=== PATIENT | female | born 1970 | race Caucasian/White ===

== ENCOUNTER 2019-12-21 15:41 | Inpatient (IN) | payer MEDICARE, OTHER ==
[~2019-12-21] VITALS: Ht 182.9 cm; Wt 209.6 kg
[2019-12-21] MEDS ORDERED: HUMALOG KW100 UNIT/1 SC (15:50)
[2019-12-21] MEDS ORDERED: TRESIBA FL200 UNIT/2 SC (15:50)
[2019-12-21] MEDS ORDERED: HYDACE10B PO (15:51)
[2019-12-21] MEDS ORDERED: POTA10T PO (15:51)
[2019-12-21] MEDS ORDERED: HYDRA25 (15:52)
[2019-12-21] MEDS ORDERED: FURO40 PO (15:52)
[2019-12-21] MEDS ORDERED: METO25 (15:52)
[2019-12-21] MEDS ORDERED: Isosorbide Mono30 MG PO (15:52)
[2019-12-21] MEDS ORDERED: ZOCOR20 MG PO (15:53)
[2019-12-21] MEDS ORDERED: LEVSOD112 PO (15:53)
[2019-12-21] MEDS ORDERED: GABA400 PO (15:54)
[2019-12-21] MEDS ORDERED: ALPR1 PO (15:54)
[2019-12-21] MEDS ORDERED: ZOLP10 PO (15:54)
[2019-12-21] MEDS ORDERED: Aspirin EC81 MG PO (15:55)
[2019-12-21] MEDS ORDERED: VENL75ER PO (15:55)
[2019-12-21] MEDS ORDERED: SYMBICORT 80-10.2 GM INH (15:55)
[2019-12-21] MEDS ORDERED: NITR100CA PO ×2 (15:55→21:38)
[2019-12-21] MEDS ORDERED: ALBU2.5V5 INH (15:55)
[2019-12-21 16:38] LABS: BASOPHILS ABSOLUTE AUTO 0.03 K/mm3 (0.00-0.23); BASOPHILS PERCENT AUTO 0 % (0-2); EOSINOPHILS ABSOLUTE AUTO 0.51 K/mm3 (0.00-0.68); EOSINOPHILS PERCENT AUTO 6 % (0-6); Hematocrit 30.5 % (33.0-51.0); Hemoglobin 8.5 g/dL (11.5-16.0); IMMATURE GRAN ABSOLUTE AUTO 0.04 K/mm3 (0.00-0.10); IMMATURE GRAN PERCENT AUTO 1 % (0-1); LYMPHOCYTES ABSOLUTE AUTO 0.43 K/mm3 (0.84-5.20); LYMPHOCYTES PERCENT AUTO 5 % (21-46); MONOCYTES ABSOLUTE AUTO 0.41 K/mm3 (0.16-1.47); MONOCYTES PERCENT AUTO 5 % (4-13); Mean Corpuscular HGB 25.6 pg (26.0-34.0); Mean Corpuscular HGB Conc 27.9 g/dL (31.5-36.5); Mean Corpuscular Volume 92 fL (80-100); NEUTROPHILS ABSOLUTE AUTO 6.52 K/mm3 (1.96-9.15); NEUTROPHILS PERCENT AUTO 82 % (41-73); Platelet Count 279 K/mm3 (150-400); RDW Coefficient Variation 15.9 % (11.7-14.2); RDW Standard Deviation 53.3 fL (35.1-46.3); Red Blood Cell Count 3.32 M/mm3 (3.80-5.20); White Blood Cell Count 7.94 K/mm3 (4.00-11.30)
[2019-12-21 16:48] LABS: C-REACTIVE PROTEIN, EXT RANGE 5.59 mg/dL (0.000-0.300)
[2019-12-21 16:50] LABS: Albumin, Blood 2.9 g/dL (3.4-5.0); Albumin/Globulin Ratio 0.8 (0.8-1.8); Bilirubin, Total 0.3 mg/dL (0.1-1.0); Bun/Creatinine Ratio 23.2 (12.0-20.0); Calcium, Blood 8.9 mg/dL (8.5-10.1); Creatinine, Blood 1.64 mg/dL (0.40-1.00); Globulin, Blood 3.8 g/dL (2.2-4.0); Total Protein, Blood 6.7 g/dL (6.4-8.2)
[2019-12-21] MEDS ORDERED: TRULICITY1.5 MG/0.1 SC (18:03)
[2019-12-21] MEDS ORDERED: Neurontin400 MG PO (18:04)
[2019-12-21] MEDS ORDERED: HYDHCL25 PO (18:04)
[2019-12-21] MEDS ORDERED: HYDRA25 PO (18:05)
[2019-12-21] MEDS ORDERED: TORSE20 PO (18:05)
[2019-12-21] MEDS ORDERED: EUTHYROX112 MC1 PO (18:06)
[2019-12-21] MEDS ORDERED: Simvastatin20 MG PO (18:06)
[2019-12-21] MEDS ORDERED: METOPROLOL TART25 MG PO (18:06)
[2019-12-21] MEDS ORDERED: ISOSORBIDE MONO30 MG PO (18:06)
[2019-12-21] MEDS ORDERED: K-Dur 20 meq T20 MEQ PO (18:07)
[2019-12-21] MEDS ORDERED: Norco 10-325 T1 EACH PO (21:40)
[2019-12-21 22:40] LABS: Source, Urine Clean Catch
[2019-12-21 22:54] LABS: Appearance, Urine Clear (Clear); Bilirubin, Urine Neg (Neg); Blood, Urine Neg (Neg); Color, Urine Yellow (P-Yellow); Glucose Qualitative, Urine Neg (Neg); Ketones, Urine Neg (Neg); Leukocyte Esterase, Urine Neg (Neg); Nitrite, Urine Neg (Neg); Protein, Urine Neg (Neg); Specific Gravity, Urine 1.015 (1.003-1.022); Urobilinogen, Urine NORM (Normal)
--- NOTE | 2019-12-22 04:13 | NUR ---
SHIFT SUMMARY PT WAS NEW ER ADMIT ([id number]), XFER'D VIA SLIDER, PT STATES SHE IS UNABLE TO AMBULATE AT THIS TIME, C/O PAIN IN LEGS & BACK (STATES WORST PAIN IS IN L LEG), MEDICATED PER JUN FOR PAIN, NO OTHER C/O ANY KIND, CLEANED & LIGHTLY DRESSED BLE AND PLACED CHUCKES UNDER FOR MODERATE WEEPING, PT SLEPT T/O THE NIGHT, SLEEPING AT THIS TIME, CALL LIGHT IN REACH, WILL CONT TO MONITOR UNTIL REPORT GIVEN TO DAY RN.
[2019-12-22 05:43] LABS: BASOPHILS ABSOLUTE AUTO 0.04 K/mm3 (0.00-0.23); BASOPHILS PERCENT AUTO 0 % (0-2); EOSINOPHILS ABSOLUTE AUTO 0.45 K/mm3 (0.00-0.68); EOSINOPHILS PERCENT AUTO 5 % (0-6); Hematocrit 31.9 % (33.0-51.0); IMMATURE GRAN ABSOLUTE AUTO 0.05 K/mm3 (0.00-0.10); IMMATURE GRAN PERCENT AUTO 1 % (0-1); LYMPHOCYTES ABSOLUTE AUTO 0.34 K/mm3 (0.84-5.20); LYMPHOCYTES PERCENT AUTO 4 % (21-46); MONOCYTES ABSOLUTE AUTO 0.56 K/mm3 (0.16-1.47); MONOCYTES PERCENT AUTO 6 % (4-13); Mean Corpuscular HGB 25.8 pg (26.0-34.0); Mean Corpuscular HGB Conc 28.2 g/dL (31.5-36.5); Mean Corpuscular Volume 91 fL (80-100); Mean Platelet Volume 10.9 fL (9.1-12.4); NEUTROPHILS ABSOLUTE AUTO 7.79 K/mm3 (1.96-9.15); NEUTROPHILS PERCENT AUTO 84 % (41-73); Platelet Count 305 K/mm3 (150-400); RDW Coefficient Variation 15.9 % (11.7-14.2); RDW Standard Deviation 52.3 fL (35.1-46.3); Red Blood Cell Count 3.49 M/mm3 (3.80-5.20); White Blood Cell Count 9.23 K/mm3 (4.00-11.30)
[2019-12-22 06:07] LABS: Bun/Creatinine Ratio 21.5 (12.0-20.0); Calcium, Blood 8.4 mg/dL (8.5-10.1); Creatinine, Blood 1.58 mg/dL (0.40-1.00); Potassium, Blood 3.9 mmol/L (3.5-5.5)
--- NOTE | 2019-12-22 17:16 | NUR ---
SHIFT SUMMARY PATIENT ALERT, ORIENTED, AND COOPERATIVE WITH CARE. PATIENT'S LEGS CONTINUE TO WEEP. PATIENT BEDBOUND AT THIS TIME, STATES SHE WALKS OCCASIONALLY AT HOME. PATIENT REFUSED TO WORK WITH THERAPY THIS AFTERNOON. PATIENT'S SON IN THE ROOM THIS AFTERNOON TO VISIT. PATIENT REFUSED BREAKFAST AND LUNCH THIS SHIFT. PATIENT MEDICATED FOR PAIN THROUGHOUT THIS SHIFT. PATIENT DENIES NEEDS THROUGHOUT THIS SHIFT. PATIENT CURRENTLY SITTING UP IN BED WATCHING TELEVISION.
[2019-12-23 05:28] LABS: BASOPHILS ABSOLUTE AUTO 0.02 K/mm3 (0.00-0.23); BASOPHILS PERCENT AUTO 0 % (0-2); EOSINOPHILS PERCENT AUTO 0 % (0-6); Hematocrit 29.5 % (33.0-51.0); Hemoglobin 8.2 g/dL (11.5-16.0); IMMATURE GRAN ABSOLUTE AUTO 0.02 K/mm3 (0.00-0.10); IMMATURE GRAN PERCENT AUTO 0 % (0-1); LYMPHOCYTES ABSOLUTE AUTO 0.31 K/mm3 (0.84-5.20); LYMPHOCYTES PERCENT AUTO 5 % (21-46); MONOCYTES PERCENT AUTO 3 % (4-13); Mean Corpuscular HGB 25.8 pg (26.0-34.0); Mean Corpuscular HGB Conc 27.8 g/dL (31.5-36.5); Mean Corpuscular Volume 93 fL (80-100); NEUTROPHILS ABSOLUTE AUTO 6.31 K/mm3 (1.96-9.15); NEUTROPHILS PERCENT AUTO 92 % (41-73); Platelet Count 264 K/mm3 (150-400); RDW Coefficient Variation 15.5 % (11.7-14.2); RDW Standard Deviation 53.1 fL (35.1-46.3); Red Blood Cell Count 3.18 M/mm3 (3.80-5.20); White Blood Cell Count 6.86 K/mm3 (4.00-11.30)
[2019-12-23 05:51] LABS: Bun/Creatinine Ratio 23.9 (12.0-20.0); Calcium, Blood 8.5 mg/dL (8.5-10.1); Creatinine, Blood 1.59 mg/dL (0.40-1.00); Potassium, Blood 4.7 mmol/L (3.5-5.5)
--- NOTE | 2019-12-23 18:44 | NUR ---
SHIFT SUMMARY PATIENT IS PLEASANT, ALERT AND ORIENTED. SHE DOES NOTE THAT SHE REQUESTS TO BE TURNED EVERY TWO HOURS. SHE STATES NO ONE HAD BEEN DOING THAT FOR HER AT THIS TIME. DENIES ANY OTHER CONCERNS AT THIS TIME. SHE IS JUST STARTING TO FEEL BETTER. HER BLOOD SUGARS ARE GOING UP AT THIS TIME.
--- NOTE | 2019-12-24 07:26 | NUR ---
SHIFT SUMMARY PATIENT ALERT AND ORIENTED. REQUIRES MAX ASSISTANCE FROM TWO PEOPLE FOR ALL BED MOBILITY. PATIENT ASKING FOR PAIN MEDS EVERY TWO HOURS WHILE AWAKE. MEDICATED PER EMAR. BED IN LOWEST POSITION WITH WHEELS LOCKED. CALL LIGHT WITHIN REACH. REPORT GIVEN TO ONCOMING RN.
--- NOTE | 2019-12-25 07:05 | NUR ---
SHIFT SUMMARY PATIENT ALERT AND ORIENTED. STAYED IN BED AND SLEPT MOST OF THE NIGHT. CHANGED PATIENT'S PURE WICK. IV PATENT AND FLUSHED. PATIENT MEDICATED FOR PAIN NEEDED PER EMAR. BED IN LOWEST POSITION WITH WHEELS LOCKED. CALL LIGHT WITHIN REACH. REPORT GIVEN TO ONCOMING RN.
--- NOTE | 2019-12-25 18:14 | NUR ---
SHIFT SUMMARY PATIENT IS PLEASANT, ALERT AND ORIENTED. SHE HAD WOUND CARE DONE TODAY AND A BED BATH. SHE DENIES ANY CONCERNS AT THIS TIME. HER PAIN IS GETTING BETTER EXCEPT DURING WOUND CARE. LEGS ARE DRAINING QUITE A BIT NOW. STILL HAS THE PURE WICK IN PLACE. SHE IS GETTING STRONGER AND IS ABLE TO HELP PULL HERSELF UP IN BED.
--- NOTE | 2019-12-26 07:23 | NUR ---
SHIFT SUMMARY PATIENT ALERT AND ORIENTED. MEDICATED NEEDED PER EMAR FOR PAIN. IV PATENT AND FLUSHED. PATIENT SLEPT WELL OVERNIGHT. BED IN LOWEST POSITION WITH WHEELS LOCKED. CALL LIGHT WITHIN REACH. REPORT GIVEN TO ONCOMING RN.
[2019-12-26 10:01] LABS: Percent Saturation 13.7 % (15.0-50.0)
[2019-12-26] MEDS ORDERED: FLUZONE QU IM (10:07)
[2019-12-26] MEDS ORDERED: SENN187 PO (10:07)
--- NOTE | 2019-12-26 16:59 | NUR ---
Initial spiritual care note: Maryjane was pleasantly dismissive. She denied concerns and told me she is being d/c to rehab today. She is hopeful for recovery and tells me she has strong support from family.
== END 2019-12-26 18:13 | DRG 543 ==
LOC: ER 15:41 → ERHOLD 15:43 → MEDS 20:49 → ENPENDDIS 12-26 09:35 → MEDS 12-26 18:13
PROVIDERS: Emergency Medicine; Family Medicine; Hospitalist; Internal Medicine; Nurse Practitioner Acute Care; ADMIT Internal Medicine
DX: M48.56XA Collapsed vertebra, not elsewhere classified, lumbar region, initial encounter for fracture (principal); Z68.44 Body mass index [BMI] 60.0-69.9, adult; E11.22 Type 2 diabetes mellitus with diabetic chronic kidney disease; E11.51 Type 2 diabetes mellitus with diabetic peripheral angiopathy without gangrene; E11.621 Type 2 diabetes mellitus with foot ulcer; N18.3 Chronic kidney disease, stage 3 (moderate); Z79.4 Long term (current) use of insulin; E66.01 Morbid (severe) obesity due to excess calories; D64.9 Anemia, unspecified; I89.0 Lymphedema, not elsewhere classified; E03.9 Hypothyroidism, unspecified; E78.5 Hyperlipidemia, unspecified; F41.8 Other specified anxiety disorders; F17.210 Nicotine dependence, cigarettes, uncomplicated; G47.00 Insomnia, unspecified; I12.9 Hypertensive chronic kidney disease with stage 1 through stage 4 chronic kidney disease, or unspecified chronic kidney disease
CPT/HCPCS: 36415; 72100; 73590; 80048; 80053; 81003; 82728; 82947; 83540; 83550; 83690; 85025; 85651; 86140; 94640; 94660; 94760; 94762; 96372; 96374; 96375; 96376; 97110; 97162; 97530; 99285-25; 99407; A9270; A9270-GY; G0378; J1170; J1644; J2270; J7509; U0002

== ENCOUNTER 2020-01-23 00:32 | Day surgery (SDC) | payer MEDICARE, OTHER ==
[~2020-01-23 00:32] MED LIST: ALBU2.5V5 INH; ALPR1 PO; Aspirin EC81 MG PO; EUTHYROX112 MC1 PO; FLUZONE QU IM; FURO40 PO; GABA400 PO; HUMALOG KW100 UNIT/1 SC; HYDACE10B PO; HYDHCL25 PO; HYDRA25; HYDRA25 PO; ISOSORBIDE MONO30 MG PO; Isosorbide Mono30 MG PO; K-Dur 20 meq T20 MEQ PO; LEVSOD112 PO; METO25; METOPROLOL TART25 MG PO; NITR100CA PO; Neurontin400 MG PO; Norco 10-325 T1 EACH PO; POTA10T PO; SENN187 PO; SYMBICORT 80-10.2 GM INH; Simvastatin20 MG PO; TORSE20 PO; TRESIBA FL200 UNIT/2 SC; TRULICITY1.5 MG/0.1 SC; VENL75ER PO; ZOCOR20 MG PO; ZOLP10 PO
== END 2020-01-23 22:40 | disposition home or self-care (01) ==
LOC: WOUND 00:32
DX: I87.2 Venous insufficiency (chronic) (peripheral) (principal); E10.622 Type 1 diabetes mellitus with other skin ulcer; E10.22 Type 1 diabetes mellitus with diabetic chronic kidney disease; E10.40 Type 1 diabetes mellitus with diabetic neuropathy, unspecified; L97.819 Non-pressure chronic ulcer of other part of right lower leg with unspecified severity; L97.829 Non-pressure chronic ulcer of other part of left lower leg with unspecified severity; L89.622 Pressure ulcer of left heel, stage 2; F17.200 Nicotine dependence, unspecified, uncomplicated; J44.9 Chronic obstructive pulmonary disease, unspecified; N18.6 End stage renal disease; Z79.899 Other long term (current) drug therapy; Z88.0 Allergy status to penicillin
CPT/HCPCS: G0463

== ENCOUNTER 2020-02-08 18:59 | Inpatient (IN) | payer MEDICARE, OTHER ==
[~2020-02-08] VITALS: Ht 182.9 cm; Wt 172.4 kg
[~2020-02-08 18:59] MED LIST changes: -ALBU2.5V5 INH; -ALPR1 PO; -Aspirin EC81 MG PO; -FURO40 PO; -HUMALOG KW100 UNIT/1 SC; -HYDHCL25 PO; -HYDRA25 PO; -ISOSORBIDE MONO30 MG PO; -K-Dur 20 meq T20 MEQ PO; -LEVSOD112 PO; -METOPROLOL TART25 MG PO; -Neurontin400 MG PO; -SYMBICORT 80-10.2 GM INH; -TRESIBA FL200 UNIT/2 SC; -TRULICITY1.5 MG/0.1 SC; -VENL75ER PO; -ZOCOR20 MG PO; -ZOLP10 PO
[2020-02-08 20:23] LABS: BASOPHILS ABSOLUTE AUTO 0.03 K/mm3 (0.00-0.23); BASOPHILS PERCENT AUTO 1 % (0-2); EOSINOPHILS ABSOLUTE AUTO 0.35 K/mm3 (0.00-0.68); EOSINOPHILS PERCENT AUTO 8 % (0-6); Hematocrit 29.2 % (33.0-51.0); Hemoglobin 8.4 g/dL (11.5-16.0); IMMATURE GRAN ABSOLUTE AUTO 0.01 K/mm3 (0.00-0.10); IMMATURE GRAN PERCENT AUTO 0 % (0-1); LYMPHOCYTES ABSOLUTE AUTO 0.35 K/mm3 (0.84-5.20); LYMPHOCYTES PERCENT AUTO 8 % (21-46); MONOCYTES PERCENT AUTO 7 % (4-13); Mean Corpuscular HGB 25.1 pg (26.0-34.0); Mean Corpuscular HGB Conc 28.8 g/dL (31.5-36.5); Mean Corpuscular Volume 87 fL (80-100); Mean Platelet Volume 11.5 fL (9.1-12.4); NEUTROPHILS ABSOLUTE AUTO 3.43 K/mm3 (1.96-9.15); NEUTROPHILS PERCENT AUTO 77 % (41-73); Platelet Count 232 K/mm3 (150-400); RDW Coefficient Variation 16.6 % (11.7-14.2); RDW Standard Deviation 53.2 fL (35.1-46.3); Red Blood Cell Count 3.34 M/mm3 (3.80-5.20); White Blood Cell Count 4.47 K/mm3 (4.00-11.30)
[2020-02-08] MEDS ORDERED: ZOCOR20 MG PO (20:40)
[2020-02-08] MEDS ORDERED: LEVSOD112 PO (20:40)
[2020-02-08] MEDS ORDERED: FURO40 PO (20:40)
[2020-02-08] MEDS ORDERED: Neurontin400 MG PO (20:41)
[2020-02-08] MEDS ORDERED: SYMBICORT 80-10.2 GM INH (20:41)
[2020-02-08] MEDS ORDERED: HYDHCL25 PO (20:41)
[2020-02-08] MEDS ORDERED: ISOSORBIDE MONO60 MG PO (20:42)
[2020-02-08] MEDS ORDERED: HYDRA25 PO (20:42)
[2020-02-08] MEDS ORDERED: METOPROLOL TART25 MG PO (20:42)
[2020-02-08] MEDS ORDERED: K-Dur 20 meq T20 MEQ PO (20:42)
[2020-02-08] MEDS ORDERED: CYCL10 PO (20:44)
[2020-02-08 20:45] LABS: Albumin/Globulin Ratio 0.8 (0.8-1.8); BASOPHILS ABSOLUTE MAN 0.04 K/mm3 (0.00-0.23); BASOPHILS PERCENT MAN 1 % (0-2); Bilirubin, Total 0.5 mg/dL (0.1-1.0); Bun/Creatinine Ratio 14.7 (12.0-20.0); Calcium, Blood 8.8 mg/dL (8.5-10.1); Creatinine, Blood 1.56 mg/dL (0.40-1.00); EOSINOPHILS ABSOLUTE MAN 0.22 K/mm3 (0.00-0.68); EOSINOPHILS PERCENT MAN 5 % (0-6); Globulin, Blood 3.6 g/dL (2.2-4.0); LYMPHOCYTES ABSOLUTE MAN 0.17 K/mm3 (0.84-5.20); LYMPHOCYTES PERCENT MAN 4 % (21-46); MONOCYTES ABSOLUTE MAN 0.17 K/mm3 (0.16-1.47); MONOCYTES PERCENT MAN 4 % (4-13); NEUTROPHILS ABSOLUTE MAN 3.84 K/mm3 (1.96-9.15); Potassium, Blood 4.3 mmol/L (3.5-5.5); SEG NEUTROPHILS PERCENT MAN 86 % (41-73); TOTAL CELLS COUNTED 100; Total Protein, Blood 6.6 g/dL (6.4-8.2)
[2020-02-08] MEDS ORDERED: TRESIBA FL200 UNIT/2 SC (20:46)
[2020-02-08] MEDS ORDERED: Venlafaxine HCl75 MG PO (20:46)
[2020-02-08] MEDS ORDERED: TRULICITY1.5 MG/0.1 SC (20:47)
[2020-02-08] MEDS ORDERED: ZOLP10 PO (20:47)
[2020-02-08] MEDS ORDERED: ALPR1 PO (20:47)
[2020-02-08] MEDS ORDERED: Aspirin EC81 MG PO (20:48)
[2020-02-08] MEDS ORDERED: ZOFRAN4 MG PO (21:00)
[2020-02-08] MEDS ORDERED: ALBU90OI INH (21:01)
[2020-02-08] MEDS ORDERED: NOVOLOG FL100 UNIT/3 SC (21:01)
[2020-02-09 02:08] LABS: Source, Urine Clean Catch
[2020-02-09 02:14] LABS: Bilirubin, Urine Neg (Neg); Blood, Urine Neg (Neg); Glucose Qualitative, Urine Neg (Neg); Ketones, Urine Neg (Neg); Leukocyte Esterase, Urine 1+ (Neg); Nitrite, Urine Neg (Neg); Protein, Urine Neg (Neg); Urobilinogen, Urine NORM (Normal)
[2020-02-09 02:16] LABS: Appearance, Urine Clear (Clear); Color, Urine Yellow (P-Yellow)
[2020-02-09 02:24] LABS: Bacteria Few /hpf; Red Blood Cells, Urine Not Seen /hpf (0-2); Squamous Epithelial Cells Few /hpf (Few); White Blood Cells, Urine 0-2 /hpf (0-5)
--- NOTE | 2020-02-09 04:54 | NUR ---
COTTON BUYER SUMMARY A/OX4. SEVERAL ULCERS TO LLE, CELLULITIS BILATERALLY. SEE PICTURES IN CHART. PT GIVEN OT DOSE OF HER EVENING MEDICATIONS. C/O SEVERE BACK PAIN, MEDICATED PER EMAR. COMPLIANT WITH CPAP, CONTINOUS BIOX IN PLACE. VSS. NO ACUTE DISTRESS NOTED. BED IN LOWEST POSITION WITH CALL LIGHT IN REACH. WILL CONTINUE TO MONITOR AND REPORT TO ONCOMING RN.
[2020-02-09 05:50] LABS: BASOPHILS ABSOLUTE AUTO 0.03 K/mm3 (0.00-0.23); BASOPHILS PERCENT AUTO 1 % (0-2); EOSINOPHILS ABSOLUTE AUTO 0.35 K/mm3 (0.00-0.68); EOSINOPHILS PERCENT AUTO 11 % (0-6); Hematocrit 26.2 % (33.0-51.0); Hemoglobin 7.5 g/dL (11.5-16.0); IMMATURE GRAN ABSOLUTE AUTO 0.02 K/mm3 (0.00-0.10); IMMATURE GRAN PERCENT AUTO 1 % (0-1); LYMPHOCYTES ABSOLUTE AUTO 0.35 K/mm3 (0.84-5.20); LYMPHOCYTES PERCENT AUTO 11 % (21-46); MONOCYTES ABSOLUTE AUTO 0.27 K/mm3 (0.16-1.47); MONOCYTES PERCENT AUTO 8 % (4-13); Mean Corpuscular HGB 24.9 pg (26.0-34.0); Mean Corpuscular HGB Conc 28.6 g/dL (31.5-36.5); Mean Corpuscular Volume 87 fL (80-100); Mean Platelet Volume 11.5 fL (9.1-12.4); NEUTROPHILS ABSOLUTE AUTO 2.29 K/mm3 (1.96-9.15); NEUTROPHILS PERCENT AUTO 69 % (41-73); Platelet Count 202 K/mm3 (150-400); RDW Coefficient Variation 16.6 % (11.7-14.2); RDW Standard Deviation 51.8 fL (35.1-46.3); Red Blood Cell Count 3.01 M/mm3 (3.80-5.20); White Blood Cell Count 3.31 K/mm3 (4.00-11.30)
[2020-02-09 06:05] LABS: Albumin, Blood 2.6 g/dL (3.4-5.0); Albumin/Globulin Ratio 0.8 (0.8-1.8); Bilirubin, Total 0.4 mg/dL (0.1-1.0); Bun/Creatinine Ratio 14.6 (12.0-20.0); Calcium, Blood 8.5 mg/dL (8.5-10.1); Creatinine, Blood 1.64 mg/dL (0.40-1.00); Globulin, Blood 3.4 g/dL (2.2-4.0); Potassium, Blood 3.9 mmol/L (3.5-5.5)
--- NOTE | 2020-02-09 18:35 | NUR ---
PT SLEPT LAST THIS MORNING, AWAKE, ALERT AND ORIENTED T/O THE REST OF THE SHIFT WITH SHORT NAPS. SHE DID WORK WITH O.T THIS MORNING, ABLE TO STAND, TRANSFER AND AMBULATE SHORT DISTANCE. NO ACUTE CHANGES NOTED THIS SHIFT, WILL CONTINUE TO MONITOR AND REPORT TO ONCOMING RN
--- NOTE | 2020-02-09 19:10 | NUR ---
ASSUMED CARE RECEIVED REPORT FROM MAGDALENO STEVENS. ASSUMED CARE OF PT. PT RESTING COMFORTABLY AT THIS TIME, NO S/S ACUTE DISTRESS NOTED, RESPS EVEN AND UNLABORED. DENIES NEEDS. CALL LIGHT, POSSESSIONS IN REACH, BED IN LOW POSITION. WILL CONTINUE TO MONITOR.
--- NOTE | 2020-02-09 21:20 | NUR ---
SPOKE TO DR. RIVERS REGARDING PT'S CRITICAL BLOOD GLUCOSE. ORDERS RECEIVED. CONTINUE TO MONITOR.
--- NOTE | 2020-02-10 00:32 | NUR ---
SPOKE TO DR. BLAKE REGARDING PT'S RECEIVING IVPB ABX. ORDERS RECEIVED FOR TKO IVF. CONTINUE TO MONITOR.
[2020-02-10 05:39] LABS: BASOPHILS ABSOLUTE AUTO 0.03 K/mm3 (0.00-0.23); BASOPHILS PERCENT AUTO 1 % (0-2); EOSINOPHILS PERCENT AUTO 12 % (0-6); Hematocrit 27.4 % (33.0-51.0); Hemoglobin 7.9 g/dL (11.5-16.0); IMMATURE GRAN ABSOLUTE AUTO 0.01 K/mm3 (0.00-0.10); IMMATURE GRAN PERCENT AUTO 0 % (0-1); LYMPHOCYTES ABSOLUTE AUTO 0.46 K/mm3 (0.84-5.20); LYMPHOCYTES PERCENT AUTO 14 % (21-46); MONOCYTES ABSOLUTE AUTO 0.34 K/mm3 (0.16-1.47); MONOCYTES PERCENT AUTO 10 % (4-13); Mean Corpuscular HGB 25.1 pg (26.0-34.0); Mean Corpuscular HGB Conc 28.8 g/dL (31.5-36.5); Mean Corpuscular Volume 87 fL (80-100); Mean Platelet Volume 10.9 fL (9.1-12.4); NEUTROPHILS ABSOLUTE AUTO 2.16 K/mm3 (1.96-9.15); NEUTROPHILS PERCENT AUTO 64 % (41-73); Platelet Count 226 K/mm3 (150-400); RDW Standard Deviation 53.6 fL (35.1-46.3); Red Blood Cell Count 3.15 M/mm3 (3.80-5.20)
[2020-02-10 06:14] LABS: Bun/Creatinine Ratio 15.3 (12.0-20.0); Calcium, Blood 8.9 mg/dL (8.5-10.1); Creatinine, Blood 1.57 mg/dL (0.40-1.00); Potassium, Blood 3.9 mmol/L (3.5-5.5)
--- NOTE | 2020-02-10 06:53 | NUR ---
SPOKE TO DR. BLAKE REGARDING PT'S CRITICAL BLOOD GLUCOSE AND INTERVENTIONS DONE. NO NEW ORDERS RECEIVED. CONTINUE TO MONITOR.
--- NOTE | 2020-02-10 07:44 | NUR ---
SHIFT SUMMARY PT SLEPT ON AND OFF T/O NIGHT, TOLERATED CPAP WELL. PAIN MANAGED WITH MEDS PER EMAR. BLOOD GLUCOSE LEVELS UNSTABLE T/O NIGHT D/T PT NOT EATING MUCH, SEE PRIOR NOTES. CBG 84 AFTER SYRINGE OF D50 ADMINISTERED THIS AM, ALONG WITH A SNACK. PT ASLEEP AT THIS TIME, RESPS EVEN AND UNLABORED, O2 SATS STABLE ON 2L O2/NC. VS AND AM LABS REVIEWED. PT DENIES NEEDS. CALL LIGHT, POSSESSIONS IN REACH, BED IN LOW POSITION. REPORT GIVEN TO MAGDALENO LEONARDO.
[2020-02-10] MEDS ORDERED: LACTOBACILLUS1 EAC4 PO (12:44)
[2020-02-10] MEDS ORDERED: CLIN150 PO (12:45)
[2020-02-10] MEDS ORDERED: Norco 5-325 Ta1 EACH PO (14:32)
== END 2020-02-10 14:53 | disposition home health service (06) | DRG 603 ==
LOC: ER 18:59 → MEDS 19:00
PROVIDERS: Emergency Medicine; Student in an Organized Health Care Education/Training Program; ADMIT Internal Medicine
DX: L03.115 Cellulitis of right lower limb (principal); Z68.43 Body mass index [BMI] 50.0-59.9, adult; L03.116 Cellulitis of left lower limb; J45.909 Unspecified asthma, uncomplicated; E10.22 Type 1 diabetes mellitus with diabetic chronic kidney disease; I12.9 Hypertensive chronic kidney disease with stage 1 through stage 4 chronic kidney disease, or unspecified chronic kidney disease; N18.30 Chronic kidney disease, stage 3 unspecified; D63.1 Anemia in chronic kidney disease; E78.5 Hyperlipidemia, unspecified; E03.9 Hypothyroidism, unspecified; E87.6 Hypokalemia; G89.29 Other chronic pain; M54.9 Dorsalgia, unspecified; F32.9 Major depressive disorder, single episode, unspecified; F41.9 Anxiety disorder, unspecified; G47.00 Insomnia, unspecified; E66.01 Morbid (severe) obesity due to excess calories; M19.90 Unspecified osteoarthritis, unspecified site; F17.210 Nicotine dependence, cigarettes, uncomplicated; Z86.14 Personal history of Methicillin resistant Staphylococcus aureus infection; Z88.0 Allergy status to penicillin; Z79.82 Long term (current) use of aspirin; Z79.4 Long term (current) use of insulin; Z79.899 Other long term (current) drug therapy
CPT/HCPCS: 36415; 71045; 80048; 80053; 81001; 82947; 83880; 85025; 87070; 87077; 87147; 87186; 87205; 94640; 94660; 94760; 94762; 96365; 96366; 96367; 96372; 96375; 96376; 97165; 97530; 99285-25; A9270; A9270-GY; G0378; J0696; J1650; J1885; J2405; J3010; J3370; J7030; J7050

== ENCOUNTER → 2020-04-12 | Outpatient (CLI) | payer MEDICARE, OTHER ==
[~2020-04-12] MED LIST changes: +ALBU90OI INH; +ALPR1 PO; +Aspirin EC81 MG PO; +CLIN150 PO; +CYCL10 PO; +FURO40 PO; +HYDHCL25 PO; +HYDRA25 PO; +ISOSORBIDE MONO60 MG PO; +K-Dur 20 meq T20 MEQ PO; +LACTOBACILLUS1 EAC4 PO; +LEVSOD112 PO; +METOPROLOL TART25 MG PO; +NOVOLOG FL100 UNIT/3 SC; +Neurontin400 MG PO; +Norco 5-325 Ta1 EACH PO; +SYMBICORT 80-10.2 GM INH; +TRESIBA FL200 UNIT/2 SC; +TRULICITY1.5 MG/0.1 SC; +Venlafaxine HCl75 MG PO; +ZOCOR20 MG PO; +ZOFRAN4 MG PO; +ZOLP10 PO
[2020-04-12 17:57] LABS: BASOPHILS ABSOLUTE AUTO 0.05 K/mm3 (0.00-0.23); BASOPHILS PERCENT AUTO 1 % (0-2); EOSINOPHILS ABSOLUTE AUTO 0.45 K/mm3 (0.00-0.68); EOSINOPHILS PERCENT AUTO 9 % (0-6); Hematocrit 34.3 % (33.0-51.0); Hemoglobin 10.2 g/dL (11.5-16.0); IMMATURE GRAN ABSOLUTE AUTO 0.02 K/mm3 (0.00-0.10); IMMATURE GRAN PERCENT AUTO 0 % (0-1); LYMPHOCYTES ABSOLUTE AUTO 0.35 K/mm3 (0.84-5.20); LYMPHOCYTES PERCENT AUTO 7 % (21-46); MONOCYTES ABSOLUTE AUTO 0.33 K/mm3 (0.16-1.47); MONOCYTES PERCENT AUTO 7 % (4-13); Mean Corpuscular HGB 26.7 pg (26.0-34.0); Mean Corpuscular HGB Conc 29.7 g/dL (31.5-36.5); Mean Corpuscular Volume 90 fL (80-100); Mean Platelet Volume 11.6 fL (9.1-12.4); NEUTROPHILS ABSOLUTE AUTO 3.62 K/mm3 (1.96-9.15); NEUTROPHILS PERCENT AUTO 75 % (41-73); Platelet Count 253 K/mm3 (150-400); RDW Coefficient Variation 15.9 % (11.7-14.2); RDW Standard Deviation 52.9 fL (35.1-46.3); RETICULOCYTE ABSOLUTE 0.0615 M/mm3 (0.0200-0.1100); RETICULOCYTE COUNT PERCENT 1.61 % (0.50-2.50); Red Blood Cell Count 3.82 M/mm3 (3.80-5.20); White Blood Cell Count 4.82 K/mm3 (4.00-11.30)
[2020-04-12 18:14] LABS: Creatinine, Blood 1.45 mg/dL (0.40-1.00); Free Thyroxine 1.33 ng/dL (0.70-1.60); Potassium, Blood 4.3 mmol/L (3.5-5.5)
[2020-04-12 18:36] LABS: Thyroid Stimulating Hormone 2.88 uIU/mL (0.360-4.800)
== END ==
LOC: LAB 14:52 → LAB SHORT 14:52
PROVIDERS: Physician Assistant
DX: N18.30 Chronic kidney disease, stage 3 unspecified (principal); D63.1 Anemia in chronic kidney disease; D50.8 Other iron deficiency anemias; D51.9 Vitamin B12 deficiency anemia, unspecified; E03.9 Hypothyroidism, unspecified
CPT/HCPCS: 80048; 82607; 82746; 83540; 83550; 84439; 84443; 85025; 85045

== ENCOUNTER → 2020-05-03 | Outpatient (CLI) | payer MEDICARE, OTHER ==
[2020-05-03 19:48] LABS: BASOPHILS ABSOLUTE AUTO 0.07 K/mm3 (0.00-0.23); BASOPHILS PERCENT AUTO 1 % (0-2); EOSINOPHILS ABSOLUTE AUTO 0.57 K/mm3 (0.00-0.68); EOSINOPHILS PERCENT AUTO 10 % (0-6); Hematocrit 34.3 % (33.0-51.0); Hemoglobin 10.2 g/dL (11.5-16.0); IMMATURE GRAN ABSOLUTE AUTO 0.02 K/mm3 (0.00-0.10); IMMATURE GRAN PERCENT AUTO 0 % (0-1); LYMPHOCYTES ABSOLUTE AUTO 0.31 K/mm3 (0.84-5.20); LYMPHOCYTES PERCENT AUTO 6 % (21-46); MONOCYTES PERCENT AUTO 6 % (4-13); Mean Corpuscular HGB 27.1 pg (26.0-34.0); Mean Corpuscular HGB Conc 29.7 g/dL (31.5-36.5); Mean Corpuscular Volume 91 fL (80-100); Mean Platelet Volume 11.3 fL (9.1-12.4); NEUTROPHILS ABSOLUTE AUTO 4.19 K/mm3 (1.96-9.15); NEUTROPHILS PERCENT AUTO 77 % (41-73); Platelet Count 227 K/mm3 (150-400); RDW Coefficient Variation 14.9 % (11.7-14.2); RDW Standard Deviation 49.9 fL (35.1-46.3); Red Blood Cell Count 3.76 M/mm3 (3.80-5.20); White Blood Cell Count 5.46 K/mm3 (4.00-11.30)
[2020-05-03 20:03] LABS: Albumin, Blood 3.3 g/dL (3.4-5.0); Bilirubin, Direct 0.2 mg/dL (0.0-0.3); Bun/Creatinine Ratio 25.6 (12.0-20.0); Creatinine, Blood 1.56 mg/dL (0.40-1.00); Phosphorus, Blood 4.4 mg/dL (2.5-4.9); Potassium, Blood 4.4 mmol/L (3.5-5.5)
[2020-05-03 20:07] LABS: Percent Saturation 22.3 % (15.0-50.0)
[2020-05-03 20:29] LABS: Albumin/Globulin Ratio 0.8 (0.8-1.8); Bilirubin, Indirect 0.3 mg/dL (0.1-0.7); Bilirubin, Total 0.5 mg/dL (0.1-1.0); Globulin, Blood 4.2 g/dL (2.2-4.0); Thyroid Stimulating Hormone 2.82 uIU/mL (0.360-4.800); Total Protein, Blood 7.5 g/dL (6.4-8.2)
[2020-05-07 17:10] LABS: ALBUMIN 3.2 g/dL (2.9-4.4); ALPHA-1-GLOBULIN 0.3 g/dL (0.0-0.4); ALPHA-2-GLOBULIN 0.9 g/dL (0.4-1.0); GAMMA GLOBULIN 1.2 g/dL (0.4-1.8); GLOBULIN, TOTAL 3.5 g/dL (2.2-3.9); IMMUNOGLOBULIN A, QN, SERUM 349 mg/dL (87-352); IMMUNOGLOBULIN G, QN, SERUM 1057 mg/dL (586-1602); IMMUNOGLOBULIN M, QN, SERUM 49 mg/dL (26-217); M-SPIKE Not Observed g/dL (Not Observed); PROTEIN, TOTAL, SERUM 6.7 g/dL (6.0-8.5)
[2020-05-11 08:10] LABS: ANTIGLOMERULAR BM AB 4 units (0-20)
[2020-05-16 10:10] LABS: ANA DIRECT Positive (Negative); ANTI-CENTROMERE B ANTIBODIES <0.2 AI (0.0-0.9); ANTI-DNA (DS) AB QN <0 IU/mL (0-9); ANTI-JO-1 <0.2 AI (0.0-0.9); ANTICHROMATIN ANTIBODIES <0.2 AI (0.0-0.9); ANTIMYELOPEROXIDASE (MPO) ABS <9.0 U/mL (0.0-9.0); ANTIPROTEINASE 3 (PR-3) ABS 5.6 U/mL (0.0-3.5); ANTIRIBOSOMAL P ANTIBODIES <0.2 AI (0.0-0.9); ANTISCLERODERMA-70 ANTIBODIES <0.2 AI (0.0-0.9); ATYPICAL PANCA <1:20 titer (Neg:<1:20); CYTOPLASMIC (C-ANCA) <1:20 titer (Neg:<1:20); PERINUCLEAR (P-ANCA) <1:20 titer (Neg:<1:20); SJOGREN'S ANTI-SS-A <0.2 AI (0.0-0.9); SJOGREN'S ANTI-SS-B <0.2 AI (0.0-0.9); SMITH ANTIBODIES <0.2 AI (0.0-0.9); SMITH/RNP ANTIBODIES <0.2 AI (0.0-0.9)
== END | disposition home or self-care (01) ==
LOC: LAB SHORT 16:12 → LAB 16:12
PROVIDERS: Internal Medicine Nephrology
DX: N18.30 Chronic kidney disease, stage 3 unspecified (principal); N25.81 Secondary hyperparathyroidism of renal origin; E55.9 Vitamin D deficiency, unspecified; E78.00 Pure hypercholesterolemia, unspecified; R76.9 Abnormal immunological finding in serum, unspecified; R94.5 Abnormal results of liver function studies; R94.6 Abnormal results of thyroid function studies; D51.8 Other vitamin B12 deficiency anemias; D52.8 Other folate deficiency anemias; D50.9 Iron deficiency anemia, unspecified
CPT/HCPCS: 80053; 82248; 82533; 82607; 82728; 82746; 82784; 83516; 83520; 83540; 83550; 83883; 83970; 84100; 84155; 84165; 84443; 85025; 86256; 86334

== ENCOUNTER → 2020-05-31 | Outpatient (CLI) | payer MEDICARE, OTHER ==
[2020-05-31 18:12] LABS: Hematocrit 33.5 % (33.0-51.0); Hemoglobin 10.1 g/dL (11.5-16.0); Mean Corpuscular HGB 27.8 pg (26.0-34.0); Mean Corpuscular HGB Conc 30.1 g/dL (31.5-36.5); Mean Corpuscular Volume 92 fL (80-100); Mean Platelet Volume 11.5 fL (9.1-12.4); Platelet Count 232 K/mm3 (150-400); RDW Coefficient Variation 14.2 % (11.7-14.2); RDW Standard Deviation 48.6 fL (35.1-46.3); Red Blood Cell Count 3.63 M/mm3 (3.80-5.20); White Blood Cell Count 4.67 K/mm3 (4.00-11.30)
[2020-05-31 19:19] LABS: BAND PERCENT MAN 1 % (0-8); BASOPHILS ABSOLUTE MAN 0.04 K/mm3 (0.00-0.23); BASOPHILS PERCENT MAN 1 % (0-2); EOSINOPHILS PERCENT MAN 15 % (0-6); LYMPHOCYTES ABSOLUTE MAN 0.14 K/mm3 (0.84-5.20); LYMPHOCYTES PERCENT MAN 3 % (21-46); MONOCYTES ABSOLUTE MAN 0.09 K/mm3 (0.16-1.47); MONOCYTES PERCENT MAN 2 % (4-13); NEUTROPHILS ABSOLUTE MAN 3.68 K/mm3 (1.96-9.15); SEG NEUTROPHILS PERCENT MAN 78 % (41-73); TOTAL CELLS COUNTED 100
[2020-05-31 20:08] LABS: Albumin, Blood 3.4 g/dL (3.4-5.0); Bilirubin, Direct 0.2 mg/dL (0.0-0.3); Bilirubin, Indirect 0.3 mg/dL (0.1-0.7); Bilirubin, Total 0.5 mg/dL (0.1-1.0); Bun/Creatinine Ratio 33.6 (12.0-20.0); Calcium, Blood 8.7 mg/dL (8.5-10.1); Creatinine, Blood 1.49 mg/dL (0.40-1.00); Globulin, Blood 3.3 g/dL (2.2-4.0); Phosphorus, Blood 5.6 mg/dL (2.5-4.9); Potassium, Blood 4.4 mmol/L (3.5-5.5); Total Protein, Blood 6.7 g/dL (6.4-8.2)
== END | disposition home or self-care (01) ==
LOC: LAB SHORT 17:15 → PLD 17:15
PROVIDERS: Internal Medicine Nephrology
DX: N18.30 Chronic kidney disease, stage 3 unspecified (principal); E55.9 Vitamin D deficiency, unspecified; E78.00 Pure hypercholesterolemia, unspecified; R76.9 Abnormal immunological finding in serum, unspecified; R94.5 Abnormal results of liver function studies; R94.6 Abnormal results of thyroid function studies
CPT/HCPCS: 80053; 82248; 84100; 85025

== ENCOUNTER → 2020-06-07 | Outpatient (CLI) | payer MEDICARE, OTHER ==
[2020-06-07 21:34] LABS: Albumin, Blood 3.3 g/dL (3.4-5.0); Albumin/Globulin Ratio 0.9 (0.8-1.8); Bilirubin, Direct 0.2 mg/dL (0.0-0.3); Bilirubin, Indirect 0.8 mg/dL (0.1-0.7); Bun/Creatinine Ratio 32.7 (12.0-20.0); Calcium, Blood 8.8 mg/dL (8.5-10.1); Creatinine, Blood 1.53 mg/dL (0.40-1.00); Globulin, Blood 3.5 g/dL (2.2-4.0); Phosphorus, Blood 4.6 mg/dL (2.5-4.9); Total Protein, Blood 6.8 g/dL (6.4-8.2)
[2020-06-07 21:41] LABS: Creatinine Urine 29.3 mg/dL (27.00-270.00); Protein, Urine Quantitative 10.1 mg/dL (0.0-11.9)
[2020-06-09 09:11] LABS: HBSAG SCREEN Negative (Negative); HEP A AB, IGM Negative (Negative); HEP B CORE AB, IGM Negative (Negative); HEP C VIRUS AB <0.1 (0.0-0.9)
== END | disposition home or self-care (01) ==
LOC: LAB 20:39 → LAB SHORT 20:39
PROVIDERS: Physician Assistant
DX: E55.9 Vitamin D deficiency, unspecified (principal); E78.00 Pure hypercholesterolemia, unspecified; N25.81 Secondary hyperparathyroidism of renal origin; B18.9 Chronic viral hepatitis, unspecified; R76.9 Abnormal immunological finding in serum, unspecified; R94.6 Abnormal results of thyroid function studies
CPT/HCPCS: 80053; 80074; 82043; 82248; 82570; 84100; 84156

== ENCOUNTER → 2020-06-29 | Outpatient (CLI) | payer MEDICARE, OTHER ==
[2020-06-29 17:15] LABS: Hemoglobin 10.2 g/dL (11.5-16.0)
[2020-06-29 17:24] LABS: Albumin, Blood 3.5 g/dL (3.4-5.0); Anion Gap 5 mmol/L (6-16); Blood Urea Nitrogen 41 mg/dL (8-24); Bun/Creatinine Ratio 27.7 (12.0-20.0); CO2, Blood 32 mmol/L (21-32); Calcium, Blood 9.1 mg/dL (8.5-10.1); Chloride, Blood 106 mmol/L (98-108); Creatinine, Blood 1.48 mg/dL (0.40-1.00); Glomerular Filtration Rate 39 (60-); Glucose, Blood 206 mg/dL (70-99); Phosphorus, Blood 4.8 mg/dL (2.5-4.9); Potassium, Blood 4.6 mmol/L (3.5-5.5); Sodium, Blood 143 mmol/L (136-145)
== END | disposition home or self-care (01) ==
LOC: LAB 14:39 → LAB SHORT 14:39
PROVIDERS: Internal Medicine Nephrology
DX: I13.0 Hypertensive heart and chronic kidney disease with heart failure and stage 1 through stage 4 chronic kidney disease, or unspecified chronic kidney disease (principal); I50.9 Heart failure, unspecified; N18.9 Chronic kidney disease, unspecified
CPT/HCPCS: 80069; 85014; 85018

== ENCOUNTER → 2020-07-02 | Outpatient (CLI) | payer MEDICARE, OTHER ==
[2020-07-02 18:12] LABS: Appearance, Urine Cloudy (Clear); Bilirubin, Urine Neg (Neg); Blood, Urine 5+ (Neg); Color, Urine Amber (P-Yellow); Glucose Qualitative, Urine Neg (Neg); Ketones, Urine Neg (Neg); Leukocyte Esterase, Urine 3+ (Neg); Nitrite, Urine Neg (Neg); Protein, Urine 3+ (Neg); Urobilinogen, Urine NORM (Normal)
[2020-07-02 18:33] LABS: Red Blood Cells, Urine 50-100 /hpf (0-2); Squamous Epithelial Cells Mod /hpf (Few); White Blood Cells, Urine 25-50 /hpf (0-5)
[2020-07-02 18:34] LABS: Bacteria Many /hpf
== END | disposition home or self-care (01) ==
LOC: LAB SHORT 13:40 → LAB 13:40
PROVIDERS: Family Medicine
DX: N39.0 Urinary tract infection, site not specified (principal)
CPT/HCPCS: 81001; 87077; 87086; 87186

== ENCOUNTER → 2020-09-18 | Outpatient (CLI) | payer MEDICARE, OTHER | END | disposition home or self-care (01) | LOC: LAB SHORT 12:00 → LAB 12:00 | DX: N39.0 Urinary tract infection, site not specified (principal) | CPT/HCPCS: 87077; 87086; 87186 ==

== ENCOUNTER → 2020-10-26 | Outpatient (CLI) | payer MEDICARE, OTHER ==
[2020-10-26 16:32] LABS: Alanine Aminotransfer (ALT/SGP 85 U/L (12-78); Albumin, Blood 3.5 g/dL (3.4-5.0); Albumin/Globulin Ratio 0.8 (0.8-1.8); Alk Phos 445 U/L (50-136); Amylase, Blood 27 U/L (25-115); Anion Gap 4 mmol/L (6-16); Aspartate Aminotrans (AST/SGOT 59 U/L (12-37); Bilirubin, Direct 0.2 mg/dL (0.0-0.3); Bilirubin, Indirect 0.2 mg/dL (0.1-0.7); Bilirubin, Total 0.4 mg/dL (0.1-1.0); Blood Urea Nitrogen 48 mg/dL (8-24); Bun/Creatinine Ratio 28.7 (12.0-20.0); CO2, Blood 31 mmol/L (21-32); Calcium, Blood 9.2 mg/dL (8.5-10.1); Chloride, Blood 103 mmol/L (98-108); Creatinine, Blood 1.67 mg/dL (0.40-1.00); Globulin, Blood 4.4 g/dL (2.2-4.0); Glomerular Filtration Rate 32 (60-); Glucose, Blood 198 mg/dL (70-99); Phosphorus, Blood 4.5 mg/dL (2.5-4.9); Potassium, Blood 4.7 mmol/L (3.5-5.5); Sodium, Blood 138 mmol/L (136-145); Total Protein, Blood 7.9 g/dL (6.4-8.2)
== END | disposition home or self-care (01) ==
LOC: LAB SHORT 13:55 → LAB 13:55
PROVIDERS: Internal Medicine Nephrology
DX: E10.622 Type 1 diabetes mellitus with other skin ulcer (principal); E10.22 Type 1 diabetes mellitus with diabetic chronic kidney disease; N18.30 Chronic kidney disease, stage 3 unspecified; I13.0 Hypertensive heart and chronic kidney disease with heart failure and stage 1 through stage 4 chronic kidney disease, or unspecified chronic kidney disease; I50.9 Heart failure, unspecified; I89.0 Lymphedema, not elsewhere classified
CPT/HCPCS: 80053; 82150; 82248; 83690; 84100; 85018

== ENCOUNTER → 2020-12-14 | Outpatient (CLI) | payer MEDICARE, OTHER ==
[2020-12-17 13:08] LABS: HPV 16 Negative (Negative); HPV 18 Negative (Negative); HPV OTHER HR TYPES Negative (Negative)
== END | disposition home or self-care (01) ==
LOC: LAB 14:21 → LAB SHORT 14:21
PROVIDERS: Obstetrics & Gynecology
DX: Z01.419 Encounter for gynecological examination (general) (routine) without abnormal findings (principal)
CPT/HCPCS: 87624; G0123

== ENCOUNTER → 2021-02-22 | Outpatient (CLI) | payer MEDICARE, OTHER ==
[2021-02-22 17:02] LABS: BASOPHILS ABSOLUTE AUTO 0.06 K/mm3 (0.00-0.23); BASOPHILS PERCENT AUTO 1 % (0-2); EOSINOPHILS ABSOLUTE AUTO 0.65 K/mm3 (0.00-0.68); EOSINOPHILS PERCENT AUTO 8 % (0-6); Hematocrit 36.2 % (33.0-51.0); Hemoglobin 10.9 g/dL (11.5-16.0); IMMATURE GRAN ABSOLUTE AUTO 0.02 K/mm3 (0.00-0.10); IMMATURE GRAN PERCENT AUTO 0 % (0-1); LYMPHOCYTES ABSOLUTE AUTO 0.38 K/mm3 (0.84-5.20); LYMPHOCYTES PERCENT AUTO 5 % (21-46); MONOCYTES ABSOLUTE AUTO 0.43 K/mm3 (0.16-1.47); MONOCYTES PERCENT AUTO 6 % (4-13); Mean Corpuscular HGB 28.8 pg (26.0-34.0); Mean Corpuscular HGB Conc 30.1 g/dL (31.5-36.5); Mean Corpuscular Volume 96 fL (80-100); Mean Platelet Volume 11.6 fL (9.1-12.4); NEUTROPHILS ABSOLUTE AUTO 6.27 K/mm3 (1.96-9.15); NEUTROPHILS PERCENT AUTO 80 % (41-73); Platelet Count 254 K/mm3 (150-400); RDW Coefficient Variation 13.2 % (11.7-14.2); RDW Standard Deviation 46.9 fL (35.1-46.3); Red Blood Cell Count 3.79 M/mm3 (3.80-5.20); White Blood Cell Count 7.81 K/mm3 (4.00-11.30)
[2021-02-22 17:29] LABS: Alanine Aminotransfer (ALT/SGP 20 U/L (12-78); Albumin/Globulin Ratio 0.8 (0.8-1.8); Alk Phos 385 U/L (50-136); Anion Gap 6 mmol/L (6-16); Aspartate Aminotrans (AST/SGOT 13 U/L (12-37); Bilirubin, Total 0.4 mg/dL (0.1-1.0); Blood Urea Nitrogen 33 mg/dL (8-24); Bun/Creatinine Ratio 18.4 (12.0-20.0); CHOL/HDL RATIO 2.7; CO2, Blood 29 mmol/L (21-32); Calcium, Blood 8.1 mg/dL (8.5-10.1); Chloride, Blood 105 mmol/L (98-108); Cholesterol 105 mg/dL (50-200); Creatinine, Blood 1.79 mg/dL (0.40-1.00); Globulin, Blood 3.6 g/dL (2.2-4.0); Glomerular Filtration Rate 30 (60-); Glucose, Blood 112 mg/dL (70-99); HDL Cholesterol 39 mg/dL (>39); LDL/HDL RATIO 1.2; Low Density Lipoprotein Chol 46 mg/dL (0-110); Potassium, Blood 4.6 mmol/L (3.5-5.5); Sodium, Blood 140 mmol/L (136-145); Total Protein, Blood 6.6 g/dL (6.4-8.2); Triglycerides 99 mg/dL (30-160); Very Low Density Lipoprot Chol 19 mg/dL (6-32)
[2021-02-24 07:10] LABS: HIV SCREEN 4TH GENERATION WRFX Non Reactive (Non Reactive)
== END | disposition home or self-care (01) ==
LOC: LAB SHORT 15:30 → LAB 15:30
PROVIDERS: Physician Assistant
DX: Z00.00 Encounter for general adult medical examination without abnormal findings (principal); Z11.59 Encounter for screening for other viral diseases; I10 Essential (primary) hypertension; E78.5 Hyperlipidemia, unspecified
CPT/HCPCS: 80053; 80061; 85025; 86803; 87389

== ENCOUNTER → 2021-03-05 | Outpatient (CLI) | payer MEDICARE, OTHER ==
[2021-03-05 20:13] LABS: Albumin, Blood 3.1 g/dL (3.4-5.0); Anion Gap 8 mmol/L (6-16); Blood Urea Nitrogen 32 mg/dL (8-24); Bun/Creatinine Ratio 19.4 (12.0-20.0); CO2, Blood 30 mmol/L (21-32); Calcium, Blood 8.5 mg/dL (8.5-10.1); Chloride, Blood 103 mmol/L (98-108); Creatinine, Blood 1.65 mg/dL (0.40-1.00); Glomerular Filtration Rate 33 (60-); Glucose, Blood 177 mg/dL (70-99); Potassium, Blood 4.2 mmol/L (3.5-5.5); Sodium, Blood 141 mmol/L (136-145)
== END ==
LOC: LAB 18:15 → LAB SHORT 18:15
PROVIDERS: Internal Medicine Nephrology
DX: N18.30 Chronic kidney disease, stage 3 unspecified (principal)
CPT/HCPCS: 80069; 85018

== ENCOUNTER → 2021-04-19 | Outpatient (CLI) | payer MEDICARE, OTHER ==
[2021-04-19 17:31] LABS: Albumin, Blood 3.1 g/dL (3.4-5.0); Anion Gap 3 mmol/L (6-16); Blood Urea Nitrogen 35 mg/dL (8-24); CO2, Blood 32 mmol/L (21-32); Calcium, Blood 8.8 mg/dL (8.5-10.1); Chloride, Blood 102 mmol/L (98-108); Creatinine, Blood 1.52 mg/dL (0.40-1.00); Glomerular Filtration Rate 36 (60-); Glucose, Blood 149 mg/dL (70-99); Phosphorus, Blood 4.4 mg/dL (2.5-4.9); Potassium, Blood 4.5 mmol/L (3.5-5.5); Sodium, Blood 137 mmol/L (136-145)
== END | disposition home or self-care (01) ==
LOC: LAB SHORT 16:21
PROVIDERS: Internal Medicine Nephrology
DX: N18.2 Chronic kidney disease, stage 2 (mild) (principal); D63.1 Anemia in chronic kidney disease
CPT/HCPCS: 80069; 85018

== ENCOUNTER → 2021-06-04 | Outpatient (CLI) | payer MEDICARE, OTHER ==
[2021-06-04 18:24] LABS: Albumin, Blood 2.9 g/dL (3.4-5.0); Anion Gap 4 mmol/L (6-16); Blood Urea Nitrogen 32 mg/dL (8-24); Bun/Creatinine Ratio 23.4 (12.0-20.0); CO2, Blood 30 mmol/L (21-32); Calcium, Blood 8.5 mg/dL (8.5-10.1); Chloride, Blood 105 mmol/L (98-108); Creatinine, Blood 1.37 mg/dL (0.40-1.00); Glomerular Filtration Rate 40 (60-); Glucose, Blood 196 mg/dL (70-99); Phosphorus, Blood 4.6 mg/dL (2.5-4.9); Potassium, Blood 4.4 mmol/L (3.5-5.5); Sodium, Blood 139 mmol/L (136-145)
== END | disposition home or self-care (01) ==
LOC: LAB 14:17 → LAB SHORT 14:17
PROVIDERS: Internal Medicine Nephrology
DX: N18.2 Chronic kidney disease, stage 2 (mild) (principal); D63.1 Anemia in chronic kidney disease
CPT/HCPCS: 80069; 85018

== ENCOUNTER → 2021-11-12 | Outpatient (CLI) | payer MEDICARE, OTHER | END | disposition home or self-care (01) | LOC: LAB SHORT 13:29 → LAB 13:29 | DX: N39.0 Urinary tract infection, site not specified (principal) | CPT/HCPCS: 87077; 87086; 87186 ==

== ENCOUNTER → 2021-11-18 | Outpatient (CLI) | payer MEDICARE, OTHER ==
[2021-11-19 12:37] LABS: U Amphetamine Screen Not Detected; U Barbituate Screen Not Detected; U Benzodiazapine Screen Not Detected; U Buprenorphine Screen Not Detected; U Cannabinoids Screen Not Detected; U Cocaine Screen Not Detected; U Methadone Screen Not Detected; U Methamphetamine Screen Not Detected; U Opiates Screen Not Detected; U Oxycodone Screen DETECTED; U Phencyclidine Screen Not Detected; U Propoxyphene Screen Not Detected
== END | disposition home or self-care (01) ==
LOC: LAB SHORT 16:21 → LAB 16:21
PROVIDERS: Physician Assistant
DX: M54.9 Dorsalgia, unspecified (principal); Z79.891 Long term (current) use of opiate analgesic

== ENCOUNTER → 2022-01-21 | Outpatient (CLI) | payer MEDICARE, OTHER ==
[2022-01-21 17:42] LABS: Source, Urine Clean Catch
[2022-01-21 17:59] LABS: Appearance, Urine Clear (Clear); Bilirubin, Urine Neg (Neg); Blood, Urine 1+ (Neg); Color, Urine Yellow (P-Yellow); Glucose Qualitative, Urine Neg (Neg); Ketones, Urine Neg (Neg); Leukocyte Esterase, Urine 1+ (Neg); Nitrite, Urine Neg (Neg); Protein, Urine Neg (Neg); Specific Gravity, Urine 1.015 (1.003-1.022); Urobilinogen, Urine NORM (Normal)
[2022-01-21 18:20] LABS: Red Blood Cells, Urine 0-2 /hpf (0-2); Renal Epithelial Rare /hpf (0-Rare)
[2022-01-21 18:21] LABS: Bacteria Few /hpf; Hyaline Casts 0-2 /lpf (0-2); Squamous Epithelial Cells Few /hpf (Few)
== END | disposition home or self-care (01) ==
LOC: LAB 16:44 → LAB SHORT 16:44
PROVIDERS: Physician Assistant
DX: Z09 Encounter for follow-up examination after completed treatment for conditions other than malignant neoplasm (principal); Z87.440 Personal history of urinary (tract) infections
CPT/HCPCS: 81001; 87077; 87086; 87186

== ENCOUNTER → 2022-02-12 | Outpatient (CLI) | payer MEDICARE, OTHER ==
[2022-02-12 17:14] LABS: Hematocrit 33.3 % (33.0-51.0); Hemoglobin 10.4 g/dL (11.5-16.0); Mean Corpuscular HGB 28.3 pg (26.0-34.0); Mean Corpuscular HGB Conc 31.2 g/dL (31.5-36.5); Mean Corpuscular Volume 91 fL (80-100); Mean Platelet Volume 11.2 fL (9.1-12.4); Platelet Count 246 K/mm3 (150-400); RDW Coefficient Variation 13.3 % (11.7-14.2); RDW Standard Deviation 43.9 fL (35.1-46.3); Red Blood Cell Count 3.67 M/mm3 (3.80-5.20); White Blood Cell Count 5.52 K/mm3 (4.00-11.30)
[2022-02-12 17:44] LABS: Albumin, Blood 3.1 g/dL (3.4-5.0); Albumin/Globulin Ratio 0.9 (0.8-1.8); Bilirubin, Total 0.4 mg/dL (0.1-1.0); Calcium, Blood 8.2 mg/dL (8.5-10.1); Creatinine, Blood 1.35 mg/dL (0.40-1.00); Globulin, Blood 3.6 g/dL (2.2-4.0); Potassium, Blood 4.1 mmol/L (3.5-5.5); Total Protein, Blood 6.7 g/dL (6.4-8.2)
== END | disposition home or self-care (01) ==
LOC: LAB 16:30 → LAB SHORT 16:30
PROVIDERS: Physician Assistant
DX: I50.9 Heart failure, unspecified (principal); N18.30 Chronic kidney disease, stage 3 unspecified; I89.0 Lymphedema, not elsewhere classified
CPT/HCPCS: 80053; 85027

== ENCOUNTER 2022-02-14 01:07 | Day surgery (SDC) | payer MEDICARE, OTHER | END 2022-02-14 23:12 | disposition home or self-care (01) | LOC: WOUND 01:07 | DX: E10.622 Type 1 diabetes mellitus with other skin ulcer (principal); L97.322 Non-pressure chronic ulcer of left ankle with fat layer exposed; F17.200 Nicotine dependence, unspecified, uncomplicated; Z88.0 Allergy status to penicillin; E10.621 Type 1 diabetes mellitus with foot ulcer; L97.321 Non-pressure chronic ulcer of left ankle limited to breakdown of skin; L97.412 Non-pressure chronic ulcer of right heel and midfoot with fat layer exposed; L97.512 Non-pressure chronic ulcer of other part of right foot with fat layer exposed; L03.115 Cellulitis of right lower limb; I89.0 Lymphedema, not elsewhere classified; E10.42 Type 1 diabetes mellitus with diabetic polyneuropathy | CPT/HCPCS: G0463 ==

== ENCOUNTER 2022-02-17 10:56 | Day surgery (SDC) | payer MEDICARE, OTHER | END 2022-02-17 23:09 | disposition home or self-care (01) | LOC: WOUND 10:56 | DX: E10.42 Type 1 diabetes mellitus with diabetic polyneuropathy (principal); I83.228 Varicose veins of left lower extremity with both ulcer of other part of lower extremity and inflammation; L97.321 Non-pressure chronic ulcer of left ankle limited to breakdown of skin; L03.116 Cellulitis of left lower limb; E10.59 Type 1 diabetes mellitus with other circulatory complications; E87.6 Hypokalemia; I89.0 Lymphedema, not elsewhere classified; L97.412 Non-pressure chronic ulcer of right heel and midfoot with fat layer exposed; L97.512 Non-pressure chronic ulcer of other part of right foot with fat layer exposed; I79.8 Other disorders of arteries, arterioles and capillaries in diseases classified elsewhere ==

== ENCOUNTER 2022-02-24 02:02 | Day surgery (SDC) | payer MEDICARE, OTHER | END 2022-02-24 23:24 | disposition home or self-care (01) | LOC: WOUND 02:02 | DX: L03.116 Cellulitis of left lower limb (principal); L97.322 Non-pressure chronic ulcer of left ankle with fat layer exposed; L97.412 Non-pressure chronic ulcer of right heel and midfoot with fat layer exposed; L97.512 Non-pressure chronic ulcer of other part of right foot with fat layer exposed; I83.228 Varicose veins of left lower extremity with both ulcer of other part of lower extremity and inflammation; E10.42 Type 1 diabetes mellitus with diabetic polyneuropathy; E10.622 Type 1 diabetes mellitus with other skin ulcer; E10.22 Type 1 diabetes mellitus with diabetic chronic kidney disease; E10.40 Type 1 diabetes mellitus with diabetic neuropathy, unspecified | CPT/HCPCS: A9270 ==

== ENCOUNTER 2022-03-10 01:18 | Day surgery (SDC) | payer MEDICARE, OTHER | END 2022-03-10 22:56 | disposition home or self-care (01) | LOC: WOUND 01:18 | DX: E10.622 Type 1 diabetes mellitus with other skin ulcer (principal); L97.322 Non-pressure chronic ulcer of left ankle with fat layer exposed; L03.116 Cellulitis of left lower limb; L97.512 Non-pressure chronic ulcer of other part of right foot with fat layer exposed; L97.412 Non-pressure chronic ulcer of right heel and midfoot with fat layer exposed; I83.228 Varicose veins of left lower extremity with both ulcer of other part of lower extremity and inflammation; L03.115 Cellulitis of right lower limb; R77.0 Abnormality of albumin; E10.621 Type 1 diabetes mellitus with foot ulcer; E10.22 Type 1 diabetes mellitus with diabetic chronic kidney disease; N18.30 Chronic kidney disease, stage 3 unspecified; E11.40 Type 2 diabetes mellitus with diabetic neuropathy, unspecified ==

== ENCOUNTER 2022-03-17 01:50 | Day surgery (SDC) | payer MEDICARE, OTHER | END 2022-03-17 23:03 | disposition home or self-care (01) | LOC: WOUND 01:50 | DX: E10.621 Type 1 diabetes mellitus with foot ulcer (principal); E10.622 Type 1 diabetes mellitus with other skin ulcer; I83.228 Varicose veins of left lower extremity with both ulcer of other part of lower extremity and inflammation; L97.222 Non-pressure chronic ulcer of left calf with fat layer exposed; L97.512 Non-pressure chronic ulcer of other part of right foot with fat layer exposed; L97.412 Non-pressure chronic ulcer of right heel and midfoot with fat layer exposed; S91.302A Unspecified open wound, left foot, initial encounter; S91.002D Unspecified open wound, left ankle, subsequent encounter; S91.302D Unspecified open wound, left foot, subsequent encounter; S91.104D Unspecified open wound of right lesser toe(s) without damage to nail, subsequent encounter; L03.115 Cellulitis of right lower limb; E10.42 Type 1 diabetes mellitus with diabetic polyneuropathy; I89.0 Lymphedema, not elsewhere classified; R77.0 Abnormality of albumin | CPT/HCPCS: A9270; G0463 ==

== ENCOUNTER 2022-03-24 01:25 | Day surgery (SDC) | payer MEDICARE, OTHER | END 2022-03-24 22:50 | disposition home or self-care (01) | LOC: WOUND 01:25 | DX: E10.621 Type 1 diabetes mellitus with foot ulcer (principal); L03.116 Cellulitis of left lower limb; I87.2 Venous insufficiency (chronic) (peripheral); L97.522 Non-pressure chronic ulcer of other part of left foot with fat layer exposed; L97.512 Non-pressure chronic ulcer of other part of right foot with fat layer exposed; L97.222 Non-pressure chronic ulcer of left calf with fat layer exposed; E10.42 Type 1 diabetes mellitus with diabetic polyneuropathy; N18.30 Chronic kidney disease, stage 3 unspecified; E10.22 Type 1 diabetes mellitus with diabetic chronic kidney disease; E10.622 Type 1 diabetes mellitus with other skin ulcer | CPT/HCPCS: A9270 ==

== ENCOUNTER 2022-03-31 02:01 | Day surgery (SDC) | payer MEDICARE, OTHER | END 2022-03-31 23:05 | disposition home or self-care (01) | LOC: WOUND 02:01 | DX: E10.621 Type 1 diabetes mellitus with foot ulcer (principal); L97.412 Non-pressure chronic ulcer of right heel and midfoot with fat layer exposed; L97.512 Non-pressure chronic ulcer of other part of right foot with fat layer exposed; S91.302D Unspecified open wound, left foot, subsequent encounter; S91.002D Unspecified open wound, left ankle, subsequent encounter; I83.228 Varicose veins of left lower extremity with both ulcer of other part of lower extremity and inflammation; S91.104D Unspecified open wound of right lesser toe(s) without damage to nail, subsequent encounter; L03.115 Cellulitis of right lower limb; E10.42 Type 1 diabetes mellitus with diabetic polyneuropathy; I89.0 Lymphedema, not elsewhere classified; R77.0 Abnormality of albumin | CPT/HCPCS: A9270 ==

== ENCOUNTER 2022-04-21 03:10 | Day surgery (SDC) | payer MEDICARE, OTHER | END 2022-04-21 23:07 | disposition home or self-care (01) | LOC: WOUND 03:10 | DX: L97.412 Non-pressure chronic ulcer of right heel and midfoot with fat layer exposed (principal); L97.512 Non-pressure chronic ulcer of other part of right foot with fat layer exposed; S91.302D Unspecified open wound, left foot, subsequent encounter; S91.002D Unspecified open wound, left ankle, subsequent encounter; I83.228 Varicose veins of left lower extremity with both ulcer of other part of lower extremity and inflammation; S91.104D Unspecified open wound of right lesser toe(s) without damage to nail, subsequent encounter; L03.115 Cellulitis of right lower limb; E10.42 Type 1 diabetes mellitus with diabetic polyneuropathy; I89.0 Lymphedema, not elsewhere classified; R77.0 Abnormality of albumin; E10.22 Type 1 diabetes mellitus with diabetic chronic kidney disease; N18.30 Chronic kidney disease, stage 3 unspecified; E10.40 Type 1 diabetes mellitus with diabetic neuropathy, unspecified; X58.XXXD Exposure to other specified factors, subsequent encounter | CPT/HCPCS: A9270 ==

== ENCOUNTER 2022-04-28 01:14 | Day surgery (SDC) | payer MEDICARE, OTHER | END 2022-04-28 22:52 | disposition home or self-care (01) | LOC: WOUND 01:14 | DX: E10.622 Type 1 diabetes mellitus with other skin ulcer (principal); L97.412 Non-pressure chronic ulcer of right heel and midfoot with fat layer exposed; L97.512 Non-pressure chronic ulcer of other part of right foot with fat layer exposed; I83.228 Varicose veins of left lower extremity with both ulcer of other part of lower extremity and inflammation; L03.115 Cellulitis of right lower limb; E10.42 Type 1 diabetes mellitus with diabetic polyneuropathy; I89.0 Lymphedema, not elsewhere classified; R77.0 Abnormality of albumin ==

== ENCOUNTER → 2022-05-05 | Outpatient (CLI) | payer MEDICARE, OTHER ==
[2022-05-05 17:57] LABS: U Amphetamine Screen Not Detected; U Barbituate Screen Not Detected; U Benzodiazapine Screen DETECTED; U Buprenorphine Screen Not Detected; U Cannabinoids Screen Not Detected; U Cocaine Screen Not Detected; U Methadone Screen Not Detected; U Methamphetamine Screen Not Detected; U Opiates Screen DETECTED; U Oxycodone Screen Not Detected; U Phencyclidine Screen Not Detected; U Propoxyphene Screen Not Detected
== END | disposition home or self-care (01) ==
LOC: LAB SHORT 16:00
PROVIDERS: Physician Assistant
DX: N39.0 Urinary tract infection, site not specified (principal); Z79.899 Other long term (current) drug therapy
CPT/HCPCS: 87077; 87086; 87186

== ENCOUNTER 2022-05-12 00:31 | Day surgery (SDC) | payer MEDICARE, OTHER | END 2022-05-12 23:11 | disposition home or self-care (01) | LOC: WOUND 00:31 | DX: E10.621 Type 1 diabetes mellitus with foot ulcer (principal); L97.412 Non-pressure chronic ulcer of right heel and midfoot with fat layer exposed; L97.512 Non-pressure chronic ulcer of other part of right foot with fat layer exposed; S91.302D Unspecified open wound, left foot, subsequent encounter; S91.002D Unspecified open wound, left ankle, subsequent encounter; I83.228 Varicose veins of left lower extremity with both ulcer of other part of lower extremity and inflammation; L03.115 Cellulitis of right lower limb; E10.42 Type 1 diabetes mellitus with diabetic polyneuropathy; I89.0 Lymphedema, not elsewhere classified; R77.0 Abnormality of albumin | CPT/HCPCS: A9270 ==

== ENCOUNTER 2022-06-02 01:03 | Day surgery (SDC) | payer MEDICARE, OTHER | END 2022-06-02 23:37 | disposition short-term general hospital (02) | LOC: WOUND 01:03 | DX: I83.228 Varicose veins of left lower extremity with both ulcer of other part of lower extremity and inflammation (principal); L97.412 Non-pressure chronic ulcer of right heel and midfoot with fat layer exposed; L97.512 Non-pressure chronic ulcer of other part of right foot with fat layer exposed; S91.302D Unspecified open wound, left foot, subsequent encounter; S91.002D Unspecified open wound, left ankle, subsequent encounter; S91.104D Unspecified open wound of right lesser toe(s) without damage to nail, subsequent encounter; L03.115 Cellulitis of right lower limb; E10.42 Type 1 diabetes mellitus with diabetic polyneuropathy; E10.622 Type 1 diabetes mellitus with other skin ulcer; L97.222 Non-pressure chronic ulcer of left calf with fat layer exposed; I89.0 Lymphedema, not elsewhere classified; R77.0 Abnormality of albumin | CPT/HCPCS: G0463 ==

== ENCOUNTER 2022-06-09 00:58 | Day surgery (SDC) | payer MEDICARE, OTHER | END 2022-06-09 22:49 | disposition home or self-care (01) | LOC: WOUND 00:58 | DX: E10.622 Type 1 diabetes mellitus with other skin ulcer (principal); L97.222 Non-pressure chronic ulcer of left calf with fat layer exposed; L97.822 Non-pressure chronic ulcer of other part of left lower leg with fat layer exposed; L97.412 Non-pressure chronic ulcer of right heel and midfoot with fat layer exposed; L97.512 Non-pressure chronic ulcer of other part of right foot with fat layer exposed; S91.302D Unspecified open wound, left foot, subsequent encounter; S91.002D Unspecified open wound, left ankle, subsequent encounter; S91.104D Unspecified open wound of right lesser toe(s) without damage to nail, subsequent encounter; I83.228 Varicose veins of left lower extremity with both ulcer of other part of lower extremity and inflammation; I89.0 Lymphedema, not elsewhere classified; L03.115 Cellulitis of right lower limb; E10.42 Type 1 diabetes mellitus with diabetic polyneuropathy; R77.0 Abnormality of albumin; N18.30 Chronic kidney disease, stage 3 unspecified; E10.22 Type 1 diabetes mellitus with diabetic chronic kidney disease | CPT/HCPCS: A9270; G0463 ==

== ENCOUNTER 2022-06-23 00:27 | Day surgery (SDC) | payer MEDICARE, OTHER | END 2022-06-23 23:12 | disposition home or self-care (01) | LOC: WOUND 00:27 | DX: E10.622 Type 1 diabetes mellitus with other skin ulcer (principal); L97.222 Non-pressure chronic ulcer of left calf with fat layer exposed; I83.228 Varicose veins of left lower extremity with both ulcer of other part of lower extremity and inflammation; L97.822 Non-pressure chronic ulcer of other part of left lower leg with fat layer exposed; L97.812 Non-pressure chronic ulcer of other part of right lower leg with fat layer exposed; S91.302D Unspecified open wound, left foot, subsequent encounter; S91.002D Unspecified open wound, left ankle, subsequent encounter; S91.104D Unspecified open wound of right lesser toe(s) without damage to nail, subsequent encounter; X58.XXXD Exposure to other specified factors, subsequent encounter; L03.115 Cellulitis of right lower limb; E10.42 Type 1 diabetes mellitus with diabetic polyneuropathy; I89.0 Lymphedema, not elsewhere classified; R77.0 Abnormality of albumin; E10.22 Type 1 diabetes mellitus with diabetic chronic kidney disease; N18.30 Chronic kidney disease, stage 3 unspecified | CPT/HCPCS: A9270 ==

== ENCOUNTER 2022-06-30 00:18 | Day surgery (SDC) | payer MEDICARE, OTHER | END 2022-06-30 22:40 | disposition home or self-care (01) | LOC: WOUND 00:18 | DX: E10.621 Type 1 diabetes mellitus with foot ulcer (principal); L97.412 Non-pressure chronic ulcer of right heel and midfoot with fat layer exposed; L97.512 Non-pressure chronic ulcer of other part of right foot with fat layer exposed; S91.302D Unspecified open wound, left foot, subsequent encounter; S91.002D Unspecified open wound, left ankle, subsequent encounter; I83.228 Varicose veins of left lower extremity with both ulcer of other part of lower extremity and inflammation; S91.104D Unspecified open wound of right lesser toe(s) without damage to nail, subsequent encounter; L03.115 Cellulitis of right lower limb; E10.42 Type 1 diabetes mellitus with diabetic polyneuropathy; I89.0 Lymphedema, not elsewhere classified; R77.0 Abnormality of albumin ==

== ENCOUNTER 2022-07-07 00:50 | Day surgery (SDC) | payer MEDICARE, OTHER | END 2022-07-07 22:42 | disposition home or self-care (01) | LOC: WOUND 00:50 | DX: E10.622 Type 1 diabetes mellitus with other skin ulcer (principal); L97.222 Non-pressure chronic ulcer of left calf with fat layer exposed; I89.0 Lymphedema, not elsewhere classified; I87.2 Venous insufficiency (chronic) (peripheral); L97.812 Non-pressure chronic ulcer of other part of right lower leg with fat layer exposed; L97.822 Non-pressure chronic ulcer of other part of left lower leg with fat layer exposed; L97.412 Non-pressure chronic ulcer of right heel and midfoot with fat layer exposed; L97.512 Non-pressure chronic ulcer of other part of right foot with fat layer exposed; S91.302D Unspecified open wound, left foot, subsequent encounter; S91.002D Unspecified open wound, left ankle, subsequent encounter; I83.228 Varicose veins of left lower extremity with both ulcer of other part of lower extremity and inflammation; S91.104D Unspecified open wound of right lesser toe(s) without damage to nail, subsequent encounter; L03.115 Cellulitis of right lower limb; E10.42 Type 1 diabetes mellitus with diabetic polyneuropathy; Z72.0 Tobacco use; N18.32 Chronic kidney disease, stage 3b; E10.22 Type 1 diabetes mellitus with diabetic chronic kidney disease | CPT/HCPCS: 99406; A9270 ==

== ENCOUNTER 2022-07-14 01:08 | Day surgery (SDC) | payer MEDICARE, OTHER | END 2022-07-14 22:51 | disposition home or self-care (01) | LOC: WOUND 01:08 | DX: I89.0 Lymphedema, not elsewhere classified (principal); E10.22 Type 1 diabetes mellitus with diabetic chronic kidney disease; N18.30 Chronic kidney disease, stage 3 unspecified; E10.42 Type 1 diabetes mellitus with diabetic polyneuropathy; Z72.0 Tobacco use | CPT/HCPCS: A9270 ==

== ENCOUNTER 2022-07-21 01:10 | Day surgery (SDC) | payer MEDICARE, OTHER | END 2022-07-21 22:37 | disposition home or self-care (01) | LOC: WOUND 01:10 | DX: I83.228 Varicose veins of left lower extremity with both ulcer of other part of lower extremity and inflammation (principal); L97.812 Non-pressure chronic ulcer of other part of right lower leg with fat layer exposed; L97.822 Non-pressure chronic ulcer of other part of left lower leg with fat layer exposed; L97.412 Non-pressure chronic ulcer of right heel and midfoot with fat layer exposed; L97.512 Non-pressure chronic ulcer of other part of right foot with fat layer exposed; S91.302D Unspecified open wound, left foot, subsequent encounter; S91.002D Unspecified open wound, left ankle, subsequent encounter; S91.104D Unspecified open wound of right lesser toe(s) without damage to nail, subsequent encounter; L03.115 Cellulitis of right lower limb; E10.42 Type 1 diabetes mellitus with diabetic polyneuropathy; I89.0 Lymphedema, not elsewhere classified; R77.0 Abnormality of albumin; Z72.0 Tobacco use; X58.XXXD Exposure to other specified factors, subsequent encounter | CPT/HCPCS: 99406; A9270 ==

== ENCOUNTER 2022-07-28 00:20 | Day surgery (SDC) | payer MEDICARE, OTHER | END 2022-07-28 22:54 | disposition home or self-care (01) | LOC: WOUND 00:20 | DX: I83.228 Varicose veins of left lower extremity with both ulcer of other part of lower extremity and inflammation (principal); L97.812 Non-pressure chronic ulcer of other part of right lower leg with fat layer exposed; L97.822 Non-pressure chronic ulcer of other part of left lower leg with fat layer exposed; L97.412 Non-pressure chronic ulcer of right heel and midfoot with fat layer exposed; L97.512 Non-pressure chronic ulcer of other part of right foot with fat layer exposed; S91.302D Unspecified open wound, left foot, subsequent encounter; S91.002D Unspecified open wound, left ankle, subsequent encounter; S91.104D Unspecified open wound of right lesser toe(s) without damage to nail, subsequent encounter; X58.XXXD Exposure to other specified factors, subsequent encounter; L03.115 Cellulitis of right lower limb; E10.42 Type 1 diabetes mellitus with diabetic polyneuropathy; I89.0 Lymphedema, not elsewhere classified; R77.0 Abnormality of albumin; Z72.0 Tobacco use ==

== ENCOUNTER 2022-08-04 08:00 | Day surgery (SDC) | payer MEDICARE, OTHER | END 2022-08-04 23:59 | disposition home or self-care (01) | LOC: WOUND 08:00 | DX: E10.622 Type 1 diabetes mellitus with other skin ulcer (principal); E10.22 Type 1 diabetes mellitus with diabetic chronic kidney disease; N18.30 Chronic kidney disease, stage 3 unspecified; I89.0 Lymphedema, not elsewhere classified; L97.329 Non-pressure chronic ulcer of left ankle with unspecified severity; L89.613 Pressure ulcer of right heel, stage 3; L97.812 Non-pressure chronic ulcer of other part of right lower leg with fat layer exposed; L97.822 Non-pressure chronic ulcer of other part of left lower leg with fat layer exposed; L97.412 Non-pressure chronic ulcer of right heel and midfoot with fat layer exposed; L97.512 Non-pressure chronic ulcer of other part of right foot with fat layer exposed; L03.115 Cellulitis of right lower limb; E10.42 Type 1 diabetes mellitus with diabetic polyneuropathy; E10.621 Type 1 diabetes mellitus with foot ulcer | CPT/HCPCS: 99406; A9270; G0463 ==

== ENCOUNTER 2022-08-11 02:14 | Day surgery (SDC) | payer MEDICARE, OTHER | END 2022-08-11 22:50 | disposition home or self-care (01) | LOC: WOUND 02:14 | DX: L89.613 Pressure ulcer of right heel, stage 3 (principal); L97.822 Non-pressure chronic ulcer of other part of left lower leg with fat layer exposed; I89.0 Lymphedema, not elsewhere classified; L97.812 Non-pressure chronic ulcer of other part of right lower leg with fat layer exposed; L97.412 Non-pressure chronic ulcer of right heel and midfoot with fat layer exposed; L97.512 Non-pressure chronic ulcer of other part of right foot with fat layer exposed; S91.302D Unspecified open wound, left foot, subsequent encounter; S91.002D Unspecified open wound, left ankle, subsequent encounter; I83.228 Varicose veins of left lower extremity with both ulcer of other part of lower extremity and inflammation; E10.42 Type 1 diabetes mellitus with diabetic polyneuropathy; E10.22 Type 1 diabetes mellitus with diabetic chronic kidney disease; N18.30 Chronic kidney disease, stage 3 unspecified; E10.621 Type 1 diabetes mellitus with foot ulcer; E10.622 Type 1 diabetes mellitus with other skin ulcer | CPT/HCPCS: A9270 ==

== ENCOUNTER 2022-08-25 01:32 | Day surgery (SDC) | payer MEDICARE, OTHER | END 2022-08-25 22:52 | disposition home or self-care (01) | LOC: WOUND 01:32 | DX: I89.0 Lymphedema, not elsewhere classified (principal); L89.899 Pressure ulcer of other site, unspecified stage; I83.228 Varicose veins of left lower extremity with both ulcer of other part of lower extremity and inflammation; L97.822 Non-pressure chronic ulcer of other part of left lower leg with fat layer exposed; L89.893 Pressure ulcer of other site, stage 3; L97.812 Non-pressure chronic ulcer of other part of right lower leg with fat layer exposed; L97.412 Non-pressure chronic ulcer of right heel and midfoot with fat layer exposed; L97.512 Non-pressure chronic ulcer of other part of right foot with fat layer exposed; S91.302D Unspecified open wound, left foot, subsequent encounter; S91.002D Unspecified open wound, left ankle, subsequent encounter; S91.104D Unspecified open wound of right lesser toe(s) without damage to nail, subsequent encounter; L89.613 Pressure ulcer of right heel, stage 3; L03.115 Cellulitis of right lower limb; E10.42 Type 1 diabetes mellitus with diabetic polyneuropathy; X58.XXXD Exposure to other specified factors, subsequent encounter | CPT/HCPCS: A9270 ==

== ENCOUNTER 2022-08-29 02:43 | Day surgery (SDC) | payer MEDICARE, OTHER | END 2022-08-31 22:51 | disposition home or self-care (01) | LOC: WOUND 02:43 | DX: L97.822 Non-pressure chronic ulcer of other part of left lower leg with fat layer exposed (principal); L89.613 Pressure ulcer of right heel, stage 3; L89.899 Pressure ulcer of other site, unspecified stage; L97.812 Non-pressure chronic ulcer of other part of right lower leg with fat layer exposed; L97.412 Non-pressure chronic ulcer of right heel and midfoot with fat layer exposed; L97.512 Non-pressure chronic ulcer of other part of right foot with fat layer exposed; I89.0 Lymphedema, not elsewhere classified; S91.302D Unspecified open wound, left foot, subsequent encounter; S91.002D Unspecified open wound, left ankle, subsequent encounter; S91.104D Unspecified open wound of right lesser toe(s) without damage to nail, subsequent encounter; X58.XXXD Exposure to other specified factors, subsequent encounter; I83.228 Varicose veins of left lower extremity with both ulcer of other part of lower extremity and inflammation; L03.115 Cellulitis of right lower limb; Z72.0 Tobacco use | CPT/HCPCS: 87070; 87075; 87076; 87077; 87185; 87186; 87205; A9270; G0463 ==

== ENCOUNTER → 2022-08-29 | Outpatient (CLI) | payer MEDICARE, OTHER | END | disposition home or self-care (01) | LOC: LAB 15:41 → LAB SHORT 15:41 | DX: N39.0 Urinary tract infection, site not specified (principal) | CPT/HCPCS: 87077; 87086; 87186 ==

== ENCOUNTER 2022-09-08 03:56 | Day surgery (SDC) | payer MEDICARE, OTHER | END 2022-09-08 22:55 | disposition home or self-care (01) | LOC: WOUND 03:56 | DX: E11.621 Type 2 diabetes mellitus with foot ulcer (principal); L97.525 Non-pressure chronic ulcer of other part of left foot with muscle involvement without evidence of necrosis; L89.899 Pressure ulcer of other site, unspecified stage; L89.893 Pressure ulcer of other site, stage 3; L97.822 Non-pressure chronic ulcer of other part of left lower leg with fat layer exposed; L97.812 Non-pressure chronic ulcer of other part of right lower leg with fat layer exposed; L97.412 Non-pressure chronic ulcer of right heel and midfoot with fat layer exposed; L97.512 Non-pressure chronic ulcer of other part of right foot with fat layer exposed; S91.302D Unspecified open wound, left foot, subsequent encounter; S91.002D Unspecified open wound, left ankle, subsequent encounter; I83.228 Varicose veins of left lower extremity with both ulcer of other part of lower extremity and inflammation; S91.104D Unspecified open wound of right lesser toe(s) without damage to nail, subsequent encounter; L89.613 Pressure ulcer of right heel, stage 3; L03.115 Cellulitis of right lower limb; I89.0 Lymphedema, not elsewhere classified; R77.0 Abnormality of albumin; Z72.0 Tobacco use; X58.XXXD Exposure to other specified factors, subsequent encounter ==

== ENCOUNTER 2022-09-15 03:12 | Day surgery (SDC) | payer MEDICARE, OTHER | END 2022-09-15 23:00 | disposition home or self-care (01) | LOC: WOUND 03:12 | DX: E10.621 Type 1 diabetes mellitus with foot ulcer (principal); I89.0 Lymphedema, not elsewhere classified; N18.30 Chronic kidney disease, stage 3 unspecified; E10.22 Type 1 diabetes mellitus with diabetic chronic kidney disease; L89.613 Pressure ulcer of right heel, stage 3; E10.622 Type 1 diabetes mellitus with other skin ulcer; L97.822 Non-pressure chronic ulcer of other part of left lower leg with fat layer exposed; L97.812 Non-pressure chronic ulcer of other part of right lower leg with fat layer exposed; L97.412 Non-pressure chronic ulcer of right heel and midfoot with fat layer exposed; L97.512 Non-pressure chronic ulcer of other part of right foot with fat layer exposed; S91.302D Unspecified open wound, left foot, subsequent encounter; S91.002D Unspecified open wound, left ankle, subsequent encounter; I83.228 Varicose veins of left lower extremity with both ulcer of other part of lower extremity and inflammation; S91.104D Unspecified open wound of right lesser toe(s) without damage to nail, subsequent encounter; L03.115 Cellulitis of right lower limb; E10.42 Type 1 diabetes mellitus with diabetic polyneuropathy; R77.0 Abnormality of albumin; Z72.0 Tobacco use ==

== ENCOUNTER 2022-09-19 01:10 | Day surgery (SDC) | payer MEDICARE, OTHER | END 2022-09-19 22:55 | disposition home or self-care (01) | LOC: WOUND 01:10 | DX: I83.228 Varicose veins of left lower extremity with both ulcer of other part of lower extremity and inflammation (principal); L97.812 Non-pressure chronic ulcer of other part of right lower leg with fat layer exposed; L97.822 Non-pressure chronic ulcer of other part of left lower leg with fat layer exposed; L97.412 Non-pressure chronic ulcer of right heel and midfoot with fat layer exposed; L97.512 Non-pressure chronic ulcer of other part of right foot with fat layer exposed; S91.302D Unspecified open wound, left foot, subsequent encounter; S91.002D Unspecified open wound, left ankle, subsequent encounter; S91.104D Unspecified open wound of right lesser toe(s) without damage to nail, subsequent encounter; L89.613 Pressure ulcer of right heel, stage 3; L03.115 Cellulitis of right lower limb; E10.42 Type 1 diabetes mellitus with diabetic polyneuropathy; E10.622 Type 1 diabetes mellitus with other skin ulcer; E10.621 Type 1 diabetes mellitus with foot ulcer; I89.0 Lymphedema, not elsewhere classified; R77.0 Abnormality of albumin; Z72.0 Tobacco use ==

== ENCOUNTER → 2022-09-19 | Outpatient (CLI) | payer MEDICARE, OTHER | LOC: LAB 17:40 → LAB SHORT 17:40 | DX: N39.0 Urinary tract infection, site not specified (principal) | CPT/HCPCS: 87077; 87086; 87186 ==

== ENCOUNTER 2022-09-26 02:16 | Day surgery (SDC) | payer MEDICARE, OTHER | END 2022-09-26 23:03 | disposition home or self-care (01) | LOC: WOUND 02:16 | DX: I83.228 Varicose veins of left lower extremity with both ulcer of other part of lower extremity and inflammation (principal); L97.812 Non-pressure chronic ulcer of other part of right lower leg with fat layer exposed; L97.822 Non-pressure chronic ulcer of other part of left lower leg with fat layer exposed; L97.412 Non-pressure chronic ulcer of right heel and midfoot with fat layer exposed; L97.512 Non-pressure chronic ulcer of other part of right foot with fat layer exposed; S91.302D Unspecified open wound, left foot, subsequent encounter; S91.002D Unspecified open wound, left ankle, subsequent encounter; S91.104D Unspecified open wound of right lesser toe(s) without damage to nail, subsequent encounter; L89.613 Pressure ulcer of right heel, stage 3; L03.115 Cellulitis of right lower limb; E10.42 Type 1 diabetes mellitus with diabetic polyneuropathy; I89.0 Lymphedema, not elsewhere classified; R77.0 Abnormality of albumin; X58.XXXD Exposure to other specified factors, subsequent encounter; Z72.0 Tobacco use | CPT/HCPCS: A9270 ==

== ENCOUNTER 2022-10-10 01:41 | Day surgery (SDC) | payer MEDICARE, OTHER | END 2022-10-10 22:38 | disposition home or self-care (01) | LOC: WOUND 01:41 | DX: E10.621 Type 1 diabetes mellitus with foot ulcer (principal); I83.228 Varicose veins of left lower extremity with both ulcer of other part of lower extremity and inflammation; L97.525 Non-pressure chronic ulcer of other part of left foot with muscle involvement without evidence of necrosis; L89.613 Pressure ulcer of right heel, stage 3; L97.412 Non-pressure chronic ulcer of right heel and midfoot with fat layer exposed; L97.812 Non-pressure chronic ulcer of other part of right lower leg with fat layer exposed; L97.822 Non-pressure chronic ulcer of other part of left lower leg with fat layer exposed; L97.512 Non-pressure chronic ulcer of other part of right foot with fat layer exposed; S91.302D Unspecified open wound, left foot, subsequent encounter; S91.002D Unspecified open wound, left ankle, subsequent encounter; S91.104D Unspecified open wound of right lesser toe(s) without damage to nail, subsequent encounter; L03.115 Cellulitis of right lower limb; E10.42 Type 1 diabetes mellitus with diabetic polyneuropathy; I89.0 Lymphedema, not elsewhere classified; X58.XXXD Exposure to other specified factors, subsequent encounter; R30.0 Dysuria | CPT/HCPCS: 81001; 87077; 87086; 87186; 99406; A9270 ==

== ENCOUNTER 2022-10-17 04:04 | Day surgery (SDC) | payer MEDICARE, OTHER | END 2022-10-17 22:33 | disposition home or self-care (01) | LOC: WOUND 04:04 | DX: E10.621 Type 1 diabetes mellitus with foot ulcer (principal); I83.228 Varicose veins of left lower extremity with both ulcer of other part of lower extremity and inflammation; L97.522 Non-pressure chronic ulcer of other part of left foot with fat layer exposed; L89.613 Pressure ulcer of right heel, stage 3; L97.812 Non-pressure chronic ulcer of other part of right lower leg with fat layer exposed; L97.822 Non-pressure chronic ulcer of other part of left lower leg with fat layer exposed; L97.412 Non-pressure chronic ulcer of right heel and midfoot with fat layer exposed; L97.512 Non-pressure chronic ulcer of other part of right foot with fat layer exposed; S91.302D Unspecified open wound, left foot, subsequent encounter; S91.002D Unspecified open wound, left ankle, subsequent encounter; S91.104D Unspecified open wound of right lesser toe(s) without damage to nail, subsequent encounter; L03.115 Cellulitis of right lower limb; E10.42 Type 1 diabetes mellitus with diabetic polyneuropathy; I89.0 Lymphedema, not elsewhere classified; R77.0 Abnormality of albumin; Z72.0 Tobacco use; X58.XXXD Exposure to other specified factors, subsequent encounter | CPT/HCPCS: 99406; A9270 ==

== ENCOUNTER → 2022-10-17 | Outpatient (CLI) | payer MEDICARE, OTHER | END | disposition home or self-care (01) | LOC: LAB SHORT 13:18 → PLD 13:18 → LAB 13:18 | DX: N93.8 Other specified abnormal uterine and vaginal bleeding (principal) | CPT/HCPCS: 88305 ==

== ENCOUNTER 2022-10-24 05:53 | Day surgery (SDC) | payer MEDICARE, OTHER | END 2022-10-24 22:34 | disposition home or self-care (01) | LOC: WOUND 05:53 | DX: E10.621 Type 1 diabetes mellitus with foot ulcer (principal); L97.522 Non-pressure chronic ulcer of other part of left foot with fat layer exposed; L97.412 Non-pressure chronic ulcer of right heel and midfoot with fat layer exposed; L97.512 Non-pressure chronic ulcer of other part of right foot with fat layer exposed; S91.302D Unspecified open wound, left foot, subsequent encounter; S91.002D Unspecified open wound, left ankle, subsequent encounter; I83.228 Varicose veins of left lower extremity with both ulcer of other part of lower extremity and inflammation; S91.104D Unspecified open wound of right lesser toe(s) without damage to nail, subsequent encounter; L89.613 Pressure ulcer of right heel, stage 3; L03.115 Cellulitis of right lower limb; E10.42 Type 1 diabetes mellitus with diabetic polyneuropathy; I89.0 Lymphedema, not elsewhere classified; R77.0 Abnormality of albumin; Z72.0 Tobacco use; E10.622 Type 1 diabetes mellitus with other skin ulcer; L97.812 Non-pressure chronic ulcer of other part of right lower leg with fat layer exposed | CPT/HCPCS: 99406; G0463 ==

== ENCOUNTER 2022-10-31 03:18 | Day surgery (SDC) | payer MEDICARE, OTHER ==
[~2022-10-31 03:18] MED LIST changes: -Bumetanide2 MG PO; -DOCUZEN 8.6-501 EACH PO; +K-Dur 20 meq T20 MEQ PO; -LISI10 PO; -METO5 PO; -METO5A PO; -MIRALAX17 GM PO; -OXYC10ER PO; -POTCHL20ER PO; -SPIR25 PO
== END 2022-10-31 22:46 | disposition home or self-care (01) ==
LOC: WOUND 03:18
DX: E10.621 Type 1 diabetes mellitus with foot ulcer (principal); L97.522 Non-pressure chronic ulcer of other part of left foot with fat layer exposed; I89.0 Lymphedema, not elsewhere classified; S91.302D Unspecified open wound, left foot, subsequent encounter; S91.002D Unspecified open wound, left ankle, subsequent encounter; I83.228 Varicose veins of left lower extremity with both ulcer of other part of lower extremity and inflammation; E10.42 Type 1 diabetes mellitus with diabetic polyneuropathy; R77.0 Abnormality of albumin; Z72.0 Tobacco use; E10.22 Type 1 diabetes mellitus with diabetic chronic kidney disease; E10.40 Type 1 diabetes mellitus with diabetic neuropathy, unspecified; N18.30 Chronic kidney disease, stage 3 unspecified
CPT/HCPCS: 99406; G0463

== ENCOUNTER → 2022-10-31 | Outpatient (CLI) | payer MEDICARE, OTHER ==
[~2022-10-31] MED LIST changes: +Bumetanide2 MG PO; +DOCUZEN 8.6-501 EACH PO; -K-Dur 20 meq T20 MEQ PO; +LISI10 PO; +METO5 PO; +METO5A PO; +MIRALAX17 GM PO; +OXYC10ER PO; +POTCHL20ER PO; +SPIR25 PO
[2022-10-31 18:48] LABS: U Amphetamine Screen Not Detected; U Barbituate Screen Not Detected; U Benzodiazapine Screen DETECTED; U Buprenorphine Screen Not Detected; U Cannabinoids Screen DETECTED; U Cocaine Screen Not Detected; U Methadone Screen Not Detected; U Methamphetamine Screen Not Detected; U Opiates Screen Not Detected; U Oxycodone Screen Not Detected; U Phencyclidine Screen Not Detected; U Propoxyphene Screen Not Detected
== END | disposition home or self-care (01) ==
LOC: LAB 17:37 → LAB SHORT 17:37
PROVIDERS: Nurse Practitioner Family
DX: Z51.81 Encounter for therapeutic drug level monitoring (principal); Z79.899 Other long term (current) drug therapy

== ENCOUNTER 2022-11-07 01:36 | Day surgery (SDC) | payer MEDICARE, OTHER ==
[2022-11-16] MEDS ORDERED: OXYC10ER (10:16)
== END 2022-11-07 23:06 | disposition home or self-care (01) ==
LOC: WOUND 01:36
DX: E10.621 Type 1 diabetes mellitus with foot ulcer (principal); E10.622 Type 1 diabetes mellitus with other skin ulcer; L97.522 Non-pressure chronic ulcer of other part of left foot with fat layer exposed; L97.822 Non-pressure chronic ulcer of other part of left lower leg with fat layer exposed; L97.812 Non-pressure chronic ulcer of other part of right lower leg with fat layer exposed; L97.412 Non-pressure chronic ulcer of right heel and midfoot with fat layer exposed; L97.512 Non-pressure chronic ulcer of other part of right foot with fat layer exposed; S91.302D Unspecified open wound, left foot, subsequent encounter; S91.002D Unspecified open wound, left ankle, subsequent encounter; I83.228 Varicose veins of left lower extremity with both ulcer of other part of lower extremity and inflammation; L89.613 Pressure ulcer of right heel, stage 3; L03.115 Cellulitis of right lower limb; E10.42 Type 1 diabetes mellitus with diabetic polyneuropathy; R77.0 Abnormality of albumin; Z72.0 Tobacco use; E10.22 Type 1 diabetes mellitus with diabetic chronic kidney disease; N18.30 Chronic kidney disease, stage 3 unspecified
CPT/HCPCS: G0463

== ENCOUNTER → 2022-11-07 | Outpatient (CLI) | payer MEDICARE, OTHER ==
[2022-11-07 13:57] LABS: Source, Urine Clean Catch
[2022-11-07 14:51] LABS: Appearance, Urine Hazy (Clear); Bilirubin, Urine Neg (Neg); Blood, Urine 1+ (Neg); Glucose Qualitative, Urine Neg (Neg); Ketones, Urine Neg (Neg); Leukocyte Esterase, Urine 3+ (Neg); Nitrite, Urine Pos (Neg); Protein, Urine Neg (Neg); Specific Gravity, Urine 1.015 (1.003-1.022); Urobilinogen, Urine NORM (Normal)
[2022-11-07 15:05] LABS: Color, Urine Pale Yellow (P-Yellow)
[2022-11-07 15:06] LABS: White Blood Cells, Urine TNTC /hpf (0-5)
[2022-11-07 15:07] LABS: Bacteria Many /hpf; Squamous Epithelial Cells Few /hpf (Few)
== END | disposition home or self-care (01) ==
LOC: LAB SHORT 13:56 → LAB 13:56
PROVIDERS: Obstetrics & Gynecology
DX: N34.2 Other urethritis (principal)
CPT/HCPCS: 81001; 87077; 87086; 87186

== ENCOUNTER 2022-11-10 22:01 | Emergency (ER) | payer MEDICARE, OTHER ==
[~2022-11-10] VITALS: Ht 182.9 cm; Wt 204.1 kg
[2022-11-10 22:44] LABS: BASOPHILS ABSOLUTE AUTO 0.05 K/mm3 (0.00-0.23); BASOPHILS PERCENT AUTO 1 % (0-2); EOSINOPHILS ABSOLUTE AUTO 0.67 K/mm3 (0.00-0.68); EOSINOPHILS PERCENT AUTO 8 % (0-6); Hematocrit 32.8 % (33.0-51.0); Hemoglobin 10.5 g/dL (11.5-16.0); IMMATURE GRAN ABSOLUTE AUTO 0.03 K/mm3 (0.00-0.10); IMMATURE GRAN PERCENT AUTO 0 % (0-1); LYMPHOCYTES PERCENT AUTO 7 % (21-46); MONOCYTES ABSOLUTE AUTO 0.39 K/mm3 (0.16-1.47); MONOCYTES PERCENT AUTO 5 % (4-13); Mean Corpuscular HGB 28.9 pg (26.0-34.0); Mean Corpuscular Volume 90 fL (80-100); Mean Platelet Volume 11.9 fL (9.1-12.4); NEUTROPHILS ABSOLUTE AUTO 6.53 K/mm3 (1.96-9.15); NEUTROPHILS PERCENT AUTO 79 % (41-73); Platelet Count 246 K/mm3 (150-400); RDW Coefficient Variation 13.7 % (11.7-14.2); RDW Standard Deviation 45.4 fL (35.1-46.3); Red Blood Cell Count 3.63 M/mm3 (3.80-5.20); White Blood Cell Count 8.27 K/mm3 (4.00-11.30)
[2022-11-10 22:48] VITALS: BP 178/97
[2022-11-10 23:03] LABS: Albumin, Blood 3.5 g/dL (3.4-5.0); Albumin/Globulin Ratio 0.8 (0.8-1.8); Bilirubin, Total 0.2 mg/dL (0.1-1.0); Bun/Creatinine Ratio 40.6 (12.0-20.0); Calcium, Blood 8.4 mg/dL (8.5-10.1); Creatinine, Blood 1.92 mg/dL (0.40-1.00); Globulin, Blood 4.2 g/dL (2.2-4.0); Potassium, Blood 4.1 mmol/L (3.5-5.5); Total Protein, Blood 7.7 g/dL (6.4-8.2)
[2022-11-16] MEDS ORDERED: OXYC10ER (10:16)
== END 2022-11-10 23:44 | disposition home or self-care (01) ==
LOC: ER 22:01
PROVIDERS: Student in an Organized Health Care Education/Training Program
DX: N17.9 Acute kidney failure, unspecified (principal); E86.0 Dehydration; Z88.0 Allergy status to penicillin; Z79.899 Other long term (current) drug therapy; Z79.82 Long term (current) use of aspirin; I12.9 Hypertensive chronic kidney disease with stage 1 through stage 4 chronic kidney disease, or unspecified chronic kidney disease; E10.22 Type 1 diabetes mellitus with diabetic chronic kidney disease; N18.30 Chronic kidney disease, stage 3 unspecified; E10.40 Type 1 diabetes mellitus with diabetic neuropathy, unspecified; J45.909 Unspecified asthma, uncomplicated; E78.5 Hyperlipidemia, unspecified; F17.200 Nicotine dependence, unspecified, uncomplicated
CPT/HCPCS: 80053; 85025; 99283

== ENCOUNTER → 2022-11-12 | Outpatient (CLI) | payer MEDICARE, OTHER ==
[~2022-11-12] MED LIST changes: +Bumetanide2 MG PO; +DOCUZEN 8.6-501 EACH PO; -K-Dur 20 meq T20 MEQ PO; +LISI10 PO; +METO5 PO; +METO5A PO; +MIRALAX17 GM PO; +OXYC10ER PO; +POTCHL20ER PO; +SPIR25 PO
[2022-11-12 17:43] LABS: U Amphetamine Screen Not Detected; U Barbituate Screen Not Detected; U Benzodiazapine Screen DETECTED; U Buprenorphine Screen Not Detected; U Cannabinoids Screen DETECTED; U Cocaine Screen Not Detected; U Methadone Screen Not Detected; U Methamphetamine Screen Not Detected; U Opiates Screen Not Detected; U Oxycodone Screen Not Detected; U Phencyclidine Screen Not Detected; U Propoxyphene Screen Not Detected
== END | disposition home or self-care (01) ==
LOC: LAB SHORT 14:00 → LAB 14:00
PROVIDERS: Nurse Practitioner Family
DX: Z51.81 Encounter for therapeutic drug level monitoring (principal); G89.29 Other chronic pain; Z79.891 Long term (current) use of opiate analgesic

== ENCOUNTER 2022-11-13 14:49 | Emergency (ER) | payer MEDICARE, OTHER ==
[~2022-11-13] VITALS: Ht 182.9 cm; Wt 199.6 kg
[~2022-11-13 14:49] MED LIST changes: -Bumetanide2 MG PO; -DOCUZEN 8.6-501 EACH PO; +K-Dur 20 meq T20 MEQ PO; -LISI10 PO; -METO5 PO; -METO5A PO; -MIRALAX17 GM PO; -OXYC10ER PO; -POTCHL20ER PO; -SPIR25 PO
[2022-11-13 14:53] VITALS: BP 129/71
[2022-11-13 15:20] LABS: BASOPHILS ABSOLUTE AUTO 0.05 K/mm3 (0.00-0.23); BASOPHILS PERCENT AUTO 1 % (0-2); EOSINOPHILS ABSOLUTE AUTO 0.58 K/mm3 (0.00-0.68); EOSINOPHILS PERCENT AUTO 9 % (0-6); Hematocrit 30.4 % (33.0-51.0); Hemoglobin 9.6 g/dL (11.5-16.0); IMMATURE GRAN ABSOLUTE AUTO 0.02 K/mm3 (0.00-0.10); IMMATURE GRAN PERCENT AUTO 0 % (0-1); LYMPHOCYTES ABSOLUTE AUTO 0.52 K/mm3 (0.84-5.20); LYMPHOCYTES PERCENT AUTO 8 % (21-46); MONOCYTES ABSOLUTE AUTO 0.29 K/mm3 (0.16-1.47); MONOCYTES PERCENT AUTO 4 % (4-13); Mean Corpuscular HGB Conc 31.6 g/dL (31.5-36.5); Mean Corpuscular Volume 92 fL (80-100); Mean Platelet Volume 11.9 fL (9.1-12.4); NEUTROPHILS ABSOLUTE AUTO 5.16 K/mm3 (1.96-9.15); NEUTROPHILS PERCENT AUTO 78 % (41-73); Platelet Count 245 K/mm3 (150-400); RDW Coefficient Variation 13.8 % (11.7-14.2); RDW Standard Deviation 46.3 fL (35.1-46.3); Red Blood Cell Count 3.31 M/mm3 (3.80-5.20); White Blood Cell Count 6.62 K/mm3 (4.00-11.30)
[2022-11-13 15:26] LABS: Source, Urine Clean Catch
[2022-11-13 15:32] LABS: Appearance, Urine Clear (Clear); Bilirubin, Urine Neg (Neg); Blood, Urine Neg (Neg); Color, Urine Yellow (P-Yellow); Glucose Qualitative, Urine Neg (Neg); Ketones, Urine Neg (Neg); Leukocyte Esterase, Urine Neg (Neg); Nitrite, Urine Neg (Neg); Protein, Urine Neg (Neg); Urobilinogen, Urine NORM (Normal)
[2022-11-13 15:41] LABS: Albumin, Blood 3.2 g/dL (3.4-5.0); Albumin/Globulin Ratio 0.8 (0.8-1.8); Bilirubin, Total 0.3 mg/dL (0.1-1.0); Bun/Creatinine Ratio 31.3 (12.0-20.0); Calcium, Blood 8.4 mg/dL (8.5-10.1); Creatinine, Blood 2.3 mg/dL (0.40-1.00); Globulin, Blood 4.1 g/dL (2.2-4.0); Potassium, Blood 5.4 mmol/L (3.5-5.5); Total Protein, Blood 7.3 g/dL (6.4-8.2)
== END 2022-11-13 17:48 | disposition home or self-care (01) ==
LOC: ER 14:49
PROVIDERS: Physician Assistant
DX: R10.9 Unspecified abdominal pain (principal); Z88.0 Allergy status to penicillin; Z79.899 Other long term (current) drug therapy; Z79.4 Long term (current) use of insulin; F17.200 Nicotine dependence, unspecified, uncomplicated; E11.40 Type 2 diabetes mellitus with diabetic neuropathy, unspecified; E11.22 Type 2 diabetes mellitus with diabetic chronic kidney disease; N18.30 Chronic kidney disease, stage 3 unspecified; D63.1 Anemia in chronic kidney disease; M19.90 Unspecified osteoarthritis, unspecified site; E78.5 Hyperlipidemia, unspecified; G47.00 Insomnia, unspecified
CPT/HCPCS: 80053; 81003; 85025; 96360; 99284-25; A9270; J7030

== ENCOUNTER 2022-11-16 01:47 | Inpatient (IN) | payer MEDICARE, OTHER ==
[~2022-11-16] VITALS: Ht 182.9 cm; Wt 173.0 kg
[~2022-11-16 01:47] MED LIST changes: -K-Dur 20 meq T20 MEQ PO; +POTCHL20ER PO
[2022-11-16 03:03] LABS: BASOPHILS ABSOLUTE AUTO 0.05 K/mm3 (0.00-0.23); BASOPHILS PERCENT AUTO 1 % (0-2); EOSINOPHILS ABSOLUTE AUTO 0.63 K/mm3 (0.00-0.68); EOSINOPHILS PERCENT AUTO 7 % (0-6); Hematocrit 31.5 % (33.0-51.0); Hemoglobin 10.1 g/dL (11.5-16.0); IMMATURE GRAN ABSOLUTE AUTO 0.02 K/mm3 (0.00-0.10); IMMATURE GRAN PERCENT AUTO 0 % (0-1); LYMPHOCYTES PERCENT AUTO 7 % (21-46); MONOCYTES ABSOLUTE AUTO 0.55 K/mm3 (0.16-1.47); MONOCYTES PERCENT AUTO 6 % (4-13); Mean Corpuscular HGB 29.5 pg (26.0-34.0); Mean Corpuscular HGB Conc 32.1 g/dL (31.5-36.5); Mean Corpuscular Volume 92 fL (80-100); Mean Platelet Volume 11.8 fL (9.1-12.4); NEUTROPHILS PERCENT AUTO 79 % (41-73); Platelet Count 260 K/mm3 (150-400); RDW Coefficient Variation 14.2 % (11.7-14.2); RDW Standard Deviation 47.5 fL (35.1-46.3); Red Blood Cell Count 3.42 M/mm3 (3.80-5.20); White Blood Cell Count 8.85 K/mm3 (4.00-11.30)
[2022-11-16 03:08] LABS: Source, Urine Clean Catch
[2022-11-16 03:15] LABS: Bilirubin, Urine Neg (Neg); Blood, Urine Neg (Neg); Glucose Qualitative, Urine Neg (Neg); Ketones, Urine Neg (Neg); Leukocyte Esterase, Urine Neg (Neg); Nitrite, Urine Neg (Neg); Protein, Urine Neg (Neg); Urobilinogen, Urine NORM (Normal)
[2022-11-16 03:18] LABS: Appearance, Urine Clear (Clear); Color, Urine Yellow (P-Yellow)
[2022-11-16 03:29] LABS: Albumin, Blood 3.3 g/dL (3.4-5.0); Albumin/Globulin Ratio 0.8 (0.8-1.8); Bilirubin, Total 0.3 mg/dL (0.1-1.0); Bun/Creatinine Ratio 23.8 (12.0-20.0); Calcium, Blood 8.5 mg/dL (8.5-10.1); Creatinine, Blood 3.28 mg/dL (0.40-1.00); Potassium, Blood 5.9 mmol/L (3.5-5.5); Total Protein, Blood 7.3 g/dL (6.4-8.2)
[2022-11-16 05:12] LABS: Magnesium, Blood 2.7 mg/dL (1.6-2.4); Phosphorus, Blood 6.7 mg/dL (2.5-4.9)
[2022-11-16 09:56] VITALS: BP 120/78
[2022-11-16] MEDS ORDERED: OXYC10ER PO (10:16)
[2022-11-16] MEDS ORDERED: LISI10 PO (10:17)
[2022-11-16 13:35] LABS: Bun/Creatinine Ratio 24.7 (12.0-20.0); Calcium, Blood 8.5 mg/dL (8.5-10.1); Creatinine, Blood 3.08 mg/dL (0.40-1.00); Potassium, Blood 5.2 mmol/L (3.5-5.5)
--- NOTE | 2022-11-16 13:53 | NUR ---
RN SPOKE TO DR. HESS VIA TELEPHONE. DR. HESS WITH ORDERS FOR NEW MEDICATIONS AND LABS.
--- NOTE | 2022-11-16 13:54 | NUR ---
DURING ADMISSION, PT EDUCATED ON FIRE IGNITION SOURCES AND [facility]'S POLICIES REGARDING FIRE SAFETY.
[2022-11-16 15:29] VITALS: BP 83/58
--- NOTE | 2022-11-16 16:10 | NUR ---
RN CONSULTED WITH RESPIRATORY THERAPY PT USES A TRILOGY TO SLEEP AT NIGHT. THIS RN CALLED PT'S SON, DALTON AT [phone], AND LEFT A VOICEMAIL REQUESTING THAT HE BRING IN PT'S TRILOGY MACHINE. PT PREVIOUSLY STATED THAT SHE DIDN'T BELIEVE HER FAMILY WOULD BRING IN HER TRIOLOGY MACHINE.
[2022-11-16 19:30] VITALS: BP 108/64
--- NOTE | 2022-11-16 19:46 | NUR ---
SHIFT ASSESSMENT PT IS A&0 X4, ROOM AIR DURING THE DAY. NEEDS TRIOLOGY OR CPAP FOR NIGHT. PT HAS A LARGE BODY HABITUS, AND MOVES SLOWLY AND PAINFULLY. TWO PERSON ASSIST RECOMMENDED FOR ANY TRANSFER. PT HAS PUREWICK IN PLACE TO CONTINUOUS MODERATE SUCTION (120) DRAINING DARK YELLOW URINE WITH A FOULD ODOR. PT WAS PREVIOUSLY TREATED FOR A UTI PRIOR TO ADMISSION. PT DENIES DYSURIA. SHE IS INCONTINENT. DIABETES TYPE 1, DEXCOM IN PLACE. ADA/RENAL DIET, DOESN'T EAT PORK OR BEEF. IV TO THE RIGHT AC. LYMPHEDEMA TO BLE, WITH REDDENED SKIN AND WEEPING FROM THE RLE. PT HAS HX OF CHRONIC BACK PAIN. ALSO DIABETIC NEUROPATHY. PT IS A WOUND CLINIC PT, SHE HAS A CONSULT FOR INPATIENT WOUND CARE. SKIN IS ANSHUL WITH SCABS SCATTERED ON BUE/LLE. PT LIVES AT HOME WITH HER SON, WHO IS HER PRIMARY CAREGIVER. PLAN IS TO CONSULT WITH DR. HESS, RECHECK LABS IN THE MORNING.
[2022-11-17 02:35] VITALS: BP 118/73
[2022-11-17 04:22] LABS: Hematocrit 30.1 % (33.0-51.0); Hemoglobin 9.5 g/dL (11.5-16.0)
[2022-11-17 04:45] LABS: Albumin, Blood 2.8 g/dL (3.4-5.0); Anion Gap 7 mmol/L (6-16); Blood Urea Nitrogen 79 mg/dL (8-24); Bun/Creatinine Ratio 27.1 (12.0-20.0); CO2, Blood 23 mmol/L (21-32); Calcium, Blood 8.1 mg/dL (8.5-10.1); Chloride, Blood 104 mmol/L (98-108); Creatinine, Blood 2.92 mg/dL (0.40-1.00); Glomerular Filtration Rate 19 (60-); Glucose, Blood 174 mg/dL (70-99); Magnesium, Blood 2.9 mg/dL (1.6-2.4); Phosphorus, Blood 6.5 mg/dL (2.5-4.9); Potassium, Blood 4.9 mmol/L (3.5-5.5); Sodium, Blood 134 mmol/L (136-145)
--- NOTE | 2022-11-17 05:10 | NUR ---
SHIFT SUMMARY PT ORIENTED & COOPERATIVE T/O SHIFT. MEDICATED FOR PAIN TWICE AND ANXIETY ONCE THIS SHIFT. PT GIVEN A ONE TIME DOSE OF INSULIN EARLIER IN THE SHIFT FOR BLOOD SUGAR OF 290. SEE PREVIOUS NOTE. 15 UNITS OF LANTUS GIVEN OVERNIGHT. PT NORMALLY TAKES LANTUS IN THE AM. VS REVIEWED. NO OTHER ACUTE CHANGES IN ASSESSMENT AT THIS TIME. CALL LIGHT IN REACH. CPAP IN PLACE FOR NIGHTTIME. RESPIRATIONS EVEN & UNLABORED WHILE RESTING WITH EYES CLOSED.
[2022-11-17 08:04] VITALS: BP 117/69
[2022-11-17 16:22] VITALS: BP 97/60
--- NOTE | 2022-11-17 18:38 | NUR ---
SHIFT SUMMARY: PT A&O X4. PT PLEASANT AND COOPERATIVE WITH ALL CARE. PT HAS CHRONIC BACK PAIN THAT WAS MEDICATED PER EMAR WELL HEAT PACK. LANTUS CHANGED TO HOME AM DOSAGE INSTEAD OF PM. DULERA ORDERED PER RESPIRATORY THERAPIST. WOUND RN UNABLE TO COMPLETE WOUND CONSULT THIS SHIFT. STATED TO MYSELF AND PT THAT SHE WOULD LIKELY ROUND ALTITUDE CHAMBER TECHNICIAN TOMORROW. BANDAGES ON LLE CHANGED BY THIS RN. PT MAINTAINING 02 SATS ON RA THROUGHOUT SHIFT. PUREWICK IN PLACE WITH OCCASIONAL CHANGE. TELE IN PLACE W/O EVENTS. CALL LIGHT IN REACH. BED IN LOWEST POSITION. WILL CONTINUE TO MONITOR.
[2022-11-17 19:38] VITALS: BP 119/59
[2022-11-18 05:54] LABS: Albumin, Blood 2.7 g/dL (3.4-5.0); Anion Gap 9 mmol/L (6-16); Blood Urea Nitrogen 78 mg/dL (8-24); Bun/Creatinine Ratio 29.8 (12.0-20.0); CO2, Blood 22 mmol/L (21-32); Calcium, Blood 7.9 mg/dL (8.5-10.1); Chloride, Blood 101 mmol/L (98-108); Creatinine, Blood 2.62 mg/dL (0.40-1.00); Glomerular Filtration Rate 21 (60-); Glucose, Blood 346 mg/dL (70-99); Magnesium, Blood 2.8 mg/dL (1.6-2.4); Phosphorus, Blood 6.9 mg/dL (2.5-4.9); Potassium, Blood 5.5 mmol/L (3.5-5.5); Sodium, Blood 132 mmol/L (136-145)
[2022-11-18 05:58] LABS: Hematocrit 28.6 % (33.0-51.0)
[2022-11-18 06:15] VITALS: BP 135/63
--- NOTE | 2022-11-18 06:15 | NUR ---
SHIFT SUMMARY PT ORIENTED & COOPERATIVE THIS SHIFT. MEDICATED FOR PAIN TWICE AND ANXIIETY ONCE. SEE EMAR. PT STATES BACK PAIN IS WORSE AT THE END OF THE DAY FOR HER. WOUND CARE TO BE IN TODAY TO CONSULT ON PTS WOUNDS. NEW IV PLACED TO R FA 20G. NO CARDIAC EVENTS PER FINDING FASTENER. PT EDUCATED ON FOLLOWING HER FLUID RESTRICTION. PT WILL ASK FOR MORE FLUID THAN ALLOWED BUT IS UNDERSTANDING WHEN REMINDED OF HER FLUID RESTRICTION. NO OTHER ACUTE CHANGES IN ASSESSMENT AT THIS TIME. VS REVIEWED. CALL LIGHT IN REACH.
[2022-11-18 07:59] VITALS: BP 131/57
--- NOTE | 2022-11-18 15:12 | NUR ---
WOUND CARE STEPHANIE IS A MUTUAL PT OF AND KNOWN TO THIS RN. PT REPORTS ALL OVER ITCHING. TELEPHONE ORDER RECIEVED FOR DAILY LORATADINE AND EUCERINE LOTION. PT MAY APPLY LOTION PRN. L HEEL WITH LARGE DEEP TISSUE INJURY. PLEASE FLOAT AT ALL TIMES. WOUND PHOTOS AND ASSESSMENTS IN HARD CHART. ORDERS IN [employer]
[2022-11-18 16:03] VITALS: BP 129/59
--- NOTE | 2022-11-18 18:42 | NUR ---
SHIFT SUMMARY: PT A&O X4. PT PLEASANT AND COOPERATIVE WITH CARE. WOUND RNNIKOLE ARRIVED THIS AM TO ASSESS, CLEANSE, AND DRESS WOUNDS. WOUND ORDERS IN PLACE. PT STATED SHE WAS ITCHY ALL OVER TODAY. LORATADINE ORDERED AND GIVEN. NO C/O ITCHING SINCE. PT CONTINUE TO BE IN QUITE A BIT OF PAIN. PAIN MEDS GIVEN TWICE PER EMAR. PUREWICK IN PLACE DRAINING YELLOW URINE. RECLINER PLACED IN ROOM TO GET PT MOVING OOB. CALL LIGHT IN REACH. BED IN LOWEST POSITION. WILL CONTINUE TO MONITOR.
[2022-11-18 20:00] VITALS: BP 122/53
[2022-11-19 04:47] VITALS: BP 145/76
[2022-11-19 05:49] LABS: Hematocrit 27.9 % (33.0-51.0)
[2022-11-19 06:28] LABS: Albumin, Blood 2.8 g/dL (3.4-5.0); Anion Gap 7 mmol/L (6-16); Blood Urea Nitrogen 79 mg/dL (8-24); Bun/Creatinine Ratio 33.3 (12.0-20.0); CO2, Blood 26 mmol/L (21-32); Calcium, Blood 8.2 mg/dL (8.5-10.1); Chloride, Blood 102 mmol/L (98-108); Creatinine, Blood 2.37 mg/dL (0.40-1.00); Glomerular Filtration Rate 24 (60-); Glucose, Blood 175 mg/dL (70-99); Magnesium, Blood 2.9 mg/dL (1.6-2.4); Phosphorus, Blood 6.1 mg/dL (2.5-4.9); Potassium, Blood 4.5 mmol/L (3.5-5.5); Sodium, Blood 135 mmol/L (136-145)
--- NOTE | 2022-11-19 06:48 | NUR ---
SHIFT SUMMARY: NO NEW ACUTE CHANGES IN PATIENT CONDITION THIS SHIFT. PATIENT A&OX4. CALM, PLEASANT AND COOPERATIVE c CARE. USES CALL LIGHT APPROPRIATELY AND ABLE TO MAKE NEEDS KNOWN. DENIES CP/PRESSURE, SOB, N/V. ON TELE, SR HR IN THE HIGH 80'S BPM. PLUS THREE EDEMA TO BLE'S. REPORTS PAIN 6-9/10 TO LOWER BACK, WELL CONTROLLED c PAIN MEDS PER EMAR AND REPOSITIONING. LLE DRESSING C/D/I. BLE'S ELEVATED ON PILLOWS. INCONTINENCE OF URINE, PUREWICK SYSTEM IN PLACED AND CONNECTED TO SUCTION. RECEIVED SCHEDULED MEDS PER EMAR. VITAL SIGNS REVIEWED. CONTACT ISOLATIONS FOR MRSA IN WOUND. CALL LIGHT IN REACH. PATIENT EDUCATED ON NON SMOKING POLICY, RISK OF INJURY AND IGNITION SOURCES WHEN O2 IN USE. PATIENT DENIES SMOKING AND VERBALIZED UNDERSTANDING.
[2022-11-19 07:32] VITALS: BP 130/60
[2022-11-19 15:53] VITALS: BP 177/82
--- NOTE | 2022-11-19 18:29 | NUR ---
SHIFT SUMMARY IS A&O X 4. VSS. IS PLEASANT & COPERATIVE WITH ALL CARE. UNEVENTFUL SHIFT. PT'S BG'S ARE RUNNING HIGH. MAY BENEFIT FROM AN INCREASE IN HER LONG ACTING INSULIN. PT REPORTS SHE TAKES 38 UNITS OF GLARGINE AT HOME. MIGHT BENEFIT FROM AN INCREASE IN HER HOME DOSING & FROM A BID DOSING TO STABILIZE HER BG'S. PT UP TO CHAIR FOR APPROX 4.5 HRS TODAY[address] PUREWICK IN PLACE. UO RESPONDING TO IV BUMEX. PER WOUND RN NIKOLE, WOUND QI CHANGES ARE DUE TO BE CHANGED TOMORROW, ORIGINAL DRSNG'S PLACED YESTERDAY. MEDICATED FOR C/O CHRONIC BACK PAIN PER EMAR WITH GOOD RELIEF REPORTED BY PT WITH EACH DOSING. RENAL LABS ARE SHOWING A TRENDING IMPROVEMENT.
[2022-11-19 20:02] VITALS: BP 145/62
[2022-11-20] VITALS (9 sets, daily range): BP systolic 122–151; BP diastolic 65–87
--- NOTE | 2022-11-20 03:49 | NUR ---
SHIFT SUMMARY. SHIFT HAS BEEN MOSTLY UNREMARKABLE. AOX4, PLEASANT, COOPERATIVE WITH CARE. PAIN ADEQUATELY MANAGED VIA EMAR. PT IS TOLERATING FLUID RESTRICTION MOSTLY WELL BUT HAS REQUESTED FLUIDS OVER ALOTTED AMOUNT. AGREEABLE TO EDUCATION ON NEED FOR FLUID RESTRICTION. CPAP ON THROUGH MOST OF SHIFT. PUREWICK IN PLACE AND FUNCTIONING WELL. CALLS APPROPRIATELY. BED LOCKED IN LOWEST POSITION. CALL LIGHT LEFT WITHIN REACH.
[2022-11-20 06:02] LABS: Hematocrit 28.9 % (33.0-51.0)
[2022-11-20 06:13] LABS: Albumin, Blood 2.8 g/dL (3.4-5.0); Anion Gap 6 mmol/L (6-16); Blood Urea Nitrogen 80 mg/dL (8-24); Bun/Creatinine Ratio 38.1 (12.0-20.0); CO2, Blood 28 mmol/L (21-32); Calcium, Blood 8.2 mg/dL (8.5-10.1); Chloride, Blood 105 mmol/L (98-108); Glomerular Filtration Rate 28 (60-); Glucose, Blood 207 mg/dL (70-99); Magnesium, Blood 2.7 mg/dL (1.6-2.4); Phosphorus, Blood 5.8 mg/dL (2.5-4.9); Potassium, Blood 3.9 mmol/L (3.5-5.5); Sodium, Blood 139 mmol/L (136-145)
--- NOTE | 2022-11-20 10:02 | NUR ---
THIS RN CALLED DR. HESS ON HIS CELL PHONE TO VERIFY IV LASIX ORDER OF 160 [address] HESS REPLIED THAT THIS ORDER IS CORRECT.
--- NOTE | 2022-11-20 17:00 | NUR ---
PATIENT IS ALERT AND ORIENTED AND COOPERATIVE WITH CARE. ON RA AND CONTINUOUS PULSE OXIMETRY. DR. HESS ORDERED IV LASIX TODAY, PATIENT HAS TOLERATED TWO DOSES TODAY. PATIENT WORKED WITH PT THIS AFTERNOON. SHE IS AMBULATORY, WALKED INTO THE [facility] TODAY. SHE TRANSFERRED TO THE [facility] AND HAD A XL BM AND THEN SAT IN THE RECLINER FOR A COUPLE HOURS. PATIENT REQUESTED THE PUREWICK BE PLACED ONCE SHE GOT BACK IN BED BECAUSE SHE WAS TOO TIRED TO GET OOB AND SIT ON THE BSC TO VOID. DR. DUARTE DC'D THE DILADID THIS SHIFT, THE PATIENT WAS UPSET ABOUT THIS. SHE C/O 9/10 LOW BACK PAIN WHILE SITTING IN THE RECLINER IN NO APPARENT DISTRESS, MEDICATED PER EMAR. SHE REPORTED NO SIGNIFICANT PAIN RELIEF FROM THE PAIN MEDICATION THAT WAS ADMINISTERED BUT SAID HER PAIN ALSO WAS NOT WORSE. NEW IV PLACED THIS AFTERNOON. PATIENT CALLS APPROPRIATELY. WILL CONTINUE TO MONITOR
[2022-11-21 02:26] VITALS: BP 124/53
--- NOTE | 2022-11-21 04:44 | NUR ---
SHIFT SUMMARY. SHIFT HAS BEEN MOSTLY UNREMARKABLE. AOX4, PLEASANT, COOPERATIVE WITH CARE. REMAINS WITHIN LIMITS OF 1000ML FLUID RESTRICTION BUT IS FREQUENTLY COMPLAINING ABOUT PARAMETERS OF FLUID RESTRICTION. SOMEWHAT AMENABLE TO EDUCATION ON NEED FOR FLUID RESTRICTION BUT CONTINUES TO VOICE COMPLAINTS RELATED. UNDERSTANDS NEED. 1 PERSON TRANSFER. CPAP ON THROUGH NIGHT. PAIN WELL MANAGED ON CURRENT MEDICATION REGIMEN. CALLS APPROPRIATELY. PUREWICK IN PLACE. BED LOCKED IN LOWEST POSITION. CALL LIGHT LEFT WITHIN REACH.
[2022-11-21 05:59] LABS: Hematocrit 29.5 % (33.0-51.0); Hemoglobin 9.1 g/dL (11.5-16.0)
[2022-11-21 06:31] LABS: Albumin, Blood 2.9 g/dL (3.4-5.0); Anion Gap 6 mmol/L (6-16); Blood Urea Nitrogen 78 mg/dL (8-24); Bun/Creatinine Ratio 39.2 (12.0-20.0); CO2, Blood 30 mmol/L (21-32); Calcium, Blood 8.6 mg/dL (8.5-10.1); Chloride, Blood 101 mmol/L (98-108); Creatinine, Blood 1.99 mg/dL (0.40-1.00); Glomerular Filtration Rate 30 (60-); Glucose, Blood 378 mg/dL (70-99); Magnesium, Blood 2.6 mg/dL (1.6-2.4); Phosphorus, Blood 5.2 mg/dL (2.5-4.9); Potassium, Blood 3.5 mmol/L (3.5-5.5); Sodium, Blood 137 mmol/L (136-145)
[2022-11-21 07:32] VITALS: BP 141/67
[2022-11-21 10:49] VITALS: BP 126/54
[2022-11-21 15:41] VITALS: BP 148/65
[2022-11-21 19:52] VITALS: BP 151/69
[2022-11-22 03:25] VITALS: BP 132/62
--- NOTE | 2022-11-22 04:02 | NUR ---
SHIFT SUMMARY. SHIFT HAS BEEN LARGELY UNREMARKABLE. AOX4, PLEASANT, COOPERATIVE WITH CARE. STEADY 1-PERSON ASSIST TRANSFER. CALLS APPROPRIATELY. PAIN WELL MANAGED ON CURRENT MEDICATION REGIMEN. CPAP ON THROUGHOUT MOST OF SHIFT. HAS SLEPT SPORADICALLY. CALLS APPROPRIATELY. BED LOCKED IN LOWEST POSITION. CALL LIGHT LEFT WITHIN REACH.
[2022-11-22 06:11] LABS: Hematocrit 29.3 % (33.0-51.0); Hemoglobin 9.4 g/dL (11.5-16.0)
[2022-11-22 07:10] LABS: Albumin, Blood 2.9 g/dL (3.4-5.0); Anion Gap 8 mmol/L (6-16); Blood Urea Nitrogen 74 mg/dL (8-24); Bun/Creatinine Ratio 38.9 (12.0-20.0); CO2, Blood 30 mmol/L (21-32); Calcium, Blood 8.6 mg/dL (8.5-10.1); Chloride, Blood 100 mmol/L (98-108); Glomerular Filtration Rate 31 (60-); Glucose, Blood 195 mg/dL (70-99); Magnesium, Blood 2.5 mg/dL (1.6-2.4); Phosphorus, Blood 4.6 mg/dL (2.5-4.9); Sodium, Blood 138 mmol/L (136-145)
[2022-11-22 07:22] VITALS: BP 125/71
[2022-11-22 16:54] VITALS: BP 150/72
--- NOTE | 2022-11-22 18:04 | NUR ---
SHIFT SUMMARY PT AOX4, I P SBA C FWW. PT WAS UP IN THE CHAIR PART OF THE DAY AND TOLERATED IT WELL. PT C/O PAIN AND NAUSEA, MEDICATED PER THE EMAR. SHE HAD A BLOOD SUGAR OF 47 AT DINNER TIME, DR. DUARTE NOTIFIED AND ORDERED D50. PT'S BLOOD SUGAR WAS 107 20 MINUTES LATER, HELD PM INSULIN A RESULT. PT COOPERATIVE AND MAKES HER NEEDS KNOWN. MAK CHANGED THIS SHIFT AND PUT BACK INTO PLACE WHEN PT RETURNED TO BED. FIRE SAFETY PROCEDURES AND PROTOCOLS DISCUSSED AND THE PT AGREED. PT IS ON RA. CALL LIGHT WITHIN REACH, BED IN THE LOWEST POSITION. WILL REPORT TO ONCOMING NURSE.
[2022-11-22 20:33] VITALS: BP 156/86
[2022-11-23 02:58] VITALS: BP 149/65
--- NOTE | 2022-11-23 04:15 | NUR ---
SHIFT SUMMARY ADMITTED FOR FLUID OVERLOAD. FULL CODE. CONTACT PRECAUTIONS FOR MRSA IN WOUND. WE ARE DIURESING HER, ADMINISTERING IV ANTIB RX, AND ALBUMIN. 1000 ML FLUID RESTRICTION. ACHS CBG'S - HIGH SS. RENAL DIET. CPAP @ HS. 1 ASSIST W/FWW - BSC. I DID ACCQUIRE A BARIATRIC BSC THIS SHIFT, I HAVE REQUESTED A BARIATRIC BED. MONITORING ELECTROLYTE LABS. DR. HESS IS RENAL CONSULT.
[2022-11-23 05:09] LABS: Hematocrit 28.5 % (33.0-51.0)
[2022-11-23 05:37] LABS: Albumin, Blood 3.1 g/dL (3.4-5.0); Anion Gap 7 mmol/L (6-16); Blood Urea Nitrogen 69 mg/dL (8-24); Bun/Creatinine Ratio 34.8 (12.0-20.0); CO2, Blood 32 mmol/L (21-32); Calcium, Blood 8.4 mg/dL (8.5-10.1); Chloride, Blood 99 mmol/L (98-108); Creatinine, Blood 1.98 mg/dL (0.40-1.00); Glomerular Filtration Rate 30 (60-); Glucose, Blood 287 mg/dL (70-99); Magnesium, Blood 2.4 mg/dL (1.6-2.4); Phosphorus, Blood 4.3 mg/dL (2.5-4.9); Potassium, Blood 3.4 mmol/L (3.5-5.5); Sodium, Blood 138 mmol/L (136-145)
[2022-11-23 08:22] VITALS: BP 139/80
--- NOTE | 2022-11-23 10:21 | NUR ---
ATTEMPTED MED PASS AT 0930 AND 1030. PT IS VERY TIRED AND REQUESTING TO SLEEP LONGER BEFORE PO MEDS. EMPHASIZED THE IMPORTANCE OF TAKING MEDICAITONS ON SCHEDULE. INFORMED OF THE RISK OF POTASSIUM LOSS WITH DURETICS AND THE NEED TO TAKE POTASSIUM PRESCRIBED. PT WANTS TO WAIT 20 MORE MINS.
--- NOTE | 2022-11-23 11:34 | NUR ---
PT DECLINING TO TAKE MORNING PO MEDICATION BECAUSE SHE FEELS TOO TIRED. PT NOT ABLE TO STAY AWAKE DURING CONVERSATION. DR. DUARTE NOTIFIED. VBG ORDERED.
[2022-11-23 11:59] LABS: Base Excess Venous 8.6 mmol/L; Bicarbonate Venous 30.8 mmol/L (24.0-30.0); PCO2 Venous 67.2 mmHg (38-42); pH Blood Venous 7.32 (7.34-7.37)
--- NOTE | 2022-11-23 12:11 | NUR ---
VBG RESULTS COMPLETE. NOTIFIED DR. DUARTE, OK TO HOLD MEDICAITONS FOR NOW, WILL DO REPEAT VBG AT 1600.
--- NOTE | 2022-11-23 14:08 | NUR ---
PT IS ALERT AND ORIENTED X4. STATES THAT SHE DOESNT REMEMBER ANYTHING FROM THIS MORNING. PT IS SITTING UP EATING, PO MEDICATIONS GIVEN.
[2022-11-23 15:20] VITALS: BP 144/65
[2022-11-23 16:31] LABS: Base Excess Venous 12.1 mmol/L; Bicarbonate Venous 34.9 mmol/L (24.0-30.0); PCO2 Venous 41.2 mmHg (38-42); pH Blood Venous 7.53 (7.34-7.37)
--- NOTE | 2022-11-23 16:55 | NUR ---
PT REPEAT VBG COMPLETE. NOTIFIED DR. DUARTE. PT HAS BEEN OFF OF CPAP SINCE 1230 SHE IS ALERT AND ORIENTEDX4. NO CHANGES AT THIS TIME. CONTINUE TO MONITOR MENTATION FOR CHANGES
--- NOTE | 2022-11-23 16:58 | NUR ---
SHIFT SUMMARY PT IS ALERT AND ORIENTED X4 SITTING UP IN BED. DENIES PAIN IN CHEST AND SOB. PT WOULD REALLY LIKE TO HAVE A BARIATRIC BED IF POSSIBLE. PLS SEE PREVIOUS NURSE NOTES FOR DETAILS ON DAYS EVENTS.
[2022-11-23 20:32] VITALS: BP 166/86
[2022-11-23 22:41] VITALS: BP 128/67
[2022-11-23 22:45] VITALS: BP 122/78
[2022-11-24 00:02] VITALS: BP 122/66
[2022-11-24 03:17] VITALS: BP 125/61
[2022-11-24 05:16] LABS: Hematocrit 29.1 % (33.0-51.0); Hemoglobin 9.3 g/dL (11.5-16.0)
[2022-11-24 05:43] LABS: Albumin, Blood 3.5 g/dL (3.4-5.0); Anion Gap 10 mmol/L (6-16); Blood Urea Nitrogen 69 mg/dL (8-24); Bun/Creatinine Ratio 35.9 (12.0-20.0); CO2, Blood 31 mmol/L (21-32); Calcium, Blood 8.6 mg/dL (8.5-10.1); Chloride, Blood 96 mmol/L (98-108); Creatinine, Blood 1.92 mg/dL (0.40-1.00); Glomerular Filtration Rate 31 (60-); Glucose, Blood 289 mg/dL (70-99); Magnesium, Blood 2.5 mg/dL (1.6-2.4); Phosphorus, Blood 4.4 mg/dL (2.5-4.9); Potassium, Blood 3.2 mmol/L (3.5-5.5); Sodium, Blood 137 mmol/L (136-145)
--- NOTE | 2022-11-24 07:46 | NUR ---
shift summmary- Pt alert and oriented 1pa to the bathroom when needed. iv bumex drip unning continuiously. Pt in bed cpap in placed sleeping soundly, 0600 meds not given d/t pt sleeping passed on to day rn the need for these meds to be given. pt did not go to sleep until 0400. bp has remained stable t/o the night, pt sleeping in bed, call light in reach no s&s of distress.
[2022-11-24 07:59] VITALS: BP 129/65
[2022-11-24 14:59] VITALS: BP 134/78
--- NOTE | 2022-11-24 16:48 | NUR ---
SHIFT SUMMARY PT A&OX4, COOPERATIVE WITH CARE. PT HAD MOMENTS OF IRRITABILITY R/T NOT RECEIVING THE MEALS SHE HAD ORDERED. NO ACUTE CHANGES THIS SHIFT. TREATED FOR LOW BACK PAIN WITH ALEYDA TWICE TODAY. PATIENT DENIED HEADACHE, SOB, CHEST PAIN, OR DIZZINESS. WORKED WELL WITH PT. PATIENT IS CURRENTLY SITING IN HER RECLINER WATCHING TV AND WAITING FOR DINNER. CALL LIGHT IS WITHIN REACH.
[2022-11-24 20:06] VITALS: BP 147/71
[2022-11-24 21:44] LABS: Influenza A, PCR NEGATIVE (NEGATIVE); Influenza B, PCR NEGATIVE (NEGATIVE); Resp Syncytial Virus, PCR NEGATIVE (NEGATIVE); SARS-Cov-2 (COVID-19) PCR, MMC NEGATIVE (NEGATIVE)
[2022-11-25 04:13] VITALS: BP 125/62
[2022-11-25 05:23] LABS: Hematocrit 29.9 % (33.0-51.0); Hemoglobin 9.3 g/dL (11.5-16.0)
--- NOTE | 2022-11-25 05:41 | NUR ---
SHIFT SUMMARY A/OX4, 1P ASSIST. BUMEX GTT INFUSING PER EMAR. PUREWICK IN PLACE. COMPLIANT WITH CPAP T/O NIGHT. C/O PAIN TO LOWER BACK AND BILATERAL LEGS, MEDICATED PER EMAR. PT REPORTED RECENT COVID EXPOSURE, RAPID COVID COMPLETED WHICH WAS NEGATIVE. VSS, NO ACUTE CHANGES AT THIS TIME. BED IN LOWEST POSITION WITH CALL LIGHT IN REACH. WILL CONTINUE TO MONITOR AND REPORT TO ONCOMING RN.
[2022-11-25 05:52] LABS: Albumin, Blood 3.6 g/dL (3.4-5.0); Anion Gap 10 mmol/L (6-16); Blood Urea Nitrogen 70 mg/dL (8-24); Bun/Creatinine Ratio 34.7 (12.0-20.0); CO2, Blood 33 mmol/L (21-32); Calcium, Blood 8.8 mg/dL (8.5-10.1); Chloride, Blood 96 mmol/L (98-108); Creatinine, Blood 2.02 mg/dL (0.40-1.00); Glomerular Filtration Rate 29 (60-); Glucose, Blood 352 mg/dL (70-99); Magnesium, Blood 2.4 mg/dL (1.6-2.4); Phosphorus, Blood 4.7 mg/dL (2.5-4.9); Potassium, Blood 3.6 mmol/L (3.5-5.5); Sodium, Blood 139 mmol/L (136-145)
[2022-11-25 08:02] VITALS: BP 153/75
--- NOTE | 2022-11-25 14:28 | NUR ---
PATIENT COMPLAINING OF "DEHYDRATION" AND FEELING WOOZY FROM HAVING HIGH BLOOD SUGARS. DESHAWN AND GERALD BOTH AGREE TO CONTINUE 1L DAILY FLUID RESTRICTION. PATIENT NOTED TO BE UPSET BUT WILLING TO COMPLY.
[2022-11-25 14:39] VITALS: BP 151/64
--- NOTE | 2022-11-25 16:36 | NUR ---
SHIFT SUMMARY A&Ox4, COOPERATIVE WITH CARE. PATIENT SEMI-COMPLIANT WITH FLUID RESTRICTION T/O SHIFT. DESHAWN AND GERALD ARE FIRM ON THE 1L FLUID RESTRICTION AND PATIENT WAS INFORMED. BLOOG SUGARS ABOVE 350 T/O SHIFT. COMPLAINED OF "WOOZINESS" AND VEBALIZED SHE WAS DEHYDRATED. WOUND CARE COMPLETED BY MAGDALENO AGUSTIN. PATIENT USES A PUREWICK WHILE IN BED. COMPLAINED OF PAIN TO HER LOW BACK AND LEGS AND MEDICATED PER EMAR PROTOCOL. BLE 3+ PITTING EDEMA, NO WEEPING NOTED. USES CPAP AT NIGHT. PATIENT MAKES HER NEEDS KNOWN. MOEENLTY SITTING UP IN BED, WATCHING TV. CALL LIGHT IN REACH.
[2022-11-25 19:35] VITALS: BP 133/70
[2022-11-26 02:19] VITALS: BP 131/62
[2022-11-26 05:46] LABS: Hematocrit 29.8 % (33.0-51.0); Hemoglobin 9.1 g/dL (11.5-16.0)
[2022-11-26 06:06] LABS: Albumin, Blood 3.8 g/dL (3.4-5.0); Anion Gap 5 mmol/L (6-16); Blood Urea Nitrogen 78 mg/dL (8-24); Bun/Creatinine Ratio 37.3 (12.0-20.0); CO2, Blood 36 mmol/L (21-32); Calcium, Blood 8.9 mg/dL (8.5-10.1); Chloride, Blood 97 mmol/L (98-108); Creatinine, Blood 2.09 mg/dL (0.40-1.00); Glomerular Filtration Rate 28 (60-); Glucose, Blood 326 mg/dL (70-99); Magnesium, Blood 2.4 mg/dL (1.6-2.4); Phosphorus, Blood 5.3 mg/dL (2.5-4.9); Potassium, Blood 4.1 mmol/L (3.5-5.5); Sodium, Blood 138 mmol/L (136-145)
--- NOTE | 2022-11-26 06:23 | NUR ---
SHIFT SUMMARY PURE WIK IN PLACE AND WORKING WELL. BED SHEETS CHANGED OVERNIGHT. ZACHARY CARE COMPLETED BY RN. PT MEDICATED FOR PAIN ONCE THIS SHIFT. SEE EMAR. NO OTHER ACUTE CHANGES IN ASSESSMENT AT THIS TIME. VS REVIEWED. CALL LIGHT IN REACH. PT CURRENTLY RESTING IN BED WITH EVEN & UNLABORED RESPIRATIONS. CPAP IN PLACE.
[2022-11-26 08:01] VITALS: BP 165/83
[2022-11-26] MEDS ORDERED: Bumetanide2 MG PO (12:07)
[2022-11-26] MEDS ORDERED: Isosorbide Mono30 MG PO (12:14)
[2022-11-26] MEDS ORDERED: DOCUZEN 8.6-501 EACH PO (12:20)
[2022-11-26] MEDS ORDERED: MIRALAX17 GM PO (12:21)
[2022-11-26] MEDS ORDERED: METO5 PO (12:21)
[2022-11-26] MEDS ORDERED: SPIR25 PO (12:22)
[2022-11-26] MEDS ORDERED: METO5A PO (12:23)
[2022-11-26] MEDS ORDERED: NOVOLOG FL100 UNIT/3 SC (12:26)
--- NOTE | 2022-11-26 13:26 | NUR ---
DC- RN BROUGHT PT DOWNSTAIRS FOR DC TO SON. PT IN STABLE CONDITION. PT LEFT WITH ALL BELONGINGS. ALL DC PAPERWORK SIGNED AND VERBALLY AGREED TO UNDERSTANDING.
== END 2022-11-26 13:10 | disposition home or self-care (01) | DRG 682 ==
LOC: ER 01:47 → MEDS 08:11 → ENPENDDIS 11-26 11:13 → MEDS 11-26 13:10
PROVIDERS: Emergency Medicine; Internal Medicine; Internal Medicine Nephrology; Nurse Practitioner Acute Care; ADMIT Internal Medicine
PROC: 5A09357 Assistance with Respiratory Ventilation, Less than 24 Consecutive Hours, Continuous Positive Airway Pressure (ICD-10-PCS; principal; 2022-11-16)
DX: N17.0 Acute kidney failure with tubular necrosis (principal); G93.41 Metabolic encephalopathy; E87.20 Acidosis, unspecified; E87.1 Hypo-osmolality and hyponatremia; Z68.43 Body mass index [BMI] 50.0-59.9, adult; L03.115 Cellulitis of right lower limb; L03.116 Cellulitis of left lower limb; M54.50 Low back pain, unspecified; G89.29 Other chronic pain; G47.33 Obstructive sleep apnea (adult) (pediatric); E66.01 Morbid (severe) obesity due to excess calories; K80.20 Calculus of gallbladder without cholecystitis without obstruction; Z20.822 Contact with and (suspected) exposure to COVID-19; E78.5 Hyperlipidemia, unspecified; J44.9 Chronic obstructive pulmonary disease, unspecified; D63.1 Anemia in chronic kidney disease; E87.5 Hyperkalemia; F11.90 Opioid use, unspecified, uncomplicated; M19.90 Unspecified osteoarthritis, unspecified site; E87.6 Hypokalemia; G47.00 Insomnia, unspecified; N25.81 Secondary hyperparathyroidism of renal origin; E03.9 Hypothyroidism, unspecified; I89.0 Lymphedema, not elsewhere classified; E87.70 Fluid overload, unspecified; E10.40 Type 1 diabetes mellitus with diabetic neuropathy, unspecified; M51.9 Unspecified thoracic, thoracolumbar and lumbosacral intervertebral disc disorder; F41.9 Anxiety disorder, unspecified; F32.A Depression, unspecified; F17.210 Nicotine dependence, cigarettes, uncomplicated; E10.649 Type 1 diabetes mellitus with hypoglycemia without coma; K59.00 Constipation, unspecified; E10.22 Type 1 diabetes mellitus with diabetic chronic kidney disease; E83.39 Other disorders of phosphorus metabolism; N18.4 Chronic kidney disease, stage 4 (severe); I12.9 Hypertensive chronic kidney disease with stage 1 through stage 4 chronic kidney disease, or unspecified chronic kidney disease; Z79.01 Long term (current) use of anticoagulants; Z79.4 Long term (current) use of insulin; Z79.899 Other long term (current) drug therapy; Z79.2 Long term (current) use of antibiotics; Z90.710 Acquired absence of both cervix and uterus; Z88.0 Allergy status to penicillin; Z86.14 Personal history of Methicillin resistant Staphylococcus aureus infection; Z79.82 Long term (current) use of aspirin; Z79.890 Hormone replacement therapy; Z99.89 Dependence on other enabling machines and devices; Z79.51 Long term (current) use of inhaled steroids; Z74.09 Other reduced mobility
CPT/HCPCS: 0241U; 36415; 74176; 80048; 80053; 80069; 81003; 82550; 82803; 82947; 83735; 84100; 85014; 85018; 85025; 93005; 93010; 93306; 94640; 94660; 94664; 94762; 96361; 96365; 96374; 96375; 97110; 97112; 97116; 97161; 97530; 99285-25; A9270; J0612; J0696; J0881; J1170; J1650; J1815; J1940; J2405; J2765; J7030; J7050; P9047

== ENCOUNTER 2022-12-12 00:49 | Day surgery (SDC) | payer MEDICARE, OTHER ==
[~2022-12-12 00:49] MED LIST changes: +Bumetanide2 MG PO; +DOCUZEN 8.6-501 EACH PO; +LISI10 PO; +METO5 PO; +METO5A PO; +MIRALAX17 GM PO; +OXYC10ER PO; +SPIR25 PO
== END 2022-12-12 22:48 | disposition home or self-care (01) ==
LOC: WOUND 00:49
DX: L97.322 Non-pressure chronic ulcer of left ankle with fat layer exposed (principal); L89.613 Pressure ulcer of right heel, stage 3; L97.812 Non-pressure chronic ulcer of other part of right lower leg with fat layer exposed; L97.822 Non-pressure chronic ulcer of other part of left lower leg with fat layer exposed; L97.412 Non-pressure chronic ulcer of right heel and midfoot with fat layer exposed; L97.512 Non-pressure chronic ulcer of other part of right foot with fat layer exposed; S91.302D Unspecified open wound, left foot, subsequent encounter; S91.002D Unspecified open wound, left ankle, subsequent encounter; S91.104D Unspecified open wound of right lesser toe(s) without damage to nail, subsequent encounter; X58.XXXD Exposure to other specified factors, subsequent encounter; I83.228 Varicose veins of left lower extremity with both ulcer of other part of lower extremity and inflammation; L03.115 Cellulitis of right lower limb; E10.42 Type 1 diabetes mellitus with diabetic polyneuropathy; I89.0 Lymphedema, not elsewhere classified
CPT/HCPCS: G0463

== ENCOUNTER 2022-12-22 11:25 | Day surgery (SDC) | payer MEDICARE, OTHER ==
[2022-12-23] MEDS ORDERED: PREG150 PO (05:19)
[2022-12-23] MEDS ORDERED: ASCO500 PO (08:31)
[2022-12-23] MEDS ORDERED: FERSU300 PO (08:31)
[2022-12-23] MEDS ORDERED: ZINC50 M3 PO (08:32)
[2022-12-23] MEDS ORDERED: [UNRECOGNIZED DRUG - OTHER] PO (08:33)
== END 2022-12-22 22:57 | disposition home or self-care (01) ==
LOC: WOUND 11:25
DX: E10.622 Type 1 diabetes mellitus with other skin ulcer (principal); E10.621 Type 1 diabetes mellitus with foot ulcer; L97.812 Non-pressure chronic ulcer of other part of right lower leg with fat layer exposed; L97.822 Non-pressure chronic ulcer of other part of left lower leg with fat layer exposed; L97.412 Non-pressure chronic ulcer of right heel and midfoot with fat layer exposed; L97.512 Non-pressure chronic ulcer of other part of right foot with fat layer exposed; S91.302D Unspecified open wound, left foot, subsequent encounter; S91.002D Unspecified open wound, left ankle, subsequent encounter; S91.104D Unspecified open wound of right lesser toe(s) without damage to nail, subsequent encounter; L89.613 Pressure ulcer of right heel, stage 3; L03.115 Cellulitis of right lower limb; E10.42 Type 1 diabetes mellitus with diabetic polyneuropathy; I89.0 Lymphedema, not elsewhere classified; R77.0 Abnormality of albumin; Z72.0 Tobacco use; I83.228 Varicose veins of left lower extremity with both ulcer of other part of lower extremity and inflammation
CPT/HCPCS: G0463

== ENCOUNTER 2022-12-22 15:11 | Inpatient (IN) | payer MEDICARE, OTHER ==
[~2022-12-22] VITALS: Ht 182.9 cm; Wt 169.9 kg
[2022-12-22 15:56] LABS: BASOPHILS ABSOLUTE AUTO 0.02 K/mm3 (0.00-0.23); BASOPHILS PERCENT AUTO 0 % (0-2); EOSINOPHILS PERCENT AUTO 6 % (0-6); Hematocrit 19.9 % (33.0-51.0); Hemoglobin 6.3 g/dL (11.5-16.0); IMMATURE GRAN ABSOLUTE AUTO 0.04 K/mm3 (0.00-0.10); IMMATURE GRAN PERCENT AUTO 1 % (0-1); LYMPHOCYTES ABSOLUTE AUTO 0.42 K/mm3 (0.84-5.20); LYMPHOCYTES PERCENT AUTO 6 % (21-46); MONOCYTES ABSOLUTE AUTO 0.28 K/mm3 (0.16-1.47); MONOCYTES PERCENT AUTO 4 % (4-13); Mean Corpuscular HGB 29.3 pg (26.0-34.0); Mean Corpuscular HGB Conc 31.7 g/dL (31.5-36.5); Mean Corpuscular Volume 93 fL (80-100); NEUTROPHILS ABSOLUTE AUTO 6.08 K/mm3 (1.96-9.15); NEUTROPHILS PERCENT AUTO 84 % (41-73); Platelet Count 125 K/mm3 (150-400); RDW Coefficient Variation 15.9 % (11.7-14.2); RDW Standard Deviation 49.1 fL (35.1-46.3); Red Blood Cell Count 2.15 M/mm3 (3.80-5.20); White Blood Cell Count 7.24 K/mm3 (4.00-11.30)
[2022-12-22 16:37] LABS: Albumin, Blood 3.2 g/dL (3.4-5.0); Bilirubin, Total 0.3 mg/dL (0.1-1.0); Bun/Creatinine Ratio 35.5 (12.0-20.0); Calcium, Blood 7.2 mg/dL (8.5-10.1); Creatinine, Blood 4.73 mg/dL (0.40-1.00); Globulin, Blood 3.3 g/dL (2.2-4.0); Potassium, Blood 6.4 mmol/L (3.5-5.5); Total Protein, Blood 6.5 g/dL (6.4-8.2)
[2022-12-22 21:05] LABS: C-REACTIVE PROTEIN, EXT RANGE 2.74 mg/dL (0.000-0.300)
[2022-12-22 21:06] LABS: International Normalized Ratio 0.98; Prothrombin Time Results 10.3 Sec (9.7-11.5)
[2022-12-22 21:09] LABS: Bun/Creatinine Ratio 38.3 (12.0-20.0); Calcium, Blood 6.9 mg/dL (8.5-10.1); Creatinine, Blood 4.62 mg/dL (0.40-1.00); Potassium, Blood 5.1 mmol/L (3.5-5.5)
[2022-12-23] VITALS (19 sets, daily range): BP systolic 66–141; BP diastolic 42–115
[2022-12-23] MEDS ORDERED: PREG150 PO (05:19)
[2022-12-23] MEDS ORDERED: FERSU300 PO (08:31)
[2022-12-23] MEDS ORDERED: ASCO500 PO (08:31)
[2022-12-23] MEDS ORDERED: ZINC50 M3 PO (08:32)
[2022-12-23] MEDS ORDERED: [UNRECOGNIZED DRUG - OTHER] PO (08:33)
[2022-12-23 08:45] LABS: BASOPHILS ABSOLUTE AUTO 0.03 K/mm3 (0.00-0.23); BASOPHILS PERCENT AUTO 1 % (0-2); EOSINOPHILS ABSOLUTE AUTO 0.35 K/mm3 (0.00-0.68); EOSINOPHILS PERCENT AUTO 7 % (0-6); Hematocrit 23.9 % (33.0-51.0); Hemoglobin 7.5 g/dL (11.5-16.0); IMMATURE GRAN ABSOLUTE AUTO 0.02 K/mm3 (0.00-0.10); IMMATURE GRAN PERCENT AUTO 0 % (0-1); LYMPHOCYTES ABSOLUTE AUTO 0.47 K/mm3 (0.84-5.20); LYMPHOCYTES PERCENT AUTO 9 % (21-46); MONOCYTES ABSOLUTE AUTO 0.24 K/mm3 (0.16-1.47); MONOCYTES PERCENT AUTO 5 % (4-13); Mean Corpuscular HGB 28.8 pg (26.0-34.0); Mean Corpuscular HGB Conc 31.4 g/dL (31.5-36.5); Mean Corpuscular Volume 92 fL (80-100); Mean Platelet Volume 12.9 fL (9.1-12.4); NEUTROPHILS ABSOLUTE AUTO 4.27 K/mm3 (1.96-9.15); NEUTROPHILS PERCENT AUTO 79 % (41-73); Platelet Count 119 K/mm3 (150-400); RDW Coefficient Variation 16.9 % (11.7-14.2); RDW Standard Deviation 51.6 fL (35.1-46.3); White Blood Cell Count 5.38 K/mm3 (4.00-11.30)
[2022-12-23 09:08] LABS: Magnesium, Blood 3.7 mg/dL (1.6-2.4)
[2022-12-23 09:50] LABS: Albumin, Blood 3.2 g/dL (3.4-5.0); Albumin/Globulin Ratio 0.9 (0.8-1.8); Bilirubin, Total 0.3 mg/dL (0.1-1.0); Bun/Creatinine Ratio 38.4 (12.0-20.0); Creatinine, Blood 4.45 mg/dL (0.40-1.00); Globulin, Blood 3.4 g/dL (2.2-4.0); Phosphorus, Blood 10.7 mg/dL (2.5-4.9); Potassium, Blood 5.6 mmol/L (3.5-5.5); Total Protein, Blood 6.6 g/dL (6.4-8.2)
[2022-12-23 17:11] LABS: Hematocrit 19.1 % (33.0-51.0)
[2022-12-24] VITALS (27 sets, daily range): BP systolic 81–127; BP diastolic 43–96
[2022-12-24 04:33] LABS: Hemoglobin 7.2 g/dL (11.5-16.0); Mean Corpuscular HGB 30.1 pg (26.0-34.0); Mean Corpuscular HGB Conc 32.7 g/dL (31.5-36.5); Mean Corpuscular Volume 92 fL (80-100); Platelet Count 95 K/mm3 (150-400); RDW Coefficient Variation 16.3 % (11.7-14.2); RDW Standard Deviation 51.2 fL (35.1-46.3); Red Blood Cell Count 2.39 M/mm3 (3.80-5.20); White Blood Cell Count 4.13 K/mm3 (4.00-11.30)
[2022-12-24 04:44] LABS: Magnesium, Blood 3.7 mg/dL (1.6-2.4)
[2022-12-24 04:48] LABS: Mean Platelet Volume 13.3 fL (9.1-12.4)
[2022-12-24 06:01] LABS: BASOPHILS PERCENT MAN 0 % (0-2); EOSINOPHILS ABSOLUTE MAN 0.41 K/mm3 (0.00-0.68); EOSINOPHILS PERCENT MAN 10 % (0-6); LYMPHOCYTES ABSOLUTE MAN 0.41 K/mm3 (0.84-5.20); LYMPHOCYTES PERCENT MAN 10 % (21-46); MONOCYTES ABSOLUTE MAN 0.04 K/mm3 (0.16-1.47); MONOCYTES PERCENT MAN 1 % (4-13); NEUTROPHILS ABSOLUTE MAN 3.26 K/mm3 (1.96-9.15); SEG NEUTROPHILS PERCENT MAN 79 % (41-73); TOTAL CELLS COUNTED 100
[2022-12-24 06:45] LABS: Albumin, Blood 3.1 g/dL (3.4-5.0); CO2, Blood 23 mmol/L (21-32); Calcium, Blood 6.7 mg/dL (8.5-10.1); Creatinine, Blood 4.84 mg/dL (0.40-1.00); Glomerular Filtration Rate 10 (60-); Glucose, Blood 63 mg/dL (70-99)
[2022-12-24 07:03] LABS: Blood Urea Nitrogen 163 mg/dL (8-24); Bun/Creatinine Ratio 33.7 (12.0-20.0); Phosphorus, Blood 11.2 mg/dL (2.5-4.9)
[2022-12-24 14:04] LABS: Anion Gap 10 mmol/L (6-16); Chloride, Blood 104 mmol/L (98-108); Potassium, Blood 5.8 mmol/L (3.5-5.5); Sodium, Blood 137 mmol/L (136-145)
[2022-12-24 17:46] LABS: Hematocrit 22.8 % (33.0-51.0); Hemoglobin 7.4 g/dL (11.5-16.0)
[2022-12-24 18:34] LABS: Albumin, Blood 3.5 g/dL (3.4-5.0); Anion Gap 12 mmol/L (6-16); Blood Urea Nitrogen 161 mg/dL (8-24); Bun/Creatinine Ratio 34.5 (12.0-20.0); CO2, Blood 22 mmol/L (21-32); Calcium, Blood 6.9 mg/dL (8.5-10.1); Chloride, Blood 101 mmol/L (98-108); Creatinine, Blood 4.67 mg/dL (0.40-1.00); Glomerular Filtration Rate 11 (60-); Glucose, Blood 121 mg/dL (70-99); Phosphorus, Blood 10.8 mg/dL (2.5-4.9); Potassium, Blood 4.9 mmol/L (3.5-5.5); Sodium, Blood 135 mmol/L (136-145)
[2022-12-25 04:12] VITALS: BP 118/55
[2022-12-25 05:19] LABS: BASOPHILS ABSOLUTE AUTO 0.02 K/mm3 (0.00-0.23); BASOPHILS PERCENT AUTO 1 % (0-2); EOSINOPHILS ABSOLUTE AUTO 0.26 K/mm3 (0.00-0.68); EOSINOPHILS PERCENT AUTO 6 % (0-6); Hematocrit 22.6 % (33.0-51.0); Hemoglobin 7.4 g/dL (11.5-16.0); IMMATURE GRAN ABSOLUTE AUTO 0.02 K/mm3 (0.00-0.10); IMMATURE GRAN PERCENT AUTO 1 % (0-1); LYMPHOCYTES ABSOLUTE AUTO 0.32 K/mm3 (0.84-5.20); LYMPHOCYTES PERCENT AUTO 8 % (21-46); MONOCYTES ABSOLUTE AUTO 0.22 K/mm3 (0.16-1.47); MONOCYTES PERCENT AUTO 5 % (4-13); Mean Corpuscular HGB 29.8 pg (26.0-34.0); Mean Corpuscular HGB Conc 32.7 g/dL (31.5-36.5); Mean Corpuscular Volume 91 fL (80-100); NEUTROPHILS PERCENT AUTO 80 % (41-73); Platelet Count 102 K/mm3 (150-400); RDW Coefficient Variation 16.5 % (11.7-14.2); RDW Standard Deviation 53.6 fL (35.1-46.3); Red Blood Cell Count 2.48 M/mm3 (3.80-5.20); White Blood Cell Count 4.14 K/mm3 (4.00-11.30)
[2022-12-25 05:29] LABS: Mean Platelet Volume 13.3 fL (9.1-12.4)
[2022-12-25 05:40] LABS: Magnesium, Blood 3.5 mg/dL (1.6-2.4)
[2022-12-25 06:22] LABS: Albumin, Blood 3.3 g/dL (3.4-5.0); Anion Gap 12 mmol/L (6-16); CO2, Blood 22 mmol/L (21-32); Calcium, Blood 6.5 mg/dL (8.5-10.1); Chloride, Blood 102 mmol/L (98-108); Creatinine, Blood 4.38 mg/dL (0.40-1.00); Glomerular Filtration Rate 11 (60-); Glucose, Blood 147 mg/dL (70-99); Sodium, Blood 136 mmol/L (136-145)
[2022-12-25 06:24] LABS: Blood Urea Nitrogen 169 mg/dL (8-24); Bun/Creatinine Ratio 38.6 (12.0-20.0); Phosphorus, Blood 10.2 mg/dL (2.5-4.9)
[2022-12-25 07:34] VITALS: BP 115/90
[2022-12-25 09:25] VITALS: BP 134/74
[2022-12-25 11:25] VITALS: BP 115/88
[2022-12-25 16:04] VITALS: BP 130/60
[2022-12-25 20:30] VITALS: BP 111/94
[2022-12-26 00:40] VITALS: BP 137/57
[2022-12-26 05:30] VITALS: BP 124/54
[2022-12-26 06:54] LABS: Hematocrit 22.6 % (33.0-51.0); Hemoglobin 7.2 g/dL (11.5-16.0); Mean Corpuscular HGB 29.6 pg (26.0-34.0); Mean Corpuscular HGB Conc 31.9 g/dL (31.5-36.5); Mean Corpuscular Volume 93 fL (80-100); Platelet Count 104 K/mm3 (150-400); RDW Coefficient Variation 16.6 % (11.7-14.2); RDW Standard Deviation 55.5 fL (35.1-46.3); Red Blood Cell Count 2.43 M/mm3 (3.80-5.20); White Blood Cell Count 4.64 K/mm3 (4.00-11.30)
[2022-12-26 07:40] LABS: BASOPHILS PERCENT MAN 0 % (0-2); EOSINOPHILS ABSOLUTE MAN 0.23 K/mm3 (0.00-0.68); EOSINOPHILS PERCENT MAN 5 % (0-6); LYMPHOCYTES ABSOLUTE MAN 0.32 K/mm3 (0.84-5.20); LYMPHOCYTES PERCENT MAN 7 % (21-46); MONOCYTES ABSOLUTE MAN 0.13 K/mm3 (0.16-1.47); MONOCYTES PERCENT MAN 3 % (4-13); NEUTROPHILS ABSOLUTE MAN 3.94 K/mm3 (1.96-9.15); SEG NEUTROPHILS PERCENT MAN 85 % (41-73); TOTAL CELLS COUNTED 100
[2022-12-26 08:14] LABS: Magnesium, Blood 3.4 mg/dL (1.6-2.4)
[2022-12-26 08:41] LABS: Albumin, Blood 3.5 g/dL (3.4-5.0); Albumin/Globulin Ratio 1.1 (0.8-1.8); Bilirubin, Total 0.4 mg/dL (0.1-1.0); Bun/Creatinine Ratio 33.4 (12.0-20.0); Calcium, Blood 6.9 mg/dL (8.5-10.1); Creatinine, Blood 4.4 mg/dL (0.40-1.00); Globulin, Blood 3.2 g/dL (2.2-4.0); Phosphorus, Blood 9.1 mg/dL (2.5-4.9); Potassium, Blood 4.3 mmol/L (3.5-5.5); Total Protein, Blood 6.7 g/dL (6.4-8.2)
[2022-12-26 09:13] VITALS: BP 137/67
[2022-12-26 12:04] VITALS: BP 102/66
[2022-12-26] MEDS ORDERED: FURO80 PO (15:17)
[2022-12-26] MEDS ORDERED: MIDO5 PO (16:14)
== END 2022-12-26 17:48 | disposition home or self-care (01) | DRG 605 ==
LOC: ER 15:11 → PCU 20:59 → ERHOLD 20:59 → ER 20:59 → EDBEDREQSVC 22:17 → PCU 12-23 04:58
PROVIDERS: Internal Medicine; Internal Medicine Nephrology; Nurse Practitioner Acute Care; Student in an Organized Health Care Education/Training Program; ADMIT Internal Medicine
PROC: 30233N1 Transfusion of Nonautologous Red Blood Cells into Peripheral Vein, Percutaneous Approach (ICD-10-PCS; principal; 2022-12-22)
DX: S80.11XA Contusion of right lower leg, initial encounter (principal); L03.115 Cellulitis of right lower limb; N17.9 Acute kidney failure, unspecified; D62 Acute posthemorrhagic anemia; E87.20 Acidosis, unspecified; Z68.42 Body mass index [BMI] 45.0-49.9, adult; N25.81 Secondary hyperparathyroidism of renal origin; N18.4 Chronic kidney disease, stage 4 (severe); E87.1 Hypo-osmolality and hyponatremia; F11.20 Opioid dependence, uncomplicated; W18.30XA Fall on same level, unspecified, initial encounter; E10.22 Type 1 diabetes mellitus with diabetic chronic kidney disease; E10.42 Type 1 diabetes mellitus with diabetic polyneuropathy; I12.9 Hypertensive chronic kidney disease with stage 1 through stage 4 chronic kidney disease, or unspecified chronic kidney disease; I45.10 Unspecified right bundle-branch block; E87.5 Hyperkalemia; I95.9 Hypotension, unspecified; M54.9 Dorsalgia, unspecified; G89.29 Other chronic pain; D63.1 Anemia in chronic kidney disease; E10.69 Type 1 diabetes mellitus with other specified complication; E66.01 Morbid (severe) obesity due to excess calories; M19.90 Unspecified osteoarthritis, unspecified site; F41.9 Anxiety disorder, unspecified; F32.A Depression, unspecified; E78.5 Hyperlipidemia, unspecified; F17.210 Nicotine dependence, cigarettes, uncomplicated; E83.39 Other disorders of phosphorus metabolism; G47.33 Obstructive sleep apnea (adult) (pediatric); Z88.0 Allergy status to penicillin; Z79.890 Hormone replacement therapy; Z79.4 Long term (current) use of insulin; Z79.82 Long term (current) use of aspirin; Z90.710 Acquired absence of both cervix and uterus; Z86.19 Personal history of other infectious and parasitic diseases; Z79.899 Other long term (current) drug therapy; J45.909 Unspecified asthma, uncomplicated; Z79.1 Long term (current) use of non-steroidal anti-inflammatories (NSAID)
CPT/HCPCS: 36415; 36430; 71046; 73701; 76770; 80048; 80053; 80069; 82330; 82550; 82947; 83036; 83605; 83735; 84100; 85014; 85018; 85025; 85610; 85730; 86140; 86850; 86900; 86901; 86923; 93005; 93010; 94640; 94644; 94660; 94664; 94762; 96361; 96374-59; 96375-59; 97110; 97162; 97165; 97530; 97535; 99285-25; A9270; C9113; G0463; J0612; J0881; J1170; J1815; J1940; J2405; J7030; J7040; J7799; P9016; P9047; Q2036; Q9967

== ENCOUNTER 2023-01-02 17:55 | Inpatient (IN) | payer MEDICARE, OTHER ==
[~2023-01-02] VITALS: Ht 182.9 cm; Wt 200.0 kg
[~2023-01-02 17:55] MED LIST changes: +ASCO500 PO; +FERSU300 PO; +FURO80 PO; +MIDO5 PO; +PREG150 PO; +ZINC50 M3 PO; +[UNRECOGNIZED DRUG - OTHER] PO
[2023-01-02 20:03] LABS: BASOPHILS ABSOLUTE AUTO 0.01 K/mm3 (0.00-0.23); BASOPHILS PERCENT AUTO 0 % (0-2); EOSINOPHILS ABSOLUTE AUTO 0.14 K/mm3 (0.00-0.68); EOSINOPHILS PERCENT AUTO 2 % (0-6); Hematocrit 22.2 % (33.0-51.0); Hemoglobin 6.9 g/dL (11.5-16.0); IMMATURE GRAN ABSOLUTE AUTO 0.03 K/mm3 (0.00-0.10); IMMATURE GRAN PERCENT AUTO 0 % (0-1); LYMPHOCYTES ABSOLUTE AUTO 0.19 K/mm3 (0.84-5.20); LYMPHOCYTES PERCENT AUTO 3 % (21-46); MONOCYTES ABSOLUTE AUTO 0.44 K/mm3 (0.16-1.47); MONOCYTES PERCENT AUTO 6 % (4-13); Mean Corpuscular HGB 28.9 pg (26.0-34.0); Mean Corpuscular HGB Conc 31.1 g/dL (31.5-36.5); Mean Corpuscular Volume 93 fL (80-100); Mean Platelet Volume 12.4 fL (9.1-12.4); NEUTROPHILS ABSOLUTE AUTO 6.56 K/mm3 (1.96-9.15); NEUTROPHILS PERCENT AUTO 89 % (41-73); Platelet Count 237 K/mm3 (150-400); RDW Coefficient Variation 15.6 % (11.7-14.2); RDW Standard Deviation 53.1 fL (35.1-46.3); Red Blood Cell Count 2.39 M/mm3 (3.80-5.20); White Blood Cell Count 7.37 K/mm3 (4.00-11.30)
[2023-01-02 20:12] LABS: Source, Urine Foley catheter
[2023-01-02 20:18] LABS: Bilirubin, Urine Neg (Neg); Blood, Urine Neg (Neg); Glucose Qualitative, Urine Neg (Neg); Ketones, Urine Neg (Neg); Leukocyte Esterase, Urine 1+ (Neg); Nitrite, Urine Neg (Neg); Protein, Urine 1+ (Neg); Urobilinogen, Urine NORM (Normal)
[2023-01-02 20:20] LABS: Albumin, Blood 3.1 g/dL (3.4-5.0); Albumin/Globulin Ratio 0.8 (0.8-1.8); Bilirubin, Total 0.3 mg/dL (0.1-1.0); Calcium, Blood 7.8 mg/dL (8.5-10.1); Creatinine, Blood 7.55 mg/dL (0.40-1.00); Globulin, Blood 4.1 g/dL (2.2-4.0); Potassium, Blood 6.1 mmol/L (3.5-5.5); Total Protein, Blood 7.2 g/dL (6.4-8.2)
[2023-01-02 20:25] LABS: Appearance, Urine Hazy (Clear); Color, Urine Yellow (P-Yellow)
[2023-01-02 20:28] LABS: Bacteria Many /hpf; Squamous Epithelial Cells Mod /hpf (Few)
[2023-01-03] VITALS (10 sets, daily range): BP systolic 94–153; BP diastolic 55–130
[2023-01-03 00:18] LABS: Bun/Creatinine Ratio 25.3 (12.0-20.0); Calcium, Blood 7.4 mg/dL (8.5-10.1); Creatinine, Blood 7.24 mg/dL (0.40-1.00); Potassium, Blood 5.7 mmol/L (3.5-5.5)
[2023-01-03 08:12] LABS: Hematocrit 23.4 % (33.0-51.0); Hemoglobin 7.4 g/dL (11.5-16.0); Mean Corpuscular HGB 28.9 pg (26.0-34.0); Mean Corpuscular HGB Conc 31.6 g/dL (31.5-36.5); Mean Corpuscular Volume 91 fL (80-100); Platelet Count 216 K/mm3 (150-400); RDW Coefficient Variation 15.7 % (11.7-14.2); RDW Standard Deviation 51.7 fL (35.1-46.3); Red Blood Cell Count 2.56 M/mm3 (3.80-5.20); White Blood Cell Count 5.88 K/mm3 (4.00-11.30)
[2023-01-03 08:35] LABS: Magnesium, Blood 3.2 mg/dL (1.6-2.4)
[2023-01-03 08:43] LABS: BASOPHILS ABSOLUTE MAN 0.05 K/mm3 (0.00-0.23); BASOPHILS PERCENT MAN 1 % (0-2); EOSINOPHILS ABSOLUTE MAN 0.17 K/mm3 (0.00-0.68); EOSINOPHILS PERCENT MAN 3 % (0-6); LYMPHOCYTES % ATYPICAL MANUAL 1 % (0-0); LYMPHOCYTES ABSOLUTE MAN 0.35 K/mm3 (0.84-5.20); LYMPHOCYTES PERCENT MAN 5 % (21-46); MONOCYTES ABSOLUTE MAN 0.23 K/mm3 (0.16-1.47); MONOCYTES PERCENT MAN 4 % (4-13); NEUTROPHILS ABSOLUTE MAN 5.05 K/mm3 (1.96-9.15); SEG NEUTROPHILS PERCENT MAN 86 % (41-73); TOTAL CELLS COUNTED 100
[2023-01-03 08:44] LABS: Albumin/Globulin Ratio 0.8 (0.8-1.8); Bilirubin, Total 0.8 mg/dL (0.1-1.0); Bun/Creatinine Ratio 25.7 (12.0-20.0); Calcium, Blood 7.6 mg/dL (8.5-10.1); Creatinine, Blood 7.16 mg/dL (0.40-1.00); Globulin, Blood 3.8 g/dL (2.2-4.0); Total Protein, Blood 6.8 g/dL (6.4-8.2)
[2023-01-03] MEDS ORDERED: GABA400 PO ×2 (14:47)
[2023-01-03] MEDS ORDERED: Prozac20 MG PO (14:49)
[2023-01-03] MEDS ORDERED: LOSA25 PO (14:50)
[2023-01-03] MEDS ORDERED: POTCHL20ER PO ×2 (14:54)
[2023-01-03] MEDS ORDERED: METO2.5 PO ×2 (14:56)
[2023-01-03] MEDS ORDERED: LISI5 PO ×2 (14:57)
[2023-01-03] MEDS ORDERED: CYCL10 PO ×2 (14:58)
--- NOTE | 2023-01-03 16:57 | NUR ---
SHIFT SUMMARY PT ARRIVED TO PCU AT APPROX. 1115 AND WAS A MAX ASSIST TO PCU BED VIA SLIDER SHEET. SHE IS SOMNOLENT BETWEEN PT CARE AND IS ORIENTED TO SELF, PLACE, AND SITUATION. BP AND HR STABLE. SPO2 MAINTAINED >95% VIA 2L WHEN AWAKE OR HOME TRILOGY WHEN SLEEPING. SPO2 HAS DROPPED TO 77% WHILE ON HOME CPAP THEREFORE JOSE M RESPIRATORY THERAPIST IS CURRENTLY AT BEDSIDE ADJUSTING SETTINGS TO MAINTAIN O2, WILL CONTINUE TO MONITOR. PT HAS REPORTED CHEST PAIN RATED 9-10/10 IN L CHEST AREA, DR. DUARTE MADE AWARE, TROPONIN LAB WAS DRAWN AND WAS NOTED TO 33 NORMAL. ALSO PLEASE SEE EMAR FOR PAIN MANAGEMENT. PHOTOS TAKEN OF RLE AND ARE IN CHART. COCCYX AREA NOTED TO BE RED/BLANCHABLE AND INTACT, MEPILEX DRESSING AND BARRIER CREAM APPLIED, PT IS ALSO FLOATED ON PILLOWS TO KEEP OFF PRESSURE POINTS. POTASSIUM LAB VALUES TRENDED THIS AFTERNOON AND DR. HESS MADE AWARE OF POTASSIUM VALUE BY THIS RN AT APPROX. 1245. PG WAS PLACED IN MERON BY WOOL HAT FLANGERMAGDALENO ALBA AND IS SALINE LOCKED. PT'S MOTHER IS AT BEDSIDE, CALL LIGHT IS W/IN REACH.
[2023-01-03 22:31] LABS: Vancomycin, Random 14.3 ug/mL
[2023-01-04] VITALS (42 sets, daily range): BP systolic 55–941; BP diastolic 36–148
[2023-01-04 05:44] LABS: Hematocrit 20.3 % (33.0-51.0); Hemoglobin 6.3 g/dL (11.5-16.0)
--- NOTE | 2023-01-04 06:13 | NUR ---
End of shift note. Pt has rested between cares. Significant complaints of pain each time staff assists with any movement. Pt has been medicated regularly. Pt seems to only tolerate 25mcg of Fentanyl or has more episodes of apnea, even while wearing the bipap. RLE remains open to air. Escar area looks to be sloughing away, some noted drainage. Ybarra in place. Pt is able to make needs known, call light is within reach.
[2023-01-04 06:15] LABS: Magnesium, Blood 3.2 mg/dL (1.6-2.4)
[2023-01-04 06:34] LABS: Albumin, Blood 3.4 g/dL (3.4-5.0); Anion Gap 13 mmol/L (6-16); CO2, Blood 21 mmol/L (21-32); Calcium, Blood 7.2 mg/dL (8.5-10.1); Chloride, Blood 103 mmol/L (98-108); Creatinine, Blood 6.98 mg/dL (0.40-1.00); Glomerular Filtration Rate 7 (60-); Glucose, Blood 170 mg/dL (70-99); Potassium, Blood 5.5 mmol/L (3.5-5.5); Sodium, Blood 137 mmol/L (136-145)
[2023-01-04 06:41] LABS: Blood Urea Nitrogen 187 mg/dL (8-24); Bun/Creatinine Ratio 26.8 (12.0-20.0)
[2023-01-04 06:43] LABS: Phosphorus, Blood 10.8 mg/dL (2.5-4.9)
--- NOTE | 2023-01-04 14:45 | NUR ---
01/04/23 1445 Malika Arredondo NO PREOP ANTIBIOTICS ORDERED PATIENT RECEIVED MEROPENUM 1GM AT 0953.
--- NOTE | 2023-01-04 16:06 | NUR ---
SHIFT SUMMARY/TRANSFER: PT LETHARGIC, SLEEPS OFTEN WAKES EASILY TO STAFF/FAMILY IN ROOM, ORIENTED TO SELF, LOCATION AND SITUATION. O2 SATS MAINTAINED >93% ON HOME TRILOGY WHILE SLEEPING OR 2 L/MIN NC WHILE AWAKE. SR ON MONITOR W/RATE 80s, PT DENIES CP. PT MEDICATED PER EMAR FOR C/O RLE PAIN. ALL ASSESSMENTS FOR IGNITABLE SOURCES HAVE BEEN NEGATIVE. 1 UNIT PRBC INFUSED PRIOR TO PT GOING TO OR FOR SURGICAL PROCEDURE THIS AFTERNOON. PT SENT TO ICU POST PROCEDURE, REPORT GIVEN TO MARKY Pineda RN IN ICU RECEIVING PT.
[2023-01-04 16:57] LABS: BASOPHILS ABSOLUTE AUTO 0.01 K/mm3 (0.00-0.23); BASOPHILS PERCENT AUTO 0 % (0-2); EOSINOPHILS ABSOLUTE AUTO 0.15 K/mm3 (0.00-0.68); EOSINOPHILS PERCENT AUTO 3 % (0-6); Hemoglobin 6.4 g/dL (11.5-16.0); IMMATURE GRAN ABSOLUTE AUTO 0.04 K/mm3 (0.00-0.10); IMMATURE GRAN PERCENT AUTO 1 % (0-1); LYMPHOCYTES ABSOLUTE AUTO 0.21 K/mm3 (0.84-5.20); LYMPHOCYTES PERCENT AUTO 4 % (21-46); MONOCYTES PERCENT AUTO 7 % (4-13); Mean Corpuscular HGB 29.2 pg (26.0-34.0); Mean Corpuscular Volume 91 fL (80-100); NEUTROPHILS ABSOLUTE AUTO 4.86 K/mm3 (1.96-9.15); NEUTROPHILS PERCENT AUTO 86 % (41-73); Platelet Count 216 K/mm3 (150-400); RDW Coefficient Variation 15.7 % (11.7-14.2); RDW Standard Deviation 52.4 fL (35.1-46.3); Red Blood Cell Count 2.19 M/mm3 (3.80-5.20); White Blood Cell Count 5.67 K/mm3 (4.00-11.30)
[2023-01-04 17:43] LABS: Albumin, Blood 2.9 g/dL (3.4-5.0); Albumin/Globulin Ratio 1.1 (0.8-1.8); Bilirubin, Total 0.8 mg/dL (0.1-1.0); Bun/Creatinine Ratio 25.1 (12.0-20.0); Calcium, Blood 7.1 mg/dL (8.5-10.1); Globulin, Blood 2.6 g/dL (2.2-4.0); Potassium, Blood 5.6 mmol/L (3.5-5.5); Total Protein, Blood 5.5 g/dL (6.4-8.2)
--- NOTE | 2023-01-04 18:16 | NUR ---
DAY SHIFT SUMMARY PT ARRIVED FROM THE OR TO ICU 7 LYING IN BED ASLEEP W NON-REBREATHER MASK AT 15L. PT'S BP VERY SOFT ON ARRIVAL, THIS RN GETTING REEPORT FROM DR. BLOCK THAT THE PT HAD EBL OF 500ML IN SURGERY. PT'S BP REMAINED LOW W MAPS <60 SO PROVIDER CONTACTED AND ORDER FOR PICC LINE AND LEVOPHED OBTAINED. BY THE TIME THE PICC LINE WAS IN PLACE THE PT'S MENTATION HAD IMPROVED SO SHE WAS GIVEN HER 18OO MIDODRINE WELL HER IV ALBUMIN. PT'S BP IMPROVING W THIS NOT REQUIRING THE LEVOPHED AT THIS TIME. PT HAS WOUND VAC ON RLE THAT WAS PLACED IN HE OR, WOUND VAC RUNNING DRAINING BLOODY DISCHARGE INTO COLLECTION CANISTER. BP CURRENTLY STABLE W MAP >65. MONITOR SHOWING SR 80'S W BBB. REPEAT LABS DRAWN IN ICU SHOWING HEMAGLOBIN <7 SO PROVIDER NOTIFIED AND 1 UNIT PRBC'S ORDERED WELL REPEAT H&H AT 2300. PT'S K LEVEL AT 5.6 SO PROVIDER NOTIFIED AND ORDERS TO RECHECK K LEVEL AT [address] HESS CALLED AND ASKED ABOUT CONSULTING IR FOR PERMACATH PLAECEMENT, CONSULT ORDER FOR IR OBTAINED. PT HAS MAINTAINED SPO2 >92% ON HOME TRILOGY W 2L BLEED IN. PT IS ALERT AND COMMUNICATING APPROPRIATELY W STAFF. PT HAS ZAMAN CATHETER THAT IS DRAINING SMALL AMOUNT OF CLEAR YELLOW URINE. PT'S FAMILY AT BEDSIDE. WILL REPORT TO ONCOMING RN.
[2023-01-04 23:15] LABS: Hematocrit 20.6 % (33.0-51.0); Hemoglobin 6.6 g/dL (11.5-16.0)
[2023-01-04 23:45] LABS: Potassium, Blood 5.6 mmol/L (3.5-5.5); Vancomycin, Random 20.6 ug/mL
[2023-01-05] VITALS (103 sets, daily range): BP systolic 76–160; BP diastolic 43–96
[2023-01-05 00:24] LABS: Albumin, Blood 3.4 g/dL (3.4-5.0); Anion Gap 15 mmol/L (6-16); Blood Urea Nitrogen 187 mg/dL (8-24); Bun/Creatinine Ratio 27.6 (12.0-20.0); CO2, Blood 18 mmol/L (21-32); Calcium, Blood 6.8 mg/dL (8.5-10.1); Chloride, Blood 104 mmol/L (98-108); Creatinine, Blood 6.77 mg/dL (0.40-1.00); Glomerular Filtration Rate 7 (60-); Glucose, Blood 235 mg/dL (70-99); Phosphorus, Blood 11.7 mg/dL (2.5-4.9); Sodium, Blood 137 mmol/L (136-145)
--- NOTE | 2023-01-05 01:40 | NUR ---
CALL TO DESHAWN HESS CALLED WITH RESULTS OF 2300 LABS. ORDER FOR RENAL FUNCTION LABS AND TO CALL BACK. ONCE LABS RESULTED, DESHAWN CALLED AGAIN WITH LAB RESULTS. ORDERS RECEIVED TO CHANGE BICARB GTT AND GIVE ONE UNIT PRBC WITH DIALYSIS, AND TO CONFIRM IR CONSULT. ORDER REPEATED BACK AND REVIEWED WITH DR HESS THAT IR HAD BEEN CONSULTED AND HAD NOT SEEN PT YET.
[2023-01-05 04:04] LABS: BASOPHILS ABSOLUTE AUTO 0.01 K/mm3 (0.00-0.23); BASOPHILS PERCENT AUTO 0 % (0-2); EOSINOPHILS ABSOLUTE AUTO 0.04 K/mm3 (0.00-0.68); EOSINOPHILS PERCENT AUTO 1 % (0-6); Hemoglobin 6.2 g/dL (11.5-16.0); IMMATURE GRAN ABSOLUTE AUTO 0.02 K/mm3 (0.00-0.10); IMMATURE GRAN PERCENT AUTO 1 % (0-1); LYMPHOCYTES PERCENT AUTO 5 % (21-46); MONOCYTES ABSOLUTE AUTO 0.29 K/mm3 (0.16-1.47); MONOCYTES PERCENT AUTO 7 % (4-13); Mean Corpuscular HGB 29.4 pg (26.0-34.0); Mean Corpuscular HGB Conc 32.6 g/dL (31.5-36.5); Mean Corpuscular Volume 90 fL (80-100); Mean Platelet Volume 11.3 fL (9.1-12.4); NEUTROPHILS ABSOLUTE AUTO 3.72 K/mm3 (1.96-9.15); NEUTROPHILS PERCENT AUTO 87 % (41-73); Platelet Count 188 K/mm3 (150-400); RDW Coefficient Variation 15.7 % (11.7-14.2); RDW Standard Deviation 51.4 fL (35.1-46.3); Red Blood Cell Count 2.11 M/mm3 (3.80-5.20); White Blood Cell Count 4.28 K/mm3 (4.00-11.30)
[2023-01-05 04:31] LABS: Albumin, Blood 3.3 g/dL (3.4-5.0); Albumin/Globulin Ratio 1.3 (0.8-1.8); Bilirubin, Total 0.6 mg/dL (0.1-1.0); Bun/Creatinine Ratio 26.2 (12.0-20.0); Calcium, Blood 6.8 mg/dL (8.5-10.1); Creatinine, Blood 6.79 mg/dL (0.40-1.00); Globulin, Blood 2.6 g/dL (2.2-4.0); Potassium, Blood 5.6 mmol/L (3.5-5.5); Total Protein, Blood 5.9 g/dL (6.4-8.2)
--- NOTE | 2023-01-05 06:44 | NUR ---
ASSUMED CARE ASSUMED CARE AT 1900. BEDSIDE REPORT DONE AND ONE UNIT OF PRBC STARTED WITH DAY RN. PT INITIALLY CONFUSED, BUT SLOWLY WAS ABLE TO ANSWER ORIENTATION QUESTIONS CORRECTLY. DROWSY BUT FOLLOWS COMMANDS. ABLE TO MOVE ALL EXTREMITIES. BP SOFT. MAP GREATER THEN 65. ON HOME CPAP WITH 2L O2. ON 2L NC WHEN OFF CPAP. SR WITH BBB RATE 90'S. C/O 10/10 PAIN IN BACK. PT HAD DIFFICULTY RATING PAIN AND WAS SLOW TO ANSWER WHEN EDUCATED ON PAIN RATING SCALE. AT TIMES PT WILL STATE "I DON'T KNOW, I DON'T KNOW". PT MEDICATED PER EMAR. WOUND VAC TO RLE, RED DRAINAGE. ZAMAN PATENT AND DRAINING TO GRAVITY. ASSISTED PT ONTO BEDPAN AND PT HAD SMALL BM. PT TRANSFERRED TO BARIATRIC BED.
--- NOTE | 2023-01-05 06:54 | NUR ---
SHIFT SUMMARY NO ACUTE EVENTS T/O NIGHT. MORNING LABS CALLED TO DR HESS. ORDER TO GIVE ONE UNIT PRBC NOW AND ONE UNIT WITH DIALYSIS. PT FORGETFUL AT TIMES, AND FALLS ASLEEP EASILY. MEDICATED FOR PAIN PER EMAR. ON BIPAP MOST OF THE NIGHT. VSS. WOUND VAC TO RLE. ZAMAN PATENT AND DRAINING TO GRAVITY.
--- NOTE | 2023-01-05 10:18 | NUR ---
PT UPDATE PT TO [facility] VIA HOSPITAL BED AT 1016. VS STABLE, PT ON BIPAP OXYGEN SATURATION > 90%.
--- NOTE | 2023-01-05 10:19 | NUR ---
ASSUMPTION OF CARE REPORT RECEIVED FROM NOC RN. PT RESTING IN BED. RESPONSIVE TO VERBAL STIMULI, ANSWERS SOME QUESTIONS APPROPRIATELY AND FOLLOWS SOME COMMANDS. HR 90'S SR, MAP >65. PT ON BIPAP OXYGEN SATURATION > 95%. WOUND VAC IN PLACE TO RLE WITH GOOD SUCTION, NO LEAKING NOTED. PICC LINE TO MERON, PIV TO LAC. ZAMAN PATENT DRIAINING YELLOW URINE TO GRAVITY.
[2023-01-05 14:26] LABS: Hematocrit 23.9 % (33.0-51.0); Hemoglobin 7.9 g/dL (11.5-16.0)
--- NOTE | 2023-01-05 17:27 | NUR ---
WOUND CARE SPOKE WITH DR. EGAN HE IS CONCERNED WITH THE FRIABILITY OF WOUND. HE WOULD LIKE WOUND VAC LEFT IN PLACE WITH FIRST WOUND VAC CHANGE WED 01/07. PRIMARY RN NOTIFIED
--- NOTE | 2023-01-05 18:29 | NUR ---
SHIFT SUMMARY PT RESTING IN BED. RESPONDS TO VERBAL STIMULI, ANSWERS MOST QUESTIONS APPROPRIATELY, ABLE TO MAKE NEEDS KNOWN. HR 90'S SR, BBB. MAP > 65. PT ON BIPAP, OXYGEN SATURATION > 90%. WOUND VAC IN PLACE WITH GOOD SUCTION, NO LEAKING NOTED. PICC LINE TO MERON, PIV TO LAC. ZAMAN IN PLACE DRAINING YELLOW URINE TO GRAVITY. PERMACATH IN PLACE TO RIGHT CHEST. PT TOLERATED DIALYSIS WELL.
--- NOTE | 2023-01-05 22:42 | NUR ---
USED TWO CEILING LIFTS TO BOOST PT UP IN BED. PT TOLERATES THIS FAIR. DID TALK PT THRU PROCEDURE AND MOVEMENT. PT CONTINUES WITH HER HOME TRILOGY. MAINTAINS SATURATIONS > 90 PERCENT. OXYCODONE 10MG ADMINISTERED FOR GENERAL PAIN. PT UPGRADED HER PAIN SCALE FROM 6/10 TO 10/10 SHE WAS RECEIVING HER DOSE OF OXYCODONE. PT HAS NO COMPLAINTS OF PAIN AT THIS TIME.
[2023-01-06] VITALS (37 sets, daily range): BP systolic 86–142; BP diastolic 45–84
[2023-01-06 05:07] LABS: BASOPHILS PERCENT AUTO 0 % (0-2); EOSINOPHILS ABSOLUTE AUTO 0.17 K/mm3 (0.00-0.68); EOSINOPHILS PERCENT AUTO 4 % (0-6); Hematocrit 22.2 % (33.0-51.0); Hemoglobin 7.4 g/dL (11.5-16.0); IMMATURE GRAN ABSOLUTE AUTO 0.03 K/mm3 (0.00-0.10); IMMATURE GRAN PERCENT AUTO 1 % (0-1); LYMPHOCYTES ABSOLUTE AUTO 0.18 K/mm3 (0.84-5.20); LYMPHOCYTES PERCENT AUTO 4 % (21-46); MONOCYTES ABSOLUTE AUTO 0.45 K/mm3 (0.16-1.47); MONOCYTES PERCENT AUTO 9 % (4-13); Mean Corpuscular HGB 29.5 pg (26.0-34.0); Mean Corpuscular HGB Conc 33.3 g/dL (31.5-36.5); Mean Corpuscular Volume 88 fL (80-100); Mean Platelet Volume 11.5 fL (9.1-12.4); NEUTROPHILS ABSOLUTE AUTO 4.09 K/mm3 (1.96-9.15); NEUTROPHILS PERCENT AUTO 83 % (41-73); Platelet Count 182 K/mm3 (150-400); RDW Coefficient Variation 16.3 % (11.7-14.2); RDW Standard Deviation 53.1 fL (35.1-46.3); Red Blood Cell Count 2.51 M/mm3 (3.80-5.20); White Blood Cell Count 4.92 K/mm3 (4.00-11.30)
[2023-01-06 05:56] LABS: Alanine Aminotransfer (ALT/SGP 10 U/L (12-78); Albumin, Blood 3.1 g/dL (3.4-5.0); Alk Phos 78 U/L (50-136); Anion Gap 11 mmol/L (6-16); Aspartate Aminotrans (AST/SGOT 20 U/L (12-37); Bilirubin, Total 0.6 mg/dL (0.1-1.0); Blood Urea Nitrogen 127 mg/dL (8-24); Bun/Creatinine Ratio 24.5 (12.0-20.0); CO2, Blood 25 mmol/L (21-32); Calcium, Blood 7.5 mg/dL (8.5-10.1); Chloride, Blood 105 mmol/L (98-108); Creatinine, Blood 5.19 mg/dL (0.40-1.00); Globulin, Blood 3.1 g/dL (2.2-4.0); Glomerular Filtration Rate 9 (60-); Glucose, Blood 148 mg/dL (70-99); Magnesium, Blood 2.7 mg/dL (1.6-2.4); Potassium, Blood 4.4 mmol/L (3.5-5.5); Sodium, Blood 141 mmol/L (136-145); Total Protein, Blood 6.2 g/dL (6.4-8.2); Vancomycin, Random 23.3 ug/mL
[2023-01-06 05:59] LABS: Phosphorus, Blood 8.6 mg/dL (2.5-4.9)
--- NOTE | 2023-01-06 06:00 | NUR ---
PT HAS CONTINUED WEARING HER TRILOGY MASK THROUGHOUT THE NIGHT. PT HAS IMPROVED IN TOLERANCE OF TURNS IN BED. WOUND VAC CONTINUES WITH SAIGEOUS DRAINAGE. DRESSING OVER VAC CDI. DR HESS HAS COME IN TO SEE PT, AND TOLD PT THAT SHE WOULD BE RECEIVING DIALYSIS AGAIN TODAY. WILL CONTINUE TO MONITOR PT, AND WILL REPORT OFF TO ONCOMING RN.
[2023-01-06 11:58] LABS: PCO2 Arterial 48.4 mmHg (35-45); PO2 Arterial 77.3 mmHg (80-100); pH Blood Arterial 7.35 (7.35-7.45)
--- NOTE | 2023-01-06 17:55 | NUR ---
SHIFT SUMMARY NO ACUTE CHANGES THIS SHIFT. PT HAS REMAINED LETHARGIC THROUHGOUT THE SHIFT, BUT DOES AWAKEN BREIFLY TO VERBAL STIMULI. PT IS ALERT TO SELF, BUT IS CONFUSED AND UNABLE TO ANSWER MOST QUESTIONS. PT ON HOME TRILOGY BIPAP WITH 4L O2 BLEED IN MOST OF THIS SHIFT. PT PLACED ON 3L O2 NC FOR SHORT BREAKS THIS AFTERNOON. PICC TO MERON WITH CPN INFUSING AT 75 ML/HR. WOUNDS/SWELLING TO BLE'S REMAINS UNCHANGED. WOUND VAC TO RLE REMAINS INTACT WITH ORDERED SUCTION PRESSURE. MINIMAL OUTPUT NOTED FROM WOUND VAC. DP PULSES REMAIN PRESENT VIA DOPPLER. ZAMAN REMAINS IN PLACE WITH MINIMAL OUTPUT NOTED THIS SHIFT. PT RECIEVED DIALYSIS THIS MORNING. PERMACATH TO RIGHT CHEST REMAINS C/D/I. VITAL SIGNS STABLE. WILL CONTINUE TO MONITOR AND REPORT OFF TO ONCOMING RN.
--- NOTE | 2023-01-06 18:55 | NUR ---
RHYTHM CHANGE PT NOTED TO BE CRYING OUT AND WIDE COMPLEX RHYTHM CHANGE NOTED ON MONITOR THAT WAS SELF LIMITING, THEN PT QUICKLY RETURNED TO BASELINE ECG RHYTHM. PT DENIES CHEST PAIN OR TIGHTNESS, BUT COMPLAINS OF BACK AND LEG PAIN. EKG DONE AND CAPTURED RHYTHM CHANGE. DR PEPPER NOTIFIED. LAB ORDERS RECIEVED. WILL CONTINUE TO MONITOR.
--- NOTE | 2023-01-06 19:21 | NUR ---
ASSUMED CARE OF PT AT 1900. REPORT RECEIVED. PT PRESENTS IN BED. ON NASAL CANNULA MAINTAINING > 90 PERCENT SATURATIONS. PT STATES THAT SHE IS HAVING PAIN. HAS BEEN MEDICATED WITH FENTANYL BY OFFGOING RN. WILL AWAIT RESULTS. ELECTROLYTES DRAWN PER NEW ORDER FROM DR PEPPER SECONDARY TO PREVIOUS RHYTHM CHANGE. PENDING RESULTS. PT CURRENTLY SLEEPING IN BED. WILL REVIEW CHART AND PLAN OF CARE FOR THIS PT.
[2023-01-06 20:09] LABS: HBSAG SCREEN Negative (Negative); HCV AB Non Reactive (Non Reactive); HEP A AB, IGM Negative (Negative); HEP B CORE AB, IGM Negative (Negative)
[2023-01-06 20:09] LABS: Albumin, Blood 3.4 g/dL (3.4-5.0); Albumin/Globulin Ratio 1.1 (0.8-1.8); Bilirubin, Total 0.9 mg/dL (0.1-1.0); Bun/Creatinine Ratio 21.9 (12.0-20.0); Creatinine, Blood 3.61 mg/dL (0.40-1.00); Globulin, Blood 3.1 g/dL (2.2-4.0); Magnesium, Blood 2.3 mg/dL (1.6-2.4); Phosphorus, Blood 6.2 mg/dL (2.5-4.9); Total Protein, Blood 6.5 g/dL (6.4-8.2)
--- NOTE | 2023-01-06 22:13 | NUR ---
PT RETURNS TO WIDE COMPLEX TACHYCARDIA. EKG DONE TO CAPTURE RHYTHM. ADDED TROPONIN TO LABS DRAWN. ELEVATED TROPONIN RECEIVED. CALL MADE TO VLADIMIR WIGGINS NP-HOSPITALIST. ORDERS RECEIVED. PT DOES HAVE NAUSEA WITH SMALL EMESIS PRIOR TO RHYTHM CHANGE. PT CURRENTLY BACK TO HER INTRINSIC RHYTHM SHE HAD BEFORE. WILL CONTINUE TO MONITOR.
[2023-01-06 23:54] LABS: Vancomycin, Random 18.6 ug/mL
[2023-01-07] VITALS (27 sets, daily range): BP systolic 93–146; BP diastolic 47–73
[2023-01-07 04:31] LABS: Hematocrit 24.1 % (33.0-51.0); Hemoglobin 7.6 g/dL (11.5-16.0); Mean Corpuscular HGB 28.8 pg (26.0-34.0); Mean Corpuscular HGB Conc 31.5 g/dL (31.5-36.5); Mean Corpuscular Volume 91 fL (80-100); Mean Platelet Volume 11.3 fL (9.1-12.4); Platelet Count 169 K/mm3 (150-400); RDW Coefficient Variation 15.7 % (11.7-14.2); RDW Standard Deviation 52.1 fL (35.1-46.3); Red Blood Cell Count 2.64 M/mm3 (3.80-5.20); White Blood Cell Count 3.85 K/mm3 (4.00-11.30)
[2023-01-07 04:52] LABS: Ferritin, Serum 355 ng/mL (8-252); Iron Serum 15 ug/dL (50-170); Magnesium, Blood 2.4 mg/dL (1.6-2.4); Percent Saturation 11.9 % (15.0-50.0); Total Iron Binding Capacity 126 ug/dL (250-450)
[2023-01-07 04:53] LABS: Anion Gap 14 mmol/L (6-16); Blood Urea Nitrogen 84 mg/dL (8-24); Bun/Creatinine Ratio 22.3 (12.0-20.0); CO2, Blood 24 mmol/L (21-32); Calcium, Blood 7.6 mg/dL (8.5-10.1); Chloride, Blood 99 mmol/L (98-108); Creatinine, Blood 3.77 mg/dL (0.40-1.00); Glomerular Filtration Rate 14 (60-); Glucose, Blood 344 mg/dL (70-99); Phosphorus, Blood 6.9 mg/dL (2.5-4.9); Potassium, Blood 4.1 mmol/L (3.5-5.5); Sodium, Blood 137 mmol/L (136-145); Triglycerides 129 mg/dL (30-160)
--- NOTE | 2023-01-07 06:44 | NUR ---
PT HAS PULLED OFF HER MASK FOR HER TRILOGY SEVERAL TIMES THIS NIGHT WITHOUT REQUESTING SUPPLEMENTAL OXYGEN. PT DOES DESATURATE TO 85-87 PERCENT ON ROOM AIR. PT ALSO HAS SCRATCHED AT HER SCABS ON HER ARMS, AND HER CHEST WHICH CAUSED HER TO BLEED. EACH SITE NOW BANDAGED. CAUTIONED PT ABOUT REOPENING WOUNDS. PT TEARFUL THIS NIGHT AND STATES SHE FEELS SCARED. ENCOURAGED PT TO DISCUSS HER FEARS, AND WAYS TO ALLIEVIATE THEM. PT HAS BEEN MEDICATED ONCE WITH OXYCODONE 10MG FOR GENERAL PAIN. PT HAS REMAINED IN SINUS RHTHYM WITH BBB. TROPONINS HAD TRENDED DOWN. INFORMED PT THAT SHE WOULD BE HAVING AN ECHOCARDIOGRAM DONE THIS DAY. DR HESS HAS COME IN TO SEE PT. PT IS TO HAVE DIALYSIS AGAIN TODAY. WILL CONTINUE TO MONITOR PT, AND WILL REPORT OFF TO ONCOMING RN.
--- NOTE | 2023-01-07 08:19 | NUR ---
ASSUMED CARE REPORT FROM LAURY DOLAN AT 0700. PT RESTING IN BED. WAKES c VERBAL STIMULI. A&OX 2, FOLLOWS SIMPLE COMMANDS. TEARFUL AND ANXIOUS. C/O 10/10 GENERALIZED PAIN, MEDICATED c FENTANYL ORDERED c RELIEF. PT APPEARS TO RETURN TO SLEEP WHEN UNDISTURBED. LUNGS CLEAR, DIM IN BASES, NON PRODUCTIVE COUGH. 2L VIA NC. O2 SATS >95%. PT ALSO HAS HOME TRILOGY AT BEDSIDE. BBB, RATE 80-90'S. BP STABLE. 2+ EDEMA TO BLE, PT HAS SCABING AND ECCHYMOSIS OVER MULTIPLE AREAS OF BODY. BLE HAS DISCOLORATION, SCABS AND SCALING. WOUND VAC TO RLE, DUE TO BE CHANGED THIS SHIFT. WOUND VAC c -125 MMHG SUCTION. BLOODY DRAINAGE IN VAC. COCCYX RED BUT BLANCHABLE. q2 TURNS. ENCOURAGED PT TO PARTICIPATE IN CARE AND c PO INTAKE. PT REFUSING. PICC TO RUE, DRESSING TO BE CHANGED THIS SHIFT. WILL CONTINUE TO MONITOR.
[2023-01-07 11:53] LABS: Vancomycin, Random 30.9 ug/mL
--- NOTE | 2023-01-07 17:02 | NUR ---
WOUND CARE WOUND VAC DRESSING CHANGED. PT PREMEDICATED FOR PAIN. WOUND VAC TURNED OFF AND NORMAL SALINE TO FOAM TO RELEASE SUCTION FOR 30MIN BEFORE REMOVING. TWO PIECES OF BLACK FOAM REMOVED WOUND CLEANSED WITH NORMAL SALINE. VERBAL ORDER RECIEVED FROM DR. TOMAS GRIFFITH TO USE SILVER NITRATE FOR EXCESS BLEEDING 3 STICKS USED FOR FRIABLE TISSUE. PERIWOUND WINDOWPANED WITH TRANSPARENT FILM XEROFORM PLACED TO WOUND BED TO PROTECT FRIABLE TISSUE, FOUR PIECES BLACK FOAM REAPPLIED. VAC SET TO CONTINUOUS 120MMHG. PT EMOTIONALY LABILE AT TIMES BUT EASILY DISTRACTED. PT WITH CHRONIC STAGE 3 PI TO R CALCANEUS. RECOMMEND CALCIUM ALGINATE TO WOUND BED, COVER BORDERED FOAM AND HEEL PROTECTOR. PHOTO AND ASSESSMENTS IN HARD CHART. WOUND RN WILL FOLLOW
--- NOTE | 2023-01-07 17:39 | NUR ---
SHIFT SUMMARY NO ACUTE CHANGES THIS SHIFT. STATUS CHANGED TO MED c TELE THIS SHIFT. DIALYSIS COMPLETED, TOLERATED WELL, 3L OFF. WOUND VAC CHANGED BY NIKOLE ORTHOPEDIC SURGEON. PICS UPDATED IN CHART. DRESSING PLACED TO RIGHT HEEL PER RECOMMENDATIONS. PT TEARFUL c CARE, RELUCTANT TO PARTICIPATE, ENCOURAGED. PT/OT TO SEE PT TOMORROW. PT REMAINED ON 2L VIA NC. VSS. CPN INFUSING, ATTEMPTED TO GIVE PT NEPRO, VOMITED. PAIN DIFFICULT TO CONTROL THIS SHIFT. STATES PAIN 10/10. DOES SLEEP WHEN UNDISTURBED. BED BATH COMPLETE. WILL CONTINUE TO MONITOR UNTIL REPORT TO ONCOMING NURSE.
--- NOTE | 2023-01-07 20:00 | NUR ---
ASSUMED CARE OF PT AT 1900. REPORT RECEIVED. PT PRESENTS IN BED. ALERT TO VERBAL. DISCUSSED PLAN OF CARE FOR THIS PT. WOUND VAC INTACT AND AT GOAL RATE TO RIGHT LOWER EXTREMITY. PT DOES DEMONSTRATE SOME SHORT TERM MEMORY DEFICITS. WILL REVIEW CHART AND PLAN OF CARE FOR THIS PT.
[2023-01-08] VITALS (18 sets, daily range): BP systolic 105–147; BP diastolic 54–119
[2023-01-08 05:17] LABS: Hematocrit 24.4 % (33.0-51.0); Hemoglobin 7.9 g/dL (11.5-16.0)
[2023-01-08 05:46] LABS: Albumin, Blood 3.2 g/dL (3.4-5.0); Anion Gap 13 mmol/L (6-16); Blood Urea Nitrogen 55 mg/dL (8-24); Bun/Creatinine Ratio 18.5 (12.0-20.0); CO2, Blood 25 mmol/L (21-32); Calcium, Blood 8.4 mg/dL (8.5-10.1); Chloride, Blood 96 mmol/L (98-108); Creatinine, Blood 2.97 mg/dL (0.40-1.00); Glomerular Filtration Rate 18 (60-); Glucose, Blood 429 mg/dL (70-99); Magnesium, Blood 2.1 mg/dL (1.6-2.4); Potassium, Blood 3.6 mmol/L (3.5-5.5); Sodium, Blood 134 mmol/L (136-145)
--- NOTE | 2023-01-08 06:45 | NUR ---
PT HAS BEEN REMOVING HER OXIMETER, AND HER OXYGEN AT TIMES THROUGHOUT THE NIGHT. HAS BEEN REMINDED THAT BY DOING SO HER SATURATIONS WERE RUNNING LOW. PT DOES VERBALLY AGREE TO KEEP OXYGEN ON AT THIS TIME. NO NAUSEA THIS NIGHT. BLOOD GLUCOSES HAVE REMAINED HIGH. DR HESS COMES IN TO SEE PT. DOES STATE THAT SHE IS TO HAVE DIALYSIS TODAY. WILL CONTINUE TO MONITOR PT, AND WILL REPORT OFF TO ONCOMING RN.
--- NOTE | 2023-01-08 07:00 | NUR ---
ASSUMPTION OF CARE: ASSUMED CARE OF PATIENT WITH FERNANDO SOTO. PATIENT SLEEPING SOUNDLY IN BED. AWAKENS TO VERBAL STIMULI. PATIENT'S SPO2 >92% ON 2L VIA NC. BREATHING IS EVENING AND UNLABORED. PATIENT SNORING WHEN ASLEEP. PATIENTS HR IN THE 70S TO 80S. SBP IN THE 130S. PATIENT IS SLOW TO RESPOND. PATIENT IS TEARFUL THIS AM, STATING "I HATE THIS". PATIENT HAD DIFFICULTY ARTICULATING BEYOND THIS STATEMENT. PATIENT IS HESITANT TO PARTICIPATE IN CARE. PROVIDED SUPPORT AND ENCOURAGEMENT.
[2023-01-08 09:04] LABS: Vancomycin, Random 20.6 ug/mL
--- NOTE | 2023-01-08 11:10 | NUR ---
TRANSFER OF CARE TO SURGICAL UNIT: PATIENT TRANSFERRED TO SURGICAL UNIT POST DIALYSIS. REPORT CALLED TO MGADALENO DUBON. PATIENT BELONGINGS TRANSFERRED TO ROOM 227.
--- NOTE | 2023-01-08 14:00 | NUR ---
MARIUSZ FROM PHYSICAL THERAPY ATTEMPTED TO SEE PT. MARIUSZ REPORTED THAT PT STATES SHE IS HEARING CATS. SHE IS ALERT AND ORIENTED X2-3, SHE NEEDED REORIENTED TO PLACE.
--- NOTE | 2023-01-08 15:55 | NUR ---
PT ARRIVED TO THE ROOM FROM DIALYSIS AT APPROXIMATELY 1110. PT RESTING COMFORTABLY IN BED. SHE DENIES PAIN. CALL LIGHT WITHIN REACH.
--- NOTE | 2023-01-08 15:58 | NUR ---
DR. PEPPER NOTIFIED OF BLOOD GLUCOSE LEVEL OF 353 WITH LUNCH AND THAT SHE WAS COVERED WITH LOW SLIDING SCALE PER DR. PEPPER SHE WOULD LIKE TO CONTINUE WITH LOW SLIDING SCALE COVERAGE.
--- NOTE | 2023-01-08 19:41 | NUR ---
SHIFT SUMMARY PT'S BLOOD GLUCOSE HAS BEEN ELEVATED AT LUNCH AND DINNER, DR. PEPPER NOTIFIED AND CORRECTION SCALE INCREASED. PT STILL DECLINING MEALS, SHE STATES SHE HAS A DECREASED APPETITE, DENIES NAUSEA. PT HAS DECLINED PAIN SINCE ARRIVAL TO THE ROOM. PT HAS HAD MILD AUDITORY HALLUCINATIONS AND HAS BEEN ORIENTED X2-3, DR. PEPPER NOTIFIED. PT RESTING IN BED CALL LIGHT WITHIN REACH.
[2023-01-09] VITALS (16 sets, daily range): BP systolic 74–164; BP diastolic 34–84
[2023-01-09 05:29] LABS: Hematocrit 23.4 % (33.0-51.0); Hemoglobin 7.5 g/dL (11.5-16.0)
[2023-01-09 07:17] LABS: Albumin, Blood 3.4 g/dL (3.4-5.0); Anion Gap 8 mmol/L (6-16); Blood Urea Nitrogen 57 mg/dL (8-24); Bun/Creatinine Ratio 15.8 (12.0-20.0); CO2, Blood 29 mmol/L (21-32); Calcium, Blood 8.3 mg/dL (8.5-10.1); Chloride, Blood 98 mmol/L (98-108); Glomerular Filtration Rate 14 (60-); Glucose, Blood 436 mg/dL (70-99); Phosphorus, Blood 3.3 mg/dL (2.5-4.9); Potassium, Blood 3.4 mmol/L (3.5-5.5); Sodium, Blood 135 mmol/L (136-145); Vancomycin, Random 26.7 ug/mL
--- NOTE | 2023-01-09 08:40 | NUR ---
SUMMARY PT DEPRESSED TONIGHT. REASSURANCE GIVEN.
--- NOTE | 2023-01-09 09:44 | NUR ---
DIALYSIS- PT CALLED STAFF OVER TO HER TO LET US KNOW THAT SHE WAS SEEING A TALL BLONDE MAN AT THE FOOT OF HER BED. SHE VERBALIZED THAT SHE KNEW THAT SHE WAS HALLUCINATING, AND STATED THAT IT WASNT BOTHERING HER BUT SHE JUST WANTED TO LET US KNOW- RELAYED THIS INFORMATION TO HER FLOOR NURSE.
--- NOTE | 2023-01-09 12:35 | NUR ---
PT BACK TO ROOM FROM DIALYSIS.
--- NOTE | 2023-01-09 15:30 | NUR ---
TELE REPORTED PT HAVING PROLONGED QT, NOTIFIED DR PEPPER.
--- NOTE | 2023-01-09 15:58 | NUR ---
WOUND CARE RLE WOUND VAC CHANGED PER ORDER. FOUR PIECES BLACK FOAM AND XEROFORM REMOVED, WOUND CLEANSED WITH NS, THREE PIECES BLACK FOAM REAPPLIED. NOTED THAT WOUND VAC SET TO 140MMHG, SET TO ORDERED CONTINUOUS 120MMHG. PT TOLERATED WELL
[2023-01-09 16:42] LABS: Magnesium, Blood 1.6 mg/dL (1.6-2.4)
[2023-01-09 16:44] LABS: Thyroid Stimulating Hormone 6.28 uIU/mL (0.360-4.800)
[2023-01-09 16:45] LABS: Phosphorus, Blood 1.8 mg/dL (2.5-4.9); Potassium, Blood 3.2 mmol/L (3.5-5.5)
--- NOTE | 2023-01-09 17:17 | NUR ---
SUMMARY NO ACUTE CHANGES T/O SHIFT. PT HAD DIALYSIS THIS AM, AT WHICH TIME DIALYSIS REPORTED PT STATED HAVING HALLUCINATIONS. PT WAS CALM AND AWARE THEY WERE HALLUCINATIONS. HAS NOT REPORTED ANY HALLUCINATIONS SINCE ARRIVING BACK FROM DIALYSIS. WOUND VAC DRESSING CHANGED BY KEVIN/STARCH TREATING ASSISTANT THIS AFTERNOON. PT HAS ORDERS TO ADVANCE DIET TOLERATED; PLANS ON EATING DINNER FAMILY BRINGS IN. DISCUSSED ADVANCING DIET FROM CLEARS TO SOLID FOOD; PT BECAME DEFENSIVE AND THOUGHT RN WAS "JUDGING" HER. EXPLAINED NO JUDGMENT WAS INVOLVED, JUST WANTED TO CLARIFY THAT PT FELT COMFORTABLE ADVANCING TO REGULAR CONSISTENCY FOOD WHEN HAS TAKEN MINIMAL CLEAR LIQUID IN PUT T/O DAY. COVERED CBGS T/O DAY PER ORDERS. CALL LIGHT IN REACH.
[2023-01-10 04:15] VITALS: BP 146/89
[2023-01-10 05:35] LABS: Hematocrit 22.8 % (33.0-51.0); Hemoglobin 7.3 g/dL (11.5-16.0)
[2023-01-10 06:15] LABS: Albumin, Blood 3.3 g/dL (3.4-5.0); Anion Gap 5 mmol/L (6-16); Blood Urea Nitrogen 48 mg/dL (8-24); Bun/Creatinine Ratio 15.1 (12.0-20.0); CO2, Blood 31 mmol/L (21-32); Calcium, Blood 8.4 mg/dL (8.5-10.1); Chloride, Blood 101 mmol/L (98-108); Creatinine, Blood 3.18 mg/dL (0.40-1.00); Glomerular Filtration Rate 17 (60-); Glucose, Blood 388 mg/dL (70-99); Magnesium, Blood 1.9 mg/dL (1.6-2.4); Phosphorus, Blood 2.2 mg/dL (2.5-4.9); Potassium, Blood 3.3 mmol/L (3.5-5.5); Sodium, Blood 137 mmol/L (136-145)
[2023-01-10 07:48] VITALS: BP 145/69
--- NOTE | 2023-01-10 08:11 | NUR ---
SUMMARY POD #6 I&D R.LEG NO CHANGES NOTED THROUGH THE NIGHT, PT CONTINUES TO HAVE OCCASIONAL CONFUSION, VSS, CPAP WHILE SLEEPING, PAIN WNL, WOUND VAC INTACT, RESTING QUIETLY THIS AM, CALL LIGHT IN REACH, REPORT GIVEN TO DUNCAN DOLAN.
--- NOTE | 2023-01-10 12:44 | NUR ---
BLOOD SUGAR: PT HAS >400 BS THIS AFTERNOON. MD NOTIFIED. TPN STOPPED. 2 EXTRA UNITS GIVEN PLUS SLIDING SCALE.
[2023-01-10 14:54] VITALS: BP 129/86
--- NOTE | 2023-01-10 18:13 | NUR ---
PT HAS BEEN STABLE THIS SHIFT. POD #6. WOUND VAC REMAINS INTACT WITH SCANT SEROSANGUINOUS DRAINAGE. CONTACT ISO FOR MRSA. NO DIALYSIS THIS SHIFT. LAB WORK TO REPEAT IN AM. DIALYSIS CATH TO RCW WNL. PICC INFUSING AT TKO. CPN DC'D, BLOOD SUGARS ELEVATED. PT EATING AND DRINKING APPROPRIATELY. PT WORKED WITH THERAPY TO SIT UP IN CHAIR. PT 2-3 ASSIST BACK TO BED WITH LIFT. BL HEEL DRESSINGS CDI. PT VOIDING WELL. BM TODAY. PT USES [facility] FOR URGENCY INCONTINENCE. PT CALLS APPROPRIATELY NEEDED.
[2023-01-10 19:56] VITALS: BP 97/53
[2023-01-10 20:02] VITALS: BP 101/60
--- NOTE | 2023-01-10 22:10 | NUR ---
DISCHARGE PT EDUCATED WITH POST OP EDUCATION PACKET. PT STATED ALL QUESTIONS HAD BEEN ANSWERED AND THAT SHE FELT SAFE TO DISCHARGE HOME. PT REPORTS BEING ABLE TO AMBULATE AND TOLLERATE PERFORMING PERSONAL ADL'S. NO IV LINE PRESENT. TELE REMOVED. PT VOIDING, PASSING FLATTUS, AND TOLLERATING PO INTAKE. INSTRUCTED TO CALL [facility] OFFICE FOR FOLLOWUP. EDUCATED ON HOME PAIN MEDICATION. FRIEND ARRIVED TO ASSIT PT WITH [facility]. SENIOR MANAGER [employer]GERS [employer] ACQUISITIONS WHEELED PT OUT TO CAR.
[2023-01-11] VITALS (22 sets, daily range): BP systolic 81–151; BP diastolic 36–68
[2023-01-11 04:18] LABS: Hematocrit 22.2 % (33.0-51.0); Hemoglobin 7.1 g/dL (11.5-16.0); Mean Corpuscular Volume 91 fL (80-100); Mean Platelet Volume 11.6 fL (9.1-12.4); Platelet Count 198 K/mm3 (150-400); RDW Coefficient Variation 14.8 % (11.7-14.2); RDW Standard Deviation 48.2 fL (35.1-46.3); Red Blood Cell Count 2.45 M/mm3 (3.80-5.20); White Blood Cell Count 5.42 K/mm3 (4.00-11.30)
[2023-01-11 04:40] LABS: Albumin, Blood 3.3 g/dL (3.4-5.0); Anion Gap 8 mmol/L (6-16); Blood Urea Nitrogen 62 mg/dL (8-24); Bun/Creatinine Ratio 14.9 (12.0-20.0); CO2, Blood 28 mmol/L (21-32); Calcium, Blood 8.3 mg/dL (8.5-10.1); Chloride, Blood 99 mmol/L (98-108); Creatinine, Blood 4.17 mg/dL (0.40-1.00); Glomerular Filtration Rate 12 (60-); Glucose, Blood 154 mg/dL (70-99); Magnesium, Blood 1.8 mg/dL (1.6-2.4); Phosphorus, Blood 2.6 mg/dL (2.5-4.9); Potassium, Blood 3.3 mmol/L (3.5-5.5); Sodium, Blood 135 mmol/L (136-145)
--- NOTE | 2023-01-11 05:08 | NUR ---
SHIFT SUMMARY POD 7 I&D OF R LOWER EXTREMITY/ PATEL. WOUND VAC IN PLACE. VS WNL FOR PT. NO ACUTE CHANGES OVERNIGHT. PT SLEPT THROUGHOUT MOST OF THE NIGHT, COMPLIANT WITH CPAP. PT OFFERED ATTENS BRIEF CHANGE/CHECK, PT DENIED, SHE STATED "I FEEL DRY." PT DENIED REPOSITIONING IN BED, SHE DID NOT AMBULATE THIS SHIFT. CALL LIGHT WITHIN REACH, BED IN LOWEST POSITION, WILL REPORT TO DAY RN.
--- NOTE | 2023-01-11 16:20 | NUR ---
SHIFT SUMMARY: POD 7 RIGHT PATEL I&D PATIENT IS A&OX4. PAIN IS MANAGED WITH PO OXY. SHE IS TOLERATING PO INTAKE. PATIENT DID HAVE DIALYSIS THIS MORNING. HER PICC LINE IN HER MERON IS SALINE LOCKED. HER WOUND VAC ON THE RIGHT PATEL HAS THE BLACK FOAM COMPRESSED AND SUCTIONING. SHE IS ABLE TO WIGGLE ALL FINGERS AND TOES WHEN ASKED. PATIENT HAS ATTENDS IN PLACE. WHEN ASKED TO HAVE ATTENDS CHANGED SHE STATES "I DON'T THINK I'M WET YET". SHE IS LAYING IN BED WITH CALL LIGHT IN REACH.
--- NOTE | 2023-01-11 23:08 | NUR ---
NAUSEA PT REPORTED NAUSEA. GIVEN IV ZOFRAN, PT REPORTS RELIEF. PT REPORTED NAUSEA THIS AM.
[2023-01-12] VITALS (16 sets, daily range): BP systolic 90–134; BP diastolic 39–98
[2023-01-12 04:19] LABS: Hematocrit 22.1 % (33.0-51.0)
--- NOTE | 2023-01-12 04:35 | NUR ---
SHIFT SUMMARY POD 8 R PATEL I&D. NO ACUTE CHNAGES OVERNIGHT. VS WNL FOR PT. WOUND VAC RETAINS TIGHT SEAL/SUCTION, DRAINING BROWN LIQUID. 2 BILAT MEPILEX'S PLACES ON LOWER SHINS DUE TO DOG SCRATCHES. PT SLEPT THROUGHOUT MOST OF THE NIGHT, BIPAP COMPLIANT. TOLERATING PO INTAKE. ATTENS IN PLACE, HER SON HELPED HER CHNAGE INTO A NEW ONE AT THE BEGINNING OF THE SHIFT. BED IN LOWEST POSITION, CALL LIGHT WITHIN REACH, WILL REPORT TO DAY RN.
[2023-01-12 04:48] LABS: Albumin, Blood 3.6 g/dL (3.4-5.0); Anion Gap 7 mmol/L (6-16); Blood Urea Nitrogen 50 mg/dL (8-24); Bun/Creatinine Ratio 13.2 (12.0-20.0); CO2, Blood 29 mmol/L (21-32); Calcium, Blood 8.3 mg/dL (8.5-10.1); Chloride, Blood 100 mmol/L (98-108); Creatinine, Blood 3.79 mg/dL (0.40-1.00); Glomerular Filtration Rate 14 (60-); Glucose, Blood 331 mg/dL (70-99); Magnesium, Blood 2.1 mg/dL (1.6-2.4); Phosphorus, Blood 3.5 mg/dL (2.5-4.9); Potassium, Blood 3.7 mmol/L (3.5-5.5); Sodium, Blood 136 mmol/L (136-145)
--- NOTE | 2023-01-12 13:22 | NUR ---
RESEARCH ANALYST NIKOLE HERE TO CHANGE PT'S WOUND VAC DRESSING BUT PT REFUSED. HOME HEALTH IS SCHEDULED TO SEE PT ON THURSDAY FOR DRESSING CHANGE PER MAGDALENO AGUSTIN.
[2023-01-12] MEDS ORDERED: DOXY100 PO (14:09)
[2023-01-12] MEDS ORDERED: METO25 PO ×2 (14:09)
--- NOTE | 2023-01-12 14:24 | NUR ---
WOUND CARE PT DECLINES WOUND VAC DRESSING CHANGE. PT REPORTS NEED TO MAKE IT TO DIALYSIS OUTPATIENT CLINIC AFTER DISCHARGE AND BEFORE HER SON NEEDS TO BE AT WORK. EDUCATED ON WOUND VAC DRESSING CHANGE SCHEDULE AND RISK. PT VERBALIZED UNDERSTANDING. SHE REPORTS HH WILL CHANGE WED AND THEN SHE WILL BE "BACK ON SCHEDULE"
--- NOTE | 2023-01-12 15:08 | NUR ---
DISCHARGE SUMMARY PT A&OX4, VSS/RA, GOYO PO, DIALYSIS TODAY, PAIN MANAGED, STAND PIVOT TO WC, PICC LINE REMOVED. LEFT FLOOR VIA PERSONAL WC TO GO HOME WITH SON, WITH ALL PERSONAL POSSESSIONS INCLUDING WOUND VAC. NOÉ TO DELIVER FWW AT PT HOME.
== END 2023-01-12 14:36 | disposition home or self-care (01) | DRG 280 ==
LOC: ER 17:55 → ERHOLD 21:06 → PCU 21:06 → SURS 21:06 → ICUE 21:06 → PCU 01-03 11:21 → ICUE 01-04 15:22 → SURS 01-08 11:24
PROVIDERS: Emergency Medicine; Internal Medicine; Internal Medicine Nephrology; Nurse Practitioner Acute Care; Orthopaedic Surgery; ADMIT Student in an Organized Health Care Education/Training Program
PROC: 0Y9H0ZZ Drainage of Right Lower Leg, Open Approach (ICD-10-PCS; 2023-01-04)
PROC: 0HBKXZZ Excision of Right Lower Leg Skin, External Approach (ICD-10-PCS; 2023-01-04)
PROC: 0T9B70Z Drainage of Bladder with Drainage Device, Via Natural or Artificial Opening (ICD-10-PCS; 2023-01-04)
PROC: 30233N1 Transfusion of Nonautologous Red Blood Cells into Peripheral Vein, Percutaneous Approach (ICD-10-PCS; principal; 2023-01-05)
PROC: 0JH63XZ Insertion of Tunneled Vascular Access Device into Chest Subcutaneous Tissue and Fascia, Percutaneous Approach (ICD-10-PCS; 2023-01-05)
PROC: 02HV33Z Insertion of Infusion Device into Superior Vena Cava, Percutaneous Approach (ICD-10-PCS; 2023-01-05)
PROC: 4A033R1 Measurement of Arterial Saturation, Peripheral, Percutaneous Approach (ICD-10-PCS; 2023-01-05)
PROC: 5A09357 Assistance with Respiratory Ventilation, Less than 24 Consecutive Hours, Continuous Positive Airway Pressure (ICD-10-PCS; 2023-01-06)
PROC: 5A1D70Z Performance of Urinary Filtration, Intermittent, Less than 6 Hours Per Day (ICD-10-PCS; 2023-01-07)
DX: E10.52 Type 1 diabetes mellitus with diabetic peripheral angiopathy with gangrene (principal); N18.6 End stage renal disease; I21.A1 Myocardial infarction type 2; D62 Acute posthemorrhagic anemia; I96 Gangrene, not elsewhere classified; E87.1 Hypo-osmolality and hyponatremia; E87.20 Acidosis, unspecified; Z68.41 Body mass index [BMI] 40.0-44.9, adult; F11.20 Opioid dependence, uncomplicated; L03.116 Cellulitis of left lower limb; L03.115 Cellulitis of right lower limb; L97.819 Non-pressure chronic ulcer of other part of right lower leg with unspecified severity; N17.9 Acute kidney failure, unspecified; Z51.5 Encounter for palliative care; E87.5 Hyperkalemia; D63.1 Anemia in chronic kidney disease; M54.9 Dorsalgia, unspecified; K80.20 Calculus of gallbladder without cholecystitis without obstruction; E78.5 Hyperlipidemia, unspecified; E66.01 Morbid (severe) obesity due to excess calories; F41.9 Anxiety disorder, unspecified; F32.A Depression, unspecified; J44.9 Chronic obstructive pulmonary disease, unspecified; F17.210 Nicotine dependence, cigarettes, uncomplicated; E03.9 Hypothyroidism, unspecified; G89.4 Chronic pain syndrome; J45.20 Mild intermittent asthma, uncomplicated; G47.33 Obstructive sleep apnea (adult) (pediatric); S80.11XA Contusion of right lower leg, initial encounter; Z86.19 Personal history of other infectious and parasitic diseases; E10.22 Type 1 diabetes mellitus with diabetic chronic kidney disease; I95.89 Other hypotension; I27.20 Pulmonary hypertension, unspecified; E10.42 Type 1 diabetes mellitus with diabetic polyneuropathy; E83.39 Other disorders of phosphorus metabolism; I35.0 Nonrheumatic aortic (valve) stenosis; I45.10 Unspecified right bundle-branch block; M17.9 Osteoarthritis of knee, unspecified; E87.6 Hypokalemia; D50.9 Iron deficiency anemia, unspecified; E10.621 Type 1 diabetes mellitus with foot ulcer; Z88.0 Allergy status to penicillin; Z79.890 Hormone replacement therapy; Z79.82 Long term (current) use of aspirin; Z90.710 Acquired absence of both cervix and uterus; Z79.4 Long term (current) use of insulin; Z99.2 Dependence on renal dialysis; Z79.899 Other long term (current) drug therapy; Y83.8 Other surgical procedures as the cause of abnormal reaction of the patient, or of later complication, without mention of misadventure at the time of the procedure
CPT/HCPCS: 36415; 36430; 36558; 36569; 36600; 51702; 71045; 73700; 76770; 76937; 77001; 80048; 80053; 80069; 80074; 80202; 81001; 82330; 82728; 82803; 82947; 83540; 83550; 83605; 83735; 84100; 84132; 84443; 84478; 84484; 85014; 85018; 85025; 85027; 86317; 86850; 86900; 86901; 86923; 87040; 87077; 93005; 93010; 94640; 94660; 94664; 94760; 94762; 96365-59; 96375-59; 97161; 97166; 97530; 97535; 99152; 99153; 99291-25; A9270; C1750; C1751; C1769; C1887; C1894; C8929; J0612; J0881; J1100; J1644; J1815; J2185; J2250; J2405; J2704; J2765; J2916; J3010; J3370; J3480; J7030; J7040; J7050; J7060; J7070; J7131; P9016; P9046; P9047; Q9957

== ENCOUNTER 2023-01-15 11:59 | Inpatient (IN) | payer MEDICARE, OTHER ==
[~2023-01-15] VITALS: Ht 182.9 cm; Wt 163.8 kg
[2023-01-15] VITALS (8 sets, daily range): BP systolic 71–106; BP diastolic 36–88
[~2023-01-15 11:59] MED LIST changes: +DOXY100 PO; +LISI5 PO; +LOSA25 PO; +METO2.5 PO; +METO25 PO; +Prozac20 MG PO
[2023-01-15 12:44] LABS: BASOPHILS ABSOLUTE AUTO 0.06 K/mm3 (0.00-0.23); BASOPHILS PERCENT AUTO 1 % (0-2); EOSINOPHILS ABSOLUTE AUTO 0.37 K/mm3 (0.00-0.68); EOSINOPHILS PERCENT AUTO 4 % (0-6); Hematocrit 25.5 % (33.0-51.0); Hemoglobin 7.9 g/dL (11.5-16.0); IMMATURE GRAN ABSOLUTE AUTO 0.08 K/mm3 (0.00-0.10); IMMATURE GRAN PERCENT AUTO 1 % (0-1); LYMPHOCYTES ABSOLUTE AUTO 0.58 K/mm3 (0.84-5.20); LYMPHOCYTES PERCENT AUTO 6 % (21-46); MONOCYTES ABSOLUTE AUTO 0.73 K/mm3 (0.16-1.47); MONOCYTES PERCENT AUTO 7 % (4-13); Mean Corpuscular Volume 94 fL (80-100); Mean Platelet Volume 11.9 fL (9.1-12.4); NEUTROPHILS ABSOLUTE AUTO 8.77 K/mm3 (1.96-9.15); NEUTROPHILS PERCENT AUTO 83 % (41-73); Platelet Count 328 K/mm3 (150-400); RDW Coefficient Variation 17.2 % (11.7-14.2); RDW Standard Deviation 53.7 fL (35.1-46.3); Red Blood Cell Count 2.72 M/mm3 (3.80-5.20); White Blood Cell Count 10.59 K/mm3 (4.00-11.30)
[2023-01-15 12:51] LABS: Bun/Creatinine Ratio 7.9 (12.0-20.0); C-REACTIVE PROTEIN, EXT RANGE 5.38 mg/dL (0.000-0.300); Calcium, Blood 8.3 mg/dL (8.5-10.1); Creatinine, Blood 5.2 mg/dL (0.40-1.00); Magnesium, Blood 1.9 mg/dL (1.6-2.4); Potassium, Blood 3.5 mmol/L (3.5-5.5)
--- NOTE | 2023-01-15 18:53 | NUR ---
PT ARRIVED TO [facility] VIA GURNEY FROM ER. PT SLID OVER TO BED BY CLINICAL STAFF. PT IS AWAKE, ALERT AND ORIENTED X 4. SEE DOCUMENTED VS AND ADMISSION ASSESSMENT. PT STATES HER RLE WOUND HAS BEEN BLEEDING AROUND THE WOUND VAC DRESSING, IT WAS CHANGED BY HH RN RECENTLY. THIS RN REMOVED OLD DRESSING AND CLEANSED THE WOUND, NEW BLACK FOAM CUT AND SHAPED TO COVER THE WOUND BED, COVERED IN TRANSPERENT DRESSING UNTIL THERE WERE NO AIR LEAKS. PT TOLERATED WELL. THIS RN CONTACTED THE HOSPITALIST FOR MED REC ORDERS. DR HESS CONSULTED AND ORDERS RECIEVED. BLADDER SCANNED FOR 14MLS. PT STATES SHE HAS NOT VOIDED X 4 DAYS. ORIENTED TO ROOM AND CALL LIGHT. NO QUESTIONS OR CONCERNS AT THIS TIME. PT ABLE TO USE CALL LIGHT FOR NEEDS, WILL CONTINUE TO MONITOR AND GIVE REPORT TO ONCOMING RN.
--- NOTE | 2023-01-15 21:06 | NUR ---
CARE ASSUMPTION this rn assumed care at 1900 from elvin downs. tele sr 90s. patient blood pressure is soft. spo2 >95% on room air. patient is alert and oriented x4. patient is able to make her needs known. patient reports no chest pain/pressure, pain, or shortness of breath. see shift assessment for further detials. md young by to see the patient this evening. fluid restriction in place, 1500. plan of care is up to date.
[2023-01-16] VITALS (24 sets, daily range): BP systolic 56–110; BP diastolic 44–75
[2023-01-16 03:42] LABS: Hematocrit 22.7 % (33.0-51.0); Hemoglobin 7.2 g/dL (11.5-16.0); Mean Corpuscular HGB 29.3 pg (26.0-34.0); Mean Corpuscular HGB Conc 31.7 g/dL (31.5-36.5); Mean Corpuscular Volume 92 fL (80-100); Mean Platelet Volume 12.1 fL (9.1-12.4); Platelet Count 317 K/mm3 (150-400); RDW Coefficient Variation 17.4 % (11.7-14.2); RDW Standard Deviation 53.3 fL (35.1-46.3); Red Blood Cell Count 2.46 M/mm3 (3.80-5.20); White Blood Cell Count 11.24 K/mm3 (4.00-11.30)
[2023-01-16 04:31] LABS: Albumin, Blood 3.6 g/dL (3.4-5.0); Anion Gap 9 mmol/L (6-16); Blood Urea Nitrogen 45 mg/dL (8-24); Bun/Creatinine Ratio 7.6 (12.0-20.0); CO2, Blood 29 mmol/L (21-32); Calcium, Blood 8.1 mg/dL (8.5-10.1); Chloride, Blood 97 mmol/L (98-108); Creatinine, Blood 5.94 mg/dL (0.40-1.00); Glomerular Filtration Rate 8 (60-); Glucose, Blood 279 mg/dL (70-99); Phosphorus, Blood 4.3 mg/dL (2.5-4.9); Potassium, Blood 3.7 mmol/L (3.5-5.5); Sodium, Blood 135 mmol/L (136-145)
--- NOTE | 2023-01-16 04:53 | NUR ---
CALL TO MD fay rn called md young to inform him of patients map being below <60. patient is not symptomatic. no new orders placed at this time.
--- NOTE | 2023-01-16 05:54 | NUR ---
SHIFT SUMMARY patient neuro remains intact. blood pressure remains soft with maps from 50-60s. no acute changes. see pervious notes. plan of care up to date.
--- NOTE | 2023-01-16 16:51 | NUR ---
PT'S BP'S HAVE IMPROVED SLIGHTLY THROUGH OUT THE SHIFT WITH BLOOD TRANSFUSION, ALBUMIN, AND MIDODRINE. SHE IS ALERT AND ORIENTED, DENIES CP AND SOB. PAIN HAS BEEN AN INTERMITTENT ISSUE WHICH HAS BEEN WELL CONTROLLED WITH ROXICODONE. SHE WENT TO DIALYSIS, 3L OF FLUID WERE REMOVED. SHE HAS BEEN RESTING WELL IN BED. SHE IS WITHIN HER FLUID RESTRICTION. WOUND VAC IS FUNCTIONING. SHE REPORTS THAT SHE HAS NOT PRODUCED URINE IN DAYS BECAUSE OF DIALYSIS. BLOOD SUGARS HAVE BEEN WELL CONTROLLED WITH SHORT AND LONG ACTING INSULIN. REKHA. HYPTENSION CONTINUES
--- NOTE | 2023-01-16 19:46 | NUR ---
Wound vac started leaking at 1830 but no leak was found. Wound vac dressing taken down and new dressing placed with 2 suction ports and Y site to [facility]. Wound was cleaned with skintegrety. Wound bed with granulation tissue noted. 2 large black foam were required for dressing change. Pt tolerated well. Call light in reach.
--- NOTE | 2023-01-16 22:40 | NUR ---
ASSUMPTION OF CARE: PATIENT IS SITTING UPRIGHT IN BED, DAY CUSTOMS IMPORT SPECIALIST AT TIME OF ASSUMPTION OF CARE WAS REDRESSING HER RLE WOUND VAC DRESSING. WHICH IS MUCH IMPROVED HOOKED UP TO SUCTIONS WITH LITTLE OUTPUT AT THIS TIME, DAY PRIMARY RN ENDORSED FLUCATING AMOUNTS OF OUTPUT. PATIENT IS ALERT AND ORIENTED, PAINFUL. DENIES CHEST PAIN PRESSURE SOB, DIZZINESS OR LIGHTHEADEDNESS. PATIENT IS LARGER BUT REFUSING HER Q2 REPOSITIONS AT THIS TIME. FROM MYSELF OR PATIENT CARE TECHS. ON RA. DENIES BM FOR 2 DAYS, AND ENDORSES NORMAL FOR HER. PATIETN WITH INCREASED CBG, NO NEW ORDERS, CONTINUE TO MONITOR, SAVANNAH THROUGH THE NIGHT TO ENSURE NO CONTINUE INCREASE. PATIENT ALSO ENDORSES DROPPING CBG IN THE NIGHT. PATIENT OTHER WOUNDS ARE COVERED BY MEPILEX'S. MAP HAS BEEN [id number] THAN 65. PRN PAIN MEDS, NOTHING INFUSING CURRENLTY.
[2023-01-17] VITALS (20 sets, daily range): BP systolic 76–170; BP diastolic 36–77
--- NOTE | 2023-01-17 03:17 | NUR ---
END OF SHIFT: ONLY CHANGES FROM ASSUMPTION ARE PATIENT HAS BEEN SLOWLY DECREASING ON MAP, HOWEVER, IS SLEEPING WELL WILL SAVANNAH WILL AWAKE. MAP STILL >60. ON HOME TRILOGY, RT AWARE. WILL SAVANNAH CBG WITH AM LABS. NO CONCERNS FROM THIS RN. REDRESSED WOUND VAC WITH GRAIN SAMPLER AND NOW IS RUNNING WELL.
[2023-01-17 04:12] LABS: Hematocrit 24.9 % (33.0-51.0); Hemoglobin 7.9 g/dL (11.5-16.0)
[2023-01-17 04:31] LABS: Albumin, Blood 3.8 g/dL (3.4-5.0); Anion Gap 8 mmol/L (6-16); Blood Urea Nitrogen 37 mg/dL (8-24); Bun/Creatinine Ratio 7.6 (12.0-20.0); CO2, Blood 29 mmol/L (21-32); Calcium, Blood 8.2 mg/dL (8.5-10.1); Chloride, Blood 97 mmol/L (98-108); Creatinine, Blood 4.85 mg/dL (0.40-1.00); Glomerular Filtration Rate 10 (60-); Glucose, Blood 420 mg/dL (70-99); Potassium, Blood 3.6 mmol/L (3.5-5.5); Sodium, Blood 134 mmol/L (136-145)
--- NOTE | 2023-01-17 05:14 | NUR ---
INCREASED CBG: CBG TAKEN TO SAVANNAH IF CBG INCREASED FROM HS CBG. WHICH IT WAS INCREASED CALL TO RESIDENT ONE TIME 5 UNITS LISPRO X NOW ROUGHLY AT TIME OF LAB DRAW, PER RESIDENT. WILL SEE AM CBG.
--- NOTE | 2023-01-17 10:21 | NUR ---
PT IS A/O X4. DENIES CHEST PAIN AND SOB. SHE REPORTS CONTINUED 8/10 PAIN TO RT LEG STATING "THEY KEPT PICKING ON IT ALL NIGHT SO IT'S SORE" REFERRING TO WOUND VAC DRESSING CHANGE X2 LAST NOC THE WOUND SEAL WOULD NOT MAINTAIN SUCTION, THE DRESSING DID REQUIRE CHANGING. ACCORDING TO NOC SHE HAD A RESTFUL NIGHT SLEEP DESPITE PAIN. BLOOD SUGARS ARE HIGH THIS MORNING THIS WAS ADDRESSED WITH DR HERMAN. PT EXPRESSES THAT SHE UNDERSTANDS EDUCATION ABOUT DIABETIC DIET BUT HAS FAMILY BRING HER FOODS THAT ARE NOT RENAL OR DIABETIC FRIENDLY AND EATS THEM REGARDLESS OF EDUCATION. SHE IS CURRENTLY IN DIALYSIS. SHE HAS MANY COMPLAINTS OF PAIN AND ITCHING PRIOR TO LEAVING FOR DIALYSIS, SHE WAS TREATED FOR A 8/10 PAIN BEFORE LEAVING AND FOR ITCH WITH BENADRYL.
--- NOTE | 2023-01-17 15:38 | NUR ---
PT WITH HYPOTENSION NOTED, BUT IS IMPROVED FROM YESTERDAY. WOUND VAC DRESSING FAILS AGAIN THIS SHIFT, PT STATING THAT CHANGING THE DRESSING WILL BE TOO PAINFUL FOR HER, OUR BEST ATTEMPT WAS MADE TO MEND THE DRESSING IN WHICH GOOD SUCTION WAS ABLE TO BE MAINTAINED TO THE WOUND AFTER MENDING THE DRESSING. SHE REPORTS 7-8/10 PAIN T/O THE DAY, SHE IS TREATED FOR PAIN WITH CAUTION PRESSURES ARE SOFT. SHE HAS MANY COMPLAINTS ABOUT THE FOOD SHE IS SERVED AND IS REFUSING FOOD THAT IS SERVED STATING "I'M A PICKY EATER". I CALLED THE DIETARY OFFICE AND ATTEMPTS WERE MADE TO PUT TOGETHER A TRAY THAT SHE WILL EAT, SHE ALSO REFSUED ANY OF THE PROTEIN ON THE TRAY AND COMPLAINED, I CALLED THE DIETARY OFFICE AGAIN TO ATTEMPT TO DESIGN A TRAY THAT THE PATIENT WILL EAT. I OFFERED THE PATIENT RESOURCES ABOUT RENAL AND ADA DIET WHICH SHE REFUSED STATING "AT HOME MY BLOOD SUGARS ARE FINE", SHE REPORTS THAT SHE DOES NOT LIKE MOST MEATS "EXCEPT HAMBURGER", AND ALSO DOES NOT LIKE MEAT SUBSTITUTIONS. SHE REFUSED A DIETARY CONSULT.
--- NOTE | 2023-01-17 17:19 | NUR ---
PT CHANGED TO MEDCIAL STATUS WITHOUT TELE
--- NOTE | 2023-01-17 20:41 | NUR ---
CARE ASSUMPTION this rn assumed care at 1900. vital signs stable, blood pressure is soft, maps >60. md is aware of blood pressure and it is being managed with medication, see emar. patient is alert and oriented x4. perrla. patient is able to make needs known. patient reports pain in lower back and right leg, rated at 8 on a scale of 0-10, with 10 being the worst. patient recieved pain medication per emar, and upon reassessment patient at 6. patient reports no chest pain/pressure. generalized edema and edema in right lower extremity. patient reports no shortness of breath. clear upper lobes in lung and dim in lower lobes. patient has wound vac to right leg. plan of care is up to date. call light within reach and bed in lowest position.
[2023-01-18 04:17] VITALS: BP 95/57
--- NOTE | 2023-01-18 06:14 | NUR ---
SHIFT SUMMARY patient neuro remains unchaged. vital stable. patient slept majority of the night. no acute changes.
[2023-01-18 12:49] LABS: Glucose, Blood 631 mg/dL (70-99)
[2023-01-18 13:05] VITALS: BP 109/72
--- NOTE | 2023-01-18 13:43 | NUR ---
PT ATE SEVERAL PORTIONS OF POPCORN AND SUN CHIPS LAST NOC DESPITE ONGOING EDUCATION ABOUT DIET. THIS MORNING TRAY CONSISTED OF HEAVY CARBOHYDRATES, PT DID EAT HER ENTIRE TRAY THIS AM. THIS AFTERNOON HER BLOOD SUGAR WITH POC WAS NOTED TO BE "HI" WITH CONFIRMATION FROM LAB HER BLOOD SUGAR WAS NOTED TO BE 631, DR HERNANDEZ WAS CONSULTED WHEN THE HI RESULT WAS NOTED THE PLAN WAS TO GIVE SLIDING SCALE AND BEGIN CARB COUNT. SHE REFUSED A MAJORITY OF HER FOOD TRAY FOR LUNCH STATING THAT SHE WILL NOT EAT THE MEATS THAT WERE PRESENTED TO HER, SHE REFUSED ALL PROTEIN ON HER TRAY, SHE DID HOWEVER EAT SOME OF HER VEGETABLES AND SALAD. SHE WAS TREATED WITH 11 UNITS OF HUMALOG TO COVER THE 631 BLOOD SUGAR.
[2023-01-18 16:05] VITALS: BP 125/70
--- NOTE | 2023-01-18 17:08 | NUR ---
BLOOD SUGARS HAVE COME DOWN TO 340 FROM 631. BLOOD PRESSURES HAVE IMPROVED DURING THIS SHIFT. THERE ARE NO FURTHER ISSUES TO DISCUSS
--- NOTE | 2023-01-18 18:00 | NUR ---
PT'S BLOOD SUGARS HAVE IMPROVED FROM 631 TO 340 WITH THE ADDITION OF CARB COUNT. SHE IS RESTING WELL IN BED. SHE HAS BEEN WILLING TO EAT A MAJORITY OF HER DINNER TRAY
[2023-01-18 20:33] VITALS: BP 93/45
--- NOTE | 2023-01-18 23:07 | NUR ---
NO CHANGES ONLY IMPROVEMENT FROM PREVIOUS SHIFT WIHT PATIENT, A/O X 4. NO CONCERNS. WOUND DRESSING ON R LOWER EXTREMITY REINFORCED BETTER, IODINE TO TOES DUE TO DRY CRACKING SKIN. BED BATH BY PCT. DENIES CHEST PAIN PRESSURE OR SOB. TRILOGY AT BEDSIDE, CONTINUOUS MONITORING WHEN ASLEEP
[2023-01-19] VITALS (20 sets, daily range): BP systolic 88–138; BP diastolic 41–73
[2023-01-19 05:21] LABS: Hematocrit 26.2 % (33.0-51.0); Hemoglobin 8.2 g/dL (11.5-16.0)
[2023-01-19 05:46] LABS: Anion Gap 9 mmol/L (6-16); Blood Urea Nitrogen 43 mg/dL (8-24); Bun/Creatinine Ratio 7.8 (12.0-20.0); CO2, Blood 28 mmol/L (21-32); Calcium, Blood 8.9 mg/dL (8.5-10.1); Chloride, Blood 99 mmol/L (98-108); Creatinine, Blood 5.53 mg/dL (0.40-1.00); Glomerular Filtration Rate 9 (60-); Glucose, Blood 198 mg/dL (70-99); Magnesium, Blood 2.2 mg/dL (1.6-2.4); Phosphorus, Blood 5.1 mg/dL (2.5-4.9); Potassium, Blood 4.4 mmol/L (3.5-5.5); Sodium, Blood 136 mmol/L (136-145)
--- NOTE | 2023-01-19 16:44 | NUR ---
WOUND VAC CHANGED AT 1530, GOOD GRANULATION, MINIMAL BLEEDING. PATIENT TOLERATED WELL. ACHIEVED SEAL.
--- NOTE | 2023-01-19 17:57 | NUR ---
SHIFT SUMMARY ALERT, ORIENTED, PLEASANT COOPERATIVE. DIALYSIS COMPLETED IN AM, 3L OFF. WORKED WITH PT IN AFTERNOON, SBA WITH FWW TO AMBULATE IN ROOM. WOUND VAC CHANGED IN AFTERNOON. MEDICAL STATUS NO TELE. BP CONTINUED TO IMPROVE TO NORMAL RANGE SUPPORTED WITH MIDODRINE. USES HOME TRILOGY AT [facility], ROOM AIR DURING DAY. SENT HOME TRILOGY HOME WITH MOTHER, PLAN TO USE HOSP BIPAP TONIGHT. [facility] DOES NOT MANAGE HOME TRILOGY BIPAPS. PATIENT WILL USE FACILITY BIPAP WHILE AT [facility]. TOLERATING RENAL/ADA DIET. BLOOD SUGARS COVERED PER SS AND CARB INTAKE. NO BM THIS SHIFT. OLIGURIA, PULL UPS CHANGED ONCE. MOTHER TO VISIT DURING LATE AFTERNOON. PLAN TO DISCHARGE TO [facility] TOMORROW 01/20/23. WILL REPORT TO REAL ESTATE ASSET MANAGER RN.
--- NOTE | 2023-01-19 22:03 | NUR ---
ASSUMPTION OF CARE: PATIENT IS ONLY IMPROVING ABLE TO WORK WITH PT DURING DAY, AND PLAN FOR DC TO [facility] TOMORROW. PATIETN WILL BE USING OUR BIPAP FOR THE NIGHT, FAMILY TOOK EXTRA BELONGINGS. PATIENT WITH RECENT WOUND VAC CHANGE DURING DAY. VSBaldo, A/OX4 NO CONCERNS FROM THIS RN
[2023-01-20] VITALS (19 sets, daily range): BP systolic 93–139; BP diastolic 61–104
--- NOTE | 2023-01-20 04:55 | NUR ---
EOS: NO CHANGES FROM ASSUMPTION OF CARE VSS. SLEEPING WELL ON BIPAP. BLOOD PRESSURE STABLE. MIDODRINE ON BOARD. TOLERATING BIPAP WELL, SPO2 HOLDING NO OBVIOUS SIGNS OF APNEA WITH BIPAP ON, NO CONCERNS FROM THIS RN AT THIS TIME.
[2023-01-20 09:27] LABS: SARS-Cov-2 (COVID-19) PCR, MMC NEGATIVE (NEGATIVE)
[2023-01-20] MEDS ORDERED: FAMO10 PO ×2 (10:46)
[2023-01-20] MEDS ORDERED: FEROSUL325 M1 PO ×2 (10:47)
[2023-01-20] MEDS ORDERED: VISBIOME 112.51 EACH PO ×2 (10:48)
--- NOTE | 2023-01-20 16:29 | NUR ---
REPORT TO YOSELIN DOLAN. DC'D VIA WHEEL CHAIR WITH WOUND VAC AND BELONGINGS AND AMBULANCE CREW.
== END 2023-01-20 16:29 | DRG 314 ==
LOC: ER 11:59 → PCU 14:34
PROVIDERS: Family Medicine; Internal Medicine; Internal Medicine Nephrology; Student in an Organized Health Care Education/Training Program; ADMIT Internal Medicine
PROC: 5A1D70Z Performance of Urinary Filtration, Intermittent, Less than 6 Hours Per Day (ICD-10-PCS; principal; 2023-01-17)
DX: I95.9 Hypotension, unspecified (principal); N18.6 End stage renal disease; I50.32 Chronic diastolic (congestive) heart failure; N17.9 Acute kidney failure, unspecified; N25.81 Secondary hyperparathyroidism of renal origin; E87.1 Hypo-osmolality and hyponatremia; F11.20 Opioid dependence, uncomplicated; L97.913 Non-pressure chronic ulcer of unspecified part of right lower leg with necrosis of muscle; I12.0 Hypertensive chronic kidney disease with stage 5 chronic kidney disease or end stage renal disease; E03.9 Hypothyroidism, unspecified; E10.22 Type 1 diabetes mellitus with diabetic chronic kidney disease; E10.51 Type 1 diabetes mellitus with diabetic peripheral angiopathy without gangrene; E10.40 Type 1 diabetes mellitus with diabetic neuropathy, unspecified; E78.5 Hyperlipidemia, unspecified; I27.20 Pulmonary hypertension, unspecified; I08.0 Rheumatic disorders of both mitral and aortic valves; G89.29 Other chronic pain; M54.9 Dorsalgia, unspecified; I89.0 Lymphedema, not elsewhere classified; D63.1 Anemia in chronic kidney disease; E83.39 Other disorders of phosphorus metabolism; M54.2 Cervicalgia; M51.9 Unspecified thoracic, thoracolumbar and lumbosacral intervertebral disc disorder; M19.90 Unspecified osteoarthritis, unspecified site; F41.9 Anxiety disorder, unspecified; F32.A Depression, unspecified; E88.09 Other disorders of plasma-protein metabolism, not elsewhere classified; G47.00 Insomnia, unspecified; F17.210 Nicotine dependence, cigarettes, uncomplicated; K80.20 Calculus of gallbladder without cholecystitis without obstruction; E87.70 Fluid overload, unspecified; R60.0 Localized edema; G47.33 Obstructive sleep apnea (adult) (pediatric); J45.20 Mild intermittent asthma, uncomplicated; Z99.2 Dependence on renal dialysis; Z88.0 Allergy status to penicillin; Z74.09 Other reduced mobility
CPT/HCPCS: 36415; 36430; 51798; 71045; 72040; 80048; 80069; 82330; 82947; 83605; 83735; 84132; 84145; 85014; 85018; 85025; 85027; 85651; 86140; 86850; 86900; 86901; 86923; 87040; 93005; 93010; 94640; 94660; 94664; 94762; 96361; 96374; 96375; 97110; 97161; 97164; 97165; 97530; 99285-25; A9270; J0881; J1644; J1815; J1885; J3010; J7030; P9016; P9046; P9047; U0002

== ENCOUNTER 2023-02-06 05:06 | Day surgery (SDC) | payer MEDICARE, OTHER ==
[~2023-02-06 05:06] MED LIST changes: +FAMO10 PO; +FEROSUL325 M1 PO; +VISBIOME 112.51 EACH PO
== END 2023-02-06 22:50 | disposition home or self-care (01) ==
LOC: WOUND 05:06
DX: E10.622 Type 1 diabetes mellitus with other skin ulcer (principal); E10.22 Type 1 diabetes mellitus with diabetic chronic kidney disease; L97.322 Non-pressure chronic ulcer of left ankle with fat layer exposed; E10.621 Type 1 diabetes mellitus with foot ulcer; L97.412 Non-pressure chronic ulcer of right heel and midfoot with fat layer exposed; N18.30 Chronic kidney disease, stage 3 unspecified; S91.302D Unspecified open wound, left foot, subsequent encounter; S91.002D Unspecified open wound, left ankle, subsequent encounter; I83.228 Varicose veins of left lower extremity with both ulcer of other part of lower extremity and inflammation; S91.104D Unspecified open wound of right lesser toe(s) without damage to nail, subsequent encounter; L89.613 Pressure ulcer of right heel, stage 3; E10.42 Type 1 diabetes mellitus with diabetic polyneuropathy; I89.0 Lymphedema, not elsewhere classified; R77.0 Abnormality of albumin; Z72.0 Tobacco use
CPT/HCPCS: G0463

== ENCOUNTER 2023-02-17 13:30 | Observation (INO) | payer MEDICARE, OTHER ==
[~2023-02-17] VITALS: Ht 182.9 cm; Wt 149.7 kg
[2023-02-17 14:06] VITALS: BP 108/48
[2023-02-17 15:13] LABS: BASOPHILS ABSOLUTE AUTO 0.05 K/mm3 (0.00-0.23); BASOPHILS PERCENT AUTO 1 % (0-2); EOSINOPHILS ABSOLUTE AUTO 0.22 K/mm3 (0.00-0.68); EOSINOPHILS PERCENT AUTO 3 % (0-6); Hematocrit 29.2 % (33.0-51.0); Hemoglobin 9.2 g/dL (11.5-16.0); IMMATURE GRAN ABSOLUTE AUTO 0.02 K/mm3 (0.00-0.10); IMMATURE GRAN PERCENT AUTO 0 % (0-1); LYMPHOCYTES ABSOLUTE AUTO 0.18 K/mm3 (0.84-5.20); LYMPHOCYTES PERCENT AUTO 3 % (21-46); MONOCYTES ABSOLUTE AUTO 0.43 K/mm3 (0.16-1.47); MONOCYTES PERCENT AUTO 7 % (4-13); Mean Corpuscular HGB 30.4 pg (26.0-34.0); Mean Corpuscular HGB Conc 31.5 g/dL (31.5-36.5); Mean Corpuscular Volume 96 fL (80-100); Mean Platelet Volume 10.3 fL (9.1-12.4); NEUTROPHILS ABSOLUTE AUTO 5.52 K/mm3 (1.96-9.15); NEUTROPHILS PERCENT AUTO 86 % (41-73); Platelet Count 298 K/mm3 (150-400); RDW Coefficient Variation 18.3 % (11.7-14.2); RDW Standard Deviation 64.9 fL (35.1-46.3); Red Blood Cell Count 3.03 M/mm3 (3.80-5.20); White Blood Cell Count 6.42 K/mm3 (4.00-11.30)
[2023-02-17 15:20] LABS: Calcium, Ionized (POC) 1.08 mmol/L (1.10-1.46); Chloride (POC) 93 mmol/L (98-108); Creatinine (POC) 7.4 mg/dL (0.6-1.0); Glucose (ISTAT POC) 63 mg/dL (70-99); Hemoglobin (POC) 9.9 g/dL (12.0-16.0); Potassium (POC) 4.5 mmol/L (3.5-5.5); Sodium (POC) 130 mmol/L (135-148); Total CO2 (POC) 27 mmol/L (21-32)
[2023-02-17 15:29] LABS: Bun/Creatinine Ratio 10.2 (12.0-20.0); Calcium, Blood 9.2 mg/dL (8.5-10.1); Creatinine, Blood 6.26 mg/dL (0.40-1.00); Potassium, Blood 4.5 mmol/L (3.5-5.5)
[2023-02-17 15:31] LABS: International Normalized Ratio 0.93; Prothrombin Time Results 9.8 Sec (9.7-11.5)
[2023-02-17] MEDS ORDERED: METO25 PO (16:14)
[2023-02-17] MEDS ORDERED: Isosorbide Mono30 MG PO (16:15)
--- NOTE | 2023-02-17 16:54 | NUR ---
PT DC BACK TO [facility] VIA [facility]. GUS
== END 2023-02-17 16:54 | disposition home or self-care (01) ==
LOC: ER 13:30 → SURS 13:31
PROVIDERS: Student in an Organized Health Care Education/Training Program; ADMIT Radiology Diagnostic Radiology
PROC: 0J2TXYZ Change Other Device in Trunk Subcutaneous Tissue and Fascia, External Approach (ICD-10-PCS; principal; 2023-02-17)
DX: T82.42XA Displacement of vascular dialysis catheter, initial encounter (principal); E10.22 Type 1 diabetes mellitus with diabetic chronic kidney disease; I12.0 Hypertensive chronic kidney disease with stage 5 chronic kidney disease or end stage renal disease; N18.6 End stage renal disease; E10.40 Type 1 diabetes mellitus with diabetic neuropathy, unspecified; F41.9 Anxiety disorder, unspecified; F32.A Depression, unspecified; Z99.2 Dependence on renal dialysis; Z88.0 Allergy status to penicillin; Z79.899 Other long term (current) drug therapy; Z79.4 Long term (current) use of insulin
CPT/HCPCS: 36581; 77001; 80047; 80048; 82947; 85014; 85025; 85610; 85730; 99284-25; C1750; C1769; J1644; J7040

== ENCOUNTER → 2023-02-18 | Outpatient (CLI) | payer MEDICARE, OTHER ==
[~2023-02-18] MED LIST changes: +Acetaminophen325 M1 PO; +ONDA4 PO; +THERA-D2000 UNIT PO; +VANCOMYCIN
== END ==
LOC: LAB 14:30 → LAB SHORT 14:30
DX: M86.171 Other acute osteomyelitis, right ankle and foot (principal)
CPT/HCPCS: 87070; 87075; 87077; 87186; 87205

== ENCOUNTER 2023-02-20 20:46 | Emergency (ER) | payer MEDICARE, OTHER ==
[~2023-02-20] VITALS: Ht 182.9 cm; Wt 149.7 kg
[~2023-02-20 20:46] MED LIST changes: -Acetaminophen325 M1 PO; -ONDA4 PO; -THERA-D2000 UNIT PO; -VANCOMYCIN
[2023-02-20 21:14] LABS: BASOPHILS PERCENT AUTO 0 % (0-2); EOSINOPHILS PERCENT AUTO 4 % (0-6); Hematocrit 23.8 % (33.0-51.0); Hemoglobin 7.6 g/dL (11.5-16.0); IMMATURE GRAN ABSOLUTE AUTO 0.01 K/mm3 (0.00-0.10); IMMATURE GRAN PERCENT AUTO 0 % (0-1); LYMPHOCYTES ABSOLUTE AUTO 0.37 K/mm3 (0.84-5.20); LYMPHOCYTES PERCENT AUTO 14 % (21-46); MONOCYTES ABSOLUTE AUTO 0.24 K/mm3 (0.16-1.47); MONOCYTES PERCENT AUTO 9 % (4-13); Mean Corpuscular HGB 30.6 pg (26.0-34.0); Mean Corpuscular HGB Conc 31.9 g/dL (31.5-36.5); Mean Corpuscular Volume 96 fL (80-100); Mean Platelet Volume 11.1 fL (9.1-12.4); NEUTROPHILS ABSOLUTE AUTO 1.98 K/mm3 (1.96-9.15); NEUTROPHILS PERCENT AUTO 73 % (41-73); Platelet Count 186 K/mm3 (150-400); RDW Standard Deviation 60.4 fL (35.1-46.3); Red Blood Cell Count 2.48 M/mm3 (3.80-5.20)
[2023-02-20 21:38] LABS: Albumin, Blood 2.6 g/dL (3.4-5.0); Albumin/Globulin Ratio 0.6 (0.8-1.8); Bilirubin, Total 0.3 mg/dL (0.1-1.0); Bun/Creatinine Ratio 10.8 (12.0-20.0); Calcium, Blood 7.6 mg/dL (8.5-10.1); Creatinine, Blood 10.3 mg/dL (0.40-1.00); Potassium, Blood 5.8 mmol/L (3.5-5.5); Total Protein, Blood 6.6 g/dL (6.4-8.2)
[2023-02-21 00:45] VITALS: BP 115/52
== END 2023-02-21 00:47 | disposition home or self-care (01) ==
LOC: ER 20:46
PROVIDERS: Emergency Medicine
DX: U07.1 COVID-19 (principal); Z99.81 Dependence on supplemental oxygen; J45.909 Unspecified asthma, uncomplicated; E10.22 Type 1 diabetes mellitus with diabetic chronic kidney disease; N18.6 End stage renal disease; Z99.2 Dependence on renal dialysis; D64.9 Anemia, unspecified; E66.01 Morbid (severe) obesity due to excess calories; Z68.44 Body mass index [BMI] 60.0-69.9, adult; M19.90 Unspecified osteoarthritis, unspecified site; M54.9 Dorsalgia, unspecified; G89.29 Other chronic pain; Z79.82 Long term (current) use of aspirin; Z79.51 Long term (current) use of inhaled steroids; Z79.891 Long term (current) use of opiate analgesic; Z79.899 Other long term (current) drug therapy; Z88.0 Allergy status to penicillin; Z88.8 Allergy status to other drugs, medicaments and biological substances
CPT/HCPCS: 71046; 80053; 85025; 93005; 93010; 99285-25; A9270

== ENCOUNTER 2023-02-22 16:33 | Inpatient (IN) | payer MEDICARE, OTHER ==
[~2023-02-22] VITALS: Ht 182.9 cm; Wt 149.1 kg
[2023-02-22 17:52] LABS: BASOPHILS ABSOLUTE AUTO 0.02 K/mm3 (0.00-0.23); BASOPHILS PERCENT AUTO 1 % (0-2); EOSINOPHILS ABSOLUTE AUTO 0.05 K/mm3 (0.00-0.68); EOSINOPHILS PERCENT AUTO 1 % (0-6); Hematocrit 24.3 % (33.0-51.0); Hemoglobin 7.8 g/dL (11.5-16.0); IMMATURE GRAN ABSOLUTE AUTO 0.01 K/mm3 (0.00-0.10); IMMATURE GRAN PERCENT AUTO 0 % (0-1); LYMPHOCYTES ABSOLUTE AUTO 0.22 K/mm3 (0.84-5.20); LYMPHOCYTES PERCENT AUTO 6 % (21-46); MONOCYTES ABSOLUTE AUTO 0.36 K/mm3 (0.16-1.47); MONOCYTES PERCENT AUTO 9 % (4-13); Mean Corpuscular HGB 30.5 pg (26.0-34.0); Mean Corpuscular HGB Conc 32.1 g/dL (31.5-36.5); Mean Corpuscular Volume 95 fL (80-100); Mean Platelet Volume 11.4 fL (9.1-12.4); NEUTROPHILS ABSOLUTE AUTO 3.31 K/mm3 (1.96-9.15); NEUTROPHILS PERCENT AUTO 83 % (41-73); Platelet Count 165 K/mm3 (150-400); RDW Coefficient Variation 16.7 % (11.7-14.2); RDW Standard Deviation 58.4 fL (35.1-46.3); Red Blood Cell Count 2.56 M/mm3 (3.80-5.20); White Blood Cell Count 3.97 K/mm3 (4.00-11.30)
[2023-02-22 18:05] LABS: Albumin, Blood 2.7 g/dL (3.4-5.0); Albumin/Globulin Ratio 0.6 (0.8-1.8); Bilirubin, Total 0.3 mg/dL (0.1-1.0); Bun/Creatinine Ratio 9.6 (12.0-20.0); Calcium, Blood 8.1 mg/dL (8.5-10.1); Creatinine, Blood 6.58 mg/dL (0.40-1.00); Globulin, Blood 4.4 g/dL (2.2-4.0); Potassium, Blood 3.9 mmol/L (3.5-5.5); Total Protein, Blood 7.1 g/dL (6.4-8.2)
[2023-02-22 18:14] LABS: Base Excess Venous 0.6 mmol/L; Bicarbonate Venous 24.1 mmol/L (24.0-30.0); PCO2 Venous 57.9 mmHg (38-42); pH Blood Venous 7.28 (7.34-7.37)
[2023-02-22 19:27] LABS: Base Excess Venous -1.3 mmol/L; Bicarbonate Venous 23.1 mmol/L (24.0-30.0); PCO2 Venous 58.7 mmHg (38-42); pH Blood Venous 7.25 (7.34-7.37)
[2023-02-22 21:50] LABS: Base Excess Venous 0.8 mmol/L; Bicarbonate Venous 24.9 mmol/L (24.0-30.0); PCO2 Venous 51.7 mmHg (38-42); pH Blood Venous 7.32 (7.34-7.37)
[2023-02-22 22:30] VITALS: BP 157/57
[2023-02-23] VITALS (18 sets, daily range): BP systolic 87–135; BP diastolic 53–93
[2023-02-23 04:05] LABS: BASOPHILS PERCENT AUTO 0 % (0-2); EOSINOPHILS ABSOLUTE AUTO 0.03 K/mm3 (0.00-0.68); EOSINOPHILS PERCENT AUTO 2 % (0-6); Hematocrit 21.6 % (33.0-51.0); IMMATURE GRAN PERCENT AUTO 0 % (0-1); LYMPHOCYTES ABSOLUTE AUTO 0.31 K/mm3 (0.84-5.20); LYMPHOCYTES PERCENT AUTO 23 % (21-46); MONOCYTES ABSOLUTE AUTO 0.22 K/mm3 (0.16-1.47); MONOCYTES PERCENT AUTO 17 % (4-13); Mean Corpuscular HGB 30.3 pg (26.0-34.0); Mean Corpuscular HGB Conc 32.4 g/dL (31.5-36.5); Mean Corpuscular Volume 94 fL (80-100); Mean Platelet Volume 11.5 fL (9.1-12.4); NEUTROPHILS ABSOLUTE AUTO 0.77 K/mm3 (1.96-9.15); NEUTROPHILS PERCENT AUTO 58 % (41-73); Platelet Count 146 K/mm3 (150-400); RDW Coefficient Variation 16.5 % (11.7-14.2); RDW Standard Deviation 56.8 fL (35.1-46.3); Red Blood Cell Count 2.31 M/mm3 (3.80-5.20); White Blood Cell Count 1.33 K/mm3 (4.00-11.30)
--- NOTE | 2023-02-23 05:20 | NUR ---
SHIFT SUMMARY. PT ARRIVED ON UNIT LATE LAST NIGHT. AOX4, PLEASANT, COOPERATIVE WITH CARE. ADMITTED FOR ARF. HAS BEEN SATTING WELL ON 3 L O2 VIA NC WHILE AWAKE AND BIPAP WHILE SLEEPING. BEDREST AT THIS TIME. PT IS CURRENTLY LIVING AT [facility] FOR REHAB ON CELLULITIS OF RLE AND HAS NOT BEEN WALKING SINCE DEVELOPING COVID ABOUT A WEEK AGO PER PT. PHOTOS TAKEN FOR CHART. ADMIT PROCESS INCLUDING ASSESSMENT COMPLETED. PT REPORTS CHRONIC PAIN THAT HAS SO FAR BEEN WELL MANAGED VIA EMAR. ABX ADMINISTERED ON SCHEDULE WITHOUT DIFFICULTY. PT EDUCATED HAMMER OPERATOR LIGHT USE AND HAS BEEN USING IT APPROPRIATELY FOR ASSISTANCE THUS FAR. BED LOCKED IN LOWEST POSITION. CALL LIGHT LEFT WITHIN REACH.
[2023-02-23 09:06] LABS: Albumin, Blood 2.5 g/dL (3.4-5.0); Anion Gap 12 mmol/L (6-16); Blood Urea Nitrogen 66 mg/dL (8-24); Bun/Creatinine Ratio 9.1 (12.0-20.0); CO2, Blood 25 mmol/L (21-32); Calcium, Blood 8.1 mg/dL (8.5-10.1); Chloride, Blood 96 mmol/L (98-108); Creatinine, Blood 7.28 mg/dL (0.40-1.00); Glomerular Filtration Rate 6 (60-); Glucose, Blood 166 mg/dL (70-99); Magnesium, Blood 2.8 mg/dL (1.6-2.4); Phosphorus, Blood 6.3 mg/dL (2.5-4.9); Potassium, Blood 4.2 mmol/L (3.5-5.5); Sodium, Blood 133 mmol/L (136-145)
[2023-02-23] MEDS ORDERED: ONDA4 PO (10:27)
[2023-02-23] MEDS ORDERED: THERA-D2000 UNIT PO (10:27)
[2023-02-23] MEDS ORDERED: FAMO10 PO (10:29)
--- NOTE | 2023-02-23 11:20 | NUR ---
UPDATE PT FELL ASLEEP AND DESATURATED TO MID 80'S. PT PLACED ON BIPAP AND SATS INCREASED TO 98%. PT ENCOURAGED TO CALL WHEN SHE WAKES UP AND CAN COME OFF BIPAP. WILL CONTINUE TO MONITOR
[2023-02-23] MEDS ORDERED: FURO80 PO (13:02)
[2023-02-23] MEDS ORDERED: Acetaminophen325 M1 PO (13:02)
[2023-02-23] MEDS ORDERED: DOXY100 PO (13:03)
[2023-02-23] MEDS ORDERED: VISBIOME 112.51 EACH PO (13:03)
[2023-02-23] MEDS ORDERED: VANCOMYCIN (13:05)
--- NOTE | 2023-02-23 16:46 | NUR ---
SHIFT SUMMARY PT REMAINS ALERT AND ORIENTED. PT HAS BEEN ON ROOM AIR MOST OF SHIFT AND ON BIPAP FOR NAP NEEDED. PT RECEIVED DIALYSIS IN ROOM THIS SHIFT. VANCO INFUSING PER ORDERS AND PLAN FOR PATIENT TO RETURN TO [facility] THIS EVENING. TRANSPORT TO BE HERE AT APPROXIMATELY 1800. WILL CONTINUE TO MONITOR UNTIL THEN
== END 2023-02-23 18:21 | DRG 177 ==
LOC: ER 16:33 → PCU 21:27
PROVIDERS: Internal Medicine Nephrology; Student in an Organized Health Care Education/Training Program; ADMIT Internal Medicine
PROC: 5A09357 Assistance with Respiratory Ventilation, Less than 24 Consecutive Hours, Continuous Positive Airway Pressure (ICD-10-PCS; principal; 2023-02-22)
PROC: 5A1D70Z Performance of Urinary Filtration, Intermittent, Less than 6 Hours Per Day (ICD-10-PCS; 2023-02-22)
DX: U07.1 COVID-19 (principal); J18.9 Pneumonia, unspecified organism; J96.02 Acute respiratory failure with hypercapnia; N18.6 End stage renal disease; J96.01 Acute respiratory failure with hypoxia; F11.20 Opioid dependence, uncomplicated; E87.29 Other acidosis; N25.81 Secondary hyperparathyroidism of renal origin; E87.1 Hypo-osmolality and hyponatremia; I50.32 Chronic diastolic (congestive) heart failure; I13.2 Hypertensive heart and chronic kidney disease with heart failure and with stage 5 chronic kidney disease, or end stage renal disease; Z68.41 Body mass index [BMI] 40.0-44.9, adult; J44.0 Chronic obstructive pulmonary disease with (acute) lower respiratory infection; D63.1 Anemia in chronic kidney disease; G47.33 Obstructive sleep apnea (adult) (pediatric); B95.62 Methicillin resistant Staphylococcus aureus infection as the cause of diseases classified elsewhere; E10.40 Type 1 diabetes mellitus with diabetic neuropathy, unspecified; E10.22 Type 1 diabetes mellitus with diabetic chronic kidney disease; M54.9 Dorsalgia, unspecified; G89.29 Other chronic pain; M19.90 Unspecified osteoarthritis, unspecified site; E78.5 Hyperlipidemia, unspecified; F41.9 Anxiety disorder, unspecified; F32.A Depression, unspecified; G47.00 Insomnia, unspecified; F17.210 Nicotine dependence, cigarettes, uncomplicated; E83.41 Hypermagnesemia; E03.9 Hypothyroidism, unspecified; E66.01 Morbid (severe) obesity due to excess calories; E10.649 Type 1 diabetes mellitus with hypoglycemia without coma; E87.70 Fluid overload, unspecified; Z88.0 Allergy status to penicillin; Z99.2 Dependence on renal dialysis; Z79.899 Other long term (current) drug therapy; Z79.51 Long term (current) use of inhaled steroids; Z79.82 Long term (current) use of aspirin; Z79.4 Long term (current) use of insulin; Z98.890 Other specified postprocedural states; Z79.2 Long term (current) use of antibiotics; Z90.710 Acquired absence of both cervix and uterus; Z91.158 Patient's noncompliance with renal dialysis for other reason; Z79.890 Hormone replacement therapy
CPT/HCPCS: 36415; 71045; 80053; 80069; 82803; 82947; 83735; 84145; 84443; 85025; 93005; 93010; 94640; 94660; 94664; 94762; 99285-25; A9270; J0456; J0696; J0881; J1644; J1815; J3370; J7050

== ENCOUNTER 2023-03-06 03:55 | Day surgery (SDC) | payer MEDICARE ==
[~2023-03-06 03:55] MED LIST changes: +Acetaminophen325 M1 PO; +ONDA4 PO; +THERA-D2000 UNIT PO; +VANCOMYCIN
== END 2023-03-06 22:50 | disposition home or self-care (01) ==
LOC: WOUND 03:55
DX: I83.228 Varicose veins of left lower extremity with both ulcer of other part of lower extremity and inflammation (principal); E10.22 Type 1 diabetes mellitus with diabetic chronic kidney disease; N18.30 Chronic kidney disease, stage 3 unspecified; E10.621 Type 1 diabetes mellitus with foot ulcer; L97.412 Non-pressure chronic ulcer of right heel and midfoot with fat layer exposed; E10.622 Type 1 diabetes mellitus with other skin ulcer; L97.812 Non-pressure chronic ulcer of other part of right lower leg with fat layer exposed; L97.322 Non-pressure chronic ulcer of left ankle with fat layer exposed; L89.613 Pressure ulcer of right heel, stage 3; E10.42 Type 1 diabetes mellitus with diabetic polyneuropathy; I89.0 Lymphedema, not elsewhere classified; R77.0 Abnormality of albumin; T81.31XD Disruption of external operation (surgical) wound, not elsewhere classified, subsequent encounter; Z72.0 Tobacco use; Y83.8 Other surgical procedures as the cause of abnormal reaction of the patient, or of later complication, without mention of misadventure at the time of the procedure
CPT/HCPCS: 82947; G0463

== ENCOUNTER 2023-03-14 10:05 | Inpatient (IN) | payer MEDICARE, OTHER ==
[~2023-03-14] VITALS: Ht 185.4 cm; Wt 153.4 kg
[2023-03-14] VITALS (25 sets, daily range): BP systolic 80–164; BP diastolic 36–127
[2023-03-14 10:40] LABS: Chloride (POC) 95 mmol/L (98-108); Creatinine (POC) 12.6 mg/dL (0.6-1.0); Glucose (ISTAT POC) 48 mg/dL (70-99); Hemoglobin (POC) 7.5 g/dL (12.0-16.0); Potassium (POC) 6.4 mmol/L (3.5-5.5); Sodium (POC) 128 mmol/L (135-148); Total CO2 (POC) 21 mmol/L (21-32)
[2023-03-14 10:55] LABS: BASOPHILS ABSOLUTE AUTO 0.02 K/mm3 (0.00-0.23); BASOPHILS PERCENT AUTO 0 % (0-2); EOSINOPHILS ABSOLUTE AUTO 0.14 K/mm3 (0.00-0.68); EOSINOPHILS PERCENT AUTO 2 % (0-6); Hematocrit 23.6 % (33.0-51.0); Hemoglobin 7.3 g/dL (11.5-16.0); IMMATURE GRAN ABSOLUTE AUTO 0.03 K/mm3 (0.00-0.10); IMMATURE GRAN PERCENT AUTO 0 % (0-1); LYMPHOCYTES ABSOLUTE AUTO 0.32 K/mm3 (0.84-5.20); LYMPHOCYTES PERCENT AUTO 4 % (21-46); MONOCYTES ABSOLUTE AUTO 0.68 K/mm3 (0.16-1.47); MONOCYTES PERCENT AUTO 9 % (4-13); Mean Corpuscular HGB 29.7 pg (26.0-34.0); Mean Corpuscular HGB Conc 30.9 g/dL (31.5-36.5); Mean Corpuscular Volume 96 fL (80-100); Mean Platelet Volume 11.5 fL (9.1-12.4); NEUTROPHILS ABSOLUTE AUTO 6.75 K/mm3 (1.96-9.15); NEUTROPHILS PERCENT AUTO 85 % (41-73); Platelet Count 221 K/mm3 (150-400); RDW Coefficient Variation 16.2 % (11.7-14.2); RDW Standard Deviation 57.1 fL (35.1-46.3); Red Blood Cell Count 2.46 M/mm3 (3.80-5.20); White Blood Cell Count 7.94 K/mm3 (4.00-11.30)
[2023-03-14 11:22] LABS: Albumin, Blood 2.6 g/dL (3.4-5.0); Albumin/Globulin Ratio 0.6 (0.8-1.8); Bilirubin, Total 0.4 mg/dL (0.1-1.0); Bun/Creatinine Ratio 9.5 (12.0-20.0); Globulin, Blood 4.2 g/dL (2.2-4.0); Potassium, Blood 6.6 mmol/L (3.5-5.5); Total Protein, Blood 6.8 g/dL (6.4-8.2)
[2023-03-14 11:23] LABS: Creatinine, Blood 11.5 mg/dL (0.40-1.00)
[2023-03-14 14:46] LABS: Percent Saturation 16.5 % (15.0-50.0)
--- NOTE | 2023-03-14 15:30 | NUR ---
Patient arrived from ER via gurney and monitor. Obese patient with medical terminologist wound to right brand to calf, two lacerations to left shein addressed in er. One with 2 sutures and one with one. When rolling her over to clean back side and remove old sheets there was a a 7inch full thickness bleeding skin tear. She was alert and oriented and is able to communicate her needs. She is on RA ansd sats >90%. Dialysis is on there way to start dialysis. She has dialysis port to right chest, 20ga IV LAC and 20ga LH. LAC infusing D5 at 100mls
--- NOTE | 2023-03-14 16:00 | NUR ---
Had CN assist with turning to access right posterior thigh and cleaned wound and used Mastec around area. I used twezzers to pull skin together and placed steri strips to keep skin connected accross wound. After that was pulled altogether i placed an absorbant dressing over entire area and then used foam tape to pull skin together on outside to releive stress around wound.
--- NOTE | 2023-03-14 19:00 | NUR ---
CARE ASSUMPTION THIS RN ASSUMED CARE OF THE PT AT BEDSIDE FROM MATA Quiros RN. AT THIS TIME PT RECIEVING HEMODIALYSIS W SALES PERFORMANCE MANAGER AT BEDSIDE. PT IS ON BIPAP W SPO2 >92%. BP ELEVATED BEING MONITORED FROM DIALYSIS MACHINE. MONITOR SHOWING ST 111 W BBB. PT IS ALERT TO SELF AND MOVING HER ARMS W/O PURPOSE IN THE BED. ICU DIRECTOR OF PREMIUM SEAT SALES AT BEDSIDE SHORTLY AFTER CARE ASSUMPTION REQUESTING THAT PT BE MOVED TO ICU. MATA Quiros DAYSALLIE RN AGREEING TO GIVE REPORT TO ELECTRICAL ENGINEERING PROFESSOR THIS RN HAS ONLY ONSUMED CARE OF PT MOMENTS EARLIER.
[2023-03-14 19:23] LABS: Bun/Creatinine Ratio 5.8 (12.0-20.0); Calcium, Blood 8.7 mg/dL (8.5-10.1); Creatinine, Blood 1.71 mg/dL (0.40-1.00)
[2023-03-14 19:24] LABS: Potassium, Blood 2.1 mmol/L (3.5-5.5)
--- NOTE | 2023-03-14 19:30 | NUR ---
Patient started Dialysis at 1645 and was tolerating well. She went into arrythmias around 1800 after call from [employer] and went to look at rhythm. Called Dr Spivey to assess rhythn and she came after sending pic. We had already got 12 lead and showed her that. Dialysis continued. Patient very drowsy but otherwise asymptomatic and was arouable and ablee to answer questions. Dr Spivey had us semiconductor testing group leader to [place] with patches and run strip. We pushed 6 mg Adenosine and within a minute converted to SR. I had already called ICU nurse to help verify rhythm and we got code cart by room prior to conversion. After all over patient still very tired but arousable. Before Dr Spivey left she wanted 5mg Metoprolol IV and placed order for Q6 PRN as well. Dialysis continued. Gave report to PCU nurse and shortly after patient had several more runs and PCU charge nurse spoke with ICU and is moving. I went over and gave report to PIPE MACHINE OPERATOR. Patient will be transferred when done with Dialysis.
[2023-03-14 19:42] LABS: Base Excess Venous 0.1 mmol/L; Bicarbonate Venous 24.7 mmol/L (24.0-30.0); PCO2 Venous 31.1 mmHg (38-42); pH Blood Venous 7.49 (7.34-7.37)
[2023-03-14 22:42] LABS: Albumin, Blood 2.2 g/dL (3.4-5.0); Anion Gap 10 mmol/L (6-16); Blood Urea Nitrogen 53 mg/dL (8-24); Bun/Creatinine Ratio 8.2 (12.0-20.0); CO2, Blood 27 mmol/L (21-32); Calcium, Blood 7.3 mg/dL (8.5-10.1); Chloride, Blood 96 mmol/L (98-108); Creatinine, Blood 6.48 mg/dL (0.40-1.00); Glomerular Filtration Rate 7 (60-); Glucose, Blood 90 mg/dL (70-99); Phosphorus, Blood 5.6 mg/dL (2.5-4.9); Sodium, Blood 133 mmol/L (136-145)
[2023-03-14 22:43] LABS: Potassium, Blood 4.3 mmol/L (3.5-5.5)
--- NOTE | 2023-03-14 23:00 | NUR ---
ARRIVAL TO ICU PT ARRIVED TO ICU 13 AT 2100 FROM PCU; DIALYSIS COMPLETED IN PCU BEFORE TRANSFER. SHE IS REACTIVE TO VERBAL STIMULI BUT RESTLESS AND PICKING AT LEADS AND LINES. V30 BIPAP MASK ON WITH SPO2 >95%. HR 90'S. SBP 100'S. FIRST GLUCOSE DRAWN AT 2200 AND POC SHOWED 34; CALL MADE TO HOSPITALIST WHO PROVIDED ORDERS. EXTENSIVE WOUNDS TO BLE; SEVERAL PICTURES IN CHART. WHILE DRESSING WOUNDS, THIS RN ATTEMPTED TO ROTATE PT LEFT LEG MEDIALLY AND PT YELLED OUT IN PAIN; WHEN ASKED SHE SAID THAT THIS WAS A NEW PAIN; ANOTHER CALL MADE TO HOSPITALIST WHO PROVIDED ORDERS FOR PORTABLE XRAY OF HER HIPS. ONCE DONE A CALL MADE TO DR KAUFFMAN TO INTERPRET, HE STATED THAT IT WAS VERY CHALLENGING TO READ XRAY BUT THERE WAS NOTHING OBVIOUSLY BROKEN AND THAT IF SHE IS STABLE, THE DAY SHIFT TEAM CAN REEVALUATE IN THE AM. D5 INFUSING AT 100ML/HR. SEE ADMISSION ASSESSMENT FOR FULL ASSESSMENT.
[2023-03-15] VITALS (62 sets, daily range): BP systolic 62–155; BP diastolic 44–139
--- NOTE | 2023-03-15 00:50 | NUR ---
UPDATE CHECKED PT GLUCOSE VIA POC WHICH READ 65. CALL MADE TO DR KAUFFMAN REGARDING DECREASE IN GLUCOSE. NEW ORDERS PROVIDED TO START D10 GTT.
[2023-03-15] MEDS ORDERED: GABA400 PO (02:12)
[2023-03-15 04:47] LABS: BASOPHILS ABSOLUTE AUTO 0.03 K/mm3 (0.00-0.23); BASOPHILS PERCENT AUTO 1 % (0-2); EOSINOPHILS ABSOLUTE AUTO 0.19 K/mm3 (0.00-0.68); EOSINOPHILS PERCENT AUTO 5 % (0-6); Hematocrit 20.1 % (33.0-51.0); Hemoglobin 6.2 g/dL (11.5-16.0); IMMATURE GRAN ABSOLUTE AUTO 0.02 K/mm3 (0.00-0.10); IMMATURE GRAN PERCENT AUTO 1 % (0-1); LYMPHOCYTES ABSOLUTE AUTO 0.36 K/mm3 (0.84-5.20); LYMPHOCYTES PERCENT AUTO 9 % (21-46); MONOCYTES ABSOLUTE AUTO 0.55 K/mm3 (0.16-1.47); MONOCYTES PERCENT AUTO 13 % (4-13); Mean Corpuscular HGB 29.1 pg (26.0-34.0); Mean Corpuscular HGB Conc 30.8 g/dL (31.5-36.5); Mean Corpuscular Volume 94 fL (80-100); Mean Platelet Volume 11.7 fL (9.1-12.4); NEUTROPHILS PERCENT AUTO 73 % (41-73); Platelet Count 181 K/mm3 (150-400); RDW Coefficient Variation 15.8 % (11.7-14.2); RDW Standard Deviation 54.4 fL (35.1-46.3); Red Blood Cell Count 2.13 M/mm3 (3.80-5.20); White Blood Cell Count 4.25 K/mm3 (4.00-11.30)
[2023-03-15 05:02] LABS: Albumin, Blood 2.3 g/dL (3.4-5.0); Anion Gap 11 mmol/L (6-16); Blood Urea Nitrogen 55 mg/dL (8-24); Bun/Creatinine Ratio 8.1 (12.0-20.0); CO2, Blood 26 mmol/L (21-32); Calcium, Blood 7.5 mg/dL (8.5-10.1); Chloride, Blood 95 mmol/L (98-108); Creatinine, Blood 6.82 mg/dL (0.40-1.00); Glomerular Filtration Rate 7 (60-); Glucose, Blood 90 mg/dL (70-99); Magnesium, Blood 2.5 mg/dL (1.6-2.4); Phosphorus, Blood 6.4 mg/dL (2.5-4.9); Potassium, Blood 4.4 mmol/L (3.5-5.5); Sodium, Blood 132 mmol/L (136-145)
--- NOTE | 2023-03-15 06:41 | NUR ---
END OF SHIFT SUMMARY PT MENTATION HAS IMPROVED. SHE IS COMMUNICATING IN FULL SENTENCES AND MAKING HER NEEDS KNOWN; SHE STATED THAT SHE DID NOT REMEMBER BEING IN PCU BUT DOES REMEMBER THE FALL AT HOME. FENTANYL GIVEN ONCE FOR PAIN TO "LOWER BACK AND TAILBONE". AFEBRILE. SPO2 >98% ON 2L NC. HR 90-100, NO RHYTHM CHANGES SINCE ARRIVAL TO ICU. SBP 80-100. PT TOLERATING PO INTAKE WELL, WAS ABLE TO DRINK FLUIDS AND EAT SNACKS. BLE WOUNDS NOTED WITH DRESSINGS C/D/I. PERMACATH NOTED TO RT CHEST WALL. POWERGLIDE TO LUE INFUSING D10 AT 75ML/HR. GLUCOSE SLOWLY IMPROVING. WILL REPORT TO AM RN WHEN AVAILALBLE.
--- NOTE | 2023-03-15 06:47 | NUR ---
END OF SHIFT SUMMARY NO EVENTS FROM LAST NOTE. HE CONT TO BE A/O X4 AND ABLE TO MAKE HIS NEEDS KNOWN. PRN MORPHINE HAS HELPED CHEST PAIN. AFEBRILE. SPO2 >95% ON RA. HR 70-80'S. SBP 130-150'S; LABETALOL GIVEN ONCE AND MINIMALLY HELPFUL; NITRO NOW INFUSING AT 10MCG/MIN. PT HAD A TOTAL OF 400ML OF EMESIS OUTPUT; CONT TO HAVE MILD NAUSEA AT THIS TIME. PT UP TO THE TOILET WITH MINIMAL ASSIST FOR CORD MANAGMEMENT. RT RADIAL SITE CONT TO HAVE BRUISING, NO NEW BLEEDING NOTED. HEPARIN INFUSING AT 10UNITS/KG/HR. AGGRASTAT CONT TO INFUSE AT 18ML/HR. WILL REPORT TO AM RN WHEN AVAILABLE.
--- NOTE | 2023-03-15 07:00 | NUR ---
ASSUMPTION OF CARE PT RECEIVING D10 75ML/HR. SHE IS ALERT AND ORIENTED WITH PLEASANT AFFECT. SHE HAS DIFFICULTY REMEMBERING EVENTS FROM LAST NIGHT BUT IS ABLE TO EXPLAIN WHY SHE IS AT THE HOSPITAL. SHE ASSISTS WITH CARE ABLE. C/O CHRONIC PAIN, MEDICATED PER EMAR. SHE IS ON 2L NC WITH SPO2 >95%. LUNGS ARE CLEAR, DIMINISHED IN BASES. SINUS RHYTHM ON MONITOR WITH RATE IN 90S. BP STABLE WITH MAP >65. PT STS SHE HAS DIFFICULTY WITH HYPOTENSION AT HOME AND MIDODRINE WAS RECENTLY STARTED AND IT HAS BEEN BENEFICIAL. WHEN ASKED WHAT A NORMAL LOW BLOOD PRESSURE FOR HER IS, SHE STS "LIKE 70S/50S". SHE REMAINS EDEMATOUS THROUGHOUT. SHE IS TOLERATED PO WELL AND ATE BREAKFAST. CBG >120. SHE REPORTS ANURIA. WOUND DRESSINGS C/D/I. DR HESS ROUNDED THIS AM. PLAN FOR DIALYSIS TOMORROW. ORDERS RECEIVED TO TRANSFUSE 1 UNIT PRBCS. PLAN TO TITRATE D10 DRIP AND DISCONTINUE THIS AFTERNOON. DR ROWE ROUNDED AND UPDATED PT ON CARDIAC EVENTS FROM LAST NIGHT. PLAN FOR ECHO THIS AM.
[2023-03-15 14:34] LABS: Hematocrit 19.8 % (33.0-51.0); Hemoglobin 6.3 g/dL (11.5-16.0)
--- NOTE | 2023-03-15 16:42 | NUR ---
UPDATE PT RECEIVED 1 UNIT PRBCS, REPEAT H+H DONE. ORDER RECEIVED TO TRANSFUSE A SECOND UNIT OF PRBCS THAT IS CURRENTLY INFUSING. WOUND CARE OF L PATEL AND L THIGH COMPLETED.
--- NOTE | 2023-03-15 18:00 | NUR ---
SHIFT SUMMARY PT IS ALERT AND ORIENTED. SHE HAS TIME PERIODS WHERE SHE IS MORE ALERT AND TALKATIVE BUT THEN BECOMES DROWSY AND SLEEPS. SHE REPORTS FEELING BETTER THAN YESTERDAY. SHE REMEMBERS FALLING AT HOME AND COMING TO THE HOSPITAL BUT DOES NOT REMEMBER EVENTS FROM YESTERDAY EVENING. SHE HAS BEEN ON RA WHILE AWAKE, BUT 2L WHILE SLEEPING. SHE DENIED CPAP THROUGHOUT THE DAY. LUNGS ARE CLEAR THROUGHOUT. SINUS RHYTHM WITH BBB ON MONITOR WITH RATE IN 80S-90S. BP HAS BEEN LABILE THROUGHOUT THE DAY. PT REPORTS CHRONIC HYPOTENSION AND STS SHE RECENTLY STARTED TAKING MIDODRINE AND IT HAS BEEN HELPING. PT REPORTS OLIGURIA BUT PT DID HAVE ONE LARGE INCONTINENT VOID. SHE HAS BEEN TOLERATING PO INTAKE. D10 DISCONTINUED THIS AFTERNOON. R PATEL WOUND CLEANSED AND REDRESSED. R POSTERIOR THIGH WOUND DRESSING CHANGED. INPATIENT WOUND CONSULT PLACED. PT RECEIVED 1 UNIT PRBCS AND IS CURRENTLY RECEIVING HER SECOND UNIT. PER DR HESS, RECHECK H+H WITH AM LABS. BED IN LOW POSITION, CALL LIGHT WITHIN REACH.
--- NOTE | 2023-03-15 22:54 | NUR ---
ASSUMED CARE AT 1900 PT LAYING IN BED SLEEPING AT SHIFT CHANGE. SHE IS A/O X4 AND ABLE TO MAKE HER NEEDS KNOWN; GENERALIZED WEAKNESS NOTED. PT C/O 01/13 PAIN RELATED HER FALL YESTERDAY, PRN PAIN MEDS AVAILABLE AND GIVEN. AFEBRILE. SPO2 >98% ON 2L NC; PLAN TO WEAR CPAP WHILE SLEEPING. HR 80-90'S. SBP 100'S. TOLERATING PO INTAKE WELL. DIALYSIS PORT TO RT CHEST WALL NOTED, DRESSING C/D/I. WOUNDS TO BLE NOTED WITH DRESSINGS STILL C/D/I. SEE SHIFT ASSESSMENT FOR FULL ASSESSMENT.
[2023-03-16] VITALS (43 sets, daily range): BP systolic 83–137; BP diastolic 38–116
[2023-03-16 04:28] LABS: BASOPHILS ABSOLUTE AUTO 0.03 K/mm3 (0.00-0.23); BASOPHILS PERCENT AUTO 1 % (0-2); EOSINOPHILS PERCENT AUTO 8 % (0-6); Hematocrit 22.6 % (33.0-51.0); Hemoglobin 7.2 g/dL (11.5-16.0); IMMATURE GRAN ABSOLUTE AUTO 0.02 K/mm3 (0.00-0.10); IMMATURE GRAN PERCENT AUTO 1 % (0-1); LYMPHOCYTES ABSOLUTE AUTO 0.42 K/mm3 (0.84-5.20); LYMPHOCYTES PERCENT AUTO 11 % (21-46); MONOCYTES ABSOLUTE AUTO 0.53 K/mm3 (0.16-1.47); MONOCYTES PERCENT AUTO 14 % (4-13); Mean Corpuscular HGB 29.4 pg (26.0-34.0); Mean Corpuscular HGB Conc 31.9 g/dL (31.5-36.5); Mean Corpuscular Volume 92 fL (80-100); Mean Platelet Volume 11.5 fL (9.1-12.4); NEUTROPHILS ABSOLUTE AUTO 2.42 K/mm3 (1.96-9.15); NEUTROPHILS PERCENT AUTO 65 % (41-73); Platelet Count 178 K/mm3 (150-400); RDW Coefficient Variation 15.7 % (11.7-14.2); RDW Standard Deviation 53.3 fL (35.1-46.3); Red Blood Cell Count 2.45 M/mm3 (3.80-5.20); White Blood Cell Count 3.72 K/mm3 (4.00-11.30)
--- NOTE | 2023-03-16 06:18 | NUR ---
END OF SHIFT SUMMARY NO ACUTE EVENTS OVERNIGHT. SHE WAS ABLE TO TAKE SEVERAL NAPS THAT WERE 2 HOURS LONG. SHE CONT TO BE A/O X4 AND ABLE TO MAKE HER NEEDS KNOWN. PAIN DOWN TO 7/10 AFTER GIVING OXYCODONE Q4HR. AFEBRILE. ON 2L NC ALL NIGHT; DECLINED CPAP USE WHILE SLEEPING. HR 80'S AND NSR. SBP 80-100. PT TOLERATING PO FLUID WELL. PERMACATH TO RT CHEST NOTED; DRESSING C/D/I. NO CHANGES TO BLE WOUNDS. PT SALINE LOCKED. DR HESS AT BEDSIDE THIS AM AND STATED THAT DIALYSIS WOULD OCCURE TODAY. WILL REPORT TO AM RN WHEN AVAILABLE.
[2023-03-16 06:57] LABS: Albumin, Blood 2.1 g/dL (3.4-5.0); Anion Gap 12 mmol/L (6-16); Blood Urea Nitrogen 60 mg/dL (8-24); Bun/Creatinine Ratio 7.9 (12.0-20.0); CO2, Blood 25 mmol/L (21-32); Calcium, Blood 7.6 mg/dL (8.5-10.1); Chloride, Blood 95 mmol/L (98-108); Creatinine, Blood 7.59 mg/dL (0.40-1.00); Glomerular Filtration Rate 6 (60-); Glucose, Blood 207 mg/dL (70-99); Potassium, Blood 5.1 mmol/L (3.5-5.5); Sodium, Blood 132 mmol/L (136-145)
[2023-03-16 07:23] LABS: Phosphorus, Blood 8.5 mg/dL (2.5-4.9)
--- NOTE | 2023-03-16 15:19 | NUR ---
WOUND CARE PT IS A MUTUAL PT OF WOUND CENTER AND KNOWN TO THIS RN. ANTERIOR RLE WOUND IS CLEANSED WITH DERMAL WOUND AND COVERED WITH CALCIUM ALGINATE/ABD/TAPE. HYPERGRANULATION TISSUE NOTED WITH NO SIGNIFICANT CHANGE FROM LAST WOUND CLINIC VISIT. MORE CONCERNING TO THIS RN IS SIGNIFICANT DECLINE AND INCREASED PAIN TO R CALCANEOUS DM FOOT ULCER. DR. DUARTE NOTIFIED WITH X-RAY/ PODIATRY CONSULT. DR. ALVAREZ OFFICE NOTIFIED BY PHONE
--- NOTE | 2023-03-16 17:19 | NUR ---
Transferred care at 1715, report given to RN assuming care. No acute needs at time of report. See chart for further details.
--- NOTE | 2023-03-16 17:52 | NUR ---
ASSUMPTION OF CARE REPORT RECEIVED FROM BENNIE DOLAN. PT A&OX4, FOLLOWING COMMANDS, WEAKLY BRISENO. USING LIFT TO TURN PT. PT TOLERATING PO INTAKE WELL. RECEIVED DIALYSIS TODAY, 2L OFF. XRAY OF R FOOT TODAY FOR CONCERNS OF POSSIBLE OSTEO, NO SIGNS ON XRAY. WOUND CARE NURSE IN THIS EVENING TO ATTEND TO MULTIPLE WOUNDS. PT DENIES ANY OTHER NEEDS AT THIS TIME, NOW MEDICAL STATUS.
--- NOTE | 2023-03-16 21:29 | NUR ---
ASSUMED CARE PT IS A&O X4; SPO2 >92% ON 2LNC; MAP >65; NSR IN THE 70-80'S. PT DENIES CP, SOB, OR NAUSEA. COMPLAINS OF LOWER BACK/BOTTOM PAIN (TURNING Q2H). MEDI-HONEY APPLIED TO RIGHT HEEL PER ORDER W/ MEPILEX COVERING AND FOAM FOOTWEAR APPLIED. PT STATES THE PAIN "ISN'T TOO BAD RIGHT NOW" FOR RIGHT HEEL. DRESSINGS IN PLACE FOR PATEL AND THIGH.
[2023-03-17] VITALS (61 sets, daily range): BP systolic 76–123; BP diastolic 49–98
--- NOTE | 2023-03-17 00:32 | NUR ---
UPDATE PT NOW ON BIPAP 17/01; BACKUP RATE OF 16.
[2023-03-17 03:16] LABS: Hematocrit 23.1 % (33.0-51.0); Hemoglobin 7.2 g/dL (11.5-16.0)
[2023-03-17 03:34] LABS: Albumin, Blood 2.1 g/dL (3.4-5.0); Anion Gap 9 mmol/L (6-16); Blood Urea Nitrogen 44 mg/dL (8-24); Bun/Creatinine Ratio 7.2 (12.0-20.0); CO2, Blood 28 mmol/L (21-32); Calcium, Blood 7.8 mg/dL (8.5-10.1); Chloride, Blood 101 mmol/L (98-108); Creatinine, Blood 6.09 mg/dL (0.40-1.00); Glomerular Filtration Rate 8 (60-); Glucose, Blood 264 mg/dL (70-99); Magnesium, Blood 2.5 mg/dL (1.6-2.4); Phosphorus, Blood 6.8 mg/dL (2.5-4.9); Potassium, Blood 4.3 mmol/L (3.5-5.5); Sodium, Blood 138 mmol/L (136-145); Vancomycin, Random 23.3 ug/mL
--- NOTE | 2023-03-17 05:45 | NUR ---
SHIFT SUMMARY PT REMAINS A&O X4; SPO2 >92% ON BIPAP 17/01, BACKUP RATE OF 16 SINCE MIDNIGHT; MAP >65; NSR 70-80'S. PT HAD FEW MAP'S <65; DR KAUFFMAN WAS CALLED W/ ORDERS FOR MIDODRINE AND LEVOPHED. MIDODRINE WAS ADMINISTERED; LEVOPHED HAS NOT BEEN INITIATED. PT CONTINUES TO DENY CP, SOB, OR NAUSEA. SLEPT/RESTED QUIETLY T/O MOST OF NIGHT. PT HAS NOT PRODUCED ANY URINE THIS EVENING; STATES THIS IS NORMAL AND THAT SHE ONLY PRODUCES A "TINY BIT EVERY FEW DAYS". DRESSINGS PATENT. NO OTHER EVENTS THIS EVENING.
--- NOTE | 2023-03-17 06:25 | NUR ---
UPDATE DR HESS AT BEDSIDE. OK TO DC URINE COLLECTION ORDERS D/T PT BEING ANURIC. MIDODRINE ORDER CHANGED TO QID; SAME DOSAGE.
--- NOTE | 2023-03-17 08:00 | NUR ---
INITIAL ASSESSMENT PATIENT ALERT AND ORIENTED X 4, AFEBRILE. PATIENT BEING GIVEN PRN PAIN MEDICATIONS FOR COMPLAINTS OF BACK AND BOTTOM PAIN. PATIENT WEAK; LIMITED RANGE OF MOTION TO LOWER EXTREMITIES. PATIENT IS BEING REPOSITIONED WITH THE CEILING LIFT. LUNGS CLEAR AND DIM. PATIENT SATTING 90% AND GREATER ON RA. PATIENT IN SR, HR IN THE 70S. SBP 80S TO 90S. PATIENT RECEIVING SCHEDULED MIDODRINE QID. GI APPEARS WNL. LAST BM DOCUMENTED 2 DAYS AGO. PATIENT ANURIC; DIALYSIS PATIENT. PATIENT RECEIVING SCHEDULED LASIX DAILY. PATIENT HAS MULTIPLE WOUNDS, SKIN TEARS, ABRASIONS/ LACERATIONS. PICS IN PATIENT CHART. IVS FLUSHED AND SALINE LOCKED. PERMACATH TO R CHEST. BED LOW, CALL LIGHT IN REACH. CARE CONTINUES. BED LOW, CALL LIGHT IN REACH.
[2023-03-17 08:16] LABS: HEPATITIS B SURFACE ANTIBODY <3.10 IU/L
[2023-03-17 10:55] LABS: HEPATITIS B SURFACE ANTIGEN Negative (Negative)
--- NOTE | 2023-03-17 12:00 | NUR ---
PATIENT AFEBRILE. NO COMPLAINTS OF PAIN AT THIS TIME. PATIENT DROWSY. HR IN THE 70S. SBP 80S TO LOW 100S. PATIENT RECEIVING DIALYSIS AT THIS TIME. BLOOD SUGAR 149; NO COVERAGE INDICATED. NO OTHER ACUTE CHANGES TO NOTE ON AT THIS TIME. CARE CONTINUES.
--- NOTE | 2023-03-17 16:05 | NUR ---
PATIENT AFEBRILE. HR IN THE 80S. SBP 90S TO LOW 100S. PATIENT SATTING 90% AND GREATER ON 2 L NC. BLOOD SUGAR 184; COVERAGE GIVEN. COMPLETE BED BATH PERFORMED. ALL WOUNDS CLEANSED AND REDRESSED. NO OTHER ACUTE CHANGES TO NOTE ON AT THIS TIME. CARE CONTINUES.
--- NOTE | 2023-03-17 17:00 | NUR ---
ASSUMED CARE FROM ANIL RN IN ICU. A&OX4. ABLE TO MAKE NEEDS KNOWN. PATIENT COMFORTABLE IN BED. NO ISSUES OR CONERNS AT THIS TIME. VSS. TELE REQUESTED. BED IN LOWEST POSITION. CALL LIGHT WITHIN REACH.
--- NOTE | 2023-03-17 17:08 | NUR ---
SHIFT SUMMARY PATIENT REMAINED ALERT AND ORIENTED X 4, AFEBRILE. PATIENT AWAKE PRIOR TO DIALYSIS. PATIENT HAS BEEN NAPPING ON AND OFF SINCE DIALYSIS TOOK PLACE. PATIENT REMAINED WEAK BUT ABLE TO MOVE EXTREMITIES; VERY LIMITIED RANGE TO LEGS AND FEET. PATIENT GIVEN PRN OXY AND TYLENOL FOR COMPLAINTS OF BACK AND BOTTOM PAIN. PATIENT GIVEN PRN BENADRYL OT FOR COMPLAINTS OF ITCHY SKIN. PATIENT REMAINED SATTING 90% AND GREATER ON RA TO 2 L NC. PATIENT REMAINED IN SR, HR 70S TO 90S. SBP 80S TO 120S. NO BM THIS SHIFT. PATIENT HAD POOR APPETITE. PATIENT REMAINED ANURIC. PATIENT HAD COMPLETE BED BATH THIS SHIFT. ALL WOUNDS CLEANSED AND REDRESSED THIS SHIFT. DIALYSIS TOOK 3 L OFF. ADMIT HX COMPLETED THIS SHIFT WITH PATIENT. BLOOD SUGARS 258, 149 AND 184 THIS SHIFT. LONG ACTING AND SS INSULIN STARTED THIS AM. REPORT GIVEN TO ASSUMING NURSE.
--- NOTE | 2023-03-17 17:22 | NUR ---
PATIENT SUCCESSFULLY TRANSFERRED TO MEDICAL FLOOR, ROOM 354. ALL BELONGINGS SENT WITH PATIENT.
[2023-03-18] VITALS (19 sets, daily range): BP systolic 94–135; BP diastolic 42–73
--- NOTE | 2023-03-18 04:00 | NUR ---
SUMMARY: PT A/OX4, CALLS APPROPRIATELY TO SPECIFY NEEDS AND IS PLEASANT AND COOPERATIVE W/CARE. SHE REMAINS BEDREST W/LIFT REQUIRED OOB TO CHAIR D/T BLE WEAKNESS, DECONDITIONING, WOUNDS AND LIMITED ROM OF LEGS AND FEET. BUE STRENGTH AND MOVEMENT WNL AND PT IS ABLE TO EAT/FEED SELF AND PERFORM MOST ADL'S W/MINIMAL ASSIST. TURN SCHEDULE MAINTAINED AND LEGS FLOATED FOR SBD PREVENTION. HD CATH IS PRESENT TO R.CW AND PT IS ANURIC ON DIALYSIS W/1500ML FLUID RESTRICT ENFORCED. ZACHARY CARE PROVIDED AND DISPOSABLE CHUCKS TO BE CHANGED PRN FOR SELDOM INCONTINENCE. DX'S TO BLE'S REMAIN C/D/I. ANTERIOR RLE SURGICAL DX AND R.HEEL DX BOTH DUE TO BE CHANGED TODAY, WILL ENSURE DAY RN IS AWARE. PRN OXYCONTIN RECIEVED FOR GOOD EFFECT. VSS/AFEBRILE AND SHE REMAINS S.ORLY-NSR AT 50'S-70'S BPM. SHE TOLERATES CPAP AT HS W/CONT BIOX INTACT. NO ACUTE CHANES. WCTM AND REPORT TO DAY RN.
[2023-03-18 06:07] LABS: Hematocrit 24.3 % (33.0-51.0); Hemoglobin 7.6 g/dL (11.5-16.0)
[2023-03-18 06:32] LABS: Albumin, Blood 2.6 g/dL (3.4-5.0); Anion Gap 8 mmol/L (6-16); Blood Urea Nitrogen 26 mg/dL (8-24); Bun/Creatinine Ratio 5.5 (12.0-20.0); CO2, Blood 30 mmol/L (21-32); Calcium, Blood 8.1 mg/dL (8.5-10.1); Chloride, Blood 98 mmol/L (98-108); Creatinine, Blood 4.72 mg/dL (0.40-1.00); Glomerular Filtration Rate 10 (60-); Glucose, Blood 204 mg/dL (70-99); Magnesium, Blood 2.1 mg/dL (1.6-2.4); Potassium, Blood 4.2 mmol/L (3.5-5.5); Sodium, Blood 136 mmol/L (136-145); Vancomycin, Random 19.2 ug/mL
--- NOTE | 2023-03-18 18:26 | NUR ---
PT IS DROWSY TODAY. 4.5L REMOVED WITH DIALYSIS TODAY. PAIN HAS BEEN WELL CONTROLLED WITH MEDICATION. DR. ALVAREZ AT BEDSIDE THIS EVENING. PER MD, PLS REDRESS PER WOUND CARE ORDER ONCE BLEEDING STOPS. NO ACUTE CHANGES THIS SHIFT. PT INTAKE IS POOR. PEDODONTIST CONSULTED. BED IS IN THE LOWEST POSITION. WITH CALL LIGHT IN REACH. PT DECLINED TO SIT IN CHAIR FOR MEALS DUE TO BEING SO DROWSY.
[2023-03-19] VITALS (19 sets, daily range): BP systolic 96–127; BP diastolic 41–70
--- NOTE | 2023-03-19 04:17 | NUR ---
SHIFT SUMMARY PATIENT HAD NO ACUTE CHANGES. AXOX 4 AND BEDREST. CBG 105. DENIES CHEST PAIN, SOB, AND N/V. ON 2L O2 NC. POWERGLIDE CONCEPCIÓN ARM. PIV INTACT. TELE MONITOR NSR 72. VSS/AFEBRILE. MEDIHONEY APPLIED TO RIGHT HEEL AND DRESSING CHANGED. RESTED IN BED T/O SHIFT. CALL LIGHT IN REACH. BED IN LOWEST POSITION. WILL CONTINUE TO MONITOR UNTIL DAY SHIFT NURSE ASSUMES CARE.
[2023-03-19 05:58] LABS: Hematocrit 25.4 % (33.0-51.0); Hemoglobin 7.8 g/dL (11.5-16.0)
[2023-03-19 06:18] LABS: Albumin, Blood 2.8 g/dL (3.4-5.0); Anion Gap 6 mmol/L (6-16); Blood Urea Nitrogen 25 mg/dL (8-24); Bun/Creatinine Ratio 5.4 (12.0-20.0); CO2, Blood 32 mmol/L (21-32); Calcium, Blood 8.4 mg/dL (8.5-10.1); Chloride, Blood 100 mmol/L (98-108); Glomerular Filtration Rate 11 (60-); Glucose, Blood 186 mg/dL (70-99); Magnesium, Blood 2.4 mg/dL (1.6-2.4); Phosphorus, Blood 4.7 mg/dL (2.5-4.9); Potassium, Blood 3.9 mmol/L (3.5-5.5); Sodium, Blood 138 mmol/L (136-145); Vancomycin, Random 24.4 ug/mL
[2023-03-19 16:25] LABS: GBM, IGG MULTIPLEX BEAD ASSAY 0 AU/mL (0-19); MYELOPEROXIDASE (MPO) AB,IGG 0 AU/mL (0-19); SERINE PROTEINASE 3 PR3 AB,IGG 0 AU/mL (0-19)
--- NOTE | 2023-03-19 17:06 | NUR ---
PT AOX4 AND COOPERATIVE OF CARE. PT TREATED FOR PAIN AND ITCHING PER EMAR. PT HAD DIALYSIS TODAY. PT RESTING IN BED CALL LIGHT WITHIN REACH WILL CONTINUE TO MONITOR.
[2023-03-20] VITALS (16 sets, daily range): BP systolic 91–149; BP diastolic 31–86
--- NOTE | 2023-03-20 04:10 | NUR ---
SHIFT SUMMARY PATIENT HAD NO ACUTE CHANGES. AXOX 4 AND BEDREST. POWERGLIDE CONCEPCIÓN ARM INTACT. TELE MONITOR NSR 6. CBG 238. ON 2L O2 NC. FLUID RESTRICTIONS 1,500 mL. VSS/AFEBRILE. DENIES CHEST PAIN AND SOB. NAUSEOUS X ONE AND IV ZOFRAN GIVEN PRN. CALL LIGHT IN REACH. BED IN LOWEST POSITION. WILL CONTINUE TO MONITOR UNTIL DAY SHIFT NURSE ASSUMES CARE.
[2023-03-20 05:16] LABS: Hematocrit 26.8 % (33.0-51.0)
[2023-03-20 05:59] LABS: Anion Gap 5 mmol/L (6-16); Blood Urea Nitrogen 30 mg/dL (8-24); Bun/Creatinine Ratio 7.8 (12.0-20.0); CO2, Blood 31 mmol/L (21-32); Calcium, Blood 8.6 mg/dL (8.5-10.1); Chloride, Blood 101 mmol/L (98-108); Creatinine, Blood 3.86 mg/dL (0.40-1.00); Glomerular Filtration Rate 13 (60-); Glucose, Blood 306 mg/dL (70-99); Magnesium, Blood 2.2 mg/dL (1.6-2.4); Phosphorus, Blood 4.1 mg/dL (2.5-4.9); Potassium, Blood 3.9 mmol/L (3.5-5.5); Sodium, Blood 137 mmol/L (136-145); Vancomycin, Random 20.1 ug/mL
[2023-03-20 15:08] LABS: SARS-Cov-2 (COVID-19) PCR, MMC NEGATIVE (NEGATIVE)
[2023-03-20] MEDS ORDERED: JUVEN PACKET1 EAC3 PO (17:47)
[2023-03-20] MEDS ORDERED: Vitamin B-Comp1 EACH PO (17:48)
[2023-03-20] MEDS ORDERED: SEVEC800 PO (17:50)
[2023-03-20] MEDS ORDERED: MEDIHONEY TOP (17:50)
--- NOTE | 2023-03-20 18:33 | NUR ---
PT DISCHARGED AT 1830 VIA [facility]. PACKET WAS GIVEN TO DRIVERS. PT WAS LIFTED TO [facility] AND PERSONAL BELONGINGS TRANSFERED WITH HER. REPORT WAS CALLED OVER TO PSYCHIATRIC PRIOR TO TRANSPORT. NO DISTRESS NOTED. PT HAS BEEN AOX4 AND COOPERATIVE OF CARE. PT TREATED FOR NAUSEA,PAIN AND ITCHING PER EMAR. PT RECIEVED DIALYSIS TODAY.
[2023-03-20 18:50] LABS: ANA PATTERN Speckled; ANTINUCLEAR AB (ANA),HEP-2,IGG Detected (<1:80)
== END 2023-03-20 18:31 | DRG 622 ==
LOC: ER 10:05 → ICUE 14:37 → MEDS 14:37 → PCU 14:37 → ICUE 15:22 → MEDS 03-17 17:26 → ENPENDDIS 03-20 12:17 → MEDS 03-20 18:31
PROVIDERS: Internal Medicine; Internal Medicine Cardiovascular Disease; Internal Medicine Nephrology; Physician Assistant; ADMIT Family Medicine
PROC: 30233N1 Transfusion of Nonautologous Red Blood Cells into Peripheral Vein, Percutaneous Approach (ICD-10-PCS; principal; 2023-03-14)
PROC: 5A1D70Z Performance of Urinary Filtration, Intermittent, Less than 6 Hours Per Day (ICD-10-PCS; 2023-03-14)
PROC: 0JBN0ZZ Excision of Right Lower Leg Subcutaneous Tissue and Fascia, Open Approach (ICD-10-PCS; 2023-03-18)
DX: E10.622 Type 1 diabetes mellitus with other skin ulcer (principal); G92.8 Other toxic encephalopathy; L89.613 Pressure ulcer of right heel, stage 3; I50.33 Acute on chronic diastolic (congestive) heart failure; L97.419 Non-pressure chronic ulcer of right heel and midfoot with unspecified severity; F11.20 Opioid dependence, uncomplicated; I47.20 Ventricular tachycardia, unspecified; I13.2 Hypertensive heart and chronic kidney disease with heart failure and with stage 5 chronic kidney disease, or end stage renal disease; E87.1 Hypo-osmolality and hyponatremia; N18.6 End stage renal disease; N25.81 Secondary hyperparathyroidism of renal origin; E10.649 Type 1 diabetes mellitus with hypoglycemia without coma; E10.22 Type 1 diabetes mellitus with diabetic chronic kidney disease; M51.36 Other intervertebral disc degeneration, lumbar region; F41.9 Anxiety disorder, unspecified; G89.29 Other chronic pain; E03.9 Hypothyroidism, unspecified; E87.5 Hyperkalemia; G47.33 Obstructive sleep apnea (adult) (pediatric); E66.01 Morbid (severe) obesity due to excess calories; J44.9 Chronic obstructive pulmonary disease, unspecified; D63.1 Anemia in chronic kidney disease; E10.42 Type 1 diabetes mellitus with diabetic polyneuropathy; S71.111A Laceration without foreign body, right thigh, initial encounter; B95.62 Methicillin resistant Staphylococcus aureus infection as the cause of diseases classified elsewhere; F32.A Depression, unspecified; B96.1 Klebsiella pneumoniae [K. pneumoniae] as the cause of diseases classified elsewhere; J45.909 Unspecified asthma, uncomplicated; E83.39 Other disorders of phosphorus metabolism; E88.09 Other disorders of plasma-protein metabolism, not elsewhere classified; I27.20 Pulmonary hypertension, unspecified; W19.XXXA Unspecified fall, initial encounter; Z88.0 Allergy status to penicillin; Z91.048 Other nonmedicinal substance allergy status; Z79.82 Long term (current) use of aspirin; Z79.890 Hormone replacement therapy; Z79.4 Long term (current) use of insulin; Z79.51 Long term (current) use of inhaled steroids; Z79.899 Other long term (current) drug therapy; Z79.2 Long term (current) use of antibiotics; Z86.14 Personal history of Methicillin resistant Staphylococcus aureus infection; Z99.2 Dependence on renal dialysis; Z90.710 Acquired absence of both cervix and uterus; Z98.890 Other specified postprocedural states; Z91.199 Patient's noncompliance with other medical treatment and regimen due to unspecified reason; Z86.16 Personal history of COVID-19; Z87.891 Personal history of nicotine dependence; Z87.01 Personal history of pneumonia (recurrent); Z91.158 Patient's noncompliance with renal dialysis for other reason; Z68.30 Body mass index [BMI] 30.0-30.9, adult
CPT/HCPCS: 36415; 36430; 73502; 73630; 80047; 80048; 80053; 80069; 80202; 82607; 82728; 82746; 82803; 82947; 83036; 83516; 83540; 83550; 83605; 83735; 84484; 85014; 85018; 85025; 85651; 86039; 86141; 86334; 86850; 86900; 86901; 86923; 87040; 87340; 93005; 93010; 93306; 94640; 94660; 94664; 94760; 94762; 96374; 97166; 97530; 99285-25; A9270; J0153; J0612; J0692; J0881; J1644; J1815; J2405; J3010; J3370; J7040; J7050; J7060; J7070; P9016; P9047; U0002

== ENCOUNTER 2023-04-22 02:36 | Day surgery (SDC) | payer MEDICARE, OTHER ==
[~2023-04-22 02:36] MED LIST changes: +JUVEN PACKET1 EAC3 PO; +MEDIHONEY TOP; +SEVEC800 PO; +Vitamin B-Comp1 EACH PO
== END 2023-04-22 23:21 | disposition home or self-care (01) ==
LOC: WOUND 02:36
DX: L89.613 Pressure ulcer of right heel, stage 3 (principal); L97.812 Non-pressure chronic ulcer of other part of right lower leg with fat layer exposed; L97.822 Non-pressure chronic ulcer of other part of left lower leg with fat layer exposed; L97.412 Non-pressure chronic ulcer of right heel and midfoot with fat layer exposed; L97.512 Non-pressure chronic ulcer of other part of right foot with fat layer exposed; S91.302D Unspecified open wound, left foot, subsequent encounter; S91.002D Unspecified open wound, left ankle, subsequent encounter; I83.228 Varicose veins of left lower extremity with both ulcer of other part of lower extremity and inflammation; L03.115 Cellulitis of right lower limb; E10.42 Type 1 diabetes mellitus with diabetic polyneuropathy; E10.622 Type 1 diabetes mellitus with other skin ulcer; E10.621 Type 1 diabetes mellitus with foot ulcer; R77.0 Abnormality of albumin; Z72.0 Tobacco use
CPT/HCPCS: G0463

== ENCOUNTER 2023-04-29 02:57 | Day surgery (SDC) | payer MEDICARE, OTHER | END 2023-04-29 23:01 | disposition home or self-care (01) | LOC: WOUND 02:57 | DX: L89.613 Pressure ulcer of right heel, stage 3 (principal); E10.622 Type 1 diabetes mellitus with other skin ulcer; E10.621 Type 1 diabetes mellitus with foot ulcer; S80.811D Abrasion, right lower leg, subsequent encounter; E10.22 Type 1 diabetes mellitus with diabetic chronic kidney disease; N18.30 Chronic kidney disease, stage 3 unspecified; T81.31XD Disruption of external operation (surgical) wound, not elsewhere classified, subsequent encounter; L97.812 Non-pressure chronic ulcer of other part of right lower leg with fat layer exposed; L97.822 Non-pressure chronic ulcer of other part of left lower leg with fat layer exposed; L97.412 Non-pressure chronic ulcer of right heel and midfoot with fat layer exposed; I83.228 Varicose veins of left lower extremity with both ulcer of other part of lower extremity and inflammation; L03.115 Cellulitis of right lower limb; E10.42 Type 1 diabetes mellitus with diabetic polyneuropathy; I89.0 Lymphedema, not elsewhere classified; R77.0 Abnormality of albumin; Z72.0 Tobacco use; Y83.8 Other surgical procedures as the cause of abnormal reaction of the patient, or of later complication, without mention of misadventure at the time of the procedure; X58.XXXD Exposure to other specified factors, subsequent encounter | CPT/HCPCS: A9270 ==

== ENCOUNTER 2023-05-06 02:58 | Day surgery (SDC) | payer MEDICARE, OTHER | END 2023-05-06 23:18 | disposition home or self-care (01) | LOC: WOUND 02:58 | DX: L89.613 Pressure ulcer of right heel, stage 3 (principal); L97.812 Non-pressure chronic ulcer of other part of right lower leg with fat layer exposed; E10.622 Type 1 diabetes mellitus with other skin ulcer; L97.822 Non-pressure chronic ulcer of other part of left lower leg with fat layer exposed; L97.412 Non-pressure chronic ulcer of right heel and midfoot with fat layer exposed; L97.512 Non-pressure chronic ulcer of other part of right foot with fat layer exposed; S91.302D Unspecified open wound, left foot, subsequent encounter; S91.002D Unspecified open wound, left ankle, subsequent encounter; I83.228 Varicose veins of left lower extremity with both ulcer of other part of lower extremity and inflammation; S91.104D Unspecified open wound of right lesser toe(s) without damage to nail, subsequent encounter; L03.115 Cellulitis of right lower limb; E10.42 Type 1 diabetes mellitus with diabetic polyneuropathy; R77.0 Abnormality of albumin; Z72.0 Tobacco use; E10.621 Type 1 diabetes mellitus with foot ulcer | CPT/HCPCS: G0463 ==

== ENCOUNTER 2023-05-20 00:18 | Day surgery (SDC) | payer MEDICARE, OTHER ==
[2023-05-20] MEDS ORDERED: Lidocaine HCl 4% Topical Soln 50 ML BTL ONE (12:46)
== END 2023-05-20 22:40 | disposition home or self-care (01) ==
LOC: WOUND 00:18
DX: L89.613 Pressure ulcer of right heel, stage 3 (principal); L97.812 Non-pressure chronic ulcer of other part of right lower leg with fat layer exposed; L97.822 Non-pressure chronic ulcer of other part of left lower leg with fat layer exposed; L97.412 Non-pressure chronic ulcer of right heel and midfoot with fat layer exposed; L97.512 Non-pressure chronic ulcer of other part of right foot with fat layer exposed; S91.302D Unspecified open wound, left foot, subsequent encounter; S91.002D Unspecified open wound, left ankle, subsequent encounter; I83.228 Varicose veins of left lower extremity with both ulcer of other part of lower extremity and inflammation; S91.104D Unspecified open wound of right lesser toe(s) without damage to nail, subsequent encounter; L03.115 Cellulitis of right lower limb; I89.0 Lymphedema, not elsewhere classified; R77.0 Abnormality of albumin; Z72.0 Tobacco use
CPT/HCPCS: 99406; A6214; G0463

== ENCOUNTER 2023-05-23 10:08 | Inpatient (IN) | payer MEDICARE, OTHER ==
[2023-05-23] VITALS (11 sets, daily range): BP systolic 111–212; BP diastolic 53–154
[~2023-05-23] VITALS: Ht 182.9 cm; Wt 159.9 kg
[2023-05-23] MEDS ORDERED: Albuterol 2.5 MG/3 ML VIAL INH SCH (10:20)
[2023-05-23 10:48] LABS: Bicarbonate Venous 23.3 mmol/L (24.0-30.0); PCO2 Venous 48.6 mmHg (38-42); pH Blood Venous 7.32 (7.34-7.37)
[2023-05-23 10:54] LABS: BASOPHILS ABSOLUTE AUTO 0.03 K/mm3 (0.00-0.23); BASOPHILS PERCENT AUTO 1 % (0-2); EOSINOPHILS ABSOLUTE AUTO 0.26 K/mm3 (0.00-0.68); EOSINOPHILS PERCENT AUTO 6 % (0-6); Hematocrit 27.9 % (33.0-51.0); Hemoglobin 8.6 g/dL (11.5-16.0); IMMATURE GRAN ABSOLUTE AUTO 0.01 K/mm3 (0.00-0.10); IMMATURE GRAN PERCENT AUTO 0 % (0-1); LYMPHOCYTES ABSOLUTE AUTO 0.42 K/mm3 (0.84-5.20); LYMPHOCYTES PERCENT AUTO 10 % (21-46); MONOCYTES ABSOLUTE AUTO 0.42 K/mm3 (0.16-1.47); MONOCYTES PERCENT AUTO 10 % (4-13); Mean Corpuscular HGB 29.8 pg (26.0-34.0); Mean Corpuscular HGB Conc 30.8 g/dL (31.5-36.5); Mean Corpuscular Volume 97 fL (80-100); Mean Platelet Volume 10.9 fL (9.1-12.4); NEUTROPHILS ABSOLUTE AUTO 3.07 K/mm3 (1.96-9.15); NEUTROPHILS PERCENT AUTO 73 % (41-73); Platelet Count 211 K/mm3 (150-400); RDW Coefficient Variation 14.6 % (11.7-14.2); RDW Standard Deviation 51.2 fL (35.1-46.3); Red Blood Cell Count 2.89 M/mm3 (3.80-5.20); White Blood Cell Count 4.21 K/mm3 (4.00-11.30)
[2023-05-23 11:16] LABS: Albumin, Blood 2.8 g/dL (3.4-5.0); Albumin/Globulin Ratio 0.7 (0.8-1.8); Bilirubin, Total 0.7 mg/dL (0.1-1.0); Bun/Creatinine Ratio 10.4 (12.0-20.0); Calcium, Blood 8.8 mg/dL (8.5-10.1); Creatinine, Blood 7.96 mg/dL (0.40-1.00); Potassium, Blood 5.6 mmol/L (3.5-5.5); Total Protein, Blood 6.8 g/dL (6.4-8.2)
[2023-05-23] MEDS ORDERED: Glucose Oral Gel 15 GM TUBE PO ONE (11:20)
[2023-05-23 11:31] LABS: Influenza A, PCR NEGATIVE (NEGATIVE); Influenza B, PCR NEGATIVE (NEGATIVE); SARS-Cov-2 (COVID-19) PCR, MMC NEGATIVE (NEGATIVE)
[2023-05-23 11:57] LABS: Resp Syncytial Virus, PCR POSITIVE (NEGATIVE)
[2023-05-23] MEDS ORDERED: FLU VACC QS2023-24(6MOS UP)/PF 60 MCG/0.5 ML SYRINGE IM PRN (12:15)
[2023-05-23] MEDS ORDERED: Dextrose 50% 50 ML Syringe IV PRN (12:20)
[2023-05-23] MEDS ORDERED: Acetaminophen 325 MG TABLET PO PRN ×2 (12:20→18:00)
[2023-05-23] MEDS ORDERED: Ipratropium/Albuterol SulF 2.5-0.5MG/3 ML Amp INH PRN (12:35)
[2023-05-23] MEDS ORDERED: Anticoagulant Sod Citrate Soln 3 ML SYR INJ PRN (13:55)
[2023-05-23] MEDS ORDERED: Albumin (Human) 25gm/100ml 100 ML IV SCH (14:00)
[2023-05-23] MEDS ORDERED: Ipratropium/Albuterol SulF 2.5-0.5MG/3 ML Amp INH SCH (15:30)
[2023-05-23] MEDS ORDERED: Albuterol 2.5 MG/3 ML VIAL INH PRN (15:30)
[2023-05-23] MEDS ORDERED: Insulin Regular 100 Unit/ML 1ML Dose SC SCH (16:30)
[2023-05-23] MEDS ORDERED: Insulin Regular 100 UNIT/ML 10ML Vial SC SCH (16:30)
[2023-05-23] MEDS ORDERED: FERSU300 PO (17:10)
[2023-05-23] MEDS ORDERED: Prozac20 MG PO (17:10)
[2023-05-23] MEDS ORDERED: Calcium Acetat667 MG PO (17:11)
[2023-05-23] MEDS ORDERED: GUAI600T33 PO (17:11)
[2023-05-23] MEDS ORDERED: TRESIBA FL200 UNIT/2 SC (17:12)
[2023-05-23] MEDS ORDERED: GABA400 PO (17:14)
[2023-05-23] MEDS ORDERED: OXYC5 PO (18:10)
[2023-05-23] MEDS ORDERED: MORP15ER PO (18:10)
[2023-05-23] MEDS ORDERED: Mometasone/Formoterol MDI 100/5 mcg 13 GM INH SCH (18:15)
--- NOTE | 2023-05-23 18:18 | NUR ---
SHIFT SUMMARY ARRIVED TO FLOOR THIS SHIFT, WOUND TO RIGHT LOWER LEG DRESSED WITH MRALINE WRAP, DECLINING TO LET STAFF UNWRAP AT THIS TIME, WILL PASS INFO TO NOC RN. DIALYSIS PORT TO RIGHT UPPER CHEST, TREE FARMER IN ROOM TO DIALIZE AT THIS TIME. A/O X4. C/O PAIN 11/13 TO RIGHT SIDE AND BACK, CALLED DR OLIVER FOR HOME PAIN MEDS, CURRENTLY UPDATING MED REC. STATES TO USING A LIFT FOR MOBILITY AT [facility], AT [facility] FOR REHAB FOR THE PAST 4 MONTHS. SEES WOUND CLINIC FOR RIGHT LEG WOUND. CONTACT/DROPLET ISOLATION INITIATED. CARES ONGOING.
--- NOTE | 2023-05-23 20:59 | NUR ---
ADDENDUM TO TX NOTES: TO ROOM 330 @ APPROX 1400 TO START HEMODIALYSIS ON PT. PT IS A NEW ADMIT FROM ER, ADMITTED WITH RSV/SOB. EQUIPMENT TO ROOM AND SET UP. PT HAS NOT ARRIVED FROM ER.[id number] DR HESS UPDATED VIA PHONE. UNABLE TO START TX DUE TO TEMPERATURE OF WATER. MACHINE REGISTERING 49C. HOT AND COLD SIDES OF FAUCET DISPENSING VERY HOT WATER. BLOOD RETURNED AND TX NOT INITIATED MACHINE WOULD NOT RUN AND KEPT GOING INTO BYPASS. PRIMARY RN CALLED AND UPDATED. MAINTENANCE CALLED. TX STARTED AT 1710 AFTER WATER TEMPS DECREASED AND WARD SECRETARY AND TEST REDONE. PT TOLERATED TX WELL, SHE REQUESTS TO RUN 2 HOURS WITH THE UNDERSTANDING OF REPEAT TX IN AM.
[2023-05-23] MEDS ORDERED: Arginine/Glutamine/Calcium Hmb 1 Packet PO SCH (21:00)
[2023-05-23] MEDS ORDERED: Gabapentin 400 MG Cap PO SCH ×2 (21:00)
[2023-05-23] MEDS ORDERED: GuaiFENesin 600 MG TabCR PO SCH (21:00)
[2023-05-23] MEDS ORDERED: Ascorbic Acid 500 MG Tab PO SCH (21:00)
[2023-05-23] MEDS ORDERED: Midodrine 5 MG Tab PO SCH (21:00)
[2023-05-23] MEDS ORDERED: Atorvastatin 10 MG Tab PO SCH (21:00)
[2023-05-23] MEDS ORDERED: Morphine Sulfate IR 15 MG Tab PO PRN (21:15)
[2023-05-23] MEDS ORDERED: OxyCODONE HCL 5 MG TAB PO PRN (21:15)
--- NOTE | 2023-05-23 21:17 | NUR ---
NEUROPHYSIOLOGY TECH REPORTS POSSIBLE ST ELEVATION REPORTING HARD TO READ STRIP. PCU CHARGE STACIA REPORTS TO GET A SET OF VITALS AND GET A SET OF EYES ON PATIENT. RT HAS BEEN IN ROOM AND CURRENTLY AN RN STOVE INSTALLER TO GET VITALS AND CHANGE ATTENDS. PATIENT IN PAIN AND HER HOME PAIN MEDS WERE SUPPOSED TO ORDERED ON DAY SHIFT PER DAY RN. HOSPITALIST VLADIMIR MEJIA ORDERING HOME PAIN MEDS.
--- NOTE | 2023-05-23 21:24 | NUR ---
TOBACCO PACKING MACHINE OPERATOR YEN IN ROOM AND CALLED VLADIMIR MEJIA AND ORDERED STAT LABS AND EKG. CLOUD AUTOMATION TESTER IN ROOM DOING EKG. LAB NOTIFIED TO DO STAT LABS. T=98.6 P=116 R=19 DX=998/57 MAP 80 ON 3L STATING 95%.
[2023-05-23] MEDS ORDERED: Nitroglycerin 0.4 MG SUBL ONE (21:38)
[2023-05-23] MEDS ORDERED: Nitroglycerin 0.4 MG SUBL SL PRN (21:40)
[2023-05-23 21:43] LABS: Base Excess Venous 1.2 mmol/L; Bicarbonate Venous 25.4 mmol/L (24.0-30.0); PCO2 Venous 36.3 mmHg (38-42); pH Blood Venous 7.45 (7.34-7.37)
[2023-05-23] MEDS ORDERED: Darbepoetin Alfa In Albumn Sol 60 MCG/0.3 ML Syringe SC SCH (22:00)
[2023-05-23 22:05] LABS: Bun/Creatinine Ratio 10.3 (12.0-20.0); Calcium, Blood 8.4 mg/dL (8.5-10.1); Creatinine, Blood 6.14 mg/dL (0.40-1.00); Potassium, Blood 4.7 mmol/L (3.5-5.5)
[2023-05-23] MEDS ORDERED: Calcium Gluconate 10% 1,000 MG in NS 50 ML IV ONE (22:20)
--- NOTE | 2023-05-23 22:25 | NUR ---
SUPERINTENDENT MARINE OIL TERMINAL YEN REPORTS EKG SHOWS NO JUNCTIONAL RHYTHM OR ST ELEVATION, SHOWING ST 116. NITRO ORDERED AND GIVEN X ONE PER YEN ICU/VLADIMIR BUTTON TUFTING MACHINE OPERATOR RN FOR CHEST PAIN. CHEST PAIN RESOVED. NOTE: PATIENT HAD FINISHED DIALYSIS AFTER SHIFT CHANGE. NUCLEAR MEDICINE TECHNOLOGIST REPORTING 2.1 L TAKEN OFF. ALBUMIN ADMINISTER JUST BEFORE SHIFT CHANGE. CBG 213. VLADIMIR BUTTON TUFTING MACHINE OPERATOR ORDERED: NS 50 mL/CA GLUCONATE ORDERED: VBG LABS BY RT ORDERED: PORTABLE CHEST X-RAY " " [place]. SUPERINTENDENT MARINE OIL TERMINAL YEN REPORTS PATIENT NOW ON BIPAP SETUP BY RT. RECEIVED PAIN MEDS PER EMAR FOR BACK PAIN. YEN REPORTS HEADING BACK TO ICU. PATIENT RESTING IN BED WATCHING TV. WCTM.
[2023-05-24] VITALS (15 sets, daily range): BP systolic 111–1385; BP diastolic 54–690
--- NOTE | 2023-05-24 04:50 | NUR ---
PLODDER OPERATOR SUMMARY PT C/O PAIN AT START OF SHIFT BUT NO ORDERS FOR PAIN MEDS. PT HOME MED LIST REVIEWED AND ORDERS RECIEVED ISAMAR MEJIA TO GIVE HER HOEM REGIMINE OF MORPHINE AND OXYCODONE. PT WAS ADMINISTERED THESE AND REPORTED GOOD RELIEF. PT HAD EPISONE OF STACH AND RAPID RESPONSE TEAM ARRIVED DUE TO PT ALSO HAVING DIALYSIS THAT DAY AND THIER FAMILIARITY WITH THIS PT. PT COMPLETED STAT LABS, CHEST X-RAY AND BIPAP WAS PLACED. NITRO WAS ALSO GIVEN X 1 DUE TO PT CONTINUED CHEST PAIN. NO FURTHER EVENTS OCCURED. PT RESTING COMFORTABLY FOLLOWING THIS EVENT AND SLEPT PART OF THE NIGHT. DIALYSIS REPORTED TAKING OFF 2.1L YESTERDAY AND WILL RETURN TODAY. 05/24/23 ERIK NOVAK RN WILL RETURN
[2023-05-24 05:06] LABS: BASOPHILS ABSOLUTE AUTO 0.03 K/mm3 (0.00-0.23); BASOPHILS PERCENT AUTO 1 % (0-2); EOSINOPHILS ABSOLUTE AUTO 0.19 K/mm3 (0.00-0.68); EOSINOPHILS PERCENT AUTO 5 % (0-6); Hematocrit 24.2 % (33.0-51.0); Hemoglobin 7.5 g/dL (11.5-16.0); IMMATURE GRAN ABSOLUTE AUTO 0.01 K/mm3 (0.00-0.10); IMMATURE GRAN PERCENT AUTO 0 % (0-1); LYMPHOCYTES ABSOLUTE AUTO 0.41 K/mm3 (0.84-5.20); LYMPHOCYTES PERCENT AUTO 12 % (21-46); MONOCYTES ABSOLUTE AUTO 0.36 K/mm3 (0.16-1.47); MONOCYTES PERCENT AUTO 10 % (4-13); Mean Corpuscular HGB 29.8 pg (26.0-34.0); Mean Corpuscular Volume 96 fL (80-100); Mean Platelet Volume 10.9 fL (9.1-12.4); NEUTROPHILS ABSOLUTE AUTO 2.51 K/mm3 (1.96-9.15); NEUTROPHILS PERCENT AUTO 71 % (41-73); Platelet Count 185 K/mm3 (150-400); RDW Coefficient Variation 14.8 % (11.7-14.2); RDW Standard Deviation 52.4 fL (35.1-46.3); Red Blood Cell Count 2.52 M/mm3 (3.80-5.20); White Blood Cell Count 3.51 K/mm3 (4.00-11.30)
[2023-05-24 05:36] LABS: Magnesium, Blood 3.1 mg/dL (1.6-2.4)
[2023-05-24 05:41] LABS: Albumin, Blood 3.1 g/dL (3.4-5.0); Anion Gap 8 mmol/L (6-16); Blood Urea Nitrogen 66 mg/dL (8-24); Bun/Creatinine Ratio 10.3 (12.0-20.0); CO2, Blood 27 mmol/L (21-32); Calcium, Blood 8.5 mg/dL (8.5-10.1); Chloride, Blood 100 mmol/L (98-108); Creatinine, Blood 6.39 mg/dL (0.40-1.00); Glomerular Filtration Rate 7 (60-); Glucose, Blood 158 mg/dL (70-99); Potassium, Blood 4.9 mmol/L (3.5-5.5); Sodium, Blood 135 mmol/L (136-145)
[2023-05-24 05:43] LABS: Phosphorus, Blood 8.1 mg/dL (2.5-4.9)
[2023-05-24] MEDS ORDERED: Levothyroxine Sodium 0.125 MG Tab PO SCH (06:00)
[2023-05-24] MEDS ORDERED: Insulin Regular 100 UNIT/ML 10ML Vial SC SCH (07:30)
[2023-05-24] MEDS ORDERED: MethylPREDNISolone Sod Succ 125 MG Vial IV ONE (08:00)
[2023-05-24] MEDS ORDERED: Calcium Acetate 667 MG Gel Cap PO SCH (08:30)
[2023-05-24] MEDS ORDERED: Ferrous Sulfate 325 MG Tab PO SCH (09:00)
[2023-05-24] MEDS ORDERED: Famotidine 20 MG Tab PO SCH (09:00)
[2023-05-24] MEDS ORDERED: Heparin Sodium,Porcine 5,000 UNIT/0.5 ML SDV SC SCH (09:00)
[2023-05-24] MEDS ORDERED: FLUoxetine HCL 20 MG CAP PO SCH (09:00)
[2023-05-24] MEDS ORDERED: Cholecalciferol 1000 Unit Tablet (=25MCG) PO SCH (09:00)
[2023-05-24] MEDS ORDERED: Aspirin 81 MG TabEC PO SCH (09:00)
--- NOTE | 2023-05-24 18:12 | NUR ---
SHIFT REPORT REPORT RECEIVED VERIFIED PT PT A/O VERY PLEASENT CURRENTLY ON BIPAP AND GOYO WELL. PT SLEEPING COMFORTABLE DIALYSIS TO BE DONE AROUND 1300, DR HESS IN AND ROUNDED ON PT NO CHANGE IN CONDITION. 1400 MAINTANANCE IN TO FIX WATER ISSUES BEFORE DIALYSIS STARTS. DIALYSIS IN PROGRESS PT GOYO WELL AND EATING DINNER. WILL CONT TO MONITOR
[2023-05-24] MEDS ORDERED: Insulin Regular 100 UNIT/ML 10ML Vial SC ONE (21:10)
[2023-05-25] VITALS (18 sets, daily range): BP systolic 92–135; BP diastolic 40–90
[2023-05-25 04:46] LABS: BASOPHILS ABSOLUTE AUTO 0.02 K/mm3 (0.00-0.23); BASOPHILS PERCENT AUTO 1 % (0-2); EOSINOPHILS PERCENT AUTO 0 % (0-6); Hematocrit 23.9 % (33.0-51.0); Hemoglobin 7.4 g/dL (11.5-16.0); IMMATURE GRAN ABSOLUTE AUTO 0.02 K/mm3 (0.00-0.10); IMMATURE GRAN PERCENT AUTO 1 % (0-1); LYMPHOCYTES PERCENT AUTO 11 % (21-46); MONOCYTES ABSOLUTE AUTO 0.27 K/mm3 (0.16-1.47); MONOCYTES PERCENT AUTO 10 % (4-13); Mean Corpuscular HGB 29.5 pg (26.0-34.0); Mean Corpuscular Volume 95 fL (80-100); Mean Platelet Volume 11.1 fL (9.1-12.4); NEUTROPHILS ABSOLUTE AUTO 2.19 K/mm3 (1.96-9.15); NEUTROPHILS PERCENT AUTO 78 % (41-73); Platelet Count 186 K/mm3 (150-400); RDW Coefficient Variation 14.3 % (11.7-14.2); RDW Standard Deviation 49.2 fL (35.1-46.3); Red Blood Cell Count 2.51 M/mm3 (3.80-5.20)
[2023-05-25 05:04] LABS: Albumin, Blood 2.9 g/dL (3.4-5.0); Anion Gap 6 mmol/L (6-16); Blood Urea Nitrogen 57 mg/dL (8-24); Bun/Creatinine Ratio 10.8 (12.0-20.0); CO2, Blood 30 mmol/L (21-32); Calcium, Blood 8.3 mg/dL (8.5-10.1); Chloride, Blood 96 mmol/L (98-108); Glomerular Filtration Rate 9 (60-); Glucose, Blood 462 mg/dL (70-99); Magnesium, Blood 2.9 mg/dL (1.6-2.4); Phosphorus, Blood 7.8 mg/dL (2.5-4.9); Potassium, Blood 5.3 mmol/L (3.5-5.5); Sodium, Blood 132 mmol/L (136-145)
--- NOTE | 2023-05-25 05:47 | NUR ---
SHIFT SUMMARY PATIENT IS ALERT AND ORIENTED. PATIENT HAS HAD NO ACUTE EVENTS THIS SHIFT. VITAL SIGNS REVIEWED. PATIENT HAS HAD PAIN THIS SHIFT, MEDICATED FOR PAIN ONCE THIS SHIFT. PATIENT HAS HAD NO COMPLAINTS OF SOB, NAUSEA, OR VOMITTING THIS SHIFT. BED IN LOCKED AND LOWEST POSITION. CALL LIGHT IN PLACE. WILL MONITOR UNTIL SHIFT CHANGE.
[2023-05-25] MEDS ORDERED: Anticoagulant Sod Citrate Soln 3 ML SYR INJ PRN (07:20)
[2023-05-25] MEDS ORDERED: Insulin Regular 100 UNIT/ML 10ML Vial SC SCH ×2 (07:30→11:30)
[2023-05-25] MEDS ORDERED: Sodium Zirconium Cyclosilicate 10 GM Packet PO SCH (09:00)
[2023-05-25] MEDS ORDERED: Insulin Glargine-Yfgn 100 Unit/mL 3 ML SYR SC SCH (09:00)
[2023-05-25] MEDS ORDERED: Albumin (Human) 25gm/100ml 100 ML IV SCH (09:05)
--- NOTE | 2023-05-25 11:58 | NUR ---
REPORT RECEIVED VERIFIED PT A/O AND ON BIPAP, FSBS ELEVATED AND MD AWARE NEW ORDERS WRITTEN, 20 UNITS GIVEN AND PT TAKEN TO DIALYSIS 0900
--- NOTE | 2023-05-25 12:00 | NUR ---
1200 PT BACK FROM DIALYSIS A/O, 4 LITERS REMOVED PER REPORT. FSBS 331 WHEN RETURNED AND COVERED.
--- NOTE | 2023-05-25 18:48 | NUR ---
NO CHANGE IN PT CONDITION, REQUESTED O2 TREATMENT AND VSS WNL. WOUND TREATMENT NURSE CAME IN AND DID DRESSING CHANGE STATED IT LOOKED MUCH BETTER AND WROTE ORDERS. FSBS STILL ELEVATED, 415 PT WAS COVERED WITH INSULIN AND MD WAS MADE AWARE, NO CHANGE IN CONDITON, PT WILL BE CHECKED BEFORE BED.
[2023-05-26] VITALS (16 sets, daily range): BP systolic 95–150; BP diastolic 37–99
[2023-05-26 04:53] LABS: BASOPHILS ABSOLUTE AUTO 0.03 K/mm3 (0.00-0.23); BASOPHILS PERCENT AUTO 1 % (0-2); EOSINOPHILS ABSOLUTE AUTO 0.22 K/mm3 (0.00-0.68); EOSINOPHILS PERCENT AUTO 5 % (0-6); Hematocrit 24.4 % (33.0-51.0); Hemoglobin 7.4 g/dL (11.5-16.0); IMMATURE GRAN ABSOLUTE AUTO 0.01 K/mm3 (0.00-0.10); IMMATURE GRAN PERCENT AUTO 0 % (0-1); LYMPHOCYTES ABSOLUTE AUTO 0.54 K/mm3 (0.84-5.20); LYMPHOCYTES PERCENT AUTO 12 % (21-46); MONOCYTES ABSOLUTE AUTO 0.29 K/mm3 (0.16-1.47); MONOCYTES PERCENT AUTO 7 % (4-13); Mean Corpuscular HGB 29.5 pg (26.0-34.0); Mean Corpuscular HGB Conc 30.3 g/dL (31.5-36.5); Mean Corpuscular Volume 97 fL (80-100); Mean Platelet Volume 10.8 fL (9.1-12.4); NEUTROPHILS ABSOLUTE AUTO 3.34 K/mm3 (1.96-9.15); NEUTROPHILS PERCENT AUTO 75 % (41-73); Platelet Count 203 K/mm3 (150-400); RDW Coefficient Variation 14.5 % (11.7-14.2); RDW Standard Deviation 51.1 fL (35.1-46.3); Red Blood Cell Count 2.51 M/mm3 (3.80-5.20); White Blood Cell Count 4.43 K/mm3 (4.00-11.30)
--- NOTE | 2023-05-26 05:22 | NUR ---
SHIFT SUMMARY PATIENT IS ALERT AND ORIENTED. PATIENT HAS HAD NO ACUTE EVENTS THIS SHIFT. VITAL SIGNS REVIEWED. PATIENT HAS COMPLAINED OF PAIN THIS SHIFT AND MEDICATED PER EMAR. PATIENT HAS NOT COMPLAINED OF SOB, NAUSEA, OR VOMITTING THIS SHIFT. PATIENT HAS BEEN SLEEPING MOST OF SHIFT. PATIENT HAS BEEN WEARING BIPAP MOST OF SHIFT WITHOUT ISSUE. BED IN LOCKED AND LOWEST POSITION. CALL LIGHT IN PLACE. WILL MONITOR UNTIL SHIFT CHANGE.
[2023-05-26 05:53] LABS: Albumin, Blood 3.3 g/dL (3.4-5.0); Anion Gap 5 mmol/L (6-16); Blood Urea Nitrogen 45 mg/dL (8-24); Bun/Creatinine Ratio 9.9 (12.0-20.0); CO2, Blood 32 mmol/L (21-32); Calcium, Blood 8.5 mg/dL (8.5-10.1); Chloride, Blood 100 mmol/L (98-108); Creatinine, Blood 4.53 mg/dL (0.40-1.00); Ferritin, Serum 709 ng/mL (8-252); Glomerular Filtration Rate 11 (60-); Glucose, Blood 175 mg/dL (70-99); Iron Serum 30 ug/dL (50-170); Magnesium, Blood 2.8 mg/dL (1.6-2.4); Percent Saturation 21.9 % (15.0-50.0); Sodium, Blood 137 mmol/L (136-145); Total Iron Binding Capacity 137 ug/dL (250-450)
[2023-05-26] MEDS ORDERED: Anticoagulant Sod Citrate Soln 3 ML SYR INJ PRN (07:05)
[2023-05-26] MEDS ORDERED: Albumin (Human) 25gm/100ml 100 ML IV SCH (07:15)
[2023-05-26] MEDS ORDERED: Alteplase Recombinant 2 MG / Vial IV ONE (09:25)
[2023-05-26] MEDS ORDERED: LOKELMA10 GM PO (11:22)
[2023-05-26] MEDS ORDERED: HUMULIN R100 UNIT/2 SC (11:22)
[2023-05-26 13:20] LABS: Influenza A, PCR NEGATIVE (NEGATIVE); Influenza B, PCR NEGATIVE (NEGATIVE); SARS-Cov-2 (COVID-19) PCR, MMC NEGATIVE (NEGATIVE)
[2023-05-26 13:35] LABS: Resp Syncytial Virus, PCR POSITIVE (NEGATIVE)
--- NOTE | 2023-05-26 17:00 | NUR ---
DISCHARGED TO [facility] VIA W/C AFTER BEING MECHANICALLY LIFTED IN TO W/C. REPORT CALLED TO WOO AT [facility].
== END 2023-05-26 16:40 | DRG 640 ==
LOC: ER 10:08 → MEDS 12:14 → ENPENDDIS 05-26 09:53 → MEDS 05-26 16:40
PROVIDERS: Emergency Medicine; Internal Medicine Nephrology; Nurse Practitioner Acute Care; ADMIT Family Medicine
DX: E87.70 Fluid overload, unspecified (principal); I50.33 Acute on chronic diastolic (congestive) heart failure; J96.21 Acute and chronic respiratory failure with hypoxia; N18.6 End stage renal disease; J96.22 Acute and chronic respiratory failure with hypercapnia; I13.2 Hypertensive heart and chronic kidney disease with heart failure and with stage 5 chronic kidney disease, or end stage renal disease; E87.1 Hypo-osmolality and hyponatremia; E87.4 Mixed disorder of acid-base balance; J06.9 Acute upper respiratory infection, unspecified; B97.4 Respiratory syncytial virus as the cause of diseases classified elsewhere; E87.5 Hyperkalemia; D63.1 Anemia in chronic kidney disease; E11.649 Type 2 diabetes mellitus with hypoglycemia without coma; E11.22 Type 2 diabetes mellitus with diabetic chronic kidney disease; E11.40 Type 2 diabetes mellitus with diabetic neuropathy, unspecified; G47.30 Sleep apnea, unspecified; I89.0 Lymphedema, not elsewhere classified; E78.5 Hyperlipidemia, unspecified; F41.9 Anxiety disorder, unspecified; F32.A Depression, unspecified; E03.9 Hypothyroidism, unspecified; G47.00 Insomnia, unspecified; G89.4 Chronic pain syndrome; J44.9 Chronic obstructive pulmonary disease, unspecified; M19.90 Unspecified osteoarthritis, unspecified site; D72.819 Decreased white blood cell count, unspecified; E83.39 Other disorders of phosphorus metabolism; Z99.81 Dependence on supplemental oxygen; Z99.2 Dependence on renal dialysis; Z79.891 Long term (current) use of opiate analgesic; Z88.0 Allergy status to penicillin; Z79.82 Long term (current) use of aspirin; Z79.4 Long term (current) use of insulin; Z79.51 Long term (current) use of inhaled steroids; Z79.890 Hormone replacement therapy; Z72.0 Tobacco use; Z11.52 Encounter for screening for COVID-19
CPT/HCPCS: 0241U; 36415; 71045; 80048; 80053; 80069; 82330; 82607; 82728; 82746; 82803; 82947; 83540; 83550; 83735; 84484; 85025; 93005; 93010; 94640; 94660; 94664; 94762; 99285-25; A9270; J0612; J0881; J1644; J1815; J2930; J2997; P9047

== ENCOUNTER 2023-06-03 02:14 | Day surgery (SDC) | payer MEDICARE, OTHER ==
[~2023-06-03 02:14] MED LIST changes: +Calcium Acetat667 MG PO; +GUAI600T33 PO; +HUMULIN R100 UNIT/2 SC; +LOKELMA10 GM PO; +MORP15ER PO; +OXYC5 PO
[2023-06-03] MEDS ORDERED: Lidocaine HCl 4% Topical Soln 50 ML BTL ONE (12:32)
== END 2023-06-03 22:51 | disposition home or self-care (01) ==
LOC: WOUND 02:14
DX: T81.31XD Disruption of external operation (surgical) wound, not elsewhere classified, subsequent encounter (principal); I89.0 Lymphedema, not elsewhere classified; E10.622 Type 1 diabetes mellitus with other skin ulcer; L97.812 Non-pressure chronic ulcer of other part of right lower leg with fat layer exposed; L97.822 Non-pressure chronic ulcer of other part of left lower leg with fat layer exposed; E10.621 Type 1 diabetes mellitus with foot ulcer; L97.412 Non-pressure chronic ulcer of right heel and midfoot with fat layer exposed; S91.302D Unspecified open wound, left foot, subsequent encounter; S91.002D Unspecified open wound, left ankle, subsequent encounter; I83.228 Varicose veins of left lower extremity with both ulcer of other part of lower extremity and inflammation; S91.104D Unspecified open wound of right lesser toe(s) without damage to nail, subsequent encounter; L89.613 Pressure ulcer of right heel, stage 3; L03.115 Cellulitis of right lower limb; E10.42 Type 1 diabetes mellitus with diabetic polyneuropathy; Z72.0 Tobacco use; Y83.8 Other surgical procedures as the cause of abnormal reaction of the patient, or of later complication, without mention of misadventure at the time of the procedure

== ENCOUNTER 2023-07-15 02:24 | Day surgery (SDC) | payer MEDICARE, OTHER | END 2023-07-15 23:29 | disposition home or self-care (01) | LOC: WOUND 02:24 | DX: E10.622 Type 1 diabetes mellitus with other skin ulcer (principal); L97.812 Non-pressure chronic ulcer of other part of right lower leg with fat layer exposed; L97.822 Non-pressure chronic ulcer of other part of left lower leg with fat layer exposed; L97.412 Non-pressure chronic ulcer of right heel and midfoot with fat layer exposed; L97.512 Non-pressure chronic ulcer of other part of right foot with fat layer exposed; S91.302D Unspecified open wound, left foot, subsequent encounter; S91.002D Unspecified open wound, left ankle, subsequent encounter; I83.228 Varicose veins of left lower extremity with both ulcer of other part of lower extremity and inflammation; S91.104D Unspecified open wound of right lesser toe(s) without damage to nail, subsequent encounter; L89.613 Pressure ulcer of right heel, stage 3; L03.115 Cellulitis of right lower limb; E10.42 Type 1 diabetes mellitus with diabetic polyneuropathy; I89.0 Lymphedema, not elsewhere classified; R77.0 Abnormality of albumin; Z72.0 Tobacco use; E10.22 Type 1 diabetes mellitus with diabetic chronic kidney disease; N18.30 Chronic kidney disease, stage 3 unspecified | CPT/HCPCS: G0463 ==

== ENCOUNTER 2023-07-27 13:52 | Inpatient (IN) | payer MEDICARE, OTHER ==
[~2023-07-27] VITALS: Ht 182.9 cm; Wt 159.9 kg
[2023-07-27] VITALS (12 sets, daily range): BP systolic 101–176; BP diastolic 52–143
[~2023-07-27 13:52] MED LIST changes: +EUTHYROX125 MCG PO; -LEVSOD112 PO; -MIDO5 PO; +MIDODRINE HCL10 M2 PO
[2023-07-27 14:39] LABS: BASOPHILS ABSOLUTE AUTO 0.05 K/mm3 (0.00-0.23); BASOPHILS PERCENT AUTO 1 % (0-2); EOSINOPHILS ABSOLUTE AUTO 0.31 K/mm3 (0.00-0.68); EOSINOPHILS PERCENT AUTO 6 % (0-6); Hematocrit 31.6 % (33.0-51.0); IMMATURE GRAN ABSOLUTE AUTO 0.03 K/mm3 (0.00-0.10); IMMATURE GRAN PERCENT AUTO 1 % (0-1); LYMPHOCYTES ABSOLUTE AUTO 0.44 K/mm3 (0.84-5.20); LYMPHOCYTES PERCENT AUTO 9 % (21-46); MONOCYTES PERCENT AUTO 8 % (4-13); Mean Corpuscular HGB 31.4 pg (26.0-34.0); Mean Corpuscular HGB Conc 31.6 g/dL (31.5-36.5); Mean Corpuscular Volume 99 fL (80-100); Mean Platelet Volume 11.6 fL (9.1-12.4); NEUTROPHILS ABSOLUTE AUTO 3.93 K/mm3 (1.96-9.15); NEUTROPHILS PERCENT AUTO 76 % (41-73); Platelet Count 202 K/mm3 (150-400); RDW Coefficient Variation 14.9 % (11.7-14.2); RDW Standard Deviation 54.4 fL (35.1-46.3); Red Blood Cell Count 3.18 M/mm3 (3.80-5.20); White Blood Cell Count 5.16 K/mm3 (4.00-11.30)
[2023-07-27 15:13] LABS: Albumin, Blood 3.1 g/dL (3.4-5.0); Albumin/Globulin Ratio 0.7 (0.8-1.8); Bilirubin, Total 0.7 mg/dL (0.1-1.0); Bun/Creatinine Ratio 11.1 (12.0-20.0); Calcium, Blood 7.9 mg/dL (8.5-10.1); Creatinine, Blood 10.7 mg/dL (0.40-1.00); Globulin, Blood 4.2 g/dL (2.2-4.0); Potassium, Blood 6.1 mmol/L (3.5-5.5); Total Protein, Blood 7.3 g/dL (6.4-8.2)
[2023-07-27] MEDS ORDERED: Albuterol 2.5 MG/3 ML VIAL INH SCH (15:45)
[2023-07-27] MEDS ORDERED: Insulin Regular 100 Unit/ML 1ML Dose IV ONE ×2 (15:45→18:25)
[2023-07-27] MEDS ORDERED: Dextrose 50% 50 ML Syringe IV ONE (15:45)
[2023-07-27] MEDS ORDERED: Calcium Gluconate 10% 100 MG/ML INJ IV ONE (15:45)
[2023-07-27 16:05] LABS: Magnesium, Blood 3.5 mg/dL (1.6-2.4)
[2023-07-27 16:07] LABS: Thyroid Stimulating Hormone 2.8 uIU/mL (0.360-4.800)
[2023-07-27 16:57] LABS: Source, Urine Clean Catch
[2023-07-27 17:07] LABS: Appearance, Urine Turbid (Clear); Bilirubin, Urine Neg (Neg); Blood, Urine 5+ (Neg); Color, Urine Yellow (P-Yellow); Glucose Qualitative, Urine 4+ (Neg); Ketones, Urine Neg (Neg); Leukocyte Esterase, Urine 3+ (Neg); Nitrite, Urine Pos (Neg); Protein, Urine 3+ (Neg); Urobilinogen, Urine NORM (Normal)
[2023-07-27 17:26] LABS: Bacteria Many /hpf; Squamous Epithelial Cells Few /hpf (Few); White Blood Cells, Urine TNTC /hpf (0-5)
[2023-07-27 17:39] LABS: Base Excess Venous -11.3 mmol/L; Bicarbonate Venous 15.8 mmol/L (24.0-30.0); PCO2 Venous 47.7 mmHg (38-42); pH Blood Venous 7.17 (7.34-7.37)
[2023-07-27 17:44] LABS: Influenza A, PCR NEGATIVE (NEGATIVE); Influenza B, PCR NEGATIVE (NEGATIVE); Resp Syncytial Virus, PCR NEGATIVE (NEGATIVE); SARS-Cov-2 (COVID-19) PCR, MMC NEGATIVE (NEGATIVE)
[2023-07-27] MEDS ORDERED: NS 1,000 ML IV SCH (17:50)
[2023-07-27] MEDS ORDERED: CefTRIAXone Sodium 1,000 MG in NS 50 ML IV ONE (17:50)
[2023-07-27] MEDS ORDERED: Acetaminophen 325 MG TABLET PO PRN (18:20)
[2023-07-27] MEDS ORDERED: Sodium Bicarb 8.4% 1 MEQ/ML 50 ML Vial IV ONE (18:20)
[2023-07-27] MEDS ORDERED: Dextrose 10% 250 ML IV SCH (19:00)
[2023-07-27 19:54] LABS: Albumin, Blood 3.3 g/dL (3.4-5.0); Anion Gap 21 mmol/L (3-11); Blood Urea Nitrogen 119 mg/dL (8-24); CO2, Blood 20 mmol/L (21-32); Calcium, Blood 8.1 mg/dL (8.5-10.1); Chloride, Blood 96 mmol/L (98-108); Glomerular Filtration Rate 4 (60-); Glucose, Blood 191 mg/dL (70-99); Phosphorus, Blood 12.8 mg/dL (2.5-4.9); Potassium, Blood 5.7 mmol/L (3.5-5.5); Sodium, Blood 131 mmol/L (136-145)
[2023-07-27] MEDS ORDERED: Anticoagulant Sod Citrate Soln 3 ML SYR INJ PRN (20:05)
[2023-07-27] MEDS ORDERED: Insulin Glargine-Yfgn 100 Unit/mL 3 ML SYR SC SCH (21:00)
[2023-07-27] MEDS ORDERED: Insulin Regular 100 UNIT/ML 10ML Vial SC SCH (21:00)
[2023-07-27] MEDS ORDERED: Lactobacil 2-S.Thermo-Bifido 1 1 Cap PO SCH (21:00)
[2023-07-27 21:05] LABS: Phosphorus, Blood 13.3 mg/dL (2.5-4.9)
--- NOTE | 2023-07-27 21:41 | NUR ---
ADMISSION ASSESSMENT: PT ARRIVED TO PCU ROOM 1 FROM ED AT 2019. PT WAS TRANSFERRED TO BED ON SLIDER SHEET, NON AMBULATORY AT THIS TIME. REPORTS SHE USES A WALKER AT BASELINE BUT HAS BEEN UNABLE TO USE THE PAST FEW DAYS. SHE REPORTS SHE IS SUPPOSED TO GET DIALYSIS 3X WEEKLY BUT HAS NOT GONE SINCE THURSDAY. SHE IS AXO X 3 IN ROOM UNABLE TO STATE PRESIDENT. SHE IS HAVING HALLUCINATIONS IN ROOM STATING THINGS ARE "TOUCHING" AND "SPRAYING" HER. TALKING TO FAMILY MEMBERS WHO ARE NOT IN THE ROOM. PT ALSO DX WITH UTI WHICH COULD BE A CAUSE OF THE HALLUCINATIONS. PER ER NURSE THESE WERE NOTED IN ER WELL. PT DENEIS AND C/P. HR NSR AT 81BPM. DENIES ANY C/P. STATES ON/OFF SOB WITH COUGH, USES TRILOGY AT HOME, PLACED ON 2 L N/C IN ROOM TO MAINTAIN SATS OF 90-97%. SIDNEY N/V/D. HAS MULTIPLE CHRONIC WOUNDS TO ARMS AND LEGS. SCATTERED SCABS ON ARMS AND LARGE WOUND TO L LEG THAT IS MANAGED BY WOUND CLINIC, CURRENTLY DRESSED. SHE HAD WOUND TO R GREAT TOE WELL. MOEENY RECEIVING DIALYSIS IN THE ROOM. OBEYING COMMANDS BUT SLOW TO REPSOND AT TIMES. VSS AND ORIENTED TO ROOM AND CALL LIGHT. DIALYSIS NURSE AT BEDSIDE.
--- NOTE | 2023-07-27 23:00 | NUR ---
DIALYSIS COMPLETE AND PT IS SLEEPING IN ROOM. O2 REMAINING STABLE ON 2L.
[2023-07-28] VITALS (20 sets, daily range): BP systolic 11–160; BP diastolic 30–88
[2023-07-28 04:29] LABS: BASOPHILS ABSOLUTE AUTO 0.03 K/mm3 (0.00-0.23); BASOPHILS PERCENT AUTO 1 % (0-2); EOSINOPHILS ABSOLUTE AUTO 0.19 K/mm3 (0.00-0.68); EOSINOPHILS PERCENT AUTO 5 % (0-6); Hematocrit 28.6 % (33.0-51.0); IMMATURE GRAN ABSOLUTE AUTO 0.01 K/mm3 (0.00-0.10); IMMATURE GRAN PERCENT AUTO 0 % (0-1); LYMPHOCYTES ABSOLUTE AUTO 0.43 K/mm3 (0.84-5.20); LYMPHOCYTES PERCENT AUTO 11 % (21-46); MONOCYTES PERCENT AUTO 13 % (4-13); Mean Corpuscular HGB 30.9 pg (26.0-34.0); Mean Corpuscular HGB Conc 31.5 g/dL (31.5-36.5); Mean Corpuscular Volume 98 fL (80-100); Mean Platelet Volume 11.7 fL (9.1-12.4); NEUTROPHILS ABSOLUTE AUTO 2.85 K/mm3 (1.96-9.15); NEUTROPHILS PERCENT AUTO 71 % (41-73); Platelet Count 164 K/mm3 (150-400); RDW Coefficient Variation 14.9 % (11.7-14.2); RDW Standard Deviation 54.1 fL (35.1-46.3); Red Blood Cell Count 2.91 M/mm3 (3.80-5.20); White Blood Cell Count 4.01 K/mm3 (4.00-11.30)
[2023-07-28 05:27] LABS: Anion Gap 20 mmol/L (3-11); Blood Urea Nitrogen 96 mg/dL (8-24); Bun/Creatinine Ratio 10.3 (12.0-20.0); CO2, Blood 20 mmol/L (21-32); Calcium, Blood 7.7 mg/dL (8.5-10.1); Chloride, Blood 98 mmol/L (98-108); Creatinine, Blood 9.36 mg/dL (0.40-1.00); Glomerular Filtration Rate 5 (60-); Glucose, Blood 169 mg/dL (70-99); Phosphorus, Blood 10.7 mg/dL (2.5-4.9); Sodium, Blood 133 mmol/L (136-145)
--- NOTE | 2023-07-28 05:29 | NUR ---
LAB CALLED TO NOTIFY CRITICAL PHOS OF 10.7 AND CREATININE OF 9.36. MD NOT CALLED DUE TO LABS TRENDING IN RIGHT DIRECTION
--- NOTE | 2023-07-28 05:54 | NUR ---
PCU ROAD BUILDER SUMMARY: PT REMAINED STABLE THROUGHOUT THE SHIFT WITH NO ACUTE CHANGES IN CONDITION. AFTER INTIAIL ASSESSMENT, DIALYSIS WAS COMPLETE AND 3L WERE TAKEN OFF. REPEAT DIALYSIS PLANNED FOR THIS MORNING. CRITICAL LAB VALUES OF CREATININE AND PHOSPHORUS TRENDING DOWN IN A POSITIVE DIRECTION BUT STILL REMAIN CRITICAL. PT HAD STABLE CBGS THROUGHOUT THE NIGHT AND REQUIRED NO INSULIN. WOUND ON R PATEL WAS UNDRESSED, PHOTOGRAPHED AND REDRESSED WITH XEROFORM. PT HAD STABLE VITALS THROUGHOUT THE NIGHT. NEUROLOGICALLY, PT REMAINED AXO X 3 WITH TWITCHING AND HALLUCINATIONS. DENIED ANY C/P, SOB, OR N/V/D. CATHERTER HAD 15ML OUTPUT. PT DECLINED BED BATH UPON ADMISSION AND STATES SHE WANTED TO WAIT UNTIL HER SON BROUGHT IN HER STUFF FROM HOME THIS AM. WILL CONTINUE TO COMPLETE ORDERS AND PLACED AND REQUESTED UNTIL REPORT TO DAY SHIFT RN. ZHU SLEEPING IN BED WITH CPAP ON IN NO SIGNS OF DISTRESS.
--- NOTE | 2023-07-28 07:30 | NUR ---
Received in room report from NOC RN. Patient was awake and had minimal participation except small amount of hx. She moes UE and toes well. IV to LAC was leaking blood and removed. She was on 3L O@ and weaned down to 1L. She has dialysis port Right upper chest, Her bilateral LE from knees down were brown to bhright red to toes with many scabs and healing area. She had wound to right foot. She refused bath until son brought her own cleanser. She has dialysis at 0800.
[2023-07-28] MEDS ORDERED: Albumin (Human) 25gm/100ml 100 ML IV SCH (07:40)
[2023-07-28] MEDS ORDERED: Anticoagulant Sod Citrate Soln 3 ML SYR INJ PRN (07:40)
--- NOTE | 2023-07-28 08:15 | NUR ---
Patient taken to Dialysis.
[2023-07-28] MEDS ORDERED: Calcium Acetate 667 MG Gel Cap PO SCH (08:30)
[2023-07-28] MEDS ORDERED: Sodium Zirconium Cyclosilicate 10 GM Packet PO SCH (09:00)
[2023-07-28] MEDS ORDERED: Heparin Sodium,Porcine 5,000 UNIT/0.5 ML SDV SC SCH (09:00)
[2023-07-28] MEDS ORDERED: OxyCODONE HCL 5 MG TAB PO PRN (09:15)
--- NOTE | 2023-07-28 09:30 | NUR ---
Meds done in dialysis, tolerated well
[2023-07-28] MEDS ORDERED: Midodrine 5 MG Tab PO SCH ×2 (10:00→13:00)
[2023-07-28] MEDS ORDERED: FLUoxetine HCL 20 MG CAP PO SCH (10:00)
[2023-07-28] MEDS ORDERED: JARDIANCE10 MG PO (11:16)
--- NOTE | 2023-07-28 11:57 | NUR ---
Patient back from Dialysis, she is a little confused and she keeps grabbing her tele box and talking into it. Re-applied SPO2 sensoe and lead paches and hooked back up to monitor. She is 92% on RA, See VS.
[2023-07-28] MEDS ORDERED: OxyCODONE 5 mg/Acetamin 325 mg TABLET PO PRN (12:10)
--- NOTE | 2023-07-28 13:30 | NUR ---
Patienthas been resting in bed. PT going to work with patient. Placed POWER GLIDE 18ga 10cm in DIANA. Patient continues on RA and sats >90%. VSS. Sh was on bed edge and had large BM.
[2023-07-28] MEDS ORDERED: Darbepoetin Alfa In Albumn Sol 60 MCG/0.3 ML Syringe SC SCH (16:00)
--- NOTE | 2023-07-28 17:45 | NUR ---
Patient resting in bed. No significant changes with patient. She was up to bedside with PT but was at her limit for her today. She has 18ga PG in DIANA that is SL and 20ga IV in RH also SL'd. She had 50 ml of cloudy yellow urine from [facility]. She did well in dialysis today and VS stayed stable all day. She moes upper extremities well and slow to move lower extremities. Floated heels off and on today. She is awaiting dinner. CBG 138 for dinner and no coverage needed,
[2023-07-28] MEDS ORDERED: CefTRIAXone Sodium 1,000 MG in NS 100 ML IV SCH (18:00)
--- NOTE | 2023-07-28 19:00 | NUR ---
ASSUMPTION OF CARE NOC SHIFT[place] [address] AFTER REPORT FROM DAY SHIFT RN. UPON ASSESSMENT, PT IS AROUSABLE TO THIS RN PRESENCE. AXO X3-4 OFTEN FORGETFULL WITH AUDITORY AND VISUAL HALLUCINATIONS. SHE HAS GENERALIZED WEAKNESS IN EXTREMITIES AND NON-AMBULATORY AT THIS TIME. NO NEURO DEFICITS. SHE CURRENTLY DENIES ANY C/P OR SOB WITH 96BPM WITH BBB AND 92% ON ROOM AIR HOWEVER SHE USES A CPAP WHEN SLEEPING. BLOOD SUGARS ACHS HAVE BEEN IN CONTROL PER DAY SHIFT RN. SHE DENIES ANY N/V/D. LABS HAVE IMPROVED SINCE ADMISSION. PT SON HAS NOT COME TO VISIT AND PT REPORTS SHE WANTS TO WAIT FOR BATHING UNTIL HER BRINGS HER THINGS. SHE CURRENTLY IS RESTING IN BED AND DENIES ANY NEEDS. WILL CONTINUE TO COMPLETE ORDERS PLACED AND REQUESTED.
[2023-07-28] MEDS ORDERED: Gabapentin 300 MG Cap PO SCH (21:00)
[2023-07-28] MEDS ORDERED: Pravastatin Sodium 20 MG Tab PO SCH (21:00)
[2023-07-28] MEDS ORDERED: Gabapentin 400 MG Cap PO SCH (21:00)
[2023-07-29] VITALS (18 sets, daily range): BP systolic 86–163; BP diastolic 46–93
[2023-07-29 03:58] LABS: BASOPHILS ABSOLUTE AUTO 0.05 K/mm3 (0.00-0.23); BASOPHILS PERCENT AUTO 2 % (0-2); EOSINOPHILS ABSOLUTE AUTO 0.36 K/mm3 (0.00-0.68); EOSINOPHILS PERCENT AUTO 11 % (0-6); Hematocrit 28.8 % (33.0-51.0); IMMATURE GRAN ABSOLUTE AUTO 0.01 K/mm3 (0.00-0.10); IMMATURE GRAN PERCENT AUTO 0 % (0-1); LYMPHOCYTES ABSOLUTE AUTO 0.51 K/mm3 (0.84-5.20); LYMPHOCYTES PERCENT AUTO 15 % (21-46); MONOCYTES ABSOLUTE AUTO 0.44 K/mm3 (0.16-1.47); MONOCYTES PERCENT AUTO 13 % (4-13); Mean Corpuscular HGB 30.4 pg (26.0-34.0); Mean Corpuscular HGB Conc 31.3 g/dL (31.5-36.5); Mean Corpuscular Volume 97 fL (80-100); Mean Platelet Volume 11.6 fL (9.1-12.4); NEUTROPHILS ABSOLUTE AUTO 2.07 K/mm3 (1.96-9.15); NEUTROPHILS PERCENT AUTO 60 % (41-73); Platelet Count 173 K/mm3 (150-400); RDW Coefficient Variation 14.7 % (11.7-14.2); RDW Standard Deviation 53.5 fL (35.1-46.3); Red Blood Cell Count 2.96 M/mm3 (3.80-5.20); White Blood Cell Count 3.44 K/mm3 (4.00-11.30)
[2023-07-29 04:20] LABS: Magnesium, Blood 2.7 mg/dL (1.6-2.4)
--- NOTE | 2023-07-29 05:44 | NUR ---
NOC SHIFT SUMMARY: PT REMAINED STABLE THROUGHOUT THE NIGHT WITH NO ACUTE CHNAGES IN CONDITION. SHE WAS PLACED ON CPAP AT THE BEGINNING OF THE SHIFT PER REQUEST FOR SLEEPING AND ONLY TOOK IT OFF FOR BREAKS TO TAKE MEDICATIONS. SHE HAS A ZAMAN CATH THAT WAS DRAINING A SMALL AMOUNT OF CLOUDY URINE. DENIED ANY NEW PAIN. CONTINUED TO BE FORGETFUL AND HAVE HALUCINATIONS ASKING "ARE THOSE KIDS OUT THERE PLAYING STILL?" SHE TOOK MEDICATIONS ORDERED AND WAS ABLE TO SLEEP SOUNDLY THROUGHOUT THE NIGHT. [place], VSS, CALL LIGHT IN REACH. WILL CONTINUE TO COMPLETE ORDERS PLACED AND REQUESTED UNTIL REPORT TO DAY SHIFT RN.
[2023-07-29] MEDS ORDERED: Levothyroxine Sodium 0.125 MG Tab PO SCH (06:00)
[2023-07-29 06:18] LABS: Albumin, Blood 3.1 g/dL (3.4-5.0); Anion Gap 15 mmol/L (3-11); Blood Urea Nitrogen 62 mg/dL (8-24); Bun/Creatinine Ratio 8.3 (12.0-20.0); CO2, Blood 26 mmol/L (21-32); Calcium, Blood 7.5 mg/dL (8.5-10.1); Chloride, Blood 102 mmol/L (98-108); Creatinine, Blood 7.46 mg/dL (0.40-1.00); Glomerular Filtration Rate 6 (60-); Glucose, Blood 171 mg/dL (70-99); Phosphorus, Blood 8.4 mg/dL (2.5-4.9); Sodium, Blood 139 mmol/L (136-145)
[2023-07-29] MEDS ORDERED: Anticoagulant Sod Citrate Soln 3 ML SYR INJ PRN (07:15)
[2023-07-29] MEDS ORDERED: Insulin Regular 100 UNIT/ML 10ML Vial SC SCH (07:30)
--- NOTE | 2023-07-29 08:06 | NUR ---
CARE ASSUMPTION / DIALYSIS UPON CARE ASSUMPTION, PT SLEEPING WEARING CPAP W/ 5L O2. PT WOKE TO VERBAL STIMULATION & CPAP REMOVED. PT DENYING NEED FOR O2 WHILE AWAKE. SPO2 > 92% ON CPAP & THEN RA WELL. MONITOR SHOWING SR W/ PROLONGED QTC, HR 70s. VSS. PT TAKEN TO DIALYSIS @ APPROX 0800.
[2023-07-29] MEDS ORDERED: Calcium Acetate 667 MG Gel Cap PO SCH (12:30)
--- NOTE | 2023-07-29 15:40 | NUR ---
TRANSFER TO MEDICAL PT A&O X4. MEDICAL W/ TELEMETRY STATUS. VSS. SPO2 > 92% ON RA WHILE AWAKE. CPAP W/ 5L O2 WHILE SLEEPING. MONITOR SHOWING SR W/ PROLONGED QTC, HR 70s-80s. VSS. PT GONE TO DIALYSIS THIS AM. BP SOFT AFTER DIALYSIS, THEN IMPROVED W/ OUT NEED FOR INTERVENTION. PT W/ MULTIPLE SCABS SCATTERED T/O & WOUNDS TO BLE. PT REPORTS GOING TO WOUND CLINIC FOR TREATMENT OF BLE WOUNDS BUT DENIES KNOWING WOUND CARE REGIMEN. EXTENSIVE RLE WOUND CLEANSED & REDRESSED USING SAME MATERIALS REMOVED FROM WOUND. SCAB TO L GREAT TOE OPEN TO AIR. WOUND PICTURES TAKEN & PLACED IN CHART. REPORT GIVEN TO ACCEPTING NURSE ON MEDICAL FLOOR. PT TAKEN TO RM 364 BY BED ALONG W/ CPAP MACHINE & BELONGINGS @ APPROX 1520.
--- NOTE | 2023-07-29 17:40 | NUR ---
PT TRANSFERRED FROM [facility] REPORT RECEIVED FROM JESSICA DOLAN. PT SETTLED IN THE ROOM VITALS TAKEN AND WERE STABLE. MOM AT THE BEDSIDE WAS GIVEN UPDATE ABOUT PLAN OF CARE. BOTH PT AND MOM STATED THAT PT'S SON WILL PRAOVIDE TRANSPORTATION FOR PT TO DIALYSIS UPON DISCHARGE AND MAKE WORK SCHEDULE DOABLE WITH HER DIALYSIS SCHEDULE. PT IN BED NOW RESTING AWAITING FOR DINNER. CALL LIGHTS IN REACH WILL CONTINUE TO MONITOR
[2023-07-30] VITALS (15 sets, daily range): BP systolic 103–211; BP diastolic 42–140
[2023-07-30 04:49] LABS: Hematocrit 30.7 % (33.0-51.0); Hemoglobin 9.6 g/dL (11.5-16.0)
[2023-07-30 05:18] LABS: Magnesium, Blood 2.6 mg/dL (1.6-2.4)
--- NOTE | 2023-07-30 05:54 | NUR ---
SHIFT SUMMARY PT REQUESTED PAIN MEDS X1. PAIN WAS "8.5" THEN PT WAS ABLE TO FALL ASLEEP. LATER PT WAS ON PHONE CALL, AND TOLD THIS RN SHE WAS "DOING GREAT," AND "JUST ABOUT READY TO PUT ON THE CPAP AND GO TO BED." PT STATED SOME DISCOMFORT IN HER GROIN AREA. THIS RN NOTED CATHETER TUBING WAS TURNED IN WRONG DIRECTION AND STUCK BETWEEN HER LEGS. READJUSTED TUBING, WHICH SEEMED TO RELIEVE THE DISCOMFORT. PT HAS BEEN PLEASANT AND COOPERATIVE WITH HER CARE.
[2023-07-30 05:59] LABS: Albumin, Blood 3.2 g/dL (3.4-5.0); Anion Gap 14 mmol/L (3-11); Blood Urea Nitrogen 49 mg/dL (8-24); Bun/Creatinine Ratio 7.1 (12.0-20.0); CO2, Blood 28 mmol/L (21-32); Chloride, Blood 99 mmol/L (98-108); Creatinine, Blood 6.89 mg/dL (0.40-1.00); Glomerular Filtration Rate 7 (60-); Glucose, Blood 226 mg/dL (70-99); Phosphorus, Blood 8.3 mg/dL (2.5-4.9); Sodium, Blood 137 mmol/L (136-145)
[2023-07-30] MEDS ORDERED: Albumin (Human) 25gm/100ml 100 ML IV SCH (08:15)
[2023-07-30] MEDS ORDERED: Anticoagulant Sod Citrate Soln 3 ML SYR INJ PRN (08:15)
[2023-07-30] MEDS ORDERED: CEFD300 PO (17:00)
[2023-07-30] MEDS ORDERED: Prozac20 MG PO (17:01)
[2023-07-30] MEDS ORDERED: Percocet 5-3251 EACH PO (17:01)
--- NOTE | 2023-07-30 18:45 | NUR ---
SHIFT SUMMARY: PT A&O X4. MOMENTS OF BRIEF HALLUCINATIONS BUT ABLE TO QUICKLY COME OUT OF IT. SON CONCERNED REGARDING HALLUCINATIONS AND WOULD LIKE PT TO STAY ONE MORE NIGHT DESPITE DISCHARGE ORDERS IN PLACE. DR. RIVERS AWARE. HARD SCRIPT FOR PERCOCET IN CHART. PT RECEIVED DIALYSIS THIS AM. ZAMAN IN PLACE DRAINING YELLOW URINE TO GRAVITY. PT PICKING AT SCABS THROUGHOUT SHIFT. BANDAGED NEEDED. CALL LIGHT IN REACH. BED IN LOWEST POSITION. SON AT BEDSIDE.
[2023-07-31] VITALS (16 sets, daily range): BP systolic 113–167; BP diastolic 38–95
[2023-07-31 05:08] LABS: Hematocrit 30.5 % (33.0-51.0); Hemoglobin 9.7 g/dL (11.5-16.0)
[2023-07-31 05:35] LABS: Albumin, Blood 3.6 g/dL (3.4-5.0); Anion Gap 13 mmol/L (3-11); Blood Urea Nitrogen 41 mg/dL (8-24); Bun/Creatinine Ratio 6.3 (12.0-20.0); CO2, Blood 29 mmol/L (21-32); Calcium, Blood 8.3 mg/dL (8.5-10.1); Chloride, Blood 100 mmol/L (98-108); Creatinine, Blood 6.52 mg/dL (0.40-1.00); Glomerular Filtration Rate 7 (60-); Glucose, Blood 160 mg/dL (70-99); Magnesium, Blood 2.5 mg/dL (1.6-2.4); Phosphorus, Blood 7.6 mg/dL (2.5-4.9); Potassium, Blood 3.7 mmol/L (3.5-5.5); Sodium, Blood 138 mmol/L (136-145)
--- NOTE | 2023-07-31 06:18 | NUR ---
END OF SHIFT SUMMARY PT A&OX4. NO EPISODES OF CONFUSION OR HALLUCINATIONS WITNESSED. PT ON BIPAP WITH 3L BLEED IN, SAT MAINTAINED >92, MONITORED ON CONT PULSE OX. ZACHARY/SKIN CARE COMPLETED. ZAMAN D/C AT 0400, PT STATES BASELINE MIXED CONTINENCE AT HOME, DECREASED URINE OUTPUT PT ESRD ON HD. NO ACUTE EVENTS OVERNIGHT.
[2023-07-31] MEDS ORDERED: Anticoagulant Sod Citrate Soln 3 ML SYR INJ PRN (07:10)
[2023-07-31] MEDS ORDERED: Cefdinir 300 MG Cap PO SCH (16:00)
[2023-07-31] MEDS ORDERED: Thrombin 5000/Vial TOP ONE (18:25)
--- NOTE | 2023-07-31 19:36 | NUR ---
report received verified pt on bipap and waking up has early dialysis appointment. 0800 pt to dialysis. back from dialysis stated that she feels she should stay and that it would be esier to stay until tomorrow. i informed the dr who insisted if she didnt want to be charged she should leave. i also let the supportive employment case manager know and she assisted pt with making deision to go home. pt agreed and called so. transport ready for 1729. dc instructions given to son, both ivs dced and tele removed. p[t was then assisted to side of bed
--- NOTE | 2023-07-31 19:45 | NUR ---
pt was assisted to side of bed to transfer to wheel chair and after a minute of sitting large amounts of blood began seeping through leg dressing. i held pressure and returned pt to laying position, large amounts of blood saturated abd dressing. md was notified and resident was brought up to address the situation. a clotting agent was then brought by pharmacy to help stop bleeding. abd bandage was then reapplied and foot was elevated. pt possibly staying the night until tomorrow.
[2023-08-01] VITALS (9 sets, daily range): BP systolic 118–193; BP diastolic 60–105
--- NOTE | 2023-08-01 04:51 | NUR ---
SHIFT SUMMARY PATIENT IS ALERT AND ORIENTED. PATIENT HAS HAD NO ACUTE EVENTS THIS SHIFT. VITAL SIGNS REVIEWED. PATIENT HAS REPORTED PAIN IN BACK AND LEG THIS SHIFT AND MEDICATED PER EMAR. PATIENT HAS BEEN USING BIPAP WITH NO INCIDENTS ALL NIGHT. PATIENT HAS NO COMPLAINTS OF SOB, NAUSEA, VOMITTING THIS SHIFT. PATIENT WAS TRANSFERRED FROM [facility]. BED IN LOCKED AND LOWEST POSITION. CALL LIGHT IN PLACE. WILL MONITOR UNTIL SHIFT CHANGE.
[2023-08-01 05:49] LABS: Hematocrit 33.8 % (33.0-51.0); Hemoglobin 10.5 g/dL (11.5-16.0)
[2023-08-01 06:28] LABS: Albumin, Blood 3.8 g/dL (3.4-5.0); Anion Gap 15 mmol/L (3-11); Blood Urea Nitrogen 32 mg/dL (8-24); Bun/Creatinine Ratio 5.8 (12.0-20.0); CO2, Blood 27 mmol/L (21-32); Calcium, Blood 8.5 mg/dL (8.5-10.1); Chloride, Blood 101 mmol/L (98-108); Creatinine, Blood 5.49 mg/dL (0.40-1.00); Glomerular Filtration Rate 9 (60-); Glucose, Blood 167 mg/dL (70-99); Magnesium, Blood 2.4 mg/dL (1.6-2.4); Phosphorus, Blood 5.7 mg/dL (2.5-4.9); Potassium, Blood 3.8 mmol/L (3.5-5.5); Sodium, Blood 139 mmol/L (136-145)
[2023-08-01] MEDS ORDERED: Mag Hydrox/Al Hydrox/Simeth 18 ML,Lidocaine 2% Viscous Soln 9 ML,Atropine/Scopalam/Hyos... PO ONE (09:35)
--- NOTE | 2023-08-01 16:18 | NUR ---
DISCHARGE NOTE: MEDICAL TRANSPORT ARRIVED TO TAKE PATIENT BACK HOME. PAPERWORK PROVIDED TO MEDICAL TRANSPORT. BELONGINGS SENT WITH THEM AND PATIENT. NO SIGNS OR SYMPTOMS OF DISTRESS WITH PATIENT DURING DISCHARGE. PATIENT LEFT VIA GURNEY.
== END 2023-08-01 16:07 | disposition home or self-care (01) | DRG 70 ==
LOC: ER 13:52 → PCU 18:05 → MEDS 18:05 → PCU 20:15 → MEDS 07-29 15:28 → ENPENDDIS 07-30 13:23 → MEDS 07-31 19:33
PROVIDERS: Internal Medicine Nephrology; Physician Assistant; Student in an Organized Health Care Education/Training Program; ADMIT Student in an Organized Health Care Education/Training Program
PROC: 5A1D70Z Performance of Urinary Filtration, Intermittent, Less than 6 Hours Per Day (ICD-10-PCS; principal; 2023-07-27)
PROC: 5A09357 Assistance with Respiratory Ventilation, Less than 24 Consecutive Hours, Continuous Positive Airway Pressure (ICD-10-PCS; 2023-07-27)
DX: G93.41 Metabolic encephalopathy (principal); N18.6 End stage renal disease; I50.32 Chronic diastolic (congestive) heart failure; I13.2 Hypertensive heart and chronic kidney disease with heart failure and with stage 5 chronic kidney disease, or end stage renal disease; N39.0 Urinary tract infection, site not specified; E87.4 Mixed disorder of acid-base balance; E87.1 Hypo-osmolality and hyponatremia; Z68.41 Body mass index [BMI] 40.0-44.9, adult; E87.5 Hyperkalemia; G89.29 Other chronic pain; E66.01 Morbid (severe) obesity due to excess calories; E10.22 Type 1 diabetes mellitus with diabetic chronic kidney disease; F17.210 Nicotine dependence, cigarettes, uncomplicated; G47.30 Sleep apnea, unspecified; J44.9 Chronic obstructive pulmonary disease, unspecified; E83.52 Hypercalcemia; D63.1 Anemia in chronic kidney disease; E83.39 Other disorders of phosphorus metabolism; E83.51 Hypocalcemia; E03.9 Hypothyroidism, unspecified; M19.90 Unspecified osteoarthritis, unspecified site; G47.00 Insomnia, unspecified; E78.5 Hyperlipidemia, unspecified; Z98.890 Other specified postprocedural states; Z79.890 Hormone replacement therapy; Z88.0 Allergy status to penicillin; Z99.2 Dependence on renal dialysis; Z79.899 Other long term (current) drug therapy; Z79.82 Long term (current) use of aspirin; Z79.4 Long term (current) use of insulin; Z79.891 Long term (current) use of opiate analgesic; Z91.158 Patient's noncompliance with renal dialysis for other reason; Z79.01 Long term (current) use of anticoagulants; Z86.14 Personal history of Methicillin resistant Staphylococcus aureus infection; Z90.710 Acquired absence of both cervix and uterus
CPT/HCPCS: 0241U; 36415; 51702; 80053; 80069; 81001; 82010; 82803; 82947; 83036; 83605; 83735; 83880; 83970; 84100; 84443; 84484; 85014; 85018; 85025; 87040; 87077; 87086; 87186; 93005; 93010; 93308; 93321; 94644; 94660; 94664; 94762; 96361; 96365; 96375; 97162; 97530; 99285-25; A9270; J0612; J0696; J0881; J1644; J1815; J7030; P9047

== ENCOUNTER 2023-08-06 02:45 | Day surgery (SDC) | payer MEDICARE, OTHER ==
[~2023-08-06 02:45] MED LIST changes: +CEFD300 PO; +JARDIANCE10 MG PO; +Percocet 5-3251 EACH PO
== END 2023-08-06 22:45 | disposition home or self-care (01) ==
LOC: WOUND 02:45
DX: E10.621 Type 1 diabetes mellitus with foot ulcer (principal); L97.412 Non-pressure chronic ulcer of right heel and midfoot with fat layer exposed; L97.512 Non-pressure chronic ulcer of other part of right foot with fat layer exposed; L97.812 Non-pressure chronic ulcer of other part of right lower leg with fat layer exposed; L97.822 Non-pressure chronic ulcer of other part of left lower leg with fat layer exposed; T81.30XA Disruption of wound, unspecified, initial encounter; S91.302D Unspecified open wound, left foot, subsequent encounter; S91.002D Unspecified open wound, left ankle, subsequent encounter; S91.104D Unspecified open wound of right lesser toe(s) without damage to nail, subsequent encounter; X58.XXXD Exposure to other specified factors, subsequent encounter; I83.228 Varicose veins of left lower extremity with both ulcer of other part of lower extremity and inflammation; L89.613 Pressure ulcer of right heel, stage 3; L03.115 Cellulitis of right lower limb; E10.42 Type 1 diabetes mellitus with diabetic polyneuropathy; I87.9 Disorder of vein, unspecified; R77.0 Abnormality of albumin; Z72.0 Tobacco use
CPT/HCPCS: G0463

== ENCOUNTER 2023-09-16 12:54 | Inpatient (IN) | payer MEDICARE, OTHER ==
[2023-09-16] VITALS (11 sets, daily range): BP systolic 102–138; BP diastolic 66–92
[~2023-09-16] VITALS: Ht 182.9 cm; Wt 136.1 kg
[2023-09-16 13:51] LABS: BASOPHILS ABSOLUTE AUTO 0.04 K/mm3 (0.00-0.23); BASOPHILS PERCENT AUTO 1 % (0-2); EOSINOPHILS ABSOLUTE AUTO 0.17 K/mm3 (0.00-0.68); EOSINOPHILS PERCENT AUTO 4 % (0-6); Hemoglobin 6.7 g/dL (11.5-16.0); IMMATURE GRAN ABSOLUTE AUTO 0.01 K/mm3 (0.00-0.10); IMMATURE GRAN PERCENT AUTO 0 % (0-1); LYMPHOCYTES ABSOLUTE AUTO 0.36 K/mm3 (0.84-5.20); LYMPHOCYTES PERCENT AUTO 8 % (21-46); MONOCYTES ABSOLUTE AUTO 0.35 K/mm3 (0.16-1.47); MONOCYTES PERCENT AUTO 8 % (4-13); Mean Corpuscular HGB 29.4 pg (26.0-34.0); Mean Corpuscular HGB Conc 30.5 g/dL (31.5-36.5); Mean Corpuscular Volume 97 fL (80-100); Mean Platelet Volume 11.7 fL (9.1-12.4); NEUTROPHILS ABSOLUTE AUTO 3.67 K/mm3 (1.96-9.15); NEUTROPHILS PERCENT AUTO 80 % (41-73); Platelet Count 199 K/mm3 (150-400); RDW Coefficient Variation 15.3 % (11.7-14.2); RDW Standard Deviation 53.6 fL (35.1-46.3); Red Blood Cell Count 2.28 M/mm3 (3.80-5.20)
[2023-09-16 14:14] LABS: Albumin, Blood 2.5 g/dL (3.4-5.0); Albumin/Globulin Ratio 0.6 (0.8-1.8); Bilirubin, Total 0.5 mg/dL (0.1-1.0); Bun/Creatinine Ratio 7.1 (12.0-20.0); Calcium, Blood 8.5 mg/dL (8.5-10.1); Creatinine, Blood 6.04 mg/dL (0.40-1.00); Globulin, Blood 4.3 g/dL (2.2-4.0); Potassium, Blood 4.9 mmol/L (3.5-5.5); Total Protein, Blood 6.8 g/dL (6.4-8.2)
[2023-09-16] MEDS ORDERED: NS 1,000 ML IV SCH ×3 (14:40→16:25)
[2023-09-16] MEDS ORDERED: Vancomycin HCL 1,250 MG in NS 262.5 ML IV ONE (14:45)
[2023-09-16] MEDS ORDERED: Cefepime HCl 1,000 MG in NS 100 ML IV ONE (14:45)
[2023-09-16] MEDS ORDERED: Magnesium Hydroxide Conc 10 ML UDC PO PRN (15:45)
[2023-09-16] MEDS ORDERED: Ondansetron HCl 2 MG / ML 2ML Vial IV PRN (15:50)
[2023-09-16] MEDS ORDERED: Acetaminophen 325 MG TABLET PO PRN (15:50)
[2023-09-16] MEDS ORDERED: Vancomycin HCL 1,250 MG in NS 250 ML IV ONE (17:15)
[2023-09-16 17:47] LABS: Percent Saturation 21.3 % (15.0-50.0)
[2023-09-16] MEDS ORDERED: OXYC10TA19 PO (18:22)
[2023-09-16] MEDS ORDERED: OxyCODONE HCL 5 MG TAB PO PRN (18:50)
[2023-09-16] MEDS ORDERED: Mometasone/Formoterol MDI 100/5 mcg 13 GM INH SCH (18:55)
[2023-09-16] MEDS ORDERED: Albuterol 2.5 MG/3 ML VIAL INH PRN (19:25)
--- NOTE | 2023-09-16 19:41 | NUR ---
ADMISSION AND SHIFT SUMMARY: NEURO: PATIENT ARRIVED TO THE UNIT ALERT AND ORIENTED WITH SOME FATIGUE. THE SHIFT PROGRESSED, PATIENT WAS COMPLETELY AWAKE WITHOUT DRIFTING TO SLEEP. PATIENT ALERT AND ORIENTED X4. PATIENT ABLE TO MAKE NEEDS KNOWN. PATIENT REPORTS CHRONIC BACK PAIN. PATIENT ABLE TO MOVE LIMBS EQUALLY, WEAKLY, BILATERALLY. PATIENT REPORTS NUMBNESS/TINGLING IN BLE AT NIGHTTIME AT BASELINE. PATIENT OVER FPC OF HER UNIT OF BLOOD. PATIENT TOLERATING WELL WITHOUT SIGNS OF A REACTION. RESPIRATORY: PATIENT ARRIVED TO UNIT WITH SOME MINIMAL WHEEZES IN UPPER LOBES. THESE RESOLVED THE SHIFT PROGRESSED. PATIENT DID NOT APPEAR TO BE IN ANY RESPIRATORY DISTRESS. PATIENT REPORTED SOME SHORTNESS OF BREATH WITH LYING FLAT AND THAT IMPROVED WITH SITTING UP. NOTIFIED MD. BD PROTOCOL ORDERED. NOTIFIED RT OF REQUEST FOR BREATHING TREATMENT. RT AT BEDSIDE BY END OF SHIFT. PATIENT STABLE ON ROOM AIR WHEN SITTING UP (SPO2 >96%). WHEN LYING FLAT, PATIENT REQUIRED 2L O2 VIA NC TO MAINTAIN SPO2 >90%. CARDIAC: PATIENT ON TELEMETRY. PATIENT NORMAL SINUS IN THE 80S. BLOOD PRESSURES STABLE WITH MAPS >65. PATIENT REPORTED SOME CHEST TIGHTNESS OF DIFFICULTY TAKING A FULL BREATH FOR THE LAST TWO DAYS. NOTIFIED NOC RN. GI/: PATIENT IS A HEMODIALYSIS PATIENT. PERMACATH IN THE RIGHT UPPER CHEST WALL. DRESSING C/D/I. SURROUNDING SKIN APPEARS NORMAL COLOR. NO SWELLING OR SIGNS OF INFECTION. PATIENT OLIGURIC. PUREWICK IN PLACE. PATIENT TOLERATING PO INTAKE WITHOUT DIFFICULTY. PSYCHSOCIAL: PATIENT CALM AND COOPERATIVE. NOTIFIED PATIENT'S SON JOE OF ADMISSION TO UNIT PER PATIENT'S REQUEST. PATIENT REPORTS THAT HE IS SUPPORTIVE OF HER AND HELPS WITH HER ADLS. WOUNDS: PATIENT HAS MULTIPLE WOUNDS. PATIENT HAS MULTIPLE PRESSURE INJURYS ON THE RIGHT GLUTEAL FOLD THAT EXTENDING FROM ABOUT THE MIDDLE OF THE BUTTOCKS TO THE LOWER BACK. NO DISCHARGE NOTED AT TIME OF ADMISSION. BARRIER CREAM AND MEPILEX IN PLACE. PATIENT'S RIGHT CALF WAS DRESSED IN THE ED. DRESSING IS C/D/I. PATIENT HAS IRRITATED SKIN UNDER HER LEFT PANNUS. PATIENT HAS MULTIPLE SCABS ON BLE AND BUE. PATIENT SCRATCHES AT THE ONES ON HER ARMS. SOME DRIED AND FRESH BLOOD NOTED. SOME REDNESS UNDER BILATERAL BREASTS. NOTIED NOC RN OF NEED FOR PICTURES.
--- NOTE | 2023-09-16 19:43 | NUR ---
PRESSURE INJURIES NOTIFIED WIGGINS INTERN ARCHITECT REGARDING PATIENTS MULTIPLE (STAGE 2) R GLUTEAL/SACRAL PRESSURE INJURIES
[2023-09-16] MEDS ORDERED: Darbepoetin Alfa In Albumn Sol 60 MCG/0.3 ML Syringe SC SCH (20:00)
--- NOTE | 2023-09-16 20:20 | NUR ---
WHILE PRIMARY RN ON BREAK, THIS RN OBTAINED CBG.
[2023-09-16] MEDS ORDERED: Midodrine 5 MG Tab PO ONE (20:30)
[2023-09-16] MEDS ORDERED: DiphenhydrAMINE HCL 25 MG Cap PO PRN (20:30)
--- NOTE | 2023-09-16 20:30 | NUR ---
HOME MEDICATIONS Pt reports taking benadryl at home PRN for itching. Call placed to Dr Soto and order placed.
[2023-09-16] MEDS ORDERED: Atorvastatin 10 MG Tab PO SCH (21:00)
--- NOTE | 2023-09-16 22:00 | NUR ---
ASSUMTPION OF CARE Pt in hospital bed, alert and oriented x4, spo2 greater than 92% on room air, monitor shows sinus rhythm, stable BP's, PRBC infusion complete upon assumption of care at 1900. Dialysis port to right upper chest, pt reports getting dialysis Thursday//Thursday, has not missed an appointment this week with next appointment tomorrow 09/17/23. Pt has multiple wounds throughout body, most significant to right lower extremity, photos completed, and dressing replaced to right leg. Mepilex replaced to sacrum/coccyx. Pt tolerating PO intake, plan for NPO at midnight, pt aware. Pt states oliguric at baseline, purewick in place.
[2023-09-17] VITALS (17 sets, daily range): BP systolic 98–144; BP diastolic 41–94
[2023-09-17 05:18] LABS: BASOPHILS ABSOLUTE AUTO 0.03 K/mm3 (0.00-0.23); BASOPHILS PERCENT AUTO 1 % (0-2); EOSINOPHILS ABSOLUTE AUTO 0.39 K/mm3 (0.00-0.68); EOSINOPHILS PERCENT AUTO 9 % (0-6); Hemoglobin 7.3 g/dL (11.5-16.0); IMMATURE GRAN ABSOLUTE AUTO 0.02 K/mm3 (0.00-0.10); IMMATURE GRAN PERCENT AUTO 1 % (0-1); LYMPHOCYTES ABSOLUTE AUTO 0.45 K/mm3 (0.84-5.20); LYMPHOCYTES PERCENT AUTO 10 % (21-46); MONOCYTES ABSOLUTE AUTO 0.36 K/mm3 (0.16-1.47); MONOCYTES PERCENT AUTO 8 % (4-13); Mean Corpuscular HGB 29.2 pg (26.0-34.0); Mean Corpuscular HGB Conc 30.4 g/dL (31.5-36.5); Mean Corpuscular Volume 96 fL (80-100); Mean Platelet Volume 11.3 fL (9.1-12.4); NEUTROPHILS ABSOLUTE AUTO 3.07 K/mm3 (1.96-9.15); NEUTROPHILS PERCENT AUTO 71 % (41-73); Platelet Count 213 K/mm3 (150-400); RDW Coefficient Variation 15.3 % (11.7-14.2); White Blood Cell Count 4.32 K/mm3 (4.00-11.30)
[2023-09-17 05:39] LABS: Alanine Aminotransfer (ALT/SGP 52 U/L (12-78); Albumin, Blood 2.4 g/dL (3.4-5.0); Albumin/Globulin Ratio 0.5 (0.8-1.8); Alk Phos 459 U/L (50-136); Anion Gap 11 mmol/L (3-11); Aspartate Aminotrans (AST/SGOT 21 U/L (12-37); Bilirubin, Total 0.5 mg/dL (0.1-1.0); Blood Urea Nitrogen 48 mg/dL (8-24); Bun/Creatinine Ratio 7.1 (12.0-20.0); CO2, Blood 30 mmol/L (21-32); Calcium, Blood 8.4 mg/dL (8.5-10.1); Chloride, Blood 100 mmol/L (98-108); Globulin, Blood 4.5 g/dL (2.2-4.0); Glomerular Filtration Rate 7 (60-); Glucose, Blood 154 mg/dL (70-99); Magnesium, Blood 2.2 mg/dL (1.6-2.4); Phosphorus, Blood 7.4 mg/dL (2.5-4.9); Potassium, Blood 4.9 mmol/L (3.5-5.5); Sodium, Blood 136 mmol/L (136-145); Total Protein, Blood 6.9 g/dL (6.4-8.2); Vancomycin, Random 28.5 ug/mL
[2023-09-17] MEDS ORDERED: Levothyroxine Sodium 0.125 MG Tab PO SCH (06:00)
--- NOTE | 2023-09-17 06:00 | NUR ---
SHIFT SUMMARY Pt rested well throughout night, remains oriented, Spo2 maintained greater than 92% on room air while awake and cpap while sleeping. Monitor shows sinus rhythm, HR 80's, BP stable. Pt NPO since midnight except sip of water with AM thyroid medication. Purewick remains in place. Dr Shelton rounded on patient this AM, notified this RN to keep pt NPO and he will contact Ortho directely for surgery consult on right leg.
[2023-09-17 06:07] LABS: BASOPHILS ABSOLUTE MAN 0.04 K/mm3 (0.00-0.23); BASOPHILS PERCENT MAN 1 % (0-2); EOSINOPHILS PERCENT MAN 7 % (0-6); LYMPHOCYTES ABSOLUTE MAN 0.51 K/mm3 (0.84-5.20); LYMPHOCYTES PERCENT MAN 12 % (21-46); MONOCYTES ABSOLUTE MAN 0.34 K/mm3 (0.16-1.47); MONOCYTES PERCENT MAN 8 % (4-13); NEUTROPHILS ABSOLUTE MAN 3.11 K/mm3 (1.96-9.15); SEG NEUTROPHILS PERCENT MAN 72 % (41-73); TOTAL CELLS COUNTED 100
[2023-09-17] MEDS ORDERED: Calcium Acetate 667 MG Gel Cap PO SCH (08:30)
[2023-09-17] MEDS ORDERED: Insulin Human Lispro 100 Units/ML 3ML Syringe SC SCH ×2 (08:30→21:10)
[2023-09-17] MEDS ORDERED: Anticoagulant Sod Citrate Soln 3 ML SYR INJ PRN (08:55)
[2023-09-17] MEDS ORDERED: Midodrine 5 MG Tab PO SCH (09:00)
[2023-09-17] MEDS ORDERED: Vitamin B Cmplx/Vit C/Folic Ac 1 Tab PO SCH (09:00)
[2023-09-17] MEDS ORDERED: FLUoxetine HCL 20 MG CAP PO SCH (09:00)
[2023-09-17] MEDS ORDERED: DiphenhydrAMINE HCl 50 MG/ML 1ML Vial IV PRN (09:20)
[2023-09-17] MEDS ORDERED: NS 250 ML IV PRN (15:25)
[2023-09-17] MEDS ORDERED: Cefepime HCl 1,000 MG in NS 100 ML IV SCH (16:00)
--- NOTE | 2023-09-17 18:32 | NUR ---
END OF SHIFT PT A&O X4. VSS. SPO2 > 92% ON RA. CPAP AT BEDSIDE. PT GONE TO DIALYSIS THIS AM. MD GIVENS & MD KANG TO PT BEDSIDE FOR RLE EVALUATION. PT REQUESTS TIME TO MAKE A DECISION REGARDING AMPUTATION. WOUND CLEANSED & REDRESSED THIS SHIFT.
--- NOTE | 2023-09-17 20:00 | NUR ---
ASSESSMENT/ASSUMED CARE PT AWAKE SITTING UP IN BED WATCHING TV. DENIES PAIN AT THIS TIME. INCONT OF STOOL. ZACHARY CARE DONE AND ATTENDS CHANGED. INTERDRY FABRIC PLACED UNDER LEFT BREAST AND PANUS AFTER CLEANING AND PAT DRY. DRSG TO RIGHT LOWER EXT INTACT. LEFT LEG WITH WOUNDS OPEN TO AIR. IV TO LEFT AC AND RIGHT WRIST SALINE LOCKED. DIALYSIS CATH TO RIGHT CHEST WALL DRSG CD&I, SITE CLEAR.
--- NOTE | 2023-09-17 21:06 | NUR ---
CALL TO MD REGARDING BLOOD GLUCOSE OF 305. CHANGED INSULIN SLIDING SCALE TO AC/HS.
[2023-09-18] VITALS (24 sets, daily range): BP systolic 95–198; BP diastolic 45–101
[2023-09-18 05:24] LABS: Hematocrit 22.6 % (33.0-51.0); Hemoglobin 6.9 g/dL (11.5-16.0); Mean Corpuscular HGB 29.6 pg (26.0-34.0); Mean Corpuscular HGB Conc 30.5 g/dL (31.5-36.5); Mean Corpuscular Volume 97 fL (80-100); Mean Platelet Volume 10.9 fL (9.1-12.4); Platelet Count 207 K/mm3 (150-400); RDW Coefficient Variation 15.4 % (11.7-14.2); Red Blood Cell Count 2.33 M/mm3 (3.80-5.20); White Blood Cell Count 3.54 K/mm3 (4.00-11.30)
--- NOTE | 2023-09-18 05:24 | NUR ---
SHIFT SUMMARY PATIENT IS ALERT AND ORIENTED. PATIENT HAS HAD NO ACUTE EVENTS THIS SHIFT. VITAL SIGNS REVIEWED. PATIENT HAS BEEN SATTING >92% MOST OF SHIFT WHILE ON CPAP WITH 4L BLEED IN. PATIENT HAS BEEN PLEASENT AND COOPERATIVE WITH CARE. PATIENT HAS NOT COMPLAINED OF PAIN, NAUSEA, SOB OR VOMITTING THIS SHIFT. VITAL SIGNS REVIEWED. DRESSINGS TO RIGHT LOWER EXT INTACT. LEFT LEG WOUNDS ACQUISITIONS ASSISTANT. PATIENT TURNED NEEDED. BED IN LOCKED AND LOWEST POSITION. IV SALINE LOCKED.
--- NOTE | 2023-09-18 05:40 | NUR ---
PROVIDER CONTACT- ATTEMPTED TO CALL DR DE JESUS ABOUT PATIENTS 6.9 HGB. AWAITING PHONE CALL.
[2023-09-18 05:52] LABS: Albumin, Blood 2.3 g/dL (3.4-5.0); Anion Gap 7 mmol/L (3-11); Blood Urea Nitrogen 41 mg/dL (8-24); Bun/Creatinine Ratio 6.8 (12.0-20.0); CO2, Blood 33 mmol/L (21-32); Calcium, Blood 8.4 mg/dL (8.5-10.1); Chloride, Blood 98 mmol/L (98-108); Creatinine, Blood 6.04 mg/dL (0.40-1.00); Glomerular Filtration Rate 8 (60-); Glucose, Blood 286 mg/dL (70-99); Magnesium, Blood 2.8 mg/dL (1.6-2.4); Phosphorus, Blood 7.3 mg/dL (2.5-4.9); Potassium, Blood 4.3 mmol/L (3.5-5.5); Sodium, Blood 134 mmol/L (136-145); Vancomycin, Random 9.8 ug/mL
[2023-09-18] MEDS ORDERED: Anticoagulant Sod Citrate Soln 3 ML SYR INJ PRN (08:20)
[2023-09-18] MEDS ORDERED: Vancomycin HCL 2,500 MG in NS 250 ML IV SCH (12:00)
[2023-09-18 14:15] LABS: Hematocrit 29.4 % (33.0-51.0); Hemoglobin 9.3 g/dL (11.5-16.0)
[2023-09-18 17:16] LABS: HEPATITIS B SURFACE ANTIBODY <3.10 IU/L
--- NOTE | 2023-09-18 17:30 | NUR ---
ASSUMED CARE OF PT AT O700 THIS AM. SEE DOCUMENTED VS AND ASSESSMENT. PT TO HD AT 0845, GIVEN 2 UNIT PRBCs ALONG WITH HD, AND RETURNED TO ROOM APROX 1215. REPORTED TO HAVE TOLERATED HD WELL W/O COMPLICATIONS. PT HAS HAD FEW COMPLAINTS, MEDICATED FOR CHRONIC PAIN PER ORDERS. IV TO L AC FOUND TO BE DISLODGED AFTER HD, REPLACED WITH ANOTHER IV IN L UPPER ARM, PT GIVEN ABX PER ORDERS. DRESSINGS TO RLE C/D/I AND LEFT IN PLACE. NO ACUTE CHANGES T/O THE SHIFT. PT IS A&OX4 AND ABLE TO USE CALL LIGHT FOR NEEDS. CALL LIGHT IN REACH AT THIS TIME. WILL CONTINUE TO MONITOR AND GIVE REPORT TO NOC SHIFT RN.
[2023-09-18] MEDS ORDERED: Lactobacil 2-S.Thermo-Bifido 1 1 Cap PO SCH (21:00)
[2023-09-18] MEDS ORDERED: Gabapentin 300 MG Cap PO SCH (21:00)
[2023-09-18] MEDS ORDERED: Insulin Glargine-Yfgn 100 Unit/mL 3 ML SYR SC SCH (22:00)
[2023-09-19] VITALS (17 sets, daily range): BP systolic 103–143; BP diastolic 44–109
[2023-09-19 04:30] LABS: Hematocrit 28.3 % (33.0-51.0); Hemoglobin 8.8 g/dL (11.5-16.0)
[2023-09-19 04:51] LABS: Albumin, Blood 2.3 g/dL (3.4-5.0); Anion Gap 9 mmol/L (3-11); Blood Urea Nitrogen 29 mg/dL (8-24); Bun/Creatinine Ratio 5.9 (12.0-20.0); CO2, Blood 33 mmol/L (21-32); Calcium, Blood 8.5 mg/dL (8.5-10.1); Chloride, Blood 99 mmol/L (98-108); Creatinine, Blood 4.93 mg/dL (0.40-1.00); Glomerular Filtration Rate 10 (60-); Glucose, Blood 368 mg/dL (70-99); Magnesium, Blood 2.6 mg/dL (1.6-2.4); Potassium, Blood 4.4 mmol/L (3.5-5.5); Sodium, Blood 137 mmol/L (136-145)
--- NOTE | 2023-09-19 05:25 | NUR ---
SHIFT SUMMARY PT A&O X4, ABLE TO MAKE NEEDS KNOWN. NO ACUTE EVENTS THIS SHIFT. VSS, AFEBRILE, LUNGS DIMINISHED IN THE BASES, SPO2 >92% ON 1.5L NC. PT WORE CPAP WHILE ASLEEP. PAIN MEDICATED PER EMAR. DRESSING TO RLE C/D/I. PT IS NOW RESTING COMFORTABLY, CALL LIGHT WITHIN REACH, BREATHING EVEN AND UNLABORED.
--- NOTE | 2023-09-19 15:27 | NUR ---
ASSUMED CARE OF PT AT 0700 THIS AM. PT TO HD AT 0900, TOLERATED WELL, AND RETURNED TO THE [facility] APROX 1120. PT RECEIVED A BED BATH THIS AFTERNOON. WOUND CARE PREFORMED TO BLEs. WOUND CARE ORDERS PLACED BASED ON WHAT THE PT CAN REPORT ABOUT HER USUAL WOUND CARE ROUTINE, PT IS A RELIABLE HISTORIAN. NO ACUTE EVENTS, PT HAS HAD NO COMPLAINTS OR CONCERNS. PT HAS REMAINED A&OX4, ABLE TO USE CALL LIGHT AND MAKE NEEDS KNOWN. REPORT GIVEN TO MAGDALENO CASTRO FOR PT TRANSFER TO ROOM 306.
--- NOTE | 2023-09-19 18:11 | NUR ---
RN NOTE MS KERNS TRANSFERED TO MEDICAL UNIT FROM PCU AT 1715HRS VIA BED. SHE C/O R LEG AND BACK PAIN, GIVEN OXY WITH SLIGHT RELIEF, ALSO C/O "STOMACH UPSET" AND NAUSEA, GIVEN ZOFRAN AND SOON AFTER SHE FELT GOOD ENOUGH TO EAT HER SUPPER. WOUND DRESSINGS TO LEGS C,D,I. SHE IS ORIENTATED TO SELF, PLACE AND DATE, USES CALL LIGHT APPROPRIATELY. BED LOW, CALL LIGHT IN REACH.
[2023-09-19] MEDS ORDERED: Insulin Glargine-Yfgn 100 Unit/mL 3 ML SYR SC SCH (21:00)
[2023-09-20] VITALS (15 sets, daily range): BP systolic 98–172; BP diastolic 47–86
[2023-09-20 04:18] LABS: BASOPHILS ABSOLUTE AUTO 0.03 K/mm3 (0.00-0.23); BASOPHILS PERCENT AUTO 1 % (0-2); EOSINOPHILS ABSOLUTE AUTO 0.42 K/mm3 (0.00-0.68); EOSINOPHILS PERCENT AUTO 9 % (0-6); Hematocrit 30.2 % (33.0-51.0); Hemoglobin 9.4 g/dL (11.5-16.0); IMMATURE GRAN ABSOLUTE AUTO 0.01 K/mm3 (0.00-0.10); IMMATURE GRAN PERCENT AUTO 0 % (0-1); LYMPHOCYTES ABSOLUTE AUTO 0.68 K/mm3 (0.84-5.20); LYMPHOCYTES PERCENT AUTO 15 % (21-46); MONOCYTES ABSOLUTE AUTO 0.35 K/mm3 (0.16-1.47); MONOCYTES PERCENT AUTO 8 % (4-13); Mean Corpuscular HGB 29.7 pg (26.0-34.0); Mean Corpuscular HGB Conc 31.1 g/dL (31.5-36.5); Mean Corpuscular Volume 96 fL (80-100); Mean Platelet Volume 11.1 fL (9.1-12.4); NEUTROPHILS ABSOLUTE AUTO 2.96 K/mm3 (1.96-9.15); NEUTROPHILS PERCENT AUTO 67 % (41-73); Platelet Count 258 K/mm3 (150-400); RDW Coefficient Variation 15.1 % (11.7-14.2); RDW Standard Deviation 52.5 fL (35.1-46.3); Red Blood Cell Count 3.16 M/mm3 (3.80-5.20); White Blood Cell Count 4.45 K/mm3 (4.00-11.30)
[2023-09-20 04:43] LABS: Alanine Aminotransfer (ALT/SGP 24 U/L (12-78); Albumin, Blood 2.4 g/dL (3.4-5.0); Albumin/Globulin Ratio 0.5 (0.8-1.8); Alk Phos 502 U/L (50-136); Anion Gap 11 mmol/L (3-11); Aspartate Aminotrans (AST/SGOT 18 U/L (12-37); Bilirubin, Total 0.5 mg/dL (0.1-1.0); Blood Urea Nitrogen 26 mg/dL (8-24); Bun/Creatinine Ratio 5.5 (12.0-20.0); CO2, Blood 29 mmol/L (21-32); Calcium, Blood 8.8 mg/dL (8.5-10.1); Chloride, Blood 100 mmol/L (98-108); Creatinine, Blood 4.69 mg/dL (0.40-1.00); Globulin, Blood 4.4 g/dL (2.2-4.0); Glomerular Filtration Rate 10 (60-); Glucose, Blood 324 mg/dL (70-99); Magnesium, Blood 1.9 mg/dL (1.6-2.4); Phosphorus, Blood 4.9 mg/dL (2.5-4.9); Sodium, Blood 136 mmol/L (136-145); Total Protein, Blood 6.8 g/dL (6.4-8.2); Vancomycin, Random 34.7 ug/mL
--- NOTE | 2023-09-20 06:08 | NUR ---
ORDER TAKERS SUPERVISOR SUMMARY NO ACUTE CHANGES. PT IS A/OX4. SHE IS ABLE TO MAKE NEEDS KNOWN AND CALLS APPROPRIATELY. PT CALLED RN TO BEDSIDE AND REQUESTED ASSIST WITH CPAP OXYGEN WAS FALLING. PT ON CONT PULSE OX. PT SAT WAS FALLING TO 85-88% ON ROOM AIR. PT SLEPT WELL T/O THE NIGHT AND MAINTAINED SAT ABOVE 90% WITH CPAP ON. PT RESISTANT TO BEING REPOSITIONED IN THE NIGHT. INSTRUCTED PT ON IMPORTANCE OF PRESSURE INJURY PREVENTION. PT VERBALIZED SHE DID NOT LIKE TO BE AWAKENED. CALL LIGHT ACCESSIBLE.
--- NOTE | 2023-09-20 17:52 | NUR ---
SHIFT SUMMARY MS KERNS HAD DIALYSIS THIS AM. SHE WAS TIRED AND SLEPT MUCH OF THE AFTERNOON AFTER DIALYSIS, SLEPT WEARING CPAP. SHE WORKED WITH PHYSICAL THERAPIST BEFORE DIALYSIS AND TURNED IN BED, PILLOWS PROPPING HER OFF HER RIGHT BUTTOCK. MEPILEX CHANGED TO BOTH RIGHT AND LEFT BUTTOCK. RIGHT BUTTOCK HAS ABRASIONS AND BLISTERS, BOTH AREAS RED. AFTER PAIN MEDICATION LEG DRESSINGS WERE CLEANSED AND REDRESSED. HEEL PROTECTORS IN PLACE. MS GALINDO HAS NOT WANTED TO GET UP INTO THE CHAIR USING THE LIFT TODAY. SHE SAID SHE FEELS TIRED AND SORE. NO BM. NO UOP. BED LOW. CALL LIGHT IN REACH.
[2023-09-21] VITALS (16 sets, daily range): BP systolic 87–133; BP diastolic 39–80
[2023-09-21 05:01] LABS: Hematocrit 29.4 % (33.0-51.0); Hemoglobin 9.1 g/dL (11.5-16.0)
--- NOTE | 2023-09-21 05:17 | NUR ---
ELECTRIC ORGAN INSPECTOR AND REPAIRER SUMMARY NO ACUTE CHANGES. PT A/OX4. ABLE TO MAKE NEEDS KNOWN. PT REQUESTED LIMITED INTERUPTIONS OT SLEEP T/O THE NIGHT. PT NPO AT MIDNIGHT FOR POSSIBLE VASCULAR CONSULT. VASCULAR CONSULT FAXED TO DR KANG. CALL LIGHT ACCESSIBLE.
[2023-09-21 05:18] LABS: Albumin, Blood 2.4 g/dL (3.4-5.0); Anion Gap 12 mmol/L (3-11); Blood Urea Nitrogen 23 mg/dL (8-24); Bun/Creatinine Ratio 5.1 (12.0-20.0); CO2, Blood 29 mmol/L (21-32); Calcium, Blood 8.9 mg/dL (8.5-10.1); Chloride, Blood 101 mmol/L (98-108); Creatinine, Blood 4.48 mg/dL (0.40-1.00); Glomerular Filtration Rate 11 (60-); Glucose, Blood 299 mg/dL (70-99); Magnesium, Blood 2.4 mg/dL (1.6-2.4); Phosphorus, Blood 4.5 mg/dL (2.5-4.9); Sodium, Blood 138 mmol/L (136-145); Vancomycin, Random 29.8 ug/mL
[2023-09-21] MEDS ORDERED: Anticoagulant Sod Citrate Soln 3 ML SYR INJ PRN (07:55)
[2023-09-21] MEDS ORDERED: Polyethylene Glycol 3350 17 gm PO PRN (10:15)
[2023-09-21] MEDS ORDERED: Sennosides 8.6 MG Tab PO SCH (11:00)
--- NOTE | 2023-09-21 11:21 | NUR ---
PER TAO TAFOYA, DR. KANG IS NOT IN TODAY. SHE WILL PLACE PT ON SCHEDULE FOR TOMORROW. OK TO FEED PT, NPO AT MIDNIGHT
--- NOTE | 2023-09-21 18:11 | NUR ---
SUMMARY PT IS ALERT AND ORIENTED X4, ABLE TO MAKE NEEDS KNOWN. PT WILL BE NPO AT MIDNIGHT FOR PLANNED REVASC. BED BATH, LINEN CHANGE AND WOUND CARE COMPLETED BLE, TREATED CBG AND PAIN PER EMAR. Q 2HR TURNING AND NEEDED. SUPPORT WITH PILLOWS ON BUE. PT DECLINED GETTING OUT OF BED, DIALYSIS THIS MORNING.
[2023-09-21] MEDS ORDERED: Insulin Glargine-Yfgn 100 Unit/mL 3 ML SYR SC SCH (21:00)
[2023-09-21] MEDS ORDERED: Docusate Sodium 100 MG Cap PO SCH (21:00)
[2023-09-21] MEDS ORDERED: Bisacodyl 5 MG TabEC PO PRN (23:35)
[2023-09-22] VITALS (26 sets, daily range): BP systolic 94–143; BP diastolic 45–95
[2023-09-22 04:58] LABS: Hematocrit 31.7 % (33.0-51.0); Hemoglobin 9.8 g/dL (11.5-16.0)
[2023-09-22 05:24] LABS: Albumin, Blood 2.6 g/dL (3.4-5.0); Anion Gap 11 mmol/L (3-11); Blood Urea Nitrogen 22 mg/dL (8-24); Bun/Creatinine Ratio 5.2 (12.0-20.0); CO2, Blood 30 mmol/L (21-32); Chloride, Blood 100 mmol/L (98-108); Creatinine, Blood 4.22 mg/dL (0.40-1.00); Glomerular Filtration Rate 12 (60-); Glucose, Blood 356 mg/dL (70-99); Magnesium, Blood 2.5 mg/dL (1.6-2.4); Phosphorus, Blood 4.6 mg/dL (2.5-4.9); Potassium, Blood 3.9 mmol/L (3.5-5.5); Sodium, Blood 137 mmol/L (136-145); Vancomycin, Random 25.4 ug/mL
--- NOTE | 2023-09-22 06:01 | NUR ---
SUMMARY: PT A/OX4 AND CALLS APPROPRIATELY TO SPECIFY NEEDS. SHE CONT'S TO REQUIRE LIFT OOB AND TURN SCHEDULE WAS ENCOURAGED BUT PT OFTEN REFUSES. GRADUAL REPOSITIONING ATTENDED TO PERMITTED. MEPILEX IS INTACT TO EXCORIATED BUTTOCKS AND BLE DX'S REMAIN C/D/I AFTER BEING CHANGED ON DAY SHIFT. PT MADE NPO AT HI FOR REVASC PROCEDURE OF R.HEEL AND ORAL SWABS PROVIDED PER REQ. PERM CATH INTACT TO R.CW AND SHE'S BEEN RECEIVING DIALYSIS DAILY DURING ADMISSION W/OLIGURIA NOTED. PT TOLERATED CPAP AT HS W/CONT BIOX INTACT AND SPO2 WNL. NO ACUTE CHANGES, VSS/AFEBRILE. WCTM/REPORT TO DAY RN.
--- NOTE | 2023-09-22 06:30 | NUR ---
TEMPORAL TEMPS FREQUENTLY READ <97.0 DEGREES BUT RECHECK OF ORAL TEMPS ARE >98.0 DEGREES.
[2023-09-22] MEDS ORDERED: Anticoagulant Sod Citrate Soln 3 ML SYR INJ PRN (07:55)
[2023-09-22] MEDS ORDERED: Sennosides 8.6 MG Tab PO SCH (09:00)
[2023-09-22] MEDS ORDERED: Heparin Sodium 1000 Units/ML 10ML MDV ONE ×2 (14:24→15:45)
[2023-09-22] MEDS ORDERED: NS 1,000 ML IV ONE ×2 (14:24→14:56)
[2023-09-22] MEDS ORDERED: NS 250 ML IV ONE ×2 (14:24→14:55)
[2023-09-22] MEDS ORDERED: Midazolam HCl 1MG / ML 2ML Vial ONE ×2 (14:56→15:47)
[2023-09-22] MEDS ORDERED: FentaNYL Citrate 50 MCG/ML 2 ML Injection ONE ×3 (14:56→16:08)
[2023-09-22] MEDS ORDERED: Nitroglycerin 2 MG/20 ML BTL ONE (15:57)
--- NOTE | 2023-09-22 16:46 | NUR ---
PT AOX4 AND COOPERATIVE OF CARE. PT HAS BEEN PLEASANT AND TOLERATING BEING NPO ALL MORNING. PT ABLE TO USE CALL LIGHT APPROPRIATELY NO DISTRESS NOTED. PT TAKEN TO DIALYSIS FIRST PART OF THE MORNING THEN WAS TAKEN DOWN WITH PROCEDURE WITH DR KANG.REPORT WAS GIVEN TO GERALDO DOLAN DOWN IN PCU PRIOR TO PT GOING TO ROOM PCU20 AND ALL BELONGINGS WHERE MOVED TO NEW ROOM.
--- NOTE | 2023-09-22 18:52 | NUR ---
Transfer/ End of shift note. Pt transferred down to PCU20 from Medical floor after revasc procedure. Dialysis this morning before her procedure. Plan is for dialysis again tomorrow. Pt has been very uncomfortable while laying flat post procedure. PRN pain meds have been given and repositioned as able with restrictions. HOB can be raised at 1930. Pt did have a little oozing after arriving to the floor, contained within dressing. Area was marked for further assessment. Good PO intake. Pt has requested significant amounts of soda. Pt was encouraged to be mindful of fluid volume intake. CPAP is in place while resting. Pt is able to make needs known, call light is within reach.
[2023-09-22] MEDS ORDERED: Insulin Glargine-Yfgn 100 Unit/mL 3 ML SYR SC SCH (21:00)
[2023-09-23] VITALS (15 sets, daily range): BP systolic 90–146; BP diastolic 30–82
--- NOTE | 2023-09-23 04:57 | NUR ---
SHIFT SUMMARY THIS RN ASSUMED CARE AT APPROX 1915. NO ACUTE EVENTS OVERNIGHT, PATIENT SLEPT T/O. IS EASILY AROUSABLE WITH VERBAL STIMULI. ALERT AND ORIENTED X4. PERRLA. MOVES ALL EXTREMITIES WITH INCREASED WEAKNESS TO BLE. IS A LIFT PATIENT. COMMUNICATES NEEDS EFFECTIVELY. TELEMETRY SHOWING SINUS 60s-70s. BP STABLE. DIASTOLIC SOFT AT TIMES 40s-50s. DENIES CHEST PAIN, PRESSURE. WHILE AWAKE, IS ON ROOM AIR, SATs >90%. BASELINE CPAP USE WITH SLEEP - COMPLIANT WITH DEVICE. S/P REVASC - L GROIN SITE WNL. SMALL AMOUNT OF OOZING NOTED AT SITE. SITE IS SOFT, NONTENDER. PPP. WOUNDS TO BLE WITH DAILY DRESSING CHANGES ORDERED. DRESSING TO RLE CHANGED THIS SHIFT, DID NOT CHANGE LLE DRESSING DUE TO L GROIN SITE. DRESSINGS C/D/I. DIALYSIS PATIENT - OLIGURIA. DECLINING REPOSITIONING T/O NIGHT. CALL LIGHT IN REACH. WILL CONTINUE TO MONITOR AND REPORT TO ONCOMING RN.
[2023-09-23 04:59] LABS: BASOPHILS ABSOLUTE AUTO 0.03 K/mm3 (0.00-0.23); BASOPHILS PERCENT AUTO 1 % (0-2); EOSINOPHILS ABSOLUTE AUTO 0.35 K/mm3 (0.00-0.68); EOSINOPHILS PERCENT AUTO 9 % (0-6); Hematocrit 31.9 % (33.0-51.0); Hemoglobin 9.7 g/dL (11.5-16.0); IMMATURE GRAN ABSOLUTE AUTO 0.02 K/mm3 (0.00-0.10); IMMATURE GRAN PERCENT AUTO 1 % (0-1); LYMPHOCYTES ABSOLUTE AUTO 0.58 K/mm3 (0.84-5.20); LYMPHOCYTES PERCENT AUTO 14 % (21-46); MONOCYTES ABSOLUTE AUTO 0.32 K/mm3 (0.16-1.47); MONOCYTES PERCENT AUTO 8 % (4-13); Mean Corpuscular HGB 29.2 pg (26.0-34.0); Mean Corpuscular HGB Conc 30.4 g/dL (31.5-36.5); Mean Corpuscular Volume 96 fL (80-100); Mean Platelet Volume 10.5 fL (9.1-12.4); NEUTROPHILS PERCENT AUTO 68 % (41-73); Platelet Count 248 K/mm3 (150-400); RDW Coefficient Variation 15.1 % (11.7-14.2); RDW Standard Deviation 51.6 fL (35.1-46.3); Red Blood Cell Count 3.32 M/mm3 (3.80-5.20)
[2023-09-23 05:24] LABS: Albumin, Blood 2.7 g/dL (3.4-5.0); Anion Gap 11 mmol/L (3-11); Blood Urea Nitrogen 20 mg/dL (8-24); Bun/Creatinine Ratio 4.6 (12.0-20.0); CO2, Blood 30 mmol/L (21-32); Calcium, Blood 8.7 mg/dL (8.5-10.1); Chloride, Blood 100 mmol/L (98-108); Creatinine, Blood 4.39 mg/dL (0.40-1.00); Glomerular Filtration Rate 11 (60-); Glucose, Blood 275 mg/dL (70-99); Phosphorus, Blood 4.5 mg/dL (2.5-4.9); Potassium, Blood 3.7 mmol/L (3.5-5.5); Sodium, Blood 137 mmol/L (136-145); Vancomycin, Random 20.9 ug/mL
[2023-09-23] MEDS ORDERED: Anticoagulant Sod Citrate Soln 3 ML SYR INJ PRN (08:15)
[2023-09-23] MEDS ORDERED: Prochlorperazine Edisylate 10 mg Vial IV PRN (08:40)
[2023-09-23] MEDS ORDERED: Vancomycin HCL 1,000 MG in NS 100 ML IV SCH (12:00)
[2023-09-23] MEDS ORDERED: Calcium Gluconate 10% 1,000 MG in NS 50 ML IV ONE (13:25)
[2023-09-23] MEDS ORDERED: Promethazine HCl 25 MG Tab PO PRN (13:30)
--- NOTE | 2023-09-23 17:20 | NUR ---
shift summary this rn assumed care at 0700. vital signs stable and remained stable throughout the shift. tele sinus rhythm 80s. spo2 >90% on room air. patient is alert and oriented x4. neuro is intact and remains unchanged. patient reports pain in back and leg and medicated per emar. see emar. denies chest pain/pressure or shortness of breath. see shift assessment for further detials. wound care done this shift. dialysis done this morning. plan of care remains up to date
[2023-09-24] VITALS (20 sets, daily range): BP systolic 109–136; BP diastolic 27–85
[2023-09-24 04:36] LABS: Hematocrit 33.1 % (33.0-51.0); Hemoglobin 10.2 g/dL (11.5-16.0)
[2023-09-24 05:04] LABS: Vancomycin, Random 26.6 ug/mL
--- NOTE | 2023-09-24 06:27 | NUR ---
SHIFT SUMMARY PATIENT ALERT AND ORINETED X4. MEDICATED PER EMAR FOR ITCHING AND PAIN. HAD NO COMPLAINTS OF SHORTNESS OF BREATH. ON ROOM AIR WHILE AWAKE WITH SPO2 >90%, WORE CPAP WHILE SLEEPING. VITAL SIGNS STABLE, SINUS RHYTHM ON TELE. NO ACUTE ISSUES NOTED OVERNIGHT. WILL CONTINUE TO MONITOR. CALL LIGHT WITHIN REACH.
[2023-09-24] MEDS ORDERED: Anticoagulant Sod Citrate Soln 3 ML SYR INJ PRN (07:50)
--- NOTE | 2023-09-24 09:26 | NUR ---
am note this rn assumed care at 0700. vital signs stable. tele sinus rhythm. spo2 >90% on room air. patient is alert and oriented x4. neuro is intact. perrla. patient is able to make needs known. denies pain, chest pain/pressure or shortness of breath. see shift assessment for further detials. patient to dialysis at 0830. md head by at 0915 and went to see patient in dialysis center. plan of care remains up to date. medical status with tele
--- NOTE | 2023-09-24 11:19 | NUR ---
return from dialysis dialysis nurse called this rn to come down. dialysis nurse told this rn that there is a bonnie in the permacath line and unable to get it out. permacath is clapped and md head and dandy parker to be informed of needing to remove current permacath and having new one replaced. dialysis nurse called md young with the update.
--- NOTE | 2023-09-24 12:52 | NUR ---
update md parker in to see patient for permacath replacement. patient agreed to this. patient able to eat lunch and npo after lucnh for replacement this evening
[2023-09-24] MEDS ORDERED: NS 500 ML IV ONE ×2 (17:50→17:54)
[2023-09-24] MEDS ORDERED: Heparin Sodium 1000 Units/ML 10ML MDV ONE (17:51)
--- NOTE | 2023-09-24 17:58 | NUR ---
transfer of care patient vitals remain stable throughout the shift. tele sinus rhythm. neuro remains intact and unchanged. patient left to room 311 at 1645. this rn gave report to nicol downs. patient left with all belonings and in no distress.
[2023-09-24] MEDS ORDERED: FentaNYL Citrate 50 MCG/ML 2 ML Injection ONE (18:00)
[2023-09-24] MEDS ORDERED: Midazolam HCl 1MG / ML 2ML Vial ONE (18:00)
--- NOTE | 2023-09-24 18:01 | NUR ---
TRANSFER NOTE/SHIFT SUMMARY- PT TRANSFERED TO MEDICAL FLOOR AT 1700. PER REPORT FROM PCU THE PT HAS NOT HAD HER CHG BATH, PT HAS NOT HAD WOUND CARE PERFORMED TODAY. PT HAS A CLOGGED PERMACATH THAT IS CURRENTLY BEING REMOVED BY DR KANG AND REPLACED. PT 1600 IV ABX HAVE NOT BEEN GIVEN, WAS ATTEMPTING TO GIVE WHEN THE JITTERBUG OPERATOR STAFF ARRIVED TO TAKE HER FOR HER PROCEDURE. PT IS CURRENTLY IN THE JITTERBUG OPERATOR TELE BOX WENT WITH HER TO THE JITTERBUG OPERATOR. PT WAS ALERT AND ORIENTED AND IN GOOD SPIRITS WHEN SHE LEFT FOR THE JITTERBUG OPERATOR. LFA IV NOT FLUSHED THE PT LEFT PRIOR TO ASSESSMENT BEING PERFORMED. NO S&S OF DISTRESS NOTED WHEN THE PT LEFT.
[2023-09-24] MEDS ORDERED: Heparin Sodium 10,000 Units/ML 1ML MDV ONE (18:02)
--- NOTE | 2023-09-24 19:25 | NUR ---
PT IV ACCESS WAS FLUSHED WHEN SHE RETURNED FROM THE PROCEDURE. PT STATES IT IS VERY PAINFUL WITH THE FLUSH. SHE IS A FAIRLY HARD STICK AND IT IS SHIFT CHANGE AT THE TIME SHE RETURNED WITH A NEW PERMACATH TO THE RIGHT CHEST WALL. NO SIGNS OF BLEEDING SOME EDEMA TO THE AREA. PER REPORT DR KANG USED A GOOD VOLUME OF SUB-Q LIDOCAINE. NIGHT RN IS AWARE OF THE NEED FOR NEW IV ACCESS. 1600 ABX STILL NOT STARTED D/T LACK OF ACCESS.
[2023-09-24] MEDS ORDERED: Insulin Glargine-Yfgn 100 Unit/mL 3 ML SYR SC SCH ×2 (21:00)
[2023-09-25] VITALS (16 sets, daily range): BP systolic 95–126; BP diastolic 37–77
[2023-09-25 05:27] LABS: Hematocrit 32.9 % (33.0-51.0); Hemoglobin 10.3 g/dL (11.5-16.0)
--- NOTE | 2023-09-25 05:33 | NUR ---
SHIFT SUMMARY NOC PT A/O X 4. PLEASANT AND COOPERATIVE WITH CARE. VSS POST OP PERM CATHETER PLACEMENT. PT HAS DRESSING IN PLACE ON BLE C/D/I, THEY WERE NOT CHANGED DURING SHIFT. CHG BATH WAS REFUSED BY PT WHO STATED THAT THEY WOULD PREFER TO DO IT AFTER DIALYSIS DURING DAY SHIFT. PT LOWER BACK AND R FOOT PAIN MANAGED PER EMAR. PT USED CPAP FOR SLEEPING WITH CONTINOUS BIOX IN PLACE MAINTAINING SPO2 >94%. PT EXPECTED TO HAVE DIALYSIS TODAY. PT ON TELE SINUS RHYTHM IN 70'S. ON CONTACT ISOLATION FOR MRSA IN WOUNDS. PT CURRENTLY RESTING WITH BED IN LOWEST POSITION, AND CALL LIGHT WITHIN REACH.
[2023-09-25 06:07] LABS: Albumin, Blood 2.8 g/dL (3.4-5.0); Anion Gap 11 mmol/L (3-11); Blood Urea Nitrogen 20 mg/dL (8-24); Bun/Creatinine Ratio 4.2 (12.0-20.0); CO2, Blood 28 mmol/L (21-32); Calcium, Blood 8.8 mg/dL (8.5-10.1); Chloride, Blood 99 mmol/L (98-108); Creatinine, Blood 4.72 mg/dL (0.40-1.00); Glomerular Filtration Rate 10 (60-); Glucose, Blood 309 mg/dL (70-99); Magnesium, Blood 2.4 mg/dL (1.6-2.4); Phosphorus, Blood 5.3 mg/dL (2.5-4.9); Potassium, Blood 3.7 mmol/L (3.5-5.5); Sodium, Blood 134 mmol/L (136-145)
[2023-09-25] MEDS ORDERED: Insulin Human Lispro 100 Units/ML 3ML Syringe SC SCH (07:30)
[2023-09-25] MEDS ORDERED: Anticoagulant Sod Citrate Soln 3 ML SYR INJ PRN (07:45)
--- NOTE | 2023-09-25 12:43 | NUR ---
DR HEMPHILL CAME BY TO SEE THE PATIENT, DRESSING TO R LEG REMOVED, OPEN AREA TO DORSAL SURFACE OF R LOWER LEG IS PINK WITH SEROUS DRAINAGE, R HEEL IS COVERED IN ESCHAR, WOUNDS CLEANSED WITH WOUND CLEANSER AND 4X4'S, WOUNDS COVERED IN XEROFORM, THEN ABD, THEN KERLIX, ALL WRAPPED UP WITH MARLINE, PT GOYO FAIR, PAINFUL HEEL
--- NOTE | 2023-09-25 19:57 | NUR ---
SHIFT SUMMARY- PT CHG BATH WAS COMPLETED WITH THE FUEL OIL TRUCK DRIVER'S ASSISTANCE. PT WAS SCRATCHING AT HER SKIN ALL OVER. OPEN AREAS WERE COVERED WITH NEW MEPILEX AFTER CHG BATH. NEW PG WAS PLACED TODAY DRAWS WELL ABX INFUSING AT THE TIME OF BEDSIDE REPORT. LOCATED A BARIATRIC AIR BED FOR THE PT. PASSED ON TO EYE DROPPER ASSEMBLER THAT THE PT NEEDS ONE, SHE FREQUENTLY DECLINES REPOSITIONING, SHE OFTEN TELLS STAFF SHE WILL DO THINGS LATER BUT LATER NEVER COMES. BEDSIDE REPORT COMPLETED WITH NIGHT RN, NO S&S OF DISTRESS NOTED AT THE TIME OF REPORT.
[2023-09-25] MEDS ORDERED: Heparin Sodium,Porcine 5,000 UNIT/0.5 ML SDV SC SCH (21:00)
[2023-09-25] MEDS ORDERED: Insulin Glargine-Yfgn 100 Unit/mL 3 ML SYR SC SCH (21:00)
[2023-09-26 03:03] VITALS: BP 94/56
--- NOTE | 2023-09-26 05:44 | NUR ---
SHIFT SUMMARY: NO ACUTE EVENTS. NO EVENTS ON TELEMETRY, SR 80'S WITH BBB. C/O PAIN IN RLE AND LOW BACK; MEDICATED PER EMAR WITH ADEQUATE RELIEF. PLACED PT ON BARIATRIC BED WITH LIFT SLING. HAS MULTIPLE SCRATCHES AND SMALL EXCORIATED AREAS ON ALL EXTREMITIES AND TORSO D/T ITCHING; GAVE BENADRYL AT HS. UA NOT COLLECTED PT DID NOT VOID THIS SHIFT. SLEPT SOUNDLY FROM MIDNIGHT ON, BIPAP IN USE WHILE SLEEPING.
[2023-09-26 07:50] VITALS: BP 124/43
[2023-09-26 08:15] LABS: BASOPHILS ABSOLUTE AUTO 0.06 K/mm3 (0.00-0.23); BASOPHILS PERCENT AUTO 1 % (0-2); EOSINOPHILS ABSOLUTE AUTO 0.33 K/mm3 (0.00-0.68); EOSINOPHILS PERCENT AUTO 7 % (0-6); Hematocrit 33.9 % (33.0-51.0); Hemoglobin 10.5 g/dL (11.5-16.0); IMMATURE GRAN ABSOLUTE AUTO 0.01 K/mm3 (0.00-0.10); IMMATURE GRAN PERCENT AUTO 0 % (0-1); LYMPHOCYTES ABSOLUTE AUTO 0.68 K/mm3 (0.84-5.20); LYMPHOCYTES PERCENT AUTO 15 % (21-46); MONOCYTES ABSOLUTE AUTO 0.39 K/mm3 (0.16-1.47); MONOCYTES PERCENT AUTO 9 % (4-13); Mean Corpuscular HGB 29.3 pg (26.0-34.0); Mean Corpuscular Volume 95 fL (80-100); Mean Platelet Volume 11.1 fL (9.1-12.4); NEUTROPHILS ABSOLUTE AUTO 2.98 K/mm3 (1.96-9.15); NEUTROPHILS PERCENT AUTO 67 % (41-73); Platelet Count 200 K/mm3 (150-400); RDW Coefficient Variation 15.8 % (11.7-14.2); RDW Standard Deviation 54.5 fL (35.1-46.3); Red Blood Cell Count 3.58 M/mm3 (3.80-5.20); White Blood Cell Count 4.45 K/mm3 (4.00-11.30)
[2023-09-26 08:33] LABS: Alanine Aminotransfer (ALT/SGP 21 U/L (12-78); Albumin, Blood 2.8 g/dL (3.4-5.0); Albumin/Globulin Ratio 0.7 (0.8-1.8); Alk Phos 460 U/L (50-136); Anion Gap 13 mmol/L (3-11); Aspartate Aminotrans (AST/SGOT 22 U/L (12-37); Bilirubin, Total 0.4 mg/dL (0.1-1.0); Blood Urea Nitrogen 24 mg/dL (8-24); Bun/Creatinine Ratio 4.9 (12.0-20.0); CO2, Blood 26 mmol/L (21-32); Chloride, Blood 101 mmol/L (98-108); Globulin, Blood 4.3 g/dL (2.2-4.0); Glomerular Filtration Rate 10 (60-); Glucose, Blood 220 mg/dL (70-99); Magnesium, Blood 2.4 mg/dL (1.6-2.4); Phosphorus, Blood 5.1 mg/dL (2.5-4.9); Potassium, Blood 3.8 mmol/L (3.5-5.5); Sodium, Blood 136 mmol/L (136-145); Total Protein, Blood 7.1 g/dL (6.4-8.2); Vancomycin, Random 18.9 ug/mL
[2023-09-26] MEDS ORDERED: Vancomycin HCL 1,000 MG in NS 100 ML IV ONE (10:00)
[2023-09-26] MEDS ORDERED: HYDROmorphone HCl 2 MG Tab PO PRN (10:55)
[2023-09-26 14:07] VITALS: BP 107/57
[2023-09-26 15:19] VITALS: BP 92/32
[2023-09-26 17:44] VITALS: BP 110/48
--- NOTE | 2023-09-26 18:42 | NUR ---
SHIFT SUMMARY- PT DID NOT HAVE DIALYSIS TODAY. SHE REQUESTED A DAY OFF FROM IT AND DR HESS TOLD HER LONG HER POTASSIUM WAS LESS THAN 5 SHE COULD HAVE THE DAY OFF. IT WAS. PT IS ON A BARIATRIC AIR BED TO PREVENT FURTHER BREAKDOWN OF HER REMAINING GOOD SKIN. HOWEVER TWICE THIS SHIFT THE MATRESS DEFLATED ON ITS OWN AND THE PUMP WAS UNPLUGGED IT RESUMED WORING AFTER IT WAS PLUGGED BACK IN. PT WILL BE TRANSFERED BACK TO ALTERNATE HOSPITAL BED, HIDE TANNER REQUESTED AN AIR BED FOR THE PT A RENTAL. CHG WIPES BATH COUPLETED, MOSTLY INDEPENDENTLY. UNABLE TO COMPLETE WOUND CARE THIS SHIFT.
[2023-09-26 20:51] VITALS: BP 119/60
[2023-09-27] VITALS (18 sets, daily range): BP systolic 91–147; BP diastolic 40–69
[2023-09-27 05:09] LABS: Hemoglobin 10.1 g/dL (11.5-16.0)
--- NOTE | 2023-09-27 05:20 | NUR ---
SHIFT SUMMARY: A&O X 4, PLEASANT AND COOPERATIVE. PATIENT SLEPT ALMOST THE ENTIRE SHIFT, AWAKE ONLY FOR MEDICATION ADMIN. NO EVENTS ON TELEMETRY, SR 60'S WITH BBB. USING BIPAP WITH 2 L/MIN O2 BLEED IN WHILE SLEEPING. NO FURTHER BED MALFUNCTIONS. C/O PAIN IN RLE AND LOW BACK; MEDICATED PER EMAR. TRIED TO DO WOUND CARE EARLY IN THE SHIFT WHILE SHE WAS AWAKE BRIEFLY, BUT SHE DECLINED, STATING SHE WANTED TO GO BACK TO SLEEP. EDUCATED HER ABOUT THE IMPORTANCE OF DAILY WOUND CARE TO MANAGE INFECTION, STILL DECLINED.
[2023-09-27 05:31] LABS: Albumin, Blood 2.6 g/dL (3.4-5.0); Anion Gap 14 mmol/L (3-11); Blood Urea Nitrogen 35 mg/dL (8-24); Bun/Creatinine Ratio 5.8 (12.0-20.0); CO2, Blood 26 mmol/L (21-32); Calcium, Blood 9.1 mg/dL (8.5-10.1); Chloride, Blood 101 mmol/L (98-108); Creatinine, Blood 6.03 mg/dL (0.40-1.00); Glomerular Filtration Rate 8 (60-); Glucose, Blood 281 mg/dL (70-99); Magnesium, Blood 2.5 mg/dL (1.6-2.4); Phosphorus, Blood 6.5 mg/dL (2.5-4.9); Potassium, Blood 4.1 mmol/L (3.5-5.5); Sodium, Blood 137 mmol/L (136-145); Vancomycin, Random 29.4 ug/mL
[2023-09-27] MEDS ORDERED: OxyCODONE HCL 5 MG TAB PO PRN (11:55)
[2023-09-27] MEDS ORDERED: HYDROmorphone HCl 2 MG Tab PO PRN (14:30)
[2023-09-27] MEDS ORDERED: HYDROmorphone HCl 2 MG Tab PO ONE (14:30)
--- NOTE | 2023-09-27 19:42 | NUR ---
SHIFT SUMMARY- PT HAD DIALYSIS TODAY. PAIN MED SWITCHED TO DILAUDID FROM OXY. SHE C/O THAT MED NOT WORKING AND THE DR CHANGED IT BACK PER HER REQUEST. PT THEN STATED SHE DI NOT WANT THE OXY SHE WANTED THE DILAUDID BACK. SPOKE TO DR GOETZ WHO CAME TO SEE THE PT. PT WAS VERY QUIET AND APPEARED DOWN AFTER HER VISIT WITH DR GOETZ. SPOKE TO DR GOETZ, DR HUERTA WAS SUPPOSED TO HAVE BEEN CONSULTED BUT THERE WAS NO ORDER. DR GOETZ PLACED AN ORDER AND THIS RN CALLED DR HUERTA, PER THE REQUEST OF THE PT FOR A SECOND OPINION AND THE ORDER. PT IS ON A BARIATRIC BED AT THIS TIME, THERE HAVE BEEN NO ISSUES WITH THE MATRESS INFLATION T/O LAST NIGHT AND ALL DAY TODAY. PT IN BED, CALL LIGHT IN REACH NO S&S OF DISTRESS NOTED AT THE TIME OF BEDSIDE REPORT.
[2023-09-27] MEDS ORDERED: Insulin Glargine-Yfgn 100 Unit/mL 3 ML SYR SC SCH (21:00)
[2023-09-28] VITALS (11 sets, daily range): BP systolic 98–151; BP diastolic 38–84
[2023-09-28 05:05] LABS: Hemoglobin 10.4 g/dL (11.5-16.0)
[2023-09-28 05:35] LABS: Albumin, Blood 2.7 g/dL (3.4-5.0); Anion Gap 13 mmol/L (3-11); Blood Urea Nitrogen 31 mg/dL (8-24); Bun/Creatinine Ratio 5.8 (12.0-20.0); CO2, Blood 26 mmol/L (21-32); Chloride, Blood 102 mmol/L (98-108); Creatinine, Blood 5.39 mg/dL (0.40-1.00); Glomerular Filtration Rate 9 (60-); Glucose, Blood 100 mg/dL (70-99); Magnesium, Blood 2.5 mg/dL (1.6-2.4); Phosphorus, Blood 5.5 mg/dL (2.5-4.9); Potassium, Blood 3.6 mmol/L (3.5-5.5); Sodium, Blood 137 mmol/L (136-145); Vancomycin, Random 23.8 ug/mL
--- NOTE | 2023-09-28 06:21 | NUR ---
SHIFT SUMMARY: Pt is admitted for encephalopathy and is a full code. Is alert and able to make needs known. ADLs have been 2p and did not get out of bed surring shift. On contact ISO for MRSA HX. power glide to left upper arm intact with dressing that is CDI. PERMAcath present to right upper chest with dressing that is CDI. Herb reports sinus in the 80s.
[2023-09-28] MEDS ORDERED: Anticoagulant Sod Citrate Soln 3 ML SYR INJ PRN (07:40)
[2023-09-28] MEDS ORDERED: Albumin (Human) 25gm/100ml 100 ML IV SCH (09:25)
[2023-09-28] MEDS ORDERED: Insulin Human Lispro 100 Units/ML 3ML Syringe SC SCH (16:30)
[2023-09-28] MEDS ORDERED: Fluconazole 100 MG Tab PO SCH (18:00)
--- NOTE | 2023-09-28 18:56 | NUR ---
SHIFT SUMMARY PT A&OX4, VSS, BEDRIDDEN, TOLERATING PO, VOIDING VERY LITTLE, AND PAIN MEDICATED PER EMAR. PT C/O PAIN T/O SHIFT. WOUND CARE COMPLETED PER ORDER. PT HAD DIALYSIS, BUT TOLERATED POORLY W/ HYPOTENSION. PT RETURNED TO FLOOR AFTER 30 MIN OF TX. ROUNDED ON PT AND PT PLAN TO HAVE R GREAT TOE REMOVED. CALL LIGHT WITHIN REACH AND PT ABLE TO MAKE NEEDS KNOWN.
[2023-09-28] MEDS ORDERED: Insulin Glargine-Yfgn 100 Unit/mL 3 ML SYR SC SCH ×2 (21:00)
[2023-09-29 03:57] VITALS: BP 129/61
[2023-09-29 05:00] LABS: Hematocrit 32.5 % (33.0-51.0); Hemoglobin 10.3 g/dL (11.5-16.0)
[2023-09-29 05:23] LABS: Albumin, Blood 2.7 g/dL (3.4-5.0); Anion Gap 13 mmol/L (3-11); Blood Urea Nitrogen 41 mg/dL (8-24); Bun/Creatinine Ratio 6.7 (12.0-20.0); CO2, Blood 25 mmol/L (21-32); Calcium, Blood 8.8 mg/dL (8.5-10.1); Chloride, Blood 99 mmol/L (98-108); Creatinine, Blood 6.14 mg/dL (0.40-1.00); Glomerular Filtration Rate 8 (60-); Glucose, Blood 261 mg/dL (70-99); Magnesium, Blood 2.7 mg/dL (1.6-2.4); Phosphorus, Blood 6.7 mg/dL (2.5-4.9); Potassium, Blood 4.1 mmol/L (3.5-5.5); Sodium, Blood 133 mmol/L (136-145); Vancomycin, Random 21.8 ug/mL
--- NOTE | 2023-09-29 06:32 | NUR ---
SHIFT SUMMARY: Pt admitted for encephalopathy and and is a full code. Is alert and able to make needs known. ADLs have been mostly 1p but did not get out of been during shift. On contact ISO for history of MRSA. pain has been managed with prn pain management. Power glide to upper left arm is intact with dressing that is CDI. permacath to upper right chest is intact with dressing that is CDI. Herb reports sinus in the 70s. Was placed on NPO at midnight due to pending surgery at some point today.
[2023-09-29 07:51] VITALS: BP 122/60
[2023-09-29 15:17] VITALS: BP 126/55
--- NOTE | 2023-09-29 18:10 | NUR ---
SHIFT SUMMARY PT A&OX4, VSS, BEDRIDDEN, TOLERATING PO, VOIDING VERY LITTLE AND PAIN MANAGED PER EMAR. PT C/O NAUSEA X1 MEDICATED PER EMAR. PT EXPECTED TO HAVE SURGERY TODAY, BUT GOT POSTPONED. PT PLAN TO HAVE SURGERY TOMORROW AT 1500. PT TO BE NPO STARTING AT 0700 09/30/23. PT REFUSED TO WORK W/ PHYSICAL THERAPY THIS SHIFT, SEE THERAPY NOTE. NEW PICTURES OF WOUNDS/SKIN MARKINGS TAKEN AND PLACED IN CHART THIS SHIFT. NO OTHER ACUTE CHANGES. CALL LIGHT WITHIN REACH AND PT ABLE TO MAKE NEEDS KNOWN.
[2023-09-29 20:50] VITALS: BP 129/50
[2023-09-30] VITALS (21 sets, daily range): BP systolic 98–157; BP diastolic 28–105
--- NOTE | 2023-09-30 04:22 | NUR ---
LEATHER SHAVER SUMMARY VSS. HS CBG 413, VOICED NEED FOR MORE INSULIN - NOTED INSULIN WAS DC'D ON DAY SHIFT. MD NOTIFIED, INSULIN REORDERED. PT EASILY IRRITATED. LABILE AFFECT. REFUSED TO ALLOW NURSE TO REMOVE DRESSINGS OF BLE TO TAKE PICS, STATED SHE WOULD ALLOW AM RN TO DO IT AT TIME OF DRESSING CHANGE. PIC OF RIGHT GREAT TOE TAKEN - SEE PIC IN CHART. SCHEDULED FOR SURGERY LATER TODAY, WILL BE NPO AT 0700 FOR PREP. HAS BEEN RESTING QUIETLY WITH CPAP IN USE AFTER RT APPLIED IT. CONTACT ISOLATION CONTINUES FOR MRSA. SEE MAR FOR DETAILS OF PAIN MEDS, ETC. ABLE TO REPOSITION SELF IN BED FOR COMFORT. CALL LIGHT IN REACH, RAILS UP X 2 FOR SAFEATY. WILL CONTINUE TO MONITOR
[2023-09-30 06:06] LABS: Hematocrit 30.4 % (33.0-51.0); Hemoglobin 9.5 g/dL (11.5-16.0)
[2023-09-30 06:35] LABS: Magnesium, Blood 2.7 mg/dL (1.6-2.4)
[2023-09-30 06:36] LABS: Albumin, Blood 2.6 g/dL (3.4-5.0); Anion Gap 14 mmol/L (3-11); Blood Urea Nitrogen 56 mg/dL (8-24); Bun/Creatinine Ratio 7.3 (12.0-20.0); CO2, Blood 26 mmol/L (21-32); Calcium, Blood 8.4 mg/dL (8.5-10.1); Chloride, Blood 99 mmol/L (98-108); Creatinine, Blood 7.64 mg/dL (0.40-1.00); Glomerular Filtration Rate 6 (60-); Glucose, Blood 435 mg/dL (70-99); Potassium, Blood 4.7 mmol/L (3.5-5.5); Sodium, Blood 134 mmol/L (136-145); Vancomycin, Random 20.4 ug/mL
[2023-09-30 06:39] LABS: Phosphorus, Blood 8.7 mg/dL (2.5-4.9)
[2023-09-30] MEDS ORDERED: Insulin Human Lispro 100 Units/ML 3ML Syringe SC SCH (07:30)
[2023-09-30] MEDS ORDERED: Anticoagulant Sod Citrate Soln 3 ML SYR INJ PRN (07:45)
[2023-09-30] MEDS ORDERED: Vancomycin HCL 1,000 MG in NS 250 ML IV ONE (12:00)
[2023-09-30] MEDS ORDERED: Bupivacaine 0.5% HCl 5 MG/ML 30MLVIAL ONE (15:08)
[2023-09-30] MEDS ORDERED: Lidocaine HCl 1% 30 ML SDV ONE (15:08)
[2023-09-30] MEDS ORDERED: propofoL 20 ML IV ONE (15:09)
[2023-09-30] MEDS ORDERED: FentaNYL Citrate 50 MCG/ML 2 ML Injection ONE (15:09)
[2023-09-30] MEDS ORDERED: NS 1,000 ML IV SCH ×2 (15:10→15:20)
[2023-09-30] MEDS ORDERED: Dexamethasone Sod Phos 10 MG/ML 1ML VIAL ONE (15:11)
[2023-09-30] MEDS ORDERED: Ondansetron HCl 2 MG / ML 2ML Vial ONE (15:11)
[2023-09-30] MEDS ORDERED: Lidocaine HCl 2% 20 ML MDV ONE (15:11)
[2023-09-30] MEDS ORDERED: Etomidate 2MG / ML 10ML Vial ONE (15:20)
--- NOTE | 2023-09-30 15:22 | NUR ---
PT TRANSPORTED TO OR AT 1519 BY PAROLE AGENT VIA [facility].
--- NOTE | 2023-09-30 15:30 | NUR ---
INTO [facility] VIA GURNEY. PT TRANSFERED FROM BED TO [place] USING CEILING LIFT. PT IN CONTACT ISOLATION FOR MRSA. HISTORY AND ALLERGIES REVIEWED. NPO STATUS CONFIRMED. LUNGS DIMINISHED T/O-NO NOTED SOB. SATS>90% ON RA.
--- NOTE | 2023-09-30 17:51 | NUR ---
ASSUMED CARE NOTE PT RETURNED TO ROOM FROM SURGERY AT 1705. PT A&OX4, VSS, LIFT TO TRANSFER, TOLERATING PO, AND PAIN MANAGED PER EMAR. RLE DRESSING C/D/I. CALL LIGHT PLACED WITHIN REACH AND PT ABLE TO MAKE NEEDS KNOWN.
--- NOTE | 2023-09-30 18:09 | NUR ---
SHIFT SUMMARY PT HAD R TOE AMP AND R HEEL DEBRIDEMENT THIS SHIFT. PT PAIN MANAGED PER EMAR AND DID NOT WORK WITH PHYSICAL THERAPY. PT HAD DIALYSIS THIS AM AND TOLERATED IT WELL. NO OTHER ACUTE CHANGES. CALL LIGHT WITHIN REACH AND PT ABLE TO MAKE NEEDS KNOWN.
[2023-10-01] VITALS (14 sets, daily range): BP systolic 90–164; BP diastolic 38–84
[2023-10-01 05:46] LABS: Vancomycin, Random 25.9 ug/mL
[2023-10-01] MEDS ORDERED: Anticoagulant Sod Citrate Soln 3 ML SYR INJ PRN (07:40)
[2023-10-01] MEDS ORDERED: Albumin (Human) 25gm/100ml 100 ML IV SCH (07:40)
[2023-10-01] MEDS ORDERED: Insulin Human Lispro 100 Units/ML 3ML Syringe SC SCH ×2 (08:40→11:30)
--- NOTE | 2023-10-01 09:00 | NUR ---
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
[2023-10-01] MEDS ORDERED: Alteplase Recombinant 2 MG / Vial IV SCH (09:25)
[2023-10-01 09:47] LABS: Glucose, Blood 438 mg/dL (70-99)
--- NOTE | 2023-10-01 18:33 | NUR ---
pt resting in bed, watching tv, podiatry stopped to see her, no further changes this shift. call light in reach.
[2023-10-01] MEDS ORDERED: Insulin Glargine-Yfgn 100 Unit/mL 3 ML SYR SC SCH (21:00)
[2023-10-02] VITALS (15 sets, daily range): BP systolic 100–147; BP diastolic 47–78
[2023-10-02 05:22] LABS: Hemoglobin 8.7 g/dL (11.5-16.0)
--- NOTE | 2023-10-02 05:27 | NUR ---
SHIFT SUMMARY. PATIENT IS A&OX4, ANSWERS ORIENTATION QUESTIONS APPROPRIATELY. PATIENT IS ABLE TO MAKE HER NEEDS KNWON. PATIENT C/O PAIN X2-MEDICATED PER ORDERS. PATIENT REFUSED TO BE REPOSITIONED T/O SHIFT. PATIENTS RIGHT FOOT ELEVATED WITH PILLOWS. PATIENT IS PLEASANT AND ABLE TO MAKE HER NEEDS KNOWN. PATIENT SLEPT OFF AND ON T/O NIGHT. PATIENT BED LOCKED WITH CALL LIGHT IN REACH. PATIENT RAISES BED UP ON HER OWN-EDUCATED PATIENT ON SAFETY. CARE IS ONGOING.
[2023-10-02 06:08] LABS: Magnesium, Blood 2.4 mg/dL (1.6-2.4)
[2023-10-02 06:32] LABS: Albumin, Blood 2.8 g/dL (3.4-5.0); Anion Gap 12 mmol/L (3-11); Blood Urea Nitrogen 44 mg/dL (8-24); Bun/Creatinine Ratio 8.7 (12.0-20.0); CO2, Blood 28 mmol/L (21-32); Calcium, Blood 8.2 mg/dL (8.5-10.1); Chloride, Blood 97 mmol/L (98-108); Creatinine, Blood 5.06 mg/dL (0.40-1.00); Glomerular Filtration Rate 10 (60-); Glucose, Blood 292 mg/dL (70-99); Phosphorus, Blood 6.9 mg/dL (2.5-4.9); Potassium, Blood 4.3 mmol/L (3.5-5.5); Sodium, Blood 133 mmol/L (136-145); Vancomycin, Trough 22.8 ug/mL (5.0-10.0)
--- NOTE | 2023-10-02 17:00 | NUR ---
SHIFT SUMMARY PT CONT LEVEL OF CARE WITH NO ACUTE CHANGES NOTED. PT HAS BEEN EDUCATED THIS SHIFT THE IMPORTANCE OF NOT HAVING HER BED RAISED UP IN THE AIR D/T A SAFTEY CONCERN. PT STATED SHE UNDERSTANDS BUT CONT TO HAVE HER BED RAISED. DSG CHANGED TO BLE THIS SHIFT. PT TOLERATED WELL WITH NO C/O NOTED. PT RECEIVED DIALYSIS THIS SHIFT. WELL.
[2023-10-03] VITALS (15 sets, daily range): BP systolic 100–140; BP diastolic 32–87
[2023-10-03 05:57] LABS: Hematocrit 27.7 % (33.0-51.0); Hemoglobin 8.6 g/dL (11.5-16.0)
[2023-10-03 06:29] LABS: Albumin, Blood 2.6 g/dL (3.4-5.0); Anion Gap 10 mmol/L (3-11); Blood Urea Nitrogen 40 mg/dL (8-24); Bun/Creatinine Ratio 8.7 (12.0-20.0); CO2, Blood 29 mmol/L (21-32); Calcium, Blood 8.1 mg/dL (8.5-10.1); Chloride, Blood 101 mmol/L (98-108); Creatinine, Blood 4.62 mg/dL (0.40-1.00); Glomerular Filtration Rate 11 (60-); Glucose, Blood 206 mg/dL (70-99); Magnesium, Blood 2.3 mg/dL (1.6-2.4); Potassium, Blood 4.3 mmol/L (3.5-5.5); Sodium, Blood 136 mmol/L (136-145); Vancomycin, Trough 18.2 ug/mL (5.0-10.0)
[2023-10-03] MEDS ORDERED: Albumin (Human) 25gm/100ml 100 ML IV SCH (07:35)
[2023-10-03] MEDS ORDERED: Anticoagulant Sod Citrate Soln 3 ML SYR INJ PRN (07:35)
--- NOTE | 2023-10-03 07:39 | NUR ---
FIRE SPRINKLER APPARATUS INSPECTOR SUMMARY VSS. ALERT AND ORIENTED. RIGHT TOE DRESSING INTACT. RECEIVED ANALGESICS X 2 THIS SHIFT - SEE MAR FOR DETAILS. O2 PER NC. ON BARIATRIC BED. HAS BEEN RESTING QUIETLY WITH FEW INTERRUPIONS. ACCU CHECKS ACHS, COVERAGE PER SCHEDULE - SEE MAR FOR DETAILS. EDEMA BLE, LEGS ELEVATED. CONTACT ISOLATION PRECAUTIONS CONTINUE. CALL LIGHT IN REACH, RAILS UP X 2 FOR SAFETY. ABLE TO REPOSITION SELF, ENCOURAGED TO MOVE NEEDED FOR COMFORT. WILL CONTINUJE TO MONITOR
[2023-10-03] MEDS ORDERED: Insulin Human Lispro 100 Units/ML 3ML Syringe SC SCH (08:00)
[2023-10-03] MEDS ORDERED: Vancomycin HCL 1,000 MG in NS 250 ML IV ONE (12:00)
--- NOTE | 2023-10-03 18:05 | NUR ---
SHIFT SUMMARY PT COMPLETED DIALYSIS TODAY. WOUND VAC PLACED TO RIGHT HEEL AND DSG CHANGED THIS SHIFT.
[2023-10-04 05:38] VITALS: BP 126/54
[2023-10-04 06:22] LABS: Hematocrit 29.6 % (33.0-51.0); Hemoglobin 9.3 g/dL (11.5-16.0)
[2023-10-04 06:50] LABS: Magnesium, Blood 2.4 mg/dL (1.6-2.4)
[2023-10-04 07:29] LABS: Albumin, Blood 2.6 g/dL (3.4-5.0); Anion Gap 8 mmol/L (3-11); Blood Urea Nitrogen 42 mg/dL (8-24); Bun/Creatinine Ratio 9.7 (12.0-20.0); CO2, Blood 30 mmol/L (21-32); Calcium, Blood 8.1 mg/dL (8.5-10.1); Chloride, Blood 100 mmol/L (98-108); Creatinine, Blood 4.35 mg/dL (0.40-1.00); Glomerular Filtration Rate 11 (60-); Glucose, Blood 356 mg/dL (70-99); Phosphorus, Blood 5.9 mg/dL (2.5-4.9); Potassium, Blood 4.4 mmol/L (3.5-5.5); Sodium, Blood 134 mmol/L (136-145); Vancomycin, Trough 24.2 ug/mL (5.0-10.0)
--- NOTE | 2023-10-04 07:55 | NUR ---
SHIFT SUMMARY. PATIENT WAS GRUMPY AND REFUSED VITALS AND HS MEDS. WOUND VAC DID NOT HAVE ANY DRAINAGE. UNABLE TO DRAW MORNING LABS THRU POWERGLIDE.DID LET US DO MORNING CARE WITH VITALS AND MEDS.
[2023-10-04 07:57] VITALS: BP 123/56
[2023-10-04 14:49] VITALS: BP 132/53
[2023-10-04 19:25] VITALS: BP 134/49
[2023-10-04] MEDS ORDERED: Loratadine 10 MG Tab PO ONE (23:45)
[2023-10-05] VITALS (17 sets, daily range): BP systolic 98–167; BP diastolic 32–97
[2023-10-05 04:53] LABS: Hematocrit 29.2 % (33.0-51.0)
[2023-10-05 05:16] LABS: Magnesium, Blood 2.4 mg/dL (1.6-2.4)
[2023-10-05 05:39] LABS: Albumin, Blood 2.5 g/dL (3.4-5.0); Anion Gap 11 mmol/L (3-11); Blood Urea Nitrogen 56 mg/dL (8-24); Bun/Creatinine Ratio 10.1 (12.0-20.0); CO2, Blood 28 mmol/L (21-32); Calcium, Blood 8.3 mg/dL (8.5-10.1); Chloride, Blood 101 mmol/L (98-108); Creatinine, Blood 5.56 mg/dL (0.40-1.00); Glomerular Filtration Rate 9 (60-); Glucose, Blood 158 mg/dL (70-99); Phosphorus, Blood 7.2 mg/dL (2.5-4.9); Potassium, Blood 4.7 mmol/L (3.5-5.5); Sodium, Blood 135 mmol/L (136-145)
[2023-10-05 05:41] LABS: Vancomycin, Trough 24.3 ug/mL (5.0-10.0)
[2023-10-05] MEDS ORDERED: Anticoagulant Sod Citrate Soln 3 ML SYR INJ PRN (08:05)
--- NOTE | 2023-10-05 08:39 | NUR ---
SHIFT SUMMARY PT IS A&OX4. VSS, LOW DIASTOLIC ON RA, 2L NC WHILE ASLEEP. DENIES PAIN. REFUSED ALL MEDICATIONS EXCEPT HER GLARGINE. PT REPOSITIONS SELF IN BED, ELEVATES LE. TOLERATING A CONS CARB DIET WITH 1500ML F.R. ASKED PT AT 2300 IF I COULD DO HER BLE DRESSING CHANGES, SHE REFUSED BECAUSE SHE WAS TRYING TO SLEEP. WOUND VAC TO R FOOT INTACT. NOOB THIS SHIFT. NO URINE OUTPUT AND NO BM THIS SHIFT. SLEPT WELL T/O NOC. CONTACT PRECAUTIONS MAINTAINED FOR MRSA. BED IN LOWEST POSITION, CALL LIGHT WITHIN REACH.
--- NOTE | 2023-10-05 17:02 | NUR ---
PT AOX4 AND COOPERATIVE OF CARE. PT IS ON BEDREST AND IS A LIFT PT. PT HAD DIALYSIS TODAY. WOUND VAC WORKING WELL ON FOOT, TREATED FOR PAIN PER EMAR. ABLE TO MAKE ALL NEEDS KNOWN. NO DISTRESS NOTED CALL LIGHT WITHIN REACH.
[2023-10-06] VITALS (15 sets, daily range): BP systolic 80–149; BP diastolic 40–78
[2023-10-06 05:25] LABS: Hematocrit 28.9 % (33.0-51.0); Hemoglobin 9.1 g/dL (11.5-16.0)
[2023-10-06 05:53] LABS: Magnesium, Blood 2.4 mg/dL (1.6-2.4)
[2023-10-06 05:54] LABS: Albumin, Blood 2.5 g/dL (3.4-5.0); Anion Gap 10 mmol/L (3-11); Blood Urea Nitrogen 48 mg/dL (8-24); Bun/Creatinine Ratio 10.3 (12.0-20.0); CO2, Blood 30 mmol/L (21-32); Calcium, Blood 8.3 mg/dL (8.5-10.1); Chloride, Blood 99 mmol/L (98-108); Creatinine, Blood 4.66 mg/dL (0.40-1.00); Glomerular Filtration Rate 11 (60-); Glucose, Blood 194 mg/dL (70-99); Phosphorus, Blood 6.3 mg/dL (2.5-4.9); Potassium, Blood 4.1 mmol/L (3.5-5.5); Sodium, Blood 135 mmol/L (136-145); Vancomycin, Random 19.1 ug/mL
[2023-10-06] MEDS ORDERED: Anticoagulant Sod Citrate Soln 3 ML SYR INJ PRN (07:35)
--- NOTE | 2023-10-06 08:07 | NUR ---
SHIFT SUMMARY PT IS A&OX4. VSS, LOW DIASTOLIC ON RA, 2L NC WHILE ASLEEP. C/O PAIN IN LOW BACK AND BLE. MEDICATED WITH 2MG DILAUDID AND 650MG OF TYLENOL WITH LITTLE EFFECT. FULL BED BATH, LINEN CHANGE AND BLE DRESSING CHANGES COMPLETED WITH DAY NURSE. MINIMAL DRAINING FROM LEG WOUNDS. PT REPOSITIONS SELF IN BED, ELEVATES LE. TOLERATING A CONS CARB DIET WITH 1500ML F.R. WOUND VAC TO R FOOT INTACT. NOOB THIS SHIFT. NO URINE OUTPUT AND LARGE SMEAR BM DURING BED BATH. SLEPT WELL T/O NOC ONCE SHE WAS FINALLY ABLE TO FALL ASLEEP. CONTACT PRECAUTIONS MAINTAINED FOR MRSA. BED IN LOWEST POSITION, CALL LIGHT WITHIN REACH.
[2023-10-06] MEDS ORDERED: Vancomycin HCL 1,000 MG in NS 250 ML IV SCH (12:00)
[2023-10-06] MEDS ORDERED: PROM25 PO (13:47)
[2023-10-06] MEDS ORDERED: VISBIOME 112.51 EACH PO (13:47)
[2023-10-06] MEDS ORDERED: SULTRIDS PO (13:50)
--- NOTE | 2023-10-06 15:30 | NUR ---
DRESSING CHANGED TO PT'S R FOOT, R GREAT TOE IS MISSING, XEROFORM DRESSING OVER AREA WITH STITCHES, NO REDNESS OR DRAINAGE NOTED, R HEEL WOUND VAC REMOVED, AREA IS PINK/RED WITH MOD SANG DRAINAGE, HOME WOUND VAC PLACED, PICS TAKEN OF TOE AND HEEL, PT GOYO WELL
--- NOTE | 2023-10-06 20:00 | NUR ---
DISCHARGE SUMMARY PATIENT WITH NO ACUTE EVENTS DURING SHIFT. HER WOUND VAC WAS CHANGED TODAY USING HOME CARE WOUND VAC.DRESSING CHANGED AND UNIT SIGNED OUT BY JEAN ARGUELLO. PATIENT TOLERATE WELL. PATIENT EDUCATION AND MEDICATION PACKET PRINTED AND SIGNED BY PATIENT. SHE VERBALIZES UNDERSTANDING OF ALL EDUCATION. DILAUDID HARD SCRIPT COPIED AND ORIGINAL GIVEN TO PATIENT. PATIENT LEFT UNIT VIA GURNEY WITH [facility] AT 1650 FOR HOME WITH HOME HEALTH ORDERED.
== END 2023-10-06 16:45 | disposition home health service (06) | DRG 616 ==
LOC: ER 12:54 → MEDS 15:44 → PCU 15:44 → MEDS 09-19 16:41 → PCU 09-22 16:34 → MEDS 09-24 16:49
PROVIDERS: Family Medicine; Internal Medicine Nephrology; Student in an Organized Health Care Education/Training Program; ADMIT Hospitalist
PROC: 5A1D70Z Performance of Urinary Filtration, Intermittent, Less than 6 Hours Per Day (ICD-10-PCS; 2023-09-16)
PROC: 5A09357 Assistance with Respiratory Ventilation, Less than 24 Consecutive Hours, Continuous Positive Airway Pressure (ICD-10-PCS; 2023-09-16)
PROC: 02HV33Z Insertion of Infusion Device into Superior Vena Cava, Percutaneous Approach (ICD-10-PCS; 2023-09-16)
PROC: 047R3Z1 Dilation of Right Posterior Tibial Artery using Drug-Coated Balloon, Percutaneous Approach (ICD-10-PCS; principal; 2023-09-22)
PROC: 047T3ZZ Dilation of Right Peroneal Artery, Percutaneous Approach (ICD-10-PCS; 2023-09-22)
PROC: 0J2TXYZ Change Other Device in Trunk Subcutaneous Tissue and Fascia, External Approach (ICD-10-PCS; 2023-09-24)
PROC: 0Y6P0Z1 Detachment at Right 1st Toe, High, Open Approach (ICD-10-PCS; 2023-09-29)
PROC: 0LBN0ZZ Excision of Right Lower Leg Tendon, Open Approach (ICD-10-PCS; 2023-09-29)
DX: E10.69 Type 1 diabetes mellitus with other specified complication (principal); G93.41 Metabolic encephalopathy; J96.22 Acute and chronic respiratory failure with hypercapnia; J96.21 Acute and chronic respiratory failure with hypoxia; I13.2 Hypertensive heart and chronic kidney disease with heart failure and with stage 5 chronic kidney disease, or end stage renal disease; F11.20 Opioid dependence, uncomplicated; L97.419 Non-pressure chronic ulcer of right heel and midfoot with unspecified severity; I50.32 Chronic diastolic (congestive) heart failure; D62 Acute posthemorrhagic anemia; M86.171 Other acute osteomyelitis, right ankle and foot; M86.671 Other chronic osteomyelitis, right ankle and foot; E66.2 Morbid (severe) obesity with alveolar hypoventilation; E87.1 Hypo-osmolality and hyponatremia; Z68.41 Body mass index [BMI] 40.0-44.9, adult; N18.6 End stage renal disease; N25.81 Secondary hyperparathyroidism of renal origin; Z99.2 Dependence on renal dialysis; D63.1 Anemia in chronic kidney disease; Z79.899 Other long term (current) drug therapy; F32.9 Major depressive disorder, single episode, unspecified; Z79.2 Long term (current) use of antibiotics; K59.00 Constipation, unspecified; Z79.4 Long term (current) use of insulin; L89.619 Pressure ulcer of right heel, unspecified stage; E10.621 Type 1 diabetes mellitus with foot ulcer; E10.622 Type 1 diabetes mellitus with other skin ulcer; E83.39 Other disorders of phosphorus metabolism; Z79.890 Hormone replacement therapy; E88.09 Other disorders of plasma-protein metabolism, not elsewhere classified; Z88.0 Allergy status to penicillin; E10.22 Type 1 diabetes mellitus with diabetic chronic kidney disease; E10.40 Type 1 diabetes mellitus with diabetic neuropathy, unspecified; E78.5 Hyperlipidemia, unspecified; F41.9 Anxiety disorder, unspecified; E03.9 Hypothyroidism, unspecified; G89.4 Chronic pain syndrome; Z90.710 Acquired absence of both cervix and uterus; M19.90 Unspecified osteoarthritis, unspecified site; F17.210 Nicotine dependence, cigarettes, uncomplicated; J44.9 Chronic obstructive pulmonary disease, unspecified; Z71.6 Tobacco abuse counseling; E87.5 Hyperkalemia
CPT/HCPCS: 36415; 36430; 36590; 37228; 37232; 71045; 73590; 73600; 73650; 73660; 75625; 75716; 75774; 76937; 77001; 80053; 80069; 80202; 82330; 82728; 82947; 83540; 83550; 83605; 83735; 84100; 84132; 84484; 85014; 85018; 85025; 85027; 86850; 86900; 86901; 86923; 87040; 87071; 87075; 87077; 87147; 87186; 87205; 88305; 88311; 93005; 93010; 94640; 94660; 94664; 94760; 94762; 96365; 97110; 97161; 99152; 99153; 99285-25; A9270; C1725; C1750; C1751; C1760; C1769; C1887; C1894; J0612; J0692; J0780; J1100; J1200; J1644; J1815; J2250; J2405; J2704; J2997; J3010; J3370; J7030; J7040; J7050; P9016; P9047; Q9967

== ENCOUNTER 2023-10-16 13:37 | Inpatient (IN) | payer MEDICARE, OTHER ==
[~2023-10-16] VITALS: Ht 182.9 cm; Wt 143.5 kg
[2023-10-16] VITALS (9 sets, daily range): BP systolic 70–125; BP diastolic 37–58
[~2023-10-16 13:37] MED LIST changes: -Calcium Acetat667 MG PO; +GABA300 PO; +PROMETHAZINE12.5 M1 PO; +SULTRIDS PO
[2023-10-16] MEDS ORDERED: OxyCODONE HCL 5 MG TAB PO ONE (14:20)
[2023-10-16] MEDS ORDERED: Ondansetron HCl 2 MG / ML 2ML Vial IV ONE (14:20)
[2023-10-16] MEDS ORDERED: Midodrine 5 MG Tab PO ONE (14:20)
[2023-10-16 14:34] LABS: BASOPHILS ABSOLUTE AUTO 0.03 K/mm3 (0.00-0.23); BASOPHILS PERCENT AUTO 0 % (0-2); EOSINOPHILS ABSOLUTE AUTO 0.21 K/mm3 (0.00-0.68); EOSINOPHILS PERCENT AUTO 3 % (0-6); Hematocrit 18.4 % (33.0-51.0); IMMATURE GRAN ABSOLUTE AUTO 0.04 K/mm3 (0.00-0.10); IMMATURE GRAN PERCENT AUTO 1 % (0-1); LYMPHOCYTES ABSOLUTE AUTO 0.69 K/mm3 (0.84-5.20); LYMPHOCYTES PERCENT AUTO 9 % (21-46); MONOCYTES ABSOLUTE AUTO 0.24 K/mm3 (0.16-1.47); MONOCYTES PERCENT AUTO 3 % (4-13); Mean Corpuscular HGB 30.1 pg (26.0-34.0); Mean Corpuscular HGB Conc 31.5 g/dL (31.5-36.5); Mean Corpuscular Volume 95 fL (80-100); NEUTROPHILS ABSOLUTE AUTO 6.54 K/mm3 (1.96-9.15); NEUTROPHILS PERCENT AUTO 84 % (41-73); NRBC ABSOLUTE 0.02 K/mm3 (0.00-0.02); NRBC Auto 0.3 /100 WBC (0.0-0.2); Platelet Count 202 K/mm3 (150-400); RDW Coefficient Variation 16.5 % (11.7-14.2); RDW Standard Deviation 51.1 fL (35.1-46.3); Red Blood Cell Count 1.93 M/mm3 (3.80-5.20); White Blood Cell Count 7.75 K/mm3 (4.00-11.30)
[2023-10-16 14:38] LABS: Hemoglobin 5.8 g/dL (11.5-16.0)
[2023-10-16 15:00] LABS: C-REACTIVE PROTEIN, EXT RANGE 1.21 mg/dL (0.000-0.300); Magnesium, Blood 3.2 mg/dL (1.6-2.4)
[2023-10-16 15:04] LABS: Albumin/Globulin Ratio 0.9 (0.8-1.8); Bilirubin, Total 0.3 mg/dL (0.1-1.0); Bun/Creatinine Ratio 9.2 (12.0-20.0); Calcium, Blood 8.1 mg/dL (8.5-10.1); Creatinine, Blood 10.3 mg/dL (0.40-1.00); Globulin, Blood 3.3 g/dL (2.2-4.0); Phosphorus, Blood 9.7 mg/dL (2.5-4.9); Total Protein, Blood 6.3 g/dL (6.4-8.2)
[2023-10-16 16:03] LABS: Influenza A, PCR NEGATIVE (NEGATIVE); Influenza B, PCR NEGATIVE (NEGATIVE); Resp Syncytial Virus, PCR NEGATIVE (NEGATIVE); SARS-Cov-2 (COVID-19) PCR, MMC NEGATIVE (NEGATIVE)
[2023-10-16] MEDS ORDERED: NS 1,000 ML IV ONE (16:10)
[2023-10-16] MEDS ORDERED: Promethazine HCl 25 MG Tab PO PRN (17:05)
[2023-10-16] MEDS ORDERED: Acetaminophen 325 MG TABLET PO PRN (17:05)
[2023-10-16] MEDS ORDERED: HYDROcodone 10-APAP 325 TAB PO PRN (17:05)
[2023-10-16] MEDS ORDERED: Naloxone HCl 0.4MG / ML 1ML Vial IV PRN (17:10)
--- NOTE | 2023-10-16 19:30 | NUR ---
ASSUMED CARE OF PATIENT UPON HER ARRIVAL FROM ED VIA [facility] AT 1915. TRANSFERRED TO BED FROM [facility] USING SLIDE SHEET. PT FAMILIAR TO THIS AUTHOR FROM PREVIOUS ADMISSION. NOTED TO BE HYPOTENSIVE ON ARRIVAL, WEAK IN ALL EXTREMITIES. HOME MEDICATIONS RECONCILED. PLAN IS FOR DIALYSIS TONIGHT.
[2023-10-16] MEDS ORDERED: Insulin Glargine-Yfgn 100 Unit/mL 3 ML SYR SC SCH (21:00)
[2023-10-16] MEDS ORDERED: Darbepoetin Alfa In Albumn Sol 60 MCG/0.3 ML Syringe SC ONE (21:10)
[2023-10-16] MEDS ORDERED: Norco 10-325 T1 EACH PO (22:59)
[2023-10-17] VITALS (21 sets, daily range): BP systolic 74–130; BP diastolic 31–86
[2023-10-17] MEDS ORDERED: HYDROcodone 10-APAP 325 TAB PO PRN (00:10)
[2023-10-17] MEDS ORDERED: Atorvastatin 10 MG Tab PO SCH (00:15)
[2023-10-17] MEDS ORDERED: Trimethoprim/Sulfamethoxazole SS Tab PO SCH (00:30)
--- NOTE | 2023-10-17 05:28 | NUR ---
SHIFT SUMMARY: C/O CHRONIC PAIN, GENERALIZED BUT MOSTLY IN HER BACK; MEDICATED PER EMAR. HAD SHORT SESSION OF DIALYSIS, AND RECEIVED A TOTAL OF TWO UNITS PRBC'S (ONE WITH HD AND ONE IN ED). CBG AT HS WAS 59; COMPLETELY ASYMPTOMATIC. WAS GIVEN SNACK AND APPLE JUICE AND RE-CHECK WAS 95; LANTUS INSULIN HELD PER THIS AUTHOR'S CLINICAL JUDGEMENT. NO EVENTS ON TELEMETRY, SR 60-80'S. HYPOTENSIVE AT START OF SHIFT AND DURING DIALYSIS. HAS POST OP WOUND ON R GREAT TOE AND WOUND ON L CALF, NEEDS DRESSING CHANGE ORDERS. ON BIPAP AT HS WITH CONTINUOUS OXIMETRY.
[2023-10-17] MEDS ORDERED: Levothyroxine Sodium 0.125 MG Tab PO SCH (06:00)
[2023-10-17 06:04] LABS: International Normalized Ratio 0.95; Prothrombin Time Results 10.2 Sec (9.7-11.5)
[2023-10-17 06:32] LABS: Magnesium, Blood 2.7 mg/dL (1.6-2.4)
[2023-10-17 06:35] LABS: BASOPHILS ABSOLUTE AUTO 0.05 K/mm3 (0.00-0.23); BASOPHILS PERCENT AUTO 1 % (0-2); EOSINOPHILS ABSOLUTE AUTO 0.31 K/mm3 (0.00-0.68); EOSINOPHILS PERCENT AUTO 5 % (0-6); Hematocrit 20.9 % (33.0-51.0); Hemoglobin 6.9 g/dL (11.5-16.0); IMMATURE GRAN ABSOLUTE AUTO 0.02 K/mm3 (0.00-0.10); IMMATURE GRAN PERCENT AUTO 0 % (0-1); LYMPHOCYTES ABSOLUTE AUTO 0.99 K/mm3 (0.84-5.20); LYMPHOCYTES PERCENT AUTO 17 % (21-46); MONOCYTES ABSOLUTE AUTO 0.31 K/mm3 (0.16-1.47); MONOCYTES PERCENT AUTO 5 % (4-13); Mean Corpuscular HGB 29.4 pg (26.0-34.0); Mean Corpuscular Volume 89 fL (80-100); Mean Platelet Volume 11.9 fL (9.1-12.4); NEUTROPHILS ABSOLUTE AUTO 4.19 K/mm3 (1.96-9.15); NEUTROPHILS PERCENT AUTO 71 % (41-73); Platelet Count 163 K/mm3 (150-400); RDW Coefficient Variation 18.5 % (11.7-14.2); RDW Standard Deviation 53.3 fL (35.1-46.3); Red Blood Cell Count 2.35 M/mm3 (3.80-5.20); White Blood Cell Count 5.87 K/mm3 (4.00-11.30)
[2023-10-17] MEDS ORDERED: Albumin (Human) 25gm/100ml 100 ML IV PRN (06:55)
[2023-10-17] MEDS ORDERED: Midodrine 5 MG Tab PO SCH ×2 (06:55→09:00)
[2023-10-17] MEDS ORDERED: Anticoagulant Sod Citrate Soln 3 ML SYR INJ PRN (06:55)
[2023-10-17 07:19] LABS: Albumin, Blood 2.8 g/dL (3.4-5.0); Albumin/Globulin Ratio 0.9 (0.8-1.8); Bilirubin, Total 0.4 mg/dL (0.1-1.0); Bun/Creatinine Ratio 8.7 (12.0-20.0); Creatinine, Blood 9.12 mg/dL (0.40-1.00); Globulin, Blood 3.2 g/dL (2.2-4.0); Phosphorus, Blood 8.8 mg/dL (2.5-4.9); Potassium, Blood 5.2 mmol/L (3.5-5.5)
[2023-10-17] MEDS ORDERED: Insulin Human Lispro 100 Units/ML 3ML Syringe SC SCH (07:30)
[2023-10-17] MEDS ORDERED: Insulin Regular 100 UNIT/ML 10ML Vial SC SCH (07:30)
[2023-10-17] MEDS ORDERED: Heparin Sodium,Porcine 5,000 UNIT/0.5 ML SDV SC SCH (08:00)
[2023-10-17] MEDS ORDERED: FLUoxetine HCL 20 MG CAP PO SCH (09:00)
[2023-10-17] MEDS ORDERED: Enoxaparin 30 MG/0.3 ML SYR SC SCH (09:00)
[2023-10-17] MEDS ORDERED: Sodium Zirconium Cyclosilicate 10 GM Packet PO SCH (09:00)
[2023-10-17 10:20] LABS: Hematocrit 23.4 % (33.0-51.0); Hemoglobin 7.9 g/dL (11.5-16.0)
[2023-10-17] MEDS ORDERED: Calcium Carbonate 500 MG Tab Chew PO PRN (14:55)
[2023-10-17] MEDS ORDERED: Omeprazole 20 MG CapCR PO SCH (15:00)
--- NOTE | 2023-10-17 19:34 | NUR ---
VSS except for low BP of 82/66, one time midordid given per order, A-Ox4, has not ambuleted during shift, states 7 out of 10 pain that was well managed with prn [place], state mild nausea and heartburn that well managed with prn phenergan and tums, on RA and BiPAP at night. Lungs diminished, Heart NS with prolong QTC of 0.52 on Tele, MD notifed, bowel sounds normative, R chest diaylisis cather C/D/I, had 5L off in diaylisis in AM. Pt has BLE venous ulcers, cleaned with wound cleanser, xeroform, nonadherent pad, abd pads, and kerlex, R big toe amp site cleaned with wound cleanser, xeroform, kerlex, R heal cleaned with NS, deberment dressing, lilian dressing, kerlex, all dressing C/D/I. Pt can make needs known, call jefferson in hand, bed in lowest position.
[2023-10-17] MEDS ORDERED: Insulin Glargine-Yfgn 100 Unit/mL 3 ML SYR SC SCH (21:00)
[2023-10-18] VITALS (15 sets, daily range): BP systolic 81–126; BP diastolic 40–74
[2023-10-18 06:15] LABS: BASOPHILS ABSOLUTE AUTO 0.04 K/mm3 (0.00-0.23); BASOPHILS PERCENT AUTO 1 % (0-2); EOSINOPHILS ABSOLUTE AUTO 0.25 K/mm3 (0.00-0.68); EOSINOPHILS PERCENT AUTO 6 % (0-6); Hematocrit 24.3 % (33.0-51.0); Hemoglobin 7.8 g/dL (11.5-16.0); IMMATURE GRAN ABSOLUTE AUTO 0.02 K/mm3 (0.00-0.10); IMMATURE GRAN PERCENT AUTO 0 % (0-1); LYMPHOCYTES ABSOLUTE AUTO 0.84 K/mm3 (0.84-5.20); LYMPHOCYTES PERCENT AUTO 19 % (21-46); MONOCYTES ABSOLUTE AUTO 0.33 K/mm3 (0.16-1.47); MONOCYTES PERCENT AUTO 7 % (4-13); Mean Corpuscular HGB 28.6 pg (26.0-34.0); Mean Corpuscular HGB Conc 32.1 g/dL (31.5-36.5); Mean Corpuscular Volume 89 fL (80-100); Mean Platelet Volume 11.5 fL (9.1-12.4); NEUTROPHILS ABSOLUTE AUTO 3.06 K/mm3 (1.96-9.15); NEUTROPHILS PERCENT AUTO 67 % (41-73); NRBC ABSOLUTE 0.02 K/mm3 (0.00-0.02); NRBC Auto 0.4 /100 WBC (0.0-0.2); Platelet Count 152 K/mm3 (150-400); RDW Coefficient Variation 19.6 % (11.7-14.2); RDW Standard Deviation 57.3 fL (35.1-46.3); Red Blood Cell Count 2.73 M/mm3 (3.80-5.20); White Blood Cell Count 4.54 K/mm3 (4.00-11.30)
--- NOTE | 2023-10-18 06:18 | NUR ---
SHIFT SUMMARY: NO ACUTE EVENTS. C/O CHRONIC PAIN WITH EMPHASIS ON LLE; MEDICATED PER EMAR WITH MODERATE RELIEF. NO EVENTS ON TELEMETRY, SR 80-90. DECLINED USE OF BIPAP WHILE SLEEPING, OPTED FOR USE OF O2 @ 2 L/MIN NC INSTEAD AND CONT OXIMETRY DID NOT ALARM. THIS AUTHOR NOTICED THAT PT DOES NOT HAVE CALCIUM ACETATE ORDERED ON INPATIENT MEDS, BUT SHE STATES SHE TAKES IT AT HOME. PLAN IS FOR HD TODAY.
[2023-10-18 06:42] LABS: Albumin, Blood 3.4 g/dL (3.4-5.0); Anion Gap 12 mmol/L (3-11); Blood Urea Nitrogen 50 mg/dL (8-24); Bun/Creatinine Ratio 7.5 (12.0-20.0); CO2, Blood 29 mmol/L (21-32); Calcium, Blood 8.1 mg/dL (8.5-10.1); Chloride, Blood 100 mmol/L (98-108); Creatinine, Blood 6.71 mg/dL (0.40-1.00); Glomerular Filtration Rate 7 (60-); Glucose, Blood 234 mg/dL (70-99); Magnesium, Blood 2.9 mg/dL (1.6-2.4); Phosphorus, Blood 7.8 mg/dL (2.5-4.9); Potassium, Blood 4.2 mmol/L (3.5-5.5); Sodium, Blood 137 mmol/L (136-145)
[2023-10-18] MEDS ORDERED: Albumin (Human) 25gm/100ml 100 ML IV PRN (07:15)
[2023-10-18] MEDS ORDERED: Anticoagulant Sod Citrate Soln 3 ML SYR INJ PRN (07:15)
[2023-10-18] MEDS ORDERED: Heparin Sodium,Porcine 5,000 UNIT/0.5 ML SDV SC SCH (09:00)
[2023-10-18] MEDS ORDERED: Calcium Acetate 667 MG Gel Cap PO SCH ×3 (11:30→17:30)
[2023-10-18] MEDS ORDERED: Sevelamer Carbonate 800 MG Tab PO SCH ×2 (13:50→17:30)
--- NOTE | 2023-10-18 19:48 | NUR ---
VSS, denies SOB, states 10 out of 10 pain that was well managed with prn norco, bedbound, A-OX4, on RA and CPAP at night. Lung diminished, heart NS on tele, bowel sounds normative, LBM today, auric on hemodylisis, R chest cather C/D/I, had dylisis today. BLE dressing changed, R dressing C/D/I, L dressing C/I with large amount of serosangious drainage, dressing on R big toe and R heel changed, new dressing C/D/I. Pt states mild nausea that was well managed with prn oral phenorgan. Pt can make needs known, call jefferson in hand, bed in lowest position.
--- NOTE | 2023-10-18 20:45 | NUR ---
CHANGED DRESSING TO PT'S LEFT CALF D/T HEAVY BLEEDING WHICH SATURATED THE DRESSING, CHUX UNDER PT'S LEG, GOWN, AND BEDDING. PT STATES WOUND HAS BEEN BLEEDING OFF AND ON OVER THE PAST WEEK, BUT HAD NOT BLED TODAY. BP LOW, MAP 60. COMPLETED BED CHANGE. BY THE TIME CARE WAS COMPLETE, THE NEW DRESSING WAS ALREADY SHADOWING. CALLED ON-CALL HOSPITALIST AND UPDATED WITH BLEEDING, BLOOD PRESSURE, AND H&H. PT DOES RECEIVE HEMODIALYSIS. RECEIVED ORDERS TO HOLD PRESSURE ON WOUND AND HOSPITALIST STATED WOULD REVIEW CHART AND PLACE ORDERS FOR MEDICATIONS, PLEASE SEE MAR.
[2023-10-18] MEDS ORDERED: Capsaicin 0.025% Cream TOP SCH (21:00)
[2023-10-18] MEDS ORDERED: Gabapentin 300 MG Cap PO SCH (21:00)
[2023-10-18] MEDS ORDERED: Tranexamic Acid 100 ML IV ONE (22:05)
--- NOTE | 2023-10-18 23:01 | NUR ---
PT FOUND TO NOT HAVE IV ACCESS, APPRECIATE ASSISTANCE FROM AGRICULTURAL ENGINEERING TECHNICIANS TO PLACE IV WHILE THIS NURSE HELD PRESSURE TO LEFT LOWER EXTREMITY AND APPLIED NEW DRESSING. CHUX SATURATED AGAIN WELL BEDDING. NEW IV TO LEFT AC.
[2023-10-18] MEDS ORDERED: LORazepam 0.5 MG Tab PO ONE (23:50)
[2023-10-19] VITALS (22 sets, daily range): BP systolic 88–150; BP diastolic 42–100
[2023-10-19] MEDS ORDERED: NS 500 ML IV SCH (00:15)
[2023-10-19 05:04] LABS: BASOPHILS ABSOLUTE AUTO 0.04 K/mm3 (0.00-0.23); BASOPHILS PERCENT AUTO 1 % (0-2); EOSINOPHILS ABSOLUTE AUTO 0.36 K/mm3 (0.00-0.68); EOSINOPHILS PERCENT AUTO 8 % (0-6); Hematocrit 20.8 % (33.0-51.0); Hemoglobin 6.3 g/dL (11.5-16.0); IMMATURE GRAN ABSOLUTE AUTO 0.03 K/mm3 (0.00-0.10); IMMATURE GRAN PERCENT AUTO 1 % (0-1); LYMPHOCYTES ABSOLUTE AUTO 0.88 K/mm3 (0.84-5.20); LYMPHOCYTES PERCENT AUTO 19 % (21-46); MONOCYTES ABSOLUTE AUTO 0.39 K/mm3 (0.16-1.47); MONOCYTES PERCENT AUTO 8 % (4-13); Mean Corpuscular HGB Conc 30.3 g/dL (31.5-36.5); Mean Platelet Volume 11.1 fL (9.1-12.4); NEUTROPHILS ABSOLUTE AUTO 3.05 K/mm3 (1.96-9.15); NEUTROPHILS PERCENT AUTO 64 % (41-73); Platelet Count 133 K/mm3 (150-400); RDW Standard Deviation 57.8 fL (35.1-46.3); Red Blood Cell Count 2.17 M/mm3 (3.80-5.20); White Blood Cell Count 4.75 K/mm3 (4.00-11.30)
[2023-10-19 05:13] LABS: Mean Corpuscular Volume 96 fL (80-100)
[2023-10-19 05:42] LABS: Albumin, Blood 3.6 g/dL (3.4-5.0); Albumin/Globulin Ratio 1.2 (0.8-1.8); Bilirubin, Total 0.4 mg/dL (0.1-1.0); Bun/Creatinine Ratio 7.1 (12.0-20.0); Calcium, Blood 8.4 mg/dL (8.5-10.1); Creatinine, Blood 6.16 mg/dL (0.40-1.00); Globulin, Blood 3.1 g/dL (2.2-4.0); Magnesium, Blood 2.7 mg/dL (1.6-2.4); Phosphorus, Blood 6.2 mg/dL (2.5-4.9); Potassium, Blood 4.2 mmol/L (3.5-5.5); Total Protein, Blood 6.7 g/dL (6.4-8.2)
--- NOTE | 2023-10-19 06:20 | NUR ---
SHIFT SUMMARY: STEPHANIE IS A&OX4. VSS, BP REMAINS LOW BUT CONSISTENT WITH TREND. PT STATES THAT HER BLOOD PRESSURE AT HOME IS IN THE SAME RANGE. IV TO LEFT AC PATENT. LAB RESULTS CALLED TO ON-CALL HOSPITALIST THIS AM, STATES HE WILL REVIEW AND PLACE ORDERS. DRESSING TO LEFT LOWER EXTREMITY C/D&I, PERIPHERAL PULSES INTACT AND CAPILLARY REFILL <3 SECONDS, EXTREMITY WARM. SHE IS TOLERATING PO INTAKE WELL, REPORTS MINIMAL RELIEF WITH PAIN MEDICATIONS PER MAR, AND STATED THAT SHE TAKES 50 UNITS OF LONG ACTING INSULIN AT BEDTIME. ON-CALL HOSPITALIST WAS CALLED AND ORDER UPDATED. SHE IS LYING IN BED WITH HER CALL LIGHT IN REACH. WILL GIVE REPORT TO DAY SHIFT RN.
[2023-10-19] MEDS ORDERED: Anticoagulant Sod Citrate Soln 3 ML SYR INJ PRN (08:20)
[2023-10-19] MEDS ORDERED: Alteplase Recombinant 2 MG / Vial IV PRN (14:10)
[2023-10-19] MEDS ORDERED: HYDHCL25 PO (16:43)
[2023-10-19] MEDS ORDERED: OXYC10TA19 PO (16:47)
[2023-10-19] MEDS ORDERED: BUSPIRONE HCL5 M6 PO (16:48)
[2023-10-19] MEDS ORDERED: RENVELA800 MG PO (16:48)
[2023-10-19] MEDS ORDERED: Calcium Acetat667 MG PO (16:51)
[2023-10-19] MEDS ORDERED: PANTOPRAZOLE SO40 M2 PO (16:52)
[2023-10-19] MEDS ORDERED: Gabapentin 300 MG Cap PO SCH (18:00)
[2023-10-19 18:07] LABS: Hematocrit 25.3 % (33.0-51.0); Hemoglobin 8.4 g/dL (11.5-16.0)
--- NOTE | 2023-10-19 20:02 | NUR ---
SHIFT NELLY- PT HAD NO FURTHER BLEEDING NOTED TODAY, HOWEVER SHE DID REQUIRE CATH FLOW IN HER PORT AFTER DIALYSIS TO MAINTAIN PATENTCY. PT RECIEVED 2 UNITS OF PRBC'S IN DIALYSIS. PAIN MED GIVEN AT THE TIME OF BEDSIDE REPORT. NO S&S OF DISTRESS NOTED AT THE TIME OF BEDSIDE REPORT. PT IN BED, CALL LIGHT IN REACH.
[2023-10-19] MEDS ORDERED: Insulin Glargine-Yfgn 100 Unit/mL 3 ML SYR SC SCH (21:00)
[2023-10-20] VITALS (23 sets, daily range): BP systolic 72–133; BP diastolic 37–81
--- NOTE | 2023-10-20 03:21 | NUR ---
DIRECTOR ZONE SUMMARY VSS. ALERT TO [facility] ASKED. REQUESTING AND RECEIVING ANALGESIC ABOUT Q 4 HRS IS ORDERED. VOICED MED EFFEECTIVE WITH PAIN OF BLE AND GENERALIZED AREAS. DRESSINGS OFLOWER EXT INTACT. STITCHES OF RIGHT GREAT TOE AMPUTATION INTACT. ENCOURAGED TO FOLLOW DIET AND FLUID RESTRICTION BOUNDARIES BUT NOT APPARENTLY EFFECTIVE, EVIDENCED BY ACCU CHECKS. MED TELE SR IN THE 80'S. HAS BEEN RESTING QUIETLY WITH FEW INTERRUPTIONS SINCE HS. CALL LIGHT IN REACH, RAILS UP X 2 AND BED IN LOW POSITION FOR SAFETY. CONTACT ISOLATION PRECAUTIONS CONTINUE. WILL CONTINUE TO MONITOR
[2023-10-20 06:09] LABS: BASOPHILS ABSOLUTE AUTO 0.04 K/mm3 (0.00-0.23); BASOPHILS PERCENT AUTO 1 % (0-2); EOSINOPHILS ABSOLUTE AUTO 0.48 K/mm3 (0.00-0.68); EOSINOPHILS PERCENT AUTO 10 % (0-6); Hematocrit 24.7 % (33.0-51.0); IMMATURE GRAN ABSOLUTE AUTO 0.02 K/mm3 (0.00-0.10); IMMATURE GRAN PERCENT AUTO 0 % (0-1); LYMPHOCYTES ABSOLUTE AUTO 0.88 K/mm3 (0.84-5.20); LYMPHOCYTES PERCENT AUTO 18 % (21-46); MONOCYTES ABSOLUTE AUTO 0.37 K/mm3 (0.16-1.47); MONOCYTES PERCENT AUTO 8 % (4-13); Mean Corpuscular HGB 29.4 pg (26.0-34.0); Mean Corpuscular HGB Conc 32.4 g/dL (31.5-36.5); Mean Platelet Volume 11.8 fL (9.1-12.4); NEUTROPHILS ABSOLUTE AUTO 3.09 K/mm3 (1.96-9.15); NEUTROPHILS PERCENT AUTO 63 % (41-73); Platelet Count 115 K/mm3 (150-400); RDW Coefficient Variation 18.1 % (11.7-14.2); RDW Standard Deviation 50.2 fL (35.1-46.3); RETICULOCYTE ABSOLUTE 0.1316 M/mm3 (0.0200-0.1100); RETICULOCYTE COUNT PERCENT 4.84 % (0.50-2.50); Red Blood Cell Count 2.72 M/mm3 (3.80-5.20); White Blood Cell Count 4.88 K/mm3 (4.00-11.30)
[2023-10-20 06:13] LABS: Mean Corpuscular Volume 91 fL (80-100)
[2023-10-20 07:08] LABS: Magnesium, Blood 2.1 mg/dL (1.6-2.4); Percent Saturation 28.3 % (15.0-50.0)
[2023-10-20 07:12] LABS: Albumin, Blood 3.6 g/dL (3.4-5.0); Albumin/Globulin Ratio 1.1 (0.8-1.8); Bilirubin, Total 0.4 mg/dL (0.1-1.0); Bun/Creatinine Ratio 6.5 (12.0-20.0); Creatinine, Blood 5.5 mg/dL (0.40-1.00); Globulin, Blood 3.2 g/dL (2.2-4.0); Phosphorus, Blood 5.5 mg/dL (2.5-4.9); Potassium, Blood 3.8 mmol/L (3.5-5.5); Total Protein, Blood 6.8 g/dL (6.4-8.2)
[2023-10-20] MEDS ORDERED: Albumin (Human) 25gm/100ml 100 ML IV PRN (07:45)
--- NOTE | 2023-10-20 08:20 | NUR ---
BG THIS AM 419. CALLED GEOCHEMICAL LABORATORY TECHNICIAN TO INFORM, NO ANSWER. GIVEN 10 UNITS HUMOLOG INSULIN PER MAR. PATIENT WILL BE TRANSPORTED TO DIALYSIS SHORTLY. PATIENT ASYMPTOMATIC, NO OTHER CONCERNS AT THIS TIME.
[2023-10-20] MEDS ORDERED: Sod Ferric Gluc Complx/Sucrose 125 MG in NS 100 ML IV SCH (09:00)
[2023-10-20] MEDS ORDERED: Insulin Human Lispro 100 Units/ML 3ML Syringe SC SCH ×2 (11:30→16:30)
--- NOTE | 2023-10-20 17:59 | NUR ---
SHIFT SUMMARY PATIENT A/OX4. PATIENT WITH ELEVATED BLOOD GLUCOSE THIS AM OF 419 PRIOR TO BREAKFAST, MD NOTIFIED AND ADJUSTMENTS WERE MADE TO HER INSULIN. HAD DIALYSIS THIS AM. WHEN ARRIVED BACK TO THE UNIT AFTER DIALYSIS WAS ADMINISTERED PRN MIDODRINE FOR HYPOTENSION. WOUND CARE PROVIDED TO BLE. PATIENT COMPLAINING OF BLE PAIN AND GENERALIZED PAIN THROUGHOUT THE DAY, GIVEN NORCO PER JUN. NO OTHER CONCERNS AT THIS TIME.
[2023-10-21] VITALS (12 sets, daily range): BP systolic 94–160; BP diastolic 33–119
--- NOTE | 2023-10-21 03:23 | NUR ---
ASSEMBLER ENGINE SUMMARY VSS. PT HAD DIALYSIS ON DAY SHIFT, AM RN REPORTED PT HAVING ABOUT 4 L TAKEN OFF. RESPS EVEN. ALERT AND ORIENTED. ENCOURAGED TO COMPLY WITH DIETARY AND FLUID RESTRICTIONS, BUT PT VOICED IRRITATION WITH THIS. HOB ELEVATED AND PT ON O2 PER NC. REQUESTING AND TAKING NORCO 1 TAB ABOUT EVERY 4 HRS ORDERED. NO C/O RESP DISTRESS. ABLE TO MOVE SELF IN BED. CALL LIGHT IN REACH, RAILS UP X 2 AND BED IN LOW POSITION FOR SAFETY. DRESSINGS OF BLE CDI. WILL CONT TO MONITOR
[2023-10-21 06:16] LABS: Hematocrit 27.7 % (33.0-51.0); Hemoglobin 8.8 g/dL (11.5-16.0)
[2023-10-21 06:42] LABS: Albumin, Blood 3.9 g/dL (3.4-5.0); Anion Gap 11 mmol/L (3-11); Blood Urea Nitrogen 27 mg/dL (8-24); Bun/Creatinine Ratio 6.4 (12.0-20.0); CO2, Blood 29 mmol/L (21-32); Calcium, Blood 9.6 mg/dL (8.5-10.1); Chloride, Blood 99 mmol/L (98-108); Creatinine, Blood 4.25 mg/dL (0.40-1.00); Glomerular Filtration Rate 12 (60-); Glucose, Blood 437 mg/dL (70-99); Magnesium, Blood 2.5 mg/dL (1.6-2.4); Phosphorus, Blood 4.7 mg/dL (2.5-4.9); Potassium, Blood 3.8 mmol/L (3.5-5.5); Sodium, Blood 135 mmol/L (136-145)
[2023-10-21] MEDS ORDERED: Anticoagulant Sod Citrate Soln 3 ML SYR INJ PRN (08:00)
--- NOTE | 2023-10-21 13:54 | NUR ---
1100 BLADDER SCAN 773, WHEN PT STRAIGHT CATHED FOR 20ML, NO PVR URINE IN BLADDER. HAD VOIDED 50ML JUST PRIOR TO ST CATH.
--- NOTE | 2023-10-21 18:19 | NUR ---
SUMMARY- PT A/O X4. DIALYSIS TODAY, STATED THEY TOOK OFF 1L AND HAS TO STOP BEFORE ALL OF TX RELATED TO LOW BP'S. MIDODRINE ADMIN PER RX. BLOOD SUGARS IMPORVED OVER THE SHIFT. PT IS NONCOMPLIANT WITH DIABETIC DIET AND ALL DAY EATING HIGH CARB SNACKS, CRACKERS AND CHIPS FAMILY IS BRINGING IN. HAS PUDDING IN THE ROOM, REG NOT DIABETIC. ASKED RN TO GET HER PUDDING, RN REFUSED. PT BECAME ANGRY AND SAID"IM A GROWN DAMN WOMEN AND ILL EAT WHAT I WANT" I STATED I WOULD NOT HELP HER GET IT LONG WE WERE FIGHTING TO KEEP HER SUGARS OUT OF 400 RANGE. PT WAS NOT HAPPY ABOUT THIS. PT'S DRESSINGS CHANGED TO BLE 1330. PHYSICAL THERAPY WORKED WITH PT AT 1300 AND WHILE LEGS WERE DEPENDANT, RLE BEGAN BLEEDING, SATURATED DRESSING. ONCE PT BACK TO BED AND LEG ELEVATED, RN TOOK DRESSING DOWN AND BLEEDING HAD STOPPED. PT'S CHRONIC PAIN IN LOW BACK AND FEET CONTROLLED WITH NORCO 10MG PRN Q4-6. SOCIAL SERVICE WORKING ON HOME EQUIPTMENT FOR DC LIKELY TOMORROW. WILL REPORT TO AYALA DOLAN
[2023-10-22 04:20] VITALS: BP 108/52
[2023-10-22 05:23] LABS: BASOPHILS ABSOLUTE AUTO 0.05 K/mm3 (0.00-0.23); BASOPHILS PERCENT AUTO 1 % (0-2); EOSINOPHILS ABSOLUTE AUTO 0.56 K/mm3 (0.00-0.68); EOSINOPHILS PERCENT AUTO 9 % (0-6); Hematocrit 27.7 % (33.0-51.0); Hemoglobin 8.8 g/dL (11.5-16.0); IMMATURE GRAN ABSOLUTE AUTO 0.03 K/mm3 (0.00-0.10); IMMATURE GRAN PERCENT AUTO 1 % (0-1); LYMPHOCYTES ABSOLUTE AUTO 1.08 K/mm3 (0.84-5.20); LYMPHOCYTES PERCENT AUTO 17 % (21-46); MONOCYTES ABSOLUTE AUTO 0.39 K/mm3 (0.16-1.47); MONOCYTES PERCENT AUTO 6 % (4-13); Mean Corpuscular HGB 29.6 pg (26.0-34.0); Mean Corpuscular HGB Conc 31.8 g/dL (31.5-36.5); Mean Corpuscular Volume 93 fL (80-100); Mean Platelet Volume 11.4 fL (9.1-12.4); NEUTROPHILS ABSOLUTE AUTO 4.16 K/mm3 (1.96-9.15); NEUTROPHILS PERCENT AUTO 66 % (41-73); Platelet Count 143 K/mm3 (150-400); RDW Coefficient Variation 18.2 % (11.7-14.2); RDW Standard Deviation 57.1 fL (35.1-46.3); Red Blood Cell Count 2.97 M/mm3 (3.80-5.20); White Blood Cell Count 6.27 K/mm3 (4.00-11.30)
--- NOTE | 2023-10-22 05:25 | NUR ---
PATIENT IS A&OX4, VITALS ARE STABLE, ON 2LITERS OF NC. PATIENT CALLS APPROPRIATELY. ON TELE RUNNING SINUS RHYTHM AT 70. BLOOD GLUCOSE WAS IN THE 200S AND HER NIGHTLY INSULINE WAS GIVEN. PATIENT IS ON A 1500 FLUID RESTRICTION. 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 HAS RED BLISTER TO RIGHT LEG, NEUROTIC WOUND TO RIGHT HEEL. 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 PATIENT IS NOT COMPLIENT WITH CURRENT ORDERED DIET BUT WHEN STAFF EDUCATED HER SHE AGREE TO LIMIT EATING FOODS THAT ARE NOT WITHIN HER DIET. PLAN IS FOR POSSIBLE D/C DURING THE DAY SHIFT.
[2023-10-22 06:04] LABS: Albumin, Blood 3.7 g/dL (3.4-5.0); Albumin/Globulin Ratio 1.2 (0.8-1.8); Bilirubin, Total 0.3 mg/dL (0.1-1.0); Bun/Creatinine Ratio 7.5 (12.0-20.0); Calcium, Blood 9.6 mg/dL (8.5-10.1); Creatinine, Blood 4.83 mg/dL (0.40-1.00); Globulin, Blood 3.2 g/dL (2.2-4.0); Magnesium, Blood 2.5 mg/dL (1.6-2.4); Phosphorus, Blood 4.6 mg/dL (2.5-4.9); Total Protein, Blood 6.9 g/dL (6.4-8.2)
[2023-10-22 07:38] VITALS: BP 90/42
[2023-10-22] MEDS ORDERED: Norco 5-325 Ta1 EACH PO (12:48)
--- NOTE | 2023-10-22 15:14 | NUR ---
Pt D/C at 1510, VSS, denies SOB, states 8 out of 10 pain that was well managed with prn norco, bedbound 2x holar lift up to wheelchair, on RA and CPAP at night. D/C instructions given, holar lift at home comformed, transfer by home wheel chair, safety ensured.
== END 2023-10-22 15:10 | disposition home health service (06) | DRG 683 ==
LOC: ER 13:37 → MEDS 13:38
PROVIDERS: Emergency Medicine; Family Medicine; Internal Medicine Nephrology; ADMIT Internal Medicine
PROC: 30233N1 Transfusion of Nonautologous Red Blood Cells into Peripheral Vein, Percutaneous Approach (ICD-10-PCS; 2023-10-16)
PROC: 30233K1 Transfusion of Nonautologous Frozen Plasma into Peripheral Vein, Percutaneous Approach (ICD-10-PCS; 2023-10-16)
PROC: 5A1D70Z Performance of Urinary Filtration, Intermittent, Less than 6 Hours Per Day (ICD-10-PCS; principal; 2023-10-18)
DX: N17.9 Acute kidney failure, unspecified (principal); D62 Acute posthemorrhagic anemia; I50.32 Chronic diastolic (congestive) heart failure; Z68.41 Body mass index [BMI] 40.0-44.9, adult; I13.2 Hypertensive heart and chronic kidney disease with heart failure and with stage 5 chronic kidney disease, or end stage renal disease; F11.20 Opioid dependence, uncomplicated; E87.1 Hypo-osmolality and hyponatremia; D63.1 Anemia in chronic kidney disease; N18.6 End stage renal disease; Z99.2 Dependence on renal dialysis; E03.9 Hypothyroidism, unspecified; F32.9 Major depressive disorder, single episode, unspecified; E66.01 Morbid (severe) obesity due to excess calories; E11.22 Type 2 diabetes mellitus with diabetic chronic kidney disease; G47.33 Obstructive sleep apnea (adult) (pediatric); F17.210 Nicotine dependence, cigarettes, uncomplicated; E83.39 Other disorders of phosphorus metabolism; E83.41 Hypermagnesemia; E87.5 Hyperkalemia; J45.909 Unspecified asthma, uncomplicated; E11.40 Type 2 diabetes mellitus with diabetic neuropathy, unspecified; I89.0 Lymphedema, not elsewhere classified; E78.5 Hyperlipidemia, unspecified; F41.9 Anxiety disorder, unspecified; E87.70 Fluid overload, unspecified; N25.81 Secondary hyperparathyroidism of renal origin; J44.9 Chronic obstructive pulmonary disease, unspecified; F32.A Depression, unspecified; G47.00 Insomnia, unspecified; G89.4 Chronic pain syndrome; M19.90 Unspecified osteoarthritis, unspecified site; D50.9 Iron deficiency anemia, unspecified; Z86.14 Personal history of Methicillin resistant Staphylococcus aureus infection; Z98.890 Other specified postprocedural states; Z79.4 Long term (current) use of insulin; Z90.710 Acquired absence of both cervix and uterus; Z99.89 Dependence on other enabling machines and devices; Z88.0 Allergy status to penicillin; Z79.899 Other long term (current) drug therapy; Z79.890 Hormone replacement therapy; Z87.19 Personal history of other diseases of the digestive system
CPT/HCPCS: 0241U; 36415; 36430; 71045; 80053; 80069; 82607; 82728; 82746; 82947; 83036; 83540; 83550; 83690; 83735; 84100; 84145; 84484; 85014; 85018; 85025; 85045; 85610; 85730; 86140; 86850; 86900; 86901; 86923; 93005; 93010; 94660; 94762; 96361; 96372; 96374; 96375; 97110; 97112; 97161; 99285-25; A9270; G0378; J0881; J1815; J2405; J2597; J2916; J7030; J7040; P9016; P9047; P9059

== ENCOUNTER 2023-11-24 04:02 | Day surgery (SDC) | payer MEDICARE, OTHER ==
[~2023-11-24 04:02] MED LIST changes: +ALBU2.5V5 INH; +AMOCLA500 PO; +BUSPIRONE HCL5 M6 PO; +Calcium Acetat667 MG PO; +DULERA 100 MCG/13 GM INH; +OXYC10TA19 PO; +PANT20 PO; +PANTOPRAZOLE SO40 M2 PO; +RENVELA800 MG PO
[2023-11-24] MEDS ORDERED: Lidocaine HCl 4% Cream 5 GM ONE (13:02)
== END 2023-11-24 23:20 | disposition home or self-care (01) ==
LOC: WOUND 04:02
DX: E10.621 Type 1 diabetes mellitus with foot ulcer (principal); L97.412 Non-pressure chronic ulcer of right heel and midfoot with fat layer exposed; L97.529 Non-pressure chronic ulcer of other part of left foot with unspecified severity; L97.422 Non-pressure chronic ulcer of left heel and midfoot with fat layer exposed; I89.0 Lymphedema, not elsewhere classified; E10.40 Type 1 diabetes mellitus with diabetic neuropathy, unspecified; I13.0 Hypertensive heart and chronic kidney disease with heart failure and stage 1 through stage 4 chronic kidney disease, or unspecified chronic kidney disease; E10.22 Type 1 diabetes mellitus with diabetic chronic kidney disease; I50.9 Heart failure, unspecified; N18.30 Chronic kidney disease, stage 3 unspecified; J44.9 Chronic obstructive pulmonary disease, unspecified; S81.001D Unspecified open wound, right knee, subsequent encounter; S91.109D Unspecified open wound of unspecified toe(s) without damage to nail, subsequent encounter; I87.313 Chronic venous hypertension (idiopathic) with ulcer of bilateral lower extremity; L89.613 Pressure ulcer of right heel, stage 3; Z88.0 Allergy status to penicillin; X58.XXXD Exposure to other specified factors, subsequent encounter
CPT/HCPCS: A6214; A9270; G0463

== ENCOUNTER 2023-12-01 02:46 | Day surgery (SDC) | payer MEDICARE, OTHER | END 2023-12-01 22:40 | disposition home or self-care (01) | LOC: WOUND 02:46 | DX: I87.313 Chronic venous hypertension (idiopathic) with ulcer of bilateral lower extremity (principal); L89.613 Pressure ulcer of right heel, stage 3 | CPT/HCPCS: A6214; G0463 ==

== ENCOUNTER 2023-12-28 21:08 | Inpatient (IN) | payer MEDICARE, OTHER ==
[~2023-12-28] VITALS: Ht 182.9 cm; Wt 140.7 kg
[2023-12-28] MEDS ORDERED: HYDROmorphone HCl/Pf 1MG SYR IV ONE (21:45)
[2023-12-28] MEDS ORDERED: Cefepime HCl 1,000 MG in NS 100 ML IV ONE (21:45)
[2023-12-28 22:36] LABS: BASOPHILS ABSOLUTE AUTO 0.05 K/mm3 (0.00-0.23); BASOPHILS PERCENT AUTO 1 % (0-2); EOSINOPHILS ABSOLUTE AUTO 0.34 K/mm3 (0.00-0.68); EOSINOPHILS PERCENT AUTO 4 % (0-6); Hematocrit 27.5 % (33.0-51.0); Hemoglobin 8.9 g/dL (11.5-16.0); IMMATURE GRAN ABSOLUTE AUTO 0.11 K/mm3 (0.00-0.10); IMMATURE GRAN PERCENT AUTO 1 % (0-1); LYMPHOCYTES ABSOLUTE AUTO 0.69 K/mm3 (0.84-5.20); LYMPHOCYTES PERCENT AUTO 8 % (21-46); MONOCYTES ABSOLUTE AUTO 0.36 K/mm3 (0.16-1.47); MONOCYTES PERCENT AUTO 4 % (4-13); Mean Corpuscular HGB 28.6 pg (26.0-34.0); Mean Corpuscular HGB Conc 32.4 g/dL (31.5-36.5); Mean Corpuscular Volume 88 fL (80-100); NEUTROPHILS ABSOLUTE AUTO 7.52 K/mm3 (1.96-9.15); NEUTROPHILS PERCENT AUTO 83 % (41-73); RDW Coefficient Variation 15.9 % (11.7-14.2); RDW Standard Deviation 51.2 fL (35.1-46.3); Red Blood Cell Count 3.11 M/mm3 (3.80-5.20); White Blood Cell Count 9.07 K/mm3 (4.00-11.30)
[2023-12-28 22:49] LABS: Albumin, Blood 2.2 g/dL (3.4-5.0); Albumin/Globulin Ratio 0.4 (0.8-1.8); Bilirubin, Total 0.4 mg/dL (0.1-1.0); Calcium, Blood 8.6 mg/dL (8.5-10.1); Creatinine, Blood 6.01 mg/dL (0.40-1.00); Potassium, Blood 3.6 mmol/L (3.5-5.5); Total Protein, Blood 7.2 g/dL (6.4-8.2)
[2023-12-28 23:13] LABS: Platelet Count 330 K/mm3 (150-400)
[2023-12-29] VITALS (17 sets, daily range): BP systolic 97–153; BP diastolic 53–84
[2023-12-29] MEDS ORDERED: HYDROmorphone HCl 2 MG Tab PO PRN (01:12)
[2023-12-29] MEDS ORDERED: FLU VACC TS2024-25(6MOS UP)/PF 45 MCG/0.5 ML SYRINGE IM SCH (01:25)
[2023-12-29] MEDS ORDERED: Bisacodyl 10 MG Supp PR PRN (01:30)
[2023-12-29] MEDS ORDERED: Magnesium Hydroxide Conc 10 ML UDC PO PRN (01:30)
[2023-12-29] MEDS ORDERED: Acetaminophen 325 MG TABLET PO PRN (01:30)
[2023-12-29] MEDS ORDERED: Midodrine 5 MG Tab PO PRN (02:05)
[2023-12-29] MEDS ORDERED: Promethazine HCl 25 MG Tab PO PRN (02:10)
[2023-12-29] MEDS ORDERED: Albuterol 2.5 MG/3 ML VIAL INH PRN (02:10)
[2023-12-29] MEDS ORDERED: HYDMOR4 PO (02:17)
[2023-12-29] MEDS ORDERED: 1/2 NS 250ml250 ML (02:21)
[2023-12-29] MEDS ORDERED: ZOCOR20 MG PO (02:21)
[2023-12-29] MEDS ORDERED: Vancomycin HCL 2,000 MG in NS 500 ML IV ONE (02:35)
[2023-12-29] MEDS ORDERED: Albuterol HFA200 ACT/6.7 GM INH INH PRN (03:00)
[2023-12-29 04:24] LABS: BASOPHILS ABSOLUTE AUTO 0.03 K/mm3 (0.00-0.23); BASOPHILS PERCENT AUTO 0 % (0-2); EOSINOPHILS ABSOLUTE AUTO 0.29 K/mm3 (0.00-0.68); EOSINOPHILS PERCENT AUTO 3 % (0-6); Hematocrit 27.8 % (33.0-51.0); Hemoglobin 8.5 g/dL (11.5-16.0); IMMATURE GRAN ABSOLUTE AUTO 0.04 K/mm3 (0.00-0.10); IMMATURE GRAN PERCENT AUTO 1 % (0-1); LYMPHOCYTES ABSOLUTE AUTO 0.77 K/mm3 (0.84-5.20); LYMPHOCYTES PERCENT AUTO 9 % (21-46); MONOCYTES PERCENT AUTO 5 % (4-13); Mean Corpuscular HGB 28.5 pg (26.0-34.0); Mean Corpuscular HGB Conc 30.6 g/dL (31.5-36.5); Mean Platelet Volume 10.3 fL (9.1-12.4); NEUTROPHILS ABSOLUTE AUTO 6.98 K/mm3 (1.96-9.15); NEUTROPHILS PERCENT AUTO 82 % (41-73); Platelet Count 363 K/mm3 (150-400); RDW Coefficient Variation 15.9 % (11.7-14.2); RDW Standard Deviation 54.3 fL (35.1-46.3); Red Blood Cell Count 2.98 M/mm3 (3.80-5.20); White Blood Cell Count 8.51 K/mm3 (4.00-11.30)
[2023-12-29 04:27] LABS: Mean Corpuscular Volume 93 fL (80-100)
[2023-12-29] MEDS ORDERED: Mometasone/Formoterol MDI 100/5 mcg 13 GM INH SCH (05:05)
[2023-12-29] MEDS ORDERED: Levothyroxine Sodium 0.125 MG Tab PO SCH (06:00)
[2023-12-29] MEDS ORDERED: Insulin Human Lispro 100 Units/ML 3ML Syringe SC SCH ×2 (06:00→16:30)
[2023-12-29] MEDS ORDERED: Pantoprazole Sodium 40 MG Tab PO SCH (06:00)
[2023-12-29 06:16] LABS: Albumin, Blood 2.3 g/dL (3.4-5.0); Albumin/Globulin Ratio 0.5 (0.8-1.8); Bilirubin, Total 0.3 mg/dL (0.1-1.0); Bun/Creatinine Ratio 8.1 (12.0-20.0); Calcium, Blood 8.6 mg/dL (8.5-10.1); Creatinine, Blood 6.33 mg/dL (0.40-1.00); Globulin, Blood 4.7 g/dL (2.2-4.0); Potassium, Blood 3.2 mmol/L (3.5-5.5)
[2023-12-29] MEDS ORDERED: DiphenhydrAMINE HCl 50 MG Cap PO PRN (06:25)
[2023-12-29] MEDS ORDERED: Potassium Chl 20MEQ/Water100ML 100 ML IV SCH (07:55)
[2023-12-29] MEDS ORDERED: Sevelamer Carbonate 800 MG Tab PO SCH (08:30)
[2023-12-29] MEDS ORDERED: Calcium Acetate 667 MG Gel Cap PO SCH (08:30)
--- NOTE | 2023-12-29 08:30 | NUR ---
CALL TO DR SAMS FOR PODIATRY CONSULT: WOULD LIKE PT TO HAVE XR AND IR CONSULT DONE PRIOR TO HIM SEEING HER AT 12PM. DIAYLSIS WOULD LIKE HER THERE FOR DIALYSIS BETWEEN 0900 AND 0930.
[2023-12-29] MEDS ORDERED: Anticoagulant Sod Citrate Soln 3 ML SYR INJ PRN (08:40)
[2023-12-29] MEDS ORDERED: Potassium Chloride 20 MEQ TabCR PO ONE (08:40)
[2023-12-29] MEDS ORDERED: Heparin Sodium,Porcine 5,000 UNIT/0.5 ML SDV SC SCH (09:00)
[2023-12-29] MEDS ORDERED: Lactobacil 2-S.Thermo-Bifido 1 1 Cap PO SCH (09:00)
[2023-12-29] MEDS ORDERED: Furosemide 80 MG Tab PO SCH ×2 (09:00)
[2023-12-29] MEDS ORDERED: FLUoxetine HCL 20 MG CAP PO SCH (09:00)
[2023-12-29] MEDS ORDERED: Sennosides 8.6 MG Tab PO SCH (09:00)
[2023-12-29] MEDS ORDERED: HyDROXyzine HCl 25 MG Tab PO SCH (09:00)
[2023-12-29] MEDS ORDERED: Gabapentin 300 MG Cap PO SCH (09:00)
[2023-12-29] MEDS ORDERED: Docusate Sodium 100 MG Cap PO SCH (09:00)
[2023-12-29] MEDS ORDERED: BusPIRone HCl 5 MG Tab PO SCH (09:00)
[2023-12-29] MEDS ORDERED: NS 250 ML IV SCH (09:05)
[2023-12-29] MEDS ORDERED: Darbepoetin Alfa In Albumn Sol 60 MCG/0.3 ML Syringe SC ONE (16:00)
--- NOTE | 2023-12-29 16:51 | NUR ---
DR SAMS TO BEDSIDE FOR PODIATRY CONSULT. RECOMMENDS BKA. REQUESTED ORDER FOR ORTHO CONSULT BE PLACED.
--- NOTE | 2023-12-29 19:08 | NUR ---
END OF SHIFT SUMMARY: A&Ox4. PLEASANT AND COOPERATIVE WITH CARE. CALLS APPROPRIATELY AND IS ABLE TO ADVOCATE NEEDS EFFECTIVELY. BEDREST. OLIGURIA SECONDARY TO ESRD. LBM TWO DAYS AGO AND REPORTS IT IS COMMON FOR HER TO NOT HAVE ONE FOR SEVERAL DAYS. TAKES MEDS WHOLE WITH FLUIDS. SEVERE PAIN IN RLE; MEDICATED PRN DILAUDID 4MG q4h PRN (REQUESTS ROUTINELY). IR CONSULT TODAY; PLANS FOR PROCEDURE FOR REVASCULARIZATION TOMORROW; WILL BE NPO AFTER DINNER. PODIATRY CONSULTED AND RECOMMENDING RIGHT BKA; CONSULT FOR ORTHO PLACED; KLOPPER WILL SPEAK WITH DR SAMS. NEPHROLOGY CONSULTED AND DIALYSIS DONE TODAY. MEPILEX PLACED ON WOUND TO RIGHT HEEL AND LEFT FOREARM. SALINE LOCKED RIGHT AC. BED IN LOWEST POSITION. CALL LIGHT WITHIN REACH. ALL NEEDS MET. REPORT TO ONCOMING NURSE.
[2023-12-29] MEDS ORDERED: Insulin Glargine-Yfgn 100 Unit/mL 3 ML SYR SC SCH (21:00)
[2023-12-29] MEDS ORDERED: Cefepime HCl 500 MG in NS 100 ML IV SCH (22:00)
[2023-12-30] VITALS (22 sets, daily range): BP systolic 84–131; BP diastolic 41–103
[2023-12-30 05:07] LABS: BASOPHILS ABSOLUTE AUTO 0.03 K/mm3 (0.00-0.23); BASOPHILS PERCENT AUTO 0 % (0-2); EOSINOPHILS PERCENT AUTO 4 % (0-6); Hematocrit 27.2 % (33.0-51.0); Hemoglobin 8.2 g/dL (11.5-16.0); IMMATURE GRAN ABSOLUTE AUTO 0.05 K/mm3 (0.00-0.10); IMMATURE GRAN PERCENT AUTO 1 % (0-1); LYMPHOCYTES ABSOLUTE AUTO 0.55 K/mm3 (0.84-5.20); LYMPHOCYTES PERCENT AUTO 8 % (21-46); MONOCYTES ABSOLUTE AUTO 0.39 K/mm3 (0.16-1.47); MONOCYTES PERCENT AUTO 6 % (4-13); Mean Corpuscular HGB 28.3 pg (26.0-34.0); Mean Corpuscular HGB Conc 30.1 g/dL (31.5-36.5); Mean Corpuscular Volume 94 fL (80-100); Mean Platelet Volume 10.4 fL (9.1-12.4); NEUTROPHILS ABSOLUTE AUTO 5.53 K/mm3 (1.96-9.15); NEUTROPHILS PERCENT AUTO 81 % (41-73); Platelet Count 317 K/mm3 (150-400); RDW Coefficient Variation 15.8 % (11.7-14.2); RDW Standard Deviation 54.2 fL (35.1-46.3); White Blood Cell Count 6.85 K/mm3 (4.00-11.30)
[2023-12-30 05:33] LABS: Albumin, Blood 2.1 g/dL (3.4-5.0); Anion Gap 14 mmol/L (3-11); Blood Urea Nitrogen 37 mg/dL (8-24); Bun/Creatinine Ratio 7.3 (12.0-20.0); CO2, Blood 27 mmol/L (21-32); Calcium, Blood 8.9 mg/dL (8.5-10.1); Chloride, Blood 102 mmol/L (98-108); Creatinine, Blood 5.08 mg/dL (0.40-1.00); Glomerular Filtration Rate 9 (60-); Glucose, Blood 142 mg/dL (70-99); Magnesium, Blood 2.4 mg/dL (1.6-2.4); Phosphorus, Blood 4.4 mg/dL (2.5-4.9); Potassium, Blood 3.8 mmol/L (3.5-5.5); Sodium, Blood 139 mmol/L (136-145); Vancomycin, Random 18.7 ug/mL
[2023-12-30] MEDS ORDERED: Anticoagulant Sod Citrate Soln 3 ML SYR INJ PRN (07:50)
--- NOTE | 2023-12-30 08:03 | NUR ---
PER TAO - PLANNING FOR REVASCULARIZATION TO BE DONE BETWEEN 9:30AM AND 10:30. REQUESTING TO HOLD DIALYSIS UNTIL AFTER PROCEDURE. [facility] IN [facility] NOTIFIED.
--- NOTE | 2023-12-30 09:58 | NUR ---
PLANNED FOR 2 HOUR HEMODIALYSIS SESSION THIS MORNING APPROX 0730AM COMMUNICATED WITH BEDSIDE RN ABOUT PLANS TO TREAT PT THIS MORNING. WAS INFORMED THAT PT MOUNA WILL HAVE A SURGICAL PROCEDURE LATER TODAY BUT NO TENATIVE PLAN. MACHINES WERE SET UP FOR PATIENT. WAS NOTIFIED AT APPROX 0830AM THAT PT WOULD NOT BE ABLE TO COME DUE TO ANOTHER PROCEDURE PLANNED FOR AROUND 9AM. PT HAD HER LAST DIALYSIS TREATMENT YESTERDAY. WE WILL PLAN TO GO AHEAD AND BRING HER IN FOR A TREATMENT IN THE MORNING TOMORROW.
[2023-12-30] MEDS ORDERED: Vancomycin HCL 1,000 MG in NS 250 ML IV ONE (11:15)
[2023-12-30] MEDS ORDERED: NS 100 ML IV ONE (11:16)
[2023-12-30] MEDS ORDERED: Nitroglycerin 2 MG/20 ML BTL ONE (11:16)
[2023-12-30] MEDS ORDERED: Heparin Sodium 1000 Units/ML 10ML MDV ONE ×2 (11:16→12:50)
[2023-12-30] MEDS ORDERED: NS 1,000 ML IV ONE ×2 (11:16→11:37)
[2023-12-30] MEDS ORDERED: NS 250 ML IV ONE (11:16)
[2023-12-30] MEDS ORDERED: FentaNYL Citrate 50 MCG/ML 2 ML Injection ONE ×3 (11:37→13:54)
[2023-12-30] MEDS ORDERED: Midazolam HCl 1MG / ML 2ML Vial ONE ×3 (11:37→13:54)
[2023-12-30] MEDS ORDERED: Ketorolac Tromethamine 30mg Vial ONE (13:09)
--- NOTE | 2023-12-30 14:47 | NUR ---
BEDSIDE REPORT GIVEN TO SABINO RN. PATIENT TOLERATED PROCEDURE WELL ON MODERATE SEDATION. VSS. L GROIN ANGIO SEAL IN PLACE. SITE C/D/I
--- NOTE | 2023-12-30 15:14 | NUR ---
CALL FROM HARSHAD IN PCU TO GET REPORT ON PATIENT SHE WILL BE TRANSFERRING TO PCU FOLLOWING HER VASCULAR PROCEDURE.
--- NOTE | 2023-12-30 15:24 | NUR ---
UPDATE CALLED DESHAWN TO UPDATE HIM ABOUT PT NOT GETTING DIALYSIS THIS AM. PLAN TO RUN DIALYSIS IN THE AM.
[2023-12-30] MEDS ORDERED: Dextrose 50% 50 ML Syringe ONE (15:34)
[2023-12-30] MEDS ORDERED: Dextrose 50% 50 ML Syringe IV ONE (15:40)
--- NOTE | 2023-12-30 16:44 | NUR ---
ARRIVAL TO UNIT: PATIENT ARRIVED TO UNIT WITH CHART. PT AROUSABLE, AND ON 2LITERS VIA NASAL CANNULA. FEMORAL LEFT LEG SITE CHECKED AND PATENT WITH NO HEMATOMA,BLEEDING OR BRUISING. PT NOTIFIED THAT SHE WILL LAY FLAT FOR 2HRS AND SLOWLY BE ELEVATED. VITAL SIGNS STARTED SEQUENCING. BLOOD PRESSURE READINGS LOW. BLOOD SUGAR CHECKED UPON ARRIVAL AND READING WAS 33. A CALL WAS PLACED TO AND ASKED TO GET AN ORDER OF DEXTROSE FOR BLOOD SUGAR COVERAGE AND UPDATE ABOUT LOW BLOOD PRESSURE READING. MIDODRINE AND AN AMPULE OF DEXTROSE WAS GIVEN.
--- NOTE | 2023-12-30 16:50 | NUR ---
CALL PLACED TO : PLACED A CALL TO NOTIFY OF CRITICALLY LOW BLOD SUGAR OF 33 AND LOW BLOOD PRESSURE WITH A MAP OF (66). ORDERED AN AMPULE OF DEXTROSE & MIDODRINE TO BE GIVEN.
--- NOTE | 2023-12-30 16:57 | NUR ---
PATIENT TEMPERATURE LOW, A RECTAL TEMP PROBE WAS INSERTED AND HYPOTHERMIA ORDERS/PROTOCOL WERE STRATED.
--- NOTE | 2023-12-30 17:22 | NUR ---
END OF SHIFT SUMMARY: PATIENT ARRIVED TO UNIT AROUND 15:35 WITH CHART, MED FLOOR RN BROUGHT DOWN BELONGINGS SHORTLY AFTER. ON 2 LITERS VIA NASAL CANNULA, ON TELE SHOWING SINUS WITH A 1ST DEGREE AV BLOCK WITH RATE IN 70'S. HAS A PROLONGED QTC AT 0.52. SATTING >92% ON 2 LITERS ON NASAL CANNULA, HAS CPAP AT 7 AND WEARS IT WITHOUT PROBLEMS. NO HEMATOMA, BLEEDING OR BRUISING AT LEFT LEG SITE FOR RIGHT LEG REVASCULARIZATION. BLOOD PRESSURE AND GLUCOSE WAS LOW WHEN ARRIVING, GIVEN MIDODRINE AND AN AMPULE OF DEXTROSE PER EMAR. TEMPERATURE WAS LOW AND HYPOTHERMIC PROTOCOL WAS INITIATED. RECTAL PROBE WAS INSERTED, BEAR HUGGER WAS PLACED. PER REPORT IV VANCOMYCIN WAS HELD DUE TO PROCEDURE, PHARMACIST RECOMMENDED TO GIVE IT ANYWAYS SO IT WAS STARTED. WILL NOTIFY ONCOMING FIELD SERVICE SPECIALIST RN.
[2023-12-31] VITALS (15 sets, daily range): BP systolic 118–144; BP diastolic 46–74
[2023-12-31 04:20] LABS: BASOPHILS ABSOLUTE AUTO 0.04 K/mm3 (0.00-0.23); BASOPHILS PERCENT AUTO 1 % (0-2); EOSINOPHILS ABSOLUTE AUTO 0.29 K/mm3 (0.00-0.68); EOSINOPHILS PERCENT AUTO 4 % (0-6); Hematocrit 26.2 % (33.0-51.0); Hemoglobin 7.8 g/dL (11.5-16.0); IMMATURE GRAN ABSOLUTE AUTO 0.04 K/mm3 (0.00-0.10); IMMATURE GRAN PERCENT AUTO 1 % (0-1); LYMPHOCYTES ABSOLUTE AUTO 0.52 K/mm3 (0.84-5.20); LYMPHOCYTES PERCENT AUTO 6 % (21-46); MONOCYTES ABSOLUTE AUTO 0.45 K/mm3 (0.16-1.47); MONOCYTES PERCENT AUTO 6 % (4-13); Mean Corpuscular HGB 27.7 pg (26.0-34.0); Mean Corpuscular HGB Conc 29.8 g/dL (31.5-36.5); Mean Corpuscular Volume 93 fL (80-100); Mean Platelet Volume 10.1 fL (9.1-12.4); NEUTROPHILS ABSOLUTE AUTO 6.75 K/mm3 (1.96-9.15); NEUTROPHILS PERCENT AUTO 83 % (41-73); Platelet Count 307 K/mm3 (150-400); RDW Coefficient Variation 15.6 % (11.7-14.2); RDW Standard Deviation 53.3 fL (35.1-46.3); Red Blood Cell Count 2.82 M/mm3 (3.80-5.20); White Blood Cell Count 8.09 K/mm3 (4.00-11.30)
[2023-12-31 04:38] LABS: Albumin, Blood 2.1 g/dL (3.4-5.0); Anion Gap 16 mmol/L (3-11); Blood Urea Nitrogen 54 mg/dL (8-24); CO2, Blood 25 mmol/L (21-32); Calcium, Blood 8.8 mg/dL (8.5-10.1); Chloride, Blood 99 mmol/L (98-108); Creatinine, Blood 6.01 mg/dL (0.40-1.00); Glomerular Filtration Rate 8 (60-); Glucose, Blood 176 mg/dL (70-99); Magnesium, Blood 2.6 mg/dL (1.6-2.4); Phosphorus, Blood 5.9 mg/dL (2.5-4.9); Potassium, Blood 4.7 mmol/L (3.5-5.5); Sodium, Blood 135 mmol/L (136-145)
--- NOTE | 2023-12-31 06:49 | NUR ---
SHIFT SUMMARY PATIENT ALERT AND ORIENTED X4. MEDICATED PER EMAR FOR PAIN. PATIENT DENIED ANY SHORTNESS OF BREATH. CURRENTLY ON 2 LITERS O2 VIA NC WITH SPO2 >90%. VITAL SIGNS STABILIZED. NO ACUTE ISSUES NOTED OVERNIGHT. WILL CONTINUE TO MONITOR. CALL LIGHT WITHIN REACH.
[2023-12-31] MEDS ORDERED: Anticoagulant Sod Citrate Soln 3 ML SYR INJ PRN (07:40)
--- NOTE | 2023-12-31 16:31 | NUR ---
SHIFT NOTE: PT A/OX4 ABLE TO USE THE CALL LIGHT TO MAKE NEEDS KNOWN. SHE IS ON TELE IN SINUS. DENIES CHEST PAIN/PRESSURE. DR. MUNOZ CALLED FOR ORTHO CONSULT REGARDING RIGHT BKA/AKA. PT HAS NO FEELING IN RIGHT FOOT. PULSES NOT PALPABLE, CAP REFILL >3 SECONDS. PT HAS NO FEELING IN LEFT FOOT BUT CAN MOVE IT. PULSES FAINT. CAP REFIL >3 SECONDS. PT REPORTS CONCERN ABOUT NECROTIC LOOKING TISSUE ON LEFT FOOT ASKING "IS IT GOING TO BE LIKE THE RIGHT FOOT?" THIS RN EDUCATED PT THAT QUESTIONS WOULD BE ADDRESSED WHEN DR. MUNOZ ASSESSES THE LIMBS. THE PATIENT HAS SCABS SCATTERED THROUGHOUT HER WHOLE BODY. PT CONTIUOUSLY PICKS AND THEN THEY BLEED. THIS RN WRAPPED LEFT ARM WITH GAUZE. PT EDUCATED ON NEED TO STOP PICKING AT SORES. SHE IS ON RA FROM 2LNC. HER SPO2>90% AND SHE DENIES SOB. SHE HAS NOT HAD A BM THIS SHIFT. SHE HAD DILAYSIS THIS AM. PT REPORTS BEING VERY SLEEPY AFTERWARDS. SHE HAS REQUESTED PAIN MEDS Q4. SEE EMAR FOR ADMINISTRATION DETAILS. SHE HAS DECLINED Q2 REPOSITIONING. CALL LIGHT IN REACH, BED IN LOWEST POSITION. WILL CONTINUE TO MONITOR AND REPORT TO ONCOMING RN.
[2023-12-31] MEDS ORDERED: Insulin Glargine-Yfgn 100 Unit/mL 3 ML SYR SC SCH (21:00)
[2023-12-31] MEDS ORDERED: Insulin Glargine-Yfgn 100 Unit/mL 3 ML SYR SC ONE (22:00)
[2024-01-01] VITALS (16 sets, daily range): BP systolic 86–129; BP diastolic 41–93
--- NOTE | 2024-01-01 05:39 | NUR ---
SHIFT SUMMARY. PATIENT IS A&OX4. PATIENT HAD BEDBATH AND CHLORHEXINE BATH COMPLETED. PATIENT COOPERATIVE WITH CARE. PATIENT HAS MULTIPLE SCABS SCATTERED T/O BODY-PATIENT PICKS AT SCABS CAUSING BLEEDING-COMPLETE BED CHANGE DONE WITH CHLORHEXINE BATH. PATIENT C/O PAIN-MEDICATED X2 FROM THIS RN. PATIENT RESTING OFF AND ON T/O SHIFT WITH RESPIRATIONS EQUAL AND UNLABORED-PATIENT HAS SOB WITH EXERTION. PLAN PER REPORT IS PATIENT TO HAVE AKA 01/01/24. PATIENT HAS FOOD AND DRINKS IN HER ROOM IN A BAG-PATIENT IS NPO AND REORIENTED TO NEED FOR NPO. BED IS LOCKED IN THE LOWEST POSITION WITH CALL LIGHT IN REACH. CARE IS ONGOING.
[2024-01-01 05:56] LABS: BASOPHILS ABSOLUTE AUTO 0.04 K/mm3 (0.00-0.23); BASOPHILS PERCENT AUTO 1 % (0-2); EOSINOPHILS ABSOLUTE AUTO 0.28 K/mm3 (0.00-0.68); EOSINOPHILS PERCENT AUTO 5 % (0-6); Hematocrit 24.2 % (33.0-51.0); Hemoglobin 7.3 g/dL (11.5-16.0); IMMATURE GRAN ABSOLUTE AUTO 0.03 K/mm3 (0.00-0.10); IMMATURE GRAN PERCENT AUTO 1 % (0-1); LYMPHOCYTES ABSOLUTE AUTO 0.48 K/mm3 (0.84-5.20); LYMPHOCYTES PERCENT AUTO 8 % (21-46); MONOCYTES ABSOLUTE AUTO 0.32 K/mm3 (0.16-1.47); MONOCYTES PERCENT AUTO 6 % (4-13); Mean Corpuscular HGB 27.8 pg (26.0-34.0); Mean Corpuscular HGB Conc 30.2 g/dL (31.5-36.5); Mean Corpuscular Volume 92 fL (80-100); Mean Platelet Volume 10.2 fL (9.1-12.4); NEUTROPHILS ABSOLUTE AUTO 4.61 K/mm3 (1.96-9.15); NEUTROPHILS PERCENT AUTO 80 % (41-73); Platelet Count 266 K/mm3 (150-400); RDW Coefficient Variation 15.8 % (11.7-14.2); RDW Standard Deviation 53.1 fL (35.1-46.3); Red Blood Cell Count 2.63 M/mm3 (3.80-5.20); White Blood Cell Count 5.76 K/mm3 (4.00-11.30)
[2024-01-01 06:20] LABS: Anion Gap 16 mmol/L (3-11); Blood Urea Nitrogen 49 mg/dL (8-24); Bun/Creatinine Ratio 8.9 (12.0-20.0); CO2, Blood 24 mmol/L (21-32); Calcium, Blood 8.7 mg/dL (8.5-10.1); Chloride, Blood 97 mmol/L (98-108); Creatinine, Blood 5.49 mg/dL (0.40-1.00); Glomerular Filtration Rate 9 (60-); Glucose, Blood 395 mg/dL (70-99); Phosphorus, Blood 5.1 mg/dL (2.5-4.9); Potassium, Blood 4.2 mmol/L (3.5-5.5); Sodium, Blood 133 mmol/L (136-145); Vancomycin, Random 22.8 ug/mL
[2024-01-01] MEDS ORDERED: Insulin Human Lispro 100 Units/ML 3ML Syringe SC SCH ×2 (08:00→16:30)
[2024-01-01] MEDS ORDERED: NS 1,000 ML IV SCH (11:00)
--- NOTE | 2024-01-01 11:23 | NUR ---
PT HAS 20G IV TO RIGHT WRIST THAT FLUSHES WELL AND FLOWS TO GRAVITY.
[2024-01-01] MEDS ORDERED: Tranexamic Acid 100 ML IV SCH (11:25)
--- NOTE | 2024-01-01 11:37 | NUR ---
PT BROUGHT FROM FLOOR TO DAY SURGERY FOR PROCEDURE. History, Chart, Medications and Allergies reviewed before start of procedure. Lungs clear T/O to Auscultation. Patient confirms NPO status and agrees with scheduled surgery. Pre-Op teaching done. Pt verbalizes understanding. PT BELONGINGS LEFT IN PERSONAL ROOM ON MEDICAL FLOOR. PT HAS JEWELRY ON BOTH HANDS AND A NECKLACE THAT CANNOT BE REMOVED. JEWELRY TAPED, JEWELRY CONSENT SIGNED, OR TEAM NOTIFIED.
[2024-01-01] MEDS ORDERED: Bupivacaine 0.5% HCl 5 MG/ML 30MLVIAL ONE (11:54)
[2024-01-01] MEDS ORDERED: FentaNYL Citrate 50 MCG/ML 2 ML Injection ONE (11:56)
[2024-01-01] MEDS ORDERED: propofoL 20 ML IV ONE (11:56)
--- NOTE | 2024-01-01 12:52 | NUR ---
01/01/24 1252 Jewell Martinez PATIENT ON SCHEDULED ANTIBIOTICS.
--- NOTE | 2024-01-01 13:08 | NUR ---
ATTEMPT X 2 TO CALL REPORT ON THIS PATIENT. NURSE NOT AVAILABLE. MESSAGE LEFT WITH LIGHT TECHNICIAN GLORIA FOR RN TO CALL FOR REPORT WHEN SHE IS READY. DOUGH CUTTING MACHINE OPERATOR SHANIA DOLAN NOTIFIED OF DELAY IN REPORT.
[2024-01-01] MEDS ORDERED: Phenylephrine HCl 100 MCG/ML-NS 10MLSYR (1MG/10ML) ONE (13:37)
[2024-01-01] MEDS ORDERED: Ondansetron HCl 2 MG / ML 2ML Vial ONE (13:49)
--- NOTE | 2024-01-01 16:50 | NUR ---
POST OP: REPORT RECEIVED FROM LILA CAMPOS RN, AND RAINBOW TROUT FARM MANAGER NADIRA. PT TO UNIT AT ABOUT 1550. PT IS DROWSY, AWAKENS TO VOICE. VSS, SP02 STABLE ON 2L NC. PT MOVED FROM OR BED TO UNIT BED WITH CEILING LIFT. TELE BOX AND PT VERIFIED BY DALLIN ANGUIANO. SURGICAL SITE IS WNL, CDI. L LEG ELEVATED ON PILLOWS. PT GIVEN PAIN MEDICATION PER EMAR AND GIVEN CALL LIGHT, ORIENTED TO ROOM. PT FAMILY AT BEDSIDE, PT IS ABLE TO MAKE NEEDS KNOWN.
[2024-01-01] MEDS ORDERED: Insulin Glargine-Yfgn 100 Unit/mL 3 ML SYR SC SCH (21:00)
[2024-01-02] VITALS (22 sets, daily range): BP systolic 102–146; BP diastolic 39–83
--- NOTE | 2024-01-02 05:01 | NUR ---
SHIFT SUMMARY PT POD O RIGHT AKA. PT HAS HAD INTERMITTENT PAIN RELEIVED WITH MEDS PER EMAR. PT WAS MOVING AROUND IN BED AND INADVERTENTLY REMOVED HER ENTIRE DRESSING. DRESSING REPLACED BY THIS RN AND HELP OF JUMP ROLL OPERATOR. LIGHT DRAINAGE VERY SURGICAL SITE THIS SHIFT. PT VOIDING AND TOLERATING PO INTAKE. VITALS STABLE. NO ACUTE CHANGES OVERNIGHT. BED IN LOWEST POSITION, CALL LIGHT WITHIN REACH.
[2024-01-02 05:07] LABS: BASOPHILS ABSOLUTE AUTO 0.04 K/mm3 (0.00-0.23); BASOPHILS PERCENT AUTO 1 % (0-2); EOSINOPHILS PERCENT AUTO 5 % (0-6); Hematocrit 19.8 % (33.0-51.0); IMMATURE GRAN ABSOLUTE AUTO 0.06 K/mm3 (0.00-0.10); IMMATURE GRAN PERCENT AUTO 1 % (0-1); LYMPHOCYTES ABSOLUTE AUTO 0.52 K/mm3 (0.84-5.20); LYMPHOCYTES PERCENT AUTO 8 % (21-46); MONOCYTES ABSOLUTE AUTO 0.32 K/mm3 (0.16-1.47); MONOCYTES PERCENT AUTO 5 % (4-13); Mean Corpuscular HGB 28.2 pg (26.0-34.0); Mean Corpuscular HGB Conc 29.8 g/dL (31.5-36.5); Mean Corpuscular Volume 95 fL (80-100); Mean Platelet Volume 10.5 fL (9.1-12.4); NEUTROPHILS ABSOLUTE AUTO 5.14 K/mm3 (1.96-9.15); NEUTROPHILS PERCENT AUTO 81 % (41-73); Platelet Count 264 K/mm3 (150-400); RDW Coefficient Variation 15.6 % (11.7-14.2); RDW Standard Deviation 53.9 fL (35.1-46.3); Red Blood Cell Count 2.09 M/mm3 (3.80-5.20); White Blood Cell Count 6.38 K/mm3 (4.00-11.30)
[2024-01-02 05:22] LABS: Hemoglobin 5.9 g/dL (11.5-16.0)
--- NOTE | 2024-01-02 05:34 | NUR ---
HGB PT HGB 5.9 WITH AM LABS DOWN FROM 7.3. PT HAS HAD MINIMAL BLEEDING FROM SURGICAL SITE. NO SIGNS OF BLEEDING ANYWHERE ELSE. DR. HESS CALLED AND NOTIFIED OF PT HGB, 3 UNITS OF PRBC'S TO BE GIVEN WITH DIALYSIS. NURSING MANUFACTURING MAINTENANCE MECHANIC NOTIFIED. TELECOMMUNICATOR SUPERVISOR CALLED AND NOTIFIED, AND PT TO BEGIN DIALYSIS THIS AM AFTER 6.
[2024-01-02 05:37] LABS: Albumin, Blood 2.1 g/dL (3.4-5.0); Anion Gap 16 mmol/L (3-11); Blood Urea Nitrogen 59 mg/dL (8-24); Bun/Creatinine Ratio 8.9 (12.0-20.0); CO2, Blood 24 mmol/L (21-32); Calcium, Blood 8.2 mg/dL (8.5-10.1); Chloride, Blood 98 mmol/L (98-108); Creatinine, Blood 6.64 mg/dL (0.40-1.00); Glomerular Filtration Rate 7 (60-); Glucose, Blood 405 mg/dL (70-99); Magnesium, Blood 2.3 mg/dL (1.6-2.4); Potassium, Blood 4.7 mmol/L (3.5-5.5); Sodium, Blood 133 mmol/L (136-145)
[2024-01-02 07:40] LABS: Vancomycin, Random 18.7 ug/mL
[2024-01-02] MEDS ORDERED: HYDROmorphone HCl 4 MG Tab PO PRN (09:50)
[2024-01-02] MEDS ORDERED: Insulin Regular 100 UNIT/ML 10ML Vial SC SCH (11:30)
[2024-01-02] MEDS ORDERED: Vancomycin HCL 1,000 MG in NS 250 ML IV ONE (13:00)
[2024-01-02] MEDS ORDERED: Insulin Human Lispro 100 Units/ML 3ML Syringe SC SCH (16:30)
[2024-01-02] MEDS ORDERED: HYDROmorphone HCl 2 MG Tab PO PRN (17:05)
--- NOTE | 2024-01-02 17:29 | NUR ---
SUMMARY PT RECEIVED DIAYLISIS THIS AM. PT PAINFUL, MEDICATED PER ORDERS T/O DAY. DRESSING TO R AKA CDI. PT DID NOT VOID, DISCUSSED WITH DR HERMAN. CALL LIGHT IN REACH.
[2024-01-02] MEDS ORDERED: Morphine Sulfate 30 MG TabCR PO SCH (18:00)
[2024-01-02] MEDS ORDERED: Insulin Glargine-Yfgn 100 Unit/mL 3 ML SYR SC SCH (18:00)
[2024-01-03 04:15] VITALS: BP 138/96
[2024-01-03 04:55] LABS: BASOPHILS ABSOLUTE AUTO 0.04 K/mm3 (0.00-0.23); BASOPHILS PERCENT AUTO 1 % (0-2); EOSINOPHILS ABSOLUTE AUTO 0.25 K/mm3 (0.00-0.68); EOSINOPHILS PERCENT AUTO 5 % (0-6); Hemoglobin 8.3 g/dL (11.5-16.0); IMMATURE GRAN ABSOLUTE AUTO 0.03 K/mm3 (0.00-0.10); IMMATURE GRAN PERCENT AUTO 1 % (0-1); LYMPHOCYTES ABSOLUTE AUTO 0.51 K/mm3 (0.84-5.20); LYMPHOCYTES PERCENT AUTO 9 % (21-46); MONOCYTES ABSOLUTE AUTO 0.42 K/mm3 (0.16-1.47); MONOCYTES PERCENT AUTO 8 % (4-13); Mean Corpuscular HGB 28.6 pg (26.0-34.0); Mean Corpuscular HGB Conc 31.9 g/dL (31.5-36.5); Mean Platelet Volume 10.1 fL (9.1-12.4); NEUTROPHILS ABSOLUTE AUTO 4.19 K/mm3 (1.96-9.15); NEUTROPHILS PERCENT AUTO 77 % (41-73); Platelet Count 226 K/mm3 (150-400); RDW Coefficient Variation 15.2 % (11.7-14.2); RDW Standard Deviation 49.2 fL (35.1-46.3); White Blood Cell Count 5.44 K/mm3 (4.00-11.30)
[2024-01-03 04:57] LABS: Mean Corpuscular Volume 90 fL (80-100)
[2024-01-03 05:14] LABS: Magnesium, Blood 2.2 mg/dL (1.6-2.4)
[2024-01-03 05:39] LABS: Albumin, Blood 2.2 g/dL (3.4-5.0); Albumin/Globulin Ratio 0.5 (0.8-1.8); Bilirubin, Total 0.4 mg/dL (0.1-1.0); Bun/Creatinine Ratio 7.6 (12.0-20.0); Calcium, Blood 8.8 mg/dL (8.5-10.1); Creatinine, Blood 4.37 mg/dL (0.40-1.00); Globulin, Blood 4.4 g/dL (2.2-4.0); Phosphorus, Blood 3.4 mg/dL (2.5-4.9); Potassium, Blood 3.6 mmol/L (3.5-5.5); Total Protein, Blood 6.6 g/dL (6.4-8.2)
[2024-01-03 07:31] VITALS: BP 128/73
--- NOTE | 2024-01-03 07:34 | NUR ---
CRITICAL LOW CBG CBG THIS AM 48. PT ALERT AND ORIENTED. SNACKS PROVIDED. DR HERMAN NOTIFIED. CALL LIGHT IN PT'S REACH.
--- NOTE | 2024-01-03 08:43 | NUR ---
DR HESS IN TO SEE PT.
--- NOTE | 2024-01-03 10:53 | NUR ---
OFFERED PATIENT BATH AND GOWN CHANGE.PATIENT STATED," MAYBE AFTER LUNCH."
[2024-01-03] MEDS ORDERED: Gabapentin 300 MG Cap PO SCH (12:00)
[2024-01-03 14:56] VITALS: BP 132/50
--- NOTE | 2024-01-03 17:08 | NUR ---
SUMMARY NO ACUTE CHANGES T/O SHIFT. NO DIALYSIS TODAY. PT HAD INCONTINENT VOID AND A BM THIS AFTERNOON. BATHED AND LINENS CHANGED BY TOOL GRINDER OPERATOR EXTERNAL. PT MEDICATED T/O DAY FOR PAIN PER ORDERS. PT SLEPT OFF AND ON FOR BRIEF PERIODS OF TIME, STATING DID NOT SLEEP WELL LAST NIGHT. DRESSING TO RLE CDI. CALL LIGHT IN REACH.
[2024-01-03] MEDS ORDERED: HYDROmorphone HCl 2 MG Tab PO PRN (17:30)
[2024-01-03] MEDS ORDERED: Insulin Glargine-Yfgn 100 Unit/mL 3 ML SYR SC SCH (18:00)
[2024-01-03 19:44] VITALS: BP 113/78
[2024-01-04] VITALS (21 sets, daily range): BP systolic 100–158; BP diastolic 30–72
[2024-01-04 04:10] LABS: Hematocrit 26.8 % (33.0-51.0); Hemoglobin 8.4 g/dL (11.5-16.0)
--- NOTE | 2024-01-04 04:17 | NUR ---
TELEMETRY NOTE DENTAL ASSISTANT TEACHER CALLED THIS RN AT 0405, INFORMED OF 15 BEAT RUN OF VT. PT ASYMPTOMATIC. PROCUREMENT ANALYST MADE AWARE.
[2024-01-04 04:30] LABS: Albumin, Blood 2.3 g/dL (3.4-5.0); Anion Gap 14 mmol/L (3-11); Blood Urea Nitrogen 41 mg/dL (8-24); Bun/Creatinine Ratio 7.2 (12.0-20.0); CO2, Blood 27 mmol/L (21-32); Calcium, Blood 8.9 mg/dL (8.5-10.1); Chloride, Blood 96 mmol/L (98-108); Creatinine, Blood 5.72 mg/dL (0.40-1.00); Glomerular Filtration Rate 8 (60-); Glucose, Blood 234 mg/dL (70-99); Magnesium, Blood 2.4 mg/dL (1.6-2.4); Phosphorus, Blood 4.6 mg/dL (2.5-4.9); Potassium, Blood 4.1 mmol/L (3.5-5.5); Sodium, Blood 133 mmol/L (136-145)
--- NOTE | 2024-01-04 04:58 | NUR ---
SHIFT SUMMARY POD4 R AKA. PAIN MANAGED UTILIZING NPIS AND PER EMAR. REQUESTING DILAUDID Q3H, REPORTS PAIN 8/10, BOTH AT SURG SITE AND CHRONIC BACK PAIN. PRN BENEDRYL FOR ITCHING. 2PA FREQUENT REPOSITION. LIFT TRANSFER. SEE 0400 TELE NOTE. PT VOICED UNDERSTANDING OF PLAN OF CARE, DENIES QUESTIONS/CONCERNS AT THIS TIME.
[2024-01-04] MEDS ORDERED: Anticoagulant Sod Citrate Soln 3 ML SYR INJ PRN (07:55)
--- NOTE | 2024-01-04 08:41 | NUR ---
PT TAKEN TO DIALYSIS VIA HOSPITAL BED. PT TOLERATED WELL. VSS, 2L NC.
[2024-01-04] MEDS ORDERED: Alteplase Recombinant 2 MG / Vial IV PRN (09:00)
--- NOTE | 2024-01-04 12:16 | NUR ---
PT BROUGHT BACK TO ROOM FROM DIALYSIS VIA HOSPITAL BED. PT TOLERATED WELL. VSS. 2LNC. PAIN MANAGED PER EMAR. DENIES N/V.
[2024-01-04] MEDS ORDERED: HYDMOR4 PO (13:06)
[2024-01-04] MEDS ORDERED: GABA300 PO (13:07)
[2024-01-04] MEDS ORDERED: FURO80 PO (13:07)
[2024-01-04] MEDS ORDERED: VISBIOME 112.51 EACH PO (13:08)
--- NOTE | 2024-01-04 16:20 | NUR ---
Discharge Note: POD 3 RIGHT AKA. PT MANAGING PAIN WITH ORAL MEDICATIONS PER EMAR. VSS. DRESSING C/D/I. DISCHARGE TEACHING COMPLETED AND PATIENT VERBALLY EXPRESSED UNDERSTANDING. WHEELED OUT TO RIDE VIA WHEELCHAIR.
== END 2024-01-04 16:50 | disposition home health service (06) | DRG 239 ==
LOC: ER 21:08 → SURS 12-29 01:24 → MEDS 12-29 01:24 → PCU 12-30 14:46 → MEDS 12-31 07:33 → SURS 01-01 14:00
PROVIDERS: Family Medicine; Internal Medicine Nephrology; Orthopaedic Surgery; Student in an Organized Health Care Education/Training Program; ADMIT Student in an Organized Health Care Education/Training Program
PROC: 5A1D70Z Performance of Urinary Filtration, Intermittent, Less than 6 Hours Per Day (ICD-10-PCS; 2024-01-01)
PROC: 0Y6C0Z3 Detachment at Right Upper Leg, Low, Open Approach (ICD-10-PCS; principal; 2024-01-01 11:00)
PROC: 30233N1 Transfusion of Nonautologous Red Blood Cells into Peripheral Vein, Percutaneous Approach (ICD-10-PCS; 2024-01-02)
DX: E11.52 Type 2 diabetes mellitus with diabetic peripheral angiopathy with gangrene (principal); N18.6 End stage renal disease; I96 Gangrene, not elsewhere classified; N25.81 Secondary hyperparathyroidism of renal origin; I13.2 Hypertensive heart and chronic kidney disease with heart failure and with stage 5 chronic kidney disease, or end stage renal disease; Z68.41 Body mass index [BMI] 40.0-44.9, adult; E87.1 Hypo-osmolality and hyponatremia; D63.1 Anemia in chronic kidney disease; E11.42 Type 2 diabetes mellitus with diabetic polyneuropathy; G47.33 Obstructive sleep apnea (adult) (pediatric); E78.5 Hyperlipidemia, unspecified; F41.8 Other specified anxiety disorders; E03.9 Hypothyroidism, unspecified; G47.00 Insomnia, unspecified; G89.4 Chronic pain syndrome; M19.90 Unspecified osteoarthritis, unspecified site; F17.210 Nicotine dependence, cigarettes, uncomplicated; E11.621 Type 2 diabetes mellitus with foot ulcer; L97.519 Non-pressure chronic ulcer of other part of right foot with unspecified severity; I50.9 Heart failure, unspecified; E87.6 Hypokalemia; I45.4 Nonspecific intraventricular block; E66.01 Morbid (severe) obesity due to excess calories; F32.9 Major depressive disorder, single episode, unspecified; Z99.2 Dependence on renal dialysis; Z86.14 Personal history of Methicillin resistant Staphylococcus aureus infection; Z90.710 Acquired absence of both cervix and uterus; Z98.890 Other specified postprocedural states; Z99.89 Dependence on other enabling machines and devices; Z88.0 Allergy status to penicillin; Z88.8 Allergy status to other drugs, medicaments and biological substances; Z79.4 Long term (current) use of insulin; Z79.890 Hormone replacement therapy; Z79.899 Other long term (current) drug therapy
CPT/HCPCS: 36415; 36430; 73630; 76937; 80053; 80069; 80202; 82947; 83605; 83735; 84100; 85014; 85018; 85025; 85347; 85651; 86140; 86850; 86900; 86901; 86923; 87040; 87070; 87077; 87186; 87205; 88307; 88311; 93926; 94640; 94660; 94664; 94762; 96365; 96375; 97110; 97161; 99152; 99153; 99285-25; A9270; C1725; C1760; C1769; C1887; C1894; J0692; J0881; J1170; J1644; J1815; J1885; J2250; J2371; J2405; J2704; J2997; J3010; J3370; J7030; J7040; J7050; P9016; Q9967

== ENCOUNTER 2024-02-02 14:33 | Inpatient (IN) | payer MEDICARE, OTHER ==
[~2024-02-02] VITALS: Ht 182.9 cm; Wt 138.0 kg
[~2024-02-02 14:33] MED LIST changes: +1/2 NS 250ml250 ML; +HYDMOR4 PO
[2024-02-02 15:09] LABS: BASOPHILS ABSOLUTE AUTO 0.05 K/mm3 (0.00-0.23); BASOPHILS PERCENT AUTO 1 % (0-2); EOSINOPHILS PERCENT AUTO 9 % (0-6); Hematocrit 35.3 % (33.0-51.0); IMMATURE GRAN ABSOLUTE AUTO 0.02 K/mm3 (0.00-0.10); IMMATURE GRAN PERCENT AUTO 0 % (0-1); LYMPHOCYTES ABSOLUTE AUTO 0.63 K/mm3 (0.84-5.20); LYMPHOCYTES PERCENT AUTO 11 % (21-46); MONOCYTES PERCENT AUTO 5 % (4-13); Mean Corpuscular HGB 28.1 pg (26.0-34.0); Mean Corpuscular HGB Conc 31.2 g/dL (31.5-36.5); Mean Corpuscular Volume 90 fL (80-100); Mean Platelet Volume 10.7 fL (9.1-12.4); NEUTROPHILS ABSOLUTE AUTO 4.37 K/mm3 (1.96-9.15); NEUTROPHILS PERCENT AUTO 75 % (41-73); Platelet Count 221 K/mm3 (150-400); RDW Standard Deviation 50.1 fL (35.1-46.3); Red Blood Cell Count 3.92 M/mm3 (3.80-5.20); White Blood Cell Count 5.87 K/mm3 (4.00-11.30)
[2024-02-02 15:36] LABS: Albumin, Blood 2.7 g/dL (3.4-5.0); Albumin/Globulin Ratio 0.6 (0.8-1.8); Bilirubin, Total 0.3 mg/dL (0.1-1.0); Bun/Creatinine Ratio 9.7 (12.0-20.0); Calcium, Blood 10.6 mg/dL (8.5-10.1); Creatinine, Blood 7.63 mg/dL (0.40-1.00); Globulin, Blood 4.2 g/dL (2.2-4.0); Potassium, Blood 4.7 mmol/L (3.5-5.5); Total Protein, Blood 6.9 g/dL (6.4-8.2)
[2024-02-02] MEDS ORDERED: HYDROmorphone HCl/Pf 1MG SYR IV ONE (16:10)
[2024-02-02] MEDS ORDERED: Vancomycin HCL 2,000 MG in NS 520 ML IV ONE (16:15)
[2024-02-02] MEDS ORDERED: Ondansetron HCl 2 MG / ML 2ML Vial IV PRN (17:35)
[2024-02-02] MEDS ORDERED: FLU VACC TS2024-25(6MOS UP)/PF 45 MCG/0.5 ML SYRINGE IM SCH (17:35)
[2024-02-02] MEDS ORDERED: HYDROmorphone HCl/Pf 1MG SYR IV PRN (17:35)
[2024-02-02] MEDS ORDERED: Albuterol 2.5 MG/3 ML VIAL INH PRN (17:40)
[2024-02-02] MEDS ORDERED: Mometasone/Formoterol MDI 100/5 mcg 13 GM INH SCH (17:55)
[2024-02-02] MEDS ORDERED: Midodrine 5 MG Tab PO SCH (18:00)
[2024-02-02] MEDS ORDERED: Insulin Human Lispro 100 Units/ML 3ML Syringe SC SCH (18:00)
[2024-02-02] MEDS ORDERED: Cefepime HCl 1,000 MG in NS 100 ML IV SCH (18:00)
[2024-02-02] MEDS ORDERED: Insulin Glargine-Yfgn 100 Unit/mL 3 ML SYR SC SCH (21:00)
[2024-02-02] MEDS ORDERED: BusPIRone HCl 10 MG Tab PO SCH (21:00)
[2024-02-02] MEDS ORDERED: Lactobacil 2-S.Thermo-Bifido 1 1 Cap PO SCH (21:00)
[2024-02-02] MEDS ORDERED: SEVEC800 PO (21:07)
[2024-02-02] MEDS ORDERED: BANOPHEN25 MG PO (21:22)
[2024-02-02] MEDS ORDERED: DiphenhydrAMINE HCl 50 MG Cap PO PRN (22:30)
[2024-02-02 22:46] VITALS: BP 126/59
[2024-02-03] VITALS (30 sets, daily range): BP systolic 84–170; BP diastolic 34–149
--- NOTE | 2024-02-03 02:02 | NUR ---
PT NPO FOR POSSIBLE SURGICAL PROCEDURE OF R.STUMP INFECTION. Q6H CBG MONITORING IN PROGRESS W/MOST RECENT DOWN TO 83. PT ALSO ON DIALYSIS W/CARTERIX HELD PER VLADIMIR (ELECTRICAL DESIGNER DRAFTER) FOR NPO STATUS. MADE AWARE W/1 AMP D5O RX'D AT THIS TIME. WILL ADMINISTER AND CONTINUE TO MONITOR CBG'S CLOSELY.
[2024-02-03] MEDS ORDERED: Dextrose 50% 50 ML Syringe IV ONE (02:05)
[2024-02-03] MEDS ORDERED: Dextrose 5% 250 ML IV SCH (02:20)
--- NOTE | 2024-02-03 02:21 | NUR ---
D50 AMP ON SHORTAGE SO PHARMACY DISCUSSED ORDER W/ AND WAS DC'D. NEW ORDERED RECEIVED FOR 250MLS BAG OF DEXTROSE 5% AT 83.3 ML/HR.
--- NOTE | 2024-02-03 05:22 | NUR ---
ALERTED TO CRITICAL CBG NOW 47 DESPITE CURRENT DEXTROSE 5% INFUSION BEING RECEIVED. HE'S REVIEWING HER CHART AT THIS TIME AND RELAYED HE'D PLACE NEW ORDERS. WCBO CLOSELY.
--- NOTE | 2024-02-03 05:40 | NUR ---
ORDERED 500 MLS IV DEXTROSE 10% AT 75 ML/HR. INFUSION COMMENCED AND PLAN TO MONITOR CBG CLOSELY. ALSO PLACED PT ON 1.2L FLUID RESTRICT AND INSTRUCTED TO ALERT MANAGER ER OF PT'S ADMISSION AROUND 0700 FOR DIALYSIS THIS AM.
[2024-02-03 05:56] LABS: Hemoglobin 10.1 g/dL (11.5-16.0); Mean Corpuscular HGB 28.4 pg (26.0-34.0); Mean Corpuscular HGB Conc 31.6 g/dL (31.5-36.5); Mean Corpuscular Volume 90 fL (80-100); Mean Platelet Volume 10.8 fL (9.1-12.4); Platelet Count 209 K/mm3 (150-400); RDW Standard Deviation 49.9 fL (35.1-46.3); Red Blood Cell Count 3.56 M/mm3 (3.80-5.20); White Blood Cell Count 5.09 K/mm3 (4.00-11.30)
[2024-02-03] MEDS ORDERED: Dextrose 10% 500 ML IV SCH (06:00)
[2024-02-03] MEDS ORDERED: Pantoprazole Sodium 40 MG Tab PO SCH (06:00)
[2024-02-03] MEDS ORDERED: Levothyroxine Sodium 0.125 MG Tab PO SCH (06:00)
--- NOTE | 2024-02-03 06:12 | NUR ---
CBG GRADUALLY IMPROVING, NOW 58 AT THIS TIME PER PT'S CONT.GLUCOSE MONITOR.
--- NOTE | 2024-02-03 06:35 | NUR ---
SUMMARY: PT A/OX4, CALLS APPROPRIATELY TO SPECIFY NEEDS AND IS PLEASANT AND COOPERATIVE W/CARE. SHE'S ON BEDREST AND REQ'S SADIA LIFT AT BASELINE. TURN SCHEDULE MAINTAINED AND STAINING MACHINE OPERATOR AWARE OF NEED FOR BARIATRIC/AIRBED. PT HAS SORES TO BUTTOCKS W/REDNESS AND SLOUGHING. SHE ALSO HAS SCATTERED SCABS, EXCORIATIONS AND ABRASIONS T/O BODY THAT PT REPORTS IS FROM [place] R/T TO DIALYSIS. PORT IS PRESENT AND INTACT TO R.UPPER CHEST AND DIALYSIS IS PLANNED TODAY. CONSULTING AND PLACED PT ON 1.2L FR. SHE'S ADMITTED FOR R.STUMP INFECTION S/P RECENT BKA W/IV AB RECEIVED IN ER. SUTURES ARE INTACT AND SCABBED ALONG INCISION LINE W/SMALL OPEN AREAS OF WEAPING PURULENT DRAINAIGE. LLE HAS PVD APPEARANCE AND IS RED, SWOLLEN, DRY AND SCALING. X2 ULCERS W/ESHAR NOTED TO L.ANKLE AND TOP OF FOOT. TOES ALSO APPEAR SWOLLEN, CRUSTY, RED AND W/SCATTERED SORES. HER LATERAL HEAL HAS DARK PURPLE CYANOTIC APPEARANCE. SHE RECEIVED A BEDBATH W/THOROUGH SKIN AND WOUND CARE PROVIDED. ANKLE, BUTTOCKS AND L.FA SORES WERE COVERED W/DX'S AND PHOTO DOCUMENTATION WAS COMPLETED. PT USUALLY TAKES 50 UN LONG ACTING INSULIN BUT WAS GIVEN 20 UNITS PER MD ORDERS FOR NPO STATUS SINCE [place] FOR POSS PROCEDURE OF R.STUMP. CBG HAS SINCE TRENDED DOWN AND WAS CRITICALLY LOW (47) DESPITE DETROSE 5% INFUSION. SHE NOW IS RUNNING DEXTROSE 10% AT 75 ML/HR AND CBG IS IMRROVING (66). SEE PREVIOUS NOTES FOR MORE DETAILS. CX'S CALLED TO ORTHO AND PODIATRY ANS.SERVICE AND CELL PHONES. NORRISID RECIEVED IV PRN FOR TOLERABLE RELIEF OF STUMP AND BANK PAIN. BENEDRYL WAS ALSO PROVIDED FOR ITCHING. SHE'S TOLERATES CPAP W/CONT BIOX INTACT AND IS ON RA WA. NO ACUTE CHANGES, VSS/AFEBRILE. WCTM AND REPORT TO DAY RN.
[2024-02-03 06:43] LABS: Magnesium, Blood 3.1 mg/dL (1.6-2.4)
[2024-02-03 07:09] LABS: Albumin, Blood 2.5 g/dL (3.4-5.0); Anion Gap 15 mmol/L (3-11); Blood Urea Nitrogen 81 mg/dL (8-24); CO2, Blood 27 mmol/L (21-32); Calcium, Blood 10.4 mg/dL (8.5-10.1); Chloride, Blood 97 mmol/L (98-108); Creatinine, Blood 8.13 mg/dL (0.40-1.00); Glomerular Filtration Rate 5 (60-); Glucose, Blood 50 mg/dL (70-99); Phosphorus, Blood 7.9 mg/dL (2.5-4.9); Potassium, Blood 4.3 mmol/L (3.5-5.5); Sodium, Blood 135 mmol/L (136-145); Vancomycin, Random 25.3 ug/mL
[2024-02-03] MEDS ORDERED: Anticoagulant Sod Citrate Soln 3 ML SYR INJ PRN (08:25)
[2024-02-03] MEDS ORDERED: Sevelamer Carbonate 800 MG Tab PO SCH (08:30)
[2024-02-03] MEDS ORDERED: Vitamin B Cmplx/Vit C/Folic Ac 1 Tab PO SCH (09:00)
[2024-02-03] MEDS ORDERED: Midodrine 5 MG Tab PO SCH (09:00)
[2024-02-03] MEDS ORDERED: Heparin Sodium,Porcine 5,000 UNIT/0.5 ML SDV SC SCH (09:00)
[2024-02-03] MEDS ORDERED: Furosemide 80 MG Tab PO SCH (09:00)
[2024-02-03] MEDS ORDERED: Sodium Zirconium Cyclosilicate 10 GM Packet PO SCH (09:00)
[2024-02-03] MEDS ORDERED: DiphenhydrAMINE HCl 50 MG/ML 1ML Vial IV PRN (11:55)
[2024-02-03] MEDS ORDERED: NS 1,000 ML IV SCH (14:10)
[2024-02-03 15:05] LABS: Albumin, Blood 2.8 g/dL (3.4-5.0); Albumin/Globulin Ratio 0.7 (0.8-1.8); Bilirubin, Total 0.3 mg/dL (0.1-1.0); Bun/Creatinine Ratio 8.6 (12.0-20.0); Calcium, Blood 9.4 mg/dL (8.5-10.1); Creatinine, Blood 6.14 mg/dL (0.40-1.00); Globulin, Blood 4.2 g/dL (2.2-4.0); Potassium, Blood 3.8 mmol/L (3.5-5.5)
--- NOTE | 2024-02-03 15:40 | NUR ---
PT CELL PHONE, DEXCOM CLIENT LEADER, JEWELRY & HAIR CLIP TRANSFERRED TO PACU WITH PATIENT LABEL ATTACHED.
[2024-02-03] MEDS ORDERED: FentaNYL Citrate 50 MCG/ML 2 ML Injection ONE ×3 (15:42→17:01)
[2024-02-03] MEDS ORDERED: propofoL 20 ML IV ONE (15:42)
[2024-02-03] MEDS ORDERED: Dextrose 50% 50 ML Vial IV ONE (15:45)
[2024-02-03] MEDS ORDERED: Ondansetron HCl 2 MG / ML 2ML Vial ONE (16:08)
[2024-02-03] MEDS ORDERED: Vancomycin HCl 1000 MG ADDvantage ONE (16:14)
[2024-02-03] MEDS ORDERED: HYDROmorphone HCl/Pf 1MG SYR ONE ×2 (16:43→17:01)
[2024-02-03] MEDS ORDERED: NS 250 ML IV PRN (18:15)
[2024-02-03] MEDS ORDERED: HYDROmorphone HCl/Pf 1MG SYR IV PRN (18:25)
[2024-02-03] MEDS ORDERED: HYDROmorphone HCl/Pf 1MG SYR IV ONE (18:25)
[2024-02-03] MEDS ORDERED: GABA400 PO (18:52)
[2024-02-03] MEDS ORDERED: HyDROXyzine HCl 25 MG Tab PO PRN (19:10)
--- NOTE | 2024-02-03 19:43 | NUR ---
SHIFT SUMMARY- PT ALERT AND ORIENTED, HERE FOR INFECTED SURGICAL SITE. PT WENT TO DIALYSIS TODAY AND THEN STRAIGHT TO DAY SURGERY. SHE RETURNED FROM DAY SURGERY AT 1800. SHE BEGAN C/O SEVERE PAIN AT THE SURGICAL SITE. SHE REQUESTED PAIN, BUT IT HAS ONLY BEEN 1 HOUR SINCE LAST PAIN MED. CALLED DR YACNEY AND GOT A OT DOSE OF IV DILAUDID. PRN DOSE CHANGED TO 1-2MG Q4. PT IN BED SECOND POST OP VITALS COMPLETED NEXT DUE AT 1999. NO CURRENT S&S OF DISTRESS NOTED. PT MEDICATED FOR PAIN AT THE TIME OF BEDSIDE REPORT. PT WAS SEEN BY PODIATRY WOUNDS LEFT PEDIATRIC RN AFTER DR SAMS CAME TO SEE THE PT HE ORDERED A VASCULAR US, THE PT WENT TO DIALYSIS AND DAY SURGERY DIRECTLY AFTER. DR SAMS PLACED WOUND CARE ORDERS. NIGHT RN AWARE WOUNDS NEED TO BE DRESSED PER MD ORDER.
[2024-02-03] MEDS ORDERED: Protein Supplement 30 ML UD PO SCH (21:00)
[2024-02-03] MEDS ORDERED: Arginine/Glutamine/Calcium Hmb 1 Packet PO SCH (21:00)
[2024-02-03] MEDS ORDERED: Gabapentin 400 MG Cap PO SCH (21:00)
--- NOTE | 2024-02-03 22:54 | NUR ---
2030 PT LYING IN BED, REPORTS PAIN IN R BKA/R PHANTOM FOOT, PT WILLING TO WAIT FOR DILAUDED TIME TO BE GIVEN. REPORTS ITCHING, GAVE BENADYL AND ATARAX. DRESSING ON R BKA W/REVISION DONE TODAY IS C/D/I, WOUND VAC ATTACHED, SCANT RED DRAINAGE IN TUBING TO WOUND VAC. WOUNDS ON L FOOT, APPLIED DRESSING PER ORDERS. PLACED FOAM HEEL PROTECTOR ON. LAST BS WAS 94. NO OTHER APPARENT SIGNS OF DISTRESS. CALL LIGHT IS IN REACH.
--- NOTE | 2024-02-03 22:57 | NUR ---
2127 GAVE DILAUDED, WILL EVAL FOR EFFECT. NO OTHER APPARENT SIGNS OF DISTRESS. CALL LIGHT IS IN REACH.
--- NOTE | 2024-02-03 23:39 | NUR ---
PT SITTING UP IN BED, AWAKE. ASKING IF IT IS TIME YET FOR PAIN MEDICATION, WILLING TO WAIT UNTIL 0030 TO TAKE THE DILAUDED. NO OTHER APPARENT SIGNS OF DISTRESS. CALL LIGHT IS IN REACH.
[2024-02-04] VITALS (18 sets, daily range): BP systolic 87–150; BP diastolic 30–89
--- NOTE | 2024-02-04 01:38 | NUR ---
PT LYING IN BED, EYES CLOSED, APPEARS TO BE RESTING. BREATHING IS EVEN, UNLABORED. NO APPARENT SIGNS OF DISTRESS. CALL LIGHT IS IN REACH. RN COVERING FOR LUNCH SAW PT'S SAT DROP TO 79%, PLACED HER ON 2L NC O2, SHE IS NOW AT 97%.
--- NOTE | 2024-02-04 04:18 | NUR ---
PT LYING IN BED, EYES CLOSED, APPEARS TO BE RESTING. BREATHING IS EVEN, UNLABORED. NO APPARENT SIGNS OF DISTRESS. CALL LIGHT IS IN REACH.
[2024-02-04 05:31] LABS: Hematocrit 30.4 % (33.0-51.0); Hemoglobin 9.3 g/dL (11.5-16.0)
--- NOTE | 2024-02-04 05:56 | NUR ---
PT IS AAO X 4, ON 2L NC O2. BS WAS 205. WOUNDS ON L FOOT WITH DRESSINGS ORDERED, DRESSING ON R BKA STUMP, REVISION DONE YESTERDAY, DRESSING IS C/D/I, WOUND VAC ATTACHED WITH RED DRAINAGE IN WOUND VAC TUBING. PT REPORTS PAIN IN R BKA AND R PHANTOM FOOT, GOT DILAUDED X 3.
--- NOTE | 2024-02-04 05:58 | NUR ---
PT LYING IN BED, EYES CLOSED, APPEARS TO BE RESTING. BREATHING IS EVEN, UNLABORED. NO APPARENT SIGNS OF DISTRESS. CALL LIGHT IS IN REACH. NO OTHER CHANGES THIS SHIFT.
[2024-02-04 06:17] LABS: Albumin, Blood 2.7 g/dL (3.4-5.0); Anion Gap 16 mmol/L (3-11); Blood Urea Nitrogen 62 mg/dL (8-24); Bun/Creatinine Ratio 8.5 (12.0-20.0); CO2, Blood 26 mmol/L (21-32); Chloride, Blood 95 mmol/L (98-108); Creatinine, Blood 7.29 mg/dL (0.40-1.00); Glomerular Filtration Rate 6 (60-); Glucose, Blood 262 mg/dL (70-99); Magnesium, Blood 2.9 mg/dL (1.6-2.4); Phosphorus, Blood 7.2 mg/dL (2.5-4.9); Potassium, Blood 5.2 mmol/L (3.5-5.5); Sodium, Blood 132 mmol/L (136-145); Vancomycin, Random 21.1 ug/mL
[2024-02-04] MEDS ORDERED: Anticoagulant Sod Citrate Soln 3 ML SYR INJ PRN (07:25)
[2024-02-04] MEDS ORDERED: Calcium Acetate 667 MG Gel Cap PO SCH (08:30)
[2024-02-04] MEDS ORDERED: Empagliflozin 10 MG TAB PO SCH (09:00)
[2024-02-04] MEDS ORDERED: FLUoxetine HCL 20 MG CAP PO SCH (09:00)
[2024-02-04] MEDS ORDERED: Petrolatum/Mineral Oil/Lanolin 1 APPLIC/50 GM Tube TOP SCH (09:00)
[2024-02-04] MEDS ORDERED: Vancomycin HCL 1,500 MG in NS 250 ML IV ONE (12:00)
[2024-02-04] MEDS ORDERED: Insulin Regular 100 UNIT/ML 10ML Vial SC SCH (14:00)
[2024-02-04] MEDS ORDERED: Insulin Human Lispro 100 Units/ML 3ML Syringe SC SCH (14:00)
[2024-02-04] MEDS ORDERED: Darbepoetin Alfa In Albumn Sol 60 MCG/0.3 ML Syringe SC SCH (16:00)
--- NOTE | 2024-02-04 20:08 | NUR ---
SHIFT SUMMARY- PT HAS HAD CHANGES TO HER INSULIN DOSING D/T POOR DIET CHOICES. PT WENT TO DIALYSIS TODAY DIEGO YESTERDAY. STAFF TOLD THE PT SHE IS ON A FLUID RESTRICTION 1200ML SHE IS REFUSING TO FOLLOW THE RESTRICTION. PT HAS HAD OVER 200ML TODAY. SHE DID NOT USE HER CPAP LAST NIGHT AND THAT MAY HAVE CONTRIBUTED TO HER INABILITY TO WAKE AFTER DIALYSIS TODAY. CPAP WAS PLACED ON THE PT AFTER SHE RETURNED FROM DIALYSIS AND WAS NOT RESPONDING TO STAFF SHE HAD BEFORE. DR YANCEY NOTIFIED. BG WAS UP TO 392 WHEN FIRST DOSE OF REG INSULIN WAS GIVEN. BEDSIDE REPORT COMPLETED WITH NIGHT RN, PT SITTING UP IN BED SMILING AND DOSING INSISTING HER PAIN LEVEL IS 8/10 AND REQUESTING 2MG DOSE OF DILAUDID IV. SPOKE TO NIGHT RN AND THE PT ABOUT TRYING THE LOWER DOSE FOR HER NEXT DOSE. PT IN BED, DROWSY, 2L O2 VIA NC IN PLACE. NO S&S OF ISTRESS NOTED. PT REFUSED TO REPOSITION WHEN STAFF ATTEMPTED TO DO SO. NIGHT RN AWARE OF PT NON-COMPLIANCE TO DIET, FLUID RESTRICTION AND REPOSITIONING FOR SKIN PROTECTION.
[2024-02-04] MEDS ORDERED: Insulin Glargine-Yfgn 100 Unit/mL 3 ML SYR SC SCH (21:00)
[2024-02-05] VITALS (12 sets, daily range): BP systolic 100–139; BP diastolic 47–101
--- NOTE | 2024-02-05 05:15 | NUR ---
SHIFT SUMMARY NOC PT A/O X 4. PLEASANT AND COOPERATIVE WITH CARE. VSS. Q6H CBG 191 WITH 2 UNITS R INSULIN GIVEN ALONG WITH 25 UNITS LONG ACTING INSULING. PT PAIN BEING MANAGED WELL WITH IV DILAUDID 1 MG Q2P. PT ON 2L/NC SPO2 >92% ON BIOX, AND WEARING CPAP FOR SLEEP. R AKA AND L FOOT HAVE DRESSINGS IN PLACE C/D/I. R AKA HAS HEMOVAC WITH SCANT BRIGHT RED DRAINAGE. IR CONSULT FOR DIABETIC L FOOT ULCER ATTEMPTED, BUT ANSWERING SERVICE NOT AVAILABLE AT THIS TIME, WILL LET DAY RN KNOW TO CALL IN CONSULT. 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 PT CURRENTLY RESTING WITH BED IN LOWEST POSITION, AND CALL LIGHT WITHIN REACH.
[2024-02-05 06:36] LABS: Hematocrit 28.9 % (33.0-51.0); Hemoglobin 8.9 g/dL (11.5-16.0)
[2024-02-05 06:57] LABS: Albumin, Blood 2.6 g/dL (3.4-5.0); Anion Gap 14 mmol/L (3-11); Blood Urea Nitrogen 72 mg/dL (8-24); Bun/Creatinine Ratio 11.5 (12.0-20.0); CO2, Blood 28 mmol/L (21-32); Calcium, Blood 9.3 mg/dL (8.5-10.1); Chloride, Blood 96 mmol/L (98-108); Creatinine, Blood 6.27 mg/dL (0.40-1.00); Glomerular Filtration Rate 7 (60-); Glucose, Blood 215 mg/dL (70-99); Phosphorus, Blood 6.3 mg/dL (2.5-4.9); Potassium, Blood 4.8 mmol/L (3.5-5.5); Sodium, Blood 133 mmol/L (136-145); Vancomycin, Random 34.9 ug/mL
[2024-02-05] MEDS ORDERED: Gabapentin 300 MG Cap PO SCH (09:00)
--- NOTE | 2024-02-05 10:56 | NUR ---
am check, vitals, Blood sugar 168 r.n. aware, cpap on, LIFT ISO mersa, call light in reach
[2024-02-05] MEDS ORDERED: Midazolam HCl 1MG / ML 2ML Vial ONE ×2 (13:42→15:02)
[2024-02-05] MEDS ORDERED: FentaNYL Citrate 50 MCG/ML 2 ML Injection ONE ×2 (13:43→15:07)
[2024-02-05] MEDS ORDERED: NS 500 ML IV ONE (13:43)
[2024-02-05] MEDS ORDERED: Heparin Sodium 1000 Units/ML 10ML MDV ONE (13:48)
[2024-02-05] MEDS ORDERED: NS 250 ML IV ONE (13:48)
[2024-02-05] MEDS ORDERED: NS 1,000 ML IV ONE (13:48)
[2024-02-05] MEDS ORDERED: Nitroglycerin 2 MG/20 ML BTL ONE (13:49)
--- NOTE | 2024-02-05 15:54 | NUR ---
PT BACK TO RECOVERY ROOM WHILE WAITING FOR PCU 4 TO BE AVAILABLE. PT DROWSY, BUT WAKES EASILY TO VERBAL STIMULI. ANSWERS QUESTIONS APPROPIRATLY.
--- NOTE | 2024-02-05 16:20 | NUR ---
R GROIN SITE SOFT, NON TENDER.
--- NOTE | 2024-02-05 17:13 | NUR ---
arrival to pcu patient arrived to pcu from cathode builder. patient transfered to pcu bed via slider sheet and repositioned. patient vitals stable. patient has a right femoral site that has bleeding at the site, but no change in blood that is at the site since arrival. patient is alert and oriented x4. neuro is intact. patient calls appropriately for needs.photos taken of wounds and scratches scattered throughout, unable to get photos on bottom due to not having camera at the time and new dressings in place. see shift assessment for further detials. dressing changes done when arriving to pcu. plan of care is up to date
--- NOTE | 2024-02-05 18:20 | NUR ---
shift summary wound care & dressing change to right stump. see previous notes. no acute changes. vitals remain stable.
[2024-02-06] VITALS (18 sets, daily range): BP systolic 91–150; BP diastolic 25–123
[2024-02-06 05:23] LABS: Hematocrit 29.2 % (33.0-51.0); Hemoglobin 9.2 g/dL (11.5-16.0)
[2024-02-06 05:45] LABS: Albumin, Blood 2.6 g/dL (3.4-5.0); Anion Gap 13 mmol/L (3-11); Blood Urea Nitrogen 92 mg/dL (8-24); Bun/Creatinine Ratio 12.8 (12.0-20.0); CO2, Blood 29 mmol/L (21-32); Calcium, Blood 9.7 mg/dL (8.5-10.1); Chloride, Blood 94 mmol/L (98-108); Creatinine, Blood 7.16 mg/dL (0.40-1.00); Glomerular Filtration Rate 6 (60-); Glucose, Blood 251 mg/dL (70-99); Magnesium, Blood 3.6 mg/dL (1.6-2.4); Phosphorus, Blood 6.9 mg/dL (2.5-4.9); Sodium, Blood 131 mmol/L (136-145); Vancomycin, Random 32.3 ug/mL
--- NOTE | 2024-02-06 07:00 | NUR ---
NOC SHIFT SUMMARY STEPHANIE IS ORIENTED X4 OVERNIGHT, VSS. PAIN 7-10/10 WHEN AWAKE, FREQUENTLY REQUESTING PRN PAIN MEDICATIONS. REPORTS ITCHING AND DISCOMFORT. PRNS GIVEN - SEE EMAR FOR DETAILS. ON CPAP WHEN SLEEPING. SR ON TELEMETRY. R GROIN SITE CDI, NO HEMATOMA, DRIED BLOOD UNDER TEGADERM. SOFT AND NONTENDER. R STUMP WRAPPED, NEUROVASCULAR STATUS INTACT. LLE WOUND CARE COMPLETED ON DAYSHIFT, NO ISSUES OVERNIGHT. EDUCATED PT ON FLUID RESTRICTION, PT CONTINUES TO DRINK DIET DR. CARLIN FROM BAG. HD CATH TO RIGHT CHEST CDI. POSSIBLE DIALYSIS TODAY
[2024-02-06] MEDS ORDERED: Anticoagulant Sod Citrate Soln 3 ML SYR INJ PRN (07:20)
[2024-02-06] MEDS ORDERED: Insulin Regular 100 UNIT/ML 10ML Vial SC SCH (07:30)
--- NOTE | 2024-02-06 11:05 | NUR ---
am note this rn assumed care at 0700. vital signs stable. tele sinus rhythm. patient uses cpap when sleeping otherwise is on room air when awake. patient is alert and oriented x4. neuro is intact. patient is able to make needs known and uses call light appropriately. denies shortness of breath or chest pain. reports pain in right stump and back, rated at 7, medicated per emar and upon assessment at 6. see shift assessment for further detials. md young in to see patient this am. increased fluid restriction to 1.5l and edcuated patient on compliance. dialysis this morning. patient returned from dialysis at 1104. plan is up to date
[2024-02-06] MEDS ORDERED: HYDROmorphone HCl 4 MG Tab PO PRN (16:00)
--- NOTE | 2024-02-06 17:41 | NUR ---
SHIFT SUMMARY patient stum dressing continues to fall off and need to be replaced from repositioning in bed. patient wound care done. patient had a bath and linen change.see previous note. switched to oral pain medication. no acute changes. plan remains up to date
[2024-02-07 04:23] VITALS: BP 128/53
--- NOTE | 2024-02-07 05:53 | NUR ---
END OF SHIFT SUMMARY PT REMAINED ON CPAP THROUGHOUT NIGHT. PT COMPLAINED OF PAIN EARLY IN THE NIGHT AND WAS RELIEVED WITH PAIN MEDICATION. NO OTHER ACUTE EVENTS OVERNIGHT, PLAN OF CARE CONTINUED.
[2024-02-07 07:19] VITALS: BP 103/51
[2024-02-07 07:52] LABS: BASOPHILS ABSOLUTE AUTO 0.04 K/mm3 (0.00-0.23); BASOPHILS PERCENT AUTO 1 % (0-2); EOSINOPHILS ABSOLUTE AUTO 0.29 K/mm3 (0.00-0.68); EOSINOPHILS PERCENT AUTO 6 % (0-6); Hematocrit 27.4 % (33.0-51.0); Hemoglobin 8.6 g/dL (11.5-16.0); IMMATURE GRAN ABSOLUTE AUTO 0.02 K/mm3 (0.00-0.10); IMMATURE GRAN PERCENT AUTO 0 % (0-1); LYMPHOCYTES ABSOLUTE AUTO 0.46 K/mm3 (0.84-5.20); LYMPHOCYTES PERCENT AUTO 9 % (21-46); MONOCYTES ABSOLUTE AUTO 0.33 K/mm3 (0.16-1.47); MONOCYTES PERCENT AUTO 7 % (4-13); Mean Corpuscular HGB 28.4 pg (26.0-34.0); Mean Corpuscular HGB Conc 31.4 g/dL (31.5-36.5); Mean Corpuscular Volume 90 fL (80-100); Mean Platelet Volume 11.5 fL (9.1-12.4); NEUTROPHILS ABSOLUTE AUTO 3.77 K/mm3 (1.96-9.15); NEUTROPHILS PERCENT AUTO 77 % (41-73); Platelet Count 191 K/mm3 (150-400); RDW Coefficient Variation 14.7 % (11.7-14.2); RDW Standard Deviation 48.7 fL (35.1-46.3); Red Blood Cell Count 3.03 M/mm3 (3.80-5.20); White Blood Cell Count 4.91 K/mm3 (4.00-11.30)
[2024-02-07 08:18] LABS: Albumin, Blood 2.5 g/dL (3.4-5.0); Anion Gap 17 mmol/L (3-11); Blood Urea Nitrogen 90 mg/dL (8-24); Bun/Creatinine Ratio 13.2 (12.0-20.0); CO2, Blood 26 mmol/L (21-32); Calcium, Blood 9.8 mg/dL (8.5-10.1); Chloride, Blood 90 mmol/L (98-108); Creatinine, Blood 6.81 mg/dL (0.40-1.00); Glomerular Filtration Rate 7 (60-); Glucose, Blood 429 mg/dL (70-99); Magnesium, Blood 3.6 mg/dL (1.6-2.4); Phosphorus, Blood 6.1 mg/dL (2.5-4.9); Sodium, Blood 128 mmol/L (136-145); Vancomycin, Random 28.8 ug/mL
--- NOTE | 2024-02-07 08:30 | NUR ---
PT TRANSFERED TO MEDICAL FLOOR ROOM 303 AND A CALL WAS PLACED TO THE SON DALTON. PHONE NUMBER WAS IN CHART, SON DID NOT ANSWER BUT MESSAGE WAS LEFT TO GIVE US A CALL BACK.
--- NOTE | 2024-02-07 09:06 | NUR ---
REPORT GIVEN TO MELVIN DOLAN, PT TRANSFERRED TO RM 303, ALL BELONGINGS SENT WITH THE PT.
[2024-02-07] MEDS ORDERED: CefTRIAXone Sodium 1,000 MG in NS 100 ML IV SCH (10:00)
[2024-02-07] MEDS ORDERED: DAPTOmycin 600 MG in NS 50 ML IV SCH (10:30)
--- NOTE | 2024-02-07 11:07 | NUR ---
DR PEPPER NOTIFIED OF CBG AT TIME OF MORNING ROUNDING. DR PEPPER ORDERED FOR CBG TO BE CHECKED AT THAT TIME, WHICH WAS 356, DR PEPPER NOTIFIED AT 1104 WHO GAVE VERBAL ORDERS FOR ONE TIME DOSE OF HUMALOG, SEE EMAR. ALSO TO RECHECL CBG ONE HOUR AFTER DOSE.
[2024-02-07] MEDS ORDERED: Insulin Human Lispro 100 Units/ML 3ML Syringe SC ONE (11:10)
[2024-02-07 12:30] VITALS: BP 140/106
--- NOTE | 2024-02-07 15:22 | NUR ---
PER DR PEPPER, CALL PLACED TO DR DANIELS TO INQUIRE ABOUT MAINTENANCE OF DRAIN IN PLACE FOLLOWING I&D THAT WAS DONE ON RIGHT AKA STUMP. MESSAGE LEFT WITH ANSWERING SERVICE.
[2024-02-07 16:00] VITALS: BP 125/48
[2024-02-07] MEDS ORDERED: Metoclopramide HCl 5MG / ML 2ML Vial IV PRN (16:45)
--- NOTE | 2024-02-07 18:49 | NUR ---
END OF SHIFT SUMMARY: A&Ox4. PLEASANT AND COOPERATIVE WITH CARE. CALLS APPROPRIATELY AND IS ABLE TO ADVOCATE NEEDS EFFECTIVELY. BEDREST. INCONTINENT OF BOWEL AND BLADDER. BM x2 TODAY; DARK BROWN STOOL. MEDS WHOLE WITH FLUIDS. PAIN; PRN HYDROMORPHONE ADMINISTERED Q4H PRN (SHE REQUESTS THIS ROUTINELY). DRAIN TO RIGHT AKA STUMP PATENT. WILL CONSULT DR. FULTON, SURGEON, TOMORROW, FOR FOLLOW-UP WOUNDCARE INSTRUCTIONS. BANDAGE DISLODGED THIS EVENING DURING BED CHANGE; PETROLEUM GAUZE REPLACED AND RECOVERED BY THIS RN AND ONCOMING NIGHT NURSE.BLOOD SUGARS HIGH THIS AFTERNOON, BUT <150 THIS EVEING. C/O SEVERE NAUSEA, FINALLY RELIEVED WITH PRN METOCLOPRAMIDE. BED IN LOWEST POSITION. CALL LIGHT WITHIN REACH. ALL NEEDS MET. REPORT TO ONCOMING NURSE.
[2024-02-07 19:39] VITALS: BP 118/46
[2024-02-08] VITALS (16 sets, daily range): BP systolic 81–1128; BP diastolic 32–71
--- NOTE | 2024-02-08 05:35 | NUR ---
ADMITTED 02/02/24: ANTIBIOTIC R AKA.AAOX4, LIFT WITH MAX ASSIST, 2-3 STAFF. 2L O2 VIA NC. HEMODYALYSIS. OH SCRATCHES BUE, SCABS IN VARIOUS STAGES OF HEALING. SUTURES TO R STUMP, DRESSING REINFORCES @ SHIFT CHANGE, SCABS TO G TOE AND 5TH DIGIT, APPLIED AQUAPHOR. BG ACHS WITH SLIDING SCALE. LUE POWERGLIED, SL, RECIEVING ROCEPHIN. DILAUDID PO FOR PAIN. PT HAD A RESTFUL NIGHT
[2024-02-08 06:22] LABS: Hematocrit 27.1 % (33.0-51.0); Hemoglobin 8.5 g/dL (11.5-16.0)
[2024-02-08 06:43] LABS: Magnesium, Blood 3.6 mg/dL (1.6-2.4)
[2024-02-08 06:44] LABS: Albumin, Blood 2.5 g/dL (3.4-5.0); Anion Gap 13 mmol/L (3-11); Blood Urea Nitrogen 99 mg/dL (8-24); CO2, Blood 27 mmol/L (21-32); Calcium, Blood 10.5 mg/dL (8.5-10.1); Chloride, Blood 93 mmol/L (98-108); Creatinine, Blood 7.59 mg/dL (0.40-1.00); Glomerular Filtration Rate 6 (60-); Glucose, Blood 393 mg/dL (70-99); Phosphorus, Blood 6.5 mg/dL (2.5-4.9); Potassium, Blood 4.9 mmol/L (3.5-5.5); Sodium, Blood 128 mmol/L (136-145)
[2024-02-08] MEDS ORDERED: Anticoagulant Sod Citrate Soln 3 ML SYR INJ PRN (07:15)
--- NOTE | 2024-02-08 07:34 | NUR ---
PATIENT BLOOD SUGAR [address] PEPPER NOTIFIED AND WILL PUT IN ORDERS.
[2024-02-08] MEDS ORDERED: Insulin Glargine-Yfgn 100 Unit/mL 3 ML SYR SC SCH (08:00)
[2024-02-08] MEDS ORDERED: Insulin Human Lispro 100 Units/ML 3ML Syringe SC SCH ×2 (11:30)
--- NOTE | 2024-02-08 17:24 | NUR ---
DR FULTON TO BEDSIDE: DRAIN PULLED AND C/W INSERTED DEVICE. MINIMAL BLEEDING. INSTRUCTED TO COVER WITH XEROFORM, NONADHESIVE AND SECURE. CHANGE DAILY.
--- NOTE | 2024-02-08 21:24 | NUR ---
END OF SHIFT SUMMARY: A&Ox4. PLEASANT AND COOPERATIVE WITH CARE. CALLS APPROPRIATELY AND IS ABLE TO ADVOCATE NEEDS EFFECTIVELY. BEDBOUND. CONTINENT OF URINE, THOUGH OLIGURIC SECONDARY TO ESRD. LOGROLL FOR ELIMINATION CLEANING. LBM 02/07/24. MEDS WHOLE WITH FLUIDS. 1.5L FLUID RESTRICTION, THOUGH OFTEN NONCOMPLIANT WITH THIS AND WILL ASK FOR FLUIDS DESPITE BEING OVER LIMIT. HD TODAY: 3500mL REMOVED. CONTINUED C/O PAIN AND PRN DILAUDID ADMINISTERED Q4H ROUTINELY. DR FULTON TO BEDSIDE; DRAIN PULLED AND DISCUSSION REGARDING MORTALITY AND SEVERITY OF CONDITION. PALLIATIVE CARE CONSULT DISCUSSED AND WILL MEET WITH HER TOMORROW. OBVIOUS DISTRAUGHT AFTER DISCUSSION WITH DR. FULTON. THERAPEUTIC COMMUNICATION AND ACTIVE LISTENING UTILIZED. BED IN LOWEST POSITION. CALL LIGHT WITHIN REACH. ALL NEEDS MET. REPORT TO ONCOMING NURSE.
[2024-02-09] VITALS (15 sets, daily range): BP systolic 100–136; BP diastolic 49–82
[2024-02-09 04:48] LABS: Hematocrit 27.2 % (33.0-51.0); Hemoglobin 8.7 g/dL (11.5-16.0)
[2024-02-09 05:10] LABS: Albumin, Blood 2.6 g/dL (3.4-5.0); Anion Gap 14 mmol/L (3-11); Blood Urea Nitrogen 73 mg/dL (8-24); Bun/Creatinine Ratio 11.1 (12.0-20.0); CO2, Blood 26 mmol/L (21-32); Calcium, Blood 9.6 mg/dL (8.5-10.1); Chloride, Blood 99 mmol/L (98-108); Creatinine, Blood 6.55 mg/dL (0.40-1.00); Glomerular Filtration Rate 7 (60-); Glucose, Blood 238 mg/dL (70-99); Magnesium, Blood 3.2 mg/dL (1.6-2.4); Phosphorus, Blood 5.1 mg/dL (2.5-4.9); Potassium, Blood 4.3 mmol/L (3.5-5.5); Sodium, Blood 135 mmol/L (136-145)
--- NOTE | 2024-02-09 06:00 | NUR ---
NOC SUMMARY- PT PAIN MANAGED PER JUN. PT WAS ABLE TO TOLERATE CPAP THIS SHIFT. PT DRESSING ARE C/D/I. PT MAIN ISSUE TIS AM IS CONSTIPATION. WILL PAS ONTO DAYSHIFT TO ASK FOR BOWEL CARE. CALL LIGHT IN REACH.
[2024-02-09] MEDS ORDERED: Albumin (Human) 25gm/100ml 100 ML IV PRN (07:25)
[2024-02-09] MEDS ORDERED: Anticoagulant Sod Citrate Soln 3 ML SYR INJ PRN (07:25)
[2024-02-09] MEDS ORDERED: Docusate Sodium/Senna 1 Tab PO ONE (15:00)
[2024-02-09] MEDS ORDERED: Docusate Sodium/Senna 1 Tab PO PRN (15:00)
--- NOTE | 2024-02-09 17:46 | NUR ---
REPORT RECEIVED VERIFIED PT THIS MORNING WAS TAKEN TO DIALYSIS. 1000 PT RETURNED HAD 3500ml OUTPUT. pt covered for generalizerd pain. dressings changed to both lower extremity, wounds are cdi with no drainage noted. pt angelique well. DIANA power glide in place with good flush and reported blood return cdi.
[2024-02-10] VITALS (15 sets, daily range): BP systolic 94–134; BP diastolic 49–92
[2024-02-10 04:48] LABS: BASOPHILS ABSOLUTE AUTO 0.04 K/mm3 (0.00-0.23); BASOPHILS PERCENT AUTO 1 % (0-2); EOSINOPHILS ABSOLUTE AUTO 0.31 K/mm3 (0.00-0.68); EOSINOPHILS PERCENT AUTO 7 % (0-6); Hematocrit 27.3 % (33.0-51.0); Hemoglobin 8.5 g/dL (11.5-16.0); IMMATURE GRAN ABSOLUTE AUTO 0.02 K/mm3 (0.00-0.10); IMMATURE GRAN PERCENT AUTO 1 % (0-1); LYMPHOCYTES ABSOLUTE AUTO 0.58 K/mm3 (0.84-5.20); LYMPHOCYTES PERCENT AUTO 13 % (21-46); MONOCYTES ABSOLUTE AUTO 0.33 K/mm3 (0.16-1.47); MONOCYTES PERCENT AUTO 8 % (4-13); Mean Corpuscular HGB Conc 31.1 g/dL (31.5-36.5); Mean Corpuscular Volume 90 fL (80-100); NEUTROPHILS ABSOLUTE AUTO 3.08 K/mm3 (1.96-9.15); NEUTROPHILS PERCENT AUTO 71 % (41-73); Platelet Count 185 K/mm3 (150-400); RDW Coefficient Variation 14.4 % (11.7-14.2); RDW Standard Deviation 46.5 fL (35.1-46.3); Red Blood Cell Count 3.04 M/mm3 (3.80-5.20); White Blood Cell Count 4.36 K/mm3 (4.00-11.30)
--- NOTE | 2024-02-10 05:02 | NUR ---
NOC SUMMARY- PAIN MANAGED WELL. PT HAS BEEN WEARING CPAP WHILE SLEEPING. PT HAS NO COMPLAINTS. PT DRESSINGS C/D/I. CALL LIGHT IN REACH.
[2024-02-10 05:06] LABS: Magnesium, Blood 2.8 mg/dL (1.6-2.4)
[2024-02-10 05:07] LABS: Anion Gap 14 mmol/L (3-11); Blood Urea Nitrogen 59 mg/dL (8-24); Bun/Creatinine Ratio 10.3 (12.0-20.0); CO2, Blood 27 mmol/L (21-32); Calcium, Blood 9.5 mg/dL (8.5-10.1); Chloride, Blood 98 mmol/L (98-108); Creatinine, Blood 5.72 mg/dL (0.40-1.00); Glomerular Filtration Rate 8 (60-); Glucose, Blood 312 mg/dL (70-99); Phosphorus, Blood 4.1 mg/dL (2.5-4.9); Potassium, Blood 4.1 mmol/L (3.5-5.5); Sodium, Blood 135 mmol/L (136-145)
[2024-02-10] MEDS ORDERED: Anticoagulant Sod Citrate Soln 3 ML SYR INJ PRN (07:15)
--- NOTE | 2024-02-10 19:32 | NUR ---
END OF SHIFT SUMMARY: A&Ox4. PLEASANT AND COOPERATIVE WITH CARE. CALLS APPROPRIATELY AND IS ABLE TO ADVOCATE NEEDS EFFECTIVELY. BEDREST; LOG-ROLL FOR PERSONAL CARE DUE TO INABILITY TO AMBULATE AND FINDS IT PAINFUL TO GET ON BED PLAN. MEDS WHOLE WITH FLUIDS. MEDICATED PRN PAIN q4h (PRN). GLUCOSE 230s AM AND NOON; DROPPED TO 62 @ DINNERTIME AND WAS UP TO 101 AFTER HAVING SNACK. HAS REFUSED BINDERS AND MAJORITY OF MEALS TODAY, OPTING FOR SNACKS AND PROTEIN SUPPLEMENTS. NONCOMPLIANT WITH FLUID RESTRICTION, STATING SHE HAS HAD DIALYSIS DAILY, SO SHE SHOULD BE ABLE TO HAVE MORE FLUIDS. DIALYSIS DONE IN-ROOM TODAY; 3000mL REMOVED. LIKELY DC TOMORROW; HOPING FOR TODAY BUT CARE MANAGEMENT WANTS TO ENSURE ALL FUTURE NEEDS MET PRIOR TO DISCHARGE. BED IN LOWEST POSITION. CALL LIGHT WITHIN REACH. ALL NEEDS MET. REPORT TO ONCOMING NURSE.
[2024-02-10] MEDS ORDERED: Miconazole Nitrate 2% 85 GM PWD TOP SCH (21:00)
[2024-02-10] MEDS ORDERED: Insulin Glargine-Yfgn 100 Unit/mL 3 ML SYR SC SCH (21:00)
[2024-02-11] VITALS (13 sets, daily range): BP systolic 91–147; BP diastolic 40–74
[2024-02-11 05:44] LABS: BASOPHILS ABSOLUTE AUTO 0.04 K/mm3 (0.00-0.23); BASOPHILS PERCENT AUTO 1 % (0-2); EOSINOPHILS ABSOLUTE AUTO 0.32 K/mm3 (0.00-0.68); EOSINOPHILS PERCENT AUTO 7 % (0-6); Hematocrit 29.2 % (33.0-51.0); Hemoglobin 9.2 g/dL (11.5-16.0); IMMATURE GRAN ABSOLUTE AUTO 0.01 K/mm3 (0.00-0.10); IMMATURE GRAN PERCENT AUTO 0 % (0-1); LYMPHOCYTES ABSOLUTE AUTO 0.67 K/mm3 (0.84-5.20); LYMPHOCYTES PERCENT AUTO 16 % (21-46); MONOCYTES PERCENT AUTO 7 % (4-13); Mean Corpuscular HGB 28.6 pg (26.0-34.0); Mean Corpuscular HGB Conc 31.5 g/dL (31.5-36.5); Mean Corpuscular Volume 91 fL (80-100); Mean Platelet Volume 11.1 fL (9.1-12.4); NEUTROPHILS ABSOLUTE AUTO 2.99 K/mm3 (1.96-9.15); NEUTROPHILS PERCENT AUTO 69 % (41-73); Platelet Count 188 K/mm3 (150-400); RDW Coefficient Variation 14.5 % (11.7-14.2); RDW Standard Deviation 47.8 fL (35.1-46.3); Red Blood Cell Count 3.22 M/mm3 (3.80-5.20); White Blood Cell Count 4.33 K/mm3 (4.00-11.30)
[2024-02-11 06:54] LABS: Magnesium, Blood 2.7 mg/dL (1.6-2.4)
[2024-02-11 06:55] LABS: Anion Gap 12 mmol/L (3-11); Blood Urea Nitrogen 45 mg/dL (8-24); Bun/Creatinine Ratio 8.4 (12.0-20.0); CO2, Blood 28 mmol/L (21-32); Calcium, Blood 9.9 mg/dL (8.5-10.1); Chloride, Blood 102 mmol/L (98-108); Creatinine, Blood 5.35 mg/dL (0.40-1.00); Glomerular Filtration Rate 9 (60-); Glucose, Blood 139 mg/dL (70-99); Phosphorus, Blood 3.5 mg/dL (2.5-4.9); Potassium, Blood 3.8 mmol/L (3.5-5.5); Sodium, Blood 138 mmol/L (136-145)
[2024-02-11] MEDS ORDERED: Anticoagulant Sod Citrate Soln 3 ML SYR INJ PRN (12:55)
[2024-02-11] MEDS ORDERED: Albumin (Human) 25gm/100ml 100 ML IV PRN (13:30)
--- NOTE | 2024-02-11 18:54 | NUR ---
END OF SHIFT SUMMARY: A&Ox4. PLEASANT AND COOPERATIVE WITH CARE. CALLS APPROPRIATELY AND IS ABLE TO ADVOCATE NEEDS EFFECTIVELY. BEDREST; LOG-ROLL FOR PERSONAL CARE DUE TO INABILITY TO AMBULATE AND FINDS IT PAINFUL TO GET ON BED PLAN. MEDS WHOLE WITH FLUIDS. MEDICATED PRN PAIN q4h (PRN). PICC PLACED TODAY FOR LONG-TERM IVABx ADMINISTRATION. TAKEN TO DIALYSIS 1300; 3000mL REMOVED. NONCOMPLIANT WITH FLUID RESTRICTION; EDUCATED ON RISKS OF FLUID OVERLOAD AND VOICES UNDERSTANDING, BUT CONTINUES TO REQUEST ADDITIONAL FLUIDS. BED IN LOWEST POSITION. CALL LIGHT WITHIN REACH. ALL NEEDS MET. REPORT TO ONCOMING NURSE.
[2024-02-12 04:15] VITALS: BP 134/51
[2024-02-12 05:39] LABS: BASOPHILS ABSOLUTE AUTO 0.04 K/mm3 (0.00-0.23); BASOPHILS PERCENT AUTO 1 % (0-2); EOSINOPHILS ABSOLUTE AUTO 0.26 K/mm3 (0.00-0.68); EOSINOPHILS PERCENT AUTO 6 % (0-6); Hematocrit 27.3 % (33.0-51.0); Hemoglobin 8.6 g/dL (11.5-16.0); IMMATURE GRAN ABSOLUTE AUTO 0.03 K/mm3 (0.00-0.10); IMMATURE GRAN PERCENT AUTO 1 % (0-1); LYMPHOCYTES ABSOLUTE AUTO 0.63 K/mm3 (0.84-5.20); LYMPHOCYTES PERCENT AUTO 14 % (21-46); MONOCYTES ABSOLUTE AUTO 0.31 K/mm3 (0.16-1.47); MONOCYTES PERCENT AUTO 7 % (4-13); Mean Corpuscular HGB 28.3 pg (26.0-34.0); Mean Corpuscular HGB Conc 31.5 g/dL (31.5-36.5); Mean Corpuscular Volume 90 fL (80-100); Mean Platelet Volume 11.3 fL (9.1-12.4); NEUTROPHILS ABSOLUTE AUTO 3.23 K/mm3 (1.96-9.15); NEUTROPHILS PERCENT AUTO 72 % (41-73); Platelet Count 185 K/mm3 (150-400); RDW Coefficient Variation 14.6 % (11.7-14.2); RDW Standard Deviation 47.7 fL (35.1-46.3); Red Blood Cell Count 3.04 M/mm3 (3.80-5.20)
[2024-02-12 06:22] LABS: Albumin, Blood 3.4 g/dL (3.4-5.0); Anion Gap 12 mmol/L (3-11); Blood Urea Nitrogen 43 mg/dL (8-24); Bun/Creatinine Ratio 8.6 (12.0-20.0); CO2, Blood 28 mmol/L (21-32); Calcium, Blood 9.4 mg/dL (8.5-10.1); Chloride, Blood 98 mmol/L (98-108); Glomerular Filtration Rate 10 (60-); Glucose, Blood 314 mg/dL (70-99); Phosphorus, Blood 2.7 mg/dL (2.5-4.9); Potassium, Blood 4.3 mmol/L (3.5-5.5); Sodium, Blood 134 mmol/L (136-145)
[2024-02-12 08:11] VITALS: BP 131/80
[2024-02-12 15:25] VITALS: BP 122/54
[2024-02-12 20:25] VITALS: BP 117/50
[2024-02-13] VITALS (17 sets, daily range): BP systolic 102–149; BP diastolic 38–90
--- NOTE | 2024-02-13 04:31 | NUR ---
SHIFT SUMMARY PT ALERT ORIENTED X 4 CALLS APPROPRIATELY. VSS ON 2L VIA NC SATTING AT 98%. REMAINS ON A CONTINUOUS PULSE OX. SHE GOT A BED BATH TONITE WITH A FULL LINEN CHANGE. POWDER WAS APPLIED TO REDNESS ON ZACHARY AREA AND UNDER ABD FOLDS. C/O PAIN TO BACK MEDICATED WITH DILAUDID Q4HR PRN. ALSO C/O NAUSEA MEDICATED WITH ZOFRAN AND REGLAN. SUTURES INTACT TO RT STUMP WITH DRESSINGS INTACT. REMAINS ON ROCEPHIN AND DAPTOMYCIN. REMAINS A DAILY WEIGHT WITH A 1500 ML FLUID RESTRICTION. SHES NONCOMPLIANT WITH HER FLUID RESTRICTION AND FAMILY BRINGS HER IN SODAS. FS DONE AC AND HS WAS 250 LAST NIGHT. SHE RECEIVED BOWEL CARE LAST NIGHT AND HAD A XL BM. PICC LINE INTACT TO HER RT ARM, POWER GLIDE TO HER LT ARM AND PERMA CATH INTACT TO HER CHEST. REMAINS ON CONTACT ISOLATION R/T MRSA IN HER WOUND. SHES CURRENTLY RESTING IN BED WITH CALL LIGHT IN REACH
[2024-02-13 05:21] LABS: BASOPHILS ABSOLUTE AUTO 0.04 K/mm3 (0.00-0.23); BASOPHILS PERCENT AUTO 1 % (0-2); EOSINOPHILS ABSOLUTE AUTO 0.31 K/mm3 (0.00-0.68); EOSINOPHILS PERCENT AUTO 6 % (0-6); Hematocrit 27.4 % (33.0-51.0); Hemoglobin 8.5 g/dL (11.5-16.0); IMMATURE GRAN ABSOLUTE AUTO 0.02 K/mm3 (0.00-0.10); IMMATURE GRAN PERCENT AUTO 0 % (0-1); LYMPHOCYTES PERCENT AUTO 12 % (21-46); MONOCYTES ABSOLUTE AUTO 0.31 K/mm3 (0.16-1.47); MONOCYTES PERCENT AUTO 6 % (4-13); Mean Corpuscular HGB 28.1 pg (26.0-34.0); Mean Corpuscular Volume 91 fL (80-100); Mean Platelet Volume 11.3 fL (9.1-12.4); NEUTROPHILS ABSOLUTE AUTO 3.86 K/mm3 (1.96-9.15); NEUTROPHILS PERCENT AUTO 75 % (41-73); Platelet Count 178 K/mm3 (150-400); RDW Coefficient Variation 14.7 % (11.7-14.2); RDW Standard Deviation 48.7 fL (35.1-46.3); Red Blood Cell Count 3.02 M/mm3 (3.80-5.20); White Blood Cell Count 5.14 K/mm3 (4.00-11.30)
[2024-02-13 05:57] LABS: Albumin, Blood 3.3 g/dL (3.4-5.0); Anion Gap 12 mmol/L (3-11); Blood Urea Nitrogen 59 mg/dL (8-24); Bun/Creatinine Ratio 9.8 (12.0-20.0); CO2, Blood 29 mmol/L (21-32); Calcium, Blood 9.6 mg/dL (8.5-10.1); Chloride, Blood 98 mmol/L (98-108); Creatinine, Blood 5.99 mg/dL (0.40-1.00); Glomerular Filtration Rate 8 (60-); Glucose, Blood 216 mg/dL (70-99); Magnesium, Blood 2.7 mg/dL (1.6-2.4); Phosphorus, Blood 3.1 mg/dL (2.5-4.9); Potassium, Blood 4.5 mmol/L (3.5-5.5); Sodium, Blood 134 mmol/L (136-145)
[2024-02-13] MEDS ORDERED: Anticoagulant Sod Citrate Soln 3 ML SYR INJ PRN (07:10)
--- NOTE | 2024-02-13 15:19 | NUR ---
SHIFT SUMMARY PT WOKE FOR SHIFT REPORT, NOT USING CPAP DURING THE NIGHT. DIALYSIS PT WITH AN INFECTED RLE STUMP. PT IS NONCOMPLIANT WITH DIABETIC DIET AND FLUID RESTRICTION. PT HAS BOTTLES OF SODA AND DRINKS IN HER BAG THAT SHE DRINKS FROM [facility]YOND PO FLUID AMOUNT. PT IS MORBIDLY OBESE, REFUSING TO BE REPOSITIONED OFF BUTTOCKS OR TO ALLOW SKIN CHECK ASSESSMENT. PT TAKEN DOWN FOR DIALYSIS AT O900 TODAY; NO DIALYSIS TO BE DONE TOMORROW, PER PROVISIONING SPECIALIST. PT MEDICATED PER EMAR FOR C/O PAIN TO R STUMP AND BACK. LLE VERY DUSKY WITH MARLINE WRAP IN PLACE. PT ABLE TO MAKE NEEDS KNOWN. CALL LT IN REACH.
--- NOTE | 2024-02-13 18:40 | NUR ---
PT VERY NONCOMPLIANT WITH DIABETIC DIET AND FLUID RESTRICTION. PT'S SON BRINGING IN DINNER TONIGHT AND ANOTHER 6 PK OF BOTTLES OF COKE FOR PT'S BAG. PT HAS DRANK SEVERAL KNOWN BOTTLES THRU OUT THE DAY WELL FLUIDS GIVEN BY STAFF AND ON MEAL TRAY. DRSG TO BUTTOCKS CHANGED. PT INCONTINENT OF SM AMT OF URINE, BUT DOES NOT KNOW AND DOES NOT ALLOW STAFF TO CHECK VERY OFTEN. PT STATES THAT SHE IS A BIG GIRL AND DOES NOT NEED TO BE BABYSITTED. INFECTION CONTROL COORDINATOR AND THIS RN ATTEMPTED TO EDUCATE; UNSUCCESSFUL.
[2024-02-13] MEDS ORDERED: Insulin Glargine-Yfgn 100 Unit/mL 3 ML SYR SC SCH (21:00)
[2024-02-14 03:36] VITALS: BP 107/60
--- NOTE | 2024-02-14 04:49 | NUR ---
SHIFT SUMMARY PT ALERT ORIENTED ABLE TO VERBALIZE HER NEEDS CALLS APPROPRIATELY. REMAINS ON BED REST. SUTURES INTACT TO HER RT AKA INFECTION SITE. REMAINS ON ROCEPHIN AND DAPTOMYCIN ORDERED. C/O BACK PAIN AND NAUSEA. MEDICATED WITH DILAUDIA ZOFRAN AND REGLAN. REMAINS ON A CONTINUOUS PULSE OX VSS SATTING AT 99% ON 2l VIA NC. SHES BEEN REFUSING TO USE HER CPAP AT NIGHT BUT DOES PUT ON HER O2 WHILE SLEEPING. SHE CONTINUES TO BE NONCOMPLIANT WITH HER FLUID RESTRICTION AND HER FAMILY BRINGS HER IN SODAS AND FOODS THAT SHES NOT SUPPOSED TO HAVE. SHE HAS A PICC LINE TO HER RT ARM, POWER GLIDE TO HER LT ARM AND A VIC CATH TO HER RT CHEST. DRESSINGS ARE INTACT TO HER SORES AND ABRASIONS ON HER BUTTOCKS. REMAINS ON STRICT I&O AND DAILY WEIGHTS. RESTING IN BED AT THIS TIME WITH CALL LIGHT IN REACH
[2024-02-14 05:50] LABS: Hematocrit 28.5 % (33.0-51.0); Hemoglobin 8.7 g/dL (11.5-16.0)
[2024-02-14 06:08] LABS: Albumin, Blood 3.2 g/dL (3.4-5.0); Anion Gap 10 mmol/L (3-11); Blood Urea Nitrogen 48 mg/dL (8-24); Bun/Creatinine Ratio 9.6 (12.0-20.0); CO2, Blood 30 mmol/L (21-32); Calcium, Blood 9.6 mg/dL (8.5-10.1); Chloride, Blood 99 mmol/L (98-108); Creatinine, Blood 4.99 mg/dL (0.40-1.00); Glomerular Filtration Rate 10 (60-); Glucose, Blood 392 mg/dL (70-99); Magnesium, Blood 2.5 mg/dL (1.6-2.4); Phosphorus, Blood 2.7 mg/dL (2.5-4.9); Potassium, Blood 4.6 mmol/L (3.5-5.5); Sodium, Blood 134 mmol/L (136-145)
[2024-02-14 07:52] VITALS: BP 116/54
[2024-02-14] MEDS ORDERED: Insulin Glargine-Yfgn 100 Unit/mL 3 ML SYR SC SCH (09:30)
[2024-02-14 16:37] VITALS: BP 137/61
--- NOTE | 2024-02-14 17:33 | NUR ---
SHIFT SUMMARY PT SLEEPING AT START OF SHIFT, NOT WANTING TO BE WOKE UP UNTIL AFTER 10:00 FOR MEDS OR BREAKFAST. VISITOR IN LATER THIS AM, SO PT WAS AWAKE WHEN DR YANCEY IN TO SEE HER TO DISCUSS PLAN OF CARE. POSSIBLE D/C TO HOME THURSDAY OR THURSDAY, WHEN IV ABX AVAILABLE. PT TO RECEIVE IV ROCEPHIN QD AND DAPTOMYCIN ON DIALYSIS DAYS. PT VERBALIZED UNDERSTANDING. FAMILY AT WHEN DR YANCEY EXPLAINED PLAN OF CARE. PT REMAINS NONCOMPLIANT WITH DIABETIC DIET AND FLUID RESTRICTION. PT'S SON BRINGING IN MORE FOOD AND DRINK TO LEAVE WITH PT. PT ALSO REFUSING TO BE CHK'D FOR INCONTINENCE UNTIL THIS EVENING. PT CLEANED AND LINENS CHANGED. NO BM AGAIN TODAY; BOWEL CARE GIVEN. PT MEDICATED THRU OUT THE DAY FOR C/O PAIN PER EMAR. PT'S SON AT CURRENTLY. DENIES FURTHER NEEDS AT THIS TIME. CALL LT IN REACH.
--- NOTE | 2024-02-14 18:31 | NUR ---
PT REFUSING DRSG CHANGE UNTIL NEXT MEDICATION DUE AND BECOMES EFFECTIVE. ATTEMPTED TO EXPLAIN THIS RN UNABLE TO STAY OVER THAT LONG. PT WANTING TO SLEEP EACH TIME MEDICATED AND NOT WANTING TO BE DISTURBED, MAKING IT DIFFICULT TO PROVIDE CARE NEEDED. REPORTING TO NOC RN, WHO AGREED TO CHANGE DRESSING.
[2024-02-14 19:37] VITALS: BP 131/47
[2024-02-15] VITALS (17 sets, daily range): BP systolic 97–158; BP diastolic 44–108
[2024-02-15 04:32] LABS: Hematocrit 28.2 % (33.0-51.0); Hemoglobin 8.8 g/dL (11.5-16.0)
[2024-02-15 05:06] LABS: Albumin, Blood 3.1 g/dL (3.4-5.0); Anion Gap 13 mmol/L (3-11); Blood Urea Nitrogen 61 mg/dL (8-24); Bun/Creatinine Ratio 10.2 (12.0-20.0); CO2, Blood 29 mmol/L (21-32); Calcium, Blood 9.6 mg/dL (8.5-10.1); Chloride, Blood 96 mmol/L (98-108); Glomerular Filtration Rate 8 (60-); Glucose, Blood 168 mg/dL (70-99); Magnesium, Blood 2.7 mg/dL (1.6-2.4); Phosphorus, Blood 2.8 mg/dL (2.5-4.9); Potassium, Blood 4.7 mmol/L (3.5-5.5); Sodium, Blood 133 mmol/L (136-145)
--- NOTE | 2024-02-15 05:29 | NUR ---
SHIFT SUMMARY PT ALERT ORIENTED CALLS APPROPRIATELY. SHE IS VERY NONCOMPLIANT WITH HER FLUID RESTRICTIONS. HER FAMILY BRINGS HER IN FOOD AND FLUIDS FROM HOME. SHES EDUCATED ON IT BUT REFUSES TO GO BY HER RESTRICTIONS. SHE GOT A BED BATH AND LINEN CHANGE LAST NIGHT. ALL DRESSINGS WERE CHANGED TO HER BUTTOCKS RT STUMP AND HER LT FOOT. RT STUMP AREA LOOKS GOOD WITH NO DRAINAGE. C/O BACK PAIN MEDICATED WITH DILAUDID FOR PAIN CONTROL. C/O NAUSEA AND TOOK REGLAN AND ZOFRAN. SHE HAS BEEN REFUSING TO USE HER CPAP AT NIGHT BUT WILL WEAR O2 AT 2L. VSS ON RA SATTING AT 98%. SHE HAS A PICC LINE TO HER RT ARM, POWER GLIDE TO HER LT ARM AND PERMA CATH TO HER RT CHEST. REMAINS ON A CONTINUOUS PULSE OX. SHE HAD A XLG BM LAST NIGHT. REMAINS ON ROCEPHIN AND DAPTOMYCIN ORDERED. REMAINS ON STRICT I&O BUT SHES NONCOMPLIANT. SHES SLEEPING IN BED AT THIS TIME WITH CALL LIGHT N REACH.
[2024-02-15] MEDS ORDERED: Anticoagulant Sod Citrate Soln 3 ML SYR INJ PRN (07:40)
--- NOTE | 2024-02-15 18:58 | NUR ---
SHIFT SUMMARY MS KERNS IS ORIENTATED X4. WENT TO DIALYSIS THIS MORNING AND TOLERATED IT WELL. C/O CONSTANT RIGHT LEG AND BACK PAIN WHICH IS LESSENED WITH REGULAR DILAUDID. C/O INTERMITTANT NAUSEA CONTROLLED WITH MEDICATIONS. PICC RUE AND POWERGLIDE LUE, RECIEVING IV ABX. WOUND DRESSINGS CHANGED ON BISQUE BRUSHER LAST NIGHT, NOT CHANGED TODAY. DRESSINGS C,D,I. FAMILY VISITED TODAY. BED LOW, CALL LIGHT IN REACH.
[2024-02-16] VITALS (13 sets, daily range): BP systolic 95–170; BP diastolic 41–98
--- NOTE | 2024-02-16 04:59 | NUR ---
SUMMARY: PT A/OX4, CALLS APPROPRIATELY TO SPECIFY NEEDS AND IS PLEASANT W/STAFF. IV ABX PROVIDED PER EMAR AND PT CONT'S TO C/O NAGGING NAUSEA THAT SHE CONTRIBUTES TO THEM. PRN ANTIEMETICS RECEIVED FOR TOLERABLE RELIEF. PT ALSO REPORTED ITCHING R/T DIALYSIS W/IV BENEDRYL PROVIDED PER REQUEST. SHE DESCRIBES CONSTANT R.STUMP AND PHANTOM PAIN W/PRN DILUADID RECEIVED FOR ADEQUATE CONTROL. MEPILEXES CHANGED TO R.STUMP AND BUTTOCKS AND DX CHANGED TO L.FOOT WOUNDS PER ORDERS. SHE WAS MOSTLY COOPERATIVE W/CARE BUT OCC.REFUSES REPOSITIONING. PT ALSO DOESN'T TYPICALLY ADHERE TO CONSISTENT CARB DIET DESPITE ELEVATED CBG'S AND REFUSES JENN DESPITE EDUCATION RE: WOUND HEELING. NO ACUTE CHANGES, VSS/AFEBRILE. PROBABLE D/C TODAY. WCTM AND REPORT TO DAY RN.
[2024-02-16 06:56] LABS: Hematocrit 29.8 % (33.0-51.0); Hemoglobin 9.1 g/dL (11.5-16.0)
[2024-02-16 07:16] LABS: Albumin, Blood 3.1 g/dL (3.4-5.0); Anion Gap 12 mmol/L (3-11); Blood Urea Nitrogen 52 mg/dL (8-24); Bun/Creatinine Ratio 9.9 (12.0-20.0); CO2, Blood 31 mmol/L (21-32); Calcium, Blood 9.3 mg/dL (8.5-10.1); Chloride, Blood 94 mmol/L (98-108); Creatinine, Blood 5.25 mg/dL (0.40-1.00); Glomerular Filtration Rate 9 (60-); Glucose, Blood 262 mg/dL (70-99); Magnesium, Blood 2.7 mg/dL (1.6-2.4); Phosphorus, Blood 3.2 mg/dL (2.5-4.9); Potassium, Blood 4.6 mmol/L (3.5-5.5); Sodium, Blood 132 mmol/L (136-145)
[2024-02-16] MEDS ORDERED: Anticoagulant Sod Citrate Soln 3 ML SYR INJ PRN (07:20)
[2024-02-16] MEDS ORDERED: DiphenhydrAMINE HCl 50 MG/ML 1ML Vial IV ONE (08:50)
[2024-02-16] MEDS ORDERED: METO5A PO (12:02)
[2024-02-16] MEDS ORDERED: MICONAZOLE NIT130 GM TOP (12:03)
[2024-02-16] MEDS ORDERED: ONDA4ODT MM (12:03)
[2024-02-16] MEDS ORDERED: GABA300 PO (12:05)
[2024-02-16] MEDS ORDERED: HYDR1TAB94 PO (12:08)
--- NOTE | 2024-02-16 13:52 | NUR ---
PT DISCHARGED HOME WITH HOME HEALTH. DISCHARGE INSTRUCTIONS DISCUSSED WITH PT, PT RIDE SET UP FOR 1430. PT WANTED TO BE TAKEN DOWN EARLY. PT IS OWN WHEEL CHAIR.
== END 2024-02-16 13:37 | disposition home health service (06) | DRG 463 ==
LOC: ER 14:33 → MEDS 14:34 → PCU 02-05 16:34 → MEDS 02-07 08:41
PROVIDERS: Family Medicine; Internal Medicine; Internal Medicine Nephrology; Nurse Practitioner Acute Care; Specialist; Student in an Organized Health Care Education/Training Program; ADMIT Internal Medicine
PROC: 5A09357 Assistance with Respiratory Ventilation, Less than 24 Consecutive Hours, Continuous Positive Airway Pressure (ICD-10-PCS; 2024-02-02)
PROC: 0JBN0ZZ Excision of Right Lower Leg Subcutaneous Tissue and Fascia, Open Approach (ICD-10-PCS; principal; 2024-02-04)
PROC: 04FS3ZZ Fragmentation of Left Posterior Tibial Artery, Percutaneous Approach (ICD-10-PCS; 2024-02-05)
PROC: 047Q3ZZ Dilation of Left Anterior Tibial Artery, Percutaneous Approach (ICD-10-PCS; 2024-02-05)
PROC: 02HV33Z Insertion of Infusion Device into Superior Vena Cava, Percutaneous Approach (ICD-10-PCS; 2024-02-05)
DX: T87.43 Infection of amputation stump, right lower extremity (principal); N18.6 End stage renal disease; E10.52 Type 1 diabetes mellitus with diabetic peripheral angiopathy with gangrene; N25.81 Secondary hyperparathyroidism of renal origin; I13.2 Hypertensive heart and chronic kidney disease with heart failure and with stage 5 chronic kidney disease, or end stage renal disease; E87.1 Hypo-osmolality and hyponatremia; F11.20 Opioid dependence, uncomplicated; I50.32 Chronic diastolic (congestive) heart failure; Z68.41 Body mass index [BMI] 40.0-44.9, adult; L03.115 Cellulitis of right lower limb; E66.2 Morbid (severe) obesity with alveolar hypoventilation; I70.235 Atherosclerosis of native arteries of right leg with ulceration of other part of foot; L97.519 Non-pressure chronic ulcer of other part of right foot with unspecified severity; Z66 Do not resuscitate; Z99.2 Dependence on renal dialysis; E10.621 Type 1 diabetes mellitus with foot ulcer; E03.9 Hypothyroidism, unspecified; L97.529 Non-pressure chronic ulcer of other part of left foot with unspecified severity; F41.9 Anxiety disorder, unspecified; G89.4 Chronic pain syndrome; E10.40 Type 1 diabetes mellitus with diabetic neuropathy, unspecified; E10.22 Type 1 diabetes mellitus with diabetic chronic kidney disease; F32.9 Major depressive disorder, single episode, unspecified; D63.1 Anemia in chronic kidney disease; J44.9 Chronic obstructive pulmonary disease, unspecified; E87.6 Hypokalemia; M19.90 Unspecified osteoarthritis, unspecified site; I45.4 Nonspecific intraventricular block; E83.52 Hypercalcemia; E10.649 Type 1 diabetes mellitus with hypoglycemia without coma; E87.5 Hyperkalemia; E83.39 Other disorders of phosphorus metabolism; E83.41 Hypermagnesemia; I95.9 Hypotension, unspecified; Z88.0 Allergy status to penicillin; Z98.890 Other specified postprocedural states; Z79.2 Long term (current) use of antibiotics; Z79.890 Hormone replacement therapy; Z79.899 Other long term (current) drug therapy; Z86.19 Personal history of other infectious and parasitic diseases; Z86.14 Personal history of Methicillin resistant Staphylococcus aureus infection; Z89.611 Acquired absence of right leg above knee; Z88.8 Allergy status to other drugs, medicaments and biological substances; Z87.440 Personal history of urinary (tract) infections; Z79.82 Long term (current) use of aspirin; Z79.4 Long term (current) use of insulin; Z87.891 Personal history of nicotine dependence; Z90.710 Acquired absence of both cervix and uterus; Z74.01 Bed confinement status
CPT/HCPCS: 36415; 73560-RT; 73630; 75625; 75716; 75774; 76937; 80053; 80069; 80202; 82947; 83605; 83735; 85014; 85018; 85025; 85027; 87040; 87070; 87075; 87077; 87186; 87205; 93922; 94640; 94660; 94664; 94760; 94762; 96365; 96366; 96375; 96376; 99152; 99153; 99285-25; A9270; C1725; C1751; C1760; C1769; C1887; C1894; C9772; G0378; J0692; J0696; J0878; J0881; J1171; J1200; J1644; J1815; J2250; J2405; J2704; J2765; J3010; J3370; J7030; J7040; J7050; J7060; P9047; Q9967

== ENCOUNTER 2024-03-10 04:33 | Inpatient (IN) | payer MEDICARE, OTHER ==
[2024-03-10] VITALS (31 sets, daily range): BP systolic 120–229; BP diastolic 61–161
[~2024-03-10] VITALS: Ht 182.9 cm; Wt 138.3 kg
[~2024-03-10 04:33] MED LIST changes: -ALBU2.5V5 INH; +ALBU2.5V5 NEB; +BANOPHEN25 MG PO; +BUSP10 PO; -BUSPIRONE HCL5 M6 PO; +HYDR1TAB94 PO; +MICONAZOLE NIT130 GM TOP; +ONDA4ODT MM
[2024-03-10 04:53] LABS: Base Excess Venous 4.8 mmol/L; Bicarbonate Venous 28.2 mmol/L (24.0-30.0); PCO2 Venous 43.5 mmHg (38-42); pH Blood Venous 7.43 (7.34-7.37)
[2024-03-10 04:58] LABS: BASOPHILS ABSOLUTE AUTO 0.05 K/mm3 (0.00-0.23); BASOPHILS PERCENT AUTO 1 % (0-2); EOSINOPHILS ABSOLUTE AUTO 0.49 K/mm3 (0.00-0.68); EOSINOPHILS PERCENT AUTO 10 % (0-6); Hematocrit 31.2 % (33.0-51.0); Hemoglobin 9.4 g/dL (11.5-16.0); IMMATURE GRAN ABSOLUTE AUTO 0.02 K/mm3 (0.00-0.10); IMMATURE GRAN PERCENT AUTO 0 % (0-1); LYMPHOCYTES ABSOLUTE AUTO 0.35 K/mm3 (0.84-5.20); LYMPHOCYTES PERCENT AUTO 7 % (21-46); MONOCYTES ABSOLUTE AUTO 0.27 K/mm3 (0.16-1.47); MONOCYTES PERCENT AUTO 5 % (4-13); Mean Corpuscular HGB 28.9 pg (26.0-34.0); Mean Corpuscular HGB Conc 30.1 g/dL (31.5-36.5); Mean Corpuscular Volume 96 fL (80-100); Mean Platelet Volume 10.7 fL (9.1-12.4); NEUTROPHILS ABSOLUTE AUTO 3.96 K/mm3 (1.96-9.15); NEUTROPHILS PERCENT AUTO 77 % (41-73); Platelet Count 214 K/mm3 (150-400); RDW Coefficient Variation 16.8 % (11.7-14.2); RDW Standard Deviation 59.7 fL (35.1-46.3); Red Blood Cell Count 3.25 M/mm3 (3.80-5.20); White Blood Cell Count 5.14 K/mm3 (4.00-11.30)
[2024-03-10 05:25] LABS: Albumin, Blood 2.7 g/dL (3.4-5.0); Albumin/Globulin Ratio 0.7 (0.8-1.8); Bilirubin, Total 0.5 mg/dL (0.1-1.0); Bun/Creatinine Ratio 8.7 (12.0-20.0); Calcium, Blood 8.7 mg/dL (8.5-10.1); Creatinine, Blood 8.39 mg/dL (0.40-1.00); Globulin, Blood 4.1 g/dL (2.2-4.0); Total Protein, Blood 6.8 g/dL (6.4-8.2)
[2024-03-10] MEDS ORDERED: DiphenhydrAMINE HCl 50 MG/ML 1ML Vial IV ONE (05:30)
[2024-03-10] MEDS ORDERED: Morphine Sulfate 4 MG/1 ML Injection IV ONE (05:30)
[2024-03-10] MEDS ORDERED: FLU VACC TS2024-25(6MOS UP)/PF 45 MCG/0.5 ML SYRINGE IM PRN (08:15)
[2024-03-10] MEDS ORDERED: Sodium Zirconium Cyclosilicate 10 GM Packet PO SCH (08:20)
[2024-03-10] MEDS ORDERED: Albuterol 2.5 MG/3 ML VIAL INH PRN (08:20)
[2024-03-10] MEDS ORDERED: OxyCODONE 5 mg/Acetamin 325 mg TABLET PO PRN (08:25)
[2024-03-10] MEDS ORDERED: Metoclopramide HCl 10 MG Tab PO PRN (08:25)
[2024-03-10] MEDS ORDERED: Mometasone Furoate Inhaler 220 mcg 14 ACT INH SCH (08:25)
[2024-03-10] MEDS ORDERED: HyDROXyzine HCl 25 MG Tab PO PRN (08:25)
[2024-03-10] MEDS ORDERED: HydrALAZINE HCl 20 MG / ML 1ML Vial IV PRN (08:30)
[2024-03-10] MEDS ORDERED: Sevelamer Carbonate 800 MG Tab PO SCH (08:30)
[2024-03-10] MEDS ORDERED: Calcium Acetate 667 MG Gel Cap PO SCH (08:30)
[2024-03-10] MEDS ORDERED: DiphenhydrAMINE HCl 50 MG Cap PO PRN (08:50)
[2024-03-10] MEDS ORDERED: HYDROCODONE-AC1 EAC7 PO (08:52)
[2024-03-10] MEDS ORDERED: Ofloxacin 0.3% Opth Soln 5 ML BOTHEYES SCH (09:00)
[2024-03-10] MEDS ORDERED: BusPIRone HCl 10 MG Tab PO SCH (09:00)
[2024-03-10] MEDS ORDERED: Docusate Sodium 100 MG Cap PO SCH (09:00)
[2024-03-10] MEDS ORDERED: FLUoxetine HCL 20 MG CAP PO SCH (09:00)
[2024-03-10] MEDS ORDERED: Furosemide 40 MG Tab PO SCH (09:00)
[2024-03-10] MEDS ORDERED: Sennosides 8.6 MG Tab PO SCH (09:00)
[2024-03-10] MEDS ORDERED: AmLODIPine Besylate 5 MG Tab PO SCH ×2 (09:00)
[2024-03-10] MEDS ORDERED: OxyCODONE 10/Acetamin 325 TABLET PO PRN (09:25)
[2024-03-10] MEDS ORDERED: Anticoagulant Sod Citrate Soln 3 ML SYR INJ PRN (09:30)
[2024-03-10] MEDS ORDERED: Furosemide 10 MG/ML 10ML Vial IV SCH (09:35)
[2024-03-10] MEDS ORDERED: Insulin Regular 100 UNIT/ML 10ML Vial SC SCH (11:30)
[2024-03-10] MEDS ORDERED: Heparin Sodium 5000 Units/ML 1ML MDV SC SCH (14:35)
[2024-03-10] MEDS ORDERED: Mometasone/Formoterol MDI 100/5 mcg 13 GM INH SCH (16:05)
[2024-03-10] MEDS ORDERED: Ondansetron 4 MG SoluTab MM PRN (18:35)
--- NOTE | 2024-03-10 19:32 | NUR ---
ADMISSION NOTE/SHIFT SUMMARY PATIENT BROUGHT UP FROM ER AFTER DIALYSIS TREATMENT. PATIENT IS ON A SPECIALTY AIR BED DUE TO BEING BEDBOUND AT BASELINE. PATIENT IS ON 2L NC, WEARS 2L NC PRN AT HOME WITH SHORTNESS OF BREATH. SON IS CAREGIVER BUT WORKS A LIQUID COMPOUNDER PER PATIENT AND WHEN HE IS NOT THERE TO HELP HER TURN SHE IS NOT ABLE TO DO SO. PATIENT HAS LARGE REDDENNED AREA/EXCORIATION TO BACK/BUTTOCKS AND UPPER THIGHS ABRASION TO RIGHT THIGH AND UNSTAGEABLE WOUNDS TO LEFT FOOT. WOUNDS WERE PHOTOGRAHED AND CLEANSED AND DRESSED. MED REC COMPLETED. NOTIFIED DR DUARTE OF CHANGES TO PREVIOUS MED REC AND OF TELE MONITOR NOTIFYING ME OF QT PROLONGATION, DR DUARTE ORDERED A EKG WHICH WAS COMPTED JUST PRIOR TO SHIFT CHANGE. PATIENT ABLE TO MAKE NEEDS KNOWN. INCONTINENT OF BOWEL AND BLADDER. CALL LIGHT WITHIN REACH WELL BED REMOTE.
[2024-03-10] MEDS ORDERED: Darbepoetin Alfa In Albumn Sol 60 MCG/0.3 ML Syringe SC ONE (20:05)
[2024-03-10] MEDS ORDERED: Gabapentin 300 MG Cap PO SCH (21:00)
[2024-03-10] MEDS ORDERED: Insulin Glargine-Yfgn 100 Unit/mL 3 ML SYR SC SCH ×2 (21:00)
[2024-03-10] MEDS ORDERED: Midodrine 5 MG Tab PO SCH (21:00)
[2024-03-11] VITALS (16 sets, daily range): BP systolic 90–158; BP diastolic 40–99
[2024-03-11] MEDS ORDERED: Levothyroxine Sodium 0.125 MG Tab PO SCH (06:00)
[2024-03-11] MEDS ORDERED: Pantoprazole Sodium 40 MG Tab PO SCH (06:00)
[2024-03-11 06:22] LABS: BASOPHILS ABSOLUTE AUTO 0.04 K/mm3 (0.00-0.23); BASOPHILS PERCENT AUTO 1 % (0-2); EOSINOPHILS PERCENT AUTO 13 % (0-6); Hematocrit 28.7 % (33.0-51.0); Hemoglobin 8.6 g/dL (11.5-16.0); IMMATURE GRAN ABSOLUTE AUTO 0.01 K/mm3 (0.00-0.10); IMMATURE GRAN PERCENT AUTO 0 % (0-1); LYMPHOCYTES ABSOLUTE AUTO 0.48 K/mm3 (0.84-5.20); LYMPHOCYTES PERCENT AUTO 12 % (21-46); MONOCYTES ABSOLUTE AUTO 0.28 K/mm3 (0.16-1.47); MONOCYTES PERCENT AUTO 7 % (4-13); Mean Corpuscular HGB 28.8 pg (26.0-34.0); Mean Corpuscular Volume 96 fL (80-100); Mean Platelet Volume 10.8 fL (9.1-12.4); NEUTROPHILS ABSOLUTE AUTO 2.67 K/mm3 (1.96-9.15); NEUTROPHILS PERCENT AUTO 67 % (41-73); Platelet Count 184 K/mm3 (150-400); RDW Coefficient Variation 16.6 % (11.7-14.2); RDW Standard Deviation 58.8 fL (35.1-46.3); Red Blood Cell Count 2.99 M/mm3 (3.80-5.20); White Blood Cell Count 3.98 K/mm3 (4.00-11.30)
--- NOTE | 2024-03-11 06:27 | NUR ---
Pt with continued pain in back, and puritis all over. Pt non- compliant with diet. BG 77, and then 80 after eating and then lantus administered. slept well with CPAP on other gil uses O2 at 2L. tele is NSR with BBB per tele and ECG. WOC consult placed for assist with multiple wounds/excoriation/rash. Pt with anuria this shift after HD on 03/10. VS WNL. oxycodone and benedryl used x2, administered together.
[2024-03-11 06:50] LABS: Albumin, Blood 2.6 g/dL (3.4-5.0); Anion Gap 12 mmol/L (3-11); Blood Urea Nitrogen 59 mg/dL (8-24); Bun/Creatinine Ratio 7.9 (12.0-20.0); CO2, Blood 31 mmol/L (21-32); Chloride, Blood 100 mmol/L (98-108); Creatinine, Blood 7.46 mg/dL (0.40-1.00); Glomerular Filtration Rate 6 (60-); Glucose, Blood 66 mg/dL (70-99); Magnesium, Blood 3.1 mg/dL (1.6-2.4); Phosphorus, Blood 6.4 mg/dL (2.5-4.9); Potassium, Blood 4.8 mmol/L (3.5-5.5); Sodium, Blood 138 mmol/L (136-145)
[2024-03-11] MEDS ORDERED: Anticoagulant Sod Citrate Soln 3 ML SYR INJ PRN (07:30)
[2024-03-11] MEDS ORDERED: Calcium Acetate 667 MG Gel Cap PO SCH (08:30)
[2024-03-11] MEDS ORDERED: Heparin Sodium 5000 Units/ML 1ML MDV SC SCH (09:00)
[2024-03-11] MEDS ORDERED: Midodrine 5 MG Tab PO SCH (09:00)
[2024-03-11] MEDS ORDERED: Empagliflozin 10 MG TAB PO SCH (09:00)
[2024-03-11] MEDS ORDERED: Furosemide 10 MG/ML 10ML Vial IV SCH (09:00)
[2024-03-11] MEDS ORDERED: Furosemide 80 MG Tab PO SCH (09:00)
[2024-03-11] MEDS ORDERED: Losartan Potassium 25 MG Tab PO SCH (09:00)
--- NOTE | 2024-03-11 11:47 | NUR ---
PATIENT C/O DRY, ITCHING EYES, HAD STARTED OFLOXACIN 1gtts OU WHILE IN ED. T.O. FROM DR. DUARTE PROCEED WITH 1gtts q4h x2 DAYS.
[2024-03-11] MEDS ORDERED: Ofloxacin 0.3% Opth Soln 5 ML BOTHEYES SCH (14:00)
[2024-03-11] MEDS ORDERED: ALBU90OI INH (14:28)
--- NOTE | 2024-03-11 19:40 | NUR ---
END OF SHIFT SUMMARY: A&Ox4. PLEASANT AND COOPERATIVE WITH CARE. CALLS APPROPRIATELY AND IS ABLE TO ADVOCATE NEEDS EFFECTIVELY. ANURIA SECONDARY TO CKD c HD. CONTINENT OF BOWEL, BUT NONAMBULATORY AND OPTS FOR BED CHANGES. NON-AMBULATORY. MEDICATIONS WHOLE WITH FLUIDS. PRN PAIN MEDICATION ADMINISTERED q4h PRN. PRN METOCLOPRAMIDE PRN AC. DIALYSIS TODAY c 3500mL FLUID REMOVAL. BED IN LOWEST POSITION, CALL LIGHT WITHIN REACH, ALL NEEDS MET. REPORT TO ONCOMING NURSE.
[2024-03-11] MEDS ORDERED: Arginine/Glutamine/Calcium Hmb 1 Packet PO SCH (21:00)
[2024-03-12] VITALS (16 sets, daily range): BP systolic 103–157; BP diastolic 40–101
[2024-03-12 05:47] LABS: Hematocrit 27.8 % (33.0-51.0); Hemoglobin 8.4 g/dL (11.5-16.0)
[2024-03-12 06:20] LABS: Albumin, Blood 2.7 g/dL (3.4-5.0); Anion Gap 11 mmol/L (3-11); Blood Urea Nitrogen 45 mg/dL (8-24); Bun/Creatinine Ratio 7.7 (12.0-20.0); CO2, Blood 29 mmol/L (21-32); Calcium, Blood 8.7 mg/dL (8.5-10.1); Chloride, Blood 101 mmol/L (98-108); Creatinine, Blood 5.84 mg/dL (0.40-1.00); Glomerular Filtration Rate 8 (60-); Glucose, Blood 137 mg/dL (70-99); Magnesium, Blood 2.7 mg/dL (1.6-2.4); Phosphorus, Blood 5.1 mg/dL (2.5-4.9); Potassium, Blood 4.7 mmol/L (3.5-5.5); Sodium, Blood 136 mmol/L (136-145)
--- NOTE | 2024-03-12 07:09 | NUR ---
SHIFT SUMMARY AT START OF SHIFT, PT LYING IN BED VISITING WITH HER SON. PT IN GOOD SPIRITS. SHE MENTIONED TO THIS RN THAT SHE WAS HAVING PRETTY BAD PHANTOM PAINS TONIGHT. PT MEDICATED WITH GABAPENTIN AND OXYCODONE PER EMAR. PT SLEEPING SOUNDLY WITH CPAP. AWOKE APPROX 0100 ASKING FOR MORE PAIN MEDICATION. PT REPOSITIONED IN BED AND BARRIER CREAM AND POWDER APPLIED TO LEFT BUTTOX AND SACRUM. PT MEDICATED AND SLEEPING SOUNDLY WITH HER CPAP ON. APPROX 0635, PT STATED I THINK THAT HUMIDIFIER GAVE ME A SORE THROAT. THIS RN INFORMED HER THAT REPORT WOULD BE PASSED ON TO DAY SHIFT. ALL LINES CHECKED AND INTACT.
[2024-03-12] MEDS ORDERED: Anticoagulant Sod Citrate Soln 3 ML SYR INJ PRN (07:25)
[2024-03-12] MEDS ORDERED: LOSA25 PO (09:30)
--- NOTE | 2024-03-12 15:13 | NUR ---
PT REPORTS SWEATY HEAD, AFTER B/M. STATES USUALLY HAPPENS IF LOW BP OR LOW CBG. CBG 183, BP 138/63 P 83. EXPLAINED MAY JUST BE VAGAL RESPONSE. WILL WATCH. CALLED DR DUARTE. AGREES LIKELY ISSUE. NO NEW ORDRES.
--- NOTE | 2024-03-12 16:26 | NUR ---
SHEILAE REVIEWED WITH PT AND SON. IV AND TELE REMOVED BY AIDE. HARD SCRIPT HANDED TO PT. SHE SIGNED FOR RECEIPT ON DISCHARGE FORM. PT VERBLIZED UNDERSTANDING MEDS AND INSTRUCT. USED LIFT TO GET PT TO WHEELCHAIR [facility]SP[facility] HERE. OUT AT 162
== END 2024-03-12 16:00 | disposition home or self-care (01) | DRG 640 ==
LOC: ER 04:33 → MEDS 08:10 → ERHOLD 08:10 → MEDS 14:57
PROVIDERS: Internal Medicine Nephrology; Student in an Organized Health Care Education/Training Program; ADMIT Internal Medicine
PROC: 5A09357 Assistance with Respiratory Ventilation, Less than 24 Consecutive Hours, Continuous Positive Airway Pressure (ICD-10-PCS; principal; 2024-03-11)
DX: E87.70 Fluid overload, unspecified (principal); N18.6 End stage renal disease; I13.2 Hypertensive heart and chronic kidney disease with heart failure and with stage 5 chronic kidney disease, or end stage renal disease; Z68.41 Body mass index [BMI] 40.0-44.9, adult; E66.2 Morbid (severe) obesity with alveolar hypoventilation; I50.32 Chronic diastolic (congestive) heart failure; N25.81 Secondary hyperparathyroidism of renal origin; F41.9 Anxiety disorder, unspecified; I16.0 Hypertensive urgency; E03.9 Hypothyroidism, unspecified; F32.9 Major depressive disorder, single episode, unspecified; F17.210 Nicotine dependence, cigarettes, uncomplicated; D63.1 Anemia in chronic kidney disease; J44.9 Chronic obstructive pulmonary disease, unspecified; E10.22 Type 1 diabetes mellitus with diabetic chronic kidney disease; E10.51 Type 1 diabetes mellitus with diabetic peripheral angiopathy without gangrene; E10.40 Type 1 diabetes mellitus with diabetic neuropathy, unspecified; Z91.158 Patient's noncompliance with renal dialysis for other reason; E83.39 Other disorders of phosphorus metabolism; E88.09 Other disorders of plasma-protein metabolism, not elsewhere classified; G89.4 Chronic pain syndrome; Z99.2 Dependence on renal dialysis; M19.90 Unspecified osteoarthritis, unspecified site; H10.9 Unspecified conjunctivitis; Z89.611 Acquired absence of right leg above knee; Z98.890 Other specified postprocedural states; Z90.710 Acquired absence of both cervix and uterus; Z79.890 Hormone replacement therapy; Z79.899 Other long term (current) drug therapy; Z88.0 Allergy status to penicillin; Z86.14 Personal history of Methicillin resistant Staphylococcus aureus infection; Z89.411 Acquired absence of right great toe; Z79.4 Long term (current) use of insulin
CPT/HCPCS: 36415; 71045; 71260; 80053; 80069; 82803; 82947; 83735; 83880; 84484; 85014; 85018; 85025; 93005; 93010; 94640; 94660; 94664; 94762; 96372; 96374; 96375; 99285-25; A9270; G0257; G0378; J0881; J1200; J1644; J1815; J1940; J2270; Q9967

== ENCOUNTER 2024-03-19 19:19 | Inpatient (IN) | payer MEDICARE, OTHER ==
[~2024-03-19] VITALS: Ht 167.6 cm; Wt 164.0 kg
[~2024-03-19 19:19] MED LIST changes: +HYDROCODONE-AC1 EAC7 PO
[2024-03-19 19:48] LABS: BASOPHILS ABSOLUTE AUTO 0.03 K/mm3 (0.00-0.23); BASOPHILS PERCENT AUTO 1 % (0-2); EOSINOPHILS ABSOLUTE AUTO 0.03 K/mm3 (0.00-0.68); EOSINOPHILS PERCENT AUTO 1 % (0-6); Hemoglobin 10.4 g/dL (11.5-16.0); IMMATURE GRAN ABSOLUTE AUTO 0.09 K/mm3 (0.00-0.10); IMMATURE GRAN PERCENT AUTO 2 % (0-1); LYMPHOCYTES ABSOLUTE AUTO 0.39 K/mm3 (0.84-5.20); LYMPHOCYTES PERCENT AUTO 8 % (21-46); MONOCYTES ABSOLUTE AUTO 0.09 K/mm3 (0.16-1.47); MONOCYTES PERCENT AUTO 2 % (4-13); Mean Corpuscular HGB 28.7 pg (26.0-34.0); Mean Corpuscular HGB Conc 30.6 g/dL (31.5-36.5); Mean Corpuscular Volume 94 fL (80-100); Mean Platelet Volume 10.5 fL (9.1-12.4); NEUTROPHILS ABSOLUTE AUTO 4.45 K/mm3 (1.96-9.15); NEUTROPHILS PERCENT AUTO 88 % (41-73); Platelet Count 233 K/mm3 (150-400); RDW Coefficient Variation 15.9 % (11.7-14.2); RDW Standard Deviation 54.4 fL (35.1-46.3); Red Blood Cell Count 3.62 M/mm3 (3.80-5.20); White Blood Cell Count 5.08 K/mm3 (4.00-11.30)
[2024-03-19 19:50] LABS: Base Excess Venous 4.9 mmol/L; Bicarbonate Venous 28.6 mmol/L (24.0-30.0); PCO2 Venous 34 mmHg (38-42); pH Blood Venous 7.52 (7.34-7.37)
[2024-03-19 20:10] LABS: Albumin, Blood 3.3 g/dL (3.4-5.0); Albumin/Globulin Ratio 0.6 (0.8-1.8); Bilirubin, Total 0.5 mg/dL (0.1-1.0); Bun/Creatinine Ratio 6.1 (12.0-20.0); Calcium, Blood 9.5 mg/dL (8.5-10.1); Creatinine, Blood 3.09 mg/dL (0.40-1.00); Globulin, Blood 5.3 g/dL (2.2-4.0); Potassium, Blood 3.3 mmol/L (3.5-5.5); Total Protein, Blood 8.6 g/dL (6.4-8.2)
[2024-03-19 20:24] LABS: Influenza A, PCR NEGATIVE (NEGATIVE); Influenza B, PCR NEGATIVE (NEGATIVE); Resp Syncytial Virus, PCR NEGATIVE (NEGATIVE); SARS-Cov-2 (COVID-19) PCR, MMC NEGATIVE (NEGATIVE)
[2024-03-20] VITALS (19 sets, daily range): BP systolic 86–171; BP diastolic 55–94
[2024-03-20] MEDS ORDERED: MethylPREDNISolone Sod Succ 125 MG Vial IV ONE (00:10)
[2024-03-20] MEDS ORDERED: FentaNYL Citrate 50 MCG/ML 2 ML Injection IV ONE (00:10)
[2024-03-20] MEDS ORDERED: Ondansetron HCl 2 MG / ML 2ML Vial IV ONE (00:10)
[2024-03-20] MEDS ORDERED: Acetaminophen 325 MG TABLET PO PRN (00:30)
[2024-03-20] MEDS ORDERED: Ipratropium/Albuterol SulF 2.5-0.5MG/3 ML Amp INH SCH (00:30)
[2024-03-20] MEDS ORDERED: Ondansetron HCl 2 MG / ML 2ML Vial IV PRN (00:30)
[2024-03-20] MEDS ORDERED: FLU VACC TS2024-25(6MOS UP)/PF 45 MCG/0.5 ML SYRINGE IM ONE (00:30)
[2024-03-20] MEDS ORDERED: Metoclopramide HCl 10 MG Tab PO PRN (00:35)
[2024-03-20] MEDS ORDERED: BusPIRone HCl 10 MG Tab PO PRN (00:35)
[2024-03-20] MEDS ORDERED: Albuterol 2.5 MG/3 ML VIAL INH PRN (00:40)
[2024-03-20] MEDS ORDERED: HYDROcodone 10-APAP 325 TAB PO PRN (00:40)
[2024-03-20] MEDS ORDERED: DiphenhydrAMINE HCl 50 MG/ML 1ML Vial IV ONE (01:00)
[2024-03-20] MEDS ORDERED: Mometasone/Formoterol MDI 100/5 mcg 13 GM INH SCH (01:15)
--- NOTE | 2024-03-20 03:08 | NUR ---
ADMIT NOTE PT ADMITTED FROM ED THIS AM WITH ACUTE ON CHRONIC RESPIRATORY FAILURE. CURRENTLY ON 2L O2 VIA NC, SPO2 98%. ADVENTITIOUS LUNG SOUNDS NOTED. SEE ASSESSMENT CHARTING FOR DETAILS. CURRENT QDAY SMOKER, PT REPORTS ROUGHLY HALF A PACK A DAY. RESP PANEL NEGATIVE. PT DENIES SOB AT THIS TIME, RESTING COMFORTALY IN MIHAELA BED. PT ALERT AND ORIENTED x4. COMPLAINS OF PAIN TO HER RIGHT AKA STUMP AND HER LOWER BACK. TREATED WITH PRN PAIN MEDS, SEE MAR FOR DETAILS. PT HAS ESRD, REPORTS SHE DOES NOT MAKE MUCH URINE. INCONTINENCE PADS IN PLACE. RIGHT HD CATH PRESENT PRIOR TO ADMISSION. MULTIPLE WOUNDS NOTED. PICTURES IN CHART WITH PATIENT'S CONSENT SIGNED. PT STATES SHE HAS A RN REDRESS HER WOUNDS TWICE A WEEK. WOUNDS CLEANSED AND REDRESSED BY THIS RN.
[2024-03-20] MEDS ORDERED: Levothyroxine Sodium 0.125 MG Tab PO SCH (06:00)
[2024-03-20] MEDS ORDERED: Pantoprazole Sodium 40 MG Tab PO SCH (06:00)
[2024-03-20] MEDS ORDERED: Anticoagulant Sod Citrate Soln 3 ML SYR INJ PRN (07:15)
[2024-03-20] MEDS ORDERED: Insulin Human Lispro 100 Units/ML 3ML Syringe SC SCH ×2 (07:30→08:46)
[2024-03-20] MEDS ORDERED: DiphenhydrAMINE HCL 25 MG Cap PO PRN (08:20)
[2024-03-20] MEDS ORDERED: Sevelamer Carbonate 800 MG Tab PO SCH (08:30)
[2024-03-20] MEDS ORDERED: Calcium Acetate 667 MG Gel Cap PO SCH (08:30)
[2024-03-20] MEDS ORDERED: PredniSONE 20 MG Tab PO SCH (09:00)
[2024-03-20] MEDS ORDERED: Midodrine 5 MG Tab PO SCH (09:00)
[2024-03-20] MEDS ORDERED: Losartan Potassium 50 MG Tab PO SCH (09:00)
[2024-03-20] MEDS ORDERED: FLUoxetine HCL 20 MG CAP PO SCH (09:00)
[2024-03-20] MEDS ORDERED: Metolazone 5 MG Tab PO ONE (09:00)
[2024-03-20] MEDS ORDERED: Heparin Sodium 5000 Units/ML 1ML MDV SC SCH (09:00)
[2024-03-20] MEDS ORDERED: Sodium Zirconium Cyclosilicate 10 GM Packet PO SCH (09:00)
[2024-03-20] MEDS ORDERED: Empagliflozin 10 MG TAB PO SCH (09:00)
[2024-03-20] MEDS ORDERED: Furosemide 80 MG Tab PO SCH (09:00)
[2024-03-20] MEDS ORDERED: Losartan Potassium 25 MG Tab PO SCH (09:00)
[2024-03-20] MEDS ORDERED: Bumetanide 0.25 MG/ML 4ML ViaL IV SCH (09:00)
[2024-03-20 09:08] LABS: Glucose, Blood 656 mg/dL (70-99); Potassium, Blood 4.3 mmol/L (3.5-5.5)
[2024-03-20] MEDS ORDERED: Insulin Human Lispro 100 Units/ML 3ML Syringe SC ONE ×3 (09:10→22:15)
[2024-03-20] MEDS ORDERED: Insulin Human Lispro 100 Units/ML 3ML Syringe SC STA ×2 (09:11→10:55)
--- NOTE | 2024-03-20 18:44 | NUR ---
SHIFT SUMMARY PT A&POX4 AND ANSWERS QUESTIONS APPROPRIATELY. PT HAD A BLOOD SUGAR OF OVER 600, DR NOTIFIED AND PT TREATED AND RECHECKED. BLOOD SUGAR LEVELS WENT DOWN THROUGHOUT THE DAY W/ A BLOOD SUGAR OF 190 PRIOR TO DINNER. VSS, NO COMPLAINTS OF CP/PRESSURE OR SOB. SCHEDULED AND PRN MEDICATIONS GIVEN. HELD SOME MEDICATION DUE TO HEMODIALYSIS. NO ACUTE EVENTS DURING SHIFT. PT SPENT MOST OF SHIFT IN BED W/ EYES CLOSED AND RESPIRATIONS EVEN ADN UNLABORED. PT REPOSITIONED Q2HRS. PT LEFT IN A POSITION OF SAFETY W/ FALL PRECAUTIONS IN PLACE AND CALL LIGHT IN REACH.
[2024-03-20] MEDS ORDERED: Insulin Glargine-Yfgn 100 Unit/mL 3 ML SYR SC SCH ×2 (21:00)
[2024-03-20] MEDS ORDERED: Gabapentin 300 MG Cap PO SCH (21:00)
[2024-03-21] VITALS (18 sets, daily range): BP systolic 66–136; BP diastolic 38–85
[2024-03-21 00:33] LABS: Glucose, Blood 557 mg/dL (70-99)
[2024-03-21] MEDS ORDERED: Insulin Human Lispro 100 Units/ML 3ML Syringe SC ONE ×2 (01:00→22:34)
[2024-03-21 04:34] LABS: BASOPHILS ABSOLUTE AUTO 0.02 K/mm3 (0.00-0.23); BASOPHILS PERCENT AUTO 0 % (0-2); EOSINOPHILS ABSOLUTE AUTO 0.01 K/mm3 (0.00-0.68); EOSINOPHILS PERCENT AUTO 0 % (0-6); Hematocrit 33.4 % (33.0-51.0); Hemoglobin 10.2 g/dL (11.5-16.0); IMMATURE GRAN ABSOLUTE AUTO 0.15 K/mm3 (0.00-0.10); IMMATURE GRAN PERCENT AUTO 2 % (0-1); LYMPHOCYTES ABSOLUTE AUTO 1.13 K/mm3 (0.84-5.20); LYMPHOCYTES PERCENT AUTO 13 % (21-46); MONOCYTES ABSOLUTE AUTO 0.68 K/mm3 (0.16-1.47); MONOCYTES PERCENT AUTO 8 % (4-13); Mean Corpuscular HGB 28.6 pg (26.0-34.0); Mean Corpuscular HGB Conc 30.5 g/dL (31.5-36.5); Mean Corpuscular Volume 94 fL (80-100); Mean Platelet Volume 11.2 fL (9.1-12.4); NEUTROPHILS ABSOLUTE AUTO 6.65 K/mm3 (1.96-9.15); NEUTROPHILS PERCENT AUTO 77 % (41-73); NRBC ABSOLUTE 0.02 K/mm3 (0.00-0.02); NRBC Auto 0.2 /100 WBC (0.0-0.2); Platelet Count 298 K/mm3 (150-400); RDW Coefficient Variation 16.1 % (11.7-14.2); RDW Standard Deviation 54.7 fL (35.1-46.3); Red Blood Cell Count 3.57 M/mm3 (3.80-5.20); White Blood Cell Count 8.64 K/mm3 (4.00-11.30)
[2024-03-21 04:52] LABS: Albumin, Blood 3.1 g/dL (3.4-5.0); Albumin/Globulin Ratio 0.7 (0.8-1.8); Bilirubin, Total 0.4 mg/dL (0.1-1.0); Bun/Creatinine Ratio 8.8 (12.0-20.0); Calcium, Blood 9.2 mg/dL (8.5-10.1); Creatinine, Blood 3.77 mg/dL (0.40-1.00); Globulin, Blood 4.5 g/dL (2.2-4.0); Magnesium, Blood 2.4 mg/dL (1.6-2.4); Phosphorus, Blood 2.6 mg/dL (2.5-4.9); Potassium, Blood 3.6 mmol/L (3.5-5.5); Total Protein, Blood 7.6 g/dL (6.4-8.2)
[2024-03-21] MEDS ORDERED: Anticoagulant Sod Citrate Soln 3 ML SYR INJ PRN (07:10)
[2024-03-21] MEDS ORDERED: Bumetanide 1 MG Tab PO SCH (09:00)
--- NOTE | 2024-03-21 11:23 | NUR ---
PT ARRIVED BACK FROM DIALYSIS. PT REPORTS FEELING TIRED. PER CERAMIC TILE INSTALLER BP LOW DURING TREATMENT. PT IS NOW RESTING IN BED, BP 106/67.
--- NOTE | 2024-03-21 11:30 | NUR ---
DR. KAUFFMAN NOTIFIED OF ELEVATED D-DIMER. ALSO DISCUSSED IV STEROIDS, DR. KAUFFMAN STATED THEY SHOULD START NOW, ORDER CHANGED TO START NOW. PT CHANGED TO MED STATUS WITH TELE.
[2024-03-21] MEDS ORDERED: MethylPREDNISolone Sod Succ 125 MG Vial IV SCH (11:35)
[2024-03-21] MEDS ORDERED: Insulin Human Lispro 100 Units/ML 3ML Syringe SC SCH (12:21)
--- NOTE | 2024-03-21 13:00 | NUR ---
NOON ASSESSMENT PT REPORTS FEELING TIRED SINCE DIALYSIS. SHE ALSO STATES HER BREATHING "FEELS WORSE THAN BEFORE DIALYSIS," ALTHOUGH PT HAS HAD NO CHANGE IN RESPIRATORY STATUS. RESP RATE/EFFORT EVEN AND UNLABORED. PT REMAINS ON 3L O2 VIA NC, O2 SATURATIONS IN THE HIGH 90'S. REPOSITIONING OFFERED AND PT DECLINED. PT REQUESTED TO REST FOR 1 HOUR.
--- NOTE | 2024-03-21 16:53 | NUR ---
SHIFT SUMMARY PT HAD DIALYSIS THIS AM, SHE DID NOT TOLERATE WELL, BP LOW DURING AND AFTER DIALYSIS. MIDODRINE DID HELP BP. PT REPORTED FEELING TIRED AFTER DIALYSIS. PT OFFERED/ENCOURAGED TO REPOSITION MULTIPLE TIMES THIS SHIFT, SHE HAS DECLINED, EDUCATION PROVIDED. PT HAS DECLINED BATHING WELL. PT TOLERATING PO. PT RESTARTED ON SOLUMEDROL. SHE STATES HER BREATHING FEELS WORSE ALTHOUGH RESP RATE/EFFORT APPEARS UNCHANGED, O2 SATURATION IS ALSO UNCHANGED AND PT IS ON 2L O2 VIA NC, DOWN FROM 3L O2 VIA NC. PT USES THE CALL LIGHT APPROPRIATELY. VSS.
--- NOTE | 2024-03-21 17:29 | NUR ---
CALL TO DR. JAMARI KAUFFMAN NOTIFIED PT'S BLOOD GLUCOSE IS 361 PRIOR TO DINNER. PT ALREADY ON HIGH SLIDING SCALE. PER DR. KAUFFMAN CONTINUE WITH INSULIN ORDERED. PT HAS REPORTED INCREASED SHORTNESS OF BREATH SINCE SHE HAD DIALYSIS, PT IS NOT HYPOXIC, SHE O2 HAS ACTUALLY BEEN DECREASED SINCE THIS MORNING, SHE IS ON 2L INSTEAD OF 3L. RESP RATE/EFFORT IS EVEN AND UNLABORED. PT DOES HAVE A SLIGHTLY INCREASED COUGH. DR. KAUFFMAN NOTIFIED OF CONCERNS, TESSALON STARTED. PT REPORTED TO THIS RN THAT SHE TAKES NORCO 10/325 Q4PRN AT HOME, DR. KAUFFMAN INCREASED PAIN MEDICATION FROM 5X/DAY TO Q4PRN.
[2024-03-21] MEDS ORDERED: Benzonatate 100 MG Cap PO PRN (17:30)
[2024-03-21] MEDS ORDERED: HYDROcodone 10-APAP 325 TAB PO PRN (17:30)
--- NOTE | 2024-03-21 18:41 | NUR ---
ALPA CHANGE AND REPOSITION PT ALLOWED STAFF TO REPOSITION HER AND CHANGE THE LIFT SHEET UNDER HER THIS EVENING. PT HAS 2 WOUNDS THAT APPEAR TO BE PRESSURE INJURIES (R LOWER BACK/HIP AREA AND R BUTTOCK), WOUND BEDS ARE COVERED IN YELLOW ESCHAR. SKIN AROUND THE WOUNDS IS PINK AND BLANCHES. PT HAS SEVERAL AREAS OF CRACKED/SCRATCHED SKIN PRESENT TO HER BUTTOCKS AND LOWER BACK. SKIN ON POSTERIOR R STUMP IS DISCOLORED BUT BLANCHES. PT WAS EDUCATED ABOUT PRESSURE INJURIES AND ENCOURAGED TO REPOSITION EVERY 2 HOURS. PT HAS DECLINED REPOSITIONING T/O THE DAY, DESPITE EDUCATION AND FREQUENT OFFERS TO REPOSITION. SHE HAS DECLINED R/T PAIN AND FEELING TIRED. PAIN MEDICATION HAS BEEN OFFERED T/O THE DAY AND WAS INCREASED THIS EVENING BY DR. KAUFFMAN. PT HAS ALSO DECLINED BATHING DESPITE MULTIPLE OFFERS BY THIS RN AND ROSALINO AYALA. L FOOD DRESSING WAS CHANGED. PT HAS MULTIPLE WOUND PRESENT TO LEFT FOOT. WOUND PRESENT TO ANTERIOR OF THE FOOT, WOUND HAS A DARK SCAB/HARD COVERING, 2 SIMILAR WOUNDS PRESENT ON GREAT TOE, 5TH TOE AND ANTERIOR/LATERAL FOOT. PT ALSO HAS DRY FLAKEY SKIN COVERING HER FOOT, LARGE AMOUNTS OF DRY FLAKEY SKIN PRESENT ON PT'S L HEAL. AREA CLEANSED, XEROFORM AND KERLEX APPLIED. LOOSE MARLINE WRAP APPLIED TO SECURE DRESSING IN PLACE.
[2024-03-22] VITALS (20 sets, daily range): BP systolic 81–153; BP diastolic 41–78
[2024-03-22] MEDS ORDERED: Insulin Human Lispro 100 Units/ML 3ML Syringe SC ONE (00:34)
--- NOTE | 2024-03-22 02:03 | NUR ---
REPORT GIVEN TO MAGDALENO PLASENCIA FOR TRANSFER TO 211.
--- NOTE | 2024-03-22 02:53 | NUR ---
TRANSFERRED FROM PCU TONIGHT ALERT AND ORIENTED.HEMO CATH TO R CW WITH REPORTED NEXT DIALYSIS PLANNED FOR THURSDAY.PT DENIES CP OR SOB,RESP APPEAR EVEN AND UNLABORED,PT TO WEAR CPAP AT NIGHT.SKIN WITH SOUNDS /SCRATCHES NOTED.MED PO FOR PAIN.CBG 342 WHICH WAS INSTRUCTED TO PCU TO BE CALLED IF 2 AM CBG GREATER THAN 350.
[2024-03-22 04:24] LABS: Hematocrit 35.6 % (33.0-51.0); Hemoglobin 10.5 g/dL (11.5-16.0)
[2024-03-22 04:46] LABS: Magnesium, Blood 2.4 mg/dL (1.6-2.4)
[2024-03-22 04:47] LABS: Albumin, Blood 3.2 g/dL (3.4-5.0); Anion Gap 15 mmol/L (3-11); Blood Urea Nitrogen 40 mg/dL (8-24); Bun/Creatinine Ratio 9.6 (12.0-20.0); CO2, Blood 27 mmol/L (21-32); Calcium, Blood 9.7 mg/dL (8.5-10.1); Chloride, Blood 92 mmol/L (98-108); Creatinine, Blood 4.16 mg/dL (0.40-1.00); Glomerular Filtration Rate 12 (60-); Glucose, Blood 331 mg/dL (70-99); Phosphorus, Blood 2.4 mg/dL (2.5-4.9); Potassium, Blood 4.2 mmol/L (3.5-5.5); Sodium, Blood 130 mmol/L (136-145)
[2024-03-22] MEDS ORDERED: Sodium Phosphate 10 MM in Dextrose 5% 250 ML IV STA (07:01)
[2024-03-22] MEDS ORDERED: MethylPREDNISolone Sod Succ 125 MG Vial IV SCH (09:00)
[2024-03-22] MEDS ORDERED: Anticoagulant Sod Citrate Soln 3 ML SYR INJ PRN (09:45)
[2024-03-22] MEDS ORDERED: Albumin (Human) 25gm/100ml 100 ML IV PRN (09:45)
[2024-03-22] MEDS ORDERED: Alteplase Recombinant 2 MG / Vial IV ONE (11:30)
--- NOTE | 2024-03-22 14:22 | NUR ---
Spiritual Care Attempted. Pt. is awake and pleasantly declined spiritual care. Pt. verbalized that she was somnolent and needed to rest.
[2024-03-22] MEDS ORDERED: GuaiFENesin 600 MG TabCR PO SCH (15:00)
[2024-03-22] MEDS ORDERED: Budesonide 0.5 MG/2 ML RESP INH SCH (17:05)
[2024-03-22 17:14] LABS: Adenovirus Not Detected (NOT DETECT); Bordetella pertussis Not Detected (NOT DETECT); Chlamydophila pneumoniae Not Detected (NOT DETECT); Coronavirus 229E Not Detected (NOT DETECT); Coronavirus HKU1 Not Detected (NOT DETECT); Coronavirus NL63 Not Detected (NOT DETECT); Coronavirus OC43 Not Detected (NOT DETECT); Human Metapneumovirus Not Detected (NOT DETECT); Human Rhinovirus/Enterovirus Detected (NOT DETECT); Influenza A/2009-H1 Not Detected (NOT DETECT); Influenza A/H1 Not Detected (NOT DETECT); Influenza A/H3 Not Detected (NOT DETECT); Influenza B Not Detected (NOT DETECT); Mycoplasma pneumoniae Not Detected (NOT DETECT); Parainfluenza Virus 1 Not Detected (NOT DETECT); Parainfluenza Virus 2 Not Detected (NOT DETECT); Parainfluenza Virus 3 Not Detected (NOT DETECT); Parainfluenza Virus 4 Not Detected (NOT DETECT); Respiratory Syncytial Virus Not Detected (NOT DETECT); SARS-Cov-2 (COVID-19), BioFire Not Detected (NOT DETECT)
--- NOTE | 2024-03-22 17:44 | NUR ---
summary PT HAD DIALYSIS THIS AM. VSS. REPOSITIONED DURING SHIFT. CHANGED DRESSING TO L FOOT PER ORDERS. CALL LIGHT IN REACH, PT EATING DINNER AT THIS TIME. DENIES ANY NEEDS PRESENTLY.
[2024-03-22] MEDS ORDERED: LevoFLOXacin 750 MG Tab PO ONE (18:00)
[2024-03-22] MEDS ORDERED: Ascorbic Acid 250 MG Chew PO SCH (21:00)
--- NOTE | 2024-03-22 21:33 | NUR ---
CBG; PT CBG 449. HOSPITALIST NOTIFEID PER SS ORDERS. CURRENT ORDERS REV W/MD. NO NEW ORDERS REC.
[2024-03-23] VITALS (19 sets, daily range): BP systolic 83–190; BP diastolic 30–104
[2024-03-23 06:43] LABS: Hematocrit 33.9 % (33.0-51.0); Hemoglobin 10.5 g/dL (11.5-16.0)
[2024-03-23 07:06] LABS: Magnesium, Blood 2.7 mg/dL (1.6-2.4)
[2024-03-23 07:07] LABS: Albumin, Blood 3.1 g/dL (3.4-5.0); Anion Gap 13 mmol/L (3-11); Blood Urea Nitrogen 57 mg/dL (8-24); Bun/Creatinine Ratio 12.4 (12.0-20.0); CO2, Blood 30 mmol/L (21-32); Calcium, Blood 8.7 mg/dL (8.5-10.1); Chloride, Blood 88 mmol/L (98-108); Creatinine, Blood 4.59 mg/dL (0.40-1.00); Glomerular Filtration Rate 11 (60-); Glucose, Blood 568 mg/dL (70-99); Phosphorus, Blood 3.8 mg/dL (2.5-4.9); Potassium, Blood 4.3 mmol/L (3.5-5.5); Sodium, Blood 127 mmol/L (136-145)
[2024-03-23] MEDS ORDERED: Anticoagulant Sod Citrate Soln 3 ML SYR INJ PRN (07:25)
--- NOTE | 2024-03-23 07:33 | NUR ---
SHIFT SUMMARY NOC. PT A/O X4. PT REPORTS GENERALIZED PAIN, MEDICATED WITH ORALS c REPORTED RELIEF. DRESSING ON L FOOT C/D/I. PT' BLOOD SUGAR 449 AT [place], DR NOTIFIED. NO NEW ORDERS, MEDICATED PER EMAR. POWERGLIDE PLACED IN DIANA THIS SHIFT. DR. HESS ROUNDED ON PT, NEW VERBAL ORDERS FOR SINGULAIR 10MG QD. PT ON CONT BIOX, USING N/C AND CPAP WITH BLEED IN THIS SHIFT. PT MAKES NEED KNOWN. CALL LIGHT IN REACH.
[2024-03-23] MEDS ORDERED: Insulin NPH 100 Unit / ML 10ML Vial SC ONE (07:40)
[2024-03-23] MEDS ORDERED: Zinc Sulfate 220 MG Cap (Provides 50MG) PO SCH (09:00)
[2024-03-23] MEDS ORDERED: Montelukast Sodium 10 MG Tab PO SCH (09:00)
--- NOTE | 2024-03-23 10:54 | NUR ---
MORNING NOTE THIS RN ASSUMED CARE AT APPROX 0715. PATIENT SLEEPING, EASILY AROUSABLE WITH VERBAL STIMULI. VSS. TELEMETRY SHOWING SINUS 80s PER MANAGER AGRICULTURE. PROLONGED QTC NOTED PER MANAGER AGRICULTURE. LABILE BP WITH HD - PATIENT CURRENTLY OUT OF ROOM RECEIVING HD. SBP 90s PRIOR TO TRANSFER FOR HD. USES CPAP WITH SLEEP. ON 3L VIA NC WHILE AWAKE. CBG 495 THIS MORNING - MD KAUFFMAN CONTACTED THIS MORNING. RECEIVED ORDER FOR 20U NPH AND TO ADMINISTER MORNING HUMALOG PER SLIDING SCALE. ADMINISTERED PER EMAR PRIOR TO TRANSFER - PATIENTs BREAKFAST TRAY TRANSFERRED WITH. LIMITED MOBILITY DUE TO LLE WOUND AND R STUMP - LIFT TRANSFER.
--- NOTE | 2024-03-23 11:21 | NUR ---
PATIENT BACK TO ROOM FROM DIALYSIS. BP SOFT, SBP 90s-100s. MAP >65. PO MIDODRINE ADMINISTERED PER EMAR. CBG IMPROVED - 284. REPORTING 9/10 PAIN - MEDICATED PER EMAR.
--- NOTE | 2024-03-23 16:52 | NUR ---
SHIFT SUMMARY NO ACUTE CHANGES SINCE PREVIOUS DOCUMENTATION. PATIENT SLEPT THROUGHOUT DAY POST DIALYSIS - EASILY AROUSABLE WITH VERBAL STIMULI. NO EVENTS REPORTED BY TELEMETRY. BP REMAINS SOFT, SBP 90s-110s. MAP >65. REMAINS ON HOME 3L VIA NC, SATs >90%. PRODUCTIVE CONGESTED COUGH. CBG LEVELS IMPROVED. MANAGING PAIN PER EMAR. DECLINED REPOSITIONING OR BEDBATH THROUGHOUT DAY. DRESSING TO LLE CHANGED PER ORDER. ANURIC POST DIALYSIS. CALL LIGHT IN REACH. WILL CONTINUE TO MONITOR AND REPORT TO ONCOMING RN.
[2024-03-23] MEDS ORDERED: LevoFLOXacin 250MG/D5W 50ML 50 ML IV SCH (18:00)
[2024-03-24] VITALS (17 sets, daily range): BP systolic 79–159; BP diastolic 41–106
[2024-03-24 06:23] LABS: Hemoglobin 10.7 g/dL (11.5-16.0)
--- NOTE | 2024-03-24 06:39 | NUR ---
SHIFT SUMMARY NOC. PT ADMIT FOR ACUTE ON CHRONIC RESP FAILURE. PT A/O X4, PT HAVING GENERALIZED CHRONIC PAIN AND RIGHT STUMP PAIN FOR AKA. PT'S LEFT FOOT DRESSING IS C/D/I. PT CONTINUES TO HAVE COUGH AND BREATHING TX, PT MEDICATED WITH TESSALON PERLES X2, PT MEDICATED FOR PAIN WITH REPORTED IMPROVEMENT. PT WORE CPAP WITH BLEED IN O2. NO SLIDE SCALE INSULIN COVERAGE NEEDED THIS SHIFT. PT HAD FULL BED BATH THIS SHIFT. MAKES NEEDS KNOWN. REPORT GIVEN TO KACIE ON MEDICAL FLOOR. PT BEING TRANSFERED TO ROOM 306.
[2024-03-24 06:42] LABS: Magnesium, Blood 2.6 mg/dL (1.6-2.4)
[2024-03-24 06:43] LABS: Albumin, Blood 3.5 g/dL (3.4-5.0); Anion Gap 14 mmol/L (3-11); Blood Urea Nitrogen 61 mg/dL (8-24); Bun/Creatinine Ratio 13.1 (12.0-20.0); CO2, Blood 28 mmol/L (21-32); Calcium, Blood 8.9 mg/dL (8.5-10.1); Chloride, Blood 89 mmol/L (98-108); Creatinine, Blood 4.66 mg/dL (0.40-1.00); Glomerular Filtration Rate 10 (60-); Glucose, Blood 486 mg/dL (70-99); Phosphorus, Blood 3.9 mg/dL (2.5-4.9); Potassium, Blood 4.6 mmol/L (3.5-5.5); Sodium, Blood 126 mmol/L (136-145)
--- NOTE | 2024-03-24 06:44 | NUR ---
TRANSFER/ADMIT NOTE 53 YR OLD FEMALE RECEIVED FROM SURGICAL FLOOR WITH DX OF ACUTE ON CHRONIC RESP FAILURE. ALERT AND OREINTED. ON SROPLET PRECAUTIONS FOR RHINO VIRUS, ALSO HAS MRSA AND VRE PER SURGICAL NURSE REPORT. PT AWAKE. HAS RIGHT AKA WHICH WAS DONE A FEW MONTHS AGO, OPEN TO AIR - SCAR. LEFT HEEL [place]OUUND AND RED GROIN WITH SCATTERED ABRASIONS OVER BODY. PT ON O2 PER NC. PT VOICED FEELS DISCOMFORT BUT BETTER THAN SHE HAS OVER THE PAST FEW DAYS. CALL LIGHT IN REACH. RAILS UP X 2 WITH BED IN LOW POSITION FOR SAFETY. WILL CONT TO MONITOR
[2024-03-24] MEDS ORDERED: Insulin NPH 100 Unit / ML 10ML Vial SC ONE (07:45)
[2024-03-24] MEDS ORDERED: Ondansetron HCl 2 MG / ML 2ML Vial IV PRN (10:35)
--- NOTE | 2024-03-24 11:44 | NUR ---
AM NOTE: PATIENT ALERT AND ORIENTED X4. PERRLA, WEARING GLASSES. N/T TO LLE. LIFT FOR TRANSFERS. Q2 TURNING AND NEEDED. ON TELE SHOWING SR WITH RIGHT BBB AND PROLONGED QTC AT 510. SEE NEWEST EKG IN CHART FROM THIS AM. SBP 100-130'S. HR 90'S. DENIES CHEST PAIN/PRESSURE/PALPITATIONS. GENERALIZED EDEMA. BUMEX HELD UNTIL AFTER DIALYSIS. POWERGLIDE SALINE LOCKED. DR. KAUFFMAN UPDATED ON PROLONGED QTC. ON 2L NASAL CANNULA WITH BILATERAL COARSE UPPER LOBES. MOIST/LOOSE SOUNDING COUGH. EVEN AND UNLABORED RESPIRTIONS. DENIES SOB. CPAP AT BEDSIDE FOR NOC. BOWEL TONES PRESENT. DENIES ABDOMINAL PAIN. COMPLAINS OF NAUSEA. IV ZOFRAN GIVEN WITH DR. KAUFFMAN ORDERS. TOLERATING PO DIET. ACHS BLOOD SUGARS. THIS AM BLOOD SUGAR 464, DR. KAUFFMAN UPDATED AND ORDERS TO GIVE NPH INSULIN IN ADDITION TO SCHEDULED HUMALOG. AFTERNOON BLOOD SUGAR IMPROVED AT 232, DR. KAUFFMAN UPDATED. LLE PVD WOUNDS, SEE CHART PHOTOS. RIGHT AKA, WITH PHANTOM PAINS, MEDICATED THIS AM FOR GENERLIZED/STUMP PAIN. CALL LIGHT IN REACH. PATIENT LAYING IN BED AT THIS TIME AND DENIES NEEDS.
--- NOTE | 2024-03-24 18:42 | NUR ---
PATIENT ALERT AND ORIENTED, VSS, 2L 02 NC, SR WITH BBB IN 90S ON TELE. BLOOD SUGAR BEFORE DINNER WAS 124, NO COVERAGE INDICATED. CPAP WHEN SLEEPING. PAIN CONTROLLED WITH PRN NORCO X1. Q2 TURNS NEEDED AND LIFT FOR TRANSFERS. CALL LIGHT IN REACH, PT CALLS APPROPRIATELY.
[2024-03-25] VITALS (68 sets, daily range): BP systolic 57–194; BP diastolic 23–150
[2024-03-25] MEDS ORDERED: Calcium Carbonate 500 MG Tab Chew PO PRN (02:10)
[2024-03-25] MEDS ORDERED: Guaifenesin/Dextromethorphan Syrup 5 ML UDC PO PRN (04:10)
[2024-03-25] MEDS ORDERED: Mag Hydrox/Al Hydrox/Simeth 72 ML,Lidocaine 2% Viscous Soln 36 ML,Atropine/Scopalam/Hyo... PO PRN (04:10)
[2024-03-25 05:06] LABS: Hematocrit 35.3 % (33.0-51.0); Hemoglobin 11.2 g/dL (11.5-16.0)
--- NOTE | 2024-03-25 05:33 | NUR ---
AAO X4, USES CALL LIGHT FOR NEEDS. TELE IN PLACE, SR 90'S WITH R BBB. 2L O2 VIA NC AND CPAP @ NOC. PT DID NOT SLEEP, UP LOOKING @ PHONE. C/O PAIN, NAUSEA, COUGH AND HEART BURN. ORDERS REC'D FOR COUGH AND HEARTBURN. PRN MEDICATIONS GIVEN ORDERED. PLAN FOR DIALYSIS THIS AM. PT'S SON IS BRINGING WC TO HOSPITAL. PT OFFERED TO BE REPOSITIONED AND SKIN CHECK MULTIPLE TIMES, DECLINED ALL EFFORTS.
[2024-03-25 05:42] LABS: Albumin, Blood 3.8 g/dL (3.4-5.0); Anion Gap 16 mmol/L (3-11); Blood Urea Nitrogen 60 mg/dL (8-24); Bun/Creatinine Ratio 12.7 (12.0-20.0); CO2, Blood 27 mmol/L (21-32); Calcium, Blood 9.1 mg/dL (8.5-10.1); Chloride, Blood 85 mmol/L (98-108); Creatinine, Blood 4.73 mg/dL (0.40-1.00); Glomerular Filtration Rate 10 (60-); Glucose, Blood 514 mg/dL (70-99); Magnesium, Blood 2.8 mg/dL (1.6-2.4); Phosphorus, Blood 4.6 mg/dL (2.5-4.9); Potassium, Blood 4.4 mmol/L (3.5-5.5); Sodium, Blood 124 mmol/L (136-145)
[2024-03-25] MEDS ORDERED: Anticoagulant Sod Citrate Soln 3 ML SYR INJ PRN (07:15)
--- NOTE | 2024-03-25 08:03 | NUR ---
DR. RASHEED NOTIFIED OF [facility] [address]. PER DR. RASHEED, TREAT WITH HSS ORDERED. WILL UPATE LONG ACTING INSULIN ORDERS FOR THIS EVENING
[2024-03-25] MEDS ORDERED: NS 1,000 ML IV ONE ×4 (11:22→12:30)
[2024-03-25] MEDS ORDERED: NS 0 ML IV ONE (11:26)
--- NOTE | 2024-03-25 11:37 | NUR ---
PT ARRIVED FROM DIALYSIS IN BED, PER STRIPER MACHINE. DIALYSIS TREATMENT WAS STOPPED 15 MINUTES EARLY DUE TO BLOOD PRESSURE CHANGES AND PT FEELING UNWELL. AT ARRIVE TO PT ROOM 306, PT APPEARED DIAPHORETIC, ABLE TO RESPOND WITH NAME AND , THEN FELL ASLEEP DURING QUESTIONS. IMMEDIATELY ASSESSED CBG AND VS. PT CBG 195, BP 70S/40S MAP 53. RAPID RESPONSE CALLED. DR. RASHEED AT BEDSIDE. PER DR. RASHEED OK TO GIVE 500 NS BOLUS. ATTEMPT TO NOTIFY DR. HESS, LEFT MESSAGE INFORMING CURRENT SITUATION AND PT STATUS. PT NOT RESPONDING TO FLUID. TRANSFER IN PROCESS
[2024-03-25] MEDS ORDERED: NS 500 ML IV ONE (13:05)
[2024-03-25] MEDS ORDERED: Ipratropium/Albuterol SulF 2.5-0.5MG/3 ML Amp INH SCH (13:40)
[2024-03-25] MEDS ORDERED: Heparin Sodium 5000 Units/ML 1ML MDV SC SCH (16:00)
[2024-03-25] MEDS ORDERED: Midodrine 5 MG Tab PO SCH (17:00)
--- NOTE | 2024-03-25 19:12 | NUR ---
SHIFT SUMMARY Patient a rapid response from the floor due to hypotension. IVF bolus ineffective. Central line placed and pressors started. Echo and EKG done. Pt refusing repositioning and cares, educated on pressure ulcer prevention and benefits of mobility. Declined education.
--- NOTE | 2024-03-25 20:04 | NUR ---
START OF SHIFT PT LAYING IN BED RESTING. PT COMPLAINS OF PAIN OF 8/10 THAT WILL BE TREATED WITH MEDS ON EMAR. PT HR 80'S WITH O2 SAT ABOVE 98% ON 2L NC. PT HAS NONPRODUCTIVE COUGH. PT HAS NO FURTHER CONCERNS OR COMPLAINTS. WILL CONTINUE PLAN OF CARE.
[2024-03-26] VITALS (34 sets, daily range): BP systolic 87–132; BP diastolic 44–78
[2024-03-26 04:36] LABS: Hematocrit 34.4 % (33.0-51.0); Hemoglobin 10.8 g/dL (11.5-16.0)
[2024-03-26 05:01] LABS: Albumin, Blood 3.4 g/dL (3.4-5.0); Anion Gap 15 mmol/L (3-11); Blood Urea Nitrogen 58 mg/dL (8-24); Bun/Creatinine Ratio 11.9 (12.0-20.0); CO2, Blood 26 mmol/L (21-32); Calcium, Blood 8.7 mg/dL (8.5-10.1); Chloride, Blood 95 mmol/L (98-108); Creatinine, Blood 4.89 mg/dL (0.40-1.00); Glomerular Filtration Rate 10 (60-); Glucose, Blood 422 mg/dL (70-99); Magnesium, Blood 2.9 mg/dL (1.6-2.4); Phosphorus, Blood 5.1 mg/dL (2.5-4.9); Potassium, Blood 4.6 mmol/L (3.5-5.5); Sodium, Blood 131 mmol/L (136-145)
--- NOTE | 2024-03-26 06:15 | NUR ---
SHIFT SUMMARY PT RESTING IN BED WITH HR 70-80'S MAP GREATER THAN 60 PER ORDER. LEVO OFF AT APPROXIMATELY 0000 TODAY WITH CUFF ON MERON. PT AOX4. NO ACUTE EVENTS OVER NIGHT.
--- NOTE | 2024-03-26 06:27 | NUR ---
THIS RN TOOK PT BLOOD SUGAR ON 03/25/24 AT APPROXIMATELY 2000 FOR NIGHT MEDS THAT RESULTED AT 202. GLARGINE GIVEN, LANTUS HELD D/T NOT INDICATED.
[2024-03-26] MEDS ORDERED: MethylPREDNISolone Sod Succ 125 MG Vial IV ONE (06:40)
[2024-03-26] MEDS ORDERED: Midodrine 5 MG Tab PO SCH (09:00)
[2024-03-26] MEDS ORDERED: Montelukast Sodium 10 MG Tab PO SCH (09:00)
[2024-03-26] MEDS ORDERED: Insulin Glargine-Yfgn 100 Unit/mL 3 ML SYR SC SCH (16:56)
--- NOTE | 2024-03-26 16:59 | NUR ---
PROVIDER NOTIFICATION BLOOD SUGAR AT 1630 WAS 468, NOTIFIED DR. RASHEED. PT WILL GET PERSCRIBED 15UNITS SHORT ACTING INSULIN. LONG ACTING INSULIN DOSE INCREASED TO 40 AND TO BE GIVEN NOW PER DR. RASHEED.
--- NOTE | 2024-03-26 18:31 | NUR ---
SHIFT SUMMARY MIDODRINE DOSE RE-SCHEDULED FOR Q6. PER DR. CHRISTINE, SHOULD LEAVE CENTRAL LINE IN FOR A FEW DAYS EVEN IF TRANSFERED OUT TO PCU. BLOOD SUGARS ELEVATED THROUGHOUT THE DAY. LONG ACTING INSULING DOSE INCREASED AND GIVEN EARLY PER DR. RASHEED. PT AGREEABLE TO A BATH TODAY, DURING BATH THIS RN DISCOVERED A NEW WOUND ON THE PATIENTS LOWER BACK. CLEANSED, DRESSED AND DOCUMENTED. RE-INFORCED NEED FOR Q2 TURNING, UTILIZING WEDGES. MADE PCU STATUS.
--- NOTE | 2024-03-26 21:59 | NUR ---
PT IS ALERT AND ORIENTED X4, LAYING IN BED ON PERSONAL PHONE. PT HEART RATE IS IN THE 90s, PT DENIES CHEST PRESSURE AND BLOOD PRESSURE STABLE AT 126/98. PT SOUNDS CLEAR/DIMINISHED, ON 2L NC SATTING >95%, PT DENIES SHORTNESS OF BREATH. PT HAS SEVERAL GENERALIZED WOUNDS, PT IS BEING TURNED EVERY 2 HOURS TO HELP FROM DEVELOPING ANOTHER PRESSURE INJURY. THIS RN DID THE DRESSING CHANGE ON PT FOOT WOUND PER ORDER. PT CENTRAL FEMORAL LINE LOOKS CLEAN, DRY AND INTACT AND IS SALINE LOCKED. NO OTHER INTERVENTIONS AT THIS TIME. PLAN OF CARE CONTINUED.
[2024-03-26] MEDS ORDERED: Insulin Regular 100 UNIT/ML 10ML Vial SC ONE (22:50)
[2024-03-27] VITALS (17 sets, daily range): BP systolic 88–193; BP diastolic 46–110
[2024-03-27] MEDS ORDERED: Insulin Glargine-Yfgn 100 Unit/mL 3 ML SYR SC ONE ×2 (01:05→12:00)
[2024-03-27 03:09] LABS: Hematocrit 31.5 % (33.0-51.0); Hemoglobin 10.1 g/dL (11.5-16.0)
[2024-03-27 03:49] LABS: Albumin, Blood 3.3 g/dL (3.4-5.0); Anion Gap 17 mmol/L (3-11); Blood Urea Nitrogen 75 mg/dL (8-24); Bun/Creatinine Ratio 13.1 (12.0-20.0); CO2, Blood 22 mmol/L (21-32); Calcium, Blood 8.9 mg/dL (8.5-10.1); Chloride, Blood 88 mmol/L (98-108); Creatinine, Blood 5.72 mg/dL (0.40-1.00); Glomerular Filtration Rate 8 (60-); Glucose, Blood 441 mg/dL (70-99); Magnesium, Blood 2.8 mg/dL (1.6-2.4); Phosphorus, Blood 4.7 mg/dL (2.5-4.9); Potassium, Blood 5.2 mmol/L (3.5-5.5); Sodium, Blood 122 mmol/L (136-145)
--- NOTE | 2024-03-27 04:18 | NUR ---
PT SUMMARY PT IS ALERT AND ORIENTED, SLEEPING IN BED WITH BIPAP ON. NO NEW ACUTE EVENTS TO REPORT OVERNIGHT. PT BLOOD SUGAR STILL ELEVATED, AND HAVE BEEN NOTIFIED, NO NEW ORDERS AT THIS TIME. PLAN OF CARE CONTINUED.
[2024-03-27] MEDS ORDERED: Anticoagulant Sod Citrate Soln 3 ML SYR INJ PRN (07:35)
[2024-03-27] MEDS ORDERED: Empagliflozin 25 MG TAB PO SCH (09:00)
[2024-03-27] MEDS ORDERED: Insulin Human Lispro 100 Units/ML 3ML Syringe SC SCH (12:30)
--- NOTE | 2024-03-27 18:21 | NUR ---
SHIFT SUMMARY Patient went to dialysis today - 2L off, tollerated well, no issues with hypotension. Central line removed adn patient downgraded to MED/TELE. Sugars still elevated. Standing orders added and long acting increased. Will be going to dialysis tomorrow to get patient back on home dialysis schedule.
--- NOTE | 2024-03-27 18:26 | NUR ---
1750 - wound care done on LLE
[2024-03-27] MEDS ORDERED: Insulin Glargine-Yfgn 100 Unit/mL 3 ML SYR SC SCH ×2 (21:00)
[2024-03-28] VITALS (20 sets, daily range): BP systolic 73–134; BP diastolic 26–102
[2024-03-28 04:37] LABS: Hematocrit 30.1 % (33.0-51.0); Hemoglobin 9.7 g/dL (11.5-16.0)
[2024-03-28 04:56] LABS: Albumin, Blood 3.6 g/dL (3.4-5.0); Anion Gap 17 mmol/L (3-11); Blood Urea Nitrogen 62 mg/dL (8-24); Bun/Creatinine Ratio 11.8 (12.0-20.0); CO2, Blood 25 mmol/L (21-32); Calcium, Blood 8.6 mg/dL (8.5-10.1); Chloride, Blood 92 mmol/L (98-108); Creatinine, Blood 5.27 mg/dL (0.40-1.00); Glomerular Filtration Rate 9 (60-); Glucose, Blood 377 mg/dL (70-99); Magnesium, Blood 2.8 mg/dL (1.6-2.4); Phosphorus, Blood 5.5 mg/dL (2.5-4.9); Sodium, Blood 129 mmol/L (136-145)
[2024-03-28] MEDS ORDERED: Anticoagulant Sod Citrate Soln 3 ML SYR INJ PRN (07:40)
--- NOTE | 2024-03-28 17:01 | NUR ---
SHIFT SUMMARY PT HAS BEEN RESTING SINCE GETTING BACK FROM DIALYSIS. SHE DIDN'T EAT LUNCH AND CBG WAS 160 SO LUNCHTIME INSULIN WAS HELD. LUNGS CONTINUE TO HAVE SOME WHEEZES, CONGESTED COUGH. SR, BP STABLE WITH MAP ABOVE 70. PT ENCOURAGED TO ASSIST WITH TURNS, BUT WAS RELUCTANT, ASKING FOR THE LIFT TO BE USED. HOWEVER, DURING HER BATH SHE WAS ABLE TO TURN WITH MODERATE ASSISTANCE. NO URINE OUTPUT, SMALL SMEAR OF STOOL DURING BATH. PT'S MOTHER VISITED THIS AFTERNOON.
--- NOTE | 2024-03-28 18:16 | NUR ---
TRANSFER PT TRANSFERRED UP TO RM 335. REPORT GIVENT Juan A MITTAL RN. PT NOTIFIED HER SON OF NEW ROOM. ALL BELONGINGS MOVED WITH PT.
[2024-03-29] VITALS (16 sets, daily range): BP systolic 72–147; BP diastolic 23–105
--- NOTE | 2024-03-29 04:42 | NUR ---
A&OX4, VSS, MEDICATED 2X FOR C/O GENERALIZED PAIN-SLEEPING AT REASSESS BOTH TIMES, EX LG BM THIS SHIFT, APPEARS TO BE SLEEPING AT THIS TIME W/CPAP IN PLACE, CALL LIGHT IN REACH, WILL CONT TO MONITOR UNTIL REPORT GIVEN TO ONCOMING NURSE.
[2024-03-29 06:28] LABS: Hematocrit 32.6 % (33.0-51.0); Hemoglobin 10.3 g/dL (11.5-16.0)
[2024-03-29 06:44] LABS: Albumin, Blood 3.5 g/dL (3.4-5.0); Anion Gap 18 mmol/L (3-11); Blood Urea Nitrogen 54 mg/dL (8-24); Bun/Creatinine Ratio 10.4 (12.0-20.0); CO2, Blood 25 mmol/L (21-32); Calcium, Blood 8.8 mg/dL (8.5-10.1); Chloride, Blood 93 mmol/L (98-108); Creatinine, Blood 5.18 mg/dL (0.40-1.00); Glomerular Filtration Rate 9 (60-); Glucose, Blood 366 mg/dL (70-99); Magnesium, Blood 2.6 mg/dL (1.6-2.4); Phosphorus, Blood 4.9 mg/dL (2.5-4.9); Potassium, Blood 4.7 mmol/L (3.5-5.5); Sodium, Blood 131 mmol/L (136-145)
[2024-03-29] MEDS ORDERED: Anticoagulant Sod Citrate Soln 3 ML SYR INJ PRN (07:30)
[2024-03-29 07:41] LABS: HEPATITIS B SURFACE ANTIBODY <3.10 IU/L
[2024-03-29 10:09] LABS: HEPATITIS A ANTIBODY, IGM Negative (Negative); HEPATITIS B CORE ANTIBODY, IGM Negative (Negative); HEPATITIS B SURFACE ANTIGEN Negative (Negative); HEPATITIS C AB CIA INTERP Negative (Negative); HEPATITIS C ANTIBODY CIA INDEX 0.68 IV
[2024-03-29] MEDS ORDERED: GUAI600T33 PO (13:03)
[2024-03-29] MEDS ORDERED: BENZ100A PO (13:03)
[2024-03-29] MEDS ORDERED: MONT10T PO (13:04)
--- NOTE | 2024-03-29 16:11 | NUR ---
late entry pt discharged home. vss at discharge, discharge instructions discussed no questions at discharge
--- NOTE | 2024-03-29 16:35 | NUR ---
PT DISCHARGED WITH POWERGLIDE, ATTEMPTED TO CONTACT PT VIA TELEPHONE TO HAVE PT RETURN TO HOSPITAL FOR REMOVAL. NO ANSWER.
== END 2024-03-29 13:35 | disposition home or self-care (01) | DRG 291 ==
LOC: ER 19:19 → MEDS 03-20 01:05 → ICUE 03-20 01:05 → SURS 03-20 01:05 → ERHOLD 03-20 01:05 → PCU 03-20 01:05 → SURS 03-22 00:30 → MEDS 03-24 06:31 → ICUE 03-25 12:10 → MEDS 03-28 18:15
PROVIDERS: Emergency Medicine; Hospitalist; Internal Medicine; Internal Medicine Nephrology; ADMIT Student in an Organized Health Care Education/Training Program
PROC: 5A1D70Z Performance of Urinary Filtration, Intermittent, Less than 6 Hours Per Day (ICD-10-PCS; 2024-03-21)
PROC: 0JH63XZ Insertion of Tunneled Vascular Access Device into Chest Subcutaneous Tissue and Fascia, Percutaneous Approach (ICD-10-PCS; principal; 2024-03-25)
PROC: 02HV33Z Insertion of Infusion Device into Superior Vena Cava, Percutaneous Approach (ICD-10-PCS; 2024-03-25)
PROC: 3E033XZ Introduction of Vasopressor into Peripheral Vein, Percutaneous Approach (ICD-10-PCS; 2024-03-25)
DX: I13.2 Hypertensive heart and chronic kidney disease with heart failure and with stage 5 chronic kidney disease, or end stage renal disease (principal); I50.33 Acute on chronic diastolic (congestive) heart failure; J96.21 Acute and chronic respiratory failure with hypoxia; N18.6 End stage renal disease; R57.8 Other shock; F11.20 Opioid dependence, uncomplicated; N25.81 Secondary hyperparathyroidism of renal origin; E87.1 Hypo-osmolality and hyponatremia; E66.2 Morbid (severe) obesity with alveolar hypoventilation; Z99.2 Dependence on renal dialysis; E10.22 Type 1 diabetes mellitus with diabetic chronic kidney disease; D63.1 Anemia in chronic kidney disease; F41.9 Anxiety disorder, unspecified; F32.A Depression, unspecified; E03.9 Hypothyroidism, unspecified; G47.00 Insomnia, unspecified; E10.65 Type 1 diabetes mellitus with hyperglycemia; G89.4 Chronic pain syndrome; F17.210 Nicotine dependence, cigarettes, uncomplicated; E10.42 Type 1 diabetes mellitus with diabetic polyneuropathy; E10.51 Type 1 diabetes mellitus with diabetic peripheral angiopathy without gangrene; E87.6 Hypokalemia; T80.89XA Other complications following infusion, transfusion and therapeutic injection, initial encounter; J44.9 Chronic obstructive pulmonary disease, unspecified; I08.0 Rheumatic disorders of both mitral and aortic valves; Z90.710 Acquired absence of both cervix and uterus; Z88.0 Allergy status to penicillin; Z79.890 Hormone replacement therapy; Z79.899 Other long term (current) drug therapy; Z79.4 Long term (current) use of insulin; Z86.14 Personal history of Methicillin resistant Staphylococcus aureus infection; Z89.411 Acquired absence of right great toe
CPT/HCPCS: 0202U; 0241U; 36415; 36556; 71045; 80053; 80069; 80074; 82803; 82947; 83036; 83735; 83880; 84100; 84132; 84484; 85014; 85018; 85025; 85379; 93005; 93010; 93306; 94640; 94660; 94664; 94760; 94762; 96374; 99285-25; A9270; C1751; J1644; J1815; J1956; J2405; J2919; J2997; J3010; J7030; J7040; J7060; J7512; P9047

== ENCOUNTER 2024-04-21 19:36 | Inpatient (IN) | payer MEDICARE, OTHER ==
[~2024-04-21] VITALS: Ht 170.2 cm; Wt 136.7 kg
[~2024-04-21 19:36] MED LIST changes: +BENZ100A PO; +MONT10T PO
[2024-04-21] MEDS ORDERED: Morphine Sulfate 4 MG/1 ML Injection IV ONE ×2 (20:05→23:25)
[2024-04-21] MEDS ORDERED: Clindamycin 600mg in D5W 50 ML IV ONE (20:05)
[2024-04-21] MEDS ORDERED: Ondansetron HCl 2 MG / ML 2ML Vial IV ONE (20:05)
[2024-04-21 20:12] LABS: BASOPHILS ABSOLUTE AUTO 0.06 K/mm3 (0.00-0.23); BASOPHILS PERCENT AUTO 1 % (0-2); EOSINOPHILS ABSOLUTE AUTO 0.21 K/mm3 (0.00-0.68); EOSINOPHILS PERCENT AUTO 2 % (0-6); Hematocrit 32.5 % (33.0-51.0); Hemoglobin 10.2 g/dL (11.5-16.0); IMMATURE GRAN ABSOLUTE AUTO 0.04 K/mm3 (0.00-0.10); IMMATURE GRAN PERCENT AUTO 1 % (0-1); LYMPHOCYTES ABSOLUTE AUTO 0.69 K/mm3 (0.84-5.20); LYMPHOCYTES PERCENT AUTO 8 % (21-46); MONOCYTES ABSOLUTE AUTO 0.46 K/mm3 (0.16-1.47); MONOCYTES PERCENT AUTO 5 % (4-13); Mean Corpuscular HGB 29.6 pg (26.0-34.0); Mean Corpuscular HGB Conc 31.4 g/dL (31.5-36.5); Mean Corpuscular Volume 94 fL (80-100); Mean Platelet Volume 10.3 fL (9.1-12.4); NEUTROPHILS ABSOLUTE AUTO 7.24 K/mm3 (1.96-9.15); NEUTROPHILS PERCENT AUTO 83 % (41-73); Platelet Count 338 K/mm3 (150-400); RDW Coefficient Variation 16.6 % (11.7-14.2); RDW Standard Deviation 57.7 fL (35.1-46.3); Red Blood Cell Count 3.45 M/mm3 (3.80-5.20)
[2024-04-21 20:31] LABS: C-REACTIVE PROTEIN, EXT RANGE 14.6 mg/dL (0.000-0.300); Calcium, Blood 9.2 mg/dL (8.5-10.1); Creatinine, Blood 4.25 mg/dL (0.40-1.00); Potassium, Blood 3.9 mmol/L (3.5-5.5)
[2024-04-22] VITALS (14 sets, daily range): BP systolic 100–174; BP diastolic 44–151
[2024-04-22] MEDS ORDERED: Naloxone HCl 0.4MG / ML 1ML Vial IV PRN (00:20)
[2024-04-22] MEDS ORDERED: HYDROcodone 5-APAP 325 TAB PO PRN (00:20)
[2024-04-22] MEDS ORDERED: Acetaminophen 325 MG TABLET PO PRN (00:20)
[2024-04-22] MEDS ORDERED: Morphine Sulfate 4 MG/1 ML Injection IV PRN (00:20)
[2024-04-22] MEDS ORDERED: FLU VACC TS2024-25(6MOS UP)/PF 45 MCG/0.5 ML SYRINGE IM SCH (00:20)
[2024-04-22] MEDS ORDERED: BusPIRone HCl 10 MG Tab PO PRN (00:25)
[2024-04-22] MEDS ORDERED: DiphenhydrAMINE HCl 50 MG Cap PO PRN (00:30)
[2024-04-22] MEDS ORDERED: Ondansetron 4 MG SoluTab MM PRN (00:30)
[2024-04-22] MEDS ORDERED: Benzonatate 100 MG Cap PO PRN (00:35)
[2024-04-22] MEDS ORDERED: Albuterol 2.5 MG/3 ML VIAL INH PRN ×2 (00:35→17:50)
[2024-04-22] MEDS ORDERED: Lactated Ringer's 1,000 ML IV SCH (01:00)
[2024-04-22] MEDS ORDERED: Vancomycin HCL 2,000 MG in NS 500 ML IV ONE (01:00)
[2024-04-22] MEDS ORDERED: Mometasone/Formoterol MDI 100/5 mcg 13 GM INH SCH (01:15)
[2024-04-22 04:59] LABS: BASOPHILS ABSOLUTE AUTO 0.07 K/mm3 (0.00-0.23); BASOPHILS PERCENT AUTO 1 % (0-2); EOSINOPHILS ABSOLUTE AUTO 0.23 K/mm3 (0.00-0.68); EOSINOPHILS PERCENT AUTO 3 % (0-6); Hematocrit 30.2 % (33.0-51.0); Hemoglobin 9.2 g/dL (11.5-16.0); IMMATURE GRAN ABSOLUTE AUTO 0.05 K/mm3 (0.00-0.10); IMMATURE GRAN PERCENT AUTO 1 % (0-1); LYMPHOCYTES ABSOLUTE AUTO 0.74 K/mm3 (0.84-5.20); LYMPHOCYTES PERCENT AUTO 10 % (21-46); MONOCYTES ABSOLUTE AUTO 0.56 K/mm3 (0.16-1.47); MONOCYTES PERCENT AUTO 8 % (4-13); Mean Corpuscular HGB 28.9 pg (26.0-34.0); Mean Corpuscular HGB Conc 30.5 g/dL (31.5-36.5); Mean Corpuscular Volume 95 fL (80-100); Mean Platelet Volume 10.3 fL (9.1-12.4); NEUTROPHILS ABSOLUTE AUTO 5.54 K/mm3 (1.96-9.15); NEUTROPHILS PERCENT AUTO 77 % (41-73); Platelet Count 314 K/mm3 (150-400); RDW Coefficient Variation 16.6 % (11.7-14.2); RDW Standard Deviation 57.9 fL (35.1-46.3); Red Blood Cell Count 3.18 M/mm3 (3.80-5.20); White Blood Cell Count 7.19 K/mm3 (4.00-11.30)
[2024-04-22 05:30] LABS: Albumin, Blood 2.4 g/dL (3.4-5.0); Albumin/Globulin Ratio 0.5 (0.8-1.8); Bilirubin, Total 0.4 mg/dL (0.1-1.0); Bun/Creatinine Ratio 8.4 (12.0-20.0); Calcium, Blood 8.8 mg/dL (8.5-10.1); Creatinine, Blood 4.63 mg/dL (0.40-1.00); Globulin, Blood 4.7 g/dL (2.2-4.0); Magnesium, Blood 2.6 mg/dL (1.6-2.4); Potassium, Blood 4.1 mmol/L (3.5-5.5); Total Protein, Blood 7.1 g/dL (6.4-8.2)
[2024-04-22] MEDS ORDERED: Levothyroxine Sodium 0.125 MG Tab PO SCH (06:00)
[2024-04-22] MEDS ORDERED: Pantoprazole Sodium 40 MG Tab PO SCH (06:00)
[2024-04-22] MEDS ORDERED: Sevelamer Carbonate 800 MG Tab PO SCH (08:30)
[2024-04-22] MEDS ORDERED: Calcium Acetate 667 MG Gel Cap PO SCH (08:30)
[2024-04-22] MEDS ORDERED: Anticoagulant Sod Citrate Soln 3 ML SYR INJ PRN (08:35)
[2024-04-22] MEDS ORDERED: Petrolatum/Mineral Oil/Lanolin 1 APPLIC/50 GM Tube TOP SCH (08:55)
[2024-04-22] MEDS ORDERED: Lactobacil 2-S.Thermo-Bifido 1 1 Cap PO SCH (09:00)
[2024-04-22] MEDS ORDERED: Losartan Potassium 50 MG Tab PO SCH (09:00)
[2024-04-22] MEDS ORDERED: Sodium Zirconium Cyclosilicate 10 GM Packet PO SCH (09:00)
[2024-04-22] MEDS ORDERED: GuaiFENesin 600 MG TabCR PO SCH (09:00)
[2024-04-22] MEDS ORDERED: Midodrine 5 MG Tab PO SCH (09:00)
[2024-04-22] MEDS ORDERED: FLUoxetine HCL 20 MG CAP PO SCH (09:00)
[2024-04-22] MEDS ORDERED: Docusate Sodium 100 MG Cap PO SCH (09:00)
[2024-04-22] MEDS ORDERED: Montelukast Sodium 10 MG Tab PO SCH (09:00)
--- NOTE | 2024-04-22 09:33 | NUR ---
Dialysis- Pt to be at dialysis today at [address] Rice orders. Nurse called and let us know that pt was refusing dialysis today and only runs Tuesdays, and Saturdays and she was not going to run any other days- Dr. Gardner notified.
[2024-04-22] MEDS ORDERED: Insulin Human Lispro 100 Units/ML 3ML Syringe SC SCH (12:00)
[2024-04-22] MEDS ORDERED: Tranexamic Acid 100 ML IV SCH (13:25)
[2024-04-22] MEDS ORDERED: Chlorhexidine Mouth Care 15 ML UDC MT SCH (13:25)
--- NOTE | 2024-04-22 15:15 | NUR ---
PT ARRIVED TO ROOM 335.
--- NOTE | 2024-04-22 15:45 | NUR ---
PT TRANSFERED TO SURGERY.
[2024-04-22] MEDS ORDERED: FentaNYL Citrate 50 MCG/ML 2 ML Injection ONE (15:46)
[2024-04-22] MEDS ORDERED: Dexamethasone Sod Phos 10 MG/ML 1ML VIAL ONE (15:46)
[2024-04-22] MEDS ORDERED: EpiNEPhrine 1 MG/1 ML 1ML Vial ONE (15:46)
[2024-04-22] MEDS ORDERED: Bupivacaine HCl 0.25% 30 ML Injection ONE (15:59)
[2024-04-22] MEDS ORDERED: NS 1,000 ML IV SCH (16:00)
[2024-04-22] MEDS ORDERED: Darbepoetin Alfa In Albumn Sol 60 MCG/0.3 ML Syringe SC ONE (16:00)
--- NOTE | 2024-04-22 16:01 | NUR ---
PT HAS 20G IV TO LEFT AC THAT FLUSHES WELL AND FLOWS TO GRAVITY.
--- NOTE | 2024-04-22 16:04 | NUR ---
PT BROUGHT FROM FLOOR TO DAY SURGERY FOR PROCEDURE. History, Chart, Medications and Allergies reviewed before start of procedure. Lungs clear T/O to Auscultation. Patient confirms NPO status and agrees with scheduled surgery. Pre-Op teaching done. Pt verbalizes understanding. PT BELONGINGS LEFT IN PERSONAL ROOM ON MEDICAL FLOOR. PT HAS JEWELRY THAT CANNOT BE REMOVED ON HANDS. JEWELRY WAIVER SIGNED, JEWELRY TAPED, OR NOTIFIED.
[2024-04-22] MEDS ORDERED: Dexmedetomidine HCL 200 MCG / 2 ML ONE (16:06)
[2024-04-22] MEDS ORDERED: Midazolam HCl 1MG / ML 2ML Vial ONE (16:44)
[2024-04-22] MEDS ORDERED: Clindamycin 600mg in D5W 50 ML IV SCH (16:45)
[2024-04-22] MEDS ORDERED: propofoL 20 ML IV ONE (17:03)
--- NOTE | 2024-04-22 17:10 | NUR ---
1641: Dr. Doshi and Dr. Metcalf at bedside to perform left sciatic nerve block in preop. 1645: Pt premedicated by Dr. Doshi, see his anesthesia record. 1648: Block time start. 1657: Block time end. VSS, Pt on continous pulse oximetry monitor throughout procedure. Pt tolerated procedure well.
[2024-04-22] MEDS ORDERED: HYDROmorphone HCl/Pf 1MG SYR ONE (17:24)
[2024-04-22] MEDS ORDERED: Phenylephrine HCl 100 MCG/ML-NS 10MLSYR (1MG/10ML) ONE ×2 (17:37→18:37)
[2024-04-22] MEDS ORDERED: FentaNYL Citrate 50 MCG/ML 2 ML Injection IV PRN ×2 (17:45→17:50)
[2024-04-22] MEDS ORDERED: HYDROmorphone HCl/Pf 1MG SYR IV PRN ×2 (17:45)
[2024-04-22] MEDS ORDERED: Atropine Sulfate 0.1 MG/ML 10ML SYR IV PRN (17:50)
[2024-04-22] MEDS ORDERED: Ondansetron HCl 2 MG / ML 2ML Vial IV PRN (17:50)
[2024-04-22] MEDS ORDERED: Labetalol HCL 5 MG/ML 4ML Injection (Single Dose) IV PRN (17:50)
[2024-04-22] MEDS ORDERED: Sugammadex Sodium 200 MG/2ML SDV (100 MG/ML) ONE (18:23)
[2024-04-22] MEDS ORDERED: Ondansetron HCl 2 MG / ML 2ML Vial ONE (18:35)
[2024-04-22 20:51] LABS: Vancomycin, Random 21.2 ug/mL
[2024-04-22] MEDS ORDERED: Gabapentin 300 MG Cap PO SCH (21:00)
[2024-04-22] MEDS ORDERED: Insulin Glargine-Yfgn 100 Unit/mL 3 ML SYR SC SCH (21:00)
[2024-04-23] VITALS (24 sets, daily range): BP systolic 89–144; BP diastolic 40–81
[2024-04-23 05:40] LABS: Hematocrit 26.3 % (33.0-51.0)
[2024-04-23 06:13] LABS: Magnesium, Blood 2.6 mg/dL (1.6-2.4)
--- NOTE | 2024-04-23 06:29 | NUR ---
BENZOL STILL OPERATOR SUMMARY PT RETURNED TO ROOM AT 1935 FROM LEFT BKA SURGERY. REPORT FROM HONEY PROCESSOR, CAROL. PAIN CONTROLLED WITH EPIDURAL BLOCK, VITALS STABLE. BRENNON DRESSING, 2ND DOSE OF TXA TO BE GIVEN ON MED FLOOR DUE AT 2014. UPON ARRIVAL; PT A/OX4. PT CRYING AND REPORTING 8/10 PAIN. MORPHINE GIVEN. PT ABLE TO MAKE NEEDS KNOWN AND FOLLOW DIRECTIONS. HX OF ESRD, DM, HTN, ANEMIA, OSTEOMYLITIS. RIGHT AKA DONE 12/28. PT IS FULL CODE. PT C/O OF ITCHING AND SAID SHE CAN'T STOP SCRATCHING. GAVE PT BENADRYL. COMPLETE SKIN ASSESSMENT--PT HAS BRIGHT RED AND OPEN SCRATCHES TO BUTTOCK, UPPER POSTERIOR THIGHS, BACK, AND PANNUS AREA. OPEN SCRATCHES BLEEDIN; CLEANED AND MEPILEX APPLIED TO OPEN AREAS. PT CONSENTED TO PHOTOS. PHOTES TAKEN AND PLACED IN THE CHARE. EDUCATED PT ON RISK OF INFECTION AND IMPORTANCE OF NOT SRATCHING. CONSTANT CARB DIET ORDERED. PT GIVEN WATER AND DIET SODA. BOWEL TONES PRESENT BUT HYPOACTIVE. PT REPORTED NAUSEA. TX WITH ZOFRAN. ONE EPISODE OF EMESIS. PT REPORTS N&V RESOLVED THIS MORNING. PT HAS MORPHINE ORDERED EVERY 2 HOURS AND NORCO Q4. PT REQUESTING MEDICATIONS EVERY 2 HOURS AND NORCO WHEN SHE CAN HAVE IT. PT REPORTS PAIN 8/10 WITH LITTLE IMPROVEMENT. DRESSING TO LEFT BKA CDI. BRENNON DRESSING IN PLACE. PT HAS CONT BIOX. PT ORIENTED TO ROOM AND CALL LIGHT. PT XFERED INTO A SPECIALIZED PRESSURE MATTRESS/BED. CALL LIGHT ACCESSIBLE. DR HESS AT BEDSIDE THIS AM. ADVISED PT SHE WOULD HAVE DIALYSIS TODAY AND LIKELY EVERY DAY FOR NEXT SEVERAL DAYS. CARE WILL CONTINUE UNTIL REPORT GIVEN TO ONCOMING NURSE.
[2024-04-23 06:32] LABS: Albumin, Blood 2.5 g/dL (3.4-5.0); Anion Gap 13 mmol/L (3-11); Blood Urea Nitrogen 46 mg/dL (8-24); CO2, Blood 28 mmol/L (21-32); Calcium, Blood 8.9 mg/dL (8.5-10.1); Chloride, Blood 99 mmol/L (98-108); Creatinine, Blood 5.72 mg/dL (0.40-1.00); Glomerular Filtration Rate 8 (60-); Glucose, Blood 147 mg/dL (70-99); Phosphorus, Blood 7.9 mg/dL (2.5-4.9); Potassium, Blood 4.6 mmol/L (3.5-5.5); Sodium, Blood 135 mmol/L (136-145); Vancomycin, Random 21.8 ug/mL
[2024-04-23] MEDS ORDERED: Insulin Human Lispro 100 Units/ML 3ML Syringe SC SCH (07:30)
[2024-04-23] MEDS ORDERED: Anticoagulant Sod Citrate Soln 3 ML SYR INJ PRN (07:40)
[2024-04-23 08:06] LABS: BASOPHILS ABSOLUTE AUTO 0.07 K/mm3 (0.00-0.23); BASOPHILS PERCENT AUTO 1 % (0-2); EOSINOPHILS ABSOLUTE AUTO 0.24 K/mm3 (0.00-0.68); EOSINOPHILS PERCENT AUTO 3 % (0-6); IMMATURE GRAN ABSOLUTE AUTO 0.04 K/mm3 (0.00-0.10); IMMATURE GRAN PERCENT AUTO 1 % (0-1); LYMPHOCYTES ABSOLUTE AUTO 0.54 K/mm3 (0.84-5.20); LYMPHOCYTES PERCENT AUTO 7 % (21-46); MONOCYTES ABSOLUTE AUTO 0.52 K/mm3 (0.16-1.47); MONOCYTES PERCENT AUTO 7 % (4-13); Mean Corpuscular HGB 29.1 pg (26.0-34.0); Mean Corpuscular HGB Conc 30.9 g/dL (31.5-36.5); Mean Corpuscular Volume 94 fL (80-100); NEUTROPHILS ABSOLUTE AUTO 5.94 K/mm3 (1.96-9.15); NEUTROPHILS PERCENT AUTO 81 % (41-73); Platelet Count 324 K/mm3 (150-400); RDW Coefficient Variation 16.1 % (11.7-14.2); RDW Standard Deviation 55.5 fL (35.1-46.3); Red Blood Cell Count 2.75 M/mm3 (3.80-5.20); White Blood Cell Count 7.35 K/mm3 (4.00-11.30)
--- NOTE | 2024-04-23 08:12 | NUR ---
pt laying in bed asking for morphine, states pain is 8/10, this was given with a bit of relief, a/ox4, cooperative with care, follows commands well, lungs are clear in upper guardado, dim in bases, resp even and unlabored, denies cough, on bipap at hs, r/a while awake, hrr, murmur noted, piv to lac site is clear and patent, btx4, abd flat soft nontender, reports scant amount of voids, skin has scabs from scratching, bottoms has scratches, left bka dressing is intact without drainage, moves upper ext well, both le are bkas, perma cath to rcw, site is clear, takes po meds without diff, will be having dialysis today, call light in reach.
[2024-04-23] MEDS ORDERED: Albumin (Human) 25gm/100ml 100 ML IV PRN (09:20)
[2024-04-23] MEDS ORDERED: Dexmedetomidine HCL 200 MCG / 2 ML ONE (12:34)
[2024-04-23] MEDS ORDERED: EpiNEPhrine 1 MG/1 ML 1ML Vial ONE (12:35)
[2024-04-23] MEDS ORDERED: Bupivacaine 0.5% Inj 50 ML Vial ONE (12:35)
--- NOTE | 2024-04-23 13:35 | NUR ---
pt returned to room from Dialysis, and OR having a block done. she is awake asking for water. call light in reach.
[2024-04-23] MEDS ORDERED: Vancomycin HCL 750 MG in NS 250 ML IV ONE (14:00)
[2024-04-23] MEDS ORDERED: NS 250 ML IV PRN (14:20)
--- NOTE | 2024-04-23 18:32 | NUR ---
pt slept for a few hrs this afternoon, continues to have pain, no further changes this shift, call light in reach.
[2024-04-24 04:23] VITALS: BP 102/72
[2024-04-24 04:41] LABS: Hematocrit 25.3 % (33.0-51.0); Hemoglobin 7.7 g/dL (11.5-16.0)
[2024-04-24 05:09] LABS: Albumin, Blood 2.5 g/dL (3.4-5.0); Anion Gap 15 mmol/L (3-11); Blood Urea Nitrogen 25 mg/dL (8-24); Bun/Creatinine Ratio 6.3 (12.0-20.0); CO2, Blood 26 mmol/L (21-32); Calcium, Blood 8.7 mg/dL (8.5-10.1); Chloride, Blood 96 mmol/L (98-108); Creatinine, Blood 3.96 mg/dL (0.40-1.00); Glomerular Filtration Rate 13 (60-); Glucose, Blood 206 mg/dL (70-99); Magnesium, Blood 2.3 mg/dL (1.6-2.4); Potassium, Blood 3.7 mmol/L (3.5-5.5); Sodium, Blood 133 mmol/L (136-145)
[2024-04-24 05:10] LABS: Vancomycin, Random 26.3 ug/mL
--- NOTE | 2024-04-24 05:19 | NUR ---
SHIFT SUMMARY: STEPHANIE IS A&OX4. VSS, NO ACUTE EVENTS OVERNIGHT. PT REPORTS MINIMAL PAIN MANAGEMENT WITH THE MEDICATIONS PER MAR. SHE IS ABLE TO TURN AND REPOSITION HERSELF IN BED WITH ONE TO TWO-PERSON ASSIST. POWERGLIDE TO DIANA PLACED THIS SHIFT. SHE HAS WORN THE BIPAP WHILE SLEEPING AND IS TOLERATING PO INTAKE WELL. DRESSINGS TO BACK, BOTTOM AND THIGHS DRY AND INTACT. DISCUSSED IMPORTANCE OF AVOIDING SCRATCHING WITH PT D/T THE FRAGILE NATURE OF HER SKIN. SHE IS LYING IN BED WITH THE CALL LIGHT IN REACH. WILL GIVE REPORT TO DAY SHIFT RN.
[2024-04-24 07:29] VITALS: BP 120/52
[2024-04-24] MEDS ORDERED: Morphine Sulfate 4 MG/1 ML Injection IV PRN ×2 (10:55→11:25)
[2024-04-24] MEDS ORDERED: OxyCODONE 7.5 mg/Acetam 325 mg TABLET PO PRN (11:25)
[2024-04-24 16:25] VITALS: BP 92/61
--- NOTE | 2024-04-24 18:14 | NUR ---
SHIFT SUMMARY: PATIENT A/OX4, PLEASANT AND COOPERATIVE c CARE. PATIENT HAS BRENNON DRAINED TO L STUMP, DRESSING TO SITE C/D/I. PATIENT CONTINUES TO REPORTS PAIN 9-01/13 TO L STUMP, MEDICATED FOR PAIN PER EMAR c MOD EFFECT. PATIENT HAS SCRATCH JOANNE T/O HER BODY, MIPELEX DRESSING PLACED. PATIENT HAS MOD APPETITE, NO URINE OUTPUT THIS SHIFT. VITAL SIGNS REVIEWED. CALL LIGHT IN REACH.
[2024-04-24 19:30] VITALS: BP 118/74
[2024-04-24] MEDS ORDERED: Gabapentin 300 MG Cap PO SCH (21:00)
[2024-04-25] VITALS (18 sets, daily range): BP systolic 85–155; BP diastolic 40–100
--- NOTE | 2024-04-25 05:11 | NUR ---
SHIFT SUMMARY: admited for wound to LLE and is a full code. is alert and able to make needs known. ADLs have been 1-2 depending on activity. pain has been managed with PRN medication about every 2 hours. power glide to left upper arm is patent with dressing that is CDI. dressing to LLE is CDI.
[2024-04-25] MEDS ORDERED: Anticoagulant Sod Citrate Soln 3 ML SYR INJ PRN (07:20)
[2024-04-25 08:09] LABS: Hematocrit 24.3 % (33.0-51.0); Hemoglobin 7.5 g/dL (11.5-16.0)
[2024-04-25 08:14] LABS: Albumin, Blood 2.5 g/dL (3.4-5.0); Anion Gap 18 mmol/L (3-11); Blood Urea Nitrogen 35 mg/dL (8-24); Bun/Creatinine Ratio 6.4 (12.0-20.0); CO2, Blood 23 mmol/L (21-32); Calcium, Blood 9.2 mg/dL (8.5-10.1); Chloride, Blood 94 mmol/L (98-108); Creatinine, Blood 5.44 mg/dL (0.40-1.00); Glomerular Filtration Rate 9 (60-); Glucose, Blood 363 mg/dL (70-99); Magnesium, Blood 2.6 mg/dL (1.6-2.4); Phosphorus, Blood 7.6 mg/dL (2.5-4.9); Potassium, Blood 3.7 mmol/L (3.5-5.5); Sodium, Blood 131 mmol/L (136-145); Vancomycin, Random 22.8 ug/mL
[2024-04-25 10:31] LABS: BASOPHILS ABSOLUTE AUTO 0.04 K/mm3 (0.00-0.23); BASOPHILS PERCENT AUTO 1 % (0-2); EOSINOPHILS PERCENT AUTO 2 % (0-6); Hematocrit 24.2 % (33.0-51.0); Hemoglobin 7.5 g/dL (11.5-16.0); IMMATURE GRAN ABSOLUTE AUTO 0.03 K/mm3 (0.00-0.10); IMMATURE GRAN PERCENT AUTO 0 % (0-1); LYMPHOCYTES ABSOLUTE AUTO 0.74 K/mm3 (0.84-5.20); LYMPHOCYTES PERCENT AUTO 9 % (21-46); MONOCYTES ABSOLUTE AUTO 0.67 K/mm3 (0.16-1.47); MONOCYTES PERCENT AUTO 8 % (4-13); Mean Corpuscular HGB 28.7 pg (26.0-34.0); Mean Corpuscular Volume 93 fL (80-100); Mean Platelet Volume 10.7 fL (9.1-12.4); NEUTROPHILS ABSOLUTE AUTO 6.61 K/mm3 (1.96-9.15); NEUTROPHILS PERCENT AUTO 80 % (41-73); Platelet Count 363 K/mm3 (150-400); RDW Standard Deviation 54.4 fL (35.1-46.3); Red Blood Cell Count 2.61 M/mm3 (3.80-5.20); White Blood Cell Count 8.29 K/mm3 (4.00-11.30)
[2024-04-25] MEDS ORDERED: Morphine Sulfate 4 MG/1 ML Injection IV PRN (11:10)
[2024-04-25] MEDS ORDERED: ALTEPLASE 1 MG/ML IV SCH (11:20)
[2024-04-25] MEDS ORDERED: Albumin (Human) 25gm/100ml 100 ML IV PRN (11:25)
[2024-04-25] MEDS ORDERED: Alteplase Recombinant 2 MG / Vial IV ONE (11:25)
[2024-04-25] MEDS ORDERED: Insulin Human Lispro 100 Units/ML 3ML Syringe SC SCH (11:30)
[2024-04-25] MEDS ORDERED: Polyethylene Glycol 3350 17 gm PO PRN (12:20)
[2024-04-25] MEDS ORDERED: Bisacodyl 10 MG Supp PR PRN (12:20)
[2024-04-25] MEDS ORDERED: Magnesium Hydroxide Conc 10 ML UDC PO PRN (12:20)
[2024-04-25] MEDS ORDERED: Protein Supplement 30 ML UD PO SCH (12:30)
[2024-04-25] MEDS ORDERED: Vancomycin HCL 750 MG in NS 250 ML IV ONE (13:00)
[2024-04-25] MEDS ORDERED: Clindamycin 600mg in D5W 50 ML IV SCH (16:00)
[2024-04-25] MEDS ORDERED: Zinc Sulfate 220 MG Cap (Provides 50MG) PO SCH (18:00)
[2024-04-25] MEDS ORDERED: Vitamin B Cmplx/Vit C/Folic Ac 1 Tab PO SCH (18:00)
--- NOTE | 2024-04-25 18:12 | NUR ---
PT IS AOX4 AND COOPERATIVE OF CARE. PT HAD DIALYSIS TODAY AND TOLERATED WELL. PT IS TREATED FOR PAIN IN STUMP PER EMAR. PT HAD DR CHAVEZ CHANGE HER BRENNON DRESSING TODAY AND DID WELL NO SIGNS OF INFECTION. CALL LIGHT IS WITHIN REACH WILL CONTINUE TO MONITOR.
[2024-04-25] MEDS ORDERED: Sennosides 8.6 MG Tab PO SCH (21:00)
[2024-04-25] MEDS ORDERED: Insulin Glargine-Yfgn 100 Unit/mL 3 ML SYR SC SCH (21:00)
[2024-04-26] VITALS (20 sets, daily range): BP systolic 87–147; BP diastolic 40–88
[2024-04-26] MEDS ORDERED: Triamcinolone Acet 0.1% Ointment 15 GM TOP SCH (09:00)
[2024-04-26] MEDS ORDERED: Anticoagulant Sod Citrate Soln 3 ML SYR INJ PRN (09:20)
[2024-04-26 15:06] LABS: Hematocrit 25.8 % (33.0-51.0)
[2024-04-26 15:33] LABS: Magnesium, Blood 2.2 mg/dL (1.6-2.4)
[2024-04-26 15:42] LABS: Albumin, Blood 2.6 g/dL (3.4-5.0); Anion Gap 16 mmol/L (3-11); Blood Urea Nitrogen 15 mg/dL (8-24); CO2, Blood 27 mmol/L (21-32); Calcium, Blood 9.4 mg/dL (8.5-10.1); Chloride, Blood 98 mmol/L (98-108); Glomerular Filtration Rate 18 (60-); Glucose, Blood 239 mg/dL (70-99); Potassium, Blood 3.6 mmol/L (3.5-5.5); Sodium, Blood 137 mmol/L (136-145); Vancomycin, Random 22.4 ug/mL
[2024-04-26] MEDS ORDERED: Morphine Sulfate 4 MG/1 ML Injection IV PRN (15:45)
--- NOTE | 2024-04-26 17:40 | NUR ---
NO ACUTE CHANGES PT AOX4 AND COOPERATIVE OF CARE. PT DID DIALYSIS TO DAY AND SEEMS TO BE DOING WELL GETTING WEANED DOWN ON FREQUENCY OF IV PAIN MEDICATION. PT TREATED FOR L STUMP PAIN PER EMAR AND BRENNON PUMP WORKING WELL. NO DISTRESS NOTED AND ABLE TO MAKE NEEDS KNOWN. WILL CONTINUE TO MONITOR.
--- NOTE | 2024-04-27 01:42 | NUR ---
LATE SHIFT SUMMARY ENTRY SHIFT SUMMARY PT ALERT AND ORIENTED TIMES 3 . PT WAS TALKATIVE TO STAFF,AND APPEARED TO BE IN A POSITIVE MOOD. PT NPO AFTER MIDNITE FOR SCOPE PROCEDURE , GI BLEED.. PT COOPERATIVE WITH CARE. ABLE TO MAKE NEEDS KNOWN. PT WAS ST ELEVATED AT APPROX 0330 PER TELE. PT WAS ASSESSED, DENIED CHEST PAIN, BUT STATE HER RIGHT HIP WAS HURTING HER BADLY. GAVE FENT 12.5 mcg. AND LATER OXY, WHICH EVENTUALLY TOOK EFFECT. PT AGAIN FEELING 9 OF 10 PAIN. IV WAS LEAKING. REPLACED IV ON RIGHT FOREARM. IV FLUSHING WELL. NEW ORDER OBTAINED FOR FENT 25mcg q2PT USED BED TAN. CALL LIGHT WITHIN REACH, RAILS TIMES 2, BED IN LOW POSITION.
[2024-04-27 02:23] VITALS: BP 123/89
--- NOTE | 2024-04-27 04:31 | NUR ---
LATE SHIFT SUMMARY FOR 04/26/24 SHIFT SUMMARY PT ALERT AND ORIENTED TIMES 4 . PT ABLE TO MAKE NEEDS KNOWN TO STAFF. PT ATTENTIVE TO PAIN MEDICATION SCHEDULE AND ABLE TO ADVOCATE FOR SELF WHEN PAIN MEDICATION IS NEEDED. NO ISSUES WITH BRENNON PUMP. PT IS COOPERATIVE WITH CARE AND APPROPRIATE WITH CALL LIGHT. CALL LIGHT WITHIN REACH, RAILS TIMES 2, BED IN LOW POSITION.
[2024-04-27 06:35] LABS: Hematocrit 25.8 % (33.0-51.0); Hemoglobin 7.8 g/dL (11.5-16.0)
[2024-04-27 06:54] LABS: Albumin, Blood 2.6 g/dL (3.4-5.0); Anion Gap 12 mmol/L (3-11); Blood Urea Nitrogen 20 mg/dL (8-24); Bun/Creatinine Ratio 4.7 (12.0-20.0); CO2, Blood 29 mmol/L (21-32); Calcium, Blood 9.2 mg/dL (8.5-10.1); Chloride, Blood 97 mmol/L (98-108); Creatinine, Blood 4.24 mg/dL (0.40-1.00); Glomerular Filtration Rate 12 (60-); Glucose, Blood 363 mg/dL (70-99); Magnesium, Blood 2.4 mg/dL (1.6-2.4); Phosphorus, Blood 4.8 mg/dL (2.5-4.9); Potassium, Blood 4.5 mmol/L (3.5-5.5); Sodium, Blood 133 mmol/L (136-145); Vancomycin, Random 22.9 ug/mL
[2024-04-27 07:58] VITALS: BP 113/77
[2024-04-27] MEDS ORDERED: Morphine Sulfate 4 MG/1 ML Injection IV PRN (08:55)
--- NOTE | 2024-04-27 11:27 | NUR ---
MORNING NOTE ASSUMED CARE OF PATIENT AT APPROX. 0700. PATIENT ASLEEP IN BED ON BIPAP. PATIENT A&OX4. PATIENT HAS BILAT BKA. THE L BKA IS NEW. BRENNON DRESSING ON STUMP. MORNING MEDICATIONS PASSED WITHOUT ISSUE. PATIENT ON ROOM AIR AT 92-94%. PATIENT OCCASSIONALLY WEARS 2L WHEN NAPPING AND WHEN FEELING SHORT OF BREATH. PAIN MEDICATIONS GIVEN AT APPROX 0845. OT IN TO WORK WITH PATIENT. REPORT GIVEN TO MAGDALENO CORTES AT APPROX. 1115 TO ASSUMED CARE OF PATIENT.
--- NOTE | 2024-04-27 11:41 | NUR ---
RECEIVED REPORT AND ASSUMED CARE OF PT. SHE IS LYING IN BED WITH THE CALL LIGHT IN REACH, RESTING WITH HER EYES CLOSED.
[2024-04-27] MEDS ORDERED: Insulin Human Lispro 100 Units/ML 3ML Syringe SC SCH (12:30)
[2024-04-27 17:28] VITALS: BP 124/97
[2024-04-27 19:39] VITALS: BP 130/67
--- NOTE | 2024-04-27 19:40 | NUR ---
SHIFT SUMMARY: STEPHANIE IS A&OX4. VSS, NO ACUTE EVENTS THIS SHIFT, O2 VIA NC MAINTAINING SATS >90%, CONTINUOUS PULSE OX IN PLACE. SHE IS TOLERATING PO INTAKE WELL, IS ABLE TO TURN HERSELF IN BED WITH ONE-PERSON ASSIST, DRESSING TO LLE INTACT WITH BRENNON DRAIN. DRESSINGS TO BACK, COCCYX, AND BACK OF THIGHS CHANGED TODAY, BED BATH GIVEN, LINENS AND GOWN CHANGED. EDUCATED PT ON IMPORTANCE OF NOT SCRATCHING HER SKIN, RISK OF INFECTION FROM OPEN WOUNDS, AND SKIN CARE. PT IS INCONTINENT OF URINE. SHE REPORTS MODERATE PAIN RELIEF WITH MEDICATIONS PER MAR. POWERGLIDE TO DIANA PATENT, DOES NOT DRAW. SHE IS LYING IN BED WITH THE CALL LIGHT IN REACH. REPORT WAS GIVEN TO PIE FILLER RN.
[2024-04-28] VITALS (22 sets, daily range): BP systolic 78–147; BP diastolic 40–76
--- NOTE | 2024-04-28 00:41 | NUR ---
LATE SHIFT SUMMARY 04.27.24 SHIFT SUMMARY PT ALERT AND ORIENTED TIMES 4 . PT ABLE TO MAKE NEEDS KNOWN TO STAFF. PT ATTENTIVE TO PAIN MEDICATION SCHEDULE AND ABLE TO ADVOCATE FOR SELF WHEN PAIN MEDICATION IS NEEDED. PT HAD DIALYSIS YESTERDAY AND CONTINUES TO BE WEANED DOWN FROM PAIN MEDICATION. PT APPEARED TO SLEEP ON AND OFF THROUGH THE NIGHT AND USE C-PAP MACHINE. NO ISSUES WITH BRENNON PUMP. PT IS COOPERATIVE WITH CARE AND APPROPRIATE WITH CALL LIGHT. CALL LIGHT WITHIN REACH, RAILS TIMES 2, BED IN LOW POSITION.
[2024-04-28 05:31] LABS: Hematocrit 26.2 % (33.0-51.0); Hemoglobin 7.9 g/dL (11.5-16.0)
[2024-04-28 05:59] LABS: Albumin, Blood 2.7 g/dL (3.4-5.0); Anion Gap 16 mmol/L (3-11); Blood Urea Nitrogen 31 mg/dL (8-24); Bun/Creatinine Ratio 5.4 (12.0-20.0); CO2, Blood 27 mmol/L (21-32); Calcium, Blood 8.9 mg/dL (8.5-10.1); Chloride, Blood 94 mmol/L (98-108); Creatinine, Blood 5.71 mg/dL (0.40-1.00); Glomerular Filtration Rate 8 (60-); Glucose, Blood 391 mg/dL (70-99); Magnesium, Blood 2.5 mg/dL (1.6-2.4); Sodium, Blood 132 mmol/L (136-145); Vancomycin, Random 21.7 ug/mL
--- NOTE | 2024-04-28 06:25 | NUR ---
SHIFT SUMMARY PT ALERT AND ORIENTED TIMES 4 . PT ABLE TO MAKE NEEDS KNOWN TO STAFF. PT ATTENTIVE TO PAIN MEDICATION SCHEDULE AND ABLE TO ADVOCATE FOR SELF WHEN PAIN MEDICATION IS NEEDED. PT HAS DIALYSIS TODAY AND CONTINUES TO BE WEANED DOWN FROM PAIN MEDICATION. PT APPEARED TO SLEEP ON AND OFF THROUGH THE NIGHT AND USE C-PAP MACHINE. NO ISSUES WITH BRENNON PUMP. PT IS COOPERATIVE WITH CARE AND APPROPRIATE WITH CALL LIGHT. CALL LIGHT WITHIN REACH, RAILS TIMES 2, BED IN LOW POSITION.
[2024-04-29] VITALS (18 sets, daily range): BP systolic 90–140; BP diastolic 43–96
--- NOTE | 2024-04-29 05:33 | NUR ---
A&OX4, VSS, MEDICATED PER MAR FOR PAIN, SLEEPING AT THIS TIME, CALL LIGHT IN REACH, WILL CONT TO MONITOR UNTIL REPORT GIVEN TO ONCOMING NURSE.
[2024-04-29 06:36] LABS: Hematocrit 26.8 % (33.0-51.0)
[2024-04-29 06:59] LABS: Albumin, Blood 2.7 g/dL (3.4-5.0); Anion Gap 16 mmol/L (3-11); Blood Urea Nitrogen 28 mg/dL (8-24); CO2, Blood 25 mmol/L (21-32); Chloride, Blood 98 mmol/L (98-108); Creatinine, Blood 4.66 mg/dL (0.40-1.00); Glomerular Filtration Rate 10 (60-); Glucose, Blood 413 mg/dL (70-99); Magnesium, Blood 2.3 mg/dL (1.6-2.4); Phosphorus, Blood 4.4 mg/dL (2.5-4.9); Potassium, Blood 4.7 mmol/L (3.5-5.5); Sodium, Blood 134 mmol/L (136-145)
--- NOTE | 2024-04-29 09:12 | NUR ---
THIS RN CALLED TO NOTIFY OF PT'S BLOOD GLUCOSE. INSULIN GIVEN PER EMAR. GLARGINE ADJUSTED BY PROVIDER. NO OTHER NEW ORDERS AT THIS TIME.
--- NOTE | 2024-04-29 18:33 | NUR ---
SHIFT SUMMARY PT A&OX4, VSS, BEDRIDDEN, TOLERATING PO, AND PAIN MANAGED PER EMAR. PT HAD DIALYSIS TX THIS SHIFT AND TOLERATED IT WELL. PT HAD LARGE BM, SUPPOSITORY NOT NEEDED AT THIS TIME. WOUND CARE/DRESSING CHANGE COMPLETED PER ORDER. NO OTHER ACUTE CHANGES. CALL LIGHT WITHIN REACH AND PT ABLE TO MAKE NEEDS KNOWN.
[2024-04-29] MEDS ORDERED: Insulin Glargine-Yfgn 100 Unit/mL 3 ML SYR SC SCH (21:00)
[2024-04-30] VITALS (16 sets, daily range): BP systolic 83–190; BP diastolic 48–81
[2024-04-30 05:33] LABS: Hematocrit 26.7 % (33.0-51.0); Hemoglobin 8.1 g/dL (11.5-16.0)
--- NOTE | 2024-04-30 05:54 | NUR ---
SHIFT SUMMARY NOC PT A/O X 4. PLEASANT AND COOPERATIVE WITH CARE. BP WITHIN PARAMETERS AND SCHEDULED MIDODRINE GIVEN. HS CBG 358, RESIDENT NOTIFIED AND 5 UNITS OF LISPRO GIVEN PER SLIDING SCALE ALONG WITH 35 UNITS LONG ACTING. RESIDENT STATED THAT THEY WOULD PASS ALONG TO ONCOMING MD ABOUT POSSIBLY INCREASING COVERAGE. PT L BKA DRESSING C/D/I WITH STUMP SOCK IN PLACE. PERM CATH IN RUCW DRESSING C/D/I. PT HAS POWERGLIDE IN DIANA THAT DOES NOT DRAW. PT ON 2L/NC SPO2 >92% AND USING CPAP FOR SLEEP. PT PAIN BEING MANAGED PER EMAR. PT DISCHARGE IS PENDING TRANSPORTATION ARRANGEMENTS TO HD APPOINTMENTS. 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 PT CURRENTLY RESTING WITH BED IN LOWEST POSITION, AND CALL LIGHT WITHIN REACH.
[2024-04-30 06:12] LABS: Albumin, Blood 2.9 g/dL (3.4-5.0); Anion Gap 15 mmol/L (3-11); Blood Urea Nitrogen 34 mg/dL (8-24); Bun/Creatinine Ratio 7.4 (12.0-20.0); CO2, Blood 27 mmol/L (21-32); Calcium, Blood 8.6 mg/dL (8.5-10.1); Chloride, Blood 94 mmol/L (98-108); Creatinine, Blood 4.61 mg/dL (0.40-1.00); Glomerular Filtration Rate 11 (60-); Glucose, Blood 480 mg/dL (70-99); Magnesium, Blood 2.3 mg/dL (1.6-2.4); Phosphorus, Blood 3.8 mg/dL (2.5-4.9); Sodium, Blood 131 mmol/L (136-145)
[2024-04-30] MEDS ORDERED: Insulin Human Lispro 100 Units/ML 3ML Syringe SC SCH (07:30)
[2024-04-30] MEDS ORDERED: Anticoagulant Sod Citrate Soln 3 ML SYR INJ PRN (07:35)
[2024-04-30] MEDS ORDERED: Insulin Human Lispro 100 Units/ML 3ML Syringe SC ONE (08:00)
--- NOTE | 2024-04-30 09:29 | NUR ---
THIS RN CALLED TO NOTIFY OF PT'S BLOOD GLUCOSE. INSULIN GIVEN PER EMAR.
--- NOTE | 2024-04-30 17:56 | NUR ---
SHIFT SUMMARY PT HAD DIALYSIS AND TOLERATED IT WELL. BLOOD GLUCOSE 443 THIS AM AND MEDICATED PER EMAR, SEE PREVIOUS NOTE. NO OTHER ACUTE CHANGES. CALL LIGHT WITHIN REACH AND PT ABLE TO MAKE NEEDS KNOWN.
[2024-05-01 02:10] VITALS: BP 114/78
--- NOTE | 2024-05-01 05:32 | NUR ---
SHIFT SUMMARY NOC PT A/O X 4. PLEASANT AND COOPERATIVE WITH CARE. VSS. HS CBG 185 AND SCHEDULED DOSES OF LISPRO 7 UNITS AND GLARGINE 35 UNITS GIVEN. PT CHRONIC PAIN BEING MANAGED PER EMAR. PERM CATH IN RUCW C/D/I. POWERGLIDE IN DIANA. ON 2L/NC AND CPAP FOR SLEEP SPO2 >92% ON BIOX. DRESSING ON L BKA C/D/I. PT DISCHARGE AWAITING TRANSPORTATION ARRANGEMENTS TO HD APPOINTMENTS. PT IN CONTACT ISOLATION FOR MRSA/ VRE. PT CURRENTLY RESTING WITH BED IN LOWEST POSITION, AND CALL LIGHT WITHIN REACH.
[2024-05-01 05:58] LABS: Hematocrit 29.1 % (33.0-51.0); Hemoglobin 8.8 g/dL (11.5-16.0)
[2024-05-01 06:30] LABS: Albumin, Blood 3.1 g/dL (3.4-5.0); Anion Gap 17 mmol/L (3-11); Blood Urea Nitrogen 33 mg/dL (8-24); Bun/Creatinine Ratio 7.3 (12.0-20.0); CO2, Blood 28 mmol/L (21-32); Calcium, Blood 8.9 mg/dL (8.5-10.1); Chloride, Blood 92 mmol/L (98-108); Creatinine, Blood 4.54 mg/dL (0.40-1.00); Glomerular Filtration Rate 11 (60-); Glucose, Blood 380 mg/dL (70-99); Magnesium, Blood 2.1 mg/dL (1.6-2.4); Phosphorus, Blood 3.6 mg/dL (2.5-4.9); Potassium, Blood 4.5 mmol/L (3.5-5.5); Sodium, Blood 132 mmol/L (136-145)
[2024-05-01 08:02] VITALS: BP 115/41
[2024-05-01] MEDS ORDERED: OxyCODONE 10/Acetamin 325 TABLET PO PRN (12:05)
[2024-05-01] MEDS ORDERED: Insulin Human Lispro 100 Units/ML 3ML Syringe SC SCH (16:30)
[2024-05-01 16:44] VITALS: BP 95/80
--- NOTE | 2024-05-01 18:41 | NUR ---
SHIFT SUMMARY: PT A&O X4. PLEASANT AND COOPERATIVE WITH CARE. DIALYSIS OFFERED TO PT THIS AM BUT PT DECLINED STATING SHE WOULD HAVE IT DONE TOMORROW 05-02-24. PT BED BOUND D/T AMPUTATIONS. POWERGLIDE IN MERON FLUSHES WELL. BED BATH PROVIDED THIS SHIFT. ALL WOUNDS/SCRATCHES/REDDENED AREAS CLEANSED WITH CREAM AND POWDER APPLIED PER PT REQUEST. WILL SPEAK WITH GENERAL FOUNDRY WORKER RN REGARDING APPLYING MEPILEXES TO OPEN AREA CREAM WAS APPLIED. INSULIN INCREASED THIS SHIFT. PAIN MEDICATIONS PROVIDED PER EMAR. CALL LIGHT IN REACH. BED IN LOWEST POSITION.
[2024-05-01] MEDS ORDERED: Insulin Glargine-Yfgn 100 Unit/mL 3 ML SYR SC SCH (21:00)
[2024-05-01 21:39] VITALS: BP 139/75
[2024-05-02] VITALS (16 sets, daily range): BP systolic 89–160; BP diastolic 38–97
--- NOTE | 2024-05-02 05:18 | NUR ---
SHIFT SUMMARY NOC PT A/O X 4. PLEASANT AND COOPERATIVE WITH CARE. VSS. HS CBG 146 AND SCHEDULED 10 UNITS LISPRO AND 40 UNITS GLARGINE GIVEN. PT CHRONIC PAIN BEING MANAGED PER EMAR. MEPILEX DRESSING ON BACKSIDE REPLACED AND C/D/I. L BKA DRESSING C/D/I. PT ON 2L/NC AND CPAP SPO2 >92%. POWERGLIDE IN DIANA. PT COULD DISCHARGE TODAY IF TRANSPORTATION TO AND FROM DIALYSIS CAN BE ESTABLISHED. PT CURRENTLY RESTING WITH BED IN LOWEST POSITION, AND CALL LIGHT WITHIN REACH.
[2024-05-02 06:12] LABS: Hemoglobin 8.4 g/dL (11.5-16.0)
[2024-05-02 06:39] LABS: Albumin, Blood 2.9 g/dL (3.4-5.0); Anion Gap 14 mmol/L (3-11); Blood Urea Nitrogen 53 mg/dL (8-24); Bun/Creatinine Ratio 8.5 (12.0-20.0); CO2, Blood 30 mmol/L (21-32); Chloride, Blood 94 mmol/L (98-108); Glomerular Filtration Rate 7 (60-); Glucose, Blood 96 mg/dL (70-99); Magnesium, Blood 2.2 mg/dL (1.6-2.4); Phosphorus, Blood 3.5 mg/dL (2.5-4.9); Potassium, Blood 4.9 mmol/L (3.5-5.5); Sodium, Blood 133 mmol/L (136-145)
[2024-05-02] MEDS ORDERED: Anticoagulant Sod Citrate Soln 3 ML SYR INJ PRN (07:45)
--- NOTE | 2024-05-02 08:26 | NUR ---
PT TAKEN TO DIALYSIS BY OFFICE SYSTEM ANALYST AND BREAK RN @ APPROX 0889.
[2024-05-02] MEDS ORDERED: DOCU100 PO (12:18)
[2024-05-02] MEDS ORDERED: Percocet 10-321 EACH PO (12:18)
[2024-05-02] MEDS ORDERED: VISBIOME 112.51 EACH PO (12:18)
[2024-05-02] MEDS ORDERED: Insulin Human Lispro 100 Units/ML 3ML Syringe SC SCH (17:30)
--- NOTE | 2024-05-02 18:05 | NUR ---
SHIFT SUMMARY NO ACUTE CHANGES THIS SHIFT, DIALYSIS COMPLETED THIS AM, PLAN FOR DC TOMORROROW TO HOME. FAIR APPETITE, SON BRINGING IN CANDY DESPITE PT DIET AND STAFF ENCOURAGEMENT OF STICKING TO DIET ORDERED BY PROVIDER. TREATED FOR PAIN PER EMAR. VSS. INSULIN ADMINISTERED PER EMAR. PT CURRENTLY RESTING IN HOSPITAL BED, SLEEPING, BED IN LOWEST POSITION AND CALL LIGHT WITHIN REACH. PT USES CALL LIGHT APPROPRIATELY.
[2024-05-03] VITALS (12 sets, daily range): BP systolic 89–158; BP diastolic 52–85
--- NOTE | 2024-05-03 03:07 | NUR ---
SHIFT SUMMARY NO ACUTE EVENTS DURING THIS SHIFT. MEDICATED PER EMAR 12/14 LEFT BKA PHANTOM PAIN. PT A/O X4, SMILING, NO ACUTE DISTRESS NOTED. HS B. PLAN IS TO D/C TODAY HOME @0900. BED AT THE LOWEST POSITION, CALL LIGHT WITHIN REACH. PT IS ABLE TO MAKE HER NEEDS KNOWN.
[2024-05-03 05:42] LABS: Hematocrit 26.2 % (33.0-51.0); Hemoglobin 7.9 g/dL (11.5-16.0)
[2024-05-03 06:14] LABS: Anion Gap 15 mmol/L (3-11); Blood Urea Nitrogen 61 mg/dL (8-24); Bun/Creatinine Ratio 9.1 (12.0-20.0); CO2, Blood 27 mmol/L (21-32); Calcium, Blood 8.5 mg/dL (8.5-10.1); Chloride, Blood 93 mmol/L (98-108); Creatinine, Blood 6.69 mg/dL (0.40-1.00); Glomerular Filtration Rate 7 (60-); Glucose, Blood 439 mg/dL (70-99); Magnesium, Blood 2.3 mg/dL (1.6-2.4); Phosphorus, Blood 3.4 mg/dL (2.5-4.9); Potassium, Blood 5.6 mmol/L (3.5-5.5); Sodium, Blood 129 mmol/L (136-145)
[2024-05-03] MEDS ORDERED: Anticoagulant Sod Citrate Soln 3 ML SYR INJ PRN (08:00)
--- NOTE | 2024-05-03 10:54 | NUR ---
DISCHARGE NOTE PT DISCHARGED HOME AT 1012. PT PROVIDED W/ VERBAL AND WRITTEN INSTRUCTIONS AND REPORTED UNDERSTANDING. PT A&OX4, VSS, LIFT, TOLERATING PO, VOIDING, AND PAIN MANAGED PER EMAR. HARD SCRIPTS GIVEN, COPIES PLACED IN CHART. BELONGINGS WERE RETURNED AND PT ESCOURTED OUT VIA W/C BY TRANSPORT. FACE SHEET GIVEN TO TRANSPORT.
--- NOTE | 2024-05-03 10:57 | NUR ---
THIS RN CALLED DR. VEGA TO NOTIFY OF PT'S BLOOD GLUCOSE OF 436. PER PROVIDER, GIVE INSULIN PER EMAR. NO NEW ORDERS AT THIS TIME.
== END 2024-05-03 10:18 | disposition home or self-care (01) | DRG 239 ==
LOC: ER 19:36 → ERHOLD 04-22 00:16 → MEDS 04-22 00:16
PROVIDERS: Emergency Medicine; Internal Medicine Nephrology; Orthopaedic Surgery; Student in an Organized Health Care Education/Training Program; ADMIT Student in an Organized Health Care Education/Training Program
PROC: 5A09357 Assistance with Respiratory Ventilation, Less than 24 Consecutive Hours, Continuous Positive Airway Pressure (ICD-10-PCS; 2024-04-22)
PROC: 0Y6J0Z1 Detachment at Left Lower Leg, High, Open Approach (ICD-10-PCS; principal; 2024-04-22 16:00)
PROC: 5A1D70Z Performance of Urinary Filtration, Intermittent, Less than 6 Hours Per Day (ICD-10-PCS; 2024-04-23)
DX: E11.52 Type 2 diabetes mellitus with diabetic peripheral angiopathy with gangrene (principal); N18.6 End stage renal disease; I12.0 Hypertensive chronic kidney disease with stage 5 chronic kidney disease or end stage renal disease; L97.516 Non-pressure chronic ulcer of other part of right foot with bone involvement without evidence of necrosis; N25.81 Secondary hyperparathyroidism of renal origin; I13.2 Hypertensive heart and chronic kidney disease with heart failure and with stage 5 chronic kidney disease, or end stage renal disease; F11.20 Opioid dependence, uncomplicated; E87.1 Hypo-osmolality and hyponatremia; Z68.42 Body mass index [BMI] 45.0-49.9, adult; S81.802A Unspecified open wound, left lower leg, initial encounter; E11.22 Type 2 diabetes mellitus with diabetic chronic kidney disease; Z99.2 Dependence on renal dialysis; Z89.512 Acquired absence of left leg below knee; E88.09 Other disorders of plasma-protein metabolism, not elsewhere classified; J44.9 Chronic obstructive pulmonary disease, unspecified; I50.9 Heart failure, unspecified; M19.90 Unspecified osteoarthritis, unspecified site; G47.30 Sleep apnea, unspecified; Z89.611 Acquired absence of right leg above knee; E66.01 Morbid (severe) obesity due to excess calories; Z86.14 Personal history of Methicillin resistant Staphylococcus aureus infection; E11.621 Type 2 diabetes mellitus with foot ulcer; F41.8 Other specified anxiety disorders; D63.1 Anemia in chronic kidney disease; G47.33 Obstructive sleep apnea (adult) (pediatric); L97.529 Non-pressure chronic ulcer of other part of left foot with unspecified severity; Z88.0 Allergy status to penicillin; Z91.048 Other nonmedicinal substance allergy status; Z90.710 Acquired absence of both cervix and uterus; Z98.890 Other specified postprocedural states; Z79.899 Other long term (current) drug therapy; E87.5 Hyperkalemia
CPT/HCPCS: 36415; 73630; 80048; 80053; 80069; 80202; 82947; 83735; 85014; 85018; 85025; 85651; 86140; 87040; 87077; 87186; 88307; 93926; 93971; 94640; 94660; 94664; 94760; 94762; 96365; 96375; 96376; 99285-25; A9270; J0171; J0881; J1100; J1171; J1815; J2250; J2270; J2371; J2405; J2704; J2997; J3010; J3370; J7030; J7040; J7050; P9047

== ENCOUNTER 2024-06-03 21:24 | Inpatient (IN) | payer MEDICARE, OTHER ==
[~2024-06-03] VITALS: Ht 182.9 cm; Wt 131.1 kg
[~2024-06-03 21:24] MED LIST changes: +DOCU100 PO; +Percocet 10-321 EACH PO
[2024-06-03] MEDS ORDERED: Clindamycin 600mg in D5W 50 ML IV ONE (22:20)
[2024-06-03] MEDS ORDERED: Morphine Sulfate 4 MG/1 ML Injection IV ONE (22:20)
[2024-06-03 22:25] LABS: BASOPHILS ABSOLUTE AUTO 0.06 K/mm3 (0.00-0.23); BASOPHILS PERCENT AUTO 0 % (0-2); EOSINOPHILS ABSOLUTE AUTO 0.19 K/mm3 (0.00-0.68); EOSINOPHILS PERCENT AUTO 1 % (0-6); Hematocrit 31.9 % (33.0-51.0); Hemoglobin 9.9 g/dL (11.5-16.0); IMMATURE GRAN ABSOLUTE AUTO 0.04 K/mm3 (0.00-0.10); IMMATURE GRAN PERCENT AUTO 0 % (0-1); LYMPHOCYTES ABSOLUTE AUTO 0.48 K/mm3 (0.84-5.20); LYMPHOCYTES PERCENT AUTO 4 % (21-46); MONOCYTES ABSOLUTE AUTO 0.76 K/mm3 (0.16-1.47); MONOCYTES PERCENT AUTO 6 % (4-13); Mean Corpuscular HGB 29.6 pg (26.0-34.0); Mean Corpuscular Volume 95 fL (80-100); NEUTROPHILS ABSOLUTE AUTO 11.91 K/mm3 (1.96-9.15); NEUTROPHILS PERCENT AUTO 89 % (41-73); Platelet Count 267 K/mm3 (150-400); RDW Coefficient Variation 16.9 % (11.7-14.2); Red Blood Cell Count 3.35 M/mm3 (3.80-5.20); White Blood Cell Count 13.44 K/mm3 (4.00-11.30)
[2024-06-03 22:35] LABS: C-REACTIVE PROTEIN, EXT RANGE 12.9 mg/dL (0.000-0.300); Calcium, Blood 8.4 mg/dL (8.5-10.1); Creatinine, Blood 3.7 mg/dL (0.40-1.00); Potassium, Blood 3.5 mmol/L (3.5-5.5)
[2024-06-04] VITALS (19 sets, daily range): BP systolic 100–150; BP diastolic 32–96
[2024-06-04] MEDS ORDERED: Acetaminophen 325 MG TABLET PO PRN (02:00)
[2024-06-04] MEDS ORDERED: FentaNYL Citrate 50 MCG/ML 2 ML Injection IV PRN (02:05)
[2024-06-04] MEDS ORDERED: Ondansetron HCl 2 MG / ML 2ML Vial IV PRN (02:05)
[2024-06-04] MEDS ORDERED: OxyCODONE HCL 5 MG TAB PO PRN (02:05)
[2024-06-04] MEDS ORDERED: FLU VACC TS2024-25(6MOS UP)/PF 45 MCG/0.5 ML SYRINGE IM ONE (02:05)
[2024-06-04] MEDS ORDERED: Naloxone HCl 0.4MG / ML 1ML Vial IV PRN (02:05)
[2024-06-04] MEDS ORDERED: Vancomycin HCL 2,000 MG in NS 500 ML IV ONE (02:25)
[2024-06-04] MEDS ORDERED: Morphine Sulfate 4 MG/1 ML Injection IV PRN (02:50)
[2024-06-04] MEDS ORDERED: Lactated Ringer's 1,000 ML IV SCH (03:00)
[2024-06-04] MEDS ORDERED: Morphine Sulfate 4 MG/1 ML Injection IV ONE (03:00)
[2024-06-04] MEDS ORDERED: Morphine Sulfate 4 MG/1 ML Injection ONE (03:07)
[2024-06-04] MEDS ORDERED: Meropenem 1,000 MG in NS 100 ML IV SCH (05:36)
[2024-06-04] MEDS ORDERED: Insulin Regular 100 UNIT/ML 10ML Vial SC SCH (06:00)
[2024-06-04 06:04] LABS: BASOPHILS ABSOLUTE AUTO 0.05 K/mm3 (0.00-0.23); BASOPHILS PERCENT AUTO 1 % (0-2); EOSINOPHILS ABSOLUTE AUTO 0.23 K/mm3 (0.00-0.68); EOSINOPHILS PERCENT AUTO 2 % (0-6); Hematocrit 30.9 % (33.0-51.0); Hemoglobin 9.3 g/dL (11.5-16.0); IMMATURE GRAN ABSOLUTE AUTO 0.04 K/mm3 (0.00-0.10); IMMATURE GRAN PERCENT AUTO 0 % (0-1); LYMPHOCYTES ABSOLUTE AUTO 0.55 K/mm3 (0.84-5.20); LYMPHOCYTES PERCENT AUTO 6 % (21-46); MONOCYTES ABSOLUTE AUTO 0.68 K/mm3 (0.16-1.47); MONOCYTES PERCENT AUTO 7 % (4-13); Mean Corpuscular HGB 29.2 pg (26.0-34.0); Mean Corpuscular HGB Conc 30.1 g/dL (31.5-36.5); Mean Corpuscular Volume 97 fL (80-100); Mean Platelet Volume 11.1 fL (9.1-12.4); NEUTROPHILS ABSOLUTE AUTO 7.92 K/mm3 (1.96-9.15); NEUTROPHILS PERCENT AUTO 84 % (41-73); Platelet Count 261 K/mm3 (150-400); RDW Coefficient Variation 17.1 % (11.7-14.2); RDW Standard Deviation 61.5 fL (35.1-46.3); Red Blood Cell Count 3.18 M/mm3 (3.80-5.20); White Blood Cell Count 9.47 K/mm3 (4.00-11.30)
[2024-06-04] MEDS ORDERED: Benzonatate 100 MG Cap PO PRN (06:05)
[2024-06-04] MEDS ORDERED: BusPIRone HCl 10 MG Tab PO PRN (06:10)
[2024-06-04] MEDS ORDERED: DiphenhydrAMINE HCl 50 MG Cap PO PRN (06:10)
[2024-06-04] MEDS ORDERED: OxyCODONE 10/Acetamin 325 TABLET PO PRN ×2 (06:15→18:25)
[2024-06-04] MEDS ORDERED: GuaiFENesin 600 MG TabCR PO PRN (06:15)
[2024-06-04] MEDS ORDERED: Albuterol 2.5 MG/3 ML VIAL INH PRN (06:15)
[2024-06-04 06:30] LABS: Albumin, Blood 2.5 g/dL (3.4-5.0); Anion Gap 12 mmol/L (3-11); Blood Urea Nitrogen 27 mg/dL (8-24); Bun/Creatinine Ratio 6.5 (12.0-20.0); CO2, Blood 31 mmol/L (21-32); Chloride, Blood 95 mmol/L (98-108); Creatinine, Blood 4.14 mg/dL (0.40-1.00); Glomerular Filtration Rate 12 (60-); Glucose, Blood 297 mg/dL (70-99); Phosphorus, Blood 4.6 mg/dL (2.5-4.9); Potassium, Blood 3.8 mmol/L (3.5-5.5); Sodium, Blood 134 mmol/L (136-145)
[2024-06-04] MEDS ORDERED: Mometasone/Formoterol MDI 100/5 mcg 13 GM INH SCH (06:50)
[2024-06-04] MEDS ORDERED: Sevelamer Carbonate 800 MG Tab PO SCH (08:30)
[2024-06-04] MEDS ORDERED: Calcium Acetate 667 MG Gel Cap PO SCH (08:30)
[2024-06-04] MEDS ORDERED: Albumin (Human) 25gm/100ml 100 ML IV SCH (08:55)
[2024-06-04] MEDS ORDERED: Sodium Zirconium Cyclosilicate 10 GM Packet PO SCH (09:00)
[2024-06-04] MEDS ORDERED: Docusate Sodium 100 MG Cap PO SCH (09:00)
[2024-06-04] MEDS ORDERED: FLUoxetine HCL 20 MG CAP PO SCH (09:00)
[2024-06-04] MEDS ORDERED: Midodrine 5 MG Tab PO SCH (09:00)
[2024-06-04] MEDS ORDERED: Lactobacil 2-S.Thermo-Bifido 1 1 Cap PO SCH (09:00)
[2024-06-04] MEDS ORDERED: Enoxaparin 40 MG/0.4 ML SYR SC SCH (09:00)
[2024-06-04 14:59] LABS: Bun/Creatinine Ratio 6.3 (12.0-20.0); Calcium, Blood 8.6 mg/dL (8.5-10.1); Creatinine, Blood 2.68 mg/dL (0.40-1.00); Magnesium, Blood 2.1 mg/dL (1.6-2.4); Phosphorus, Blood 3.5 mg/dL (2.5-4.9); Potassium, Blood 3.2 mmol/L (3.5-5.5)
[2024-06-04] MEDS ORDERED: Heparin Sodium 5000 Units/ML 1ML MDV SC SCH (16:00)
--- NOTE | 2024-06-04 18:42 | NUR ---
ADMISSION NOTE: PATIENT ARRIVES TO ROOM VIA GURNEY AT 1715 FROM ER FOR DX'S OF CELLULITIS TO L STUMP. PATIENT TRANSFERRED TO BED USING CEILING LIFT c 3 MAX ASSIST. PATIENT ADMISSION, MEDRIC AND SKIN ASSESSMENT c 2 RN'S VERIFIED COMPLETED. PATIENT HAS SKIN EXCORIATION AND MULTIPLE OPEN SORE (SEE PICTURE IN CHART). DR. MADERA NOTIFIED, RECEIVED ORDER FOR MICONAZOLE POWDER BID. MIPELEX DRESSING PLACED TO COCCYX. PATIENT CELLULITIS TO L STUMP JORDAN. PATIENT REPORTS PAIN TO L STUMP, MEDICATED PER EMAR. PATIENT HAS PERMCATH TO R UPPER CHEST WALL. PATIENT ON TELE, NSR HR IN THE HIGH 80'S BPM. PATIENT DENIES CP/PRESSURE, N/V AND DIZZINESS. PATIENT ON O2 2L, SATTING 97%. PATIENT INCONTINENT OF BLADDER, ZACHARY CARE AND ATTENDS CHANGED. PATIENT HAS PIV TO LAC AND R HAND. CALL LIGHT IN REACH.
[2024-06-04] MEDS ORDERED: Darbepoetin Alfa In Albumn Sol 40 MCG/0.4 ML SC SCH (19:00)
[2024-06-04] MEDS ORDERED: Gabapentin 300 MG Cap PO SCH (21:00)
[2024-06-04] MEDS ORDERED: Insulin Glargine-Yfgn 100 Unit/mL 3 ML SYR SC SCH (21:00)
[2024-06-04] MEDS ORDERED: Montelukast Sodium 10 MG Tab PO SCH (21:00)
[2024-06-04] MEDS ORDERED: Miconazole Nitrate 2% 85 GM PWD TOP SCH (21:00)
[2024-06-05 03:47] VITALS: BP 112/48
[2024-06-05 05:38] LABS: Hemoglobin 10.2 g/dL (11.5-16.0)
[2024-06-05] MEDS ORDERED: Levothyroxine Sodium 0.125 MG Tab PO SCH (06:00)
[2024-06-05] MEDS ORDERED: Pantoprazole Sodium 40 MG Tab PO SCH (06:00)
[2024-06-05 06:05] LABS: Magnesium, Blood 2.2 mg/dL (1.6-2.4)
[2024-06-05 06:06] LABS: Albumin, Blood 3.1 g/dL (3.4-5.0); Anion Gap 13 mmol/L (3-11); Blood Urea Nitrogen 29 mg/dL (8-24); Bun/Creatinine Ratio 8.1 (12.0-20.0); CO2, Blood 33 mmol/L (21-32); Calcium, Blood 8.8 mg/dL (8.5-10.1); Chloride, Blood 93 mmol/L (98-108); Creatinine, Blood 3.56 mg/dL (0.40-1.00); Glomerular Filtration Rate 15 (60-); Glucose, Blood 298 mg/dL (70-99); Phosphorus, Blood 5.4 mg/dL (2.5-4.9); Potassium, Blood 3.5 mmol/L (3.5-5.5); Sodium, Blood 135 mmol/L (136-145); Vancomycin, Trough 14.4 ug/mL (5.0-10.0)
[2024-06-05] MEDS ORDERED: Vancomycin HCL 1,250 MG in NS 250 ML IV ONE (07:30)
[2024-06-05 07:39] VITALS: BP 117/50
[2024-06-05 12:05] VITALS: BP 128/54
[2024-06-05] MEDS ORDERED: Insulin Regular 100 UNIT/ML 10ML Vial SC SCH (13:10)
--- NOTE | 2024-06-05 13:12 | NUR ---
NOTE: PATIENT BLOOD SUGAR BEFORE LUNCH WAS 395 ON LOW SLIDING REGULAR INSULIN COVERAGE. NOTIFIED DR. MADERA, RECEIVED ORDER TO CHANGED TO HIGH SLIDING SCALE ON REGULAR INSULIN COVERAGE.
[2024-06-05] MEDS ORDERED: NS 250 ML IV PRN (15:15)
[2024-06-05 16:08] VITALS: BP 127/52
--- NOTE | 2024-06-05 17:28 | NUR ---
SHIFT SUMMARY: PATIENT A/OX4, PLEASANT AND COOPERATIVE c CARE. PATIENT MEDICATED FOR PAIN TO L STUMP PER EMAR c GOOD EFFECT. PATIENT DENIES CP/PRESSURE, SOB, N/V AND DIZZINESS. PATIENT ON TELE, NSR HR IN THE 80'S BPM c OCCASIONAL BBB. PATIENT O2 AT BASELINE 2-2.5L VIA NC, SATTING 99-100%. PATIENT CELLULITIS/OPEN SORE TO L STUMP JORDAN. DR. BURTON (ORTHO) CAME BY THIS AM, DISCUSSED c PATIENT REGARDING PLAN OF CARE; NPO AT MS, HOLD HEPARIN DOSE AND POSSIBLE SURGERY SOMETIMES TOMORROW 06/06/24. PATIENT RECEIVED IV ABX/SCHEDULED MEDS PER EMAR. PATIENT BLOOD SUGAR RANGES 290'S-390'S THIS SHIFT, RECEIVED INSULIN COVERAGED PER EMAR. MRI DONE TODAY, AWAITING FOR RESULT. VITAL SIGNS REVIEWED. CALL LIGHT IN REACH.
[2024-06-05 20:14] VITALS: BP 99/62
[2024-06-06] VITALS (29 sets, daily range): BP systolic 96–140; BP diastolic 36–70
--- NOTE | 2024-06-06 05:15 | NUR ---
SHIFT SUMMARY: STEPHANIE IS A&OX4. VSS, NO ACUTE EVENTS OVERNIGHT. PT REPORTS ADEQUATE PAIN CONTROL WITH MEDICATIONS PER MAR. SHE TOLERATED PO INTAKE WELL PRIOR TO BEING MADE NPO AT MIDNIGHT AND IS RESTING QUIETLY WITH HER EYES CLOSED AND EVEN, UNLABORED RESPIRATIONS AT THIS TIME. PERMACATH TO RIGHT UPPER CHEST WALL. O2 VIA NC MAINTAINING HER SATS >90%. PT DID NOT USE HER BIPAP THIS SHIFT. PLAN, PER CHART, IS FOR DIALYSIS TODAY AND POSSIBLE I&D OF LLE. MRI DONE YESTERDAY, REPORT IN CHART. SHE IS LYING IN BED WITH THE CALL LIGHT IN REACH, BED IN LOWEST POSITION. WILL GIVE REPORT TO DAY SHIFT RN.
[2024-06-06 08:28] LABS: BASOPHILS ABSOLUTE AUTO 0.06 K/mm3 (0.00-0.23); BASOPHILS PERCENT AUTO 1 % (0-2); EOSINOPHILS ABSOLUTE AUTO 0.47 K/mm3 (0.00-0.68); EOSINOPHILS PERCENT AUTO 8 % (0-6); Hematocrit 30.8 % (33.0-51.0); Hemoglobin 9.4 g/dL (11.5-16.0); IMMATURE GRAN ABSOLUTE AUTO 0.03 K/mm3 (0.00-0.10); IMMATURE GRAN PERCENT AUTO 1 % (0-1); LYMPHOCYTES ABSOLUTE AUTO 0.64 K/mm3 (0.84-5.20); LYMPHOCYTES PERCENT AUTO 11 % (21-46); MONOCYTES ABSOLUTE AUTO 0.53 K/mm3 (0.16-1.47); MONOCYTES PERCENT AUTO 9 % (4-13); Mean Corpuscular HGB 28.8 pg (26.0-34.0); Mean Corpuscular HGB Conc 30.5 g/dL (31.5-36.5); Mean Corpuscular Volume 95 fL (80-100); Mean Platelet Volume 10.9 fL (9.1-12.4); NEUTROPHILS PERCENT AUTO 71 % (41-73); Platelet Count 253 K/mm3 (150-400); RDW Coefficient Variation 16.4 % (11.7-14.2); RDW Standard Deviation 57.3 fL (35.1-46.3); Red Blood Cell Count 3.26 M/mm3 (3.80-5.20); White Blood Cell Count 6.03 K/mm3 (4.00-11.30)
[2024-06-06 08:51] LABS: Magnesium, Blood 2.2 mg/dL (1.6-2.4)
[2024-06-06 08:53] LABS: Alanine Aminotransfer (ALT/SGP 28 U/L (12-78); Albumin, Blood 2.6 g/dL (3.4-5.0); Albumin/Globulin Ratio 0.7 (0.8-1.8); Alk Phos 232 U/L (50-136); Anion Gap 13 mmol/L (3-11); Aspartate Aminotrans (AST/SGOT 10 U/L (12-37); Bilirubin, Total 0.5 mg/dL (0.1-1.0); Blood Urea Nitrogen 37 mg/dL (8-24); Bun/Creatinine Ratio 7.6 (12.0-20.0); CO2, Blood 31 mmol/L (21-32); Calcium, Blood 8.4 mg/dL (8.5-10.1); Chloride, Blood 96 mmol/L (98-108); Creatinine, Blood 4.84 mg/dL (0.40-1.00); Globulin, Blood 3.7 g/dL (2.2-4.0); Glomerular Filtration Rate 10 (60-); Glucose, Blood 164 mg/dL (70-99); Phosphorus, Blood 6.5 mg/dL (2.5-4.9); Potassium, Blood 3.8 mmol/L (3.5-5.5); Sodium, Blood 136 mmol/L (136-145); Total Protein, Blood 6.3 g/dL (6.4-8.2); Vancomycin, Random 24.9 ug/mL
[2024-06-06] MEDS ORDERED: Albumin (Human) 25gm/100ml 100 ML IV SCH (09:35)
[2024-06-06] MEDS ORDERED: Ropivacaine 0.5% HCL/PF 5 MG/ML 30ML Vial ONE ×2 (15:45→15:56)
[2024-06-06] MEDS ORDERED: propofoL 100 ML IV ONE (15:45)
[2024-06-06] MEDS ORDERED: Dexmedetomidine HCL 200 MCG / 2 ML ONE (15:51)
[2024-06-06] MEDS ORDERED: NS 1,000 ML IV SCH (16:05)
[2024-06-06] MEDS ORDERED: Lidocaine HCl 4% 5 ML SDA ONE (16:17)
[2024-06-06] MEDS ORDERED: Tranexamic Acid 100 ML IV SCH (16:35)
[2024-06-06] MEDS ORDERED: FentaNYL Citrate 50 MCG/ML 2 ML Injection ONE ×3 (16:37→19:41)
[2024-06-06] MEDS ORDERED: Phenylephrine HCl 100 MCG/ML-NS 10MLSYR (1MG/10ML) ONE (16:39)
[2024-06-06] MEDS ORDERED: FLU VACC TS2024-25(6MOS UP)/PF 45 MCG/0.5 ML SYRINGE IM SCH (17:00)
[2024-06-06] MEDS ORDERED: Bisacodyl 10 MG Supp PR PRN (17:00)
[2024-06-06] MEDS ORDERED: Magnesium Hydroxide Conc 10 ML UDC PO PRN (17:00)
[2024-06-06] MEDS ORDERED: Rocuronium Bromide 10 MG/ML 5ML Injection IV ONE (17:12)
[2024-06-06] MEDS ORDERED: Sugammadex Sodium 200 MG/2ML SDV (100 MG/ML) ONE (17:12)
[2024-06-06] MEDS ORDERED: EpiNEPhrine 1 MG/1 ML 1ML Vial ONE (17:17)
[2024-06-06] MEDS ORDERED: Dexamethasone Sod Phos 10 MG/ML 1ML VIAL ONE (17:17)
--- NOTE | 2024-06-06 17:34 | NUR ---
1530- REPORT GIVEN TO BLAIR MASSEY RN. ALL QUESTIONS ANSWERED.
[2024-06-06] MEDS ORDERED: Vancomycin HCL 750 MG in NS 250 ML IV ONE (17:40)
--- NOTE | 2024-06-06 17:48 | NUR ---
06/06/24 4037 Tatiana Tobias NOTED: PT HAD OPEN WOUNDS TO HER LEFT LOWER EXTREMITY, SURGEON AWARE
[2024-06-06] MEDS ORDERED: propofoL 20 ML IV ONE ×4 (17:55→19:24)
[2024-06-06] MEDS ORDERED: HYDROmorphone HCl 0.5 MG/0.5 ML SYR ONE (19:47)
[2024-06-06] MEDS ORDERED: Docusate Sodium 100 MG Cap PO SCH (21:00)
--- NOTE | 2024-06-06 21:13 | NUR ---
ARRIVAL PT TRANSFERRED FROM PACU. ARRIVED IN A PATIENT BED, A/OX4. ON 3L VIA NC. VSS. LLE REMAINS C.D.I, SOCK HAS NO EXUDATE NOTED. PT REQUESTING FOOD AND PAIN MEDICATION. PT EDUCATED ABOUT ADA DIET AND CBG CHECKS.
[2024-06-07] VITALS (14 sets, daily range): BP systolic 74–138; BP diastolic 31–72
--- NOTE | 2024-06-07 04:28 | NUR ---
SHIFT SUMMARY POD1 LLE AKA. STUMP SOCK REMAINS C/D/I. LLE REMAINS ELEVATED ON A PILLOW WITH ICE PACKS TO RELIEVE SWELLING. VSS, PT REMAINS ON 3L VIA NC FOR COMFORT. PT HAS SLEPT ON AND OFF T/O THE NIGHT. TOLLERATING PO INTAKE W/O N/V. PT EDUCATED T/O THE NIGHT ABOUT HER ADA DIET AND SHE REPORTED THAT SHE WOULD EAT WHAT SHE WANTED TONIGHT. MEDICATED FOR PAIN WITH 20 MG OXYCODONE Q6 AND 4 MG MORPHINE Q4 PRN. PT HAS REFUSED REPOSITIONING, A BRIEF CHANGE, AND SKIN/ZACHARY CARE MULTIPLE TIMES T/O THE NIGHT, BOTH OFFERRED BY ROUTER SETTER AND RN. OVERALL, NO ACUTE EVENTS NOTED T/O THE NIGHT. PLAN TO CONTINUE ABX THERAPY PER EMAR. THE PATIENT IS CURRENTLY SLEEPING, IN NO DISTRESS, CALL LIGHT IN REACH
[2024-06-07 05:12] LABS: BASOPHILS ABSOLUTE AUTO 0.04 K/mm3 (0.00-0.23); BASOPHILS PERCENT AUTO 1 % (0-2); EOSINOPHILS ABSOLUTE AUTO 0.04 K/mm3 (0.00-0.68); EOSINOPHILS PERCENT AUTO 1 % (0-6); Hematocrit 24.2 % (33.0-51.0); Hemoglobin 7.2 g/dL (11.5-16.0); IMMATURE GRAN ABSOLUTE AUTO 0.04 K/mm3 (0.00-0.10); IMMATURE GRAN PERCENT AUTO 1 % (0-1); LYMPHOCYTES ABSOLUTE AUTO 0.36 K/mm3 (0.84-5.20); LYMPHOCYTES PERCENT AUTO 5 % (21-46); MONOCYTES ABSOLUTE AUTO 0.34 K/mm3 (0.16-1.47); MONOCYTES PERCENT AUTO 5 % (4-13); Mean Corpuscular HGB Conc 29.8 g/dL (31.5-36.5); Mean Corpuscular Volume 98 fL (80-100); NEUTROPHILS ABSOLUTE AUTO 6.02 K/mm3 (1.96-9.15); NEUTROPHILS PERCENT AUTO 88 % (41-73); Platelet Count 219 K/mm3 (150-400); RDW Coefficient Variation 16.1 % (11.7-14.2); RDW Standard Deviation 57.7 fL (35.1-46.3); Red Blood Cell Count 2.48 M/mm3 (3.80-5.20); White Blood Cell Count 6.84 K/mm3 (4.00-11.30)
[2024-06-07 05:51] LABS: Anion Gap 12 mmol/L (3-11); Blood Urea Nitrogen 24 mg/dL (8-24); Bun/Creatinine Ratio 6.7 (12.0-20.0); CO2, Blood 27 mmol/L (21-32); Calcium, Blood 7.8 mg/dL (8.5-10.1); Chloride, Blood 98 mmol/L (98-108); Creatinine, Blood 3.59 mg/dL (0.40-1.00); Glomerular Filtration Rate 14 (60-); Glucose, Blood 598 mg/dL (70-99); Potassium, Blood 4.9 mmol/L (3.5-5.5); Sodium, Blood 132 mmol/L (136-145); Vancomycin, Random 27.1 ug/mL
--- NOTE | 2024-06-07 08:08 | NUR ---
DR. YANCEY NOTIFIED OF CBG >[address]. [address] ORDERS
[2024-06-07] MEDS ORDERED: Insulin Human Lispro 100 Units/ML 3ML Syringe SC STA (08:13)
[2024-06-07 08:48] LABS: Glucose, Blood 619 mg/dL (70-99)
[2024-06-07] MEDS ORDERED: Insulin NPH 100 Unit / ML 10ML Vial SC ONE (09:00)
[2024-06-07 10:22] LABS: Hematocrit 25.1 % (33.0-51.0); Hemoglobin 7.6 g/dL (11.5-16.0); Mean Corpuscular HGB 29.5 pg (26.0-34.0); Mean Corpuscular HGB Conc 30.3 g/dL (31.5-36.5); Mean Corpuscular Volume 97 fL (80-100); Mean Platelet Volume 10.8 fL (9.1-12.4); Platelet Count 225 K/mm3 (150-400); RDW Coefficient Variation 16.1 % (11.7-14.2); RDW Standard Deviation 58.2 fL (35.1-46.3); Red Blood Cell Count 2.58 M/mm3 (3.80-5.20)
[2024-06-07] MEDS ORDERED: NS 1,000 ML IV SCH (10:30)
--- NOTE | 2024-06-07 10:52 | NUR ---
CBG >500 ON RECHECK, DISCUSSED WITH NAYE. PLAN TO TRANSFER TO ICU
[2024-06-07 11:01] LABS: Bun/Creatinine Ratio 6.5 (12.0-20.0); Calcium, Blood 7.7 mg/dL (8.5-10.1); Creatinine, Blood 3.68 mg/dL (0.40-1.00); Potassium, Blood 4.3 mmol/L (3.5-5.5)
[2024-06-07 11:14] LABS: Base Excess Venous -3.1 mmol/L; PCO2 Venous 42.1 mmHg (38-42); pH Blood Venous 7.34 (7.34-7.37)
[2024-06-07] MEDS ORDERED: NS KCl 20mEq 1,000 ML IV SCH (11:25)
[2024-06-07] MEDS ORDERED: Insulin Human Regular 100 UNIT in NS 100 ML IV SCH (11:25)
[2024-06-07] MEDS ORDERED: Insulin Human Lispro 100 Units/ML 3ML Syringe SC SCH (11:30)
--- NOTE | 2024-06-07 11:34 | NUR ---
pt is alert and oriented x4, pleasant and cooperative. anxious. most recent blood glucose 562, plan for pt to transfer to icu for appropriate care
[2024-06-07 11:57] LABS: Glucose, Blood 455 mg/dL (70-99)
[2024-06-07 13:13] LABS: Glucose, Blood 311 mg/dL (70-99)
--- NOTE | 2024-06-07 13:27 | NUR ---
STEPHANIE ARRIVED JUST BEFORE NOON WITH TRISHA AND DAXA. SHE IS ALERT AND COMMUNICATING HER NEEDS. SHE DOES STATE THAT HER LEFT STUMP IS SORE AND PAIN- FUL AT TIMES. SHE IS EATING AND DRINKING WITHOUT COMPLAINT. DENIES HEADACHE, N/V. INSULIN DRIP WAS STARTED AT 0.1U/KG/HR WITH A DROP TO 266 AT THE 1 HOUR JOANNE. PER PROTOCOL DRIP REMAINS UNCHANGED AT THIS TIME.
[2024-06-07 14:23] LABS: Glucose, Blood 181 mg/dL (70-99)
[2024-06-07] MEDS ORDERED: Dextrose 50% 50 ML Vial ONE (15:01)
--- NOTE | 2024-06-07 15:30 | NUR ---
CALL TO RE: BLOOD SUGAR DOWN TO 68, INSULIN GTT OFF, D50 GIVEN. NO NEW ORDERS.
--- NOTE | 2024-06-07 16:51 | NUR ---
UPDATE TO OF CURRENT BLOOD SUGAR, PT ORDERED PANDA EXPRESS AND SON BROUGHT IT IN. ANOTHER BLOOD SUGAR IN 2 HOURS (1829). SHE CONTINUES TO C/O PAIN WHEN IN THE ROOM WITH HER, ICE PACK UNDER THE LEFT STUMP. VISITING WITH SON AND MOM WHILE EATING DINNER.
[2024-06-07] MEDS ORDERED: Insulin Glargine-Yfgn 100 Unit/mL 3 ML SYR SC SCH (21:30)
[2024-06-07 22:11] LABS: Bun/Creatinine Ratio 6.7 (12.0-20.0); Calcium, Blood 8.1 mg/dL (8.5-10.1); Creatinine, Blood 4.15 mg/dL (0.40-1.00); Potassium, Blood 4.5 mmol/L (3.5-5.5)
--- NOTE | 2024-06-07 22:21 | NUR ---
ASSUMPTION OF CARE: ASSUMED CARE OF PT AT 1915. PT ALERT AND ORIENTED, FOLLOWS COMMANDS AND IS COOPERATIVE WITH CARE. PT ON 1L NC WITH SPO2 100%. PT REQUESTING TO KEEP OXYGEN ON FOR COMFORT. DENIES SOB. SALES LEAD IN PLACE, SR WITH HR 80'S. SBP 130'S. DENIES CP/PRESSURE. PIV TO RW INFUSING NS WITH KCL AT 100 ML/HR. POWERGLIDE TO DIANA PATENT AND SALINE LOCKED. PT TOLERATING PO INTAKE WITH NO C/O N/V. LEFT STUMP HAS SOCK IN PLACE, WITH NO VISIBLE SIGNS OF BLEEDING OR OOZING. C/O PAIN IN LEFT STUMP, MEDICATED PER EMAR. HAS SCABS ALL OVER, PICKS AND SCRATCHES AT THEM. PT STATES SHE RARELY MAKES URINE D/T DIALYSIS. NO BM YET. BED LOW AND LOCKED, CALL LIGHT IN REACH.
[2024-06-08] VITALS (28 sets, daily range): BP systolic 84–147; BP diastolic 47–85
[2024-06-08 04:11] LABS: BASOPHILS ABSOLUTE AUTO 0.05 K/mm3 (0.00-0.23); BASOPHILS PERCENT AUTO 1 % (0-2); EOSINOPHILS ABSOLUTE AUTO 0.36 K/mm3 (0.00-0.68); EOSINOPHILS PERCENT AUTO 5 % (0-6); Hematocrit 24.7 % (33.0-51.0); Hemoglobin 7.6 g/dL (11.5-16.0); IMMATURE GRAN ABSOLUTE AUTO 0.05 K/mm3 (0.00-0.10); IMMATURE GRAN PERCENT AUTO 1 % (0-1); LYMPHOCYTES ABSOLUTE AUTO 0.87 K/mm3 (0.84-5.20); LYMPHOCYTES PERCENT AUTO 13 % (21-46); MONOCYTES ABSOLUTE AUTO 0.48 K/mm3 (0.16-1.47); MONOCYTES PERCENT AUTO 7 % (4-13); Mean Corpuscular HGB 29.6 pg (26.0-34.0); Mean Corpuscular HGB Conc 30.8 g/dL (31.5-36.5); Mean Corpuscular Volume 96 fL (80-100); Mean Platelet Volume 10.7 fL (9.1-12.4); NEUTROPHILS ABSOLUTE AUTO 4.84 K/mm3 (1.96-9.15); NEUTROPHILS PERCENT AUTO 73 % (41-73); Platelet Count 214 K/mm3 (150-400); RDW Coefficient Variation 16.2 % (11.7-14.2); RDW Standard Deviation 57.1 fL (35.1-46.3); Red Blood Cell Count 2.57 M/mm3 (3.80-5.20); White Blood Cell Count 6.65 K/mm3 (4.00-11.30)
[2024-06-08 04:37] LABS: Alanine Aminotransfer (ALT/SGP 20 U/L (12-78); Albumin, Blood 3.1 g/dL (3.4-5.0); Albumin/Globulin Ratio 0.9 (0.8-1.8); Alk Phos 201 U/L (50-136); Anion Gap 12 mmol/L (3-11); Aspartate Aminotrans (AST/SGOT 15 U/L (12-37); Bilirubin, Total 0.4 mg/dL (0.1-1.0); Blood Urea Nitrogen 30 mg/dL (8-24); Bun/Creatinine Ratio 7.1 (12.0-20.0); CO2, Blood 25 mmol/L (21-32); Chloride, Blood 97 mmol/L (98-108); Creatinine, Blood 4.24 mg/dL (0.40-1.00); Globulin, Blood 3.4 g/dL (2.2-4.0); Glomerular Filtration Rate 12 (60-); Glucose, Blood 202 mg/dL (70-99); Magnesium, Blood 2.2 mg/dL (1.6-2.4); Phosphorus, Blood 6.3 mg/dL (2.5-4.9); Potassium, Blood 4.5 mmol/L (3.5-5.5); Sodium, Blood 129 mmol/L (136-145); Total Protein, Blood 6.5 g/dL (6.4-8.2); Vancomycin, Random 24.7 ug/mL
--- NOTE | 2024-06-08 05:38 | NUR ---
SHIFT SUMMARY: PT ALERT AND ORIENTED T/O THE NIGHT. ABLE TO REST OFF AND ON. REMAINS ON 1L NC FOR COMFORT. SPO2 MID TO HIGH 90'S. RECORD TABULATING CLERK IN PLACE, SR WITH HR 80'S. EPISODE OF TACHYCARDIA THAT RESOLVED ON IT'S OWN. ASYMPTOMATIC. SBP 104-130'S. DENIES CP/PRESSURE. DENIES SOB. PT C/O PAIN FREQUENTLY T/O THE NIGHT IN LEFT STUMP. MEDICATED PER EMAR. STUMP SOCK IN PLACE, SHOWS NO SIGNS OF OOZING OR BLEEDING. POWERGLIDE TO DIANA NO LONGER PATENT, PULLED THIS SHIFT. PIV TO RW INTACT AND SALINE LOCKED. TOLERATING PO INTAKE WITH NO C/O N/V. NO URINE THIS SHIFT. NO BM THIS SHIFT. BED LOW AND LOCKED, CALL LIGHT IN REACH.
--- NOTE | 2024-06-08 09:47 | NUR ---
STEPHANIE WAS SLEEPING DURING BSR, SHE AWOKE FOR BREAKFAST, ATE ALL OF HER MEAL, WAS ASKING FOR MEDICATION, HAD TO WAIT. WAS CLEANING HER FACE AND PUTTING ON HER MAKEUP AND JEWELRY. TOOK HER AM MEDICATION AND WAS TRANSFERRED DOWN TO DIALYSIS AFTER DOWNGRADE BY AND .
[2024-06-08] MEDS ORDERED: Dextrose 50% 50 ML Syringe IV ONE (10:40)
[2024-06-08] MEDS ORDERED: Insulin Human Lispro 100 Units/ML 3ML Syringe SC SCH ×2 (11:30)
[2024-06-08] MEDS ORDERED: Vancomycin HCL 750 MG in NS 250 ML IV ONE (18:00)
--- NOTE | 2024-06-08 23:16 | NUR ---
ASSUMPTION OF CARE PT LYING IN BED IN NO APPARENT DISTRESS, ALERT AND ORIENTED TO ALL. 2 DAYS S/P BK TO AKA ON LEFT LEG. SUTURES INTACT, INCISION C/D/I. PT IN PAIN, ASKS FOR PAIN MEDICATION. SAYS SHE WANTS HER PRN PAIN MEDICATIONS WHENEVER THEY ARE DUE. HR SINUS RHYTHM 84. BP 125/49. 100% SAT ON 2LNC- PT SEEMS TO WANT OXYGEN MORE THAN SHE NEEDS IT. NO CHEST PAIN/PRESSURE, SOB, AB PAIN, N/V. AFEBRILE. PT HAS CALL LIGHT. PLAN OF CARE TO BE CONTINUED.
[2024-06-09] VITALS (24 sets, daily range): BP systolic 107–166; BP diastolic 27–81
[2024-06-09] MEDS ORDERED: DiphenhydrAMINE HCL 25 MG Cap PO PRN (00:45)
[2024-06-09 03:27] LABS: BASOPHILS ABSOLUTE AUTO 0.04 K/mm3 (0.00-0.23); BASOPHILS PERCENT AUTO 1 % (0-2); EOSINOPHILS ABSOLUTE AUTO 0.32 K/mm3 (0.00-0.68); EOSINOPHILS PERCENT AUTO 6 % (0-6); Hematocrit 21.5 % (33.0-51.0); Hemoglobin 6.5 g/dL (11.5-16.0); IMMATURE GRAN ABSOLUTE AUTO 0.04 K/mm3 (0.00-0.10); IMMATURE GRAN PERCENT AUTO 1 % (0-1); LYMPHOCYTES ABSOLUTE AUTO 0.67 K/mm3 (0.84-5.20); LYMPHOCYTES PERCENT AUTO 13 % (21-46); MONOCYTES ABSOLUTE AUTO 0.39 K/mm3 (0.16-1.47); MONOCYTES PERCENT AUTO 7 % (4-13); Mean Corpuscular HGB Conc 30.2 g/dL (31.5-36.5); Mean Corpuscular Volume 96 fL (80-100); Mean Platelet Volume 10.6 fL (9.1-12.4); NEUTROPHILS ABSOLUTE AUTO 3.83 K/mm3 (1.96-9.15); NEUTROPHILS PERCENT AUTO 72 % (41-73); Platelet Count 179 K/mm3 (150-400); RDW Coefficient Variation 16.7 % (11.7-14.2); RDW Standard Deviation 58.4 fL (35.1-46.3); Red Blood Cell Count 2.24 M/mm3 (3.80-5.20); White Blood Cell Count 5.29 K/mm3 (4.00-11.30)
[2024-06-09 04:54] LABS: Alanine Aminotransfer (ALT/SGP 21 U/L (12-78); Albumin, Blood 2.6 g/dL (3.4-5.0); Albumin/Globulin Ratio 0.8 (0.8-1.8); Alk Phos 197 U/L (50-136); Anion Gap 11 mmol/L (3-11); Aspartate Aminotrans (AST/SGOT 16 U/L (12-37); Bilirubin, Total 0.3 mg/dL (0.1-1.0); Blood Urea Nitrogen 25 mg/dL (8-24); Bun/Creatinine Ratio 6.5 (12.0-20.0); CO2, Blood 30 mmol/L (21-32); Calcium, Blood 7.9 mg/dL (8.5-10.1); Chloride, Blood 101 mmol/L (98-108); Creatinine, Blood 3.83 mg/dL (0.40-1.00); Globulin, Blood 3.2 g/dL (2.2-4.0); Glomerular Filtration Rate 13 (60-); Glucose, Blood 230 mg/dL (70-99); Magnesium, Blood 2.1 mg/dL (1.6-2.4); Phosphorus, Blood 5.4 mg/dL (2.5-4.9); Potassium, Blood 4.7 mmol/L (3.5-5.5); Sodium, Blood 137 mmol/L (136-145); Total Protein, Blood 5.8 g/dL (6.4-8.2); Vancomycin, Random 28.2 ug/mL
--- NOTE | 2024-06-09 07:23 | NUR ---
SHIFT SUMMARY PT LYING IN BED SLEEPING. AWAKES TO VOICE AND IS ORIENTED TO ALL. MOVES ALL EXTREMITIES, LEFT LEG/STUMP IS PAINFUL TO MOVE. INCISION IS C/D/I; SUTURES INTACT. PT REQUIRED ALL PAIN MEDS AVAILABLE ON JUN AND ASKED FOR THEM ALMOST EXACTLY WHEN DUE. HR IN 80'S WITH STABLE BP. O2 SATURATION 99-100% ON 2L NC. NO CHEST PAIN/PRESSURE, SOB, AB PAIN, N/V. ANURIC. NO BOWEL MOVEMENT. PT RESISTED REPOSITIONING ON A COUPLE OF OCCASIONS. PT PICKS AT SKIN OFTEN. SHE SAYS IT IS DUE TO ITCHING CAUSED BY "TOXINS" FROM RENAL FAILURE/DIALYSIS. NO SIGNS OF PRESSURE INJURIES, BUT MANY SCRATCHING INJURIES ON LOWER BUTTOCKS/UPPER THIGH. RENAL IMPROVED SLIGHTLY BUT HEMOGLOBIN WAS 6.5. DR HESS ORDERED 2 UNITS PRBC TO BE GIVEN WITH DIALYSIS TODAY. REPORT GIVEN TO ONCOMING NURSE. PT HAS CALL LIGHT NEARBY.
--- NOTE | 2024-06-09 10:42 | NUR ---
CALL TO PATIENT'S NURSE, NIKOLE; PATIENT IS AT DIALYSIS AND NIKOLE WILL CALL WITH REPORT LATER WHEN SHE'S CLOSER TO COMING TO THE FLOOR.
--- NOTE | 2024-06-09 11:27 | NUR ---
ASSUMED CARE OF PATIENT. MENTAL HEALTH CASE MANAGER BROUGHT BELONGINGS UP FROM SECOND FLOOR. VERY FATIGUED AFTER DIALYSIS AND RESTING UPON ARRIVING TO FLOOR. WILL NEED TO SWITCH FROM ICU BED TO [facility] BED.
--- NOTE | 2024-06-09 11:28 | NUR ---
STEPHANIE WAS TAKEN VIA BED TO DIALYSIS WITH KELBY, SHE HAD HER MORNING MEDS WITH DIET PEPSI AND COFFEE, TOOK HER PAIN MEDICATIONS. 2 UNITS PACKED RBC'S ORDERED FOR DIALYSIS, RAMY Burt RN ON MEDICAL FLOOR TAKING PATIENT UPON TRANSFER TO ROOM 345. CPT RPANAV TOOK PATIENT BELONGINGS TO ROOM. DIALYSIS MAGDA CRUZ MADE AWARE THAT PATIENT IS TRANSFERRING TO ROOM 345.
--- NOTE | 2024-06-09 18:30 | NUR ---
END OF SHIFT SUMMARY: A&Ox4. PLEASANT AND COOPERATIVE WITH CARE. CALLS APPROPRIATELY AND IS ABLE TO ADVOCATE NEEDS EFFECTIVELY. 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 DIALYSIS TODAY c 3500mL OUTPUT AND RECEIVED 2u PRBC D/T HGB 6.5 TODAY.. ROLL CHANGE FOR BM. MEDS WHOLE c FLUIDS. ABLE TO CONSUME MEALS WITHOUT DIFFICULTY. MEDICATED PRN PAIN ON ROUTINE BASIS PER PATIENT REQUEST. BEDBOUND SECONDARY TO BLE AMBUTATIONS. TRANSFERRED TO MEDICAL FLOOR FOLLOWING HD TODAY. BED IN LOWEST POSITION, CALL LIGHT WITHIN REACH, ALL NEEDS MET. REPORT TO ONCOMING NURSE.
[2024-06-09] MEDS ORDERED: Insulin Glargine-Yfgn 100 Unit/mL 3 ML SYR SC SCH (21:00)
[2024-06-10] VITALS (16 sets, daily range): BP systolic 94–165; BP diastolic 51–132
--- NOTE | 2024-06-10 05:14 | NUR ---
SHIFT SUMM: PT IS A 53 YO FULL CODE WHO WAS ADMITTED FOR CELLULITIS AND CONTACT PREC FOR MRSA IN THE WOUNDS. PT REPORTS OF CHRONIC PAIN AND TAKES MULTIPLE PAIN MEDICATIONS THEY BECOME AVAILABLE AND CALLS FOR THEM. 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 PT HAD DIALYSIS TODAY PER DAY SHIFT TODAY AND HAD SON AT BEDSIDE WHEN I CAME ON TO SHIFT. PT WAS GIVEN ONE UNIT OF REGULAR INSULIN LAST NIGHT AND 15 OF LONG ACTING INSULIN. PT HAS NOT BEEN ABLE TO URINATE THIS SHIFT. PT HAS CALL LIGHT IN REACH. REPOSITIONS AND BOOSTS WITH LIFT MACHINE IN ROOM. MAKES NEEDS KNOW TO STAFF.
[2024-06-10 07:50] LABS: Hematocrit 28.2 % (33.0-51.0); Hemoglobin 8.7 g/dL (11.5-16.0)
[2024-06-10 08:22] LABS: Magnesium, Blood 2.1 mg/dL (1.6-2.4)
[2024-06-10 08:23] LABS: Albumin, Blood 2.8 g/dL (3.4-5.0); Anion Gap 14 mmol/L (3-11); Blood Urea Nitrogen 31 mg/dL (8-24); Bun/Creatinine Ratio 7.7 (12.0-20.0); CO2, Blood 26 mmol/L (21-32); Calcium, Blood 8.4 mg/dL (8.5-10.1); Chloride, Blood 93 mmol/L (98-108); Creatinine, Blood 4.02 mg/dL (0.40-1.00); Glomerular Filtration Rate 13 (60-); Glucose, Blood 583 mg/dL (70-99); Phosphorus, Blood 5.1 mg/dL (2.5-4.9); Potassium, Blood 5.1 mmol/L (3.5-5.5); Sodium, Blood 128 mmol/L (136-145); Vancomycin, Random 21.9 ug/mL
[2024-06-10] MEDS ORDERED: Insulin Human Lispro 100 Units/ML 3ML Syringe SC ONE (09:00)
[2024-06-10] MEDS ORDERED: Insulin Human Lispro 100 Units/ML 3ML Syringe SC SCH (11:30)
--- NOTE | 2024-06-10 13:28 | NUR ---
NOTE PT IV PULLED. WILL ASK CHARGE TO TRY TO PUT IN NEW ONE
[2024-06-10] MEDS ORDERED: Vancomycin HCL 750 MG in NS 250 ML IV SCH (14:00)
[2024-06-10] MEDS ORDERED: Fluconazole 100 MG Tab PO SCH (18:00)
--- NOTE | 2024-06-10 19:17 | NUR ---
SHIFT SUMMARY PT A&OX4. PT ADMITTED DUE TO CELLULITIS. 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 DID WOUND CARE ON L STUMP, CLEANSED WOUND WITH H202 ON 4X4 GAUZE, PAT DRY. APPLIED NEW ABD PAD AND STUMP SOCK DRESSING, WOUND C/D/I. APPLIED YEAST POWDER TO ABD FOLDS. PT REPORTS PAIN. PAIN MANAGED PER EMAR. PT ACHS BLOOD SUGARS. PT BLOODSUGAR THIS AM WAS 583. NOTIFIED CHARGE NURSE AND MD. DR. YANCEY ORDERED ONE TIME 25 UNITS OF FAST ACTING INSULIN. PT EDUCATED ON GLUCOSE CONTROL. PT "HAD SON ORDERED PANDA EXPRESS FOR DINNER." PT EDUCATED ON DIEBETIC DIET. PT REFUSED MEAL TRAY. PT IN BED, HOB ELEVATED. BED IN LOWEST POSITION. PT TURNED Q2 HOURS. CALL LIGHT IN REACH. PT VSS. PT GOT MIDODRINE ONCE DURING SHIFT.
[2024-06-10] MEDS ORDERED: Insulin Glargine-Yfgn 100 Unit/mL 3 ML SYR SC SCH (21:00)
[2024-06-11] VITALS (34 sets, daily range): BP systolic 79–125; BP diastolic 46–99
--- NOTE | 2024-06-11 03:21 | NUR ---
PT CALLED ME AT 0220 STATING SHES VERY THIRSTY AND DOESNT FEEL RIGHT AND WANTED A BLOOD SUGAR CHECK. I CHECKED HER BS AND IT IS OVER 500. I CALLED THE LAB AND THEY CAME AT 0305. CAROLINA DOLAN DRAWED FROM THE PT'S PG FOR ME AND LABS WERE SENT. I CALLED HOSPITALIST WHO TOLD ME TO GO BY THE PT'S SLIDING SCALE FOR REGULAR INSULIN. BECAUSE BS IS AT LEAST 500 SHE RECIEVED HS DOSE OF 6 UNITS OF REGULAR INSULIN. I WILL CALL HOSPITALIST BACK FOR FURTHER INSTRUCTIONS ONCE I KNOW THE LAB VALUE OF BLOOD SUGAR. PT STATES NOT FEELING WELL AND HAS AN ELEVATED HR IN THE 110'S AND WARM TO TOUCH BUT REST OF VITALS WNL. HOSPITALIST IS AWARE OF THIS.
[2024-06-11 03:42] LABS: Glucose, Blood 666 mg/dL (70-99)
[2024-06-11] MEDS ORDERED: Insulin Glargine-Yfgn 100 Unit/mL 3 ML SYR SC ONE (04:00)
[2024-06-11] MEDS ORDERED: LORazepam 2 MG/ML 1ML Injection IV ONE (04:05)
[2024-06-11 04:22] LABS: Hematocrit 29.3 % (33.0-51.0); Hemoglobin 8.7 g/dL (11.5-16.0)
[2024-06-11 04:45] LABS: Bicarbonate Venous 16.1 mmol/L (24.0-30.0); PCO2 Venous 45.7 mmHg (38-42); pH Blood Venous 7.19 (7.34-7.37)
[2024-06-11] MEDS ORDERED: NS 250 ML IV ONE (04:45)
[2024-06-11 04:49] LABS: Albumin, Blood 2.8 g/dL (3.4-5.0); Albumin/Globulin Ratio 0.8 (0.8-1.8); Bilirubin, Total 0.7 mg/dL (0.1-1.0); Bun/Creatinine Ratio 8.1 (12.0-20.0); Calcium, Blood 8.5 mg/dL (8.5-10.1); Creatinine, Blood 3.94 mg/dL (0.40-1.00); Globulin, Blood 3.6 g/dL (2.2-4.0); Total Protein, Blood 6.4 g/dL (6.4-8.2)
[2024-06-11] MEDS ORDERED: NS 1,000 ML IV SCH (05:45)
--- NOTE | 2024-06-11 05:55 | NUR ---
PT WAS TRANSFFERED TO ICU 6. PT WAS HAVING TO HIGH OF BLOOD SUGARS AND DR DECIDED TO TRANSFER PT. PT WAS GIVEN 6 OF REGULAR INSULN AND 15 OF LANTUS. PT WAS ALSO GIVEN A 250 ML BOLUS FOR TACHYCARDIA AND LOW BP. PT WAS MEDICATED FOR PAIN PER EMAR. I CALLED THE SON AND LEFT A MESSAGE OF WHERE HIS MOTHER WAS TRANSFERRED TO.
[2024-06-11] MEDS ORDERED: Insulin Human Regular 100 UNIT in NS 100 ML IV SCH (06:00)
--- NOTE | 2024-06-11 06:53 | NUR ---
SHIFT SUMMARY PATIENT TRANSFERRED TO ICU @0540. PATIENT IS A BILATERAL AKA. HAS A POWERGLIDE IN MERON. PATEINT IN BARIATRIC BED. PATIENT HAS MULTIPLE WOUNDS PICS IN CHART. PATIENT USES BEDPAN. TO MOVE IN BED USES LIFT. HR IN THE 130'S AND 110-120'S. INSULIN DRIP RUNNING @5U/HR. BLOOD SUGARS q1 HOUR.CALL LIGHT WITHIN REACH.
[2024-06-11 07:10] LABS: Magnesium, Blood 2.2 mg/dL (1.6-2.4)
[2024-06-11 07:20] LABS: Phosphorus, Blood 5.9 mg/dL (2.5-4.9); Vancomycin, Random 24.6 ug/mL
[2024-06-11 07:23] LABS: Bun/Creatinine Ratio 8.3 (12.0-20.0); Calcium, Blood 8.4 mg/dL (8.5-10.1); Creatinine, Blood 4.12 mg/dL (0.40-1.00); Potassium, Blood 5.3 mmol/L (3.5-5.5)
[2024-06-11 08:45] LABS: Glucose, Blood 637 mg/dL (70-99)
--- NOTE | 2024-06-11 09:40 | NUR ---
Gillespie of care: She is extremely drowsy but arouses to light touch & is oriented & appropriate when awake. Follows all commands. In ST in the low 100s, stable blood pressures, O2 sat in the high 90s on 3L NC. Powerglide to bilateral arms. NS @ 100cc/hr & insulin gtt currently at 13.1 units/hr. Most recent cbg in the mid 400s. Will continue to monitor.
[2024-06-11 10:44] LABS: Base Excess Venous -2.2 mmol/L; Bicarbonate Venous 22.4 mmol/L (24.0-30.0); PCO2 Venous 50.5 mmHg (38-42); pH Blood Venous 7.29 (7.34-7.37)
[2024-06-11 11:09] LABS: Bun/Creatinine Ratio 8.6 (12.0-20.0); Calcium, Blood 8.4 mg/dL (8.5-10.1); Creatinine, Blood 3.6 mg/dL (0.40-1.00); Potassium, Blood 3.5 mmol/L (3.5-5.5)
[2024-06-11] MEDS ORDERED: D5W-1/2NS KCl 40mEq 1,000 ML IV SCH (11:30)
[2024-06-11] MEDS ORDERED: Potassium Chloride 40 MEQ in NS 250 ML IV ONE (12:15)
[2024-06-11 14:16] LABS: Base Excess Venous 7.4 mmol/L; Bicarbonate Venous 29.6 mmol/L (24.0-30.0); PCO2 Venous 59.3 mmHg (38-42); pH Blood Venous 7.35 (7.34-7.37)
[2024-06-11 14:46] LABS: Bun/Creatinine Ratio 7.6 (12.0-20.0); Calcium, Blood 8.7 mg/dL (8.5-10.1); Creatinine, Blood 3.28 mg/dL (0.40-1.00); Potassium, Blood 4.1 mmol/L (3.5-5.5)
[2024-06-11] MEDS ORDERED: Insulin NPH 100 Unit / ML 10ML Vial SC SCH (16:00)
[2024-06-11] MEDS ORDERED: Insulin Human Lispro 100 Units/ML 3ML Syringe SC SCH (16:30)
--- NOTE | 2024-06-11 17:50 | NUR ---
Shift summary: Very drowsy all day, sometimes only arousing to sternal rub. Immediately asks for pain medication up wakening. Oriented & appropriate when awake. Dr. Garcia aware. In low ST all day in the 100s, blood pressures stable. Got HD. Weaned from 3L to 1L with oxygen saturation 91-92%. Transitioned off insulin gtt & associated IVF this afternoon. Most recent cbg 149. Taking PO. No voids/no BM. Powerglide in bilat arms. She has many scabs scattered over her body, excoriation to folds, redness to buttocks bilat. Wound care performed per orders to LLE AKA site. Encouraged to reposition & perform ROM but she refused to get OOB today with the lift. Will continue to monitor.
--- NOTE | 2024-06-11 21:56 | NUR ---
UPDATE NURSE TALK TO VLADIMIR MEJIA ABOUT BLOOD SUGARS AND INSULIN ORDERS. HE WANTED TO [place]ANGHE CBG Q4 HOURS AND DUE TO BLOOD SUGAR 243 GIVE INSULIN-N 20U SC @ 2100 AND HIGH SLIDING SCALE. @2100 BLOOD SUGAR WAS 277. GAVE BOTH INSULIN PER EMAR AND VLADIMIR MEJIA. WILL CHECK BLOOD SUGAR Q4 HOURS. CALL LIGHT WITHIN REACH OF PATIENT.
--- NOTE | 2024-06-11 22:57 | NUR ---
UPDATE PATIENT HAS HAD NO URINE OUTPUT ON SHIFT SO FAR. DID HAVE DIALYSIS TODAY SCANNED BLADDER ONLY 8MLS SHOWS. MD BLAKE AWARE.
[2024-06-12] VITALS (24 sets, daily range): BP systolic 91–158; BP diastolic 32–109
--- NOTE | 2024-06-12 03:22 | NUR ---
UPDATE BLADDER SCAN TOTAL 35ML AND MD AWARE.
[2024-06-12 03:45] LABS: Hematocrit 27.9 % (33.0-51.0); Hemoglobin 8.6 g/dL (11.5-16.0); Mean Corpuscular HGB 29.2 pg (26.0-34.0); Mean Corpuscular HGB Conc 30.8 g/dL (31.5-36.5); Mean Corpuscular Volume 95 fL (80-100); Platelet Count 205 K/mm3 (150-400); RDW Coefficient Variation 15.4 % (11.7-14.2); RDW Standard Deviation 53.4 fL (35.1-46.3); Red Blood Cell Count 2.95 M/mm3 (3.80-5.20); White Blood Cell Count 6.13 K/mm3 (4.00-11.30)
[2024-06-12 04:03] LABS: Albumin, Blood 2.6 g/dL (3.4-5.0); Anion Gap 12 mmol/L (3-11); Blood Urea Nitrogen 30 mg/dL (8-24); Bun/Creatinine Ratio 7.4 (12.0-20.0); CO2, Blood 30 mmol/L (21-32); Calcium, Blood 8.8 mg/dL (8.5-10.1); Chloride, Blood 96 mmol/L (98-108); Creatinine, Blood 4.03 mg/dL (0.40-1.00); Glomerular Filtration Rate 12 (60-); Glucose, Blood 162 mg/dL (70-99); Magnesium, Blood 2.1 mg/dL (1.6-2.4); Potassium, Blood 4.1 mmol/L (3.5-5.5); Sodium, Blood 134 mmol/L (136-145); Vancomycin, Random 25.7 ug/mL
--- NOTE | 2024-06-12 06:01 | NUR ---
SHIFT SUMMARY PATIENT HAS SLEPT OFF AND ON THROUGH SHIFT. PATIENT IS A&O X4. PATIENT HAS POWERGLIDES IN DIANA AND MERON SALAINE LOCKED. HAS A PERMACATH IN RIGHT CHEST. SBP 100-120'S AND HR IN THE 90'S. ON 1L OF O2 VIA NC. NO URINE OUT ON SHIFT BLADDER SCANNED X2 8MLS AND 35MLS. PATIENT HAD DIALYSIS 06/[address] BLAKE AWARE NO FURTHER ORDERS. PATEINT ABLE TO USE CALL LIGHT WHEN NEEDED AND NEEDS LIFT TO BE MOVED UP IN BED DUE TO BILATERAL AKA. PATIENT CAN HELP ROLLING SIDE TO SIDE. CALL LIGHT WITHIN REACH
--- NOTE | 2024-06-12 08:15 | NUR ---
Ford of care: Alert, oriented, cooperative. Wants her home pain medication restarted. Discussed with Dr. Kent. She is in NSR in the 90s with stable blood pressures. Oxygen saturation of 97% on 1L NC. Good appetite. Blood sugar 234 with no intermediate or long acting insulin ordered - also discussed with Dr. Kent. SSI administered per order. Powerglide in bilat arms. L AKA site clean, dry, intact with sutures in place. Will continue to monitor.
[2024-06-12] MEDS ORDERED: Insulin Glargine-Yfgn 100 Unit/mL 3 ML SYR SC SCH ×3 (11:00→21:00)
[2024-06-12] MEDS ORDERED: OxyCODONE 10/Acetamin 325 TABLET PO PRN (15:15)
[2024-06-12] MEDS ORDERED: DiphenhydrAMINE HCL 25 MG Cap PO PRN (15:20)
--- NOTE | 2024-06-12 17:50 | NUR ---
Shift summary: Alert & oriented all day. Declined getting out of bed with lift because she states she does not get out of bed when at home. In NSR in the 90s with stable blood pressures, on 3L NC with O2 sats in the mid 90s. Good PO intake, no void or BM, declined any prn bowel meds. See flowsheet for skin assessment. L AKA site clean/dry/intact. Blood sugars better controlled. Discussed with Dr. Kent. Powerglide to bilat arms. Patient & son updated on plan of care. Will continue to monitor.
--- NOTE | 2024-06-12 23:30 | NUR ---
UPDATE NO URINE OUTPUT. PATIENT DOES RECIEVE DIALYSIS MON-SAT. DID NOT RECIEVE TODAY ON 06/12. PATIENT STATES ITS NORMAL FOR LITTLE TO NO OUTPUT OF URINE. MD AWARE. PATIENT DRY FLOW UNDER BUTTOCKS CHECKED AND DRY. CREAM APPLIED TO COCCYX AREA. CALL LIGHT WITHIN REACH.
[2024-06-13] VITALS (20 sets, daily range): BP systolic 100–135; BP diastolic 45–111
[2024-06-13 04:28] LABS: Albumin, Blood 2.4 g/dL (3.4-5.0); Anion Gap 12 mmol/L (3-11); Blood Urea Nitrogen 37 mg/dL (8-24); Bun/Creatinine Ratio 7.1 (12.0-20.0); CO2, Blood 29 mmol/L (21-32); Calcium, Blood 8.5 mg/dL (8.5-10.1); Chloride, Blood 96 mmol/L (98-108); Creatinine, Blood 5.24 mg/dL (0.40-1.00); Glomerular Filtration Rate 9 (60-); Glucose, Blood 218 mg/dL (70-99); Phosphorus, Blood 5.8 mg/dL (2.5-4.9); Potassium, Blood 4.5 mmol/L (3.5-5.5); Sodium, Blood 132 mmol/L (136-145); Vancomycin, Random 21.2 ug/mL
[2024-06-13 05:02] LABS: BASOPHILS ABSOLUTE AUTO 0.04 K/mm3 (0.00-0.23); BASOPHILS PERCENT AUTO 1 % (0-2); EOSINOPHILS PERCENT AUTO 6 % (0-6); Hematocrit 26.4 % (33.0-51.0); Hemoglobin 7.9 g/dL (11.5-16.0); IMMATURE GRAN ABSOLUTE AUTO 0.03 K/mm3 (0.00-0.10); IMMATURE GRAN PERCENT AUTO 1 % (0-1); LYMPHOCYTES PERCENT AUTO 10 % (21-46); MONOCYTES ABSOLUTE AUTO 0.47 K/mm3 (0.16-1.47); MONOCYTES PERCENT AUTO 10 % (4-13); Mean Corpuscular HGB 29.2 pg (26.0-34.0); Mean Corpuscular HGB Conc 29.9 g/dL (31.5-36.5); Mean Corpuscular Volume 97 fL (80-100); Mean Platelet Volume 11.3 fL (9.1-12.4); NEUTROPHILS ABSOLUTE AUTO 3.58 K/mm3 (1.96-9.15); NEUTROPHILS PERCENT AUTO 73 % (41-73); Platelet Count 182 K/mm3 (150-400); RDW Coefficient Variation 15.3 % (11.7-14.2); RDW Standard Deviation 54.7 fL (35.1-46.3); Red Blood Cell Count 2.71 M/mm3 (3.80-5.20); White Blood Cell Count 4.92 K/mm3 (4.00-11.30)
--- NOTE | 2024-06-13 06:02 | NUR ---
SHIFT SUMMARY PATIENT WAS AWAKE FOR MOST OF SHIFT, HAS BEEN SLEEPING FROM 0400 TILL 0600. PATIENT A&O X4 USES CALL LIGHT TO MAKE NEEDS KNOW. PATIENT CAN ROLL FROM SIDE TO SIDE TO HELP STAFF BUT LIKES TO BE IN A FOWLERS POSITION. PATIENT DOES LIKE A PILLOW UNDER LEFT LOWER AKA. NO URINE OUTPUT ON SHIFT MD AWARE, BARRIER CREAM APPLIED TO COCCYX AREA. SBP 110-120'S AND HR IN THE 80'S. PATIENT PULLED LEFT UPPER ARM POWERGLIDE OUT WASHED AND COVERED WITH BANDAID SITE HAD NO BLEEDING. PATIENT HAD RIGHT UPPER ARM POWERGLIDE WHICH DRESSING WAS CHANGED DUE TO PATIENT SCRATCHING THE SITE AND REMOVING THE DRESSING. NURSE WASHED AND APPLIED NEW DRESSING TO SITE AMD FLUSHED. ON 1L OF OXYGEN VIA NASAL CANNULA O2 SATS @98%. CALL LIGHT WITHIN REACH.
--- NOTE | 2024-06-13 10:51 | NUR ---
THIS RN ASSUMED CARE OF PT AT 0700. PT IS ALERT AND ORIENTED X4, CALLS APPROPRIATELY. PT IS ON 1L NC, SATTING >95%, PT DENIES SHORTNESS OF BREATH SOUNDS CLEAR/DIMINISHED. PT HEART RATE IN THE 80s, BLOOD PRESSURE STABLE AT 115/50, PT DENIES ANY CHEST PAIN PAIN UPON ASSESSMENT. PT DOES HAVE BI-LATERAL AKA, PT BEING TURNED Q2HRS. PT SUPPOSED TO BE GETTING DIALYSIS TODAY. NO OTHER INTERVENTIONS AT THIS TIME. PLAN OF CARE CONTINUED.
[2024-06-13] MEDS ORDERED: OxyCODONE 10/Acetamin 325 TABLET PO PRN (11:40)
[2024-06-13] MEDS ORDERED: Vancomycin HCL 750 MG in NS 250 ML IV ONE (16:00)
--- NOTE | 2024-06-13 17:47 | NUR ---
PT SUMMARY PT HAD HD TODAY, HAD 2.5L TAKEN OFF PER DYALYSIS NURSE. NO OTHER ACUTE EVENTS TO REPORT THROUGHOUT THE DAY, NO OTHER INTERVENTIONS AT THIS TIME. PLAN OF CARE CONTINUED.
[2024-06-14] VITALS (16 sets, daily range): BP systolic 95–133; BP diastolic 48–95
[2024-06-14 03:59] LABS: Hematocrit 25.7 % (33.0-51.0)
[2024-06-14 04:18] LABS: Albumin, Blood 2.5 g/dL (3.4-5.0); Anion Gap 9 mmol/L (3-11); Blood Urea Nitrogen 32 mg/dL (8-24); Bun/Creatinine Ratio 6.2 (12.0-20.0); CO2, Blood 31 mmol/L (21-32); Calcium, Blood 8.4 mg/dL (8.5-10.1); Chloride, Blood 97 mmol/L (98-108); Creatinine, Blood 5.17 mg/dL (0.40-1.00); Glomerular Filtration Rate 9 (60-); Glucose, Blood 206 mg/dL (70-99); Magnesium, Blood 2.3 mg/dL (1.6-2.4); Phosphorus, Blood 5.3 mg/dL (2.5-4.9); Potassium, Blood 5.1 mmol/L (3.5-5.5); Sodium, Blood 132 mmol/L (136-145)
--- NOTE | 2024-06-14 06:11 | NUR ---
SHIFT SUMMARY PATIENT SLEPT FROM 0030 TILL 0600. PATEINT WAS PLEASANT AND HAPPY. A&OX4 SO WAS AT BEDSIDE UNTIL 2200. PATIENT HAD SNACKS AND DRINKS BLOOD SUGAR WAS 206 @0330. SBP 115-120'S AND HR IN THE 80'S. PATIENT WILL HELP IN CARE BUT LIKES TO BE IN FOWLERS POSITION. USES CALL WHEN NEEDS ARRIVE. HAS POWERGLIDE IN MERON SALINE LOCKED. CALL LIGHT WITHIN REACH.
--- NOTE | 2024-06-14 09:45 | NUR ---
AM NOTES; PT CURRENTLY IN DIALYSIS DOING A DIALYSIS SESSION. NO ISSUES ENCOUNTERED THIS MORNING, PT REQUESTED PAIN MEDICINE WITH BREAKFAST, TOOK MORNING MEDS WITH NO ISSUES. CBG AT 279 THIS MORNING SHORT ACTING AND LONG ACTING MEDS GIVEN. L AKA WITH SUTURES INTACT. VITALS HRR SR 70'S-80'S, SBP 110'S, SATS ABOVE 90% ON RA, AFEBRILE. PT HAS BEEN PLEASANT AND COOPERATIVE. REQUESTED A BED BATH AFTER DIALYSIS AND SIT IN THE TOILET TO TRY TO HAVE A BM. WILL CONTINUE TO MONITOR
[2024-06-14] MEDS ORDERED: MICONAZOLE NITR85 GM TOP (13:31)
--- NOTE | 2024-06-14 15:19 | NUR ---
PT DISCHARGED TO HOME WITH DISCHARGE AND HOME HEALTH ORDERS. PRESCRIPTION SENT TO [facility]. VITALS HAS BEEN STABLE. PT HAD DIALYSIS THIS MORNING. CBG HAS BEEN IN THE 130-200'S INSULIN COVERAGE WAS GIVEN. INCISION SITE ON LEFT AKA CLEANED AND ISLAND DRESSING PLACED. PT ON 2-3 L OF 02 VIA NASAL CANNULA UPON DISCHARGE. TRANSPORT ARRIVED AT 1400 PT DISCHARGE VIA HER WON PERSONAL WHEELCHAIR. ALL BELONGINGS SENT WITH THE PT, ALL NEW MEDICATIONS AND DISCHARGE INSTRUCTIONS SENT WITH THE PT. HARD SCRIPT FOR PAIN MEDS PROVIDED WELL.
== END 2024-06-14 14:12 | disposition home or self-care (01) | DRG 474 ==
LOC: ER 21:24 → MEDS 06-04 01:58 → ERHOLD 06-04 01:58 → SURS 06-04 01:58 → ICUE 06-04 01:58 → MEDS 06-04 17:15 → SURS 06-06 20:07 → ICUE 06-07 11:24 → MEDS 06-09 11:42 → ICUE 06-11 05:32
PROVIDERS: Emergency Medicine; Family Medicine; Internal Medicine; Internal Medicine Nephrology; Orthopaedic Surgery; ADMIT Student in an Organized Health Care Education/Training Program
PROC: 5A1D70Z Performance of Urinary Filtration, Intermittent, Less than 6 Hours Per Day (ICD-10-PCS; 2024-06-05)
PROC: 30233N1 Transfusion of Nonautologous Red Blood Cells into Peripheral Vein, Percutaneous Approach (ICD-10-PCS; 2024-06-05)
PROC: 3E03329 Introduction of Other Anti-infective into Peripheral Vein, Percutaneous Approach (ICD-10-PCS; 2024-06-05)
PROC: 30233J1 Transfusion of Nonautologous Serum Albumin into Peripheral Vein, Percutaneous Approach (ICD-10-PCS; 2024-06-05)
PROC: 0Y6D0Z1 Detachment at Left Upper Leg, High, Open Approach (ICD-10-PCS; principal; 2024-06-06 14:45)
DX: T87.44 Infection of amputation stump, left lower extremity (principal); A41.9 Sepsis, unspecified organism; E10.10 Type 1 diabetes mellitus with ketoacidosis without coma; N18.6 End stage renal disease; R65.20 Severe sepsis without septic shock; J96.21 Acute and chronic respiratory failure with hypoxia; N25.81 Secondary hyperparathyroidism of renal origin; E87.1 Hypo-osmolality and hyponatremia; L97.829 Non-pressure chronic ulcer of other part of left lower leg with unspecified severity; I13.2 Hypertensive heart and chronic kidney disease with heart failure and with stage 5 chronic kidney disease, or end stage renal disease; I50.32 Chronic diastolic (congestive) heart failure; M86.8X6 Other osteomyelitis, lower leg; D62 Acute posthemorrhagic anemia; Y83.8 Other surgical procedures as the cause of abnormal reaction of the patient, or of later complication, without mention of misadventure at the time of the procedure; D63.1 Anemia in chronic kidney disease; K21.9 Gastro-esophageal reflux disease without esophagitis; E03.9 Hypothyroidism, unspecified; G89.4 Chronic pain syndrome; I35.0 Nonrheumatic aortic (valve) stenosis; E66.01 Morbid (severe) obesity due to excess calories; F17.210 Nicotine dependence, cigarettes, uncomplicated; E10.22 Type 1 diabetes mellitus with diabetic chronic kidney disease; E10.51 Type 1 diabetes mellitus with diabetic peripheral angiopathy without gangrene; E10.42 Type 1 diabetes mellitus with diabetic polyneuropathy; E10.621 Type 1 diabetes mellitus with foot ulcer; F41.8 Other specified anxiety disorders; M19.90 Unspecified osteoarthritis, unspecified site; Z89.611 Acquired absence of right leg above knee; Z99.2 Dependence on renal dialysis; Z89.512 Acquired absence of left leg below knee; Z88.0 Allergy status to penicillin; Z86.14 Personal history of Methicillin resistant Staphylococcus aureus infection; Z90.710 Acquired absence of both cervix and uterus; Z79.4 Long term (current) use of insulin; Z79.890 Hormone replacement therapy; Z79.891 Long term (current) use of opiate analgesic; Z79.899 Other long term (current) drug therapy; Z88.8 Allergy status to other drugs, medicaments and biological substances; Z98.890 Other specified postprocedural states; Z68.39 Body mass index [BMI] 39.0-39.9, adult
CPT/HCPCS: 36415; 36430; 71045; 73700; 73723; 80048; 80053; 80069; 80202; 82010; 82803; 82947; 83605; 83735; 84100; 84145; 85014; 85018; 85025; 85027; 85651; 86140; 86850; 86900; 86901; 86923; 87040; 88307; 94640; 94660; 94760; 94762; 96365; 96375; 99285-25; A9270; A9579; C1751; J0171; J0881; J1100; J1171; J1644; J1815; J2003; J2060; J2185; J2270; J2371; J2405; J2704; J2795; J3010; J3370; J3480; J7030; J7040; J7050; J7799; P9016; P9047

== ENCOUNTER 2024-06-30 18:05 | Inpatient (IN) | payer MEDICARE, OTHER ==
[~2024-06-30] VITALS: Ht 182.9 cm; Wt 128.5 kg
[~2024-06-30 18:05] MED LIST changes: +MICONAZOLE NITR85 GM TOP
[2024-06-30 19:08] LABS: BASOPHILS ABSOLUTE AUTO 0.06 K/mm3 (0.00-0.23); BASOPHILS PERCENT AUTO 1 % (0-2); EOSINOPHILS ABSOLUTE AUTO 0.29 K/mm3 (0.00-0.68); EOSINOPHILS PERCENT AUTO 5 % (0-6); Hematocrit 30.1 % (33.0-51.0); Hemoglobin 9.3 g/dL (11.5-16.0); IMMATURE GRAN ABSOLUTE AUTO 0.05 K/mm3 (0.00-0.10); IMMATURE GRAN PERCENT AUTO 1 % (0-1); LYMPHOCYTES ABSOLUTE AUTO 0.55 K/mm3 (0.84-5.20); LYMPHOCYTES PERCENT AUTO 9 % (21-46); MONOCYTES ABSOLUTE AUTO 0.48 K/mm3 (0.16-1.47); MONOCYTES PERCENT AUTO 8 % (4-13); Mean Corpuscular HGB 28.3 pg (26.0-34.0); Mean Corpuscular HGB Conc 30.9 g/dL (31.5-36.5); Mean Corpuscular Volume 92 fL (80-100); Mean Platelet Volume 11.2 fL (9.1-12.4); NEUTROPHILS PERCENT AUTO 76 % (41-73); Platelet Count 249 K/mm3 (150-400); RDW Coefficient Variation 15.1 % (11.7-14.2); RDW Standard Deviation 51.2 fL (35.1-46.3); Red Blood Cell Count 3.29 M/mm3 (3.80-5.20); White Blood Cell Count 5.83 K/mm3 (4.00-11.30)
[2024-06-30 19:44] LABS: Albumin, Blood 2.5 g/dL (3.4-5.0); Albumin/Globulin Ratio 0.6 (0.8-1.8); Bilirubin, Total 0.3 mg/dL (0.1-1.0); Bun/Creatinine Ratio 5.7 (12.0-20.0); Creatinine, Blood 6.18 mg/dL (0.40-1.00); Globulin, Blood 4.1 g/dL (2.2-4.0); Potassium, Blood 4.1 mmol/L (3.5-5.5); Total Protein, Blood 6.6 g/dL (6.4-8.2)
[2024-06-30] MEDS ORDERED: Morphine Sulfate 4 MG/1 ML Injection IV ONE (22:55)
[2024-06-30 23:07] LABS: Influenza A, PCR NEGATIVE (NEGATIVE); Influenza B, PCR NEGATIVE (NEGATIVE); Resp Syncytial Virus, PCR NEGATIVE (NEGATIVE); SARS-Cov-2 (COVID-19) PCR, MMC NEGATIVE (NEGATIVE)
[2024-07-01] VITALS (15 sets, daily range): BP systolic 107–144; BP diastolic 54–87
[2024-07-01] MEDS ORDERED: Meropenem 1,000 MG in NS 100 ML IV ONE (00:55)
[2024-07-01] MEDS ORDERED: Vancomycin HCL 2,000 MG in NS 500 ML IV ONE (01:35)
[2024-07-01] MEDS ORDERED: OxyCODONE 10/Acetamin 325 TABLET PO PRN (02:55)
[2024-07-01] MEDS ORDERED: Ondansetron HCl 2 MG / ML 2ML Vial IV PRN ×2 (05:55→12:50)
[2024-07-01] MEDS ORDERED: D5W-1/2NS 1,000 ML IV SCH (09:00)
[2024-07-01] MEDS ORDERED: Lactated Ringer's 1,000 ML IV SCH (10:15)
[2024-07-01] MEDS ORDERED: NS 1,000 ML IV SCH (10:20)
[2024-07-01] MEDS ORDERED: Dextrose 50% 50 ML Vial IV ONE (11:15)
[2024-07-01] MEDS ORDERED: Mometasone/Formoterol MDI 100/5 mcg 13 GM INH SCH (11:20)
[2024-07-01] MEDS ORDERED: Albuterol 2.5 MG/3 ML VIAL INH PRN (11:25)
[2024-07-01] MEDS ORDERED: propofoL 20 ML IV ONE (11:36)
[2024-07-01] MEDS ORDERED: FentaNYL Citrate 50 MCG/ML 2 ML Injection ONE (11:36)
[2024-07-01] MEDS ORDERED: Lidocaine HCl 2% 20 ML MDV ONE (11:37)
[2024-07-01] MEDS ORDERED: Metoclopramide HCl 5MG / ML 2ML Vial ONE (11:37)
[2024-07-01] MEDS ORDERED: Ondansetron HCl 2 MG / ML 2ML Vial ONE (11:37)
[2024-07-01] MEDS ORDERED: Rocuronium Bromide 10 MG/ML 5ML Injection IV ONE (11:37)
[2024-07-01] MEDS ORDERED: Phenylephrine HCl 100 MCG/ML-NS 10MLSYR (1MG/10ML) ONE (11:43)
[2024-07-01] MEDS ORDERED: Magnesium Hydroxide Conc 10 ML UDC PO PRN (11:50)
[2024-07-01] MEDS ORDERED: Bisacodyl 10 MG Supp PR PRN (11:50)
[2024-07-01] MEDS ORDERED: FLU VACC TS2024-25(6MOS UP)/PF 45 MCG/0.5 ML SYRINGE IM SCH (11:50)
[2024-07-01] MEDS ORDERED: Sugammadex Sodium 200 MG/2ML SDV (100 MG/ML) ONE ×2 (12:35→12:52)
[2024-07-01] MEDS ORDERED: FentaNYL Citrate 50 MCG/ML 2 ML Injection IV PRN ×2 (12:50→12:55)
[2024-07-01] MEDS ORDERED: HYDROmorphone HCl/Pf 1MG SYR IV PRN (12:50)
[2024-07-01] MEDS ORDERED: XPHOZAH30 MG PO (14:26)
[2024-07-01] MEDS ORDERED: Morphine Sulfate 4 MG/1 ML Injection IV PRN (14:40)
--- NOTE | 2024-07-01 15:12 | NUR ---
ARRIVAL TO UNIT PT ARRIVED TO UNIT FROM PACU VIA GURNEY. SLID WITH SLIDER SHEET. PT REPORTED MINIMAL SENSATION TO LEFT STUMP WHEN ASKED. REQUESTED HER HOME DOSE OF OXYCODONE. ORDERS IN AND ADMINISTERED. WOUND VAC PATENT AND FUNCTIONING, FOAM COMPRESSED. SET TO 120. Y SITED TO TWO SITES ON LEFT AKA. PT ON 1L NASAL CANULA, SATS 98%. PT DOES NOT WANT OXYGEN TURNED OFF AND STATES SHE DESATS FAST.
--- NOTE | 2024-07-01 17:56 | NUR ---
END OF SHIFT PT RESTING. EATING MEAL. WOUND VAC FUNCTIONING WITHOUT PROBLEMS. SON AT BEDSIDE. PT DENIES COMPLAINTS.
[2024-07-01] MEDS ORDERED: Insulin Regular 100 UNIT/ML 10ML Vial SC SCH (18:00)
--- NOTE | 2024-07-01 18:30 | NUR ---
TELE BOX VERIFIED AT 1800 NSR WITH RATE OF 67
[2024-07-01] MEDS ORDERED: NS 250 ML IV PRN (19:45)
[2024-07-01] MEDS ORDERED: Docusate Sodium 100 MG Cap PO SCH (21:00)
[2024-07-01] MEDS ORDERED: Meropenem 1,000 MG in NS 100 ML IV SCH (21:00)
[2024-07-01] MEDS ORDERED: Insulin Human Lispro 100 Units/ML 3ML Syringe SC SCH (21:20)
[2024-07-01] MEDS ORDERED: Insulin Glargine-Yfgn 100 Unit/mL 3 ML SYR SC SCH (21:20)
[2024-07-01 22:26] LABS: Vancomycin, Random 29.3 ug/mL
[2024-07-02] VITALS (23 sets, daily range): BP systolic 95–143; BP diastolic 47–77
[2024-07-02] MEDS ORDERED: FentaNYL Citrate 50 MCG/ML 2 ML Injection IV PRN (00:20)
[2024-07-02] MEDS ORDERED: Calcium Carbonate 500 MG Tab Chew PO PRN (00:20)
--- NOTE | 2024-07-02 05:39 | NUR ---
SHIFT SUMMARY PT POD 0 I&D OF LEFT STUMP. WOUND VAC IN PLACE WITH MINIMAL DRAINAGE. S/S DISCHARGE. PAIN MANAGED WITH MEDS PER EMAR. IV ANTIBIOTICS. PT TOLERATING PO INTAKE. PT REPORTS SHE IS TO HAVE DIALYSIS TOMORROW. PLAN OF CARE REMAINS UNCHANGED. VITALS STABLE. BED IN LOWEST POSITION, CALL LIGHT WITHIN REACH.
[2024-07-02 06:06] LABS: BASOPHILS ABSOLUTE AUTO 0.06 K/mm3 (0.00-0.23); BASOPHILS PERCENT AUTO 1 % (0-2); EOSINOPHILS ABSOLUTE AUTO 0.44 K/mm3 (0.00-0.68); EOSINOPHILS PERCENT AUTO 8 % (0-6); Hematocrit 27.5 % (33.0-51.0); Hemoglobin 8.2 g/dL (11.5-16.0); IMMATURE GRAN ABSOLUTE AUTO 0.06 K/mm3 (0.00-0.10); IMMATURE GRAN PERCENT AUTO 1 % (0-1); LYMPHOCYTES ABSOLUTE AUTO 0.55 K/mm3 (0.84-5.20); LYMPHOCYTES PERCENT AUTO 11 % (21-46); MONOCYTES ABSOLUTE AUTO 0.43 K/mm3 (0.16-1.47); MONOCYTES PERCENT AUTO 8 % (4-13); Mean Corpuscular HGB 27.7 pg (26.0-34.0); Mean Corpuscular HGB Conc 29.8 g/dL (31.5-36.5); Mean Corpuscular Volume 93 fL (80-100); Mean Platelet Volume 11.2 fL (9.1-12.4); NEUTROPHILS ABSOLUTE AUTO 3.72 K/mm3 (1.96-9.15); NEUTROPHILS PERCENT AUTO 71 % (41-73); Platelet Count 234 K/mm3 (150-400); RDW Coefficient Variation 15.5 % (11.7-14.2); RDW Standard Deviation 52.8 fL (35.1-46.3); Red Blood Cell Count 2.96 M/mm3 (3.80-5.20); White Blood Cell Count 5.26 K/mm3 (4.00-11.30)
[2024-07-02 06:28] LABS: Albumin, Blood 2.4 g/dL (3.4-5.0); Anion Gap 13 mmol/L (3-11); Blood Urea Nitrogen 40 mg/dL (8-24); Bun/Creatinine Ratio 5.7 (12.0-20.0); CO2, Blood 28 mmol/L (21-32); Calcium, Blood 7.8 mg/dL (8.5-10.1); Chloride, Blood 94 mmol/L (98-108); Creatinine, Blood 6.98 mg/dL (0.40-1.00); Glomerular Filtration Rate 6 (60-); Glucose, Blood 170 mg/dL (70-99); Sodium, Blood 131 mmol/L (136-145)
[2024-07-02 06:30] LABS: Phosphorus, Blood 8.1 mg/dL (2.5-4.9)
--- NOTE | 2024-07-02 08:29 | NUR ---
PT TAKEN TO DIALYSIS.
[2024-07-02] MEDS ORDERED: Heparin Sodium,Porcine 5,000 UNIT/0.5 ML SDV SC SCH (12:00)
[2024-07-02] MEDS ORDERED: Tranexamic Acid 100 ML IV SCH (12:30)
[2024-07-02] MEDS ORDERED: DiphenhydrAMINE HCl 50 MG Cap PO PRN (12:55)
[2024-07-02] MEDS ORDERED: Midodrine 5 MG Tab PO PRN (13:00)
[2024-07-02] MEDS ORDERED: BusPIRone HCl 10 MG Tab PO PRN (13:00)
--- NOTE | 2024-07-02 14:30 | NUR ---
SHORTNESS OF BREATH PT COMPLAINED OF SHORTNESS OF BREATH AND NOTIFIED THIS RN AT APPROXIMATELY 1400. LUNG SOUNDS DIM T/O BUT MORE SO ON THE RIGHT. O2 SATURATION 100% ON 3L O2 VIA NC. RESP RATE/EFFORT EVEN AND UNLABORED. PT DIAPHORETIC. SHE ALSO REPORTS FEELING ANXIOUS. BREATHING TX GIVEN BY RT. DR. MADERA AT BEDSIDE TO ASSESS PT. EKG COMPLETED. SOB IMPROVED AFTER BREATHING TX. PT STATED SHE THOUGHT SHE HAD A PANIC ATTACK.
--- NOTE | 2024-07-02 16:54 | NUR ---
ASSUMED CARE OF PT FROM JAGDISH Jarrett RN PT SITTING UP IN BED, CALL LIGHT IN REACH. MEDICATED PER ORDERS FOR PAIN. SON BEDSIDE.
[2024-07-02] MEDS ORDERED: Misc. Tablet PO SCH (17:00)
[2024-07-02] MEDS ORDERED: Sevelamer Carbonate 800 MG Tab PO SCH (17:30)
[2024-07-02] MEDS ORDERED: Calcium Acetate 667 MG Gel Cap PO SCH (17:30)
--- NOTE | 2024-07-02 17:37 | NUR ---
SHIFT SUMMARY PT IS POD#1 FROM L STUMP I&D WITH WOUND VAC PLACEMENT. WOUND VAC HAS BEEN FUNCTIONING PROPERLY. PAIN MANAGED WITH PO AND IV PAIN MEDICATION. PT HAD DIALYSIS TODAY. VSS. REPORT GIVEN TO ROLLY DOLAN.
[2024-07-02] MEDS ORDERED: Rivaroxaban 10 MG Tab PO SCH (18:00)
[2024-07-02] MEDS ORDERED: Miconazole Nitrate 2% 85 GM PWD TOP SCH (21:00)
[2024-07-02] MEDS ORDERED: Gabapentin 300 MG Cap PO SCH (21:00)
[2024-07-02] MEDS ORDERED: Montelukast Sodium 10 MG Tab PO SCH (21:00)
[2024-07-02 23:38] LABS: Vancomycin, Random 23.6 ug/mL
[2024-07-03] VITALS (16 sets, daily range): BP systolic 106–131; BP diastolic 54–82
[2024-07-03 03:57] LABS: Hematocrit 26.7 % (33.0-51.0)
[2024-07-03 04:21] LABS: Albumin, Blood 2.4 g/dL (3.4-5.0); Anion Gap 12 mmol/L (3-11); Blood Urea Nitrogen 25 mg/dL (8-24); Bun/Creatinine Ratio 4.8 (12.0-20.0); CO2, Blood 29 mmol/L (21-32); Calcium, Blood 7.8 mg/dL (8.5-10.1); Chloride, Blood 97 mmol/L (98-108); Creatinine, Blood 5.26 mg/dL (0.40-1.00); Glomerular Filtration Rate 9 (60-); Glucose, Blood 162 mg/dL (70-99); Magnesium, Blood 2.1 mg/dL (1.6-2.4); Phosphorus, Blood 6.1 mg/dL (2.5-4.9); Potassium, Blood 3.7 mmol/L (3.5-5.5); Sodium, Blood 134 mmol/L (136-145)
[2024-07-03] MEDS ORDERED: Pantoprazole Sodium 40 MG Tab PO SCH (06:00)
[2024-07-03] MEDS ORDERED: Levothyroxine Sodium 0.125 MG Tab PO SCH (06:00)
--- NOTE | 2024-07-03 06:21 | NUR ---
SHIFT SUMMARY PT HAS RESTED T/O THE NIGHT. INTERMITTENT PAIN AT SURGICAL SITE, MEDS PER EMAR. DURING ROUNDS PT APPEARED SLEEPING, WITH SNORING. AWAKES EASILY, AND USES CALL NIGHT APPROPRIATELY. PLAN IS FOR SECOND I&D TODAY. PT HAS BEEN NPO SINCE MIDNIGHT. IV ANTIBIOTICS PER ORDERS. VITALS STABLE. PLAN OF CARE REMAINS UNCHANGED. BED IN LOWEST POSITION, CALL LIGHT WITHIN REACH.
[2024-07-03] MEDS ORDERED: propofoL 20 ML IV ONE (07:45)
[2024-07-03] MEDS ORDERED: Dextrose 50% 50 ML Syringe ONE (08:07)
[2024-07-03] MEDS ORDERED: Dextrose 5% 1,000 ML IV SCH (08:25)
[2024-07-03] MEDS ORDERED: Dextrose 50% 50 ML Vial IV ONE (08:50)
[2024-07-03] MEDS ORDERED: FLUoxetine HCL 20 MG CAP PO SCH (09:00)
[2024-07-03] MEDS ORDERED: Sodium Zirconium Cyclosilicate 10 GM Packet PO SCH (09:00)
[2024-07-03] MEDS ORDERED: Tranexamic Acid 100 ML IV SCH (09:00)
[2024-07-03] MEDS ORDERED: FentaNYL Citrate 50 MCG/ML 2 ML Injection ONE (09:12)
[2024-07-03] MEDS ORDERED: HYDROmorphone HCl/Pf 1MG SYR ONE (09:12)
[2024-07-03] MEDS ORDERED: ePHEDrine Sulfate 50 MG/ML 1ML Injection ONE (09:17)
[2024-07-03] MEDS ORDERED: Sodium Chloride 0.9% Inj 20 ML IV ONE (09:20)
[2024-07-03] MEDS ORDERED: Dexamethasone Sod Phos 10 MG/ML 1ML VIAL ONE (09:26)
[2024-07-03] MEDS ORDERED: Ondansetron HCl 2 MG / ML 2ML Vial ONE (09:26)
[2024-07-03] MEDS ORDERED: Dextrose 5% 1,000 ML IV PRN (11:40)
[2024-07-03] MEDS ORDERED: Dextrose 50% 50 ML Vial IV PRN (11:45)
--- NOTE | 2024-07-03 16:18 | NUR ---
PATIENT SLEEPING.RN AND THIS EXTRACTOR AND WRINGER OPERATOR WOKE PATIENT FOR CARE.OFFERED A BED BATH/LINEN CHANGE AND REPOSITIONING IN BED.PATIENT REFUSED.
--- NOTE | 2024-07-03 18:31 | NUR ---
PATIENT IS ALERT AND ORIENTED AND COOPERATIVE WITH CARE. HER BG FIRST THING THIS MORNING WAS 36, TREATED PER PROTOCOL. SHE THEN WENT TO THE OR FOR A CLEAN OUT AND WOUND VAC REPLACEMENT TO HER LEFT STUMP. FOLLOWING SURGERY HER VITALS HAVE BEEN STABLE, SHE ATE LUNCH THAT HER FAMILY BROUGHT IN AND HER BLOOD GLUCOSE IS ELEVATED AT 379. PATIENT SLEPT FOR A FEW HOURS THIS AFTERNOON. MEDICATED FOR PAIN PER EMAR. SHE HAD A BM THIS EVENING. BARRIER CREAM AND NYSTATIN POWDER APPLIED TO HER COCCYX. A FEW SCRATCH KUO ON COCCYX. ON 3L O2 VIA NC PER REQUEST. WILL CONTINUE TO MONITOR
--- NOTE | 2024-07-03 20:16 | NUR ---
DOCTOR COMMUNICATION CALL PLACED TO HOSPITALIST FOR CBG OF 438 THIS PM. RECIEVED ORDER FOR MEDIUM SLIDING SCALE. NO FURTHER ORDERS AT THIS TIME
[2024-07-03] MEDS ORDERED: Insulin Glargine-Yfgn 100 Unit/mL 3 ML SYR SC SCH (21:00)
[2024-07-03] MEDS ORDERED: Insulin Human Lispro 100 Units/ML 3ML Syringe SC SCH (21:00)
[2024-07-03 22:22] LABS: Vancomycin, Random 21.8 ug/mL
[2024-07-03] MEDS ORDERED: Omeprazole 20 MG CapCR PO ONE (23:55)
[2024-07-04] VITALS (15 sets, daily range): BP systolic 99–129; BP diastolic 42–72
[2024-07-04] MEDS ORDERED: Mag Hydrox/Al Hydrox/Simeth 18 ML,Lidocaine 2% Viscous Soln 9 ML,Atropine/Scopalam/Hyos... PO ONE (01:55)
--- NOTE | 2024-07-04 04:48 | NUR ---
LAB COMMUNICATION WAREHOUSE MANAGER NOTIFIED THIS RN THAT THE PATIENT REFUSED HER AM LABS AND REQUESTED A LATER TIME.
--- NOTE | 2024-07-04 05:10 | NUR ---
SHIFT SUMMARY POD1 #2 I&D ON L STUMP. UNABLE TO COMPLETELY VISUALIZE STUMP AND WOUND VAC, PT ENDORSES NOT WANTING TO MOVE FOR THE ASSESSMENT THE PREVIOUS RN HAD PERFORMED ONE. WOUND VAC HAS SUCTION, MINIMAL DRAINAGE NOTED IN CANNISTER. VSS. PT HAS SLEPT ON AND OFF T/O THE NIGHT, MEDICATED FOR PAIN W/ NORCO AND FENT W/TOLLERABLE RESULTS. PT STRUGGLED W/ GERD T/O THE NIGHT- PLEASE SEE EMAR FOR UPDTED MEDICATION ADMINISTRATION. NO URINE OUTPUT NOTED, NO BM'S NOTED. MINIMAL PO INTAKE NOTED. PLAN FOR DIALYSIS TODAY- DR. HESS ASKED THAT THE ATTRACTION WORKER DRAWS PTS AM LABS. NURSE NOTIFY PLACED. INSULIN COVERAGE INCREASED FROM LOW SLIDING SCALE TO MEDIUM SLIDING SCALE. OVERALL, NO ACUTE EVENTS NOTED.
[2024-07-04 06:19] LABS: BASOPHILS ABSOLUTE AUTO 0.04 K/mm3 (0.00-0.23); BASOPHILS PERCENT AUTO 1 % (0-2); EOSINOPHILS ABSOLUTE AUTO 0.02 K/mm3 (0.00-0.68); EOSINOPHILS PERCENT AUTO 0 % (0-6); Hematocrit 27.3 % (33.0-51.0); Hemoglobin 8.3 g/dL (11.5-16.0); IMMATURE GRAN ABSOLUTE AUTO 0.09 K/mm3 (0.00-0.10); IMMATURE GRAN PERCENT AUTO 2 % (0-1); LYMPHOCYTES ABSOLUTE AUTO 0.47 K/mm3 (0.84-5.20); LYMPHOCYTES PERCENT AUTO 9 % (21-46); MONOCYTES ABSOLUTE AUTO 0.37 K/mm3 (0.16-1.47); MONOCYTES PERCENT AUTO 7 % (4-13); Mean Corpuscular HGB Conc 30.4 g/dL (31.5-36.5); Mean Corpuscular Volume 92 fL (80-100); Mean Platelet Volume 10.5 fL (9.1-12.4); NEUTROPHILS ABSOLUTE AUTO 4.57 K/mm3 (1.96-9.15); NEUTROPHILS PERCENT AUTO 82 % (41-73); Platelet Count 275 K/mm3 (150-400); RDW Coefficient Variation 15.8 % (11.7-14.2); RDW Standard Deviation 52.6 fL (35.1-46.3); Red Blood Cell Count 2.96 M/mm3 (3.80-5.20); White Blood Cell Count 5.56 K/mm3 (4.00-11.30)
[2024-07-04 06:46] LABS: Magnesium, Blood 2.2 mg/dL (1.6-2.4)
[2024-07-04 06:47] LABS: Albumin, Blood 2.4 g/dL (3.4-5.0); Albumin/Globulin Ratio 0.7 (0.8-1.8); Bilirubin, Total 0.3 mg/dL (0.1-1.0); Bun/Creatinine Ratio 5.9 (12.0-20.0); Calcium, Blood 8.1 mg/dL (8.5-10.1); Creatinine, Blood 6.06 mg/dL (0.40-1.00); Globulin, Blood 3.6 g/dL (2.2-4.0); Phosphorus, Blood 6.2 mg/dL (2.5-4.9); Potassium, Blood 4.5 mmol/L (3.5-5.5)
--- NOTE | 2024-07-04 09:12 | NUR ---
PT TO INPATIENT DIALYSIS VIA BED
[2024-07-04 09:15] LABS: Vancomycin, Random 20.6 ug/mL
[2024-07-04] MEDS ORDERED: Vancomycin HCL 1,250 MG in NS 250 ML IV ONE (15:00)
--- NOTE | 2024-07-04 17:06 | NUR ---
END OF SHIFT PT RESTING COMFORTABLY. MEDICATED FOR PAIN PER ORDER/REQUEST. NEW POWER PORT MIDLINE IV PRESENT LUE. ANTIBIOTICS INFUSING PER ORDER. WOUND VAC ON AND FUNCTIONING LLE. WILL CONTINUE TO MONITOR
[2024-07-05] VITALS (15 sets, daily range): BP systolic 110–151; BP diastolic 47–99
[2024-07-05 05:08] LABS: Hematocrit 20.1 % (33.0-51.0)
[2024-07-05 05:11] LABS: Hemoglobin 5.8 g/dL (11.5-16.0)
[2024-07-05 05:29] LABS: Magnesium, Blood 1.5 mg/dL (1.6-2.4)
[2024-07-05 05:33] LABS: Albumin, Blood 1.7 g/dL (3.4-5.0); Anion Gap 10 mmol/L (3-11); Blood Urea Nitrogen 16 mg/dL (8-24); Bun/Creatinine Ratio 4.6 (12.0-20.0); CO2, Blood 23 mmol/L (21-32); Calcium, Blood 6.3 mg/dL (8.5-10.1); Chloride, Blood 111 mmol/L (98-108); Creatinine, Blood 3.48 mg/dL (0.40-1.00); Glomerular Filtration Rate 15 (60-); Glucose, Blood 64 mg/dL (70-99); Phosphorus, Blood 3.7 mg/dL (2.5-4.9); Potassium, Blood 2.6 mmol/L (3.5-5.5)
[2024-07-05 05:34] LABS: Sodium, Blood 141 mmol/L (136-145)
[2024-07-05 06:53] LABS: Hematocrit 27.6 % (33.0-51.0); Hemoglobin 8.2 g/dL (11.5-16.0)
[2024-07-05 08:32] LABS: Magnesium, Blood 2.1 mg/dL (1.6-2.4)
[2024-07-05 08:37] LABS: Albumin, Blood 2.5 g/dL (3.4-5.0); Anion Gap 10 mmol/L (3-11); Blood Urea Nitrogen 22 mg/dL (8-24); Bun/Creatinine Ratio 4.4 (12.0-20.0); CO2, Blood 31 mmol/L (21-32); Chloride, Blood 97 mmol/L (98-108); Creatinine, Blood 5.04 mg/dL (0.40-1.00); Glomerular Filtration Rate 10 (60-); Glucose, Blood 58 mg/dL (70-99); Phosphorus, Blood 5.4 mg/dL (2.5-4.9); Potassium, Blood 3.6 mmol/L (3.5-5.5); Sodium, Blood 134 mmol/L (136-145)
[2024-07-05 08:38] LABS: Calcium, Blood 8.7 mg/dL (8.5-10.1)
[2024-07-05 09:48] LABS: Vancomycin, Random 32.3 ug/mL
[2024-07-05 15:45] LABS: Hematocrit 28.8 % (33.0-51.0); Hemoglobin 8.6 g/dL (11.5-16.0); Mean Corpuscular HGB 27.7 pg (26.0-34.0); Mean Corpuscular HGB Conc 29.9 g/dL (31.5-36.5); Mean Corpuscular Volume 93 fL (80-100); Mean Platelet Volume 10.2 fL (9.1-12.4); Platelet Count 276 K/mm3 (150-400); RDW Coefficient Variation 15.7 % (11.7-14.2); RDW Standard Deviation 53.2 fL (35.1-46.3); Red Blood Cell Count 3.11 M/mm3 (3.80-5.20); White Blood Cell Count 5.01 K/mm3 (4.00-11.30)
--- NOTE | 2024-07-05 16:22 | NUR ---
WOUND VAC LEFT STUMP X-2 CHANGED AND MEASURED FOR CARE MANAGEMENT. TEGADERM REMOVED USING ADHESIVE REMOVER. LATERAL WOUND FOAM CUT TO SIZE IM ONE PIECE. MEDIAL WOUND CUT TO SIZE USING TWO PIECES. COVERED WTIH TELFA/CLEAR ADHESIVE DRESSING. REATTACHED TO WOUND VAC PUMP USING NEW TUBING AND CONNECTORS. WOUND SEALED WITHOUT LEAKS. WOUND MEASUREMENTS CHARTED IN WOUND ASSESSMENT INTERVENTIONS. ASSISTED BY BLAIR/MAGDALENO
--- NOTE | 2024-07-05 17:54 | NUR ---
END OF SHIFT PT EATING. FAMILY AT BEDSIDE. WOUND VAC ON AND FUNCTIONING. WILL CONTINUE TO MONITOR.
[2024-07-06 06:28] VITALS: BP 141/62
[2024-07-06 07:23] VITALS: BP 135/65
[2024-07-06 11:19] LABS: Hematocrit 30.1 % (33.0-51.0)
[2024-07-06 11:43] LABS: Albumin, Blood 2.6 g/dL (3.4-5.0); Anion Gap 9 mmol/L (3-11); Blood Urea Nitrogen 23 mg/dL (8-24); Bun/Creatinine Ratio 4.5 (12.0-20.0); CO2, Blood 30 mmol/L (21-32); Calcium, Blood 8.9 mg/dL (8.5-10.1); Chloride, Blood 97 mmol/L (98-108); Creatinine, Blood 5.13 mg/dL (0.40-1.00); Glomerular Filtration Rate 9 (60-); Glucose, Blood 159 mg/dL (70-99); Magnesium, Blood 2.1 mg/dL (1.6-2.4); Potassium, Blood 4.6 mmol/L (3.5-5.5); Sodium, Blood 131 mmol/L (136-145); Vancomycin, Random 26.1 ug/mL
[2024-07-06 15:31] VITALS: BP 114/49
--- NOTE | 2024-07-06 17:27 | NUR ---
SUMMARY NO ACUTE CHANGES THIS SHIFT. PT SLEPT T/O MOST OF DAY. MEDICATED PER ORDERS FOR PAIN. NO DIALYSIS THIS SHIFT. SON AT BEDSIDE AT THIS TIME. CALL LIGHT IN REACH.
[2024-07-06 19:07] VITALS: BP 142/55
[2024-07-07] VITALS (19 sets, daily range): BP systolic 91–140; BP diastolic 44–91
[2024-07-07 06:17] LABS: BASOPHILS ABSOLUTE AUTO 0.07 K/mm3 (0.00-0.23); BASOPHILS PERCENT AUTO 1 % (0-2); EOSINOPHILS ABSOLUTE AUTO 0.48 K/mm3 (0.00-0.68); EOSINOPHILS PERCENT AUTO 9 % (0-6); Hematocrit 30.9 % (33.0-51.0); Hemoglobin 9.2 g/dL (11.5-16.0); IMMATURE GRAN ABSOLUTE AUTO 0.07 K/mm3 (0.00-0.10); IMMATURE GRAN PERCENT AUTO 1 % (0-1); LYMPHOCYTES ABSOLUTE AUTO 0.75 K/mm3 (0.84-5.20); LYMPHOCYTES PERCENT AUTO 14 % (21-46); MONOCYTES ABSOLUTE AUTO 0.34 K/mm3 (0.16-1.47); MONOCYTES PERCENT AUTO 6 % (4-13); Mean Corpuscular HGB 27.8 pg (26.0-34.0); Mean Corpuscular HGB Conc 29.8 g/dL (31.5-36.5); Mean Corpuscular Volume 93 fL (80-100); Mean Platelet Volume 10.7 fL (9.1-12.4); NEUTROPHILS ABSOLUTE AUTO 3.75 K/mm3 (1.96-9.15); NEUTROPHILS PERCENT AUTO 69 % (41-73); Platelet Count 282 K/mm3 (150-400); RDW Coefficient Variation 15.9 % (11.7-14.2); RDW Standard Deviation 54.1 fL (35.1-46.3); Red Blood Cell Count 3.31 M/mm3 (3.80-5.20); White Blood Cell Count 5.46 K/mm3 (4.00-11.30)
[2024-07-07 06:40] LABS: Albumin, Blood 2.7 g/dL (3.4-5.0); Anion Gap 12 mmol/L (3-11); Blood Urea Nitrogen 29 mg/dL (8-24); Bun/Creatinine Ratio 4.9 (12.0-20.0); CO2, Blood 28 mmol/L (21-32); Calcium, Blood 8.9 mg/dL (8.5-10.1); Chloride, Blood 98 mmol/L (98-108); Creatinine, Blood 5.86 mg/dL (0.40-1.00); Glomerular Filtration Rate 8 (60-); Glucose, Blood 93 mg/dL (70-99); Phosphorus, Blood 3.5 mg/dL (2.5-4.9); Potassium, Blood 4.8 mmol/L (3.5-5.5); Sodium, Blood 133 mmol/L (136-145); Vancomycin, Random 26.1 ug/mL
--- NOTE | 2024-07-07 07:00 | NUR ---
SHIFT SUMMARY NOC. PT POD 4 FOR I&D OF LEFT STUMP. PT MEDICATED FOR PAIN WITH ORAL PERCOCET X2 TABS APPROX Q 4 HRS. PT DECLINING REPOSITIONING. PT ITCHING BILATERAL ARMS THIS MORNING UNTIL THEY BLED. EDUCATION PROVIDED PT DECLINED DRESSING APPLICATION BUT ALLOWED BANDAID PLACEMENT FOR ONE BLEEDING SCRATCH TO LEFT HAND. WOUND VAC PATENT. PT MAKES NEEDS KNOWN, CALL LIGHT IN REACH.
--- NOTE | 2024-07-07 09:13 | NUR ---
PT IN DIALYSIS SINCE APPROXIMATELY [id number].
[2024-07-07] MEDS ORDERED: Alteplase Recombinant 2 MG / Vial IV PRN (09:30)
--- NOTE | 2024-07-07 14:13 | NUR ---
ASSUMPTION OF CARE: REPORT FROM ABIGAIL Quiros RN, THIS RN TO ASSUME CARE OF PT. PT RESING IN BED WITH NO COMPLAINTS AT THIS TIME. NOT IN ANY DISTRESS. REMAINS ON CONTINUOUS BIOX. SATS >95% ON 3L NC. DENIES ANY NEEDS. CALL LIGHT IN REACH.
--- NOTE | 2024-07-07 15:28 | NUR ---
REPORT TO FANNIE DOLAN TO ASSUME CARE OF PT. NO NEW CHANGES HAVE HAPPENED SINCE THIS RN ASSUMED CARE OF PT. PT SLEEPING WITH EQUAL NONLABORED RESPIRATIONS. CALL LIGHT IN REACH.
[2024-07-08] VITALS (19 sets, daily range): BP systolic 79–185; BP diastolic 37–153
[2024-07-08 05:31] LABS: Hematocrit 31.3 % (33.0-51.0); Hemoglobin 9.3 g/dL (11.5-16.0)
[2024-07-08 05:54] LABS: Albumin, Blood 2.8 g/dL (3.4-5.0); Anion Gap 9 mmol/L (3-11); Blood Urea Nitrogen 26 mg/dL (8-24); Bun/Creatinine Ratio 5.1 (12.0-20.0); CO2, Blood 29 mmol/L (21-32); Calcium, Blood 8.5 mg/dL (8.5-10.1); Chloride, Blood 96 mmol/L (98-108); Creatinine, Blood 5.05 mg/dL (0.40-1.00); Glomerular Filtration Rate 10 (60-); Glucose, Blood 220 mg/dL (70-99); Magnesium, Blood 2.2 mg/dL (1.6-2.4); Phosphorus, Blood 2.9 mg/dL (2.5-4.9); Potassium, Blood 4.9 mmol/L (3.5-5.5); Sodium, Blood 129 mmol/L (136-145); Vancomycin, Random 21.8 ug/mL
--- NOTE | 2024-07-08 06:02 | NUR ---
SHIFT SUMMARY NOC. PT POD 5 FOR I&D OF LEFT AKA STUMP. PT VERBALIZED INCREASE IN BREAKTHROUGH PAIN THIS SHIFT. DISCUSSED WITH CLINICAL CONSULTANTMAGDALENO Kay CALL PLACED TO HOSPITALIST BY CHARGE TO CONFIRM CONTINUATION OF FENT PRN AND CLARIFY PARAMETERS ON MIDODRINE. MIDODRINE D/C'D AND APPROVAL GIVEN TO CONTINUE IV FENT. PT MEDICATED FOR PAIN WITH OXYCODONE/APAP 10/325 2 TABS AND FENT 25MCG X2 DOSES. PT ALSO RECEIVED BENADRYL X2 DOSES FOR ITCHING AND PRN BUSPAR FOR ANXIETY. PT CONCERNED ABOUT HYPOGLYCEMIA IN MORNINGS. PT OPTED TO DECLINE SHORT ACTING INSULIN AT HS AND TAKE 20 UNITS OF LONG ACTING INSTEAD OF 30 UNITS ORDERED, DISCUSSED WITH CHARGE. NO HYPOGLYCEMIC EVENTS OR SX THIS SHIFT. PT DECLINING REPOSITIONING FROM STAFF. PT MAKES NEEDS KNOWN, CALL LIGHT IN REACH.
[2024-07-08] MEDS ORDERED: Vancomycin500 MG/100 IV (11:31)
--- NOTE | 2024-07-08 13:04 | NUR ---
TELE NOTIFIED CHUMMER OF 5 BEAT RUN OF VTACH. PT ASYMPTOMATIC. THIS RN NOTIFIED PRIMARY RN.
--- NOTE | 2024-07-08 15:27 | NUR ---
DISCHARGE POD 5 I&D L AKA WOUND VAC CHANGED PRIOR TO DISCHARGE. 2 PIECES OF FOAM PLACED TO MEDIAL OPENING. 1 PIECE OF FOAM TO LATERAL OPENING. PT TOLERATED WELL, MINIMAL DRAINAGE OUT. PT COOPERATIVE WITH CARE AND REPOSITIONING TODAY. HAD DIALYSIS THIS MORNING. NO PAIN DURING SHIFT. ALL BELONGINGS SENT WITH PATIENT. HOME WOUND VAC PLACED ON.
== END 2024-07-08 15:17 | disposition home health service (06) | DRG 500 ==
LOC: ER 18:05 → SURS 07-01 02:41 → ERHOLD 07-01 02:41 → SURS 07-01 13:19
PROVIDERS: Family Medicine; Internal Medicine Nephrology; Orthopaedic Surgery; Student in an Organized Health Care Education/Training Program; ADMIT Student in an Organized Health Care Education/Training Program
PROC: 5A09357 Assistance with Respiratory Ventilation, Less than 24 Consecutive Hours, Continuous Positive Airway Pressure (ICD-10-PCS; 2024-07-01)
PROC: 0JDM0ZZ Extraction of Left Upper Leg Subcutaneous Tissue and Fascia, Open Approach (ICD-10-PCS; principal; 2024-07-01 11:30)
PROC: 5A1D70Z Performance of Urinary Filtration, Intermittent, Less than 6 Hours Per Day (ICD-10-PCS; 2024-07-02)
PROC: 0JDM0ZZ Extraction of Left Upper Leg Subcutaneous Tissue and Fascia, Open Approach (ICD-10-PCS; 2024-07-03)
PROC: 30233N1 Transfusion of Nonautologous Red Blood Cells into Peripheral Vein, Percutaneous Approach (ICD-10-PCS; 2024-07-05)
DX: T87.44 Infection of amputation stump, left lower extremity (principal); N18.6 End stage renal disease; I50.32 Chronic diastolic (congestive) heart failure; I13.2 Hypertensive heart and chronic kidney disease with heart failure and with stage 5 chronic kidney disease, or end stage renal disease; E66.2 Morbid (severe) obesity with alveolar hypoventilation; L02.416 Cutaneous abscess of left lower limb; E87.1 Hypo-osmolality and hyponatremia; Y83.5 Amputation of limb(s) as the cause of abnormal reaction of the patient, or of later complication, without mention of misadventure at the time of the procedure; F41.8 Other specified anxiety disorders; J45.909 Unspecified asthma, uncomplicated; I89.0 Lymphedema, not elsewhere classified; E11.51 Type 2 diabetes mellitus with diabetic peripheral angiopathy without gangrene; E11.22 Type 2 diabetes mellitus with diabetic chronic kidney disease; I08.0 Rheumatic disorders of both mitral and aortic valves; T87.89 Other complications of amputation stump; E03.9 Hypothyroidism, unspecified; G89.4 Chronic pain syndrome; M19.90 Unspecified osteoarthritis, unspecified site; F17.210 Nicotine dependence, cigarettes, uncomplicated; E11.40 Type 2 diabetes mellitus with diabetic neuropathy, unspecified; R79.1 Abnormal coagulation profile; D63.1 Anemia in chronic kidney disease; F41.0 Panic disorder [episodic paroxysmal anxiety]; E11.649 Type 2 diabetes mellitus with hypoglycemia without coma; D64.89 Other specified anemias; E83.39 Other disorders of phosphorus metabolism; Z99.2 Dependence on renal dialysis; Z86.14 Personal history of Methicillin resistant Staphylococcus aureus infection; Z88.0 Allergy status to penicillin; Z79.890 Hormone replacement therapy; Z79.4 Long term (current) use of insulin; Z79.51 Long term (current) use of inhaled steroids; Z68.39 Body mass index [BMI] 39.0-39.9, adult
CPT/HCPCS: 0241U; 36415; 71045; 71260; 73701; 80053; 80069; 80202; 82947; 83735; 83880; 84100; 84484; 85014; 85018; 85025; 85027; 85379; 85651; 86140; 86850; 86900; 86901; 86923; 87070; 87071; 87075; 87205; 93005; 93010; 94640; 94660; 94664; 94760; 94762; 96374; 96375; 99285-25; A9270; C1751; J1100; J1171; J1644; J1815; J2185; J2270; J2371; J2405; J2704; J2765; J2997; J3010; J3370; J7030; J7040; J7042; J7050; J7799; Q9967

== ENCOUNTER 2024-07-12 20:02 | Emergency (ER) | payer MEDICARE, OTHER ==
[~2024-07-12] VITALS: Wt 131.5 kg
[~2024-07-12 20:02] MED LIST changes: +Vancomycin500 MG/100 IV; +XPHOZAH30 MG PO
[2024-07-12 21:00] LABS: BASOPHILS ABSOLUTE AUTO 0.07 K/mm3 (0.00-0.23); BASOPHILS PERCENT AUTO 1 % (0-2); EOSINOPHILS ABSOLUTE AUTO 0.39 K/mm3 (0.00-0.68); EOSINOPHILS PERCENT AUTO 6 % (0-6); Hematocrit 37.3 % (33.0-51.0); Hemoglobin 11.2 g/dL (11.5-16.0); IMMATURE GRAN ABSOLUTE AUTO 0.11 K/mm3 (0.00-0.10); IMMATURE GRAN PERCENT AUTO 2 % (0-1); LYMPHOCYTES ABSOLUTE AUTO 0.81 K/mm3 (0.84-5.20); LYMPHOCYTES PERCENT AUTO 12 % (21-46); MONOCYTES PERCENT AUTO 6 % (4-13); Mean Corpuscular HGB 27.7 pg (26.0-34.0); Mean Corpuscular Volume 92 fL (80-100); NEUTROPHILS ABSOLUTE AUTO 5.06 K/mm3 (1.96-9.15); NEUTROPHILS PERCENT AUTO 74 % (41-73); RDW Coefficient Variation 16.2 % (11.7-14.2); Red Blood Cell Count 4.05 M/mm3 (3.80-5.20); White Blood Cell Count 6.84 K/mm3 (4.00-11.30)
[2024-07-12 21:03] LABS: Albumin, Blood 2.9 g/dL (3.4-5.0); Albumin/Globulin Ratio 0.8 (0.8-1.8); Bilirubin, Total 0.3 mg/dL (0.1-1.0); Bun/Creatinine Ratio 5.3 (12.0-20.0); Creatinine, Blood 5.29 mg/dL (0.40-1.00); Globulin, Blood 3.7 g/dL (2.2-4.0); Mean Platelet Volume 11.2 fL (9.1-12.4); Platelet Count 155 K/mm3 (150-400); Potassium, Blood 4.8 mmol/L (3.5-5.5); Total Protein, Blood 6.6 g/dL (6.4-8.2)
[2024-07-12 21:19] LABS: Influenza A, PCR NEGATIVE (NEGATIVE); Influenza B, PCR NEGATIVE (NEGATIVE); Resp Syncytial Virus, PCR NEGATIVE (NEGATIVE); SARS-Cov-2 (COVID-19) PCR, MMC NEGATIVE (NEGATIVE)
[2024-07-12] MEDS ORDERED: OxyCODONE HCL 5 MG TAB PO ONE (23:05)
[2024-07-13 02:00] VITALS: BP 143/86
== END 2024-07-13 05:30 | disposition home or self-care (01) ==
LOC: ER 20:02
PROVIDERS: Emergency Medicine
DX: R06.09 Other forms of dyspnea (principal); I12.0 Hypertensive chronic kidney disease with stage 5 chronic kidney disease or end stage renal disease; E10.22 Type 1 diabetes mellitus with diabetic chronic kidney disease; N18.6 End stage renal disease; D63.1 Anemia in chronic kidney disease; E10.40 Type 1 diabetes mellitus with diabetic neuropathy, unspecified; G47.33 Obstructive sleep apnea (adult) (pediatric); J45.909 Unspecified asthma, uncomplicated; E78.5 Hyperlipidemia, unspecified; E03.9 Hypothyroidism, unspecified; F17.210 Nicotine dependence, cigarettes, uncomplicated; E66.01 Morbid (severe) obesity due to excess calories; Z99.2 Dependence on renal dialysis; Z88.0 Allergy status to penicillin; Z79.890 Hormone replacement therapy; Z79.51 Long term (current) use of inhaled steroids; Z79.4 Long term (current) use of insulin; Z79.899 Other long term (current) drug therapy
CPT/HCPCS: 0241U; 71046; 80053; 84484; 85025; 93005; 93010; 99285-25; A9270

== ENCOUNTER → 2024-07-15 | Outpatient (CLI) | payer MEDICARE, OTHER ==
[2024-07-15 10:08] LABS: Vancomycin, Trough 15.2 ug/mL (5.0-10.0)
== END ==
LOC: LAB 08:45 → LAB SHORT 08:45
PROVIDERS: Internal Medicine Nephrology
DX: A49.9 Bacterial infection, unspecified (principal)
CPT/HCPCS: 80202

== ENCOUNTER → 2024-07-20 | Outpatient (CLI) | payer MEDICARE, OTHER | END | disposition home or self-care (01) | LOC: LAB DAV 08:40 | PROVIDERS: Internal Medicine Nephrology | DX: N18.6 End stage renal disease (principal); A49.9 Bacterial infection, unspecified | CPT/HCPCS: 80202 ==

== ENCOUNTER 2024-08-09 07:32 | Inpatient (IN) | payer MEDICARE, OTHER ==
[~2024-08-09] VITALS: Ht 91.4 cm; Wt 130.3 kg
[2024-08-16 10:51] VITALS: BP 134/65
== END 2024-08-16 13:16 | disposition home or self-care (01) | DRG 175 ==
LOC: ER 07:32 → MEDS 15:30 → ER 16:25 → MEDS 16:25 → ENPENDDIS 08-16 13:00 → MEDS 08-16 13:16
PROVIDERS: ADMIT Internal Medicine
PROC: 5A09357 Assistance with Respiratory Ventilation, Less than 24 Consecutive Hours, Continuous Positive Airway Pressure (ICD-10-PCS; principal; 2024-08-09)
PROC: 5A1D70Z Performance of Urinary Filtration, Intermittent, Less than 6 Hours Per Day (ICD-10-PCS; 2024-08-09)
DX: I26.09 Other pulmonary embolism with acute cor pulmonale (principal); N18.6 End stage renal disease; I13.2 Hypertensive heart and chronic kidney disease with heart failure and with stage 5 chronic kidney disease, or end stage renal disease; N25.81 Secondary hyperparathyroidism of renal origin; I50.32 Chronic diastolic (congestive) heart failure; F11.20 Opioid dependence, uncomplicated; I24.89 Other forms of acute ischemic heart disease; E66.2 Morbid (severe) obesity with alveolar hypoventilation; J94.8 Other specified pleural conditions; J96.10 Chronic respiratory failure, unspecified whether with hypoxia or hypercapnia; Z68.43 Body mass index [BMI] 50.0-59.9, adult; E87.1 Hypo-osmolality and hyponatremia; E87.70 Fluid overload, unspecified; Z99.2 Dependence on renal dialysis; Z74.01 Bed confinement status; Z99.81 Dependence on supplemental oxygen; E03.9 Hypothyroidism, unspecified; E78.5 Hyperlipidemia, unspecified; K21.9 Gastro-esophageal reflux disease without esophagitis; K58.9 Irritable bowel syndrome, unspecified; G47.00 Insomnia, unspecified; I89.0 Lymphedema, not elsewhere classified; F41.8 Other specified anxiety disorders; M19.90 Unspecified osteoarthritis, unspecified site; F17.210 Nicotine dependence, cigarettes, uncomplicated; D63.1 Anemia in chronic kidney disease; E10.42 Type 1 diabetes mellitus with diabetic polyneuropathy; E10.51 Type 1 diabetes mellitus with diabetic peripheral angiopathy without gangrene; E10.22 Type 1 diabetes mellitus with diabetic chronic kidney disease; I08.0 Rheumatic disorders of both mitral and aortic valves; G89.4 Chronic pain syndrome; J44.89 Other specified chronic obstructive pulmonary disease; E83.41 Hypermagnesemia; E83.39 Other disorders of phosphorus metabolism; E88.09 Other disorders of plasma-protein metabolism, not elsewhere classified; Z90.710 Acquired absence of both cervix and uterus; Z98.890 Other specified postprocedural states; Z88.0 Allergy status to penicillin; Z79.4 Long term (current) use of insulin; Z86.14 Personal history of Methicillin resistant Staphylococcus aureus infection; Z89.612 Acquired absence of left leg above knee; Z89.611 Acquired absence of right leg above knee

== ENCOUNTER 2024-12-02 02:49 | Day surgery (SDC) | payer MEDICARE, OTHER ==
[~2024-12-02 02:49] MED LIST changes: +ELIQUIS5 M2 PO; +ELIQUIS5 M6 PO; +LASIX80 MG PO; +ROSUVASTATIN CA20 MG PO; +SPIRONOLACTONE25 MG PO
[2024-12-02] MEDS ORDERED: NS 250 ML IV SCH (06:50)
[2024-12-02 07:40] VITALS: BP 113/67
[2024-12-02 08:49] VITALS: BP 81/65
[2024-12-02 09:16] VITALS: BP 91/54
[2024-12-02 10:17] VITALS: BP 107/79
[2024-12-02 10:58] VITALS: BP 110/82
== END 2024-12-02 11:01 | disposition home or self-care (01) ==
LOC: ATC 02:49
DX: D64.9 Anemia, unspecified (principal); I13.2 Hypertensive heart and chronic kidney disease with heart failure and with stage 5 chronic kidney disease, or end stage renal disease; E10.22 Type 1 diabetes mellitus with diabetic chronic kidney disease; N18.6 End stage renal disease; I50.32 Chronic diastolic (congestive) heart failure; G47.33 Obstructive sleep apnea (adult) (pediatric); J44.9 Chronic obstructive pulmonary disease, unspecified; E10.42 Type 1 diabetes mellitus with diabetic polyneuropathy; K21.9 Gastro-esophageal reflux disease without esophagitis; E78.5 Hyperlipidemia, unspecified; G89.4 Chronic pain syndrome; K58.9 Irritable bowel syndrome, unspecified; E66.01 Morbid (severe) obesity due to excess calories; Z68.41 Body mass index [BMI] 40.0-44.9, adult; Z99.2 Dependence on renal dialysis; Z87.891 Personal history of nicotine dependence; Z90.710 Acquired absence of both cervix and uterus; Z89.612 Acquired absence of left leg above knee; Z89.611 Acquired absence of right leg above knee; Z88.0 Allergy status to penicillin; Z79.4 Long term (current) use of insulin; Z79.890 Hormone replacement therapy; Z79.899 Other long term (current) drug therapy
CPT/HCPCS: 36430; 86850; 86900; 86901; 86923; J7050; P9016

== ENCOUNTER 2024-12-05 11:32 | Inpatient (IN) | payer MEDICARE, OTHER ==
[2024-12-05] VITALS (15 sets, daily range): BP systolic 123–183; BP diastolic 38–121
[~2024-12-05] VITALS: Ht 121.9 cm; Wt 129.5 kg
[2024-12-05 12:11] LABS: Calcium, Ionized (POC) 1.08 mmol/L (1.10-1.46); Chloride (POC) 98 mmol/L (98-108); Creatinine (POC) 8.1 mg/dL (0.6-1.0); Glucose (ISTAT POC) 74 mg/dL (70-99); Hematocrit (POC) 32.0 % (36.0-46.0); Hemoglobin (POC) 10.9 g/dL (12.0-16.0); Potassium (POC) 6.8 mmol/L (3.5-5.5); Sodium (POC) 133 mmol/L (135-148); Total CO2 (POC) 25 mmol/L (21-32)
[2024-12-05 12:12] LABS: pH Blood Venous 7.32 (7.34-7.37)
[2024-12-05 12:25] LABS: BASOPHILS ABSOLUTE AUTO 0.05 K/mm3 (0.00-0.23); BASOPHILS PERCENT AUTO 1 % (0-2); EOSINOPHILS ABSOLUTE AUTO 0.42 K/mm3 (0.00-0.68); EOSINOPHILS PERCENT AUTO 7 % (0-6); Hematocrit 32.9 % (33.0-51.0); Hemoglobin 10.0 g/dL (11.5-16.0); IMMATURE GRAN ABSOLUTE AUTO 0.01 K/mm3 (0.00-0.10); IMMATURE GRAN PERCENT AUTO 0 % (0-1); LYMPHOCYTES ABSOLUTE AUTO 0.49 K/mm3 (0.84-5.20); LYMPHOCYTES PERCENT AUTO 8 % (21-46); MONOCYTES ABSOLUTE AUTO 0.39 K/mm3 (0.16-1.47); MONOCYTES PERCENT AUTO 6 % (4-13); Mean Corpuscular HGB Conc 30.4 g/dL (31.5-36.5); Mean Corpuscular Volume 95 fL (80-100); NEUTROPHILS ABSOLUTE AUTO 4.87 K/mm3 (1.96-9.15); NEUTROPHILS PERCENT AUTO 78 % (41-73); NRBC ABSOLUTE 0.00 K/mm3 (0.00-0.02); NRBC Auto 0.0 /100 WBC (0.0-0.2); Platelet Count 228 K/mm3 (150-400); RDW Coefficient Variation 16.5 % (11.7-14.2); RDW Standard Deviation 55.1 fL (35.1-46.3)
[2024-12-05] MEDS ORDERED: OxyCODONE 10/Acetamin 325 TABLET PO ONE (12:25)
[2024-12-05 13:01] LABS: Alanine Aminotransfer (ALT/SGP 30.0 U/L (12-78); Albumin, Blood 3.2 g/dL (3.4-5.0); Albumin/Globulin Ratio 0.8 (0.8-1.8); Anion Gap 14.0 mmol/L (3-11); Aspartate Aminotrans (AST/SGOT 19.0 U/L (12-37); Bilirubin, Total 0.4 mg/dL (0.1-1.0); Blood Urea Nitrogen 75.0 mg/dL (8-24); CO2, Blood 25.0 mmol/L (21-32); Calcium, Blood 8.8 mg/dL (8.5-10.1); Chloride, Blood 99.0 mmol/L (98-108); Creatinine, Blood 8.09 mg/dL (0.40-1.00); Globulin, Blood 3.8 g/dL (2.2-4.0); Glucose, Blood 73.0 mg/dL (70-99); Potassium, Blood 6.7 mmol/L (3.5-5.5); Sodium, Blood 131.0 mmol/L (136-145); Total Protein, Blood 7.0 g/dL (6.4-8.2)
[2024-12-05] MEDS ORDERED: Insulin Regular 100 Unit/ML 1ML Dose IV ONE (13:05)
[2024-12-05] MEDS ORDERED: Albuterol 2.5 MG/3 ML VIAL INH SCH (13:05)
[2024-12-05] MEDS ORDERED: Polyethylene Glycol 3350 17 gm PO PRN (15:00)
[2024-12-05] MEDS ORDERED: Darbepoetin (Pharmacy Consult) SC SCH (15:05)
[2024-12-05] MEDS ORDERED: Lidocaine 2% Jelly Uro-Jet TOP ONE (15:20)
[2024-12-05] MEDS ORDERED: Insulin Human Lispro 100 Units/ML 3ML Syringe SC SCH (16:30)
[2024-12-05] MEDS ORDERED: Calcium Acetate 667 MG Gel Cap PO SCH (17:30)
[2024-12-05] MEDS ORDERED: Heparin Sodium,Porcine 5,000 UNIT/0.5 ML SDV SC SCH ×2 (21:00)
[2024-12-05] MEDS ORDERED: OxyCODONE 10/Acetamin 325 TABLET PO PRN (21:30)
[2024-12-05] MEDS ORDERED: TRESIBA FL200 UNIT/2 (22:41)
[2024-12-06] VITALS (18 sets, daily range): BP systolic 104–180; BP diastolic 40–78
[2024-12-06 06:35] LABS: Hematocrit 33.1 % (33.0-51.0); Hemoglobin 10.0 g/dL (11.5-16.0)
[2024-12-06 06:56] LABS: Albumin, Blood 2.9 g/dL (3.4-5.0); Anion Gap 12 mmol/L (3-11); Blood Urea Nitrogen 49 mg/dL (8-24); CO2, Blood 27 mmol/L (21-32); Calcium, Blood 8.5 mg/dL (8.5-10.1); Chloride, Blood 98 mmol/L (98-108); Creatinine, Blood 5.90 mg/dL (0.40-1.00); Glucose, Blood 255 mg/dL (70-99); Magnesium, Blood 2.7 mg/dL (1.6-2.4); Phosphorus, Blood 5.6 mg/dL (2.5-4.9); Potassium, Blood 5.2 mmol/L (3.5-5.5); Sodium, Blood 132 mmol/L (136-145)
[2024-12-06] MEDS ORDERED: Vitamin B Cmplx/Vit C/Folic Ac 1 Tab PO SCH (09:00)
[2024-12-06] MEDS ORDERED: Calcium Acetate 667 MG Gel Cap PO SCH (12:30)
[2024-12-06] MEDS ORDERED: Formoterol/Mometasone MDI 5/100 mcg 13 GM INH SCH (15:20)
[2024-12-06] MEDS ORDERED: Insulin Glargine-Yfgn 100 Unit/mL 3 ML SYR SC SCH (21:00)
[2024-12-06] MEDS ORDERED: Insulin Glargine,Hum.Rec.Anlog 100 UNIT/ML 3MLSYR SC SCH (21:00)
[2024-12-07] VITALS (16 sets, daily range): BP systolic 112–157; BP diastolic 37–84
[2024-12-07 07:27] LABS: Hematocrit 29.2 % (33.0-51.0); Hemoglobin 9.0 g/dL (11.5-16.0)
[2024-12-07 07:43] LABS: Albumin, Blood 2.6 g/dL (3.4-5.0); Anion Gap 11 mmol/L (3-11); Blood Urea Nitrogen 38 mg/dL (8-24); CO2, Blood 29 mmol/L (21-32); Calcium, Blood 8.2 mg/dL (8.5-10.1); Chloride, Blood 98 mmol/L (98-108); Creatinine, Blood 5.32 mg/dL (0.40-1.00); Glucose, Blood 314 mg/dL (70-99); Magnesium, Blood 2.5 mg/dL (1.6-2.4); Phosphorus, Blood 5.6 mg/dL (2.5-4.9); Potassium, Blood 4.5 mmol/L (3.5-5.5); Sodium, Blood 133 mmol/L (136-145)
[2024-12-07] MEDS ORDERED: Darbepoetin Alfa In Albumn Sol 60 MCG/0.3 ML Syringe SC ONE (15:20)
[2024-12-07] MEDS ORDERED: Ondansetron 4 MG SoluTab MM PRN (17:15)
[2024-12-08 06:22] LABS: Hematocrit 30.1 % (33.0-51.0); Hemoglobin 9.3 g/dL (11.5-16.0)
[2024-12-08 07:11] LABS: Albumin, Blood 2.8 g/dL (3.4-5.0); Anion Gap 12 mmol/L (3-11); Blood Urea Nitrogen 34 mg/dL (8-24); CO2, Blood 28 mmol/L (21-32); Calcium, Blood 8.8 mg/dL (8.5-10.1); Chloride, Blood 101 mmol/L (98-108); Creatinine, Blood 4.77 mg/dL (0.40-1.00); Glucose, Blood 178 mg/dL (70-99); Magnesium, Blood 2.5 mg/dL (1.6-2.4); Phosphorus, Blood 5.4 mg/dL (2.5-4.9); Potassium, Blood 4.6 mmol/L (3.5-5.5); Sodium, Blood 136 mmol/L (136-145)
[2024-12-08 07:37] VITALS: BP 132/68
== END 2024-12-08 15:20 | disposition home or self-care (01) | DRG 640 ==
LOC: ER 11:32 → MEDS 14:56 → ENPENDDIS 12-07 10:09 → MEDS 12-08 15:20
PROVIDERS: Emergency Medicine; Internal Medicine Nephrology; ADMIT Internal Medicine
PROC: 5A1D70Z Performance of Urinary Filtration, Intermittent, Less than 6 Hours Per Day (ICD-10-PCS; principal; 2024-12-05)
PROC: 3E03329 Introduction of Other Anti-infective into Peripheral Vein, Percutaneous Approach (ICD-10-PCS; 2024-12-05)
DX: E87.5 Hyperkalemia (principal); N18.6 End stage renal disease; N25.81 Secondary hyperparathyroidism of renal origin; I13.2 Hypertensive heart and chronic kidney disease with heart failure and with stage 5 chronic kidney disease, or end stage renal disease; I50.32 Chronic diastolic (congestive) heart failure; D63.1 Anemia in chronic kidney disease; E66.01 Morbid (severe) obesity due to excess calories; E87.1 Hypo-osmolality and hyponatremia; E11.22 Type 2 diabetes mellitus with diabetic chronic kidney disease; E11.51 Type 2 diabetes mellitus with diabetic peripheral angiopathy without gangrene; G47.33 Obstructive sleep apnea (adult) (pediatric); Z87.891 Personal history of nicotine dependence; I35.0 Nonrheumatic aortic (valve) stenosis; I05.0 Rheumatic mitral stenosis; I25.10 Atherosclerotic heart disease of native coronary artery without angina pectoris; Z98.890 Other specified postprocedural states; Z90.710 Acquired absence of both cervix and uterus; Z79.4 Long term (current) use of insulin; Z79.899 Other long term (current) drug therapy; Z88.0 Allergy status to penicillin; Z99.2 Dependence on renal dialysis; Z86.711 Personal history of pulmonary embolism; Z89.512 Acquired absence of left leg below knee; Z89.511 Acquired absence of right leg below knee; Z99.3 Dependence on wheelchair; Z99.81 Dependence on supplemental oxygen; Z91.148 Patient's other noncompliance with medication regimen for other reason
CPT/HCPCS: 36415; 71045; 80047; 80053; 80069; 82803; 82947; 83735; 83880; 84484; 85014; 85018; 85025; 93005; 93010; 94640; 94664; 94760; 96374; 96375; 99285-25; A9270; J0612; J0881; J1644; J1815; J1938

== ENCOUNTER 2025-03-03 13:15 | Inpatient (IN) | payer MEDICARE, OTHER ==
[~2025-03-03] VITALS: Ht 182.9 cm; Wt 129.3 kg
[~2025-03-03 13:15] MED LIST changes: +Crestor40 MG PO; +TRESIBA FL200 UNIT/2
[2025-03-03 14:18] LABS: BASOPHILS ABSOLUTE AUTO 0.03 K/mm3 (0.00-0.23); BASOPHILS PERCENT AUTO 1 % (0-2); EOSINOPHILS ABSOLUTE AUTO 0.20 K/mm3 (0.00-0.68); EOSINOPHILS PERCENT AUTO 5 % (0-6); Hematocrit 31.3 % (33.0-51.0); Hemoglobin 9.8 g/dL (11.5-16.0); IMMATURE GRAN ABSOLUTE AUTO 0.01 K/mm3 (0.00-0.10); IMMATURE GRAN PERCENT AUTO 0 % (0-1); LYMPHOCYTES ABSOLUTE AUTO 0.37 K/mm3 (0.84-5.20); LYMPHOCYTES PERCENT AUTO 10 % (21-46); MONOCYTES ABSOLUTE AUTO 0.20 K/mm3 (0.16-1.47); MONOCYTES PERCENT AUTO 5 % (4-13); Mean Corpuscular HGB Conc 31.3 g/dL (31.5-36.5); Mean Corpuscular Volume 95 fL (80-100); NEUTROPHILS ABSOLUTE AUTO 2.97 K/mm3 (1.96-9.15); NEUTROPHILS PERCENT AUTO 79 % (41-73); NRBC ABSOLUTE 0.00 K/mm3 (0.00-0.02); NRBC Auto 0.0 /100 WBC (0.0-0.2); Platelet Count 152 K/mm3 (150-400); RDW Coefficient Variation 13.9 % (11.7-14.2); RDW Standard Deviation 48.8 fL (35.1-46.3)
[2025-03-03 14:38] LABS: Alanine Aminotransfer (ALT/SGP 18.0 U/L (12-78); Albumin, Blood 3.1 g/dL (3.4-5.0); Albumin/Globulin Ratio 0.8 (0.8-1.8); Anion Gap 10.0 mmol/L (3-11); Aspartate Aminotrans (AST/SGOT 11.0 U/L (12-37); Bilirubin, Total 0.3 mg/dL (0.1-1.0); Blood Urea Nitrogen 30.0 mg/dL (8-24); CO2, Blood 31.0 mmol/L (21-32); Calcium, Blood 8.2 mg/dL (8.5-10.1); Chloride, Blood 97.0 mmol/L (98-108); Creatinine, Blood 4.57 mg/dL (0.40-1.00); Globulin, Blood 4.0 g/dL (2.2-4.0); Glucose, Blood 197.0 mg/dL (70-99); Potassium, Blood 3.3 mmol/L (3.5-5.5); Sodium, Blood 135.0 mmol/L (136-145); Total Protein, Blood 7.1 g/dL (6.4-8.2)
[2025-03-03] MEDS ORDERED: FentaNYL Citrate 50 MCG/ML 2 ML Injection IV ONE ×2 (15:15→17:05)
[2025-03-03] MEDS ORDERED: CefTRIAXone Sodium 1,000 MG in NS 100 ML IV ONE (16:05)
[2025-03-03] MEDS ORDERED: CEPH250A PO (17:14)
[2025-03-03] MEDS ORDERED: Vancomycin (Pharmacy Consult) IV ONE (17:50)
[2025-03-03] MEDS ORDERED: FLU VACC TS2025-26(6MOS UP)/PF 45 MCG/0.5 ML SYRINGE IM SCH (18:15)
[2025-03-03] MEDS ORDERED: Ondansetron HCl 2 MG / ML 2ML Vial IV PRN (18:15)
[2025-03-03] MEDS ORDERED: FentaNYL Citrate 50 MCG/ML 2 ML Injection IV PRN (18:15)
[2025-03-03] MEDS ORDERED: Cefepime HCl 1,000 MG in NS 100 ML IV SCH (19:00)
[2025-03-03] MEDS ORDERED: Linezolid 600MG/Iso-Dext 300ML 300 ML IV SCH (19:00)
[2025-03-03] MEDS ORDERED: Percocet 10-321 EACH PO (19:18)
[2025-03-03] MEDS ORDERED: OxyCODONE 10/Acetamin 325 TABLET PO PRN (19:20)
[2025-03-03] MEDS ORDERED: NS 250 ML IV PRN (19:35)
[2025-03-03 20:45] VITALS: BP 143/63
[2025-03-03] MEDS ORDERED: Darbepoetin (Pharmacy Consult) SC SCH (21:50)
[2025-03-03] MEDS ORDERED: NS IV SCH (22:00)
[2025-03-03] MEDS ORDERED: DAPTOMYCIN IV SCH (22:00)
[2025-03-03] MEDS ORDERED: Darbepoetin Alfa In Albumn Sol 40 MCG/0.4 ML SC SCH (22:00)
[2025-03-04] VITALS (21 sets, daily range): BP systolic 97–192; BP diastolic 38–121
[2025-03-04] MEDS ORDERED: Albuterol 2.5 MG/3 ML VIAL INH PRN (00:10)
[2025-03-04] MEDS ORDERED: Formoterol/Mometasone MDI 5/100 mcg 13 GM INH SCH (01:10)
[2025-03-04 04:43] LABS: BASOPHILS ABSOLUTE AUTO 0.03 K/mm3 (0.00-0.23); BASOPHILS PERCENT AUTO 1 % (0-2); EOSINOPHILS ABSOLUTE AUTO 0.26 K/mm3 (0.00-0.68); EOSINOPHILS PERCENT AUTO 8 % (0-6); Hematocrit 31.0 % (33.0-51.0); Hemoglobin 9.8 g/dL (11.5-16.0); IMMATURE GRAN ABSOLUTE AUTO 0.01 K/mm3 (0.00-0.10); IMMATURE GRAN PERCENT AUTO 0 % (0-1); LYMPHOCYTES ABSOLUTE AUTO 0.41 K/mm3 (0.84-5.20); LYMPHOCYTES PERCENT AUTO 12 % (21-46); MONOCYTES ABSOLUTE AUTO 0.22 K/mm3 (0.16-1.47); MONOCYTES PERCENT AUTO 7 % (4-13); Mean Corpuscular HGB Conc 31.6 g/dL (31.5-36.5); Mean Corpuscular Volume 95 fL (80-100); NEUTROPHILS ABSOLUTE AUTO 2.44 K/mm3 (1.96-9.15); NEUTROPHILS PERCENT AUTO 72 % (41-73); NRBC ABSOLUTE 0.00 K/mm3 (0.00-0.02); NRBC Auto 0.0 /100 WBC (0.0-0.2); Platelet Count 164 K/mm3 (150-400); RDW Coefficient Variation 14.0 % (11.7-14.2); RDW Standard Deviation 49.7 fL (35.1-46.3)
[2025-03-04 05:00] LABS: Alanine Aminotransfer (ALT/SGP 18.0 U/L (12-78); Albumin, Blood 2.5 g/dL (3.4-5.0); Albumin/Globulin Ratio 0.7 (0.8-1.8); Anion Gap 9.0 mmol/L (3-11); Aspartate Aminotrans (AST/SGOT 10.0 U/L (12-37); Bilirubin, Total 0.4 mg/dL (0.1-1.0); Blood Urea Nitrogen 36.0 mg/dL (8-24); CO2, Blood 32.0 mmol/L (21-32); Calcium, Blood 8.2 mg/dL (8.5-10.1); Chloride, Blood 99.0 mmol/L (98-108); Creatinine, Blood 5.39 mg/dL (0.40-1.00); Globulin, Blood 3.7 g/dL (2.2-4.0); Glucose, Blood 93.0 mg/dL (70-99); Magnesium, Blood 2.4 mg/dL (1.6-2.4); Phosphorus, Blood 4.4 mg/dL (2.5-4.9); Potassium, Blood 3.4 mmol/L (3.5-5.5); Sodium, Blood 137.0 mmol/L (136-145); Total Protein, Blood 6.2 g/dL (6.4-8.2)
--- NOTE | 2025-03-04 05:29 | NUR ---
PT REQUESTED MECIATION FOR PAIN TWICE ON THIS SHIFT. PATIENT RESPONDED WELL TO THE IV FENTANYL FOR PAIN ONCE SHE WAS NPO AT MIDNIGHT. PATIENT DID NOT GET ANY INSULIN ON THIS SHIFT. PHARMACY CALLED WITH DISCREPENCIES ON HOW HER INSULIN IS ORDERED IN THE COMPUTER VERSUS HER LAST ADMISSION, WILL CONSULT WITH DR HESS THIS MORNING. NO ACUTE EVENTS.
[2025-03-04] MEDS ORDERED: Potassium Chloride 10 Meq Tablet SA PO ONE (05:30)
[2025-03-04] MEDS ORDERED: Potassium Chl 10MEQ/Water100ML 100 ML IV ONE (06:45)
[2025-03-04] MEDS ORDERED: Insulin Human Lispro 100 Units/ML 3ML Syringe SC SCH ×2 (07:30→16:30)
[2025-03-04] MEDS ORDERED: Miconazole Nitrate 2% 85 GM PWD TOP SCH (09:00)
[2025-03-04 13:06] LABS: Ferritin, Serum 744.0 ng/mL (8-252); Total Iron Binding Capacity 131.0 ug/dL (250-450)
--- NOTE | 2025-03-04 18:20 | NUR ---
ASSUMED CARE OF PT. A/O X 4 SITTING UP IN BED MINIMAL REDDNESS NOTED TO LEFT STUMP THAT HAS PAIN AND POSSIBLE INFECTION. PT FEED SELF BREAKFAST AND THEN WAS TAKEN FOR DIALYSIS. [address] [facility]. VSS, PT UP IN BED MEDICATED FOR PAIN, AND INCREASED BLOOD SUGAR. NO CHANGE IN CONDITION.
[2025-03-04] MEDS ORDERED: Insulin Glargine 100 Unit/ML 3 ML SYR SC SCH (21:00)
[2025-03-05 04:48] VITALS: BP 108/52
--- NOTE | 2025-03-05 05:17 | NUR ---
PT MEDICATED WITH PRN PAIN MEDS PER EMAR UPON REQUEST. LINE DRAWS BACK AND FLUSHES. VITALS STABLE. NO ACUTE EVENTS. MRI ORDERED, NOT DONE.
[2025-03-05 05:26] LABS: BASOPHILS ABSOLUTE AUTO 0.05 K/mm3 (0.00-0.23); BASOPHILS PERCENT AUTO 1 % (0-2); EOSINOPHILS ABSOLUTE AUTO 0.29 K/mm3 (0.00-0.68); EOSINOPHILS PERCENT AUTO 8 % (0-6); Hematocrit 31.7 % (33.0-51.0); Hemoglobin 9.6 g/dL (11.5-16.0); IMMATURE GRAN ABSOLUTE AUTO 0.02 K/mm3 (0.00-0.10); IMMATURE GRAN PERCENT AUTO 1 % (0-1); LYMPHOCYTES ABSOLUTE AUTO 0.62 K/mm3 (0.84-5.20); LYMPHOCYTES PERCENT AUTO 16 % (21-46); MONOCYTES ABSOLUTE AUTO 0.36 K/mm3 (0.16-1.47); MONOCYTES PERCENT AUTO 9 % (4-13); Mean Corpuscular HGB Conc 30.3 g/dL (31.5-36.5); Mean Corpuscular Volume 97 fL (80-100); NEUTROPHILS ABSOLUTE AUTO 2.54 K/mm3 (1.96-9.15); NEUTROPHILS PERCENT AUTO 65 % (41-73); NRBC ABSOLUTE 0.00 K/mm3 (0.00-0.02); NRBC Auto 0.0 /100 WBC (0.0-0.2); Platelet Count 182 K/mm3 (150-400); RDW Coefficient Variation 14.1 % (11.7-14.2); RDW Standard Deviation 50.1 fL (35.1-46.3)
[2025-03-05 05:46] LABS: Albumin, Blood 2.6 g/dL (3.4-5.0); Anion Gap 7 mmol/L (3-11); Blood Urea Nitrogen 27 mg/dL (8-24); CO2, Blood 33 mmol/L (21-32); Calcium, Blood 8.5 mg/dL (8.5-10.1); Chloride, Blood 99 mmol/L (98-108); Creatinine, Blood 4.31 mg/dL (0.40-1.00); Glucose, Blood 181 mg/dL (70-99); Magnesium, Blood 2.3 mg/dL (1.6-2.4); Phosphorus, Blood 2.5 mg/dL (2.5-4.9); Potassium, Blood 3.6 mmol/L (3.5-5.5); Sodium, Blood 135 mmol/L (136-145)
[2025-03-05 08:13] VITALS: BP 107/71
[2025-03-05 18:01] VITALS: BP 118/90
--- NOTE | 2025-03-05 18:36 | NUR ---
SHIFT SUMMARY PT A&OX4, VSS, 2L O2 PRN FOR COMFORT, BED BOUND BASELINE D/T BLE AKA. PAIN MANAGED WITH PRN PERCOCET AND FENTANYL. MRI ATTEMPTED, BUT PT DID NOT FIT IN MRI MACHINE. PT ABLE TO MAKE NEEDS KNOWN, CALL LIGHT IN REACH.
[2025-03-05 22:41] VITALS: BP 140/58
[2025-03-06] VITALS (16 sets, daily range): BP systolic 80–130; BP diastolic 46–95
--- NOTE | 2025-03-06 04:24 | NUR ---
SHIFT SUMMARY 54 YR F ADMITTED ON 03/03/25. FULL CODE. NO ACUTE CHANGES THIS SHIFT. PT MEDICATED Q2 FOR PAIN ALTERNATING FENTANYL AND PERCOCET. SHE APPEARS TO HAVE RESTED COMFORTABLY THROUGHOUT THE NIGHT. NO NEW CHANGES TO REPORT. A&O X 4 AND ABLE TO MAKE HER NEEDS KNOWN. BED IN LOW POSITION AND CALL LIGHT IN REACH.
[2025-03-06 06:12] LABS: Hematocrit 30.2 % (33.0-51.0); Hemoglobin 9.2 g/dL (11.5-16.0)
[2025-03-06 06:48] LABS: Albumin, Blood 2.4 g/dL (3.4-5.0); Anion Gap 11 mmol/L (3-11); Blood Urea Nitrogen 43 mg/dL (8-24); CO2, Blood 28 mmol/L (21-32); Calcium, Blood 8.2 mg/dL (8.5-10.1); Chloride, Blood 98 mmol/L (98-108); Creatinine, Blood 5.46 mg/dL (0.40-1.00); Glucose, Blood 262 mg/dL (70-99); Magnesium, Blood 2.1 mg/dL (1.6-2.4); Phosphorus, Blood 3.0 mg/dL (2.5-4.9); Potassium, Blood 4.6 mmol/L (3.5-5.5); Sodium, Blood 132 mmol/L (136-145)
[2025-03-06] MEDS ORDERED: HYDROCODONE-AC1 EAC7 PO (16:03)
[2025-03-06] MEDS ORDERED: PREGABALIN50 MG PO (16:04)
[2025-03-06] MEDS ORDERED: TRELEGY ELLIPT1 EACH INH (16:05)
[2025-03-06] MEDS ORDERED: Calcium Acetat667 MG PO (16:05)
[2025-03-06] MEDS ORDERED: HUMALOG KW100 UNIT/1 SC (16:05)
[2025-03-06] MEDS ORDERED: FURO80 PO (16:06)
[2025-03-06] MEDS ORDERED: JARDIANCE10 MG PO (16:06)
[2025-03-06] MEDS ORDERED: MELATONIN10 M1 PO (16:07)
--- NOTE | 2025-03-06 19:14 | NUR ---
SHIFT SUMMARY PT A&OX4, VSS, 2L O2 PRN FOR COMFORT, NON-TELE. DIALYSIS TODAY, ALSO PLANNED FOR TOMORROW. CT COMPLETED TODAY. PAIN MANAGED WITH PRN OXYCODONE AND FENTANYL. NO BM THIS SHIFT. PT ABLE TO MAKE NEEDS KNOWN, CALL LIGHT IN REACH.
[2025-03-07 03:45] VITALS: BP 122/68
--- NOTE | 2025-03-07 05:10 | NUR ---
SHIFT SUMMARY 54 YR F ADMITTED ON 03/03/25. FULL CODE. NO ACUTE CHANGES THIS SHIFT. PT IS FREQUENTLY REQUESTING PAIN MEDS (EVERY 2 HOURS). CURRENTLY ALTERNATING PERCOCET/FENTANYL. SHE STATES SHE DID NOT SLEEP WELL LAST NIGHT. NO BM THIS SHIFT. PT STATES SHE IS VERY ANXIOUS TO GET THE RESULTS OF HER CT DONE YESTERDAY. A&O X 4 AND ABLE TO MAKE HER NEEDS KNOWN. NO NEW CHANGES TO REPORT. BED IN LOW POSITION AND CALL LIGHT IN REACH.
[2025-03-07 05:53] LABS: Hematocrit 30.7 % (33.0-51.0); Hemoglobin 9.3 g/dL (11.5-16.0)
[2025-03-07 06:44] LABS: Albumin, Blood 2.7 g/dL (3.4-5.0); Anion Gap 9 mmol/L (3-11); Blood Urea Nitrogen 34 mg/dL (8-24); CO2, Blood 31 mmol/L (21-32); Calcium, Blood 8.0 mg/dL (8.5-10.1); Chloride, Blood 97 mmol/L (98-108); Creatinine, Blood 4.66 mg/dL (0.40-1.00); Glucose, Blood 348 mg/dL (70-99); Magnesium, Blood 2.1 mg/dL (1.6-2.4); Phosphorus, Blood 3.1 mg/dL (2.5-4.9); Potassium, Blood 4.3 mmol/L (3.5-5.5); Sodium, Blood 133 mmol/L (136-145)
[2025-03-07 07:30] VITALS: BP 125/65
[2025-03-07] MEDS ORDERED: Insulin NPH 100 Unit / ML 10ML Vial SC ONE (08:00)
[2025-03-07] MEDS ORDERED: Magnesium Hydroxide Conc 10 ML UDC PO ONE ×2 (09:55→13:05)
[2025-03-07 15:09] VITALS: BP 108/60
[2025-03-07] MEDS ORDERED: Percocet 10-321 EACH PO (15:32)
--- NOTE | 2025-03-07 16:48 | NUR ---
DISCHARGE NOTE PT EDUCATED ON DISCHARGE PACKET AND INSTRUCTIONS. DR. KAUFFMAN ORDERED TO STOP TAKING HOME HYDROCODONE AND WROTE A HARD SCRIPT FOR PERCOCET . HARD SCRIPT PLACED IN FOLDER FOR PT ALONG WITH OTHER EDUCATION. PT TO FOLLOW UP WITH PCP WITHIN 1 WEEK AND ORTHOPEDIC SURGEON WITHIN 10 DAYS. PT VERBALIZED UNDERSTANDING. RIDE ARRANGED VIA WHEELCHAIR TRANSPORT AND USING PT HOME WHEELCHAIR. FOOD BAG PROVIDED TO PT. ALL BELONGINGS GATHERED AND RETURNED. POWERGLIDE REMOVED FROM LEFT ARM. NO QUESTIONS OR CONCERNS PRIOR TO DC. HOME LIFT SHEET UNDER PT AND SON AT HOME TO MEET PT.
--- NOTE | 2025-03-07 17:34 | NUR ---
pt med rec keeps failing to [facility] on [address]. notified pt and she did not want me to send her med rec to any other [facility]. no new meds. pt has physical hard script.
== END 2025-03-07 16:45 | disposition home health service (06) | DRG 564 ==
LOC: ER 13:15 → SURS 17:51 → MEDS 17:51 → ENPENDDIS 03-07 13:18 → MEDS 03-07 16:45
PROVIDERS: Internal Medicine; Internal Medicine Nephrology; Student in an Organized Health Care Education/Training Program; ADMIT Internal Medicine
PROC: 3E03329 Introduction of Other Anti-infective into Peripheral Vein, Percutaneous Approach (ICD-10-PCS; principal; 2025-03-03)
PROC: 5A1D70Z Performance of Urinary Filtration, Intermittent, Less than 6 Hours Per Day (ICD-10-PCS; 2025-03-04)
DX: T87.89 Other complications of amputation stump (principal); N18.6 End stage renal disease; I13.2 Hypertensive heart and chronic kidney disease with heart failure and with stage 5 chronic kidney disease, or end stage renal disease; I50.32 Chronic diastolic (congestive) heart failure; F11.20 Opioid dependence, uncomplicated; N25.81 Secondary hyperparathyroidism of renal origin; E66.2 Morbid (severe) obesity with alveolar hypoventilation; E87.1 Hypo-osmolality and hyponatremia; F06.4 Anxiety disorder due to known physiological condition; E11.22 Type 2 diabetes mellitus with diabetic chronic kidney disease; D63.1 Anemia in chronic kidney disease; E11.40 Type 2 diabetes mellitus with diabetic neuropathy, unspecified; J45.909 Unspecified asthma, uncomplicated; E11.51 Type 2 diabetes mellitus with diabetic peripheral angiopathy without gangrene; I89.0 Lymphedema, not elsewhere classified; M19.90 Unspecified osteoarthritis, unspecified site; E87.70 Fluid overload, unspecified; R60.0 Localized edema; E88.09 Other disorders of plasma-protein metabolism, not elsewhere classified; G89.4 Chronic pain syndrome; E78.5 Hyperlipidemia, unspecified; E03.9 Hypothyroidism, unspecified; F32.A Depression, unspecified; F17.210 Nicotine dependence, cigarettes, uncomplicated; I08.0 Rheumatic disorders of both mitral and aortic valves; E87.6 Hypokalemia; Z99.2 Dependence on renal dialysis; Z99.3 Dependence on wheelchair; Z86.711 Personal history of pulmonary embolism; Z86.14 Personal history of Methicillin resistant Staphylococcus aureus infection; Z86.19 Personal history of other infectious and parasitic diseases; Z68.38 Body mass index [BMI] 38.0-38.9, adult; Z88.0 Allergy status to penicillin; Z88.8 Allergy status to other drugs, medicaments and biological substances; Z89.611 Acquired absence of right leg above knee; Z89.612 Acquired absence of left leg above knee; Z79.4 Long term (current) use of insulin; Z79.01 Long term (current) use of anticoagulants; Z79.890 Hormone replacement therapy; Z79.51 Long term (current) use of inhaled steroids
CPT/HCPCS: 36415; 71046; 73552; 73701; 80053; 80069; 82728; 82947; 83540; 83550; 83735; 83880; 84100; 84484; 85014; 85018; 85025; 93005; 93010; 94640; 94664; 94760; 96365; 96375; 96376; 99285-25; A9270; J0692; J0696; J0878; J0881; J1815; J3010; J3480; J7050; Q9967

== ENCOUNTER → 2025-04-03 | Outpatient (CLI) | payer MEDICARE, OTHER ==
[~2025-04-03] MED LIST changes: +CEPH250A PO; +HUMALOG KW100 UNIT/1 SC; +MELATONIN10 M1 PO; +PREGABALIN50 MG PO; +TRELEGY ELLIPT1 EACH INH
== END | disposition home or self-care (01) ==
LOC: LAB SHORT 11:11 → LAB 11:11
DX: N18.6 End stage renal disease (principal)
CPT/HCPCS: 82330; 84132